=== PATIENT | female | born 1960 | race Caucasian/White ===

== ENCOUNTER 2024-05-07 22:49 | Emergency (ER) | payer OTHER, SELFPAY ==
[2024-05-07 22:57] VITALS: BP 138/85; PULSE 79; TEMP 36.7; O2SAT 97; BMI 38.3
--- NOTE | 2024-05-07 23:06 | XR_ITS ---
The [address] [address] Patient Name: RACHAEL HOPKINS MRN: [id number] date: 1960 Sex: F Assigned Patient Location: ED.MAIN Current Patient Location: ED.MAIN Accession/Order Number: [id number] Exam Date: 05/07/2024 23:11 Report Date: 05/07/2024 23:50 At the request of: OMAR JASSO Procedure: XR ankle LT min 3V XR ankle LT min 3V 05/07/2024 11:11 PM EDT CLINICAL INDICATION: [place] something pop while walking COMPARISON: None. TECHNIQUE: 3 views of the left ankle. FINDINGS: The bones are intact. The alignment is anatomic. The joints are maintained. The soft tissues are grossly unremarkable. XR/XR ankle LT min 3V IMPRESSION: No acute osseous abnormality. Electronically authenticated by: NEGIN PERRY Date: 05/07/2024 23:50
--- NOTE | 2024-05-07 23:07 | ED_ITS ---
HPI HPI - Extremity Injury (Lower) General Chief Complaint: Extremity Injury, Lower Stated Complaint: lower extremity pain Time Seen by Provider: 05/07/24 23:03 Source: patient Mode of arrival: Wheelchair History of Present Illness HPI Narrative: presents complaining of acute pain of her left heel and ankle. States she is not sure what she did. States she was just walking and developed acute pain. No numbness or weakness Related Data Home Medications ?Medication ?Instructions ?Recorded ?Confirmed amitriptyline 25 mg tablet mg 05/07/24 citalopram 20 mg tablet mg 05/07/24 clopidogrel 75 mg tablet mg 05/07/24 gabapentin 300 mg capsule mg 05/07/24 levothyroxine 112 mcg tablet mcg 05/07/24 sacubitril 24 mg-valsartan 26 mg tab 05/07/24 tablet (Entresto) Allergies Allergy/AdvReac Type Severity Reaction Status Date / Time Penicillins Allergy Severe Swelling Verified 05/07/24 23:02 of Lip/Tongue/Throat metoclopramide [From Reglan] Allergy Intermediate Swelling Verified 05/07/24 23:02 of Lip/Tongue/Throat Opioid HPI Opioid Management Most Recent Pain and Opioid Data: No Data to Display Review of Systems ROS Status of ROS 10 or more systems reviewed and unremark able except as noted in history and below Exam Constitutional Vital Signs, click to edit/add: Last Vital Signs Temp 98.1 F 05/07/24 22:57 Pulse 79 05/07/24 22:57 Resp 18 05/07/24 22:57 BP 138/85 05/07/24 22:57 Pulse Ox 97 05/07/24 22:57 O2 Del Method Room Air 05/07/24 22:57 Common normals: no apparent distress, average body habitus, oriented x3, no limitations, healthy appearing, alert and well nourished [facility] Common normals: normocephalic and head/scalp atraumatic Eye Common normals: EOMs intact bilaterally and conjunctivae normal Respiratory Common normals: normal respiratory effort, no retractions and no use of accessory muscles Extremity Other: tenderness left Achilles and ankle Neuro Common normals: oriented x3, CN's II-XII intact bilaterally, moves all extremities and no focal motor deficits Psych Appearance: grossly normal Course Vital Signs Vital signs: Vital Signs Temperature 98.1 F 05/07/24 22:57 Pulse Rate 79 05/07/24 22:57 Respiratory Rate 18 05/07/24 22:57 Blood Pressure 138/85 05/07/24 22:57 Pulse Oximetry 97 05/07/24 22:57 Oxygen Delivery Method Room Air 05/07/24 22:57 Temperature 98.1 F 05/07/24 22:57 Pulse Rate 79 05/07/24 22:57 Respiratory Rate 18 05/07/24 22:57 Blood Pressure 138/85 05/07/24 22:57 Pulse Oximetry 97 05/07/24 22:57 Oxygen Delivery Method Room Air 05/07/24 22:57 MDM - Extremity Injury (Lower) MDM Narrative Medical decision making narrative: patient presents with acute pain left heel. Found to have tenderness of the medial malleolus and Achilles. Foot exam neg. xray of the ankle without acute osseous injury. Patient informed of the working diagnosis of partial tear of the Achilles. Placed in a CAM boot and provided crutches. 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 Electronically authenticated by: NEGIN PERRY Date: 05/07/2024 23:50 Discharge Plan Discharge Stand Alone Forms: Portal Instructions Chief Complaint: Extremity Injury, Lower Clinical Impression: Partial tear of left Achilles tendon Patient Disposition: Home, Self-Care Prescriptions / Home Meds: No Action clopidogrel 75 mg tablet citalopram 20 mg tablet amitriptyline 25 mg tablet gabapentin 300 mg capsule levothyroxine 112 mcg tablet Entresto 24-26 mg tablet Print Language: [place] Instructions: Achilles Tendon Rupture (ED) Additional Instructions: follow up with your reaming machine operator within next 2-5 days Referrals: ROBERT NEWELL [Primary Care Provider] - 1 week
[2024-05-08] MEDS: HYDROCODONE/ACET 5-325 MG TABLET 2 TAB PO ×2 (00:31→00:46)
[2024-05-08 00:54] VITALS: BP 130/81; PULSE 70; O2SAT 97
== END 2024-05-08 00:50 | disposition home or self-care (01) ==
PROVIDERS: Emergency Provider Internal Medicine; PCP Internal Medicine
DX: S86.012A Strain of left Achilles tendon, initial encounter (principal); X58.XXXA Exposure to other specified factors, initial encounter
CPT/HCPCS: 73610; 99283

== ENCOUNTER 2025-06-15 15:01 | Outpatient (RCR) | payer OTHER, SELFPAY | END 2025-08-21 14:21 | disposition home or self-care (01) | LOC: PT 15:01 | PROVIDERS: PCP Internal Medicine; Visit Provider Personal Emergency Response Attendant | DX: M25.512 Pain in left shoulder (principal); Z98.890 Other specified postprocedural states | CPT/HCPCS: 97014; 97110; 97140; 97162 ==

== ENCOUNTER 2025-08-30 19:52 | Outpatient (OUT) | payer OTHER, SELFPAY ==
--- OUTSIDE RECORDS SUMMARY | 2025-08-25 07:38 | XMS_ITS ---
Author Name Auto Generated Organization OHIP Support Name Relationship Address Phone Michael, [place] [address] [phone] Josh Liang Next of Kin [address] [place] [id number] + HOPKINS, CODI Next of Kin Unknown + HOPKINS, CODI Next of Kin Unknown + HOPKINS, CODI Next of Kin Unknown + HOPKINS, CODI Next of Kin Unknown + HOPKINS, CODI Next of Kin Unknown + HOPKINS, CODI Next of Kin Unknown + HOPKINS, CODI Next of Kin Unknown + HOPKINS, CODI Next of Kin Unknown + HOPKINS, CODI Next of Kin Unknown + HOPKINS, CODI Next of Kin Unknown + NONE Next of Kin Unknown Unavailable HOPKINS, CODI Next of Kin Unknown + Hopkins, [place] [address] [phone] Josh Liang Next of Kin [address] [facility] [place] [address] + HOPKINS, CODI Next of Kin Unknown + HOPKINS, CODI Next of Kin Unknown + Hopkins, [place] [address] [phone] Wodrich, Josh Next of Kin [address] [facility] [place] [address] + HOPKINS, CODI Next of Kin Unknown + HOPKINS, CODI Next of Kin Unknown + HOPKINS, CODI Next of Kin Unknown + NONE Next of Kin Unknown Unavailable HOPKINS, CODI Next of Kin Unknown + HOPKINS, CODI Next of Kin Unknown + HOPKINS, CODI Next of Kin Unknown + HOPKINS, CODI Next of Kin Unknown + HOPIKNS, CODI Next of Kin Unknown + Hopkins, [place] [address] [phone] Wodrleslie, Josh Next of Kin [address] [place] [address] + HOPKINS, CODI Next of Kin Unknown + HOPKINS, CODI Next of Kin Unknown + HOPKINS, CODI Next of Kin Unknown + HOPKINS, CODI Next of Kin Unknown + HOPKINS, CODI Next of Kin Unknown + HOPKINS, CODI Next of Kin Unknown + Hopkins, [place] [address] [phone] Wodrleslie, Josh Next of Kin [address] [facility] [place] [address] + Care Team Providers Care Db2 Dba Name Role Phone IVAN HERNÁNDEZ Attending Unavailable MELANIE ARTHUR Referring Unavailable ROBERT COLLINS Primary Care Unavailable IVAN HERNÁNDEZ Referring Unavailable ROBERT COLLINS Primary Care Unavailable XU OWUSU Attending Unavailable ROBERT COLLINS Attending Unavailable ROBERT COLLINS Referring Unavailable JR. ALLAN, BERNABE Sumner Attending Unavaila ROBERT Cardona Referring Unavailable JR. ALLAN, BERNABE Sumner Referring Unavaila diana HUNT JR., BERNABE Sumner Referring Unavaila diana HUNT JR., BERNABE Smuner Attending Unavaila RICHARD Holloway Attending Unavailable ISIDRO, RICHARD Gayle Attending Unavailable ISIDRO, RICHARD Gayle Attending Unavailable ISIDRO, RICHARD Gayle Attending Unavailable JOSH VELA Attending Unavailable JAZMINE BENOIT Referring Unavailable JOSH VELA Attending Unavailable JAZMINE BENOIT Referring Unavailable FELISHA, VIMAL Zapata Attending Unavailable JAZMINE BENOIT Referring Unavailable CHIRAG JONES Attending Unavailable RISALILESA ALLISON Referring Unavailable JAZMINE BENOIT Attending Unavailable UMER, XU Attending Unavailable DIDVIVIEN BARNETT Attending Unavailable OWUSU, XU Attending Unavailable HILL, L Referring Unavailable BRENDA BEGUM Attending Unavailable ISIDRO, RICHARD Gayle Attending Unavailable Hill, L Primary Care Unavailable STEPBERNABE CESAR Attending Unavailable STEPARSENIO BERNABE C Admitting Unavailable Hill, L Primary Care Unavailable STEPANICBERNABE C Attending Unavailable STEPANIC, BERNABE C Admitting Unavailable STEPANIC, BERNABE C Admitting Unavailable Hill, L Primary Care Unavailable STEPBERNABE CESAR Attending Unavailable Jazmien Benoit Attending Unavailab le Hill, Primary Care Unavailable Jazmine Benoit Admitting Unavailab Siobhan Multani Admitting Unavailable Siobhan Whitfield Attending Unavailable [place], Primary Care Unavailable Denys, Jordan S Admitting Unavailable DenysDonalif S Attending Unavailable Hill, Primary Care Unavailable Denys, Jordan S Admitting Unavailable Denys, Jordan S Attending Unavailable Hill, Primary Care Unavailable Liu Campbell Admitting Unavailable Liu Campbell Attending Unavailable [place], Primary Care Unavailable PROBLEMS DATE TYPE CONDITION / CODE ATTENDING STATUS [facility] 08/25/2025 Unknown Encounter for screening for malignant neoplasm of colon / Z12.11(ICD-10) Liu Campbell [facility] 04/29/2025 Final Diagnosis (Discharge) Pain in left shoulder / M25.512(ICD-10) [facility] [place] 04/02/2025 Final Diagnosis (Discharge) Encounter for other preprocedural examination / Z01.818(ICD-10) [facility] [place] 02/10/2025 Unknown Cervicalgia / M54.2(ICD-10) Jordan Mcfarlane [facility] 02/03/2025 Unknown Other chronic pa in / G89.29(ICD-10) Jordan Mcfarlane [facility] 01/06/2025 Admitting Diagnosis Other chest pain / R07.89(ICD-10) [facility] 01/06/2025 Admitting Diagnosis Body mass index (BMI) 39.0-39.9, adult / Z68.39(ICD-10) [facility] 07/08/2024 Admitting Diagnosis Nonrheumatic mitral (valve) insufficiency / I34.0(ICD-10) [facility] 01/23/2024 Admitting Diagnosis Personal history of nicotine dependence / Z87.891(ICD-10) [facility] 12/18/2023 Admitting Diagnosis Atherosclerotic heart disease of [place] coronary artery without angina pectoris / I25.10(ICD-10) [facility] 12/18/2023 Admitting Diagnosis Coronary angioplasty status / Z98.61(ICD-10) [facility] 12/18/2023 Admitting Diagnosis Old myocardial infarction / I25.2(ICD-10) [facility] 12/18/2023 Admitting Diagnosis Ischemic cardiomyopathy / I25.5(ICD-10) [facility] 12/18/2023 Admitting Diagnosis Essential (primary) hypertension / I10(ICD-10) [facility] 12/18/2023 Admitting Diagnosis Mixed hyperlipidemia / E78.2(ICD-10) [facility] 10/20/2024 Unknown Other interverte bral disc degeneration, lumbar region with discogenic back pain and lower extremity pain / M51.362(ICD-10) Jazmine Benoit [facility] 08/15/2024 Unknown Unspecified atrioventricular block / I44.30(ICD-10) [facility] 08/15/2024 Unknown Bradycardia, unspecified / R00.1(ICD-10) [facility] 08/15/2024 Unknown Syncope and darshana apse / R55(ICD-10) [facility] PROCED[facility] No Procedure Records Found RESULTS CODING SUMMARY Observed: 05/03/2025 12:11 PM Status: F Source: [facility] HTMLBase 64 [id number] [file] [id number] PATIENT HANDOUT Observed: 04/30/2025 4:13 PM Status: C Source: [facility] Outpatient Shoulder Discharg e Instructions 1.) For the next 24 hours, do not drink any alcoholic beverages, drive a motor vehicle, operate machinery or power tools, make any important decisions or sign important papers. 2.) Rest at home with moderate activity as tolerated for at least 24 hours. 3.) You may feel dizzy, lightheaded or sleepy following surgery. Please, have someone with you for the rest of the day and during the night. 4.) You may eat when you prefer, but it is usually best to start with liquids and gradually work up to solid foods. 5.) If you experience persistent nausea or vomiting, pain not controlled with your pain medicine and ice, bleeding that you feel is excessive, swelling or fever, please call Dr. Hunt at [phone]. 6.) Keep dressings in place, clean and dry until 05/04/25. 7.) On 05/04/25, remove the dressings, shower and cover the incision with band aids. 8.) Flex and extend elbow 15 times twice a day starting tomorrow. 9.) Use the sling continuously except to bathe. 10.) DO NOT LIFT ARM AWAY FROM SIDE!! 11.) Use Ice as needed to help with pain control. INPATIENT PATIENT SUMMARY Observed: 04/03 4:13 PM Status: C Source: [place] [address] Patient Discharge Instructions Name: ADELA HOPKINS : 1960 Patient Address: [address] [place] [address] Primary Care Provider: Name: Robert Collins After you are discharged if you find you have any questions, please, call [phone] ext [phone] to speak to a nurse. Discharge Diagnosis: Acute pain of left shoulder Prescription Information: If you have been given a prescription for narcotics, seek immediate medical attention if you have any difficulty breathing or any sudden status changes such as confusion and sleepiness. If you or anyone you know is experiencing suicidal thoughts, mental health, alcohol and/or drug addiction problems; contact the [facility] 24/06 Crisis Hotline -Text 4HLDK to 913223. If you received any narcotics, sedation, or any other medication that causes drowsiness for the next 24 hours, unless otherwise directed: ? Do not drive a car. ? Do not operate machinery such as power tools, lawn mowers, drills, sewing machines, or stoves ? Avoid alcoholic beverages and drugs for allergies, nerves, or sleep ? Do not make important personal or business decisions or sign any legal documents [facility] would like to thank you for allowing us to assist you with your healthcare needs. The following includes patient education materials and information regarding your injury/illness. ADELA HOPKINS has been given the following list of follow-up instructions, prescriptions, and patient education materials: Follow-up Instructions With: Address: When: Richard Camarena [address] [place] [address] Business (1) 05/14/2025 10:30 AM With: Address: When: [address], [facility] [address] [place] [place] [id number] [place] (1) Medications During the course of your visit, your medication list was updated with the most current information. The details of those changes are reflected below: Medications to Continue That Have Not Changed Other Medications amitriptyline (amitriptyline 50 mg oral tablet) 1 tab(s) Oral (given by mouth) once a day (at bedtime) as needed sleep. aspirin (aspirin 81 mg oral delayed release tablet) 1 tab(s) Oral (given by mouth) every day. atorvastatin (atorvastatin 40 mg oral tablet) 1 tab(s) Oral (given by mouth) every day. carvedilol (carvedilol 3.125 mg oral tablet) 1 tab(s) Oral (given by mouth) 2 times per day. cholecalciferol (Vitamin D3 1000 intl units oral capsule) 1 cap(s) Oral (given by mouth) every day. citalopram (CeleXA 40 mg oral tablet) 1 tab(s) Oral (given by mouth) every day. clopidogrel (Plavix 75 mg oral tablet) 1 tab(s) Oral (given by mouth) every day. cyanocobalamin (Vitamin B12 50 mcg oral tablet) 1 tab(s) Oral (given by mouth) every day. gabapentin (gabapentin 300 mg oral capsule) 2 cap(s) Oral (given by mouth) 2 times per day. levalbuterol (Xopenex HFA 45 mcg/inh inhalation aerosol) 2 puff(s) Inhale (breathe in) every 6 hours. as needed for wheezing. levothyroxine (levothyroxine 100 mcg (0.1 mg) oral tablet) 1 tab(s) Oral (given by mouth) every day. meclizine (meclizine 25 mg oral tablet) 1 tab(s) Oral (given by mouth) 3 times per day as needed for dizziness. multivitamin (Multi Vitamin+) 1 tab(s) Oral (given by mouth) Saturday, Saturday, and Saturday. nitroglycerin (nitroglycerin 0.4 mg sublingual tablet) 1 tab(s) Sublingual (dissolve under the tongue) every 5 minutes as needed for chest pain. pantoprazole (Protonix 40 mg oral delayed release tablet) 1 tab(s) Oral (given by mouth) every day as needed indigestion. sacubitril-valsartan (Entresto 24 mg-26 mg oral tablet) 1 tab(s) Oral (given by mouth) 2 times per day. semaglutide (Wegovy (1.7 mg dose) subcutaneous solution) 1.7 Milligram Subcutaneous (under the skin) Every . It is important to always keep an active list of medications available so that you can share with other providers and manage your medications appropriately. As an additional courtesy, we are also providing you with your final active medications list that you can keep with you. amitriptyline (amitriptyline 50 mg oral tablet) 1 tab(s) Oral (given by mouth) once a day (at bedtime) as needed sleep. aspirin (aspirin 81 mg oral delayed release tablet) 1 tab(s) Oral (given by mouth) every day. atorvastatin (atorvastatin 40 mg oral tablet) 1 tab(s) Oral (given by mouth) every day. carvedilol (carvedilol 3.125 mg oral tablet) 1 tab(s) Oral (given by mouth) 2 times per day. cholecalciferol (Vitamin D3 1000 intl units oral capsule) 1 cap(s) Oral (given by mouth) every day. citalopram (CeleXA 40 mg oral tablet) 1 tab(s) Oral (given by mouth) every day. clopidogrel (Plavix 75 mg oral tablet) 1 tab(s) Oral (given by mouth) every day. cyanocobalamin (Vitamin B12 50 mcg oral tablet) 1 tab(s) Oral (given by mouth) every day. gabapentin (gabapentin 300 mg oral capsule) 2 cap(s) Oral (given by mouth) 2 times per day. levalbuterol (Xopenex HFA 45 mcg/inh inhalation aerosol) 2 puff(s) Inhale (breathe in) every 6 hours. as needed for wheezing. levothyroxine (levothyroxine 100 mcg (0.1 mg) oral tablet) 1 tab(s) Oral (given by mouth) every day. meclizine (meclizine 25 mg oral tablet) 1 tab(s) Oral (given by mouth) 3 times per day as needed for dizziness. multivitamin (Multi Vitamin+) 1 tab(s) Oral (given by mouth) Saturday, Saturday, and Saturday. nitroglycerin (nitroglycerin 0.4 mg sublingual tablet) 1 tab(s) Sublingual (dissolve under the tongue) every 5 minutes as needed for chest pain. pantoprazole (Protonix 40 mg oral delayed release tablet) 1 tab(s) Oral (given by mouth) every day as needed indigestion. sacubitril-valsartan (Entresto 24 mg-26 mg oral tablet) 1 tab(s) Oral (given by mouth) 2 times per day. semaglutide (Wegovy (1.7 mg dose) subcutaneous solution) 1.7 Milligram Subcutaneous (under the skin) Every . Take only the medications listed above. Contact your doctor prior to taking any medications not on this list. Diet & Activity Patient Activity Level: As Tolerated Patient Diet: Regular Patient Activity Restrictions: Discontinue Alcohol Use, No driving, No heavy lifting, Stop Smoking Comment: Patient education materials, if any, will display below Outpatient Shoulder Discharge Instructions 1.) For the next 24 hours, do not drink any alcoholic beverages, drive a motor vehicle, operate machinery or power tools, make any important decisions or sign important papers. 2.) Rest at home with moderate activity as tolerated for at least 24 hours. 3.) You may feel dizzy, lightheaded or sleepy following surgery. Please, have someone with you for the rest of the day and during the night. 4.) You may eat when you prefer, but it is usually best to start with liquids and gradually work up to solid foods. 5.) If you experience persistent nausea or vomiting, pain not controlled with your pain medicine and ice, bleeding that you feel is excessive, swelling or fever, please call Dr. Hunt at [phone]. 6.) Keep dressings in place, clean and dry until 05/04/25. 7.) On 05/04/25, remove the dressings, shower and cover the incision with band aids. 8.) Flex and extend elbow 15 times twice a day starting tomorrow. 9.) Use the sling continuously except to bathe. 10.) DO NOT LIFT ARM AWAY FROM SIDE!! 11.) Use Ice as needed to help with pain control. Viruses or Bacteria What?s got you sick? Antibiotics only treat bacterial infections. Viral illnesses cannot be treated with antibiotics. When an antibiotic is not prescribed, ask your healthcare professional for tips on how to relieve symptoms and feel better. Usual Cause Illness Viruses Bacteria Antibiotic Needed Cold/Runny Nose NO Bronchitis/Chest Cold (in otherwise healthy children and adults) NO Whooping Cough Yes Flu NO Strep Throat Yes Sore Throat (except strep) NO Fluid in the middle ear (otitis media with effusion) NO Urinary Tract Infection Yes Antibiotics Aren?t Always the Answer www.cdc.gov/getsmart GET SMART Know When Antibiotics Work U.S. Department of Health and Human Services Centers for Disease Control and Prevention August 2014 INPATIENT CLINICAL SUMMARY Observed: 4:13 PM Status: C Source: [facility] SURGERY Clinical Discharge Summary PERSON INFORMATION Name ADELA HOPKINS Age 64 Years 1960 Sex FEMALE Language Ukrainian PCP Robert Collins Marital Status Med Service Ambulatory Surgery Acct# Arrival 04/30/2025 10:21:22 Visit Reason SURGERY - LEFT SHOULDER ARHTROSCOPY WITH ROTATOR CUFF REPAIR Acuity LOS 057 07:44 Address: [address] [place] [address] Comment: PROVIDER INFORMATION VITALS INFORMATION Vital Sign Triage Latest Temp Oral Temp Temporal Temp Intravascular Temp Axillary Temp Rectal 02 Sat 96 % 94 % Respiratory Rate Peripheral Pulse Rate Apical Heart Rate Blood Pressure / 66 mmHg / 80 mmHg Comment: MEDICAL INFORMATION Allergy Info: ticagrelor; esomeprazole; Reglan; cefdinir; penicillin Prescriptions Given: amitriptyline (amitriptyline 50 mg oral tablet) 1 tab(s) Oral (given by mouth) once a day (at bedtime) as needed sleep. aspirin (aspirin 81 mg oral delayed release tablet) 1 tab(s) Oral (given by mouth) every day. atorvastatin (atorvastatin 40 mg oral tablet) 1 tab(s) Oral (given by mouth) every day. carvedilol (carvedilol 3.125 mg oral tablet) 1 tab(s) Oral (given by mouth) 2 times per day. cholecalciferol (Vitamin D3 1000 intl units oral capsule) 1 cap(s) Oral (given by mouth) every day. citalopram (CeleXA 40 mg oral tablet) 1 tab(s) Oral (given by mouth) every day. clopidogrel (Plavix 75 mg oral tablet) 1 tab(s) Oral (given by mouth) every day. cyanocobalamin (Vitamin B12 50 mcg oral tablet) 1 tab(s) Oral (given by mouth) every day. gabapentin (gabapentin 300 mg oral capsule) 2 cap(s) Oral (given by mouth) 2 times per day. levalbuterol (Xopenex HFA 45 mcg/inh inhalation aerosol) 2 puff(s) Inhale (breathe in) every 6 hours. as needed for wheezing. levothyroxine (levothyroxine 100 mcg (0.1 mg) oral tablet) 1 tab(s) Oral (given by mouth) every day. meclizine (meclizine 25 mg oral tablet) 1 tab(s) Oral (given by mouth) 3 times per day as needed for dizziness. multivitamin (Multi Vitamin+) 1 tab(s) Oral (given by mouth) Saturday, Saturday, and Saturday. nitroglycerin (nitroglycerin 0.4 mg sublingual tablet) 1 tab(s) Sublingual (dissolve under the tongue) every 5 minutes as needed for chest pain. pantoprazole (Protonix 40 mg oral delayed release tablet) 1 tab(s) Oral (given by mouth) every day as needed indigestion. sacubitril-valsartan (Entresto 24 mg-26 mg oral tablet) 1 tab(s) Oral (given by mouth) 2 times per day. semaglutide (Wegovy (1.7 mg dose) subcutaneous solution) 1.7 Milligram Subcutaneous (under the skin) Every . Medication List: Medications to Continue That Have Not Changed Other Medications amitriptyline (amitriptyline 50 mg oral tablet) 1 tab(s) Oral (given by mouth) once a day (at bedtime) as needed sleep. aspirin (aspirin 81 mg oral delayed release tablet) 1 tab(s) Oral (given by mouth) every day. atorvastatin (atorvastatin 40 mg oral tablet) 1 tab(s) Oral (given by mouth) every day. carvedilol (carvedilol 3.125 mg oral tablet) 1 tab(s) Oral (given by mouth) 2 times per day. cholecalciferol (Vitamin D3 1000 intl units oral capsule) 1 cap(s) Oral (given by mouth) every day. citalopram (CeleXA 40 mg oral tablet) 1 tab(s) Oral (given by mouth) every day. clopidogrel (Plavix 75 mg oral tablet) 1 tab(s) Oral (given by mouth) every day. cyanocobalamin (Vitamin B12 50 mcg oral tablet) 1 tab(s) Oral (given by mouth) every day. gabapentin (gabapentin 300 mg oral capsule) 2 cap(s) Oral (given by mouth) 2 times per day. levalbuterol (Xopenex HFA 45 mcg/inh inhalation aerosol) 2 puff(s) Inhale (breathe in) every 6 hours. as needed for wheezing. levothyroxine (levothyroxine 100 mcg (0.1 mg) oral tablet) 1 tab(s) Oral (given by mouth) every day. meclizine (meclizine 25 mg oral tablet) 1 tab(s) Oral (given by mouth) 3 times per day as needed for dizziness. multivitamin (Multi Vitamin+) 1 tab(s) Oral (given by mouth) Saturday, Saturday, and Saturday. nitroglycerin (nitroglycerin 0.4 mg sublingual tablet) 1 tab(s) Sublingual (dissolve under the tongue) every 5 minutes as needed for chest pain. pantoprazole (Protonix 40 mg oral delayed release tablet) 1 tab(s) Oral (given by mouth) every day as needed indigestion. sacubitril-valsartan (Entresto 24 mg-26 mg oral tablet) 1 tab(s) Oral (given by mouth) 2 times per day. semaglutide (Wegovy (1.7 mg dose) subcutaneous solution) 1.7 Milligram Subcutaneous (under the skin) Every . Medications to Continue That Have Not Changed Other Medications amitriptyline (amitriptyline 50 mg oral tablet) 1 tab(s) Oral (given by mouth) once a day (at bedtime) as needed sleep. aspirin (aspirin 81 mg oral delayed release tablet) 1 tab(s) Oral (given by mouth) every day. atorvastatin (atorvastatin 40 mg oral tablet) 1 tab(s) Oral (given by mouth) every day. carvedilol (carvedilol 3.125 mg oral tablet) 1 tab(s) Oral (given by mouth) 2 times per day. cholecalciferol (Vitamin D3 1000 intl units oral capsule) 1 cap(s) Oral (given by mouth) every day. citalopram (CeleXA 40 mg oral tablet) 1 tab(s) Oral (given by mouth) every day. clopidogrel (Plavix 75 mg oral tablet) 1 tab(s) Oral (given by mouth) every day. cyanocobalamin (Vitamin B12 50 mcg oral tablet) 1 tab(s) Oral (given by mouth) every day. gabapentin (gabapentin 300 mg oral capsule) 2 cap(s) Oral (given by mouth) 2 times per day. levalbuterol (Xopenex HFA 45 mcg/inh inhalation aerosol) 2 puff(s) Inhale (breathe in) every 6 hours. as needed for wheezing. levothyroxine (levothyroxine 100 mcg (0.1 mg) oral tablet) 1 tab(s) Oral (given by mouth) every day. meclizine (meclizine 25 mg oral tablet) 1 tab(s) Oral (given by mouth) 3 times per day as needed for dizziness. multivitamin (Multi Vitamin+) 1 tab(s) Oral (given by mouth) Saturday, Saturday, and Saturday. nitroglycerin (nitroglycerin 0.4 mg sublingual tablet) 1 tab(s) Sublingual (dissolve under the tongue) every 5 minutes as needed for chest pain. pantoprazole (Protonix 40 mg oral delayed release tablet) 1 tab(s) Oral (given by mouth) every day as needed indigestion. sacubitril-valsartan (Entresto 24 mg-26 mg oral tablet) 1 tab(s) Oral (given by mouth) 2 times per day. semaglutide (Wegovy (1.7 mg dose) subcutaneous solution) 1.7 Milligram Subcutaneous (under the skin) Every . Medications to Continue That Have Not Changed Other Medications amitriptyline (amitriptyline 50 mg oral tablet) 1 tab(s) Oral (given by mouth) once a day (at bedtime) as needed sleep. aspirin (aspirin 81 mg oral delayed release tablet) 1 tab(s) Oral (given by mouth) every day. atorvastatin (atorvastatin 40 mg oral tablet) 1 tab(s) Oral (given by mouth) every day. carvedilol (carvedilol 3.125 mg oral tablet) 1 tab(s) Oral (given by mouth) 2 times per day. cholecalciferol (Vitamin D3 1000 intl units oral capsule) 1 cap(s) Oral (given by mouth) every day. citalopram (CeleXA 40 mg oral tablet) 1 tab(s) Oral (given by mouth) every day. clopidogrel (Plavix 75 mg oral tablet) 1 tab(s) Oral (given by mouth) every day. cyanocobalamin (Vitamin B12 50 mcg oral tablet) 1 tab(s) Oral (given by mouth) every day. gabapentin (gabapentin 300 mg oral capsule) 2 cap(s) Oral (given by mouth) 2 times per day. levalbuterol (Xopenex HFA 45 mcg/inh inhalation aerosol) 2 puff(s) Inhale (breathe in) every 6 hours. as needed for wheezing. levothyroxine (levothyroxine 100 mcg (0.1 mg) oral tablet) 1 tab(s) Oral (given by mouth) every day. meclizine (meclizine 25 mg oral tablet) 1 tab(s) Oral (given by mouth) 3 times per day as needed for dizziness. multivitamin (Multi Vitamin+) 1 tab(s) Oral (given by mouth) Saturday, Saturday, and Saturday. nitroglycerin (nitroglycerin 0.4 mg sublingual tablet) 1 tab(s) Sublingual (dissolve under the tongue) every 5 minutes as needed for chest pain. pantoprazole (Protonix 40 mg oral delayed release tablet) 1 tab(s) Oral (given by mouth) every day as needed indigestion. sacubitril-valsartan (Entresto 24 mg-26 mg oral tablet) 1 tab(s) Oral (given by mouth) 2 times per day. semaglutide (Wegovy (1.7 mg dose) subcutaneous solution) 1.7 Milligram Subcutaneous (under the skin) Every . Comment: Lab and Radiology Results Laboratory or Other Results This Visit (last charted value for your 04/30/2025 visit) No Laboratory or Other Results This Visit DIET & ACTIVITY Patient Activity Level: Patient Diet: Patient Activity Restrictions: DISCHARGE INFORMATION Discharge Disposition: Discharge Location: DEPART REASON INCOMPLETE INFORMATION PATIENT EDUCATION INFORMATION Instructions: Stepanic Shoulder Discharge Instructions ([facility]MPATRICK) Follow up: With: Address: When: Richard Camarena [address] [place] [id number] Business (1) 05/14/2025 10:30 AM With: Address: When: [address], [address] [place] [id number] Business (1) DIAGNOSIS Acute pain of left shoulder Comment: PHYS DOC NOTES ANESTHESIA NOTE Observed: 04/30/2025 3:32 PM Status: F Source: [facility] Patient: ADELA HOPKINS Age: 64 years Sex: FEMALE : 1960 Associated Diagnoses: None Author: Rafael Solorio MD Postoperative Information Post Operative Note: Post Anesthesia Care Unit. Health Status Allergies: Allergic Reactions (All) Severe Penicillin- No reactions were documented. Ticagrelor- No reactions were documented. Moderate Cefdinir- No reactions were documented. Reglan- No reactions were documented. Nonallergic Reactions (All) Mild Esomeprazole- No reactions were documented. Canceled/Inactive Reactions (All) Moderate Phenergan- No reactions were documented. Mild Toradol- No reactions were documented. Physical Examination Vital Signs 04/30/2025 15:24 EDT Temperature Temporal 36.0 DegC LOW Heart Rate Monitored 82 bpm Respiratory Rate 14 br/min Systolic Blood Pressure 134 mmHg HI Diastolic Blood Pressure 82 mmHg HI Mean Arterial Pressure, Cuff 99 mmHg SpO2 100 % Oxygen Flow Rate 6 L/min Oxygen Therapy Simple mask SpO2 Location Left hand General: No acute distress. Respiratory: Respirations are non-labored. Review / Management Condition: Stable. Assessment Anesthetic outcome No anesthetic complications noted. Adequate pain relief. No Complaint of nausea and vomiting. Plan Transfer/ Discharge: Patient can be discharged from PACU when criteria met. Condition stable. [Electronically Signed on: 04/30/2025 15:32 EDT] Rafael Solorio MD[Verified on: 04/30/2025 15:32 EDT] Rafael Solorio MD [facility] POSTOPERATIVE RECORD Observed: 04/03 1:40 PM Status: F Source: [facility] Phase II Record Summary Primary Physician: BERNABE HUNT DO Finalized Date/Time: 04/30/25 16:50:41 Pt. Name: ADELA HOPKINS/Sex: 1960 FEMALE Med Rec #: [id number] Physician: BERNABE HUNT DO Financial #: [id number] Pt. Type: D Room/Bed: / Admit/Disch: 04/30/25 10:21:22 - Institution: Phase II Case Times [facility] Pre-Care Text: Patient is free from s/s of injury. Patient remains free from compromised physical state related to surgery or anesthesia. Patient comfort maintained. Patient/family verbalize understanding of discharge instructions. Entry 1 In PACU II 04/30/25 15:58:00 Discharge from PACU 04/30/25 16:42:00 II Last Modified By: Patty Cochran RN 04/30/25 16:50:33 Post-Care Text: The patient remains free from s/s of injury. Patient's vital signs stable, circulation maintained, return to preop mental and physical status, opsite/dressing intact, minimal or absent nausea and vomiting, tolerates po intake. Patient verbalizes adequate pain control. Patient/family express understanding of discharge instructions. Finalized By: Patty Cochran RN Document Signatures Signed By: Patty Cochran RN 04/30/25 16:50 MAGR INTRAOPERATIVE RECORD Observed: 1:40 PM Status: C Source: [facility] Intra-Op Record Summary Primary Physician: BERNABE HUNT DO Finalized Date/Time: 04/30/25 16:48:53 Pt. Name: ADELA HOPKINS /Sex: 1960 FEMALE Med Rec #: [id number] Physician: BERNABE HUNT DO Financial #: [id number] Pt. Type: D Room/Bed: / Admit/Disch: 04/30/25 10:21:22 - Institution: Case Times MAGR Entry 1 Patient In Room Time 04/30/25 13:05:00 Out Room Time 04/30/25 15:20:00 Anesthesia Start Time 04/30/25 13:05:00 Stop Time 04/30/25 15:21:00 Surgery Start Time 04/30/25 13:40:00 Stop Time 04/30/25 15:18:00 Last Modified By: Pilar Alvarez RN 04/30/25 15:46:26 Case Attendance MAGR Entry 1 Entry 2 Entry 3 Case Attendee BERNABE HUNT Satya S MD Long, Barbara RN Role Performed Surgeon - Primary Anesthesiologist of Fiberglass Model Maker Record Time In 04/30/25 13:05:00 04/30/25 13:05:00 04/30/25 13:05:00 Time Out 04/30/25 15:20:00 04/30/25 15:20:00 04/30/25 15:20:00 Procedure Arthroscopy Arthroscopy Arthroscopy Shoulder(Left) Shoulder(Left) Shoulder(Left) Last Modified By: Pilar Alvarez RN, Barbara RN Long, Barbara RN 04/30/25 15:46:27 04/30/25 15:46:27 04/30/25 15:46:27 Entry 4 Entry 5 Case Attendee Lilo Polk CST, Lauren M POCKETED SPRING MACHINE OPERATOR CSFA Role Performed Scrub Personnel Crystal Inspector Time In 04/30/25 13:05:00 04/30/25 13:05:00 Time Out 04/30/25 15:20:00 04/30/25 15:04:00 Procedure Arthroscopy Arthroscopy Shoulder(Left) Shoulder(Left) Last Modified By: Pilar Alvarez RN, Barbara RN 04/30/25 15:46:27 04/30/25 15:46:27 General Comments: Pamela - Arthrex rep Surgical Procedures MAGR Pre-Care Text: A.20 Verifies operative procedure, surgical site, and laterality Im.150 Develops individualized plan of care Entry 1 Procedure Arthroscopy Shoulder Primary Procedure Yes Primary Surgeon BERNABE HUNT DO Modifiers Left Surgeon Comment LEFT SHOULDER Start 04/30/25 13:40:00 ARHTROSCOPY WITH ROTATOR CUFF REPAIR, BICEP TENODESIS ON LEFT Stop 04/30/25 15:18:00 Anesthesia Type General Surgical Service Orthopedics Wound Class Clean Technique Details Closure Technique Primary Entire procedure No was performed via laparoscope or robotic assistance Last Modified By: Pilar Alvarez RN 04/30/25 15:46:29 Post-Care Text: O.730 The patient's care is consistent with the individualized perioperative plan of care General Case Data MAGR Pre-Care Text: A.350.1 Classifies surgical wound Entry 1 Case Information OR MAGR OR 05 Case Level Level 4 Wound Class Clean Specialty Orthopedics ASA Class 3 Diagnosis Preop Diagnosis LEFT ROTATOR CUFF TEAR Postop Same As Preop Yes Postop Diagnosis LEFT ROTATOR CUFF TEAR Blunt or No Is the procedure No penetrating injury considered occured prior to Emergent/Urgent? the start of the procedure: Last Modified By: Pilar Alvarez RN 04/30/25 13:49:09 Post-Care Text: O.760 Patient receives consistent and comparable care regardless of the setting Time Out MAGR Entry 1 Procedure(s) Arthroscopy Shoulder(Left) Time Out Checklist Verifications Team Introductions Yes Confirmed Identity, Yes Completed Procedure, Incision Site, and Consent(s) Presence of Yes Site Verification, Yes Necessary Site Marking, Site Procedural Marking Equipment, Devices, Alternative, and/or and Implants Site Marking Verified Exception in Accordance with Facility Policy Anesthesia Review Antibiotic Received Yes All Anesthesia Yes Within an Concerns Addressed Appropriate Time Interval Prior to Surgical Incision Surgeon Review Anticipated Blood Yes Expected Case Yes Loss Risk Addressed Duration Addressed Critical and Yes Non-Routine Steps to be Performed Addressed Nurse Review Equipment Yes Fire Risk Yes Checks/Concerns Assessment Addressed Completed and Interventions Performed Diagnostic and Yes Sterilization n/a Radiological Test Concerns Addressed Results Displayed are Appropriate and Labeled Other Concerns n/a Addressed Time Out Lilo Polk POCKETED SPRING MACHINE OPERATOR, Time Out Time 04/30/25 13:40:00 Participants Pilar Alvarez RN, Rafael Solorio MD, Becca Gardner POCKETED SPRING MACHINE OPERATOR CSFA, BERNABE HUNT DO Last Modified By: Pilar Alvarez RN 04/30/25 13:50:14 Patient Positioning MAGR Pre-Care Text: A.280 Identifies baseline musculoskeletal status Im.40 Positions the patient Im.80 Applies safety devices Entry 1 Procedure Arthroscopy Body Position Supine Shoulder(Left) Left Arm Position Extended on padded arm Right Arm Position Extended on padded arm board board Left Leg Position Extended Right Leg Position Extended Feet Uncrossed? Yes Press Points Checked Yes Positioning Device Arm Boards, Arm Strap, Outcome Met (O.80) Yes Pillow, Safety Strap Last Modified By: Pilar Alvarez RN 04/30/25 13:50:21 Post-Care Text: E.290 Evaluates musculoskeletal status O.80 Patient is free from signs and symptoms of injury related to positioning Skin Prep MAGR Pre-Care Text: A.30 Verifies allergies Im.270 Performs skin preparation Im.270.1 Implements protective measures to prevent skin and tissue injury due to chemical sources Entry 1 Skin Prep Syntegrity Prep Agents (Im.270) 7.5% Povidone-Iodine Prep By Pilar Alvarez RN Scrub 10% Povidone-Iodine Gilman Prep Area (Im.270) Shoulder, Arm, Hand Prep Area Details Left Skin Prep Agent Dry Yes Without Pooling Hair Removal Syntegrity Hair Removal Methods No hair removal performed Outcome Met (O.100) Yes Last Modified By: Pilar Alvarez RN 04/30/25 13:50:56 Post-Care Text: E.10 Evaluates for signs and symptoms of physical injury to skin and tissue O.100 Patient is free from signs and symptoms of chemical injury Counts Verification MAGR Pre-Care Text: A.20 Verifies operative procedure, surgical site, and laterality A.20.2 Assesses the risk for unintended retained foreign body Im.20 Performs required counts Entry 1 Procedure Arthroscopy Shoulder(Left) Counts Verification Initial Counts Items included in Sponges, Sharps Initial Counts Manual the Initial Count Method Initial Counts Pilar Alvarez RN, Initial Count Time 04/30/25 12:30:00 Performed By Lilo Polk POCKETED SPRING MACHINE OPERATOR Counts Verification Final Counts Items Included in Sponges, Sharps Final Count Method Manual Final Count Final Count Status Correct Final Counts Pilar Alvarez RN, Performed By Lilo Polk POCKETED SPRING MACHINE OPERATOR Final Count Time 04/30/25 15:04:00 Surgeon notified of Yes final counts status Outcome Met (O.20) Yes Last Modified By: Pilar Alvarez RN 04/30/25 15:04:53 Post-Care Text: E.50 Evaluates results of the surgical count O.20 Patient is free from unintended retained foreign objects Patient Care Devices MAGR Pre-Care Text: A.200 Assesses risk for normothermia regulation A.40 Verifies presence of prosthetics or corrective devices Im.280 Implements thermoregulation measures Im.60 Uses supplies and equipment within safe parameters Entry 1 Entry 2 Equipment Type FLOWTRON CALF CUFF REG BLANKET LOWER BODY lita Serial ?# [id number] Equipment Setting FACTORY DEFAULT, 43 DEGREE C BILATERAL CALF Last Modified By: Pilar Alvarez RN, Barbara RN 04/30/25 13:51:39 04/30/25 13:51:39 Post-Care Text: E.10 Evaluates signs and symptoms of physical injury to skin and tissue O.700 Patient is free from signs and symptoms of injury caused by extraneous objects Catheters, Drains & Tubes MAGR Pre-Care Text: A.310 Identifies factors associated with an increased risk for hemorrhage or fluid and electrolyte imbalance Im.250 Administers care to invasive device sites Entry 1 Device Description #16 fr marquez cath Device Type Bladder Present on Arrival? No Inserted By Becca Gardner POCKETED SPRING MACHINE OPERATOR CSFA Inserted Date/Time 04/30/25 13:30:00 DC'd at End of Case? Yes DC'd By Pilar Alvarez RN Discontinued 04/30/25 15:00:00 Date/Time Drainage Details Outcome Met (O.60) Yes Last Modified By: Pilar Alvarez RN 04/30/25 16:48:48 Post-Care Text: E.340 Evaluates tubes and drains are intact and functioning as planned O.60 Patient is free from signs and symptoms of injury caused by extraneous objects General Comments: 170 ml clear yellow urine emptied from marquez Implant Log MAGR Pre-Care Text: A.20 Verifies operative procedure, surgical site, and laterality Im.350 Records implants inserted during the operative or invasive procedure Entry 1 Entry 2 Procedure Arthroscopy Arthroscopy Shoulder(Left) Shoulder(Left) Implant Action Implanted Implanted Implant/Explant Site Shoulder L Shoulder L Implant Identification (MAGR) Description LNT IMPLANT SYSTEM, 3.9 ANCHOR SWIVELOCK SP SWIVELOCK 4.75MM X 24 Quantity 1 1 Size Instructional Interventionist Arthrex Arthrex Catalog Number [id number] Lot/Batch Number Serial Number Donor ID Tissue ID Manufactured Date Expiration Date 01/01/27 01/01/29 Device Identifier Human Readable ARTURO Machine Readable ARTURO Usage Data Explant Condition Reason for Explant Explant Disposition Reason Not Retained Document if Allograft or Xenograft Reconstitution Fluid Soaking Solution Method of Tissue or Bone Decontamination Implanted By BERNABE HUNT GEORGE C DO Last Modified By: Pilar Alvarez RN, Barbara RN 04/30/25 14:12:24 04/30/25 14:58:02 Post-Care Text: E.30 Evaluates verification process for correct patient, site, side and level surgery O.30 Patient's procedure is performed on the correct site, side, and level Dressing/Packing MAGR Pre-Care Text: A.350 Assesses susceptibility for infection Im.290 Administer care to wound sites Entry 1 Skin Prep Agent Yes Site Shoulder Removed Prior to Dressing? Site Details Left Dressing Item Details Dressing Item 4x4's, ABD Tape (Im.290) Foam (Im.290) Outcome Met Yes Last Modified By: Pilar Alvarez RN 04/30/25 13:51:59 Post-Care Text: E.200 Evaluates progress of wound healing O.200 Patient's wound perfusion is consistent with or improved from baseline levels Departure from OR MAGR Entry 1 Present on Depart Oxygen Via Stretcher Post-op Destination PACU Skin DFO Condition Dry Description Condition Intact Description Report Given To Patty Cochran RN Airway Maintenance Patient Status Stable Oxygen in Use? Yes Airway Device Simple mask Flow Rate 10 L/min Last Modified By: Pilar Alvarez RN 04/30/25 13:52:13 Fire Risk Assessment MAGR Entry 1 Fire Risk Assessment Score A: Is an Yes B: Is the operative Yes alcohol-based skin or other invasive antiseptic or other procedure being flammable solution performed above the being used xiphoid process or preoperatively? in the oropharynx? C: Is open oxygen Yes D: Is an ESU, Yes or nitrous oxide laser, or being administered? fiber-optic light being used? E: Are there other Yes possible contributors? Last Modified By: Pilar Alvarez RN 04/30/25 13:57:52 Case Comments <None> Finalized By: Pilar Alvarez RN Document Signatures Signed By: Pilar Alvarez RN 04/30/25 15:46 Pilar Alvarez RN 04/30/25 16:48 Unfinalized History Date/Time Username Reason for Unfinalizing Freetext Reason for Unfinalizing 04/30/25 16:48 SLOAN Modify Pick List [facility] PACU RECORD Observed: 04/30/2025 1:40 PM Status: F Source: [facility] PACU Record Summary Primary Physician: BERNABE HUNT DO Finalized Date/Time: 04/30/25 15:58:25 Pt. Name: HOPKINSADELA/Sex: 1960 FEMALE Med Rec #: [id number] Physician: BERNABE HUNT DO Financial #: [id number] Pt. Type: D Room/Bed: / Admit/Disch: 04/30/25 10:21:22 - Institution: PACU Case Times MAGR Entry 1 In PACU I 04/30/25 15:24:00 Discharge from PACU 04/30/25 15:56:00 I Last Modified By: Patty Cochran RN 04/30/25 15:58:19 Finalized By: Patty Cochran RN Document Signatures Signed By: Patty Cochran RN 04/30/25 15:58 [facility] INTRAOPERATIVE RECORD Observed: 12:34 PM Status: F Source: [facility] MAGR Intra-Op Record Summary Primary Physician: Finalized Date/Time: 04/30/25 13:04:10 Pt. Name: ADELA HOPKINS /Sex: 1960 FEMALE Med Rec #: [id number] Physician: BERNABE HUNT DO Financial #: [id number] Pt. Type: D Room/Bed: / Admit/Disch: 04/30/25 10:21:22 - Institution: Case Times MAGR Entry 1 Patient In Room Time 04/30/25 12:27:00 Out Room Time 04/30/25 13:03:00 Anesthesia Start Time 04/30/25 12:33:00 Stop Time 04/30/25 12:37:00 Surgery Start Time 04/30/25 12:34:00 Stop Time 04/30/25 12:37:00 Last Modified By: Duyen Hanson RN 04/30/25 13:03:49 Case Attendance MAGR Entry 1 Entry 2 Case Attendee Rafael Solorio MD, Margaret RN Role Performed Anesthesiologist of Fiberglass Model Maker Record Time In 04/30/25 12:27:00 04/30/25 12:27:00 Time Out 04/30/25 13:03:00 04/30/25 13:03:00 Procedure Interscalene Block Interscalene Block Last Modified By: Duyen Hanson RN, Margaret RN 04/30/25 13:03:59 04/30/25 13:03:59 Surgical Procedures MAGR Pre-Care Text: A.20 Verifies operative procedure, surgical site, and laterality Im.150 Develops individualized plan of care Entry 1 Procedure Interscalene Block Primary Procedure Yes Primary Surgeon Rafael Solorio MD Surgeon Comment INTERSCALENE BLOCK 15 MIN PRIOR TO LEFT SHOULDER SCOPE Start 04/30/25 12:34:00 Stop 04/30/25 12:37:00 Anesthesia Type Regional Block Surgical Service Anesthesia Wound Class Clean Technique Details Closure Technique N/A Entire procedure No was performed via laparoscope or robotic assistance Last Modified By: Duyen Hanson RN 04/30/25 12:47:42 Post-Care Text: O.730 The patient's care is consistent with the individualized perioperative plan of care General Case Data MAGR Pre-Care Text: A.350.1 Classifies surgical wound Entry 1 Case Information OR MAGR Proc Room Case Level None Wound Class Clean Specialty Anesthesia ASA Class 3 Diagnosis Preop Diagnosis INTERSCALENE BLOCK 15 Postop Same As Preop Yes MIN PRIOR TO LEFT SHOULDER SCOPE Postop Diagnosis INTERSCALENE BLOCK 15 MIN PRIOR TO LEFT SHOULDER SCOPE Blunt or No Is the procedure No penetrating injury considered occured prior to Emergent/Urgent? the start of the procedure: Last Modified By: Duyen Hanson RN 04/30/25 12:48:05 Post-Care Text: O.760 Patient receives consistent and comparable care regardless of the setting Time Out MAGR Entry 1 Procedure(s) Interscalene Block Time Out Checklist Verifications Team Introductions Yes Confirmed Identity, Yes Completed Procedure, Incision Site, and Consent(s) Presence of Yes Site Verification, Yes Necessary Site Marking, Site Procedural Marking Equipment, Devices, Alternative, and/or and Implants Site Marking Verified Exception in Accordance with Facility Policy Anesthesia Review Antibiotic Received n/a All Anesthesia Yes Within an Concerns Addressed Appropriate Time Interval Prior to Surgical Incision Surgeon Review Anticipated Blood No Expected Case No Loss Risk Addressed Duration Addressed Critical and No Non-Routine Steps to be Performed Addressed Nurse Review Equipment Yes Fire Risk No Checks/Concerns Assessment Addressed Completed and Interventions Performed Diagnostic and n/a Sterilization n/a Radiological Test Concerns Addressed Results Displayed are Appropriate and Labeled Other Concerns n/a Addressed Time Out Rafael Solorio MD, Time Out Time 04/30/25 12:30:00 Participants Duyen Hanson RN Last Modified By: Duyen Hanson RN 04/30/25 12:48:49 Patient Positioning MAGR Pre-Care Text: A.280 Identifies baseline musculoskeletal status Im.40 Positions the patient Im.80 Applies safety devices Entry 1 Procedure Interscalene Block Body Position Semi-Fowlers Left Arm Position Resting at Side Right Arm Position Resting at Side Left Leg Position Extended Right Leg Position Extended Feet Uncrossed? Yes Press Points Checked Yes Outcome Met (O.80) Yes Last Modified By: Duyen Hanson RN 04/30/25 12:49:50 Post-Care Text: E.290 Evaluates musculoskeletal status O.80 Patient is free from signs and symptoms of injury related to positioning Skin Prep MAGR Pre-Care Text: A.30 Verifies allergies Im.270 Performs skin preparation Im.270.1 Implements protective measures to prevent skin and tissue injury due to chemical sources Entry 1 Skin Prep Syntegrity Prep Agents (Im.270) Chlorhexidine Gluconate Prep By Rafael Solorio MD and Alcohol Prep Area (Im.270) Shoulder, Neck Prep Area Details Left Skin Prep Agent Dry Yes Without Pooling Hair Removal Syntegrity Hair Removal Methods No hair removal performed Outcome Met (O.100) Yes Last Modified By: Duyen Hanson RN 04/30/25 12:50:54 Post-Care Text: E.10 Evaluates for signs and symptoms of physical injury to skin and tissue O.100 Patient is free from signs and symptoms of chemical injury Departure from OR MAGR Entry 1 Present on Depart N/A Via Stretcher Post-op Destination Holder Skin DFO Condition Dry Description Condition Intact Description Airway Maintenance Patient Status Stable Last Modified By: Duyen Hanson RN 04/30/25 12:52:35 Case Comments <None> Finalized By: Duyen Hanson RN Document Signatures Signed By: Duyen Hanson RN 04/30/25 13:04 [facility] PREOPERATIVE RECORD Observed: 04/30 12:30 PM Status: F Source: [facility] Pre-Op Record Summary Primary Physician: BERNABE HUNT DO Finalized Date/Time: 04/30/25 13:04:42 Pt. Name: HOPKINS ADELA JOSE Salter/Sex: 1960 FEMALE Med Rec #: [id number] Physician: BERNABE HUNT DO Financial #: [id number] Pt. Type: D Room/Bed: / Admit/Disch: 04/30/25 10:21:22 - Institution: Pre-Op Case Times MAGR Pre-Care Text: Patient will be optimally prepared for surgery. Patient is free from s/s of injury. Provide information to patient/family related to plan of care. Verify patient allergies. Confirm identity and verify consent before the operative or invasive procedure. Entry 1 Patient Arrival Time 04/30/25 10:30:00 Preop Departure 04/30/25 13:03:00 Last Modified By: Duyen Hanson RN 04/30/25 13:04:37 Post-Care Text: Patient is prepared mentally and physically and is ready for surgery. The patient remains free from s/s of injury. Patient/family express understanding of plan of care and participate in decisions affecting his or her perioperrative plan of care. Allergies documented appropriately. Patient identifiers and consent correct. General Comments: Pt arrives to [facility] ambulatory. Denies CP, cough, cold, COVID like sx. Denies diabetes, pacer/defib, BEBETO. Pt verbalizes understanding of post op anesthesia orders including no driving for 24h. Finalized By: Duyen Hanson RN Document Signatures Signed By: Duyen Hanson RN 04/30/25 13:04 ANESTHESIA NOTE Observed: 04/30/2025 11:38 AM Status: F Source: [facility] Patient: ADELA HOPKINS Age: 64 years Sex: FEMALE : 1960 Associated Diagnoses: None Author: Rafael Solorio MD Preoperative Information Anesthesia history: Patient history: Nausea and vomiting with anesthesia, No difficult intubation, No malignant hyperthermia. Family history: No malignant hyperthermia. Review of Systems Respiratory: No shortness of breath, No apnea. Cardiovascular: CAD s/p stents x 4 few years ago and no issues since, mild and mild MR, No chest pain. Gastrointestinal: No heartburn. Genitourinary: requires marquez cath for surgery per patient. Musculoskeletal: s/p neck fusion with limited ROM on extension. Health Status Allergies: Allergic Reactions (All) Severe Penicillin- No reactions were documented. Ticagrelor- No reactions were documented. Moderate Cefdinir- No reactions were documented. Reglan- No reactions were documented. Nonallergic Reactions (All) Mild Esomeprazole- No reactions were documented. Canceled/Inactive Reactions (All) Moderate Phenergan- No reactions were documented. Mild Toradol- No reactions were documented. Current medications: Home Medications (17) Active amitriptyline 50 mg oral tablet 50 mg = 1 tab(s), PRN, Oral, Once a day (at bedtime) aspirin 81 mg oral delayed release tablet 81 mg = 1 tab(s), Oral, Daily atorvastatin 40 mg oral tablet 40 mg = 1 tab(s), Oral, Daily carvedilol 3.125 mg oral tablet 3.125 mg = 1 tab(s), Oral, BID CeleXA 40 mg oral tablet 40 mg = 1 tab(s), Oral, Daily Entresto 24 mg-26 mg oral tablet 1 tab(s), Oral, BID gabapentin 300 mg oral capsule 600 mg = 2 cap(s), Oral, BID levothyroxine 100 mcg (0.1 mg) oral tablet 100 mcg = 1 tab(s), Oral, Daily meclizine 25 mg oral tablet 25 mg = 1 tab(s), PRN, Oral, TID Multi Vitamin+ 1 tab(s), Oral, MTuW nitroglycerin 0.4 mg sublingual tablet 0.4 mg = 1 tab(s), PRN, Sublingual, q5min Plavix 75 mg oral tablet 75 mg = 1 tab(s), Oral, Daily Protonix 40 mg oral delayed release tablet 40 mg = 1 tab(s), PRN, Oral, Daily Vitamin B12 50 mcg oral tablet 50 mcg = 1 tab(s), Oral, Daily Vitamin D3 1000 intl units oral capsule 25 mcg = 1 cap(s), Oral, Daily Wegovy (1.7 mg dose) subcutaneous solution 1.7 mg, Subcutaneous, qThursday Xopenex HFA 45 mcg/inh inhalation aerosol 2 puff(s), PRN, Inhale, q6hr Problem list: All Problems Asthma / SNOMED CT 251013939 / Confirmed CAD (coronary artery disease) / SNOMED CT 36966567 / Confirmed Depression / SNOMED CT 99642205 / Confirmed GERD (gastroesophageal reflux disease) / SNOMED CT 155217136 / Confirmed Elevated cholesterol / SNOMED CT 55107303 / Confirmed HTN (hypertension) / SNOMED CT 3476550908 / Confirmed Hypothyroidism / SNOMED CT 17352766 / Confirmed Ischemic cardiomyopathy / SNOMED CT 925220785 / Confirmed Nonrheumatic mitral valve regurgitation / SNOMED CT 563373467 / Confirmed Resolved: Heart attack / SNOMED CT 54579028 Histories Family History: Liver cancer Brother Brain tumor Father Stroke Father Heart attack Father Colon cancer Mother Procedure history: Placement of stent in cardiac conduit (1641314877). Comments: 04/02/2025 14:32 Verena Ha RN x4 Cervical spinal fusion (922679305). Comments: 04/02/2025 14:33 Verena Ha RN C3-C7 COCO - Total abdominal hysterectomy (781337860). Arthroplasty of left shoulder (1162834027). Arthroplasty of left knee (2948205289). Appendectomy (693792614). Gallbladder (18526830). Cataract (731501605). Comments: 04/02/2025 14:34 Verena Ha RN bilateral Colonoscopy (521415463). Social History Electronic Cigarette/Vaping Assessment Electronic Cigarette Use: Never. Alcohol Assessment Use: Current. 1-2 times per year Tobacco Assessment Never tobacco user Tobacco Use:. Substance Abuse Assessment Substance use: Never. . Physical Examination Vital Signs (last 24 hrs) Last Charted Temp Temporal 36.6 DegC (APRIL 30:) Heart Rate Monitored 74 bpm (APRIL 30:) Resp Rate 16 br/min (APRIL 30) SBP 114 mmHg (APRIL 30:) DBP 66 mmHg (APRIL 30) General: Alert and oriented, No acute distress. Airway: Mouth: Adequate opening. Neck: No full range of motion. Respiratory: Respirations are non-labored. Cardiovascular: Normal rate. Review / Management Laboratory Results ECG interpretation: SR with 1 deg AVB, old inferior WA. Plan [place] [employer]esthesi[employer] (ASA) physical status classification: Class III. Anesthetic Preoperative Plan Anesthesia: General. , Regional Interscalene Block. Anesthetic plan, risks, benefits, and alternatives discussed with the patient and/or family. Patient verbalized understanding. Informed consent was given. Consent was signed by the patient. [Electronically Signed on: 04/30/2025 11:42 EDT] Rafael Solorio MD[Verified on: 04/30/2025 11:42 EDT] Rafael Solorio MD NOTE Observed: 04/30/2025 11:12 AM Status: F Source: [facility] [id number]#1.00OTGTIFF HISTORY AND PHYSICAL Observed: 10:24 AM Status: F Source: [place] [id number]#1.00OTGTIFF OUTSIDE RECORDS Observed: 04/30/2025 10:21 AM Status: F Source: [place] [id number]#1.00OTGTIFF CONSULTATION/SPECIALIST NOTE Observed: 0 04/30/2025 10:21 AM Status: F Source: [place] [id number]#1.00OTGTIFF CONSENT FORMS Observed: 04/30/2025 10:21 AM Status: F Source: [place] [id number]#1.00OTGTIFF TELEMETRY STRIPS Observed: 04/30/2025 10:21 AM Status: F Source: [place] [id number]#1.00OTGTIFF PROGRESS NOTE - NURSE Observed: 04/29/20 10:56 AM Status: F Source: [facility] Spoke with pt and informed h er to be at hospital at 1030 and NPO after MN, she verbalizes understanding. [Electronically Signed on: 04/29/2025 10:56 EDT] Mirza Bruner RN[Verified on: 04/29/2025 10:56 EDT] Halblaub, Sidsel RN CODING SUMMARY Observed: 04/12/2025 8:22 AM Status: F Source: [facility] HTMLBase 64 TyxudcnrVMo2wBr+PGhlYWQ+ZJ4LPIUgP55peDXcdP8uO9NDVQrWMdzfPHLEPOtXGjMlklWrFB5ezQVf ZXJu [file] V4FjKnwpjZO+PD43XLZmRL19ZzAaWvodez5+RK5onOZ+CV0qaS1oWq== PROGRESS NOTE - NURSE Observed: 04/09/20 12:44 PM Status: F Source: [facility] Dr. Villalobos reviews PAT inform ation and testing results. Ok to proceed with procedure. No orders given. [Electronically Signed on: 04/09/2025 12:46 EDT] Duyen Hanson RN[Verified on: 04/09/2025 12:46 EDT] Duyen Hanson RN PROVIDER ORDERS Observed: 04/08/2025 2:55 PM Status: F Source: [facility] [id number]#1.00OTGTIFF CODING SUMMARY Observed: 04/07/2025 11:38 AM Status: F Source: [facility] HTMLBase 64 BsiuuijzQRo1qRe+PGhlYWQ+TN2BHFYcM08raKKoqE9bL4ENSVmDOpnrOHJMKGmAPoKzujGpVS0vmFBb ZXJu [file] gw31D2r9wEx+ PROGRESS NOTE - NURSE Observed: 04/05/20 9:30 AM Status: F Source: [facility] Patient called, message left . Patient returned call. Informed of only having an ECHO done in Dr. Hernández's office and not EKG. Questioned patient if she could come in to get EKG done, states 04/07/25 she can come in to get it done. Instructed patient to check in at outpatient admittance and they will register her and she can than go to radiology to get the EKG done, verbalized understanding. [Electronically Signed on: 04/05/2025 10:02 EDT] Duyen Hanson RN[Verified on: 04/05/2025 10:02 EDT] Duyen Hanson RN CBC W/ AUTO DIFF Collected: 3:21 PM Status: F Source: [facility] TYPE CODE TESTS RESULT OUT OF RANGE REFERENCE UNITS LAB 5552579([facility]) Man Diff? Auto Unknown LAB 8498034(INC) WBC 5.7 3.5-10.5 x10 LAB 3445194(INC) RBC 3.78 3.70-5.30 x10 LAB 7315991([facility]) Hgb 11.8 11.3-15.9 gm/dL LAB 6902130(INC) Hct 35.1 33.7-40.4 % LAB 6249373(INC) MCV 93 81-100 fL LAB 1730891([facility]) MCH 31 24-34 pg LAB 9600590([facility]) MCHC 34 26-37 gm/dL LAB 8925355([facility]) RDW 15.2 High 11.5-15.0 % LAB 9528424([facility]) Platelet 283 138-427 x10 LAB 1238025([facility]) MPV 8.0 6.3-10.2 fL Performed By: #### [id number] 5, [id number], [id number] #### [facility] (DEFAULT) [address] [place] [address] .AUTO DIFF 1 Collected: 04/02/2025 3:21 PM Status: F Source: [facility] TYPE CODE TESTS RESULT OUT OF RANGE REFERENCE UNITS LAB 8085307(INC) Auto Neut % 62 44-88 % LAB 3639428(INC) Auto Lymph % 28 14-48 % LAB 9367568(INC) Auto Morrow % 8 1-12 % LAB 6247923(INC) Auto Eos % 1.0 0.9-4.0 % LAB 0834664(INC) Auto Baso % 0.6 0.2-2.0 % LAB 2575751(INC) Neut Abs# 3.6 1.5-9.2 x10 LAB 9717107(INC) Lymph Abs# 1.6 1.3-2.9 x10 LAB 2703229(LOINC) Morrow Abs# 0.4 0.0-0.8 x10 LAB 9941565([facility]) Eos Abs# 0.1 0.0-0.4 x10 LAB 2055330([facility]) Baso Abs# 0.0 0.0-0.2 x10 Performed By: #### [id number], [id number], [id number] #### [facility] (DEFAULT) [address] [place] [id number] BMP STANDARD Collected: 3:21 PM Status: F Source: [facility] TYPE CODE TESTS RESULT OUT OF RANGE REFERENCE UNITS LAB 1722349([facility]) BUN/Creat Ratio 15.2 4.6-16.2 LAB 0218902([facility]) Osmolality 277 Unknown mOsm/L LAB 0100581([facility]) Anion Gap 10.1 5.0-19.0 mmol/L LAB 1512584([facility]) BUN 13 8-26 mg/dL LAB 3111552([facility]) Calcium Level 8.6 Low 8.9-10.3 mg /dL LAB 7175426([facility]) CO2 25 21-32 mmol/L LAB 1610046([facility]) Chloride Level 108 101-111 mm ol/L LAB 3214871([facility]) Creatinine Level 0.85 0.60-1.30 mg/dL LAB 9447222([facility]) Glucose Level 89.0 74.0-118.0 mg/dL LAB 3514697([facility]) Potassium Level 4.1 3.6-5.1 mmol/L LAB 0992560([facility]) Sodium Level 139.0 136.0-144.0 mmol/L LAB 6566578([facility]) eGFR AA >60 Unknown mL/min/1. 73m2 LAB 2870439([facility]) eGFR Non AA >60 Unknown mL/mi n/1. 73m2 Performed By: #### [id number] 5, [id number], [id number] #### [facility] (DEFAULT) [address] [place] [address] TRANSTHORACIC ECHO (TTE) COMPLETE Observed: 02/23/2025 7:49 AM Status: F Source: [address], [address], [place] [address] TRANSTHORACIC ECHOCARDIOGRAM REPORT Patient Name: ADELA HOPKINS Reading Physician: [id number] Lindy Daly MD, [facility] Study Date: 02/23/2025 Ordering Provider: [id number] IVAN HERNÁNDEZ MRN/PID: [id number] Fellow: Nurse: Date of /Age: 605/13/1960 Canvas Baster Jumpbasting: Isabel Diaz RDMS, years RDCS, RVT Gender Assigned at F Additional Staff: : Height: 157.48 cm Admit Date: Weight: 97.98 kg Admission Status: Outpatient BSA / BMI: 1.98 m2 / 39.51 Department Location: [facility] kg/m2 [place] Blood Pressure: 132 /70 mmHg Study Type: TRANSTHORACIC ECHO (TTE) COMPLETE Diagnosis/ICD: Atherosclerotic heart disease of [place] coronary artery without angina pectoris-I25.10; Old myocardial infarction-I25.2; Essential (primary) hypertension-I10; Ischemic cardiomyopathy-I25.5 Indication: CAD, CP, HTN, HLD, ICM, MR, PTCA and STEMI CPT Codes: Echo Complete w Full Doppler-68627 Study Detail: The following Echo studies were performed: 2D, M-Mode, Doppler and color flow. PHYSICIAN INTERPRETATION: Left Ventricle: Left ventricular ejection fraction is normal, by visual estimate at 55-60%. There are no regional wall motion abnormalities. The left ventricular cavity size is normal. There is mild increased septal thickness. There is left ventricular concentric remodeling. Spectral Doppler shows a Grade I (impaired relaxation pattern) of left ventricular diastolic filling with normal left atrial filling pressure. Mild concentric left ventricle hypertrophy. Left Atrium: The left atrial size is normal. Right Ventricle: The right ventricle is normal in size. There is normal right ventricular global systolic function. Right Atrium: The right atrial size is normal. Aortic Valve: The aortic valve is trileaflet. There is mild aortic valve thickening. There is evidence of mild aortic valve stenosis. The aortic valve dimensionless index is 0.67. There is no evidence of aortic valve regurgitation. The peak instantaneous gradient of the aortic valve is 9 mmHg. The mean gradient of the aortic valve is 5 mmHg. Mitral Valve: The mitral valve is mildly thickened. The peak instantaneous gradient of the mitral valve is 7 mmHg. There is mild mitral valve regurgitation. Tricuspid Valve: The tricuspid valve is structurally normal. There is trace tricuspid regurgitation. Pulmonic Valve: The pulmonic valve is structurally normal. There is no indication of pulmonic valve regurgitation. Pericardium: No pericardial effusion noted. Aorta: The aortic root is normal. Systemic Veins: The inferior vena cava appears normal in size. In comparison to the previous echocardiogram(s): When compared to study from 02/20/2024, ejection fraction has normalized, the amount of mitral regurgitation has lessened. CONCLUSIONS: 1. Left ventricular ejection fraction is normal, by visual estimate at 55-60%. 2. Spectral Doppler shows a Grade I (impaired relaxation pattern) of left ventricular diastolic filling with normal left atrial filling pressure. 3. Mild concentric left ventricle hypertrophy. 4. There is normal right ventricular global systolic function. 5. Mild mitral valve regurgitation. 6. Mild aortic valve stenosis. 7. When compared to study from 02/20/2024, ejection fraction has normalized, the amount of mitral regurgitation has lessened. QUANTITATIVE DATA SUMMARY: 2D MEASUREMENTS: Normal Ranges: Ao Root d: 2.60 cm (2.0-3.7cm) LAs: 3.25 cm (2.7-4.0cm) RVIDd: 3.25 cm (0.9-3.6cm) IVSd: 1.15 cm (0.6-1.1cm) LVPWd: 1.26 cm (0.6-1.1cm) LVIDd: 4.19 cm (3.9-5.9cm) LVIDs: 2.88 cm LV Mass Index: 90.3 g/m2 LVEDV Index: 27.94 ml/m2 LV % FS 31.2 % LEFT ATRIUM: Normal Ranges: LA Vol A4C: 56.3 ml (22+/-6mL/m2) LA Vol A2C: 55.4 ml LA Vol BP: 56.5 ml LA Vol Index A4C: 28.5ml/m2 LA Vol Index A2C: 28.1 ml/m2 LA Vol Index BP: 28.6 ml/m2 LA Vol A4C: 51.4 ml LA Vol A2C: 51.7 ml LA Vol Index BSA: 26.1 ml/m2 RIGHT ATRIUM: Normal Ranges: RA Vol A4C: 30.4 ml (8.3-19.5ml) RA Vol Index A4C: 15.4 ml/m2 RA Area A4C: 12.4 cm2 RA Major [place] A4C: 4.3 cm LV SYSTOLIC FUNCTION: Normal Ranges: EF-A4C View: 46 % (>=55%) EF-A2C View: 50 % EF-Biplane: 46 % EF-Visual: 58 % LV EF Reported: 58 % LV DIASTOLIC FUNCTION: Normal Ranges: MV Peak E: 1.13 m/s (0.7-1.2 m/s) MV Peak A: 1.31 m/s (0.42-0.7 m/s) E/A Ratio: 0.86 (1.0-2.2) MV e' 0.084 m/s (>8.0) MV lateral e' 0.10 m/s MV medial e' 0.07 m/s E/e' Ratio: 13.43 (<8.0) PulmV Sys Robert: 53.56 cm/s PulmV [place] Robert: 43.21 cm/s PulmV S/D Robert: 1.24 PulmV A Revs Robert: 29.22 cm/s PulmV A Revs Dur: 159.85 msec MITRAL VALVE: Normal Ranges: MV Vmax: 1.35 m/s (<=1.3m/s) MV peak P.3 mmHg (<5mmHg) MV mean P.3 mmHg (<48mmHg) MV VTI: 34.55 cm (10-13cm) MV DT: 148 msec (150-240msec) MV PHT: 43 msec (30-60msec) MVA by PHT: 5.12 cm2 (4-6cm2) MITRAL INSUFFICIENCY: Normal Ranges: MR VTI: 193.65 cm MR Vmax: 509.50 cm/s dP/dt: 548 mmHg/s (>1200mmHg/sec) AORTIC VALVE: Normal Ranges: AoV Vmax: 1.51 m/s (<=1.7m/s) AoV Peak P.1 mmHg (<20mmHg) AoV Mean P.0 mmHg (1.7-11.5mmHg) LVOT Max Robert: 0.93 m/s (<=1.1m/s) AoV VTI: 33.37 cm (18-25cm) LVOT VTI: 22.41 cm LVOT Diameter: 2.12 cm (1.8-2.4cm) AoV Area, VTI: 2.37 cm2 (2.5-5.5cm2) AoV Area,Vmax: 2.18 cm2 (2.5-4.5cm2) AoV Dimensionless Index: 0.67 RIGHT VENTRICLE: RV Basal 2.81 cm RV Mid 2.70 cm RV Major 7.0 cm TAPSE: 17.1 mm RV s' 0.10 m/s TRICUSPID VALVE/RVSP: Normal Ranges: Peak TR Velocity: 2.14 m/s Est. RA Pressure: 5 mmHg RV Syst Pressure: 23 mmHg (< 30mmHg) IVC Diam: 1.40 cm PULMONARY VEINS: PulmV A Revs Dur: 159.85 msec PulmV A Revs Robert: 29.22 cm/s PulmV [place] Robert: 43.21 cm/s PulmV S/D Robert: 1.24 PulmV Sys Robert: 53.56 cm/s AORTA: Asc Ao Diam 2.70 cm [id number] Lindy Daly MD, [facility] Electronically signed on 02/23/2025 at 1:42:36 PM Final XR CERV SPINE AP/LAT/FLX/EXT Observed: 02/10/2025 4:36 PM Status: COMPLETED Source: [facility] [place] [address] XRay Report Signed Patient: Adela Hopkins V MR#: [id number] 8 : 1960 Acct:[id number] Age/Sex: 64 / F ADM Date: 02/10/25 Loc: XD Room: Type: [facility] Attending Dr: Jordan Mcfarlane MD Copies to: Jordan Mcfarlane MD Ordering Provider: Jordan Mcfarlane MD Date of Service: 02/10/25 XR/XR cerv spine AP/LAT/FLX/EXT: M54.2 - Cervicalgia CERVICAL SPINE 4 views: CLINICAL HISTORY: Right-sided neck pain with numbness and tingling. COMPARISON: None FINDINGS: Anterior fusion hardware C4-5 without evidence of hardware complication. There appears be partial bony fusion of C3-4 and C6-7. Mild diffuse facet joint degenerative changes. No prevertebral soft tissue swelling. No pathological motion on flexion or extension views. XR/XR cerv spine AP/LAT/FLX/EXT IMPRESSION: POSTOPERATIVE CHANGES WITHOUT ACUTE PROCESS. Impression dictated by: Maurilio Zhang Jr., D.OSlade02/10/2025 4:38 PM Dictation Location: [place] [address] Transcribed By: [facility] 02/10/25 1638 Dictated By: Maurilio Zhang Jr, DO 02/10/25 1636 Signed By: <Electronically signed by Maurilio Zhang Jr, DO in OV> 02/10/25 1638 MR SHOULDER LEFT WO IV CONTRAST Observed: 02/09/2025 9:53 AM Status: F Source: [facility] EXAMINATION/TECHNIQUE: MR ALIA SNOWDEN LEFT WO IV CONTRAST HISTORY: Chronic left shoulder pain. Limited range of motion. COMPARISON: Radiographs 01/20/2025. RESULT: Rotator Cuff Tendons: Mild to moderate tendinosis involving supraspinatus, infraspinatus, and subscapularis, without tear, with reactive cystic change at the insertions. Teres minor appears intact. Long Head Biceps Tendon: Appears intact with appropriate location. Muscle: Muscle bulk and signal intensity are within normal limits. Labrum: Areas of fraying. Bones and Marrow: No evidence of fracture or bone marrow replacing process. Glenohumeral Joint: Osteophytes without distinct measurable full-thickness chondral defect. Acromioclavicular Joint: Mild to moderate degenerative changes. Undersurface osteophytes. Other: No other significant abnormality. IMPRESSION: Rotator cuff tendinosis, without tear. ELECTRONICALLY SIGNED BY: Michael Morton MD XR PRE/POST MRI XRAY Observed: 4 3:46 PM Status: COMPLETED Source: [facility] [place] [address] XRay Report Signed Patient: Adela Hopkins V MR#: [id number] 8 : 1960 Acct:[id number] Age/Sex: 64 / F ADM Date: 10/20/24 Loc: [facility] Room: Type: [facility] Attending Dr: Jazmine Benoit DO Copies to: Jazmine Benoit DO Ordering Provider: Jazmine Benoit DO Date of Service: 10/20/24 XR/XR pre/post mri xray: LUMBAR PRES Lumbar spine 2 views. Reason for exam: Back pain. FINDINGS: Vertebral body heights appear maintained. Facet joint degenerative changes. No significant disc height loss. XR/XR pre/post mri xray IMPRESSION: Degenerative changes involving the lumbar spine best evaluated by MRI. Impression dictated by: Maurilio Zhang Jr., D.OSlade10/20/2024 3:46 PM Dictation Location: [facility]- Transcribed By: [facility] 10/20/24 1546 Dictated By: Maurilio Zhang Jr, DO 10/20/24 1546 Signed By: <Electronically signed by Maurilio Zhang Jr, DO in OV> 10/20/24 1546 MR LUMBAR SPINE WO CON Observed: 024 3:43 PM Status: COMPLETED Source: [facility] [place] [address] MRI Report Signed Patient: Adela Hopkins V MR#: [id number] 8 : 1960 Acct:[id number] Age/Sex: 64 / F ADM Date: 10/20/24 Loc: [facility] Room: Type: [facility] Attending Dr: Jazmine Benoit DO Copies to: Jazmine Benoit DO Ordering Provider: Jazmine Benoit DO Date of Service: 10/20/24 MR/MR lumbar spine wo con: M51.362 MRI lumbar spine without IV contrast. Reason for exam: Back pain no known injury. COMPARISON: Lumbar spine series 04/28/2020. TECHNIQUE: Multisequence, multiplanar imaging of the lumbar spine was obtained without use of IV contrast. FINDINGS: Vertebral body heights appear maintained. No bone marrow edema. This opacification is noted. Spinal cord terminates in normal position without abnormal cord signal. No paraspinal mass. Partially visualized cyst left kidney. L1-L2: No posterior disc pathology. Mild facet joint degenerative change. No significant canal or neural foraminal stenosis. L2-L3: Mild broad-based disc bulge. Mild facet joint degenerative changes. Mild canal and bilateral neural foraminal stenosis. L3-L4: Mild broad-based disc bulge. Mild facet joint degenerative changes. Mild canal and bilateral neural foraminal stenosis. L4-L5: Mild broad-based disc bulge. Facet joint degenerative change. Mild canal and bilateral foraminal stenosis. L5-S1: No posterior disc pathology. No canal or neural foraminal stenosis. MR/MR lumbar spine wo con IMPRESSION: Multilevel degenerative disc disease as described above without significant canal or neural foraminal stenosis. Impression dictated by: Maurilio Zhang Jr., D.OSlade10/20/2024 3:46 PM Dictation Location: [facility] Transcribed By: [facility] 10/20/24 1546 Dictated By: Maurilio Zhang Jr, DO 10/20/24 1543 Signed By: <Electronically signed by Maurilio Zhang Jr, DO in OV> 10/20/24 1546 CA CARDIAC EVENT MONITOR Observed: 09/16 5:33 PM Status: COMPLETED Source: [facility] [place] [address] Cardiac Event Monitor Signed Patient: Adela Hopkins V MR#: [id number] 8 : 1960 Acct:[id number] Age/Sex: 64 / F ADM Date: 08/15/24 Loc: Room: Type: [facility] Attending Dr: Siobhan Whitfield MD Copies to: MD Tata Sorensen MD Ordering Provider: Siobhan Whitfield MD Date of Service: 08/15/24 CA/CA cardiac event monitor: 30 day monitor--send to [facility] Heart REFERRING PHYSICIAN: Siobhan Whitfield MD REASON FOR STUDY: Syncope. PROCEDURE: The patient underwent 30-day event monitor. Baseline rhythm is normal sinus rhythm with intraventricular conduction delay. The patient reported symptoms of lightheadedness on 2 occasions. One was associated with sinus and the other was sinus tachycardia. Several auto transmissions were sent, documented intermittent first-degree AV block and on one occasion 2:1 AV block. One PVC was noted. CONCLUSION: 1. Normal sinus rhythm with intermittent asymptomatic first-degree AV block and 2:1 AV block. 2. The patient reported symptoms of lightheadedness, on one occasion occurred with sinus and the other was sinus tachycardia. 3. Rare PVCs were noted. Transcribed By: AMISH 09/17/24 1616 Dictated By: Tata Faulkner MD 09/16/24 1733 Signed By: <Electronically signed by MD Tata Faulkner> 09/21/24 1220 ALLERGIES DATE TYPE / CODE NAME / CODE REACTION SEVERITY SOURCE 08/11/2025 Drug Allergy/41 6255516(SN OMED CT) metoclopramide/T3714 88715(RXNORM) Hives, vomitting/rash Unknown [facility] 08/11/2025 Drug Allergy/41 2018100(SN OMED CT) Penicillins/R9144668 76(RXNORM) Swelling of Lip/Tongue/Throa t Severe (Severity Modifier) (Qualifier Value) [facility] 08/11/2025 Drug Allergy/41 7743800(SN OMED CT) naproxen/B115295317( RXNORM) Hives, homicidal Unknown [facility] 08/11/2025 Drug Allergy/41 9265193(SN OMED CT) amoxicillin/K8699398 75(RXNORM) Rash Unknown [facility] 08/11/2025 Drug Allergy/41 0871774(SN OMED CT) penicillin G/B626092967(RXNORM) Rash Unknown [facility] 08/11/2025 Drug Allergy/41 1076448(SN OMED CT) esomeprazole/T977160 918(RXNORM) Hives, homicidal Unknown [facility] 08/11/2025 Drug Allergy/41 5556415(SN OMED CT) ticagrelor/A71227534 1(RXNORM) Difficulty Breathing Unknown [facility] 12/18/2023 DRUG INGREDI/41 4789053(SN OMED CT) LISINOPRIL Cough [facility] 12/18/2023 DRUG INGREDI/41 1261088(SN OMED CT) METOCLOPRAMIDE Rash [facility] 12/18/2023 Drug Class/4195 23728(SNOM ED CT) PENICILLINS Rash [facility] 12/18/2023 DRUG INGREDI/41 4688490(SN OMED CT) TRAMADOL Itching [facility] Drug/40373 1003(SNOME D CT) penicillin Severe [facility] Drug/87049 1003(SNOME D CT) cefdinir Moderate [facility] Drug/65668 1003(SNOME D CT) Reglan Moderate [facility] Drug/41675 1003(SNOME D CT) esomeprazole Mild [facility] Drug/60965 1003(SNOME D CT) ticagrelor Severe [facility] ENCOUNTERS ADMIT/DISCHARGE ACCOUNT NUMBER ADMITTING ENCOUNTER CLASS LOCATION SOURCE 08/25/2025/08/25/20 [id number] [facility] 08/16/2025/08/16/20 [id number] Ambulatory Building:[facility] 07/21/2025/07/21/20 [id number] Ambulatory Building:[facility] 07/12/2025/07/12/20 [id number] Ambulatory Building:[facility] 06/11/2025/06/11/20 [id number] Ambulatory Building:[facility] 06/01/2025/06/01/20 [id number] Ambulatory Building:[facility] 05/14/2025/05/14/20 [id number] Ambulatory Building:[facility] 04/30/2025/04/30/20 [id number] BERNABE HUNT [facility] ding: SURGERY [facility] 04/08/2025/04/08/20 [id number] BERNABE HUNT [facility] ding: ECG/EEG [facility] 04/02/2025/04/02/20 [id number] BERNABE HUNT [facility] ding: PRE-SURGERY [facility] 04/01/2025/04/01/20 [id number] Ambulatory Building:[facility] 02/23/2025/02/24/20 [id number] Ambulatory Building:[address] 02/10/2025/02/11/20 25 [id number] Jordan Mcfarlane [facility] 02/10/2025/02/11/20 25 [id number] Ambulatory Building:[facility] 02/09/2025/02/10/20 25 [id number] Ambulatory Building:FNR MR [facility] 02/03/2025/02/04/20 25 [id number] Jordan Mcfarlane [facility] ng:[facility] 01/20/2025/01/20/20 25 [id number] Ambulatory Building:SWS ORTHO [facility] EPIC 01/20/2025/01/20/20 25 [id number] Ambulatory Building:SWS ORTHO [facility] EPIC 01/18/2025/01/18/20 25 [id number] [facility] 01/06/2025/01/06/20 25 [id number] Ambulatory Building:[address] Ambulatory 12/29/2024/12/29/19 25 [id number] Ambulatory Building:BSR NEURO [facility] EPIC 12/03/2024/12/03/19 25 [id number] Ambulatory Building:NOM SSWSIM [facility] EPIC 11/12/2024/11/12/20 24 [id number] Ambulatory Building:BSR NEURO [facility] EPIC 10/21/2024/10/21/20 24 [id number] Ambulatory Building:NOM SSWSIM [facility] EPIC 10/20/2024/10/20/20 24 [id number] Jazmine Benoit [facility] 10/12/2024/10/12/20 24 [id number] Ambulatory Building:BSR NEURO [facility] EPIC 09/15/2024/09/15/20 24 [id number] Ambulatory Building:BSR NEURO [facility] EPIC 09/08/2024/09/08/20 24 [id number] Ambulatory Building:NOM S SWSDERM [facility] EPIC 09/07/2024/09/07/20 24 [id number] Ambulatory Building:NOM SCIPT [facility] EPIC 09/04/2024/09/04/20 24 [id number] Ambulatory Building:NOM SCIPT [facility] EPIC 09/01/2024/09/01/20 24 [id number] Ambulatory Building:NOM SCIPT [facility] EPIC 08/15/2024/08/15/20 24 [id number] Siobhan Whitfield [facility] PAYERS ENCOUNTER GUARANTOR PAYER SUBSCRIBER SOURCE 08/25/[address] [address]Kth: () Primary Insurance:UMRPolicy Number: [id number] Date:3558-03-50QP[address] [address]CV: Codiradha ForresterB: [id number] [place], [place] [address]Tel: () [facility] 08/25/2025 Secondary Insurance:Medicare-IP Part A OnlyPolicy Number: [id number] Date:2025-07-22 Adela ForresterB: [id number] [address] [address]Mqt: () [facility] 08/25/2025 Tertiary Insuran ce:Self PayPolicy Number: Effective Date:2025-07-22 [facility] 08/16/2025 ADELA FORRESTERB: [address] [address]Qnm: () Primary Insurance:[facility]Policy Number: [id number] Date:2019-12-02 CODI LATISHAUTDOB: [id number] [place] [address] [facility] EPIC 07/21/2025 ADELA Spangler STOUTDOB: [address] [place] [address]Sfs: (HP) Primary Insurance:[facility] HEALTHCAREPolicy Number: [id number] Date:2019-12-02 CODI STOUTDOB: [id number] [address] [place] [address] [facility] EPIC 07/12/2025 ADELA Spangler STOUTDOB: [address] [place] [address]Jkg: (HP) Primary Insurance:[facility] HEALTHCAREPolicy Number: [id number] Date:2019-12-02 CODI LATISHAUTDOB: [id number] [address] [place] [address] [facility] EP[facility] 06/11/2025 ADELA GOODUTDOB: [address] [place] [address]Gnr: (HP) Primary Insurance:[facility] HEALTHCAREPolicy Number: [id number] Date:2019-12-02 CODI LATISHAUTDOB: [id number] [address] [place] [address] [facility] EP[facility] 06/01/2025 ADELA V STOUTDOB: [address] [place] [address]Ika: (HP) Primary Insurance:[facility] HEALTHCAREPolicy Number: [id number] Date:2019-12-02 CODI STOUTDOB: [id number] [address] [place] [address] [facility] EPIC 05/14/2025 ADELA Spangler STOUTDOB: [address] [place] [address]Tvu: (HP) Primary Insurance:[facility] HEALTHCAREPolicy Number: [id number] Date:2019-12-02 CODI LATISHAUTDOB: [id number] [address] [place] [address] [facility] 04/30/2025 ADELA HOPKINSDOB: [address] [address]Wpn: (HP) Primary Insurance:UMR WAUSAUPolicy Number: [id number] Date:8724-30-13Eefz Name:[employer] [address]ZJ: CODI STOUTDOB: 0876-95-67JKDSelect [facility] [place] 04/30/2025 Secondary Insurance:MEDICAREPolic y Number: [id number] Date:8956-10-67Jsat Name:MedicarePO [address] [address], [place] [address]HP: ADELA HOPKINSDOB: [id number] [address] [address]Nwn: (HP) () [facility] 04/08/2025 ADELA GARCIA [facility]ENTERBAPOLINARB: [id number] [address] [address]Jbx: (HP) Primary Insurance:UMR WAUSAUPolicy Number: [id number] Date:8185-85-13Qpkq Name:[employer] [address]IW: CODI STOUTDOB: 1873-20-79WVTSelect Medical Specialty [facility] [place] 04/02/2025 ADELA GARCIA [facility]ENTERBAPOLINARDOB: [id number] [address] [address]Tld: (HP) Primary Insurance:UMR WAUSAUPolicy Number: [id number] Date:6106-92-85Ojge Name:[employer] [address] [place] [address]JS: CODI LATISHAUTB: [id number] Medical Specialty [facility] [place] 04/02/2025 Secondary Insurance:MEDICAREPolic y Number: [id number] Date:0120-21-65Mbdq Name:[place] [address]RJ: ADELA SARGENTNICA STOUTDOB: [id number] [address] [address]Mti: (HP) () [facility] 04/01/2025 ADELA GOODUTDOB: [id number] [address] [address]Zuz: (HP) Primary Insurance:[facility]ITALPolicy Number: [id number] Date:2019-12-02 CODI USAMAB: [id number] [place] [address], [place] [address] [facility] 02/23/2025 ADELA FORRESTERB: [id number] [address] [address]Jzv: (HP) Primary Insurance:[facility] RESOURCESPolicy Number: [id number] Date:2019-12-02 CODI FORRESTERB: [id number] [place] [address]Ajr: (HP) [facility] 02/10/2025 Adela Spangler [address] [address]Lnu: (HP) Primary Insurance:UMRPolicy Number: [id number] Date:4650-72-96[address] [address] [address]CT: Codiradha ForresterB: [id number] [place] [address]Zal: (HP) [facility] 02/10/2025 Secondary Insurance:Medicare-IP Part A OnlyPolicy Number: [id number] Date:2025-02-10 Adela ForresterB: [id number] [address] [place] [address]Fbs: (HP) [facility] 02/10/2025 Tertiary Insuran ce:Self PayPolicy Number: Effective Date:2025-02-10 NOT GIVENUNK [facility] 02/10/2025 ADELA Spangler STOUTDOB: [address], [facility]Iil: (HP) Primary Insurance:[facility]ITALPolicy Number: [id number] Date:2019-12-02 CODI STOUTDOB: [id number] [place] [address], [place] [address] [facility] 02/09/2025 ADELA Spangler STOUTDOB: [id number] [address] [place] [address]Abb: (HP) Primary Insurance:[facility]ITALPolicy Number: [id number] Date:2019-12-02 CODI STOUTDOB: [id number] [place] [address], [place] [address] [facility] 02/03/2025 Adela Spangler [address] [place] [address]Xxw: (HP) Primary Insurance:RPolicy Number: [id number] Date:8101-45-49SP[address] [address]MJ: Codi A StoutDOB: [id number] [place] [address], [place] [address]Djt: (HP) [facility] 02/03/2025 Secondary Insurance:Medicare-IP Part A OnlyPolicy Number: [id number] Date:2025-01-19 Adela Spangler LatishautDOB: [id number] [place] [address], [place] [address]Blh: (HP) [facility] 02/03/2025 Tertiary Insuran ce:Self PayPolicy Number: Effective Date:2025-01-19 NOT GIVENUNK [facility] 01/20/2025 ADELAXAVIER HOPKINSDOB: [address] [address]Fbk: (HP) Primary Insurance:[facility] HEALTHCAREPolicy Number: [id number] Date:2019-12-02 CODI STOUTDOB: [id number] [address] [place] [address] [facility] 01/20/2025 ADELA GOODUTDOB: [address] [address]Umx: (HP) Primary Insurance:[facility]ALTHCAREPolicy Number: [id number] Date:2019-12-02 CODIRadha GOODUTDOB: [id number] [address] [place] [address] [facility] 01/18/2025 ADELA GOODUTDOB: [address] [address]Dog: (HP) Primary Insurance:[facility]ALTHCAREPolicy Number: [id number] Date:2019-12-02 CODI LATISHAUTDOB: [id number] [address] [place] [address] [facility] 01/06/2025 ADELA HOPKINSDOB: [address] [address]Qqf: (HP) Primary Insurance:[facility] RESOURCESPolicy Number: [id number] Date:2019-12-02 CODI PAPPAS: [id number] [address] [address]Qht: (HP) [facility] 12/29/2024 ADELA GOODUTDOB: [address] [address]Aqa: (HP) Primary Insurance:[facility]OS[facility]Policy Number: [id number] Date:2019-12-02 CODI STOUTDOB: [id number] [address] [place] [address] [facility] 12/03/2024 ADELA Spangler STOUTDOB: [address] [address]Jbz: (HP) Primary Insurance:[facility]ALTHCAREPolicy Number: [id number] Date:2019-12-02 CODI STOUTDOB: [id number] [address] [place] [address] [facility] 11/12/2024 ADELA Crys STOUTDOB: [address] [address]Fml: (HP) Primary Insurance:[facility]ITALPolicy Number: [id number] Date:2019-12-02 CODI STOUTDOB: [id number] [address] [place] [address] [facility] 10/21/2024 ADELA Crys STOUTDOB: [address] [address]Ykb: (HP) Primary Insurance:[facility]ITALPolicy Number: [id number] Date:2019-12-02 CODI STOUTDOB: [id number] [address] [place] [address] [facility] 10/20/2024 Adela Crys [id number] [place] [address]Uck: (HP) Primary Insurance:RPolicy Number: [id number] Date:4980-14-65BC[address] [address]PI: Codi Amy GoodutDOB: [id number] [address]Qtc: (HP) [facility] 10/20/2024 Secondary Insurance:Medicare-IP Part A OnlyPolicy Number: [id number] Date:2024-09-21 Adela Spangler UsamaB: [id number] [place] [phone]: (HP) [facility] 10/20/2024 Tertiary Insuran ce:Self PayPolicy Number: Effective Date:2024-09-30 NOT [facility]IVEN[facility] 10/12/2024 ADELA Spangler STOUTDOB: [address] [place] [address]Ovd: (HP) Primary Insurance:[facility] HEALTHCAREPolicy Number: [id number] Date:2019-12-02 CODI STOUTDOB: [id number] [address] [place] [address] [facility] 09/15/2024 ADELA Spangler LATISHAUTDOB: [place] [address]Tel: (HP) Primary Insurance:[facility]ALTHCAREPolicy Number: [id number] Date:2019-12-02 CODI STOUTDOB: [id number] [address] [place] [address] [facility] 09/08/2024 ADELA Spangler LATISHAUTDOB: [address] [address]Mdo: (HP) Primary Insurance:[facility]ALTHCAREPolicy Number: [id number] Date:2019-12-02 CODI STOUTDOB: [id number] [address] [place] [address] [facility] 09/07/2024 ADELA Spangler STOUTDOB: [address] [address]Dcf: (HP) Primary Insurance:UNITED HEALTHCAREPolicy Number: [id number] Date:2019-12-02 CODI STOUTDOB: [id number] [address] [place] [address] [facility] 09/04/2024 ADELA Crys STOUTDOB: [address] [address]Gif: (HP) Primary Insurance:[facility]Policy Number: [id number] Date:2019-12-02 CODI STOUTDOB: [id number] [address] [place] [address] [facility] 09/01/2024 ADELA Crys STOUTDOB: [address] [address]Buj: (HP) Primary Insurance:[facility]ALTHCAREPolicy Number: [id number] Date:2019-12-02 CODI LATISHAUTDOB: [id number] [address] [place] [address] [facility] 08/15/2024 Adela Crys [address]cs[address] [address]Iog: (HP) Primary Insurance:RPolicy Number: [id number] Date:3214-40-25AF[address] [address]ZG: Codiradha HopkinsDOB: [id number] [address] [address]Ntw: () [facility] 08/15/2024 Secondary Insurance:Medicare-IP Part A OnlyPolicy Number: [id number] Date:2024-08-11 Adela Crys GoodutDOB: [id number] [place] [address]Jgx: (HP) [facility] 08/15/2024 Tertiary Insuran ce:Self PayPolicy Number: Effective Date:2024-08-11 NOT [facility]EN[facility]
== END 2025-08-30 19:53 | disposition home or self-care (01) ==
PROVIDERS: PCP Nurse Practitioner Family; Visit Provider Nurse Practitioner Family
DX: G47.33 Obstructive sleep apnea (adult) (pediatric) (principal); F51.01 Primary insomnia
CPT/HCPCS: 95810

== ENCOUNTER 2025-09-22 20:51 | Outpatient (OUT) | payer OTHER, SELFPAY ==
--- OUTSIDE RECORDS SUMMARY | 2025-09-22 20:55 | XMS_ITS | CCD ---
Author Organization [facility] Care Team Providers Care Ritual Circumciser Name Role Phone NAKUL BARCENAS Unavailable Unavailable EBONI WU Unavailable Unavailable NAKUL BARCENAS Unavailable Unavailable NAKUL BARCENAS Unavailable Unavailable Unknown, Referring Provider Unavailable Unav ailable Unavailable Unavailable Robert Newell Unavailable Susan Monroe Unavailable Florina Calix Unavailable Keira Kwon Unavailable Subha Rueda Unavailable Unavailable Unavailable Liu Campbell Unavailable CHELE, DR BECKMAN Attending Unavailable DENNIS, DR JONES Primary Care Unavailable CHELE, DR BECKMAN Admitting Unavailable CHELE, DR BECKMAN Consulting Unavailable MISC, DR SOLIMAN Consulting Unavailable MISC, DR SOLIMAN Attending Unavailable DENNIS, DR JONES Primary Care Unavailable MISC, DR SOLIMAN Admitting Unavailable DENNIS, DR JONES Primary Care Unavailable POOJA, DR TENA Piper Admitting Unavailable POOJA, DR TENA Piper Consulting Unavailable POOJA, DR TENA Pipre Attending Unavailable ROBERTO, DR JAMES Lynn Admitting Unavailabl e ROBERTO, DR JAMES Lynn Consulting Unavailabl e ROBERTO, DR JAMES Lynn Attending Unavailabl e DENNIS, DR JONES Primary Care Unavailable DENNIS, DR JONES Consulting Unavailable DENNIS, DR JONES Attending Unavailable DENNIS, DR JONES Admitting Unavailable HILL, DR JONES Primary Care Unavailable HILL, DR JONES Consulting Unavailable HILL, DR JONES Attending Unavailable HILL, DR JONES Admitting Unavailable HILL, DR JONES Primary Care Unavailable HILL, DR JONES Consulting Unavailable DENNIS, DR JONES Attending Unavailable HILL, DR JONES Admitting Unavailable HILL, DR JONES Primary Care Unavailable MD Robert Newell Primary Care Provider CY Monroe Emergency Provider DO Rogelio Sanjay Emergency Provider Roberto, Dr. James Dominique Attending Costa Newell, Dr. Robert Prather Primary Care Unavailab brayden Mejia, Dr. James Dominique Referring Costa Newell, Dr. Robert Prather Primary Care Unavailab Melanie Pa Referring Unavailable Melanie Tracy Attending Unavailable MD Robert Newell Primary Care Provider DeaconpinaCY Emergency Provider Robert Newell MD Primary Care Provider MD Robert Newell Primary Care Provider DO Redd Salazar Emergency Provider MD Fartun Tran Admit Provider MD Fartun Tran Attending Provider [phone] MD Manish Greenberg Other Provider [phone] MD Siobhan Whitfield Attending Provider DO Richard Mohan Emergency Provider Robert Rivas MD Primary Care Provider Bill DPM, David A Unavailable Robert Newell MD Primary Care Provider Redd Salazar DO Emergency Provider Fartun Tran MD Admit Provider Manish Greenberg MD Other Provider Siobhan Whitfield MD Attending Provider Richard Mohan DO Emergency Provider UnavaJazmine Rothman DO Attending Provider [phone] Jazmine Benoit DO Unavailable Robert Newell MD Primary Care Provider Denys GALAN, Jordan Lynn Attending Provider Robert Newell MD Primary Care Provider ROBERTO, JAMES S Referring Unavailable DENNIS ROBERT PRATHER Primary Care Unavailable MELANIE TRACY Attending Unavailable JAMES MEJIA S Referring Unavailable DENNIS, ROBERT PRATHER Primary Care Unavailable JAMES MEJIA S Attending Unavailable MELANIE TRACY Referring Unavailable WORCESTER, ROBERT PRATHER Primary Care Unavailable [place], Robert Piper Primary Care Unavailable BERNABE HUNT Attending Unavailable BERNABE HUNT Admitting Unavailable Dennis, Veronique Primary Care Unavailable BERNABE HUNT Attending Unavailable BERNABE HUNT Admitting Unavailable BERNABE HUNT Admitting Unavailable Dennis, Veronique Primary Care Unavailable BERNABE HUNT Attending Unavailable Amadou Benoit DOer Unavailable [phone] Cy FISHER Christbenedictoer Unavailable [phone] VIBHA CLEMENT Attending Unavailable ROBERT NEWELL Attending Unavailable DENNIS, Veronique Referring Unavailable JR. ALLAN, BERNABE Sumner Attending Unavaila ble ROBERT NEWELL Referring Unavailable STEPJR. ARSENIO, BERNABE Sumner Referring Unavaila ble STEPJR. ARSENIO, BERNABE Sumner Referring Unavaila ble STEPJR. ARSENIO, BERNABE Sumner Attending Unavaila ble RISALIMAGGIE ALLISON Attending Unavailable RICHARD CAMAREAN Attending Unavailable CAMARENA, RICHARD Gayle Attending Unavailable ISIDRO, RICHARD Gayle Attending Unavailable ISIDRO, RICHARD Gayle Attending Unavailable CAMARENA, RICHARD Gayle Attending Unavailable EVON VELA Attending Unavailable JAZMINE BENOIT Referring Unavailable EVON VELA Attending Unavailable JAZMINE BENOIT Referring Unavailable VIMAL BAEZA Attending Unavailable JAZMINE BENOIT Referring Unavailable CHIRAG BA Attending Unavailable MAGGIE WALTER Referring Unavailable JAZMINE BENOIT Attending Unavailable VIBHA CLEMENT Attending Unavailable JAIMEE ENRIQUE Attending Unavailable VIBHA CLEMENT Attending Unavailable ROBERT NEWELL Referring Unavailable BRENDA BEGUM Attending Unavailable Dennis GALAN, Primary Care Provider [phone] Liu Campbell MD Attending Provider [phone] Liu Campbell MD Other Provider Jordan Salazar Admitting Unavailable Jordan Salazar Attending Unavailable Robert Newell [facility] Care Unavailable Jazmine Benoit Admitting Unavailab Jazmine Johnston Attending Unavailab le [place] Primary Care Unavailable Jordan Salazar S Admitting Unavailable Jordan Salazar Attending Unavailable Robert Newell Primary Care Unavailable Liu Campbell Admitting Unavailable Liu Campbell Attending Unavailable Robert Newell Primary Care Unavailable Allergies Allergy ClassificationReported Allergen(s)Allergy TypeDate of OnsetReaction(s) Facility (1 source)metoclopramide; Translations: [METOCLOPRAMIDE HCL]Drug Allergy 00-88-6674VDJSjcbgqqajMemorial [facility] Rep[facility] (20 sources)Penicillins; Translations: [PENICILLINS]Propensity to adverse reactions to drug (disorder)72-28-5906NmgeAhycqkwqjMet[facility] (18 sources)Codeine; Translations: [codeine]Drug AllergyVomitErica Ville [address] DO Work Phone: (20 sources)Lisinopril; Translations: [lisinopril]Drug Ciwzsoo72-41-0804DieorSt. Mary's Medical Center (20 sources)Metoclopramide; Translations: [Reglan TABS]Drug Pzfzthx59-89-8875 [place] [address] DO Work Phone: (10 sources)Morphine; Translations: [morphine]Drug AllergyAnaphylaxiTammy Ville [address] DO Work Phone: (8 sources)Morphine Derivatives; Translations: [Morphine Derivatives]Allergy to drug (finding)[facility] Work Phone: (16 sources)AmoxicillinDrug Iagrsdz94-17-1986qxovEwhinlgabMercy Health [facility] Hospital (5 sources)Esomeprazole / NaproxenDrug AllergyhomNorth [facility] Hospital Only [place] Other (16 sources)Penicillin GDrug Peqxlux23-98-1993mqhsQbctunfzmMercy Health [facility] Hospital (20 sources)traMADol; Translations: [tramadol]Drug Ecrvtar21-91-0173PhosjuoGLRobert Ville [address] DO Work Phone: (2 sources)cefdinir; Translations: [cefdinir]Drug Ufzprmg13-15-8027SdhSamaritan Hospital Repository (2 sources)Iothalamate; Translations: [Reglan]Drug AllergyThe [facility] (2 sources)Penicillin; Translations: [penicillin]Drug AllergyThe [facility] (20 sources)Esomeprazole; Translations: [esomeprazole]Drug Sjqirzd28-37-6511 HivesFort Hamilton HospitalComment on above:homicidal (16 sources)Metoclopramide; Translations: [METOCLOPRAMIDE]Drug Jfomqvg10-05-2390 Hives, Hives, vomitting/rashFort Hamilton Hospital (14 sources)Naproxen; Translations: [naproxen]Drug Btrpjle08-98-0740Wudzy, Hives, homicidalFort Hamilton Hospital (20 sources)Ticagrelor; Translations: [ticagrelor]Drug Jxuluxk53-03-3379 Shortness of breathFort Hamilton Hospital (20 sources)cefdinirDrug Ylerwwl37-38-2399VHQJ [facility] (1 source)AmoxicillinDrug Yqywjsy86-15-8675QbcxbgsmtFort Hamilton Hospital Repository (1 source)PenicillinDrug Exueakk63-21-7909KaamwddpzFort Hamilton Hospital Repository Medications Current Medications MedicationDrug Class(es)DatesSig (Normalized)Sig (Original)acetaminophen 325 mg / HYDROcodone bitartrate 5 mg oral tablet (20 sources)Opioid AgonistStart: 05-14-2025 End: 52-10-8514mkdv 1 tablet by mouth every six hours for painHYDROcodone- acetaminophen ([place]) 5-325 MG tablet Indications: S/P arthroscopy of left shoulder Take 1 tablet by mouth every 6 (six) hours if needed for severe pain for up to 5 days 20 tablet 05/14/2025 05/19/2025 ActiveStart: 01-25-2020 End: 62-89-3727zpcr 1 tablet by mouth every four to six hours as needed for pain Hydrocodone-Acetaminophen ([place]) 5-325 mg tablet Discontinued 1 TAB PO EVERY 4- 6 HOURS as needed for pain 7 January 25, 2020 October 01, 2020 6:29pm Start: 02-03-2018 End: 29-27-5345gfxc 1 tablet by mouth every six hours as needed for pain Hydrocodone-Acetaminophen ([place]) 5-325 mg tablet Discontinued 1 TAB PO Q6H as needed for pain February 03, 2018 December 27, 2018 7:23pmStart: 10-18-2017 End: 28-39-5822qgwm 1 tablet by mouth every four to six hours as needed for pain Hydrocodone-Acetaminophen ([place]) 5-325 mg tablet Discontinued 1 - 2 TAB PO EVERY 4-6 HOURS as needed for pain October 18, 2017 1:00am February 03, 2018 5:34pmacetaminophen 325 mg / oxyCODONE hydrochloride 5 mg oral tablet (14 sources)Opioid AgonistStart: 04-30-2025 End: 07-01-2647kwsp 1 tablet by mouth every six hours for painoxyCODONE- acetaminophen (Percocet) 5-325 MG tablet Indications: Internal derangement of left shoulder , Post-operative pain Take 1 tablet by mouth every 6 (six) hours if needed for moderate pain for up to 5 days 20 tablet 04/30/2025 05/05/2025 ActiveStart: 10-01-2020 End: 58-67-9261junl 1 tablet by mouth every six hours as needed for pain Oxycodone-Acetaminophen 5-325 mg tablet Discontinued 1 TAB PO Q6H as needed for pain 09 03October 01, 2020 December 21, 2020 1:29pm{1 (ascorbic acid 7540 MG / polyethylene glycol 3350 46422 MG / potassium chloride 1200 MG / sodium ascorbate 34983 MG / sodium chloride 3200 MG Powder for Oral Solution) / 1 (polyethylene glycol 3350 109360 MG / potassium chloride 1000 MG / sodium chloride 2000 MG / sodium sulfate 9000 MG Powder for Oral Solution) } Pack [Plenvu] (1 source)Osmotic Laxative, Vitamin CStart: 96-80-7589Ljpgbj 140 GM dose 1 pouch at 4pm, dose 2 pouch A & B at 11pm Orally twice a day for 1 days BIN:[id number] PCN: [id number] GROUP:[id number] ID:[id number] Jun, Activeaspirin 81 mg delayed release oral tablet (20 sources)Platelet Aggregation Inhibitor, Nonsteroidal Anti-inflammatory Drug Start: 04-02-2025 End: 81-50-9992fkijedb 81 MG EC tablet 81 mg 04/02/2025 07/21/2025 Discontinued (Therapy completed)Start: 04-07-2021 End: 94-18-3633hvdd 1 tablet by mouth once dailyAspirin (Children's Aspirin) 81 mg Tablet,Chewable Discontinued 81 MG PO Daily April 07, 2021 12:00am August 10, 2024 1:23pmAspirin 81 MG TABS TAKE 1 TABLET DAILY. Quantity: 0 Refills: 0 Ordered: 20-Sep-2021 DO Activeatorvastatin 80 mg oral tablet (20 sources)HMG-CoA Reductase InhibitorStart: 04-10-2021 End: 11-25-4066dicl 1 tablet by mouth once dailyatorvastatin (Lipitor) 80 MG tablet Indications: Pure hypercholesterolemia TAKE 1 TABLET BY MOUTH DAILY 90 tablet 3 03/15/2025 07/21/2025 Discontinued (Therapy completed)Start: 04-07-2021 End: 97-45-5659jzru 1 tablet by mouth once daily in the eveningAtorvastatin 80 mg Tablet Discontinued 80 MG PO Every evening April 07, 2021 12:00am April 07, 2021 6:32pmtake 1 tablet by mouth at bedtimeatorvastatin (Lipitor) 40 MG tablet Take 40 mg by mouth at bedtime Activetake 1 tablet by mouth once daily Atorvastatin Calcium - 1 tablet Orally Once a day Activebenzonatate 100 mg oral capsule (20 sources)Non-narcotic AntitussiveStart: 32-22-9799bsay 1 capsule by mouth three times daily as needed for coughbenzonatate (Tessalon) 100 MG capsule Indications: Upper respiratory tract infection, unspecified type TAKE 1 CAPSULE BY MOUTH THREE TIMES A DAY NEEDED FOR COUGH (DO NOT CRUSH OR CHEW) 42 capsule 05/12/2025 ActiveStart: 01-16-2024 End: 86-50-5455nizu 1 capsule by mouth three times daily as needed for cough Benzonatate 100 mg capsule Discontinued 100 MG PO Three times daily as needed for cough August 11, 2024 1:13pm January 19, 2025 12:00pmcarvedilol 3.125 mg oral tablet (20 sources)alpha-Adrenergic Yady, beta-Adrenergic BlockerStart: 08-18-2024 take 1 tablet by mouth twice daily at mealtimecarvedilol (Coreg) 3.125 mg tablet Indications: Primary hypertension TAKE 1 TABLET BY MOUTH TWICE ADAY WITH A MEAL 180 tablet 3 08/18/2024 ActiveStart: 00-84-5169nuno 1 tablet by mouth twice daily at mealtimecarvedilol (Coreg) 3.125 mg tablet Take 1 tablet (3.125 mg) by mouth 2 times a day with meals. 0 11/14/2021 ActiveStart: 26-48-0010ynxk 1 tablet by mouth twice daily at mealtimeCarvedilol 6.25 mg Tablet Active 6.25 MG PO Twice daily with meals 60 30 April 07, 2021 12:00am Complies with drug therapy take 1 tablet by mouth every twelve hourscarvedilol (Coreg) 3.125 MG tablet Take 3.125 mg by mouth every 12 (twelve) hours Activetake 1 tablet by mouth twice daily at mealtimeCarvedilol 3.125 MG Oral Tablet TAKE 1 TABLET TWICE DAILY WITH MEALS. Quantity: 60 Refills: 0 Ordered: 11-Oct-2021 Melanie Varghese Active reduced doseciprofloxacin 500 mg oral tablet (2 sources)Quinolone AntimicrobialStart: 10-21-2024 End: 66-76-3618btns 1 tablet by mouth once dailyciprofloxacin (Cipro) 500 MG tablet Indications: Acute cystitis with hematuria Take 1 tablet (500 mg) by mouth Daily for 5 days 5 tablet 10/21/2024 10/26/2024 Activecitalopram 40 mg oral tablet (20 sources)Serotonin Reuptake InhibitorStart: 37-03-0771jxdh 1 tablet by mouth once dailycitalopram (CeleXA) 40 MG tablet Indications: Moderate major depression (HCC) Take 1 tablet (40 mg)by mouth Daily 90 tablet 3 07/05/2025 ActiveStart: 07-06-2024 End: 00-28-5379ccrn 1 tablet by mouth once dailycitalopram (CeleXA) 40 MG tablet Indications: Moderate major depression (HCC) Take 1 tablet (40 mg)by mouth Daily 90 tablet 3 10/21/2024 ActiveStart: 49-80-0216maeg 1 tablet by mouth once dailyCitalopram (Celexa) 20 mg Tablet Active 20 MG PO Daily October 01, 2020 12:00am Complies with drug therapyStart: 10-18-2017 End: 14-85-2787polp 1 tablet by mouth once dailyCitalopram 40 mg tablet Discontinued 40 MG PO Daily October 18, 2017 1:00am October 01, 2020 6:28pm clopidogrel 75 mg oral tablet (20 sources)P2Y12 Platelet InhibitorStart: 08-21-2021 End: 99-34-0175ohar 1 tablet by mouth once dailyclopidogrel (Plavix) 75 MG tablet Indications: Coronary artery disease involving [place] coronary artery of [place] heart without angina pectoris Take 1 tablet (75 mg) by mouth Daily 90 tablet 3 10/21/2024 Activediclofenac sodium 0.03 mg/mg topical gel (20 sources)Nonsteroidal Anti-inflammatory Drugdiclofenac sodium 3 % gel Active diclofenac sodium 3 % gel apply 2 grams Externally Four times a day prn Active doxycycline hyclate 100 mg oral capsule (20 sources)Tetracycline-class DrugStart: 08-18-2024 End: 49-63-1608pcrroeapybv (Vibramycin) 100 MG capsule Indications: Acute non- recurrent frontal sinusitis Take 1 capsule (100 mg) by mouth in the morning and 1 capsule (100 mg) before bedtime. Do all this for 7 days. Take with at least 8 ounces (large glass) of water, do not lie down for 30 minutes after. 14 capsule 08/18/2024 08/25/2024 ActiveStart: 52-09-0912vejm 1 capsule by mouth every twelve hoursDoxycycline Monohydrate 100 MG 1 capsule Orally every 12 hrs for 10 days May, ActiveStart: 10-01-2020 End: 43-80-0457zelc 1 capsule by mouth twice dailyDoxycycline Hyclate 100 mg capsule Discontinued 100 MG PO Twice daily 20 09October 01, 2020 12:00am December 21, 2020 1:29pmDoxycycline Hyclate CAPS as directed Quantity: 0 Refills: 0 Ordered: 06-Jun-2022 DO Activegabapentin 300 mg oral capsule (20 sources)Anti-epileptic AgentStart: 03-23-2025 End: 82-67-0577wglz 2 capsules by mouth once daily in the morning, then take 2 capsules by mouth once daily at bedtimegabapentin (Neurontin) 300 MG capsule Indications: Lumbar radiculopathy TAKE 2 CAPSULES BY MOUTH EVERY MORNING AND TAKE TWO CAPSULES BY MOUTH EVERY NIGHT AT BEDTIME 360 capsule 3 03/23/2025 07/21/2025 Discontinued (Therapy completed)Start: 48-94-4834vxom 1 capsule by mouth twice dailyGabapentin 300 mg capsule Active 300 MG PO Twice daily August 10, 2024 12:00am Complies with drug therapyStart: 58-63-3335zici 2 capsules by mouth once daily in the morning, then take 2 capsules by mouth once daily at bedtimegabapentin (Neurontin) 300 MG capsule Indications: Lumbar radiculopathy TAKE 2 CAPSULES BY MOUTH EVERY MORNING AND TAKE TWO CAPSULES BY MOUTH EVERY NIGHT AT BEDTIME 360 capsule 3 12/26/2023 ActiveStart: 10-01-2020 End: 27-69-3550vgfv 1 capsule by mouth once dailyGabapentin 100 mg Capsule Discontinued 100 MG PO Daily October 01, 2020 12:00am April 07, 2021 6:34pm Start: 10-18-2017 End: 48-03-5356qjuo 1 tablet by mouth three times dailyGabapentin 600 mg tablet Discontinued 600 MG PO Three times daily October 18, 2017 1:00am October 01, 2020 6:28pmIsosorbide Dinitrate (5 sources)Nitrate VasodilatorIsosorbide Dinitrate Mvgeyb358 actuat levalbuterol 0.045 mg/actuat metered dose inhaler (20 sources)beta2-Adrenergic AgonistStart: 01-19-2025 End: 14-07-4097egig 2 puff(s) by inhalation every six hours for wheezing levalbuterol (Xopenex HFA) 45 MCG/ACT inhaler Indications: Mild persistent asthmatic bronchitis without complication (HCC) , Mild intermittent asthma with acute exacerbation (HCC) Inhale 2 puffs every 6 (six) hours if needed for wheezing 15 g 2 01/19/2025 01/19/2026 Activelevothyroxine sodium 0.1 mg oral tablet (20 sources)l-ThyroxineStart: 58-43-5282dnje 1 capsule by mouth once daily Levothyroxine 100 mcg capsule Active 100 MCG PO Daily February 03, 2025 1:00am Complies with drug therapyStart: 01-19-2025 End: 09-21-5790hbzx 1 tablet by mouth once dailylevothyroxine (Synthroid, Levoxyl) 100 MCG tablet Indications: Acquired hypothyroidism Take 1 tablet (100 mcg) by mouth Daily 90 tablet 3 03/01/2025 03/01/2026 ActiveStart: 04-28-2024 End: 79-98-0319xlrc 1 tablet by mouth in the morninglevothyroxine (Synthroid, Levoxyl) 112 MCG tablet Indications: Acquired hypothyroidism (CMS/HCC) Take 1 tablet (112 mcg) by mouth in the morning. 90 tablet 3 10/21/2024 01/19/2025 Discontinued (Dose adjustment)Start: 10-01-2020 End: 98-10-3537plaz 1 capsule by mouth once dailyLevothyroxine 75 mcg Capsule Discontinued 75 MCG PO Daily October 01, 2020 12:00am February 03, 2025 9:24am Start: 05-61-0696tort 1 tablet by mouth once daily in the morningLevothyroxine Sodium 100 MCG 1 tablet on an empty stomach in the morning Orally Once a day for 90 day(s) Jul, ActiveStart: 10-18-2017 End: 70-87-5355benj 1 tablet by mouth once dailyLevothyroxine 125 mcg tablet Discontinued 125 MCG PO Daily October 18, 2017 1:00am September 6:28pmtake 1 tablet by mouth once dailyLevothyroxine Sodium 75 MCG Oral Tablet TAKE 1 TABLET DAILY. Quantity: 0 Refills: 0 Ordered: 20-Sep-2021 DO Active meclizine hydrochloride 12.5 mg oral tablet (20 sources)AntiemeticStart: 91-74-5711ejnh 1 tablet by mouth every six hours Meclizine HCl 12.5 MG 1 tablet as needed Orally every 6 hours for 10 day(s) prn Aug, Activemeclizine (Antivert) 25 MG tablet Take 25 mg by mouth as needed in the morning and 25 mg as needed at noon and 25 mg as needed in the evening for dizziness. Activemethocarbamol 750 mg oral tablet (6 sources)Muscle RelaxantStart: 07-02-2024 End: 51-15-3827eufswcrjivxjf (Robaxin) 750 MG tablet Indications: Chronic right- sided thoracic back pain Take 1 tablet (750 mg) by mouth as needed at bedtime for muscle spasms for up to 7 days 7 tablet 07/02/2024 08/05/2024 Discontinued methylPREDNISolone (18 sources)CorticosteroidStart: 06-01-2025 End: 65-80-5560tgmsozLMAARZRxvsjx (Medrol Dospak) 4 MG tablets Indications: Acute left-sided low back pain with bilateral sciatica Take as directed on package. 21 tablet 06/01/2025 07/21/2025 Discontinued (Therapy completed)Start: 27-42-5314djfhbkHVGQJURzqelq (Medrol Dospak) 4 MG tablets Indications: Acute left-sided low back pain with bilateral sciatica Take as directed on package. 21 tablet 06/01/2025 ActiveStart: 07-02-2024 End: 74-06-5977fsmnmuLQQFSHRsptcp (Medrol Dospak) 4 MG tablets Indications: Chronic right-sided thoracic back painTake as directed on package. 21 tablet 07/02/2024 08/05/2024 DiscontinuedStart: 12-22-6820csfaovFBAKCZCsbvks (Medrol Dospak) 4 MG tablets Indications: Chronic right-sided thoracic back painTake as directed on package. 21 tablet 07/02/2024 ActiveStart: 05-28-2022 methylPREDNISolone 4 MG as directed Orally for daily dose take half with breakfast, half with dinner for 6 days May, Activenitrofurantoin, macrocrystals 25 mg / nitrofurantoin, monohydrate 75 mg oral capsule (16 sources)Nitrofuran AntibacterialStart: 01-19-2025 End: 35-82-0348zlch 1 capsule by mouth in the morningnitrofurantoin, macrocrystal-monohydrate, (Macrobid) 100 MG capsule Indications: Dysuria Take 1 capsule (100 mg) by mouth in the morning and 1 capsule (100 mg) before bedtime. Do all this for 3 days.6 capsule 01/19/2025 01/22/2025 ActiveStart: 06-22-2020 End: 18-65-3541vzso 1 capsule by mouth twice daily at mealtimeNitrofurantoin Monohyd/M-Cryst (Macrobid) 100 mg capsule Discontinued 100 MG PO Twice daily 10 June 22, 2020 12:00am October 01, 2020 6:29pm must administer with a meal/foodnitroglycerin 0.4 mg sublingual tablet (20 sources)Nitrate VasodilatorStart: 04-07-2021 End: 47-04-1806jhhyihajwllhr (Nitrostat) 0.4 MG SL tablet Indications: Coronary artery disease involving [place] coronary artery of [place] heart without angina pectoris Place 1 tablet (0.4 mg) under the tongue every5 (five) minutes if needed for chest pain 90 tablet 3 06/01/2025 Activenitroglycerin (Nitrostat) 0.4 MG SL tablet as directed Sublingual Activenystatin 926402 unt/ml topical cream (10 sources)Polyene AntifungalStart: 40-96-8159Zdzdcqwk 584858 UNIT/GM 1 application to abdominal pannus and under the right breast Externally prnfor 10 day(s) PRN Jul, ActiveStart: 89-72-7254Oretekhb 091367 UNIT/GM 1 application Externally prn for 10 day(s) Jul, Activeondansetron 4 mg disintegrating oral tablet (20 sources)Serotonin-3 Receptor AntagonistStart: 04-11-2021 End: 18-50-8855brdr 1 tablet by mouth every eight hours as needed for nausea and vomitingOndansetron 4 mg tablet,disintegrating Active 4 MG PO Every 8 hours as needed for nausea and vomiting 9 3 January 16, 2024 1:00am Complies with drug therapypantoprazole 40 mg delayed release oral tablet (20 sources)Proton Pump InhibitorStart: 71-12-7067jlzddndnbgnr (Protonix) 40 MG EC tablet 40 mg 04/02/2025 ActiveStart: 28-89-9368Idfvrgztzsyf (Protonix) 20 mg tablet,delayed release (DR/EC) Active 40 MG PO As Directed as needed for Acid Reflux August 21, 2021 10:42am Complies with drug therapyStart: 04-11-2021 End: 02-95-3140bosa 1 tablet by mouth once dailyPantoprazole (Protonix) 20 mg Tablet,Delayed Release (Dr/Ec) Discontinued 20 MG PO Daily April 11, 2021 12:00am August 21, 2021 10:43amStart: 10-27-2017 End: 58-72-1806iyhl 40 mg by mouth once dailyPantoprazole (Protonix) [address] for susp in packet Discontinued 40 MG PO Daily October 27, 2017 1:00am February 03, 2018 5:34pm x 1 monthtake 1 tablet by mouth every twelve hoursPantoprazole Sodium 40 MG 1 tablet Orally twice a day for 90 day(s) prn ActivepredniSONE 50 mg oral tablet (20 sources)Start: 12-03-2024 End: 93-88-4832qwzf 1 tablet by mouth once dailypredniSONE (Deltasone) 50 MG tablet Indications: Mild intermittent asthma with acute exacerbation (CMS/HCC) Take 1 tablet (50 mg) by mouth Daily for 5 days 5 tablet 12/03/2024 12/08/2024 ActiveStart: 00-02-9385hesf 1 tablet by mouth every twelve hourspredniSONE 20 MG 1 tablet Orally bid for 5 day(s) Sep, Not-TakingStart: 01-25-2020 End: 89-39-2959wzzx 1 tablet by mouth once dailyPrednisone 50 mg tablet Discontinued 50 MG PO Daily 5 January 25, 2020 1:00am October 01, 2020 6:29pmStart: 02-03-2018 End: 32-66-8130nvob 3 tablets by mouth once daily at mealtimePrednisone 20 mg tablet Discontinued 60 MG PO Daily February 03, 2018 1:00am December 27, 2018 7:23pm administer with food or milkStart: 02-03-2018 End: 80-47-9959vkfl 60 mg by mouth once daily at mealtimePrednisone Discontinued 60 MG PO Daily February 03, 2018 1:00am December 27, 2018 7:23pm administer with food or milkStart: 10-27-2017 End: 31-82-3701nsbn 2 tablets by mouth once dailyPrednisone 20 mg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 940169-26-5142QzavnlfBeowd nutritional; endocrine; and metabolic disorders (8 sources)Severe obesity; Translations: [Class 2 severe obesity due to excess calories with serious comorbidity and body mass index (BMI) of 39.0 to 39.9 in adult ([facility])]80-04-9443PsxdkvlVcjtu nutritional; endocrine; and metabolic disorders (2 sources)Body mass index (BMI) 39.0-39.9, adult; Translations: [Body mass index (BMI) 39.0-39.9, adult]Onset: 64-41-1339RchobqdFsgsq nutritional; endocrine; and metabolic disorders (2 sources)Body mass index (BMI) 40.0-44.9, adult; Translations: [Body mass index (BMI) 40.0-44.9, adult (Multi)]Onset: 25-61-7043KofrdcuNhsvp skin disorders (2 sources)Inflamed seborrheic keratosis; Translations: [Inflamed seborrheic keratosis]96-08-5774GbydbpchAqyzm skin disorders (2 sources)Skin tag; Translations: [Other hypertrophic disorders of the skin] 23-34-7036CshhgnbnVwxza upper respiratory disease (5 sources)Allergic rhinitis; Translations: [Allergic rhinitis, unspecified] ChronicOther upper respiratory infections (20 sources)Chronic pansinusitis; Translations: [Chronic pansinusitis]Onset: 312160-47-3262NbtyflfUvtnb upper respiratory infections (4 sources)Acute frontal sinusitis; Translations: [Acute frontal sinusitis, unspecified]83-52-6448WgkkositTxlk-; endo-; and myocarditis; cardiomyopathy (except that caused by tuberculosis or sexually transmitted disease) (7 sources)Cardiomyopathy; Translations: [Other primary cardiomyopathies]Chronic Pneumonia (except that caused by tuberculosis or sexually transmitted disease) (13 sources)Pneumonia; Translations: [Pneumonia, unspecified organism]10-25-2017 EpisodicResidual codes; unclassified (5 sources)H/O Spinal surgery; Translations: [Other specified postprocedural states]EpisodicResidual codes; unclassified (20 sources)History of arthroscopic procedure on shoulder; Translations: [Other specified postprocedural states]17-26-0730LxpijeknLiowxknlj and history of mental health and substance abuse codes (20 sources)Ex-smoker; Translations: [Personal history of tobacco use]Onset: 119973-72-9354OygerkcgMxpetke on above:Quit 2000;Septicemia (except in labor) (13 sources)Sepsis; Translations: [Sepsis, unspecified organism]10-25-2017 EpisodicSpondylosis; intervertebral disc disorders; other back problems (20 sources)Lumbar spondylosis; Translations: [Spondylosis without myelopathy or radiculopathy, lumbar region]08-90-0017RlbtnjvKpqlcxaedhp injury; contusion (20 sources)Contusion of foot; Translations: [Contusion of unspecified foot, initial encounter]13-62-8266TupvalvyQzpagjg (15 sources)Vasovagal syncope; Translations: [Syncope and collapse]08-10-2024 EpisodicThyroid disorders (20 sources)Acquired hypothyroidism; Translations: [Hypothyroidism, unspecified] Onset: 37-68-3561ZlmpaebUrnhpuvfjxcd (7 sources)Other specified abnormal findings of blood chemistry; Translations: [Encounter for screening for malignant neoplasm of colon]Onset: 06-07-2017 Resolved: 11-78-2716RabeiangCowrchwqcbqe (2 sources)COUGH, UNSPECIFIED; Translations: [COUGH, UNSPECIFIED]Onset: 25-49-5686Mavdpyrtoupv (4 sources)Chronic pain of left upper jirt21-61-3141Dtckakunjlff (1 source)Other intervertebral disc degeneration, lumbar region with discogenic back pain and lower extremitypain; Translations: [Other intervertebral disc degeneration, lumbar region with discogenic back pain and lower extremity pain] Onset: 08-16-3334Cvsafjr tract infections (15 sources)Acute urinary tract infection; Translations: [Urinary tract infection, site not specified]59-20-9878FxdaloqoBuybl infection (20 sources)Viral disease; Translations: [Viral infection, unspecified] 78-55-8240YhfjnxgvRqulz infection (1 source)COVID-19; Translations: [COVID-19]Onset: 07-09-2022 Past or Other Problems Problem ClassificationProblemDateDocumented DateEpisodic/ChronicAllergic reactions (1 source)Allergic contact dermatitis due to plants, except food; Translations: [Poison ender L23.7]Onset: 09-15-2021 Resolved: 32-97-7894PnkymaukLnzukzityu and other anemia (20 sources)Anemia; Translations: [Anemia, unspecified]Onset: 06-19-2023 63-35-2768BeemiueoAbyfhivjbhmea symptoms and ill-defined conditions (20 sources)Microscopic hematuria; Translations: [Other microscopic hematuria] Onset: 751503-24-4448TxriouqoKmmmjfbbeetpi and screening for infectious disease (2 sources)Encounter for screening for respiratory tuberculosis; Translations: [Contact with and (suspected) exposure to other viral communicable diseases] Onset: 06-07-2017 Resolved: 29-00-8181XpaqynyvYsnodfy and fatigue (10 sources)Fatigue; Translations: [Other fatigue]Onset: EpisodicNutritional deficiencies (1 source)Deficiency of other specified B group vitamins; Translations: [Deficiency of other specified B group vitamins]Onset: 76-53-6171KjoegihpNucjb aftercare (1 source)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; Translations: [USP CURRENT USE OF ASPIRIN]Onset: 21-68-2088HteeiuhtQmjnk aftercare (1 source)Other prison (current) drug therapy; Translations: [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]Onset: 17-12-0986IriquyyjRgung circulatory disease (16 sources)H/O: angina pectoris; Translations: [Personal history of other diseases of circulatory system] Resolved: 49-54-9775OljqbiesLmshu connective tissue disease (2 sources)Pain in right hand; Translations: [Pain in left hand]Onset: 79-82-0934MbeyhyhpDjdtz connective tissue disease (2 sources)Other symptoms and signs involving the musculoskeletal system; Translations: [Other musculoskeletalsymptoms referable to limbs]08-05-2024 EpisodicOther hematologic conditions (1 source)Elevated erythrocyte sedimentation rate; Translations: [Elevated erythrocyte sedimentation rate]Onset: 71-69-9499KwinybkzPzyat lower respiratory disease (20 sources)Difficulty breathing; Translations: [Other respiratory abnormalities]Onset: 401292-13-9249XkzdbksxTmhok lower respiratory disease (4 sources)Shortness of breath; Translations: [SHORTNESS OF BREATH]Onset: 68-31-9532VksdgapnKohzq nervous system disorders (20 sources)Pain in limb; Translations: [Paresthesia of skin]Onset: 07-11-2024 60-95-6818BplpgmbvWsgtw non-traumatic joint disorders (2 sources)Pain in right knee; Translations: [Pain in left knee]Onset: 10-24-6670LjxfkhssDxduk nutritional; endocrine; and metabolic disorders (2 sources)Body mass index 40+ - severely obese; Translations: [Body mass index (BMI) 40.0-44.9, adult]Onset: 07-08-2024 Resolved: 584137-46-7031BakkokcBbdxv nutritional; endocrine; and metabolic disorders (1 source)Hyperuricemia without signs of inflammatory arthritis and tophaceous disease; Translations: [Hyperuricemia without signs of inflammatory arthritis and tophaceous disease]Onset: 45-40-3424QubjhpmwVvfim skin disorders (1 source)Rash and other nonspecific skin eruptionOnset: 05-28-2022 Resolved: 93-07-1219NssvapqhNuvyr skin disorders (2 sources)Change in skin lesion; Translations: [Disorder of the skin and subcutaneous tissue, unspecified]41-59-6337NjrrazkvPjdali media and related conditions (1 source)Otitis media, unspecified, bilateral; Translations: [Bilateral acute otitis media H66.93]Onset: 09-28-2021 Resolved: 58-43-1783PqqtikgcRpinuqxr codes; unclassified (20 sources)Hypersomnia; Translations: [Hypersomnia, unspecified]Onset: 12-18-2023 Resolved: 694752-66-9970UucsmpxDzfaqqfz codes; unclassified (20 sources)Sleep apnea; Translations: [Unspecified sleep apnea]Onset: 12-18-2023 Resolved: 686561-55-0672EqnsylgWridungx codes; unclassified (16 sources)H/O: anticoagulant therapy; Translations: [Personal history of other drug therapy] Resolved: 02-32-4682EvxoflwuTrzxgmcy codes; unclassified (1 source)Localized edema; Translations: [LOCALIZED EDEMA]Onset: 03-28-2022 EpisodicSpondylosis; intervertebral disc disorders; other back problems (20 sources)Lumbago with sciatica; Translations: [Lumbago with sciatica, unspecified side]Onset: 382541-39-6563GvtjgbjeLrezdabbzrgs (1 source)COUGH, UNSPECIFIED; Translations: [COUGH, UNSPECIFIED]Onset: 99-34-1793Cjfbfwmsgonw (2 sources)Patient encounter -04-8021Sdrsvaikedvd (2 sources)Acute pain of left sizyxdza39-06-9209 Results Test NameValueInterpretationReference RangeFacilityCoding Summaryon 05-03-2025 Coding SummaryHTMLBase 64 TvenqyalZRt2tKw+PGhlYWQ+UJ6CBUAlH33kvDPwlA9jB7VQZYiCRiumPPBDZYmCJoAnfsMhLQ5wsFUd ZXJu [file] ZGV (more content not included)...[facility] CampusConsent Formson 70-34-6267Rngnzur [id number]#1.00OTGreen Cross HospitalConsultation/Specialist Noteon 05-03-2025 Consultation/Specialist [id number]#1.00OTMercy Health Willard HospitalOutside Recordson 39-17-5027Zwjkjza Records [id number]#1.00[facility] Telemetry Stripson 64-77-0382Abuuqpylc Strips [id number]#1.00[facility] Anesthesia Noteon 47-15-1169Pgihvddpjz NotePatient: ADELA HOPKINS Age: 64 years Sex: FEMALE [...] Signed on: 04/30/2025 15:32 EDT] Rafael Solorio MD [Verified on: 04/30/2025 15:32 EDT] Rafael Solorio MDKettering Health Main CampusAnesthesi NotePatient: ADELA HOPKINS Age: 64 years Sex: FEMALE [...] issues since, mild and mild MR, No chestpain. Gastrointestinal: No heartburn. Genitourinary: requires marquez cath [...] list: All Problems Asthma / SNOMED CT 761390465 / Confirmed CAD (coronary artery disease) / SNOMED CT 21886711 / Confirmed Depression / SNOMED CT 95242658 / Confirmed GERD (gastroesophageal reflux disease) / SNOMED CT 856225097 / Confirmed Elevated cholesterol / SNOMED CT 67364779 / Confirmed HTN (hypertension) / SNOMED CT 3795751757 / Confirmed Hypothyroidism / SNOMED CT 60406363 / Confirmed Ischemic cardiomyopathy / SNOMED CT 465257738 / Confirmed Nonrheumatic mitral valve regurgitation / SNOMED CT 809810914 / Confirmed Resolved: Heart attack / SNOMED CT 75100787 Histories Family History: Liver cancer Brother Brain tumor Father Stroke Father Heart attack Father Colon cancer Mother Procedure history: Placement of stent in cardiac conduit (3137441329). Comments: 04/02/2025 14:32 Verena Ha RN x4 Cervical spinal fusion (057203065). Comments: 04/02/2025 14:33 Verena Ha RN C3-C7 COCO - Total abdominal hysterectomy (125069268). Arthroplasty of left shoulder (4718188342). Arthroplasty of left knee (9406218041). Appendectomy (600651251). Gallbladder (85966209). Cataract (003160858). Comments: 04/02/2025 14:34 Verena Ha RN bilateral Colonoscopy (103459405). Social History Electronic Cigarette/Vaping Assessment Electronic Cigarette Use: Never. Alcohol Assessment Use: Current. 1-2 times per year Tobacco Assessment Never tobacco user Tobacco Use:. Substance Abuse Assessment Substance use: Never. . Physical Examination Vital Signs (last 24 hrs) Last Charted Temp Temporal 36.6 DegC (APRIL 30:) Heart Rate Monitored 74 bpm (APRIL 30:) Resp Rate 16 br/min (APRIL 30:) SBP 114 mmHg (APRIL 30:) DBP 66 mmHg (APRIL 30:) General: Alert and oriented, No acute distress. Airway: Mouth: Adequate opening. Neck: No full range of motion. Respiratory: Respirations are non-labored. Cardiovascular: Normal rate. Review / Management Laboratory Results ECG interpretation: SR with 1 deg AVB, old inferior PA. Plan [place] [employer] Anesthesiologists (ASA) physical status classification: Class III. Anesthetic Preoperative Plan Anesthesia: General. , Regional Interscalene Block. Anesthetic plan, risks, benefits, and alternatives discussed with the patient and/or family. Patient verbalized understanding. Informed consent was given. Consent was signed by the patient. [Electronically Signed on: 04/30/2025 11:42 EDT] Rafael Solorio MD [Verified on: 04/30/2025 1 (more content not included)... [facility] CampusInpatient Patient Summaryon 98-97-0310Pfpfdkmty [place] [address] Patient Discharge Instructions Name: ADELA HOPKINS : 1960 Patient Address: [address] [place] [address] Primary Care Provider: Name: Robert Newell After you are discharged if you find you have any questions, please, call [phone] ext [phone] to speak to a nurse. Discharge Diagnosis: Acute pain of left shoulder Prescription Information: If you have been given a prescription for narcotics, seek immediate medical attention if you have any difficulty breathing or any sudden status changes such as confusion andsleepiness. If you or anyone you know is experiencing suicidal thoughts, mental health, alcohol and/or drug addiction problems; contact the [facility] 24/06 Crisis Hotline -Text 4HWQX bm 104098. If you received any narcotics, sedation, or [...] business decisions or sign any legal documents [facility] would like to thank you for allowing us to assist you with your healthcare needs.The following includes patient education materials and information regarding your injury/illness. ADELA HOPKINS has been given the following list of follow-up instructions, prescriptions, and patient education materials: Follow-up Instructions With: Address: When: Richard Camarena [address] [place] [address] Business (1) 05/14/2025 10:30 AM With: Address: When: Robert Newell [address] [place] [address], [facility] [address] [place] [address] Business (1) Medications During the course of your [...] B12 50 mcg oral tablet) 1 tab(s) Ora (more content not included)...[facility] Intraoperative Recordon 87-08-8304PZQP Intraoperative RecordMAGR Intra-Op Record Summary Primary Physician: BERNABE HUNT DO Finalized Date/Time: 04/30/25 16:48:53 Pt. Name: ADELA HOPKINS /Sex: 1960 FEMALE Med Rec #: [id number] Physician: BERNABE HUNT DO Financial #: [id number] Pt. Type: D Room/Bed: / Admit/Disch: 04/30/25 [...] Role Performed Surgeon - Primary Anesthesiologist of Licensed Dispensing Optician Record Time In 04/30/25 13:05:00 04/30/25 13:05:00 04/30/25 13:05:00 Time Out 04/30/25 15:20:00 04/30/25 15:20:00 04/30/25 15:20:00 Procedure Arthroscopy Arthroscopy Arthroscopy Shoulder(Left) Shoulder(Left) Shoulder(Left) Last Modified By: Pilar Alvarez RN, Barbara RN Long, Barbara RN 04/30/25 15:46:27 04/30/25 15:46:27 04/30/25 15:46:27 Entry 4 Entry 5 Case Attendee Lilo Polk CST, Lauren M MAINTENANCE SUPERVISOR CSFA Role Performed Scrub Personnel Hat Renovator Time In 04/30/25 13:05:00 04/30/25 13:05:00 Time [...] Concerns n/a Addressed Time Out Lilo Polk MAINTENANCE SUPERVISOR, Time Out Time 04/30/25 13:40:00 Participants Pilar Alvarez RN, Rafael Solorio MD, Tricia Gardner MAINTENANCE SUPERVISOR CSFA, BERNABE HUNT DO Last Modified By: [...] Patient is free from signs and symptoms o (more contentnot included)...[facility] Intraoperative RecordMAGR Intra-Op Record Summary Primary Physician: Finalized Date/Time: 04/30/25 13:04:10 Pt. Name: ADELA HOPKINS JOSE /Sex: 1960 FEMALE Med Rec #: [id number] Physician: BERNABE HUNT DO Financial #: [id number] Pt. Type: D Room/Bed: / Admit/Disch: 04/30/25 10:21:22 - Institution: Case Times MAGR Entry 1 Patient In Room Time 04/30/25 12:27:00 Out Room Time 04/30/25 13:03:00 Anesthesia Start Time 04/30/25 12:33:00 Stop Time 04/30/25 12:37:00 Surgery Start Time 04/30/25 12:34:00 Stop Time 04/30/25 12:37:00 Last Modified By: Nakul Hanson RN 04/30/25 13:03:49 Case Attendance MAGR Entry 1 Entry 2 Case Attendee Rafael Solorio MD, Margaret RN Role Performed Anesthesiologist of Licensed Dispensing Optician Record Time In 04/30/25 12:27:00 04/30/25 12:27:00 Time Out 04/30/25 13:03:00 04/30/25 13:03:00 Procedure Interscalene Block Interscalene Block Last Modified By: Nakul Hanson RN, Margaret RN 04/30/25 13:03:59 04/30/25 [...] laparoscope or robotic assistance Last Modified By: Nakul Hanson RN 04/30/25 12:47:42 Post-Care Text: O.730 [...] start of the procedure: Last Modified By: Nakul Hanson RN 04/30/25 12:48:05 Post-Care Text: O.760 [...] MD, Time Out Time 04/30/25 12:30:00 Participants Nakul Hanson RN Last Modified By: Nakul Hanson RN 04/30/25 12:48:49 Patient Positioning MAGR [...] Outcome Met (O.80) Yes Last Modified By: Nakul Hanson RN 04/30/25 12:49:50 Post-Care Text: E.290 Evaluates musculoskeletal status O.80 Patient is free from signs and symptoms of injury related to positioning Skin Prep MAGR Pre-Care Text: A.30 Verifies allergies Im.270 Performs skin preparation Im.270.1 Implements protective measures toprevent skin and tissue injury due to chemical sources Entry 1 Skin Prep Syntegrity Prep Agents (Im.270) Chlorhexidine Gluconate Prep By Rafael Solorio MD and Alcohol Prep Area (Im.270) Shoulder, Neck Prep Area Details Left Skin Prep Agent Dry Yes Without Pooling Hair Removal Syntegrity Hair Removal Methods No hair removal performed Outcome Met (O.100) Yes Last Modified By: Nakul Hanson RN 04/30/25 12:50:54 Post-Care Text: E.10 Evaluates for signs and symptoms of physical injury to skin and tissue O.100 Patient is free from signs an (more content not included)...[facility] PACU Recordon [id number] PACU RecordMA PACU Record Summary Primary Physician: BERNABE HUNT DO Finalized Date/Time: 04/30/25 15:58:25 Pt. Name: ADELA HOPKINS/Sex: 1960 FEMALE Med Rec #: [id number] Physician: BERNABE HUNT DO Financial #: [id number] Pt. Type: D Room/Bed: / Admit/Disch: 04/30/25 10:21:22 - Institution: PACU Case Times MAGR Entry 1 In PACU I 04/30/25 15:24:00 Discharge from PACU 04/30/25 15:56:00 I Last Modified By: Patty Cochran RN 04/30/25 15:58:19 Finalized By: Patty Cochran RN Document Signatures Signed By: Patty Cochran RN 04/30/25 15:58No[facility] Postoperative Recordon [id number] Postoperative RecordMAGR Phase II Record Summary Primary Physician: BERNABE HUNT DO Finalized Date/Time: 04/30/25 16:50:41 Pt. Name: ADELA HOPKINS D.O.B./Sex: 1960 FEMALE Med Rec #: [id number] Physician: BERNABE HUNT DO Financial #: [id number] Pt. Type: D Room/Bed: / Admit/Disch: 04/30/25 10:21:22 - Institution: Phase II Case Times MAGR Pre-Care Text: Patient is free from s/s of injury. Patient remains free from compromised physical state related tosurgery or anesthesia. Patient comfort maintained. Patient/family verbalize [...] Signatures Signed By: Patty Cochran RN 04/30/25 16:50NoK[facility] Preoperative Recordon [id number] Preoperative RecordMAGR Pre-Op Record Summary Primary Physician: BERNABE HUNT DO Finalized Date/Time: 04/30/25 13:04:42 Pt. Name: ADELA HOPKINS D.O.B./Sex: 1960 FEMALE Med Rec #: [id number] Physician: BERNABE HUNT DO Financial #: [id number] Pt. Type: D Room/Bed: / Admit/Disch: 04/30/25 [...] Preop Departure 04/30/25 13:03:00 Last Modified By: Nakul Hanson RN 04/30/25 13:04:37 Post-Care Text: Patient is prepared mentally and physically and is ready for surgery. The patient remains free froms/s of injury. Patient/family express understanding of plan of care and participate in decisions affectinghis or her perioperrative plan of care. Allergies documented appropriately. Patient identifiers and consent correct. General Comments: Pt arrives to [facility] ambulatory. Denies CP, cough, cold, COVID like sx. Denies diabetes, pacer/defib, BEBETO. Pt verbalizes understanding of post op anesthesia orders including no driving for 24h. Finalized By: Nakul Hanson RN Document Signatures Signed By: Nakul Hanson RN 04/30/25 13:04[facility] CampusPatient Handouton 45-68-0458Cqzzbci HandoutOutpatient Shoulder Discharge Instructions 1.) For the next [...] to start with liquids and gradually work upto solid foods. 5.) If you experience persistent nausea or vomiting, pain not controlled with your pain medicine and ice, bleeding that you feel is excessive, swelling or fever, please call Dr. Hunt at [phone]. 6.) Keep dressings in place, clean and dry until 05/04/25. 7.) On 05/04/25, remove the dressings, shower and cover the incision with band aids. 8.) Flex and extend elbow 15 times twice a day starting tomorrow. 9.) Use the sling continuously except to bathe. 10.) DO NOT LIFT ARM AWAY FROM SIDE!! 11.) Use Ice as needed to help with pain control.[facility] CampusProgress Note - Nurseon 72-75-3769Ivarfpos Note - NurseSpoke with pt and informed her to be at hospital at 1030 and NPO after MN, she verbalizes understanding. [Electronically Signed on: 04/29/2025 10:56 EDT] Mirza Bruner RN [Verified on: 04/29/2025 10:56 EDT] Mirza Bruner RNNoMount St. Mary HospitalCoding Summaryon 16-34-1945Yhzusd SummaryHTMLBase 64 CmwydmsmHIo7rIn+PGhlYWQ+CV0XVCJkL36ogSXlwP9bI4LNAWgELjjaCVASUWzBHdNlxlSvQO8qeVFe ZXJu [file] cHN (more content not included)...NormalUtgruder HospitalProvider Orderson 74-97-9665Uosgszzn [id number]#1.00OTGTIFF NormalUtgruder HospitalCoding Summaryon 09-99-2454Vpgquu SummaryHTMLBase 64 VlasvmniLEb3oIw+PGhlYWQ+RH1YPWKdW27zoDOqjX8lH1JYKIwNXgmwLUWCKSzZJqDwmyLeFE2fbHPc ZXJu [file] cHN (more content not included)...NormalMagruder HospitalProgress Note - Nurseon 43-06-6294Gcjemdgg Note - NursePatient called, message left. Patient returned call. Informed of only having an ECHO done in Dr. Mejia's office and not EKG. Questioned patient if she could come in to get EKG done, states 04/07/25 she can come in to get it done. Instructed patient to check in at outpatient admittance and theywill register her and she can than go to radiology to get the EKG done, verbalized understanding. [Electronically Signed on: 04/05/2025 10:02 EDT] Nakul Hanson RN [Verified on: 04/05/2025 10:02 EDT] Nakul Hanson RNNoMount St. Mary Hospital.Auto Diff 1on 56-36-8888Dijd Chicot %8 %Normal1-12[facility] HospitalComment on above:Performed By: #### [id number], [id number], [id number] ####[facility] (DEFAULT)[address] [place] [address] 36807Miqi Abs#0.0 v73Kmrjyq7.0-0.2Magrriverview health institute HospitalComment on above:Performed By: #### [id number], [id number], [id number] ####[facility] (DEFAULT)[address] [place] [address] 68237Fakqdkswf/100 WBC (Bld)0.6 %Normal0.2-2.0[facility] HospitalComment on above:Performed By: #### [id number], [id number] ####[facility] (DEFAULT)[address] [place] [address] 31455Bch Abs# 0.1 o83Ghlugy1.0-0.4[facility] HospitalComment on above:Performed By: #### [id number], [id number], [id number] ####[facility] (DEFAULT)[address] [place] [address] 55282Zyvygzyrvqv/100 WBC (Bld)1.0 %Normal0.9-4.0[facility] HospitalComment on above:Performed By: #### [id number], [id number], [id number] ####[facility] (DEFAULT)[address] [place] [address] 01397Inzdg Abs# 1.6 r32Jorxwq3.3-2.9[facility] HospitalComment on above:Performed By: #### [id number], [id number], [id number] ####[facility] (DEFAULT)[address] [place] [address] 10349Cwzajrgizvb/100 WBC (Bld)28 %Epniwu96-42Vkqbckks HospitalComment on above:Performed By: #### [id number], [id number], [id number] ####[facility] (DEFAULT)[address] [place] [address] 97487Oglx Abs# 0.4 t31Ocnqld7.0-0.8[facility] HospitalComment on above:Performed By: #### [id number], [id number], [id number] ####[facility] (DEFAULT)[address] [place] [address] 91116Sjxn Abs#3.6 f79Vfyfnn1.5-9.2Magrriverview health institute Hospital Comment on above:Performed By: #### [id number], [id number], [id number] ####[facility] (DEFAULT)[address] [place] [address] 93669Uejrpnujlwo/100 WBC (Bld)62 %Otfoni46-60Hckyzwkz HospitalComment on above:Performed By: #### [id number], [id number], [id number] ####[facility] (DEFAULT)[address] [place] [address] 78186LZF Standardon 81-94-3962xOFR Non AA>60Invalid Interpretation CodeOhiohealth O'Bleness Hospital HospitalComment on above:Performed By: #### [id number], [id number], [id number] ####[facility] (DEFAULT)[address] [place] [address] 31399cRGR AA>60Invalid Interpretation CodeOhiohealth O'Bleness Hospital HospitalComment on above:Performed By: #### [id number], [id number], [id number] ####[facility] (DEFAULT)[address] [place] [address] 56477Demakar [Mass/Vol]8.6 mg/dLLow8.9-10.3[facility] HospitalComment on above:Performed By: #### [id number], [id number], [id number] ####[facility] (DEFAULT)[address] [place] [address] 23716Kxthjchz [Moles/Vol]108 mmol/MSaeklx852-494Zcagtxwn HospitalComment on above:Performed By: #### [id number], [id number], 4472445 ####[facility] (DEFAULT)[address] [place] [address] 44170DW5 [Moles/Vol]25 mmol/FXyfdhg11-55Ocmhkbet HospitalComment on above:Performed By: #### [id number], [id number], 3740091 ####[facility] (DEFAULT)[address] [place] [address] 08583Fnqdkeyqii [Mass/Vol]0.85 mg/dLNormal0.60-1.30 [facility] HospitalComment on above:Performed By: #### [id number], [id number], 4446651 ####[facility] (DEFAULT)[address] [place] [address] 74890 Glucose [Mass/Vol]89.0 mg/zXMmfnjd61.0-118.0[facility] HospitalComment on above: Performed By: #### [id number], [id number], 7746077 ####[facility] (DEFAULT)[address] [place] [address] 80568Cxdhthuxs [Moles/Vol]4.1 mmol/L Normal3.6-5.1[facility] HospitalComment on above:Performed By: #### [id number], 78638125, 4300295 ####[facility] (DEFAULT)[address] [place] [address] 23010Jnscfn [Moles/Vol]139.0 mmol/BAxynzm494.0-144.0[facility] HospitalComment on above:Performed By: #### [id number], [id number], 7647485 ####[facility] (DEFAULT)[address] [place] [address] 03599Bchz nitrogen [Mass/Vol]13 mg/dL Normal8-26[facility] HospitalComment on above:Performed By: #### [id number], [id number], 9792403 ####[facility] (DEFAULT)[address] [place] [address] 90788Ufmol gap [Moles/Vol]10.1 mmol/LNormal5.0-19.0[facility] HospitalComment on above:Performed By: #### [id number], 74089417, 4296535 ####[facility] (DEFAULT)[address] [place] [address] 94533Pioisplqbl177 mOsm/LInvalid Interpretation CodeOhiohealth O'Bleness Hospital HospitalComment on above:Performed By: #### [id number], [id number], [id number] ####[facility] (DEFAULT)[address] [place] [address] 85612Orgn nitrogen/Creatinine [Mass ratio]15.2 mg/mg Normal4.6-16.2[facility] HospitalComment on above:Performed By: #### [id number], [id number], 0801006 ####[facility] (DEFAULT)[address] [place] [address] 81027GTR w/ Auto Diffon 63-73-6488Cyheeqstmqv distribution width (RBC) [Ratio]15.2 %High11.5-15.0[facility] HospitalComment on above:Performed By: #### [id number], [id number], 7133140 ####[facility] (DEFAULT)[address] [place] [address] 24089Ybyssqkuix (Bld) [Volume fraction]35.1 %Normal 33.7-40.4[facility] HospitalComment on above:Performed By: #### [id number], 41434429, 7279885 ####[facility] (DEFAULT)[address] [place] [address] 26759Tmjivifvgy (Bld) [Mass/Vol]11.8 g/pWYttyoc29.3-15.9[facility] Hospital Comment on above:Performed By: #### [id number], 46542806, 7622850 ####[facility] (DEFAULT)[address] [place] [address] 11667Nyf Diff?AutoInvalid Interpretation CodeOhiohealth O'Bleness Hospital HospitalComment on above:Performed By: #### [id number], [id number], 9147459 ####[facility] (DEFAULT)[address] [place] [address] 45752LRX (RBC) [Entitic mass]31 ddIowexo90-19Bfdisekz HospitalComment on above:Performed By: #### [id number], 78752773, 3838549 ####[facility] (DEFAULT)[address] [place] [address] 83929GECF (RBC) [Mass/Vol]34 g/yEYjveze95-36Udhfnilv HospitalComment on above:Performed By: #### [id number], 46612884, 3757607 ####[facility] (DEFAULT)[address] [place] [address] 88338GZD (RBC) [Entitic vol]93 yPVgqgsi29-617Ryjiniul HospitalComment on above:Performed By: #### [id number], [id number], 5252731 ####[facility] (DEFAULT)[address] [place] [address] 09030Ryjpmhnx 283 n57Sjskdu989-449Pocfnsjh HospitalComment on above:Performed By: #### [id number], 90559291, 4135534 ####[facility] (DEFAULT)[address] [place] [address] 40399Pxtyzvvw mean volume (Bld) [Entitic vol]8.0 fLNormal 6.3-10.2[facility]river[facility] HospitalComment on above:Performed By: #### [id number], 16896800, 9485371 ####[facility] (DEFAULT)[address] [place] [address] 73624YKN2.78 w97Ujngdz4.70-5.30[facility] HospitalComment on above:Performed By: #### [id number], 45501285, 7183922 ####[facility] (DEFAULT)[address] [place] [address] 35243NWY4.7 g70Ybcdfl2.5-10.5[facility] HospitalComment on above:Performed By: #### [id number], 54597437, 8218489 ####[facility] (DEFAULT)[address] [place] [address] 69553ILVKJSGDLHVXY ECHO (TTE) COMPLETEon 97-79-8848AJXKNAJFFDFLD ECHO (TTE) [address], [address] [place] [address] TRANSTHORACIC ECHOCARDIOGRAM REPORT Patient Name: ADELA HOPKINS Henry Physician: [id number] Lindy Lehman MD, [facility] Study Date: 02/23/2025 Ordering Provider: [id number] JAMES MEJIA MRN/PID: [id number] Fellow: Nurse: Date of /Age: 605/13/1960 Dining Service Supervisor: Isabel Diaz RDMS, years RDCS, RVT Gender Assigned at F Additional Staff: : Height: 157.48 cm Admit Date: Weight: 97.98 kg Admission Status: Outpatient BSA / BMI: 1.98 m2 / 39.51 Department Location: [address] Blood Pressure: 132 /70 mmHg Study Type: TRANSTHORACIC ECHO (TTE) COMPLETE Diagnosis/ICD: Atherosclerotic heart disease of [place] coronary artery without angina pectoris-I25.10; Old myocardial infarction-I25.2; Essential (primary) hypertension-I10; Ischemic cardiomyopathy-I25.5 Indication: CAD, CP, HTN, HLD, ICM, MR, PTCA and STEMI CPT Codes: Echo Complete w Full Doppler-60830 Study Detail: The following Echo studies were [...] normal. There is no indication of pulmonic valveregurgitation. Pericardium: No pericardial effusion noted. Aorta: The [...] RA Area A4C: 12.4 cm2 RA Major Reading A4C: 4.3 cm LV SYSTOLIC FUNCTION: Normal [...] 43 msec (30-60msec) MVA by PHT: 5.12 (more content not included)...[facility] HospitalUS Heart TransthoracicOrdered By: Lindy Lehman on 02-23-2025 Aortic Valve Area by Continuity of Peak Velocity2.18 yy3LslvhqkeoeChildren's Hospital of [facility] Work Phone: [phone] Valve Area by Continuity of VTI2.37 cm2 [facility] Work Phone: [phone] mn mrev4evVjQhpjsrqywlSelect [facility] Work Phone: [phone] pk mrfs8lmAoTprgdctrzlChildren's Hospital of [facility] Work Phone: [phone] pk vel1.51 m/[facility] Work Phone: [phone] vol index A/L28.6 ml/m1ZsxnmfapxhChildren's Hospital of Columbus Work Phone: [phone] A4C EF46.3[facility] Work Phone: [phone] Biplane EF46 %[facility] Work Phone: [phone] EF58 %[facility] Work Phone: [phone] [facility] Work Phone: [phone] diam2.12 [facility] Work Phone: MV avg E/e' ratio13.43[facility] Work Phone: MV E/A ratio0.86[facility] Work Phone: [phone] free wall pk S'9.89 cm/[facility] Work Phone: [phone] [facility] Work Phone: Tricuspid annular plane systolic excursion1.7 cm [facility] Work Phone: UnChildren's [facility] Work Phone: US Heart Transthoracicon 02-23-2025 [facility] [address] [facility], [address], [place] [address] TRANSTHORACIC ECHOCARDIOGRAM REPORT Patient Name: ADELA HOPKINS Reading Physician: [id number] Lindy Lehman MD, [facility] Study Date: 02/23/2025 Ordering Provider: [id number] JAMES MEJIA MRN/PID: [id number] Fellow: Nurse: Date of /Age: 605/13/1960 Dining Service Supervisor: Isabel Diaz RDMS, thai RDCS, RVT Gender Assigned at F Additional Staff: : Height: 157.48 cm Admit Date: Weight: 97.98 kg Admission Status: Outpatient BSA / BMI: 1.98 m2 / 39.51 Department Location: [facility] Heart kg/m2 [place] Blood Pressure: 132 /70 mmHg Study Type: TRANSTHORACIC ECHO (TTE) COMPLETE Diagnosis/ICD: Atherosclerotic heart disease of [place] coronary artery without angina pectoris-I25.10; Old myocardial infarction-I25.2; Essential (primary) hypertension-I10; Ischemic cardiomyopathy-I25.5 Indication: CAD, CP, HTN, HLD, ICM, MR, PTCA and STEMI CPT Codes: Echo Complete w Full Doppler-81685 Study Detail: The following Echo studies were [...] normal. There is no indication of pulmonic valveregurgitation. Pericardium: No pericardial effusion noted. Aorta: The [...] RA Area A4C: 12.4 cm2 RA Major Reading A4C: 4.3 cm LV SYSTOLIC FUNCTION: Normal Ranges: E (more content not included)...Lindy Page MD - 02/23/[address], [address] [address] TRANSTHORACIC ECHOCARDIOGRAM REPORT Patient Name: ADELA Crys HOPKINS Reading Physician: [id number] Lindy Lehman MD, [facility] Study Date: 02/23/2025 Ordering Provider: [id number] JAMES MEJIA MRN/PID: [id number] Fellow: Nurse: Date of /Age: 605/13/1960 Dining Service Supervisor: thai Mcdermott RDMS, RDCS, RVT Gender Assigned at F Additional Staff: : Height: 157.48 cm Admit Date: Weight: 97.98 kg Admission Status: Outpatient BSA / BMI: 1.98 m2 / 39.51 Department Location: [facility] [address] Blood Pressure: 132 /70 mmHg Study Type: TRANSTHORACIC ECHO (TTE) COMPLETE Diagnosis/ICD: Atherosclerotic heart disease of [place] coronary artery without angina pectoris-I25.10; Old myocardial infarction-I25.2; Essential (primary) hypertension-I10; Ischemic cardiomyopathy-I25.5 Indication: CAD, CP, HTN, HLD, ICM, MR, PTCA and STEMI CPT Codes: Echo Complete w Full Doppler-27384 Study Detail: The following Echo studies were [...] normal. There is no indication of pulmonic valveregurgitation. Pericardium: No pericardial effusion noted. Aorta: The [...] RA Area A4C: 12.4 cm2 RA Major Reading A4C: 4.3 cm LV SYSTOLIC FUNCTION: Normal [...] P.3 mmHg (<5mmHg) MV mean P.3 mmHg (<48mmH (more content not included)...[facility] Work Phone: W-arv reportOrdered By: Maurilio Zhang on 02-10-2025 [facility] report[facility] Main [address] [address] XRay Report Signed Patient: Adela Hopkins V MR#: [id number] : 1960 Acct:[id number] Age/Sex: 64 / F ADM Date: 5 Loc: XD Room: Type: REG CLI Attending Dr: Jordan Salazar MD Copies to: Jordan Salazar MD~ Ordering Provider: Jordan Salazar MD Date of Service: 02/10/25 XR/XR cerv [...] PROCESS. Impression dictated by: Maurilio Zhang Jr., DSladeOSlade02/10/2025 4:38 PM Dictation Location: [place] [address] Transcribed By: [facility] 02/10/25 1638 Dictated By: Maurilio Zhang Jr, DO 02/10/25 1636 Signed By: 02/10/25 1638 [facility] HospitalXR cerv spine AP/LAT/FLX/EXTon 91-41-0168QD cerv spine AP/LAT/FLX/EXTBRECKSVILLE VA / [facility] Main [address] [address] XRay Report Signed Patient: Adela Hopkins V MR#: [id number] 8 : 1960 Acct:[id number] Age/Sex: 64 / F ADM Date: 02/10/25 Loc: XD Room: Type: REG CLI Attending Dr: Jordan Salazar MD Copies to: Jordan Salazar MD Ordering Provider: Joradn Salazar MD Date of Service: 02/10/25 XR/XR cerv [...] Zhang Jr., D.OSlade02/10/2025 4:38 PM Dictation Location: [place] [address] Transcribed By: [facility] 02/10/25 1638 Dictated By: Maurilio Zhang Jr, DO 02/10/25 1636 Signed By: 02/10/25 1638[facility] Physician [facility] SHOULDER LEFT WO IV CONTRAST on 67-61-4163DJ SHOULDER LEFT WO IV CONTRASTEXAMINATION/TECHNIQUE: MR SHOULDER LEFT WO IV CONTRAST HISTORY: Chronic left [...] without tear. ELECTRONICALLY SIGNED BY: Michael Morton MDNormalNot AvailableXR Shoulder - left 2 Viewson 42-33-5598JXMR HealthcareImaging Result: AP, and scapular Y of left shoulder show humeral head to be well centered in the glenoid fossa without evidence of fracture or dislocation or degeneration. The acromioclavicular joint was on remarkable. Lung hutchinson visualized on today's x-ray showed excellent lung markings. Impression no acute bony process left shoulder. [facility] HealthcareRadiology Study observation (narrative)[facility] HealthcareLaboratory - Chemistry and Chemistry - challengeon 35-13-7861Ynzl T4 [Mass/Vol]1.53 ng/dL0.82 - 1.77 ng/dLNOMS HealthcareTSH Qn0.319 m[IU]/LLowNOMS HealthcareNo Panel Informationon 00-37-9329MDKPGERKHKJMZ JCQHHKXO8GMES HealthcareACINETOBACTER BAUMANIINot detectedNOMS HealthcareCANDIDA ALBICANS, PARAPSILOSIS, YWEMNQTAUE3XNUO HealthcareCANDIDA ALBICANS, PARAPSILOSIS, TROPICALISNot detectedNOMS HealthcareCANDIDA PIRQYUIR7VWGC HealthcareCANDIDA GLABRATANot detectedNOMS HealthcareCANDIDA XKWTVU5TNZN HealthcareCANDIDA KRUSEI Not detectedNOMS HealthcareCITROBACTER BNWLCQUK9WBJS HealthcareCITROBACTER FREUNDIINot detectedNOMS HealthcareDFR (A1, A5), SUL (1,2)23.552AbnormalNOMS HealthcareDFR (A1, A5), SUL (1,2)DetectedAbnormalNOMS HealthcareENTEROBACTER AEROGENES, GLHMNZS9NWLI HealthcareENTEROBACTER AEROGENES, CLOACAENot detected NOMS HealthcareENTEROCOCCUS FAECALIS, SOWVLTD2MUBI HealthcareENTEROCOCCUS FAECALIS, FAECIUMNot detectedNOMS HealthcareESCHERICHIA COLI23.316AbnormalNOMS HealthcareESCHERICHIA COLIDetectedAbnormalNOMS HealthcareInterpretation and review of laboratory resultsAbnormalNOMS HealthcareKLEBSIELLA PNEUMONIAE, URINFXQ5WXSJ HealthcareKLEBSIELLA PNEUMONIAE, OXYTOCANot detectedNOMS Healthcare MORGANELLA HAEXCCED0DBIJ HealthcareMORGANELLA MORGANIINot detectedNOMS HealthcarePROTEUS MIRABILIS, WIKYXRQJ0MKFD HealthcarePROTEUS MIRABILIS, VULGARIS Not detectedNOMS HealthcarePSEUDOMONAS PKJBXSZFSX9QFAE HealthcarePSEUDOMONAS AERUGINOSANot detectedNOMS HealthcareSERRATIA INRXTFLNBU1EGSY HealthcareSERRATIA MARCESCENSNot detectedNOMS HealthcareSTAPHYLOCOCCUS BTPKUV8PPWP Healthcare STAPHYLOCOCCUS AUREUSNot detectedNOMS HealthcareSTAPHYLOCOCCUS EPIDERMIDIS, HAEMOLYTICUS, LUGDUNENSIS, SAPROPHYTICUS (GMBEF8MJAY HealthcareSTAPHYLOCOCCUS EPIDERMIDIS, HAEMOLYTICUS, LUGDUNENSIS, SAPROPHYTICUS (URINANot detectedNOMS HealthcareSTREPTOCOCCUS AGALACTIAE (GROUP B STREP)0NOMS HealthcareSTREPTOCOCCUS AGALACTIAE (GROUP B STREP)Not detectedNOMS HealthcareSTREPTOCOCCUS PYOGENES (GROUP A STREP)0NOMS HealthcareSTREPTOCOCCUS PYOGENES (GROUP A STREP)Not detectedNOMS HealthcareNOMS HealthcareInterpretation and review of laboratory resultsAbAleda E. Lutz Veterans Affairs Medical CenterPerformed at: Lab[address] [id number] Fur Blower Operator: Rodrigo Pablo PhD, Phone: [phone] Psychiatric CenterANA on 54-83-9108Kztahrx Ab Ql (S)NegativeNegativeCameron Regional Medical CenterAldolaseon 16-99-4486Nposbdrq [Catalytic activity/Vol]3.2 mU/mLLow3.3 - 10.3 U/LNOMS HealthcareCKon 78-82-0237RC [Catalytic activity/Vol]31 U/LLow32 - 182 U/LNOMS HealthcareHemoglobin A1con 87-29-6740PoE6f (Bld) [Mass fraction]5.6 %4.8 - 5.6 % [facility] HealthcareComment on above:Prediabetes: 5.7 - 6.4 Diabetes: >6.4 Glycemic control for adults with diabetes: <7.0 LYME DISEASE SEROLOGY W/REFLEXon 12-18-2024. burgdorferi IgG+IgM IA Ql (S) NegativeNegativeRIVERTON HOSPITAL HealthcareComment on above:Lyme antibodies not detected. Reflex testing is not indicated. No laboratory evidence of infection with B. burgdorferi (Lyme disease). Negative results may occur in patients recently infected (less than or equal to 14 days) with B. burgdorferi. If recent infection is suspected, repeat testing on a new sample collected in 7 to 14 days is recommended. Myoglobin, serumon 86-56-6711Mnetuzdej [Mass/Vol]23 ng/mLLow25 - 58 ng/mLNOMS HealthcareNo Panel Informationon 42-37-9825Nljoxxdwnlgaed and review of laboratory resultsAbnormalCameron Regional Medical CenterPerformed at: Lab[address] [id number] Fur Blower Operator: Rodrigo Pablo PhD, Phone: [phone] Psychiatric Center PROTEIN ELECTRO.,Son 85-58-9115Ownrnxf [Mass/Vol]3.3 g/dL2.9 - 4.4 g/dLCameron Regional Medical CenterAlbumin/Globulin [Mass ratio]1 {ratio}0.7 - 1.7NOOR HealthcareAlpha 1 globulin Elph [Mass/Vol]0.2 g/dL0.0 - 0.4 g/dLRIVERTON HOSPITAL HealthcareAlpha 2 globulin Elph [Mass/Vol]0.9 g/dL0.4 - 1.0 g/dLRIVERTON HOSPITAL HealthcareBeta globulin Elph [Mass/Vol]1 g/dL0.7 - 1.3 g/dLRIVERTON HOSPITAL HealthcareGamma globulin Elph [Mass/Vol]1.1 g/dL0.4 - 1.8 g/dLRIVERTON HOSPITAL HealthcareGlobulin (S) [Mass/Vol]3.2 g/dL2.2 - 3.9 g/dL NOM HealthcareLaboratory comment Theodore (Report)CommentNOParkland Health CenterComment on above:Protein electrophoresis scan will follow via computer, mail, or drafter patent delivery. Protein [Mass/Vol]6.5 g/dL6.0 - 8.5 g/dLRIVERTON HOSPITAL HealthcareProtein.monoclonal Elph [Mass/Vol]Not ObservedNot Observed g/dLNOOR HealthcareVitamin B12on 12-18-2024 Cobalamin (Vitamin B12) [Mass/Vol]744 pg/mL232 - 1245 pg/mLNOMS Healthcare Vitamin B6on 74-32-7118Hmiiswoxx phosphate [Mass/Vol]6.2 ug/L3.4 - 65.2 ug/LNOMS HealthcareComment on above:Deficiency: <3.4 Marginal: 3.4 - 5.1 Adequate: >5.1 Test(s) 766248-Qogdmhg B6 was developed and its performance characteristics determined by [facility]. It has not been cleared or approved by the Food and Drug Administration. Performed at: Lab[address] [id number] Fur Blower Operator: Curtis Miller MD, Phone: [phone] macro (dipstick) panel (U)on 81-87-7609Reipetmjf, UANegativeNegative - 4(70) +++ mg/dL NOMS HealthcareBlood, UAPositiveNegative - 50 Anthony/mcLNOMS HealthcareClarity, UA CloudyNOMS HealthcareColor, UAYellowNOMS HealthcareGlucose, UANegativeNegative - 2000(110) ++++ mg/dLNOMS HealthcareKetones, UANegativeNegative - 160(16) ++++ mg/dLNOMS HealthcareLeukocytes, UAPositiveNegative - 500+++ Chito/mcLNOMS HealthcareNitrite, UANegativeNegative - PositiveNOMS HealthcarepH, UA65 - 9NOMS HealthcareProtein, UANegativeNegative - 2000(20) ++++ mg/dLNOMS HealthcareSpec Grav, UA1.0051 - 1.03NOMS HealthcareUrobilinogen, UA0.20.2 - 12 mg/dLNOMS HealthcareNOMS HealthcareMR lumbar spine wo conon 70-82-4481RC lumbar spine wo [facility] [place] [address] MRI Report Signed Patient: Adela Hopkins V MR#: [id number] 8 : 1960 Acct:[id number] Age/Sex: 64 / F ADM Date: 10/20/24 Loc: [facility] Room: Type: [facility] Attending Dr: Jazmine Benoit DO Copies to: [...] stenosis. Impression dictated by: Maurilio Zhang Jr., D.O.10/20/2024 3:46 PM Dictation Location: [place] [address] Transcribed By: [facility] 10/20/24 1546 Dictated By: Maurilio Zhang Jr, DO 10/20/24 1543 Signed By: 10/20/24 1546[facility] Physician GroupBanneretic resonance imaging reportOrdered By: Maurilio Zhang on 10-93-1820Ogspk reportBRECKSVILLE VA / [facility] Main [place] [address] [place] [address] MRI Report Signed Patient: Adela Hopkins V MR#: [id number] : 1960 Acct:[id number] Age/Sex: 64 / F ADM Date: 4 Loc: [facility] Room: Type: [facility] Attending Dr: Jazmine Benoit DO Copies to: Jazmine Benoit DO~ Ordering Provider: Jazmine Benoit DO Date of Service: 10/20/24 MR/MR lumbar spine wo con: M51.362 MRI lumbar spine without IV contrast. Reason for exam: Back pain no known injury. COMPARISON: Lumbar spine series 04/28/2020. TECHNIQUE: Multisequence, multiplanar imaging of the lumbar spine was obtained without use of IV contrast. FINDINGS: Vertebral body heights appear maintained. No bone marrow edema. Thisopacification is noted. Spinal cord terminates in normal position without abnormal cord signal. No paraspinal mass. Partially visualized cyst left kidney. L1-L2: No posterior disc pathology. Mild facet joint degenerative change. No significant canal or neural foraminal stenosis. L2-L3: Mild broad-based disc bulge. Mild facet joint degenerative changes. Mild canal and bilateralneural foraminal stenosis. L3-L4: Mild broad-based disc bulge. Mild facet joint degenerative changes. Mild canal and bilateralneural foraminal stenosis. L4-L5: Mild broad-based disc bulge. Facet joint degenerative change. Mild canal and bilateral foraminal stenosis. L5-S1: No posterior disc pathology. No canal or neural foraminal stenosis. MR/MR lumbar spine wo con IMPRESSION: Multilevel degenerative disc disease as described above without significant canal or neural foraminal stenosis. Impression dictated by: Nicolasa Tripp Jr..OSlade10/20/2024 3:46 PM Dictation Location: RADIO-PC-22 Transcribed By: [facility] 10/20/24 1546 Dictated By: Maurilio Zhang Jr, DO 10/20/24 1543 Signed By: 10/20/24 1546 [facility] HospitalX-ray reportOrdered By: Maurilio Zhang on 86-06-7684Efwyk reportBRECKSVILLE VA / [facility]ILLE [facility] Main [place] [address] [place] [address] XRay Report Signed Patient: Adela Hopkins V MR#: [id number] : 1960 Acct:[id number] Age/Sex: 64 / F ADM Date: 4 Loc: [facility] Room: Type: [facility] Attending Dr: Jazmine Benoit DO Copies to: Jazmine Benoit DO~ Ordering Provider: Jazmine Benoit DO Date of Service: 10/20/24 XR/XR pre/post mri xray: LUMBAR PRES Lumbar spine 2 views. Reason for exam: Back pain. FINDINGS: Vertebral body heights appear maintained. Facet joint degenerative changes. No significant disc height loss. XR/XR pre/post mri xray IMPRESSION: Degenerative changes involving the lumbar spine best evaluated by MRI. Impression dictated by: Maurilio Zhang Jr. D.OSlade10/20/2024 3:46 PM Dictation Location: RADIO-PC-22 Transcribed By: ERICA 10/20/24 1546 Dictated By: Maurilio Zhang Jr, DO 10/20/24 1546 Signed By: 10/20/24 1546 [facility] HospitalXR pre/post mri xrayon 36-62-3369IS pre/post mri xrayBRECKSVILLE VA / [facility] Main [address] [address] XRay Report Signed Patient: Adela Hopkins V MR#: [id number] 8 : 1960 Acct:[id number] Age/Sex: 64 / F ADM Date: 10/20/24 Loc: [facility] Room: Type: [facility] Attending Dr: Jazmine Benoit DO Copies to: [...] MRI. Impression dictated by: Maurilio Zhang Jr., D.O.10/20/2024 3:46 PM Dictation Location: [place] [address] Transcribed By: ERICA 10/20/24 154 Dictated By: Maurilio Zhang Jr, DO 10/20/24 1546 Signed By: 10/20/24 1546[facility] Physician GroupOR cardiac event monitoron 12-06-2411SJ cardiac event monitorBRECKSVILLE VA / CRILLE HOSPITAL Main [address] [address] Cardiac Event Monitor Signed Patient: Adela Hopkins V MR#: [id number] 8 : 1960 Acct:[id number] Age/Sex: 64 / F ADM Date: 08/15/24 Loc: Room: Type: [facility] Attending Dr: Siobhan Whitfield MD Copies to: MD Tata Sorensen MD Ordering Provider: Siobhan Whitfield MD Date of Service: 08/15/24 [place]/CA cardiac event monitor: 30 day monitor--send to [facility] Heart REFERRING PHYSICIAN: Siobhan Whitfield MD REASON [...] Tata Faulkner MD 09/16/24 1733 Signed By: 09/21/24 1220[facility] Physician GroupNo Panel Informationon 97-05-9035MCDACameron Regional Medical CenterActivated partial thromboplastin time (aPTT) in platelet poor plasma by coagulation aOrdered By: Richard Mohan on 08-12-2024 aPTT Coag (PPP) [Time]31.4 s25.1-36.5FMercy Health [facility] HospitalComment on above:A hematocrit value greater than 55% may lead to inaccurate results in coagulation testing. Patientshaving hematocrit values >55% require a special collection tube for coagulation studies. Please contact the laboratory at [phone] for redraw instructions.Alanine aminotransferase [Enzymatic activity/volume] in Serum or PlasmaOrdered By: Richard Mohan on 82-97-9603YAG [Catalytic activity/Vol]21 U/LFort Hamilton HospitalALT [Catalytic activity/Vol]Alanine aminotransferase [Enzymatic activity/volume] in Serum or PlasmaFort Hamilton HospitalAlbumin [Mass/volume] in Serum or Plasma by Bromocresol green (BCG) dye binding methoOrdered By: Richard Mohan on 13-46-2054Fwjehco BCG dye [Mass/Vol]3.9 g/dL3.5-5.7FMercy Health Urbana HospitalAlbumin BCG dye [Mass/Vol]Albumin [Mass/volume] in Serum or Plasma by Bromocresol green (BCG) dye binding metho3.5-5.7FMercy Health [facility] HospitalAlkaline phosphatase [Enzymatic activity/volume] in Serum or PlasmaOrdered By: Richard Mohan on 18-52-8069BIC [Catalytic activity/Vol]58 U/B32-138ErlrnuxjqFort Hamilton HospitalALP [Catalytic activity/Vol]Alkaline phosphatase [Enzymatic activity/volume] in Serum or Fkcnod44-361FikxmzrwrFort Hamilton HospitalAspartate aminotransferase [Enzymatic activity/volume] in Serum or PlasmaOrdered By: Richard Mohan on 40-62-0641HAI [Catalytic activity/Vol]24 U/S04-22QvagxwgcxFort Hamilton HospitalAST [Catalytic activity/Vol]Aspartate aminotransferase [Enzymatic activity/volume] in Serum or Opaebj51-62ZpevvbstjFort Hamilton HospitalBasophils Auto (Bld) [#/Vol]Ordered By: Richard Mohan on 04-07-1159Uyostxgeg (Bld) [#/Vol]0.0 10*3/uL0.0-0.2 [facility] HospitalBasophils (Bld) [#/Vol]Automated basophil count 0.0-0.2FMercy Health Urbana HospitalBasophils/100 WBC Auto (Bld)Ordered By: Richard Mohan on 78-37-5417Bimntxrst/100 WBC (Bld)0.3 %.[facility] HospitalBasophils/100 WBC (Bld)Automated basophil %.[facility] HospitalBilirubin.direct [Mass/volume] in Serum or PlasmaOrdered By: Richard Mohan on 51-06-3046Cefqjjbnd.direct [Mass/Vol]0.10 mg/dL0.03-0.18 [facility] HospitalBilirubin.direct [Mass/Vol]Bilirubin.direct [Mass/volume] in Serum or Plasma0.03-0.18FMercy Health [facility] Bilirubin.total [Mass/volume] in Serum or PlasmaOrdered By: Richard Mohan on 80-63-7091Bmaaxfpnk [Mass/Vol]0.5 mg/dL0.3-1.0[facility] Bilirubin [Mass/Vol]Bilirubin.total [Mass/volume] in Serum or Plasma0.3-1.0 [facility] HospitalCalcium [Mass/volume] in Serum or PlasmaOrdered By: Richard Mohan on 65-43-6591Ucumtvl [Mass/Vol]8.4 mg/dLLow8.6-10.3 [facility] HospitalCalcium [Mass/Vol]Calcium [Mass/volume] in Serum or PlasmaLow8.6-10.3FMercy Health Urbana HospitalCarbon dioxide, total [Moles/volume] in Serum or PlasmaOrdered By: Richard Mohan on 70-89-9204JJ2 [Moles/Vol]26.6 mmol/L21.0-31.0[facility] HospitalCO2 [Moles/Vol] Carbon dioxide, total [Moles/volume] in Serum or Mmqrus37.0-31.0[facility] HospitalChloride [Moles/volume] in Serum or PlasmaOrdered By: Richard Mohan on 43-00-8116Ncfgmjsr [Moles/Vol]105 mmol/K76-105JyjvkwntjFort Hamilton HospitalChloride [Moles/Vol]Chloride [Moles/volume] in Serum or Bjgwwp37-292KpznsgrgwFort Hamilton HospitalCreatinine [Mass/volume] in Serum or PlasmaOrdered By: Richard Mohan on 37-76-3505Shwdcctpnq [Mass/Vol]0.71 mg/dL0.60-1.20[facility] HospitalCreatinine [Mass/Vol]Creatinine [Mass/volume] in Serum or Plasma0.60-1.20[facility] Eosinophils Auto (Bld) [#/Vol]Ordered By: Richard Mohan on 08-12-2024 Eosinophils (Bld) [#/Vol]0.1 10*3/uL0.0-0.45[facility] Eosinophils (Bld) [#/Vol]Automated eosinophil count0.0-0.45[facility] HospitalEosinophils/100 WBC Auto (Bld)Ordered By: Richard Mohan on 61-53-8455Gwiyjxtbvvr/100 WBC (Bld)0.7 %.[facility] Eosinophils/100 WBC (Bld)Automated eosinophil %.[facility] HospitalErythrocyte distribution width Auto (RBC) [Ratio]Ordered By: Richard Mohan on 39-54-3099Fzsdurdfpxg distribution width (RBC) [Ratio]15.0 % 11.9-15.3FMercy Health Urbana HospitalErythrocyte distribution width (RBC) [Ratio]Erythrocyte distribution width [Ratio] by Automated count11.9-15.3 [facility] HospitalGlobulin Calc (S) [Mass/Vol]Ordered By: Richard Mohan on 71-48-7028Izpptnll (S) [Mass/Vol]2.8 g/dLFort Hamilton HospitalGlobulin (S) [Mass/Vol]Serum globulin measurement by calculation (mass/volume)[facility] HospitalGlucose [Mass/volume] in Serum or PlasmaOrdered By: Richard Mohan on 93-46-3979Iuvldzq [Mass/Vol]95 mg/pP39-485 [facility] HospitalComment on above:ADA recommended reference rangeRandom Glucose Reference Range is dependent on time and content of last meal. Glucose of more than 200 mg/dL in a nonstressed, ambulatory subject supports the diagnosisof Diabetes Mellitus.Glucose [Mass/Vol]Glucose [Mass/volume] in Serum or Pcghek43-851VvetkaaojFort Hamilton HospitalComment on above:ADA recommended reference rangeRandom Glucose Reference Range is dependent on time and content of last meal. Glucose of more than 200 mg/dL in a nonstressed, ambulatory subject supports the diagnosisof Diabetes Mellitus. Hematocrit Auto (Bld) [Volume fraction]Ordered By: Richard Mohan on 41-94-9032Xbfdacxmve (Bld) [Volume fraction]31.9 %Low34.0-46.4FMercy Health Urbana HospitalHematocrit (Bld) [Volume fraction]Hematocrit [Volume Fraction] of Blood by Automated ynuepMqr01.0-46.4FMercy Health Urbana HospitalHemoglobin [Mass/volume] in BloodOrdered By: Richard Mohan on 21-67-0829Hvsizgoooc (Bld) [Mass/Vol]10.7 g/dLLow11.8-15.4FMercy Health Urbana HospitalHemoglobin (Bld) [Mass/Vol]Hemoglobin [Mass/volume] in CohraVeo19.8-15.4FMercy Health Urbana HospitalINR in Platelet poor plasma by Coagulation assayOrdered By: Richard Mohan on 62-23-0599QQG Coag (PPP) [Relative time]1.1 {INR}[facility] HospitalComment on above:INR Therapeutic Range A) Pre- and Peroperative OAT started two weeks before surgery. NOT HIP SURGERY: 1.5 - 2.5 HIP SURGERY: 2 - 3B) Primary and secondary prevention of venous THROMBOSIS: 2 - 3C) Active venous thrombosis, pulmonary embolismand prevention of recurrent venous thrombosis: 2 - 3D) Prevention of arterial thromboembolismincluding patients with mechanical heart valves: 3 - 4.5INR Coag (PPP) [Relative time]INR in Platelet poor plasma by Coagulation assayFort Hamilton Hospital Comment on above:INR Therapeutic Range A) Pre- and Peroperative OAT started two weeks before surgery. NOT HIP SURGERY: 1.5 - 2.5 HIP SURGERY: 2 - 3B) Primary and secondary prevention of venous THROMBOSIS: 2 - 3C) Active venous thrombosis, pulmonary embolismand prevention of recurrent venous thrombosis: 2 - 3D) Preve ntion of arterial thromboembolismincluding patients with mechanical heart valves: 3 - 4.5Leukocytes [#/volume] corrected for nucleated erythrocytes in Blood by Automated counOrdered By: Richard Mohan on 89-80-1487CGQ corrected for nucl RBC Auto (Bld) [#/Vol]7.5 10*3/uL3.8-11.6FMercy Health Urbana HospitalWBC corrected for nucl RBC Auto (Bld) [#/Vol]Leukocytes [#/volume] corrected for nucleated erythrocytes in Blood by Automated coun3.8-11.6FMercy Health Urbana HospitalLymphocytes Auto (Bld) [#/Vol]Ordered By: Richard Mohan on 53-98-7294Smundcmbjsh (Bld) [#/Vol]1.0 10*3/uL1.00-4.8[facility] HospitalLymphocytes (Bld) [#/Vol]Lymphocytes [#/volume] in Blood by Automated count1.00-4.8[facility] HospitalLymphocytes/100 WBC Auto (Bld)Ordered By: Richard Mohan on 12-30-2686Omuqaslslmn/100 WBC (Bld) 13.2 %.[facility] HospitalLymphocytes/100 WBC (Bld)Lymphocytes/100 leukocytes in Blood by Automated count.[facility] Auto (RBC) [Entitic mass]Ordered By: Richard Mohan on 44-57-6160AYI (RBC) [Entitic mass]31.1 pg24.7-34.3FPaulding [facility] (RBC) [Entitic mass]MCH [Entitic mass] by Automated count24.7-34.3FSelect Medical Specialty [facility], Inc Auto (RBC) [Mass/Vol]Ordered By: Richard Mohan on 62-93-6712CIAX (RBC) [Mass/Vol]33.4 g/dL32.0-35.0[facility] HospitalHC (RBC) [Mass/Vol]MCHC [Mass/volume] by Automated count32.0-35.0 [facility] Auto (RBC) [Entitic vol]Ordered By: Richard Mohan on 09-37-2988MJJ (RBC) [Entitic vol]92.9 nC82-535RyijfraraFort Hamilton HospitalMCV (RBC) [Entitic vol]MCV [Entitic volume] by Automated count 80-100[facility] HospitalMonocyte distribution width [Entitic volume] in Blood by AutomatedOrdered By: Richard Mohan on 11-77-5637Teusjmac distribution width Auto (Bld) [Entitic vol]27.47 %High0.00-20.00[facility] HospitalComment on above:For adults in ED, MDW > 20.0 may be associated with a higher risk of sepsis during the first 12 hrs of hospital admissionMonocyte distribution width Auto (Bld) [Entitic vol]Monocyte distribution width [Entitic volume] in Blood by AutomatedHigh0.00-20.00[facility] HospitalComment on above:For adults in ED, MDW > 20.0 may be associated with a higher risk of sepsis during the first 12 hrs of hospital admissionMonocytes Auto (Bld) [#/Vol]Ordered By: Richard Mohan on 08-12-2024 Monocytes (Bld) [#/Vol]0.6 10*3/uL0.0-0.8[facility] Monocytes (Bld) [#/Vol]Automated blood monocyte count0.0-0.8[facility] HospitalMonocytes/100 WBC Auto (Bld)Ordered By: Richard Mohan on 27-80-7236Zgbkvodsf/100 WBC (Bld)7.8 %.[facility] Monocytes/100 WBC (Bld)Automated monocyte %.[facility] Natriuretic peptide B [Mass/Vol]Ordered By: Richard Mohan on 08-12-2024 Natriuretic peptide B (Bld) [Mass/Vol]348.0 pg/mLHigh5-100[facility] HospitalNatriuretic peptide B (Bld) [Mass/Vol]BNP ser/plasHigh5-100 [facility] HospitalNeutrophils Auto (Bld) [#/Vol]Ordered By: Richard Mohan on 41-48-2874Ewcmapfntqn (Bld) [#/Vol]5.9 10*3/uL1.8-7.7 [facility] HospitalNeutrophils (Bld) [#/Vol]Neutrophils [#/volume] in Blood by Automated count1.8-7.7FMercy Health [facility] Neutrophils/100 WBC Auto (Bld)Ordered By: Richard Mohan on 08-12-2024 Neutrophils/100 WBC (Bld)78.0 %.[facility] HospitalNeutrophils/100 WBC (Bld)Automated neutrophil %.[facility] HospitalNo Panel InformationOrdered By: Richard Mohan on 28-44-1157Rkhxoronx GFR (CKD-EPI)> 60.0 mL/MinFort Hamilton HospitalPharmacy Creatinine Clearance (Chem 86.52[facility] HospitalNucleated erythrocytes [Presence] in Blood by Automated countOrdered By: Richard Mohan on 51-06-8813Ngpujgjzm RBC Auto Ql (Bld)0.1 /100{WBC}0-0.5FMercy Health Urbana HospitalNucleated RBC Auto Ql (Bld)Nucleated erythrocytes [Presence] in Blood by Automated count0-0.5 [facility] HospitalPlatelet mean volume Auto (Bld) [Entitic vol] Ordered By: Richard Mohan on 22-43-1912Wkzmcehz mean volume (Bld) [Entitic vol]8.5 fL6.3-10.7FMercy Health Urbana HospitalPlatelet mean volume (Bld) [Entitic vol]Platelet mean volume [Entitic volume] in Blood by Automated count 6.3-10.7FMercy Health Urbana HospitalPlatelets Auto (Bld) [#/Vol]Ordered By: Richard Mohan on 68-54-4360Kmltftmxt (Bld) [#/Vol]191 10*3/eW248-650 [facility] HospitalPlatelets (Bld) [#/Vol]Platelets [#/volume] in Blood by Automated kdvao741-165PbqxxvthvFort Hamilton HospitalPotassium [Moles/volume] in Serum or PlasmaOrdered By: Richard Mohan on 08-12-2024 Potassium [Moles/Vol]3.9 mmol/L3.5-5.1FMercy Health Urbana HospitalPotassium [Moles/Vol]Potassium [Moles/volume] in Serum or Plasma3.5-5.1FMercy Health Urbana HospitalProtein [Mass/volume] in Serum or PlasmaOrdered By: Richard Mohan on 42-17-4016Iyuhzfu [Mass/Vol]6.7 g/dL6.4-8.9[facility] HospitalProtein [Mass/Vol]Protein [Mass/volume] in Serum or Plasma6.4-8.9 [facility] HospitalProthrombin time (PT)Ordered By: Richard Mohan on 99-19-8140GQ Coag (PPP) [Time]12.2 s9.0-12.9[facility] HospitalComment on above:A hematocrit value greater than 55% may lead to inaccurate results in coagulation testing. Patientshaving hematocrit values >55% require a special collection tube for coagulation studies. Please contact the laboratory at [phone] for redraw instructions.PT Coag (PPP) [Time] Prothrombin time (PT)9.0-12.9[facility] HospitalComment on above:A hematocrit value greater than 55% may lead to inaccurate results in coagulation testing. Patientshaving hematocrit values >55% require a special collection tube for coagulation studies. Please contact the laboratory at [phone] for redraw instructions.RBC Auto (Bld) [#/Vol]Ordered By: Richard Mohan on 80-17-7690TOU (Bld) [#/Vol]3.44 10*6/uLLow3.60-5.00[facility] HospitalRBC (Bld) [#/Vol]Erythrocytes [#/volume] in Blood by Automated countLow 3.60-5.00[facility] Hospitalerum or plasma albumin/globulin mass ratioOrdered By: Richard Mohan on 52-45-1924Qndfbmk/Globulin [Mass ratio]1.4 {ratio}[facility] HospitalAlbumin/Globulin [Mass ratio]Serum or plasma albumin/globulin mass ratioKeenan Private Hospitalerum or plasma anion gap determinationOrdered By: Richard Mohan on 04-71-1803Plbqv gap [Moles/Vol]11.3 mmol/L6.0-15.0[facility] HospitalAnion gap [Moles/Vol]Serum or plasma anion gap determination6.0-15.0[facility] Hospitalerum or plasma non-glucuronidated bilirubin measurement (mass/volume)Ordered By: Richard Mohan on 28-31-5389Qymefxcgc.indirect [Mass/Vol]0.4 mg/dLFort Hamilton HospitalBilirubin.indirect [Mass/Vol]Serum or plasma non-glucuronidated bilirubin measurement (mass/volume) [facility] Hospitalodium [Moles/volume] in Serum or PlasmaOrdered By: Richard Mohan on 00-16-3396Svnyls [Moles/Vol]139 mmol/D252-771MgpwjrzgtKeenan Private Hospitalodium [Moles/Vol]Sodium [Moles/volume] in Serum or Mmdszt821-423MsmyfitbqFort Hamilton HospitalTroponin I.cardiac [Mass/volume] in Serum or Plasma by Detection limit <= 0.01 ng/Ordered By: Richard Mohan on 86-46-1623Eolzjodx I.cardiac DL <= 0.01 ng/mL [Mass/Vol]5.2 pg/mL0.0-15.0 [facility] HospitalTroponin I.cardiac DL <= 0.01 ng/mL [Mass/Vol] Troponin I.cardiac [Mass/volume] in Serum or Plasma by Detection limit <= 0.01 ng/0.0-15.0[facility] HospitalUrea nitrogen [Mass/volume] in Serum or PlasmaOrdered By: Richard Mohan on 30-46-4866Zbkj nitrogen [Mass/Vol]9 mg/dL06-25[facility] HospitalUrea nitrogen [Mass/Vol]Urea nitrogen [Mass/volume] in Serum or Plasma06-25[facility] HospitalWBC Auto (Bld) [#/Vol]Ordered By: Richard Mohan on 12-02-1601MGG (Bld) [#/Vol]7.5 10*3/uL3.8-11.6FMercy Health Urbana HospitalWBC (Bld) [#/Vol]Leukocytes [#/volume] in Blood by Automated count3.8-11.[facility] aPTT in Platelet poor plasma by Coagulation assayOrdered By: Richard Mohan on 77-90-0920oPKP Coag (PPP) [Time]Activated partial thromboplastin time (aPTT) in platelet poor plasma by coagulation a25.1-36.5FMercy Health [facility] Comment on above:A hematocrit value greater than 55% may lead to inaccurate results in coagulation testing. Patientshaving hematocrit values >55% require a special collection tube for coagulation studies. Please contact the laboratory at [phone] for redraw instructions.Alanine aminotransferase [Enzymatic activity/volume] in Serum or PlasmaOrdered By: Fartun Tran on 09-68-2368ANW [Catalytic activity/Vol]18 U/LFort Hamilton HospitalALT [Catalytic activity/Vol]Alanine aminotransferase [Enzymatic activity/volume] in Serum or PlasmaFort Hamilton HospitalAlbumin [Mass/volume] in Serum or Plasma by Bromocresol green (BCG) dye binding methoOrdered By: Fartun Tran on 71-03-2007Rnketol BCG dye [Mass/Vol]3.7 g/dL3.5-5.7FMercy Health Urbana HospitalAlbumin BCG dye [Mass/Vol]Albumin [Mass/volume] in Serum or Plasma by Bromocresol green (BCG) dye binding metho3.5-5.7FMercy Health Urbana HospitalAlkaline phosphatase [Enzymatic activity/volume] in Serum or PlasmaOrdered By: Obluh Hernandezr on 12-88-8080TEA [Catalytic activity/Vol]57 U/L09-091QxchoxcvlFort Hamilton HospitalALP [Catalytic activity/Vol]Alkaline phosphatase [Enzymatic activity/volume] in Serum or Jcccco47-565VssnysewgFort Hamilton HospitalAspartate aminotransferase [Enzymatic activity/volume] in Serum or PlasmaOrdered By: Obluh Zavalaomar on 62-61-4916AMS [Catalytic activity/Vol]20 U/K89-93WyncbdwauFort Hamilton HospitalAST [Catalytic activity/Vol]Aspartate aminotransferase [Enzymatic activity/volume] in Serum or Fspsmg34-68ZqyaqghipFort Hamilton HospitalBasophils Auto (Bld) [#/Vol]Ordered By: Fartun Hernandezr on 10-93-5593Vwlvwvyhx (Bld) [#/Vol]0.0 10*3/uL0.0-0.2 [facility] HospitalBasophils (Bld) [#/Vol]Automated basophil count 0.0-0.2FMercy Health Urbana HospitalBasophils/100 WBC Auto (Bld)Ordered By: Fartun Zavalaomar on 40-76-1873Wscqdgorv/100 WBC (Bld)0.3 %.[facility] HospitalBasophils/100 WBC (Bld)Automated basophil %.[facility] HospitalBilirubin.total [Mass/volume] in Serum or PlasmaOrdered By: Fartun Tran on 95-55-8439Srtanjmos [Mass/Vol]0.4 mg/dL0.3-1.0[facility] HospitalBilirubin [Mass/Vol]Bilirubin.total [Mass/volume] in Serum or Plasma0.3-1.0[facility] HospitalBlood estimated average glucose determination by estimation from glycated hemoglobinOrdered By: Fartun Tran on 09-03-6333Ydhepro glucose Estimated from glycated hemoglobin (Bld) [Mass/Vol]Glucose mean value [Mass/volume] in Blood Estimated from glycated hemoglobinFort Hamilton HospitalCalcium [Mass/volume] in Serum or PlasmaOrdered By: Fartun Zavalaomar on 06-35-0641Anzgyvb [Mass/Vol]8.4 mg/dLLow 8.6-10.3FMercy Health Urbana HospitalCalcium [Mass/Vol]Calcium [Mass/volume] in Serum or PlasmaLow8.6-10.3FMercy Health U[facility]ana HospitalCarbon dioxide, total [Moles/volume] in Serum or PlasmaOrdered By: Obluh Zavalaomar on 08-11-2024 CO2 [Moles/Vol]25.1 mmol/L21.0-31.0[facility] HospitalCO2 [Moles/Vol]Carbon dioxide, total [Moles/volume] in Serum or Xbduff35.0-31.0 [facility] HospitalChloride [Moles/volume] in Serum or Plasma Ordered By: Fartun Hernandezr on 06-62-8889Inrordfb [Moles/Vol]104 mmol/L98-107 [facility] HospitalChloride [Moles/Vol]Chloride [Moles/volume] in Serum or Jsyovc63-978EbzvwzfmhFort Hamilton HospitalCholesterol [Mass/volume] in Serum or PlasmaOrdered By: Obluh Zavalaomar on 14-95-7091Stpyspafmdu [Mass/Vol]141 mg/hW057-738PzjwctbgkFort Hamilton HospitalComment on above:Chol less than 200 mg/dl low riskChol 201-239 mg/dl borderline riskChol 240 mg/dl and greater high riskCholesterol [Mass/Vol]Cholesterol [Mass/volume] in Serum or Eilpta540-990DizzhfhcaFort Hamilton HospitalComment on above:Chol less than 200 mg/dl low riskChol 201-239 mg/dl borderline riskChol 240 mg/dl and greater high riskCholesterol in HDL [Mass/volume] in Serum or PlasmaOrdered By: Obluh Zavalaomar on 81-67-5383Qhejvgxymxw in HDL [Mass/Vol]Serum or plasma high density lipoprotein (HDL) cholesterol axncbttdsrg81-31UsyajxzsyFort Hamilton Hospital Comment on above:HDL CHOL ATP-III CLASSIFICATION Cardiovascular RiskHDL > or equal to 60 mg/dL LOWHDL < 40 mg/dL HIGHCholesterol in LDL Calc [Mass/Vol] Ordered By: Obyoselindasally Zavalaomar on 65-34-5032Sagyjvfkmoo in LDL [Mass/Vol]73 mg/dL 0-100[facility] HospitalComment on above:LDL ATP III CLASSIFICATIONLDL less than 100 mg/dL OptimalLDL 100-129 mg/dL Near or above wznayktRTY132-681 mg/dL Borderline highLDL 160-189 mg/dL HighLDL greater than 189 mg/dL Very highCholesterol in LDL [Mass/Vol]Cholesterol in LDL [Mass/volume] in Serum or Plasma by calculation0-100[facility] HospitalComment on above:LDL ATP III CLASSIFICATIONLDL less than 100 mg/dL OptimalLDL 100-129 mg/dL Near or above ygqxrduTHL700-856 mg/dL Borderline highLDL 160-189 mg/dL HighLDL greater than 189 mg/dL Very highCholesterol in VLDL Calc [Mass/Vol] Ordered By: Liliasally Tran on 12-96-3853Iuvqojhrome in VLDL [Mass/Vol]17 mg/dL [facility] HospitalCholesterol in VLDL [Mass/Vol]Cholesterol in VLDL [Mass/volume] in Serum or Plasma by calculationFort Hamilton HospitalCreatinine [Mass/volume] in Serum or PlasmaOrdered By: Lilialake [facility] David on 85-12-6460Jnijmuwleg [Mass/Vol]0.98 mg/dL0.60-1.20[facility] HospitalCreatinine [Mass/Vol]Creatinine [Mass/volume] in Serum or Plasma0.60-1.20 [facility] HospitalEosinophils Auto (Bld) [#/Vol]Ordered By: Fartun Hernandez on 50-79-2301Paifjehfall (Bld) [#/Vol]0.0 10*3/uL0.0-0.45 [facility] HospitalEosinophils (Bld) [#/Vol]Automated eosinophil count0.0-0.45[facility] HospitalEosinophils/100 WBC Auto (Bld) Ordered By: Fartun Hernandezr on 61-57-3798Jjjcnwmrmwa/100 WBC (Bld)0.1 %. [facility] HospitalEosinophils/100 WBC (Bld)Automated eosinophil % .[facility] HospitalErythrocyte distribution width Auto (RBC) [Ratio]Ordered By: Fartun Tran on 71-94-0674Bfakpgjkyat distribution width (RBC) [Ratio]15.0 %11.9-15.3FMercy Health [facility]ana HospitalErythrocyte distribution width (RBC) [Ratio]Erythrocyte distribution width [Ratio] by Automated count11.9-15.3FMercy Health [facility] HospitalGlobulin Calc (S) [Mass/Vol]Ordered By: Fartun Tran on 19-54-5124Bunxlzkt (S) [Mass/Vol]2.6 g/dLFort Hamilton HospitalGlobulin (S) [Mass/Vol]Serum globulin measurement by calculation (mass/volume)[facility] HospitalGlucose [Mass/volume] in Serum or PlasmaOrdered By: Fratun Tran on 08-11-2024 Glucose [Mass/Vol]91 mg/fM17-136LgdomocylFort Hamilton HospitalComment on above:ADA recommended reference rangeRandom Glucose Reference Range is dependent on time and content of last meal. Glucose of more than 200 mg/dL in a nonstressed, ambulatory subject supports the diagnosisof Diabetes Mellitus. Glucose [Mass/Vol]Glucose [Mass/volume] in Serum or Aupisp36-896KaynawmnxFort Hamilton HospitalComment on above:ADA recommended reference rangeRandom Glucose Reference Range is dependent on time and content of last meal. Glucose of more than 200 mg/dL in a nonstressed, ambulatory subject supports the diagnosisof Diabetes Mellitus.Glucose mean value [Mass/volume] in Blood Estimated from glycated hemoglobinOrdered By: Fartun Tran on 08-11-2024 Average glucose Estimated from glycated hemoglobin (Bld) [Mass/Vol]117 mg/dL [facility] HospitalHematocrit Auto (Bld) [Volume fraction]Ordered By: Fartun Tran on 04-97-7195Yzgiuztpjl (Bld) [Volume fraction]31.0 %Low 34.0-46.4FMercy Health Urbana HospitalHematocrit (Bld) [Volume fraction] Hematocrit [Volume Fraction] of Blood by Automated wvyciIof65.0-46.4FMercy Health [facility] HospitalHemoglobin A1c percentageOrdered By: Fartun Tran on 95-23-7490ZcR9c (Bld) [Mass fraction]5.7 %High4.3-5.6FMercy Health [facility]ana HospitalComment on above:Increased risk for diabetes: 5.7 - 6.4diabetes: >6.4glycemic control for adults with diabetes: <7.0Hemoglobin A1c/Hemoglobin.total in BloodOrdered By: Fartun Hernandezr on 24-45-2427YgM2q (Bld) [Mass fraction]Hemoglobin A1c percentageHigh4.3-5.6FMercy Health [facility] HospitalComment on above:Increased risk for diabetes: 5.7 - 6.4diabetes: >6.4glycemic control for adults with diabetes: <7.0Hemoglobin [Mass/volume] in BloodOrdered By: Fartun Tran on 90-03-9374Iauhdhffui (Bld) [Mass/Vol]10.5 g/dLLow11.8-15.4FMercy Health [facility]ana HospitalHemoglobin (Bld) [Mass/Vol] Hemoglobin [Mass/volume] in IjmlkFyg14.8-15.4FMer[facility] Health [facility] Leukocytes [#/volume] corrected for nucleated erythrocytes in Blood by Automated counOrdered By: Fartun Tran on 78-93-5746BDV corrected for nucl RBC Auto (Bld) [#/Vol]6.8 10*3/uL3.8-11.[address] [place], [place] [address]WBC corrected for nucl RBC Auto (Bld) [#/Vol]Leukocytes [#/volume] corrected for nucleated erythrocytes in Blood by Automated coun3.8-11.[address] [place] [address] Lymphocytes Auto (Bld) [#/Vol]Ordered By: Fartun Tran on 08-11-2024 Lymphocytes (Bld) [#/Vol]1.3 10*3/uL1.00-4.8[facility] Lymphocytes (Bld) [#/Vol]Lymphocytes [#/volume] in Blood by Automated count 1.00-4.8[facility] HospitalLymphocytes/100 WBC Auto (Bld)Ordered By: Fartun Hernandez on 12-32-8169Hmaaxpendyy/100 WBC (Bld)18.8 %.[facility] HospitalLymphocytes/100 WBC (Bld)Lymphocytes/100 leukocytes in Blood by Automated count.[facility]H Auto (RBC) [Entitic mass]Ordered By: Obluh Zavalaomar on 01-99-5414ATW (RBC) [Entitic mass] 31.0 pg24.7-34.3FCorey HospitalH (RBC) [Entitic mass]MCH [Entitic mass] by Automated count24.7-34.3FMercy Health [place] HospitalMCHC Auto (RBC) [Mass/Vol]Ordered By: Obyoselindasally Zavalaomar on 81-31-3706DPOA (RBC) [Mass/Vol]33.8 g/dL32.0-35.0[facility] HospitalHC (RBC) [Mass/Vol]MCHC [Mass/volume] by Automated count32.0-35.0[facility] HospitalMCV Auto (RBC) [Entitic vol]Ordered By: Obyoselindasally Zavalaomar on 75-03-6138ZXK (RBC) [Entitic vol]91.8 pE77-779FyonhrejvFort Hamilton Hospital MCV (RBC) [Entitic vol]MCV [Entitic volume] by Automated -504ZwvmwtvocFort Hamilton HospitalMonocytes Auto (Bld) [#/Vol]Ordered By: Obyoselindasally Zavalaomar on 62-26-9325Purxvodkz (Bld) [#/Vol]0.6 10*3/uL0.0-0.8[facility] HospitalMonocytes (Bld) [#/Vol]Automated blood monocyte count0.0-0.8[facility] HospitalMonocytes/100 WBC Auto (Bld)Ordered By: Obyoselindasally Zavalaomar on 98-46-5784Wzsdywdtz/100 WBC (Bld)9.1 %.[facility] Monocytes/100 WBC (Bld)Automated monocyte %.[facility] Neutrophils Auto (Bld) [#/Vol]Ordered By: Obyoselindasally Zavalaomar on 08-11-2024 Neutrophils (Bld) [#/Vol]4.9 10*3/uL1.8-7.7FMercy Health [facility] Hospital Neutrophils (Bld) [#/Vol]Neutrophils [#/volume] in Blood by Automated count 1.8-7.7FMercy Health Urbana HospitalNeutrophils/100 WBC Auto (Bld)Ordered By: Fartun Tran on 90-68-7212Klwhuummpow/100 WBC (Bld)71.7 %.[facility] HospitalNeutrophils/100 WBC (Bld)Automated neutrophil %.[facility] HospitalNo Panel InformationOrdered By: Fartun Tran on 98-56-3001Ntyufxjot GFR (CKD-EPI)> 60.0 mL/MinFort [facility] Hospital Pharmacy Creatinine Clearance (Chem65.91[facility] Nucleated erythrocytes [Presence] in Blood by Automated countOrdered By: Fartun Tran on 10-12-7103Rkipnjntb RBC Auto Ql (Bld)0.2 /100{WBC}0-0.5FMercy Health Urbana HospitalNucleated RBC Auto Ql (Bld)Nucleated erythrocytes [Presence] in Blood by Automated count0-0.5FMercy Health Urbana Hospital Platelet mean volume Auto (Bld) [Entitic vol]Ordered By: Fartun Tran on 44-03-0303Mextchkc mean volume (Bld) [Entitic vol]8.8 fL6.3-10.7FMercy Health Urbana HospitalPlatelet mean volume (Bld) [Entitic vol]Platelet mean volume [Entitic volume] in Blood by Automated count6.3-10.7FMercy Health Urbana HospitalPlatelets Auto (Bld) [#/Vol]Ordered By: Fartun Tran on 12-50-8680Wqteydhsx (Bld) [#/Vol]193 10*3/pW143-849OhcagtyumFort Hamilton HospitalPlatelets (Bld) [#/Vol]Platelets [#/volume] in Blood by Automated count 150-450[facility] HospitalPotassium [Moles/volume] in Serum or PlasmaOrdered By: Fartun Tran on 06-70-9406Ewulgsbwf [Moles/Vol]3.9 mmol/L 3.5-5.1FMercy Health Urbana HospitalPotassium [Moles/Vol]Potassium [Moles/volume] in Serum or Plasma3.5-5.1FMercy Health Urbana HospitalProtein [Mass/volume] in Serum or PlasmaOrdered By: Fartun Hernandezr on 08-11-2024 Protein [Mass/Vol]6.3 g/dLLow6.4-8.9[facility] HospitalProtein [Mass/Vol]Protein [Mass/volume] in Serum or PlasmaLow6.4-8.9[facility] HospitalRBC Auto (Bld) [#/Vol]Ordered By: Obluh Zavalaomar on 78-77-3371[place] (d) [#/Vol]3.37 10*6/uLLow3.60-5.00[facility] HospitalRBC (d) [#/Vol]Erythrocytes [#/volume] in Blood by Automated countLow3.60-5.00[facility] Hospitalerum or plasma albumin/globulin mass ratioOrdered By: Fartun Tran on 76-54-5952Sepgxck/Globulin [Mass ratio]1.4 {ratio}[facility] HospitalAlbumin/Globulin [Mass ratio]Serum or plasma albumin/globulin mass ratioKeenan Private Hospitalerum or plasma anion gap determinationOrdered By: Fartun Tran on 11-75-8873Nvwpz gap [Moles/Vol]10.8 mmol/L6.0-15.0[facility] HospitalAnion gap [Moles/Vol]Serum or plasma anion gap determination6.0-15.0[facility] Hospitalerum or plasma high density lipoprotein (HDL) cholesterol measurementOrdered By: Fartun Tran on 72-67-1444Osdbetsodrq in HDL [Mass/Vol]50 mg/yT12-74NxglyavikFort Hamilton HospitalComment on above:HDL CHOL ATP-III CLASSIFICATION Cardiovascular RiskHDL > or equal to 60 mg/dL LOWHDL < 40 mg/dL HIGHSerum or plasma total cholesterol/high density lipoprotein (HDL) cholesterol mass ratOrdered By: Fartun Tran on 08-11-2024 Cholesterol.total/Cholesterol in HDL [Mass ratio]2.8 {ratio}<5.0[facility] HospitalCholesterol.total/Cholesterol in HDL [Mass ratio]Serum or plasma total cholesterol/high density lipoprotein (HDL) cholesterol mass rat<5.0 [facility] Hospitalodium [Moles/volume] in Serum or PlasmaOrdered By: yoselinSacred Heart Hospital on 19-23-6125Hzafhj [Moles/Vol]136 mmol/H888-032YmbmzmqmpKeenan Private Hospitalodium [Moles/Vol]Sodium [Moles/volume] in Serum or Cpdtha884-029BbjivlqjfFort Hamilton HospitalThyrotropin [Units/volume] in Serum or PlasmaOrdered By: [facility] on 59-00-0507OTG Qn0.39 m[IU]/LLow 0.45-5.33[facility] HospitalTSH QnThyrotropin [Units/volume] in Serum or PlasmaLow0.45-5.33[facility] HospitalTriglyceride [Mass/volume] in Serum or PlasmaOrdered By: [facility] on 08-11-2024 Triglyceride [Mass/Vol]89 mg/dL0-149[facility] HospitalComment on above:TRIG ATP III CLASSIFICATIONTRIG less than 150 mg/dL NormalTRIG 150-199 mg/dL Borderline highTRIG 200-500 mg/dL High TRIG greater than 500 mg/dL Very highStandard traceable to the Center for Disease Conrtrol and Prevention (CDC) test method.Triglyceride [Mass/Vol]Triglyceride [Mass/volume] in Serum or Plasma 0-149[facility] HospitalComment on above:TRIG ATP III CLASSIFICATIONTRIG less than 150 mg/dL NormalTRIG 150-199 mg/dL Borderline highTRIG 200-500 mg/dL High TRIG greater than 500 mg/dL Very highStandard traceable to the Center for Disease Conrtrol and Prevention (CDC) test method. Troponin I.cardiac [Mass/volume] in Serum or Plasma by Detection limit <= 0.01 ng/Ordered By: [facility] on 44-64-4121Osajwbmk I.cardiac DL <= 0.01 ng/mL [Mass/Vol]4.6 pg/mL0.0-15.0[facility] HospitalTroponin I.cardiac DL <= 0.01 ng/mL [Mass/Vol]Troponin I.cardiac [Mass/volume] in Serum or Plasma by Detection limit <= 0.01 ng/0.0-15.0[facility] HospitalUrea nitrogen [Mass/volume] in Serum or PlasmaOrdered By: Fartun Tran on 78-01-7568Cwvh nitrogen [Mass/Vol]17 mg/dL06-25[facility] Urea nitrogen [Mass/Vol]Urea nitrogen [Mass/volume] in Serum or Plasma06-25 [facility] HospitalWBC Auto (Bld) [#/Vol]Ordered By: Obluh Zavalaomar on 86-04-2111UAZ (Bld) [#/Vol]6.8 10*3/uL3.8-11.6FMercy Health Urbana HospitalWBC (Bld) [#/Vol]Leukocytes [#/volume] in Blood by Automated count 3.8-11.6FMercy Health Urbana HospitalActivated partial thromboplastin time (aPTT) in platelet poor plasma by coagulation aOrdered By: Redd Salazar on 38-37-3927pWRW Coag (PPP) [Time]30.0 s25.1-36.5FMercy Health Urbana Hospital Comment on above:A hematocrit value greater than 55% may lead to inaccurate results in coagulation testing. Patientshaving hematocrit values >55% require a special collection tube for coagulation studies. Please contact the laboratory at [phone] for redraw instructions.Alanine aminotransferase [Enzymatic activity/volume] in Serum or PlasmaOrdered By: Redd Salazar on 08-10-2024 ALT [Catalytic activity/Vol]21 U/L7-52[facility] HospitalAlbumin [Mass/volume] in Serum or Plasma by Bromocresol green (BCG) dye binding metho Ordered By: Redd Salazar on 08-50-0632Ovbrmeh BCG dye [Mass/Vol]4.1 g/dL 3.5-5.7FMercy Health Urbana HospitalAlkaline phosphatase [Enzymatic activity/volume] in Serum or PlasmaOrdered By: Redd Salazar on 08-10-2024 ALP [Catalytic activity/Vol]66 U/E42-939GocrrzyzvFort Hamilton Hospital Aspartate aminotransferase [Enzymatic activity/volume] in Serum or PlasmaOrdered By: Redd Salazar on 99-39-6287QZE [Catalytic activity/Vol]22 U/L13-39 [facility] HospitalBasophils Auto (Bld) [#/Vol]Ordered By: Redd Salazar on 69-88-7779Uiyplmxko (Bld) [#/Vol]0.0 10*3/uL0.0-0.2 [facility] HospitalBasophils/100 WBC Auto (Bld)Ordered By: Redd Salazar on 63-28-6783Hhwxkdoic/100 WBC (Bld)0.6 %.[facility] HospitalBilirubin.direct [Mass/volume] in Serum or PlasmaOrdered By: Redd Salazar on 89-60-7900Thlsrjwpc.direct [Mass/Vol]0.10 mg/dL0.03-0.18 [facility] HospitalBilirubin.direct [Mass/Vol]Bilirubin.direct [Mass/volume] in Serum or Plasma0.03-0.18FMercy Health Urbana Hospital Bilirubin.total [Mass/volume] in Serum or PlasmaOrdered By: eRdd Salazar on 98-80-9152Clafgsebl [Mass/Vol]0.7 mg/dL0.3-1.0[facility] COVID CepheidOrdered By: Redd Salazar on 75-58-7345RBAY-CoV-2 (COVID-19) Ab IA QlPositiveAbnormalNegAshtabula General HospitalComment on above: This is a duplicate Cepheid Xpert Xpress CoV-2/Flu/RSV Plus RNA by RT-PCR result to be used for statistical tracking purpose only.SARS-CoV-2 (COVID-19) Ab IA Ql COVID CepheidAbnormalNegativeFort Hamilton HospitalComment on above: This is a duplicate Cepheid Xpert Xpress CoV-2/Flu/RSV Plus RNA by RT-PCR result to be used for statistical tracking purpose only.SARS-CoV-2 (COVID-19) RNA DEYSI+probe Ql (Unsp spec)[facility] HospitalCalcium [Mass/volume] in Serum or PlasmaOrdered By: Redd Salazar on 69-64-7626Txazmhz [Mass/Vol] 8.8 mg/dL8.6-10.3FMercy Health Urbana HospitalCarbon dioxide, total [Moles/volume] in Serum or PlasmaOrdered By: Redd Salazar on 53-65-4779MC6 [Moles/Vol]25.8 mmol/L21.0-31.0[facility] HospitalChloride [Moles/volume] in Serum or PlasmaOrdered By: Redd Salazar on 08-10-2024 Chloride [Moles/Vol]107 mmol/G41-147GusmrljwlFort Hamilton HospitalCreatine kinase [Enzymatic activity/volume] in Serum or PlasmaOrdered By: Redd Salazar on 24-96-2639OU [Catalytic activity/Vol]51 U/O99-321KqwxyzwhwFort Hamilton HospitalCK [Catalytic activity/Vol]Creatine kinase [Enzymatic activity/volume] in Serum or Rcorwu54-575EdmmjxmkgFort Hamilton Hospital Creatinine [Mass/volume] in Serum or PlasmaOrdered By: Redd Salazar on 01-94-7120Cttifemzua [Mass/Vol]0.89 mg/dL0.60-1.20[facility] HospitalEosinophils Auto (Bld) [#/Vol]Ordered By: Redd Salazar on 08-10-2024 Eosinophils (Bld) [#/Vol]0.1 10*3/uL0.0-0.45[facility] Eosinophils/100 WBC Auto (Bld)Ordered By: Redd Salazar on 08-10-2024 Eosinophils/100 WBC (Bld)0.7 %.[facility] HospitalErythrocyte distribution width Auto (RBC) [Ratio]Ordered By: Redd Salazar on 08-10-2024 Erythrocyte distribution width (RBC) [Ratio]14.8 %11.9-15.3FMercy Health Urbana HospitalGlobulin Calc (S) [Mass/Vol]Ordered By: Redd Salazar on 18-79-9501Jkpsjfod (S) [Mass/Vol]2.7 g/dLFort Hamilton Hospital Glucose [Mass/volume] in Serum or PlasmaOrdered By: Redd Salazar on 46-10-2854Pwxxqhz [Mass/Vol]97 mg/vP47-966RczxvhaqgFort [facility] Hospital Comment on above:ADA recommended reference rangeRandom Glucose Reference Range is dependent on time and content of last meal. Glucose of more than 200 mg/dL in a nonstressed, ambulatory subject supports the diagnosisof Diabetes Mellitus. Hematocrit Auto (Bld) [Volume fraction]Ordered By: Redd Salazar on 30-38-9844Yhrxwcvjrf (Bld) [Volume fraction]34.8 %34.0-46.4FMercy Health Urbana HospitalHemoglobin [Mass/volume] in BloodOrdered By: Redd Salazar on 27-65-0079Svczuodeja (Bld) [Mass/Vol]11.7 g/dLLow11.8-15.4FMercy Health Urbana HospitalINR in Platelet poor plasma by Coagulation assayOrdered By: Redd Salazar on 82-00-4507PGR Coag (PPP) [Relative time]1.0 {INR}[facility] HospitalComment on above:INR Therapeutic Range A) Pre- and Peroperative OAT started two weeks before surgery. NOT HIP SURGERY: 1.5 - 2.5 HIP SURGERY: 2 - 3B) Primary and secondary prevention of venous THROMBOSIS: 2 - 3C) Active venous thrombosis, pulmonary embolismand prevention of recurrent venous thrombosis: 2 - 3D) Prevention of arterial thromboembolismincluding patients with mechanical heart valves: 3 - 4.5INR Coag (PPP) [Relative time]INR in Platelet poor plasma by Coagulation assayFort Hamilton Hospital Comment on above:INR Therapeutic Range A) Pre- and Peroperative OAT started two weeks before surgery. NOT HIP SURGERY: 1.5 - 2.5 HIP SURGERY: 2 - 3B) Primary and secondary prevention of venous THROMBOSIS: 2 - 3C) Active venous thrombosis, pulmonary embolismand prevention of recurrent venous thrombosis: 2 - 3D) Preve ntion of arterial thromboembolismincluding patients with mechanical heart valves: 3 - 4.5Leukocytes [#/volume] corrected for nucleated erythrocytes in Blood by Automated counOrdered By: Redd Salazar on 39-38-9492WKH corrected for nucl RBC Auto (Bld) [#/Vol]7.6 10*3/uL3.8-11.6FMercy Health Urbana HospitalLipase [Enzymatic activity/volume] in Serum or PlasmaOrdered By: Redd Salazar on 46-06-1503Fluwzx [Catalytic activity/Vol]12.0 U/L11.0-82.0[facility] HospitalLipase [Catalytic activity/Vol]Lipase [Enzymatic activity/volume] in Serum or Bemevn42.0-82.0[facility] Lymphocytes Auto (Bld) [#/Vol]Ordered By: Redd Salazar on 08-10-2024 Lymphocytes (Bld) [#/Vol]0.6 10*3/uLLow1.00-4.8[facility] Lymphocytes/100 WBC Auto (Bld)Ordered By: Redd Salazar on 08-10-2024 Lymphocytes/100 WBC (Bld)8.2 %.[facility] HospitalMCH Auto (RBC) [Entitic mass]Ordered By: Redd Salazar on 39-74-1038VTK (RBC) [Entitic mass]30.8 pg24.7-34.3FMercy Health Urbana HospitalMCHC Auto (RBC) [Mass/Vol] Ordered By: Redd Salazar on 38-12-4636KZXX (RBC) [Mass/Vol]33.5 g/dL 32.0-35.0[facility] HospitalMCV Auto (RBC) [Entitic vol]Ordered By: Redd Salazar on 87-57-3396VMW (RBC) [Entitic vol]91.9 wD42-973TqidkawlfFort Hamilton HospitalMonocyte distribution width [Entitic volume] in Blood by AutomatedOrdered By: Redd Salazar on 98-02-1704Xryxosiq distribution width Auto (Bld) [Entitic vol]23.64 %High0.00-20.00[facility] Comment on above:For adults in ED, MDW > 20.0 may be associated with a higher risk of sepsis during the first 12 hrs of hospital admissionMonocyte distribution width Auto (Bld) [Entitic vol]Monocyte distribution width [Entitic volume] in Blood by AutomatedHigh0.00-20.00[facility] Comment on above:For adults in ED, MDW > 20.0 may be associated with a higher risk of sepsis during the first 12 hrs of hospital admissionMonocytes Auto (Bld) [#/Vol]Ordered By: Redd Salazar on 50-45-0092Bjerfabts (Bld) [#/Vol]0.3 10*3/uL0.0-0.8[facility] HospitalMonocytes/100 WBC Auto (Bld) Ordered By: Redd Salazar on 38-29-4622Qsojtwkcg/100 WBC (Bld)4.4 %. [facility] HospitalNatriuretic peptide B [Mass/Vol]Ordered By: Redd Salazar on 57-00-0139Uydqbndbikj peptide B (Bld) [Mass/Vol]158.0 pg/mL High5-100[facility] HospitalNatriuretic peptide B (Bld) [Mass/Vol] BNP ser/plasHigh5-100[facility] HospitalNeutrophils Auto (Bld) [#/Vol]Ordered By: Redd Salazar on 70-90-1636Mlnughnqxzn (Bld) [#/Vol]6.5 10*3/uL1.8-7.7FMercy Health Urbana HospitalNeutrophils/100 WBC Auto (Bld) Ordered By: Redd Salazar on 49-14-4219Badilrilogt/100 WBC (Bld)86.1 %. [facility] HospitalNo Panel InformationOrdered By: Redd Salazar on 48-66-6258Tyxbvgjto GFR (CKD-EPI)> 60.0 mL/MinFort Hamilton HospitalPharmacy Creatinine Clearance (Chem71.10[facility] HospitalNucleated erythrocytes [Presence] in Blood by Automated countOrdered By: Redd Salazar on 92-47-5178Yghuuerct RBC Auto Ql (Bld)0.1 /100{WBC}0-0.5 [facility] HospitalPlatelet mean volume Auto (Bld) [Entitic vol] Ordered By: Redd Salazar on 06-86-9092Iyddvvio mean volume (Bld) [Entitic vol]8.3 fL6.3-10.7FMercy Health Urbana HospitalPlatelets Auto (Bld) [#/Vol] Ordered By: Redd Salazar on 38-21-2682Hccbiidzw (Bld) [#/Vol]227 10*3/uL 150-450[facility] HospitalPotassium [Moles/volume] in Serum or PlasmaOrdered By: Redd Salazar on 01-46-6800Xlilvbrgf [Moles/Vol]4.4 mmol/L 3.5-5.1FMercy Health Urbana HospitalProtein [Mass/volume] in Serum or Plasma Ordered By: Redd Salazar on 17-22-6674Dvgwlxu [Mass/Vol]6.8 g/dL6.4-8.9 [facility] CenterProthrombin time (PT)Ordered By: Redd Salazar on 98-77-8211SY Coag (PPP) [Time]11.5 s9.0-12.9[facility] HospitalComment on above:A hematocrit value greater than 55% may lead to inaccurate results in coagulation testing. Patientshaving hematocrit values >55% require a special collection tube for coagulation studies. Please contact the laboratory at [phone] for redraw instructions.PT Coag (PPP) [Time] Prothrombin time (PT)9.0-12.9[facility] HospitalComment on above:A hematocrit value greater than 55% may lead to inaccurate results in coagulation testing. Patientshaving hematocrit values >55% require a special collection tube for coagulation studies. Please contact the laboratory at [phone] for redraw instructions.RBC Auto (Bld) [#/Vol]Ordered By: Redd Salazar on 91-66-5971NWS (Bld) [#/Vol]3.79 10*6/uL3.60-5.00[facility] HospitalRespiratory specimen influenza A virus, influenza B virus, respiratory syncytical virOrdered By: Redd Salazar on 89-86-8918MQOO-CoV-2 (COVID-19) RNA DEYSI+probe Ql (Unsp spec)Respiratory specimen influenza A virus, influenza B virus, respiratory syncytical virKeenan Private Hospitalerum or plasma albumin/globulin mass ratioOrdered By: Redd Salazar on 08-10-2024 Albumin/Globulin [Mass ratio]1.5 {ratio}[facility] Hospitalerum or plasma anion gap determinationOrdered By: Redd Salazar on 08-10-2024 Anion gap [Moles/Vol]9.6 mmol/L6.0-15.0[facility] Hospitalerum or plasma non-glucuronidated bilirubin measurement (mass/volume)Ordered By: Redd Salazar on 54-96-4277Wxdfyxtwb.indirect [Mass/Vol]0.6 mg/dLFort Hamilton HospitalBilirubin.indirect [Mass/Vol]Serum or plasma non- glucuronidated bilirubin measurement (mass/volume)[facility] Hospitalodium [Moles/volume] in Serum or PlasmaOrdered By: Redd Salazar on 25-21-0214Ppftyl [Moles/Vol]138 mmol/S024-524OpzekglqmFort Hamilton Hospital Troponin I.cardiac [Mass/volume] in Serum or Plasma by Detection limit <= 0.01 ng/Ordered By: Redd Salazar on 16-29-5470Kwedmclo I.cardiac DL <= 0.01 ng/mL [Mass/Vol]3.3 pg/mL0.0-15.0[facility] HospitalUrea nitrogen [Mass/volume] in Serum or PlasmaOrdered By: Redd Salazar on 39-37-4575Mppq nitrogen [Mass/Vol]16 mg/dL7-25[facility] HospitalWBC Auto (Bld) [#/Vol]Ordered By: Redd Salazar on 98-11-7495GPI (Bld) [#/Vol]7.6 10*3/uL 3.8-11.6FMercy Health Urbana HospitalaPTT in Platelet poor plasma by Coagulation assayOrdered By: Redd Salazar on 66-43-2749wDBH Coag (PPP) [Time]Activated partial thromboplastin time (aPTT) in platelet poor plasma by coagulation a25.1-36.5FMercy Health Urbana HospitalComment on above:A hematocrit value greater than 55% may lead to inaccurate results in coagulation testing. Patientshaving hematocrit values >55% require a special collection tube for coagulation studies. Please contact the laboratory at [phone] for redraw instructions.CBC W Auto Differential panel (Bld)on 90-03-4631Ajeyovqpi (Bld) [#/Vol]0.0 10*3/uLNOMS HealthcareBasophils/100 WBC (Bld)1 %Not Estab.NOMS HealthcareEosinophils (Bld) [#/Vol]0.1 10*3/uLNOMS HealthcareEosinophils/100 WBC (Bld)2 %Not Estab.[facility]OMS HealthcareErythrocyte distribution width (RBC) [Ratio] 13.1 %11.7 - 15.4 %[facility]OMS HealthcareHematocrit (Bld) [Volume fraction]37.0 %34.0 - 46.6 %[facility] HealthcareHemoglobin (Bld) [Mass/Vol]11.7 g/dL11.1 - 15.9 g/dLNOMS HealthcareImmature granulocytes (Bld) [#/Vol]0.0 10*3/uLNOMS HealthcareImmature granulocytes/100 WBC (Bld)0 %Not Estab.[facility] HealthcareLymphocytes (Bld) [#/Vol] 1.6 10*3/uLNOMS HealthcareLymphocytes/100 WBC (Bld)34 %Not Estab.[facility] MCH (RBC) [Entitic mass]30.5 pg26.6 - 33.0 pgNOParkland Health CenterMCHC (RBC) [Mass/Vol]31.6 g/dL31.5 - 35.7 g/dLNOParkland Health CenterMCV (RBC) [Entitic vol]97 fL79 - 97 fLNOOR HealthcareMonocytes (Bld) [#/Vol]0.3 10*3/uLNOMS Healthcare Monocytes/100 WBC (Bld)6 %Not Estab.[facility] HealthcareNeutrophils (Bld) [#/Vol]2.7 10*3/uLNOMS HealthcareNeutrophils/100 WBC (Bld)57 %Not Estab.[facility] Platelets (Bld) [#/Vol]298 10*3/uLNOMS HealthcareRBC (Bld) [#/Vol]3.83 10*6/uL [facility] HealthcareWBC (Bld) [#/Vol]4.7 10*3/uLNOOR HealthcareComprehensive metabolic panelon 89-97-7456Vvgponc [Mass/Vol]4.1 g/dL3.9 - 4.9 g/dLNOOR HealthcareALP [Catalytic activity/Vol]75 U/LNOMS HealthcareALT [Catalytic activity/Vol]15 U/LNOMS HealthcareAST [Catalytic activity/Vol]18 U/LNOMS HealthcareBilirubin [Mass/Vol]0.3 mg/dL0.0 - 1.2 mg/dLNOOR HealthcareCalcium [Mass/Vol]9.2 mg/dL8.7 - 10.3 mg/dLNOOR HealthcareChloride [Moles/Vol]105 mmol/L 96 - 106 mmol/LNOMS HealthcareCO2 [Moles/Vol]24 mmol/L20 - 29 mmol/LNOMS HealthcareCreatinine [Mass/Vol]0.93 mg/dL0.57 - 1.00 mg/dLNOMS Healthcare GFR/1.73 sq M.predicted among non-blacks MDRD (S/P/Bld) [Vol rate/Area]69 mL/min/{1.73_m2}59 - PINF mL/min/1.73NOParkland Health CenterGlobulin (S) [Mass/Vol]2.4 g/dL1.5 - 4.5 g/dLNOOR HealthcareGlucose [Mass/Vol]95 mg/dL70 - 99 mg/dLNOOR HealthcarePotassium [Moles/Vol]4.2 mmol/L3.5 - 5.2 mmol/LNOMS HealthcareProtein [Mass/Vol]6.5 g/dL6.0 - 8.5 g/dLNOOR HealthcareSodium [Moles/Vol]142 mmol/L134 - 144 mmol/LNOMS HealthcareUrea nitrogen [Mass/Vol]11 mg/dL8 - 27 mg/dLNOParkland Health CenterUrea nitrogen/Creatinine [Mass ratio]12 mg/mg12 - 28NOParkland Health Center Lipid 1996 panelon 58-64-9591Xijeuntvvtz [Mass/Vol]165 mg/dL100 - 199 mg/dLNOParkland Health CenterCholesterol in HDL [Mass/Vol]59 mg/dL39 - PINF mg/dLNOParkland Health Center Cholesterol in LDL [Mass/Vol]89 mg/dL0 - 99 mg/dLNOParkland Health CenterCholesterol in VLDL [Mass/Vol]17 mg/dL5 - 40 mg/dLCameron Regional Medical CenterTriglyceride [Mass/Vol]93 mg/dL0 - 149 mg/dLCameron Regional Medical CenterMicroalbumin/Creatinine ratio panel (U)on 52-49-0072Cpuwlen DL <= 20 mg/L (U) [Mass/Vol]3.2 ug/mLNot Estab.[facility] Albumin/Creatinine (U) [Mass ratio]3NOOR HealthcareComment on above:Normal: 0 - 29 Moderately increased: 30 - 300 Severely increased: >300 Creatinine (U) [Mass/Vol]102.0 mg/dLNot Estab.[facility] HealthcareNo Panel Informationon 26-75-6533Pkfhxxeqv at: 01 - [facility] [id number] [employer] Operator: Rodrigo Pablo PhD, Phone: [phone] HealthcareUr Microscopic Reflexon 64-24-1627Olxixjsv LM.HPF (Urine sed) [#/Area]Moderate AbnormalNone seen/FewNOMS HealthcareCasts LM Ql (Urine sed)None seenNone seen /lpfNOMS HealthcareEpithelial cells LM.HPF (Urine sed) [#/Area]/[HPF]Abnormal NOMS HealthcareInterpretation and review of laboratory resultsAbnormalNOMS HealthcareRBC LM.HPF (Urine sed) [#/Area]0-2NOMS HealthcareWBC LM.HPF (Urine sed) [#/Area]0-5NOMS HealthcareUrinalysis complete panel (U)on 08-06-2024 Appearance (U)ClearClearNOMS HealthcareBilirubin Ql (U)NegativeNegativeNOMS HealthcareColor (U)YellowYellowNOMS HealthcareGlucose Ql (U)NegativeNegativeNOMS HealthcareHemoglobin Ql (U)NegativeNegativeNOMS HealthcareKetones Ql (U) NegativeNegativeNOMS HealthcareLeukocyte esterase Test strip Ql (U)Negative NegativeNOMS HealthcareMicroscopic observation LM Nom (Urine sed)CommentNOMS HealthcareComment on above:Microscopic follows if indicated.Microscopic observation LM Nom (Urine sed)See below:NOMS HealthcareComment on above: Microscopic was indicated and was performed.Nitrite Ql (U)NegativeNegativeNOMS HealthcarepH (U)5.5 [pH]5.0 - 7.5NOMS HealthcareProtein Ql (U)Negative Negative/TraceNOMS HealthcareSpecific gravity (U) [Rel density]1.0191.005 - 1.030NOMS HealthcareUrobilinogen (U) [Mass/Vol]0.2 mg/dL0.2 - 1.0 mg/dLNOMS HealthcareEMG 2 Extremitieson 84-72-1426Nppzzmrqharyjm severeNOMS HealthcareEMG 2 ExtremitiesOrdered By: Jazmine Benoit on 88-49-9129XZ[facility] Work Phone: NVC 9-10 Nerveson 36-17-4771Upemmypmvpuemg severeNOMS HealthcareNOMS HealthcareUS Heart TransthoracicOrdered By: Tata Faulkner on 27-72-6801Cwwfos Valve Area by Continuity of Peak Velocity1.78 wv0GgkorvgteaMercy Health Defiance Hospital Work Phone: Aortic Valve Area by Continuity of VTI1.65 cm2 [facility] Work Phone: AV mn grad5.0mmHgUnChildren's Hospital of [facility] Work Phone: AV pk grad8.6mmHThe [facility] Work Phone: AV pk vel1.47 m/[facility] Work Phone: LV A4C EF39.0UnChildren's Hospital of [facility] Work Phone: [phone] cmMercy Health Defiance Hospital Work Phone: LVOT diam2.00 cmMer[facility] Work Phone: [phone] avg E/e' ratio15.20UnChildren[facility] Work Phone: [phone] E/A ratio1.13UnChildren[facility] Work Phone: [phone] Health Def[facility] Hospital Work Phone: [facility] Work Phone: US Heart Transthoracicon 02-20-[address], [address] [place] [address] TRANSTHORACIC ECHOCARDIOGRAM REPORT Patient Name: ADELA Viera Physician: [id number] Tata Faulkner MD Study Date: 02/20/2024 Ordering Provider: [id number] JAMES MEJIA MRN/PID: [id number] Fellow: Nurse: Date of /Age: 605/13/1960 / 63 years Dining Service Supervisor: Radha Santos RDCS, RVT Gender: F Additional Staff: Height: 157.48 cm Admit Date: Weight: 99.79 kg Admission Status: BSA / BMI: 1.99 m2 / 40.24 kg/m2 Department Location: [facility] Blood Pressure: 100 /70 mmHg Study Type: TRANSTHORACIC ECHO (TTE) COMPLETE Diagnosis/ICD: Atherosclerotic heart disease of [place] coronary artery without angina pectoris-I25.10; Coronary angioplasty status (PTCA)-Z98.61; Ischemic cardiomyopathy-I25.5; Essential (primary) hypertension-I10; Other fatigue-R53.83; Other abnormalities of breathing-R06.89 Indication: PA and PTCA-01/2021 and 08/2021, Chest Pain, Former Smoker, Obesity CPT Codes: Echo Complete w Full Doppler-[id number] Study Detail: The following Echo studies were performed: 2D, M-Mode, Doppler and color flow. PHYSICIAN INTERPRETATION: Left Ventricle: Left ventricular systolic function is low normal, with an estimated ejection fraction of 50-55%. There are no regional wall motion abnormalities. The left ventricular cavity size is normal. Spectral Doppler shows a normal pattern of left ventricular diastolic filling. Left Atrium: The left atrium is normal in size. Right Ventricle: The right ventricle is normal in size. There is normal right ventricular global systolic function. Right Atrium: The right atrium is normal in size. Aortic Valve: The aortic valve appears structurally normal. There is no evidence of aortic valve regurgitation. The peak instantaneous gradient of the aortic valve is 8.6 mmHg. The mean gradient of the aortic valve is 5.0 mmHg. Mitral Valve: The mitral valve is mild to moderately thickened. There is moderate mitral valve regurgitation. Tricuspid Valve: The tricuspid valve is structurally normal. No evidence of tricuspid regurgitation. Pulmonic Valve: The pulmonic valve is structurally normal. There is no indication of pulmonic valveregurgitation. Pericardium: There is no pericardial effusion noted. Aorta: The aortic root is normal. CONCLUSIONS: 1. Left ventricular systolic function is low normal with a 50-55% estimated ejection fraction. 2. Moderate mitral valve regurgitation. 3. No significant changes noted when compared to prior study. QUANTITATIVE DATA SUMMARY: 2D MEASUREMENTS: Normal Ranges: Ao Root d: 2.60 cm (2.0-3.7cm) LAs: 3.90 cm (2.7-4.0cm) RVIDd: 2.90 cm (0.9-3.6cm) IVSd: 0.90 cm (0.6-1.1cm) LVPWd: 0.90 cm (0.6-1.1cm) LVIDd: 4.90 cm (3.9-5.9cm) LVIDs: 3.50 cm LV Mass Index: 76.8 g/m2 LV % FS 28.6 % LV SYSTOLIC FUNCTION BY 2D PLANIMETRY (MOD): Normal Ranges: EF-A4C View: 39.0 % (>=55%) LV DIASTOLIC FUNCTION: Normal Ranges: MV Peak E: 1.21 m/s (0.7-1.2 m/s) MV Peak A: 1.07 m/s (0.42-0.7 m/s) E/A Ratio: 1.13 (1.0-2.2) MV lateral e' 0.08 m/s MV medial e' 0.05 m/s E/e' Ratio: 15.20 (<8.0) MITRAL VALVE: Normal Ranges: MV Vmax: 1.39 m/s (<=1.3m/s) MV peak P.7 mmHg (<5mmHg) MV mean P.0 mmHg (<48mmHg) MITRAL INSUFFICIENCY: Normal Ranges: MR Vmax: 479.00 cm/s dP/dt: 433 mmHg/s (>1200mmHg/sec) AORTIC VALVE: Normal Ranges: AoV Vmax: 1.47 m/s (<=1.7m/s) AoV Peak P.6 mmHg (<20mmHg) AoV Mean P.0 mmHg (1.7-11.5mmHg) LVOT Max Robert: 0.84 m/s (<=1.1m/s) AoV VTI: 35.10 cm (18-25cm) LVOT VTI: 18.40 cm LVOT Diameter: 2.00 cm (1.8-2.4cm) AoV Area, VTI: 1.65 cm2 (2.5-5.5cm2) AoV Area,Vmax: 1.78 cm2 (2.5-4.5cm2) AoV Dimensionless Index: 0.52 TRICUSPID VALVE/RVSP: Normal Ranges: Peak TR Velocity: 1.84 m/s RV Syst Pressure: 16.5 mmHg (< 30mmHg) PULMONIC VALVE: Normal Ranges: PV Max Robert: 0.6 m/s (0.6-0.9m/s) PV Max P.4 mmHg PIEDV (more content not included)...Tata Ramey MD - 02/20/[address], [address], [place] [address] TRANSTHORACIC ECHOCARDIOGRAM REPORT Patient Name: ADELA HOPKINS Reading Physician: [id number] Tata Faulkner MD Study Date: 02/20/2024 Ordering Provider: [id number] JAMES MEJIA MRN/PID: [id number] Fellow: Nurse: Date of /Age: 605/13/1960 / 63 years Dining Service Supervisor: Radha Santos RDCS, RVT Gender: F Additional Staff: Height: 157.48 cm Admit Date: Weight: 99.79 kg Admission Status: BSA / BMI: 1.99 m2 / 40.24 kg/m2 Department Location: [facility] Blood Pressure: 100 /70 mmHg Study Type: TRANSTHORACIC ECHO (TTE) COMPLETE Diagnosis/ICD: Atherosclerotic heart disease of [place] coronary artery without angina pectoris-I25.10; Coronary angioplasty status (PTCA)-Z98.61; Ischemic cardiomyopathy-I25.5; Essential (primary) hypertension-I10; Other fatigue-R53.83; Other abnormalities of breathing-R06.89 Indication: PA and PTCA-01/2021 and 08/2021, Chest Pain, Former Smoker, Obesity CPT Codes: Echo Complete w Full Doppler-[id number] Study Detail: The following Echo studies were performed: 2D, M-Mode, Doppler and color flow. PHYSICIAN INTERPRETATION: Left Ventricle: Left ventricular systolic function is low normal, with an estimated ejection fraction of 50-55%. There are no regional wall motion abnormalities. The left ventricular cavity size is normal. Spectral Doppler shows a normal pattern of left ventricular diastolic filling. Left Atrium: The left atrium is normal in size. Right Ventricle: The right ventricle is normal in size. There is normal right ventricular global systolic function. Right Atrium: The right atrium is normal in size. Aortic Valve: The aortic valve appears structurally normal. There is no evidence of aortic valve regurgitation. The peak instantaneous gradient of the aortic valve is 8.6 mmHg. The mean gradient of the aortic valve is 5.0 mmHg. Mitral Valve: The mitral valve is mild to moderately thickened. There is moderate mitral valve regurgitation. Tricuspid Valve: The tricuspid valve is structurally normal. No evidence of tricuspid regurgitation. Pulmonic Valve: The pulmonic valve is structurally normal. There is no indication of pulmonic valveregurgitation. Pericardium: There is no pericardial effusion noted. Aorta: The aortic root is normal. CONCLUSIONS: 1. Left ventricular systolic function is low normal with a 50-55% estimated ejection fraction. 2. Moderate mitral valve regurgitation. 3. No significant changes noted when compared to prior study. QUANTITATIVE DATA SUMMARY: 2D MEASUREMENTS: Normal Ranges: Ao Root d: 2.60 cm (2.0-3.7cm) LAs: 3.90 cm (2.7-4.0cm) RVIDd: 2.90 cm (0.9-3.6cm) IVSd: 0.90 cm (0.6-1.1cm) LVPWd: 0.90 cm (0.6-1.1cm) LVIDd: 4.90 cm (3.9-5.9cm) LVIDs: 3.50 cm LV Mass Index: 76.8 g/m2 LV % FS 28.6 % LV SYSTOLIC FUNCTION BY 2D PLANIMETRY (MOD): Normal Ranges: EF-A4C View: 39.0 % (>=55%) LV DIASTOLIC FUNCTION: Normal Ranges: MV Peak E: 1.21 m/s (0.7-1.2 m/s) MV Peak A: 1.07 m/s (0.42-0.7 m/s) E/A Ratio: 1.13 (1.0-2.2) MV lateral e' 0.08 m/s MV medial e' 0.05 m/s E/e' Ratio: 15.20 (<8.0) MITRAL VALVE: Normal Ranges: MV Vmax: 1.39 m/s (<=1.3m/s) MV peak P.7 mmHg (<5mmHg) MV mean P.0 mmHg (<48mmHg) MITRAL INSUFFICIENCY: Normal Ranges: MR Vmax: 479.00 cm/s dP/dt: 433 mmHg/s (>1200mmHg/sec) AORTIC VALVE: Normal Ranges: AoV Vmax: 1.47 m/s (<=1.7m/s) AoV Peak P.6 mmHg (<20mmHg) AoV Mean P.0 mmHg (1.7-11.5mmHg) LVOT Max Robert: 0.84 m/s (<=1.1m/s) AoV VTI: 35.10 cm (18-25cm) LVOT VTI: 18.40 cm LVOT Diameter: 2.00 cm (1.8-2.4cm) AoV Area, VTI: 1.65 cm2 (2.5-5.5cm2) AoV Area,Vmax: 1.78 cm2 (2.5-4.5cm2) AoV Dimensionless Index: 0.52 TRICUSPID VALVE/RVSP: Normal Ranges: Peak TR Velocity: 1.84 m/s RV Syst Pressure: 16.5 mmHg (< 30mmHg) PULMONIC VALVE: Normal Ranges: PV Max Robert: 0.6 m/s (0.6-0.9m/s) PV Max P.4 mmHg PIEDV: 1.61 m/s PADP: 13.4 mmHg [id number] Tata Faulkner MD Electronically signed on 02/20/2024 at 5:20:30 PM Final [facility] Work Phone: activated partial thromboplastin time (aPTT) in platelet poor plasma by coagulation aOrdered By: Cathy Cheng on 01-16-2024 aPTT Coag (PPP) [Time]26.3 s25.1-36.5FMercy Health Urbana HospitalComment on above:A hematocrit value greater than 55% may lead to inaccurate results in coagulation testing. Patientshaving hematocrit values >55% require a special collection tube for coagulation studies. Please contact the laboratory at [phone] for redraw instructions.Alanine aminotransferase [Enzymatic activity/volume] in Serum or PlasmaOrdered By: Cathy Cheng on 76-02-0730VIJ [Catalytic activity/Vol]19 U/L7-52Fort [facility] HospitalAlbumin [Mass/volume] in Serum or Plasma by Bromocresol green (BCG) dye binding metho Ordered By: Cathy Cheng on 29-49-5549Jersgvi BCG dye [Mass/Vol]4.3 g/dL 3.5-5.7FMercy Health Urbana HospitalAlkaline phosphatase [Enzymatic activity/volume] in Serum or PlasmaOrdered By: Cathy Cheng on 91-03-4377WEW [Catalytic activity/Vol]77 U/E05-253QjbjppvpoFort Hamilton HospitalAspartate aminotransferase [Enzymatic activity/volume] in Serum or PlasmaOrdered By: Cathy Cheng on 72-32-7100CYK [Catalytic activity/Vol]21 U/P51-79DfpcbgkkzFort Hamilton HospitalBasophils Auto (Bld) [#/Vol]Ordered By: Cathy Cheng on 37-00-7355Hehezrimm (Bld) [#/Vol]0.0 10*3/uL0.0-0.2FMercy Health Urbana HospitalBasophils/100 WBC Auto (Bld)Ordered By: Cathy Cheng on 01-16-2024 Basophils/100 WBC (Bld)0.7 %.[facility] HospitalBilirubin Test strip Ql (U)Ordered By: Cathy Cheng on 88-23-7689Dbhimgrkm Ql (U)Negative NegativeFort Hamilton HospitalBilirubin.total [Mass/volume] in Serum or PlasmaOrdered By: Cathy Cheng on 19-74-0875Jsbcekcnz [Mass/Vol]0.4 mg/dL 0.3-1.0[facility] HospitalCOVID CepheidOrdered By: Cathy Cheng on 50-24-0291LNHJ-CoV-2 (COVID-19) Ab IA QlNegativeNegativeFort Hamilton HospitalComment on above:This is a duplicate CepEmbedStoreid Xpert Xpress CoV- 2/Flu/RSV Plus RNA by RT-PCR result to be used for statistical tracking purpose only.SARS-CoV-2 (COVID-19) RNA DEYSI+probe Ql (Unsp spec)[facility] HospitalCalcium [Mass/volume] in Serum or PlasmaOrdered By: Cathy Cheng on 53-11-0007Xvsnnco [Mass/Vol]8.8 mg/dL8.6-10.3FMercy Health Urbana HospitalCarbon dioxide, total [Moles/volume] in Serum or PlasmaOrdered By: Cathy Cheng on 10-36-9748GD6 [Moles/Vol]27.2 mmol/L21.0-31.0[facility] HospitalChloride [Moles/volume] in Serum or PlasmaOrdered By: Cathy Cheng on 07-34-1573Azkilajk [Moles/Vol]107 mmol/T73-870TxyxkxiblFort Hamilton HospitalColor Auto (U)Ordered By: Cathy Cheng on 01-16-2024 Color (U)YellowYellowFort Hamilton HospitalCreatinine [Mass/volume] in Serum or PlasmaOrdered By: Cathy Cheng on 05-82-4391Faebyktgjw [Mass/Vol] 0.88 mg/dL0.60-1.20[facility] HospitalEosinophils Auto (Bld) [#/Vol]Ordered By: Cathy Cheng on 63-42-2566Hurjdxzprgh (Bld) [#/Vol]0.1 10*3/uL0.0-0.45Fort [facility] HospitalEosinophils/100 WBC Auto (Bld) Ordered By: Cathy Cheng on 16-58-1206Gxetiyszlsj/100 WBC (Bld)1.0 %. [facility] HospitalErythrocyte distribution width Auto (RBC) [Ratio]Ordered By: Cathy Cheng on 91-62-8677Xhshfoehfji distribution width (RBC) [Ratio]14.8 %11.9-15.3FMercy Health Urbana HospitalGlobulin Calc (S) [Mass/Vol]Ordered By: Cathy Cheng on 83-35-7059Gfsmhxmq (S) [Mass/Vol]2.9 g/dLFort Hamilton HospitalGlucose [Mass/volume] in Serum or Plasma Ordered By: Cathy Cheng on 77-84-6756Djopoqy [Mass/Vol]76 mg/bE32-809 [facility] HospitalComment on above:ADA recommended reference rangeRandom Glucose Reference Range is dependent on time and content of last meal. Glucose of more than 200 mg/dL in a nonstressed, ambulatory subject supports the diagnosisof Diabetes Mellitus.Hematocrit Auto (Bld) [Volume fraction]Ordered By: Cathy Cheng on 83-89-5686Qvikulvuny (Bld) [Volume fraction]35.7 %34.0-46.4FMercy Health Urbana HospitalHemoglobin [Mass/volume] in BloodOrdered By: Cathy Cheng on 99-03-8230Hnfkyfwada (Bld) [Mass/Vol]11.8 g/dL11.8-15.4FMercy Health Urbana HospitalINR in Platelet poor plasma by Coagulation assayOrdered By: Cathy Cheng on 68-44-2598YEO Coag (PPP) [Relative time]0.9 {INR}[facility] HospitalComment on above:INR Therapeutic Range A) Pre- and Peroperative OAT started two weeks before surgery. NOT HIP SURGERY: 1.5 - 2.5 HIP SURGERY: 2 - 3B) Primary and secondary prevention of venous THROMBOSIS: 2 - 3C) Active venous thrombosis, pulmonary embolismand prevention of recurrent venous thrombosis: 2 - 3D) Preve ntion of arterial thromboembolismincluding patients with mechanical heart valves: 3 - 4.5Ketones Auto test strip (U) [Mass/Vol]Ordered By: Cathy Cheng on 96-99-1350Grccxlc (U) [Mass/Vol]NegativeNegativeFort Hamilton HospitalLeukocytes [#/volume] corrected for nucleated erythrocytes in Blood by Automated counOrdered By: Cathy Cheng on 26-14-9474AWV corrected for nucl RBC Auto (Bld) [#/Vol]6.8 10*3/uL3.8-11.6FMercy Health Urbana Hospital Lymphocytes Auto (Bld) [#/Vol]Ordered By: Cathy Cheng on 01-16-2024 Lymphocytes (Bld) [#/Vol]1.8 10*3/uL1.00-4.8[facility] Lymphocytes/100 WBC Auto (Bld)Ordered By: Cathy Cheng on 01-16-2024 Lymphocytes/100 WBC (Bld)26.6 %.[facility] HospitalH Auto (RBC) [Entitic mass]Ordered By: Cathy Cheng on 21-51-6935SHA (RBC) [Entitic mass] 30.5 pg24.7-34.3FCorey HospitalHC Auto (RBC) [Mass/Vol] Ordered By: Cathy Cheng on 21-59-7715DBPX (RBC) [Mass/Vol]33.2 g/dL32.0-35.0 [facility] HospitalMCV Auto (RBC) [Entitic vol]Ordered By: Cathy Cheng on 81-13-9182WDB (RBC) [Entitic vol]91.9 wP78-630TjzcurshbFort Hamilton HospitalMonocyte distribution width [Entitic volume] in Blood by AutomatedOrdered By: Cathy Cheng on 18-49-9277Zruaujdt distribution width Auto (Bld) [Entitic vol]17.98 %0.00-20.00[facility] Monocytes Auto (Bld) [#/Vol]Ordered By: Cathy Cheng on 11-18-6643Fzwdatuic (Bld) [#/Vol]0.4 10*3/uL0.0-0.8[facility] HospitalMonocytes/100 WBC Auto (Bld)Ordered By: Cathy Cheng on 67-75-2389Kgkouvczb/100 WBC (Bld) 6.3 %.[facility] HospitalNatriuretic peptide B [Mass/Vol]Ordered By: Cathy Cheng on 36-77-0017Kxkvuewvdxl peptide B (Bld) [Mass/Vol]99.0 pg/mL5-100[facility] HospitalNeutrophils Auto (Bld) [#/Vol]Ordered By: Cathy Cheng on 76-94-3638Iavfvwgprbc (Bld) [#/Vol]4.5 10*3/uL1.8-7.7 [facility] HospitalNeutrophils/100 WBC Auto (Bld)Ordered By: Cathy Cheng on 74-95-5193Gdsmpeqrvto/100 WBC (Bld)65.4 %.[facility] HospitalNitrite Test strip Ql (U)Ordered By: Cathy Cheng on 01-16-2024 Nitrite Ql (U)NegativeNegativeFort Hamilton HospitalNo Panel InformationOrdered By: Cathy Cheng on 42-25-3019Uqlybvyxl GFR (CKD-EPI)> 60.0 mL/MinFort Hamilton HospitalPharmacy Creatinine Clearance (Chem 73.23[facility] HospitalNucleated erythrocytes [Presence] in Blood by Automated countOrdered By: Cathy Cheng on 00-14-0730Zhefndbzs RBC Auto Ql (Bld)0.0 /100{WBC}0-0.5FMercy Health Urbana HospitalPlatelet mean volume Auto (Bld) [Entitic vol]Ordered By: Cathy Cheng on 48-65-3346Dhcecpxu mean volume (Bld) [Entitic vol]8.3 fL6.3-10.7FMercy Health Urbana Hospital Platelets Auto (Bld) [#/Vol]Ordered By: Cathy Cheng on 42-91-5550Vbbabckue (Bld) [#/Vol]295 10*3/yX143-184CmcmbwyywFort Hamilton HospitalPotassium [Moles/volume] in Serum or PlasmaOrdered By: Cathy Cheng on 01-16-2024 Potassium [Moles/Vol]4.3 mmol/L3.5-5.1FMercy Health Urbana HospitalProtein Auto test strip (U) [Mass/Vol]Ordered By: Cathy Cheng on 56-12-3101Ipbgerd (U) [Mass/Vol]NegativeNegativeFort Hamilton HospitalProtein [Mass/volume] in Serum or PlasmaOrdered By: Cathy Cheng on 58-92-4133Itqrqal [Mass/Vol]7.2 g/dL6.4-8.9[facility] HospitalProthrombin time (PT) Ordered By: Cathy Cheng on 52-72-6433MM Coag (PPP) [Time]11.0 s9.0-12.9 [facility] HospitalComment on above:A hematocrit value greater than 55% may lead to inaccurate results in coagulation testing. Patientshaving hematocrit values >55% require a special collection tube for coagulation studies. Please contact the laboratory at [phone] for redraw instructions. RBC Auto (Bld) [#/Vol]Ordered By: Cathy Cheng on 88-17-4742PBN (Bld) [#/Vol] 3.89 10*6/uL3.60-5.00[facility] Private Hospitalerum or plasma albumin/globulin mass ratioOrdered By: Cathy Cheng on 01-16-2024 Albumin/Globulin [Mass ratio]1.5 {ratio}[facility] Hospitalerum or plasma anion gap determinationOrdered By: Cathy Cheng 53-71-6248Vghdr gap [Moles/Vol]10.1 mmol/L6.0-15.0[facility] Hospitalodium [Moles/volume] in Serum or PlasmaOrdered By: Cathy Cheng 08-24-2367Qzbaeg [Moles/Vol]140 mmol/R101-261PhquulzgcKeenan Private Hospitalpecific gravity Auto test strip (U) [Rel density]Ordered By: Cathy Cheng on 01-16-2024 Specific gravity (U) [Rel density]1.0191.001-1.030[facility] HospitalTroponin I.cardiac [Mass/volume] in Serum or Plasma by Detection limit <= 0.01 ng/Ordered By: Cathy Cheng on 85-81-3024Erawmsgs I.cardiac DL <= 0.01 ng/mL [Mass/Vol]< 2.3 pg/mL0.0-15.0[facility] HospitalUrea nitrogen [Mass/volume] in Serum or PlasmaOrdered By: Cathy Cheng 15-57-5574Kroh nitrogen [Mass/Vol]18 mg/dL7-25[facility] Urine clarity by refractometry automatedOrdered By: Cathy Cheng 56-19-9379Unacfxw Refractometry automated (U)ClearCleUpper Valley Medical CenterUrine glucose measurement by automated test strip (mass/volume) Ordered By: Cathy Cheng 04-93-0239Fwyizga Auto test strip (U) [Mass/Vol] Normal mg/dLNoMetroHealth Cleveland Heights Medical CenterUrine hemoglobin detection by automated test stripOrdered By: Cathy Cheng 73-32-4614Axqzhftjwn Auto test strip Ql (U)NegativeNegAshtabula General HospitalUrine leukocyte esterase detection by automated test stripOrdered By: Cathy Cheng 52-87-6129Jzfvqcvjs esterase Auto test strip Ql (U)NegativeNegAshtabula General HospitalUrobilinogen Auto test strip (U) [Mass/Vol]Ordered By: Cathy Cheng on 63-84-4508Qrnbsqugozix (U) [Mass/Vol]Normal mg/dLMercy Health St. Elizabeth Boardman HospitalWBC Auto (Bld) [#/Vol]Ordered By: Cathy Cheng on 95-70-9648VIP (Bld) [#/Vol]6.8 10*3/uL3.8-11.6FMercy Health Urbana HospitalpH Auto test strip (U)Ordered By: Cathy Cheng on 99-38-1312jV (U)7.5 [pH]5.0-9.0[facility] HospitalOffice Visit (Cardiology)on 08-96-6878Ntzaut-up visitDiagnoses/Problems Assessed CAD (coronary artery disease) (414.00) (I25.10) April 07, 2021 presented with acute inferior PA. At that time had PCI/[place] proximal RCA with IVUS guidance and provisional PTCA PLV August 23, 2021 mid RCA 50% with negative IFR after a patent stent. Mild/moderate left main with IVUS 40% MLA 2.5x2.5 (ref size 4mm). PCI/[place] 2.5x15mm OM1/mcx Current daily activity right at 4 METS without recurrent symptoms CHF (NYHA class III, ACC/AHA stage C) (428.0) (I50.9) Ischemic heart failure with improved ejection fraction LVEF 55% Nov 2021 Echo (prior 35% August 2021 cardiac cath) Functional class II Stage C Guideline directed medical therapy: Has been on carvedilol losartan over to Entresto 24/26 mg September 20, 2021 Spironolactone prohibited due to hypotension Hyperlipemia (272.4) (E78.5) High intensity statin Reports annual wellness labs through PCP Stage 1 chronic kidney disease (585.1) (N18.1) Baseline creatinine 1.0 Class 2 obesity with body mass index (BMI) of 38.0 to 38.9 in adult (278.00,V85.38) (E66.9,Z68.38) Reviewed the merits of healthy lifestyle choices on overall cardiovascular health. History of ST elevation myocardial infarction (STEMI) (412) (I25.2) February 05, 2021 acute inferior PA Orders CHF (NYHA class III, ACC/AHA stage C) Renew: Carvedilol 3.125 MG Oral Tablet; TAKE ONE TABLET BY MOUTH TWICE A DAY WITH MEALS Class 2 obesity with body mass index (BMI) of 38.0 to 38.9 in adult Healthy Weight Tips; Status:Complete; Done: 30Eti6928 Unlinked Stop: Aspirin 81 MG TABS Patient Instructions Please bring all medicines, vitamins, and herbal supplements with you when you come to the office. Prescriptions will not be filled unless you are compliant with your follow up appointments or have a follow up appointment scheduled as per instruction of your physician. Refills should be requested at the time of your visit. PLAN: Through informed decision making process incorporating patients unique circumstances, the followingtreatment plan will be initiated: 1. Prescription drug management of cardiovascular medication for efficacy, adherence to treatment, side effect assessment and polypharmacy. Current treatment clinically warranted and to continue withfollowing modifications: - Stop ASA 2. Try to separate morning dose of coreg and entresto by 2 hours 3. Return for follow-up; in the interim, contact the office if new symptoms arise. Dr. Mejia as scheduled Chief Complaint Routine f/u: 'doing fine' ADELA HOPKINS is being seen for a 8 month follow-up of coronary artery disease, dyslipidemia and hypertension. Patient presents to the office ambulatory with steady gait. Last evaluated in clinic Dr. Mejia December 2022. She follows routinely with PCP with annual wellness labs. She denies any hospitalizations or significant changes to interval medical history since last office follow-up. She presents to the office today reportedly doing pretty good . She remains active doing gardening, yard work and housework. Her laundry is down in the basement and she goes up and down the stairs on a regular basis. Her prior anginal symptom was jaw and chest pain and she denies any recurrence, no utilization of nitroglycerin. She denies any change in exercise capacity or functional tolerance. She has noted some increase in nuisance bleeding on DAPT, due to mild/moderate left main disease will continue on Plavix but later discontinue aspirin. Occasionally she noticed some mild dizziness after morning medication and she will separate dose of carvedilol and Entresto by 2 hours. Secondary prevention has been reviewed and remains optimal. 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 Agrees to start walking on a treadmill 30 minutes a day 3 times a week. Overall patient is pleased with current state of cardiovascular health. At this time there are no indications for additional cardiovascular testing or need for medication changes. History of Present Illness The patient states she has been generally doing well since the last visit. Comorbid Illnesses: hypertension and hyperlipidemia. Symptoms: denies chest pain at rest, denies exertional chest pain, stable dyspnea, stable fatigue, denies exercise intolerance, denies palpitations, denies edema, denies orthopnea, denies dizziness and denies orthostatic dizziness. Associated symptoms: no syncope. Her symptoms do not limit her activities. Disease Monitoring: The patient has had a stable weight. Medications: the patient is adherent with her medication regimen. She denies medication side effects. Surgical History Problems History of Appendectomy History of Cataract surgery History of section History of Cholecystectomy History of Complete colonoscopy History of Elbow surgery History of Hand surgery History of Hysterectomy History of Knee surgery History of Neck surgery Past Medical History Problems (more content not included)...NormalUH TouchworksTobacco Screening.on 08-07-2023 Fall risk assessmenta) No falls within the last yearProvidence Health Plink 250 DO Work Phone: Tobacco use status CPHSb) NoMLourdes Counseling Center MashMe.TV 250 DO Work Phone: FREE T4on [phone] T4 [Mass/Vol]1.07 ng/dLNormal 0.76-1.46[facility] HospitalComment on above:Performed By: #### FT4 #### [facility] [address] [place] [address] Dr. Naren OlivasLIPID PROFILEon 11-31-7064DFBG-HDL RATIO NORMSEE BELOWOhio Valley HospitalComment on above:Result Comment: 3.3 - 4.4 LOW RISK 4.4 - 7.1 AVERAGE RISK 7.1 - 11.0 MODERATE RISK >11.0 HIGH RISKPerformed By: #### AST, LIPID, ALT #### [facility] [address] [place] [address] [address] Naren OlivasCholesterol [Mass/Vol]160 mg/dLNormal<=200[facility] Comment on above:Performed By: #### AST, LIPID, ALT #### [facility] [address] [place] [address] [address] Naren OlivasCholesterol in HDL [Mass/Vol]60 mg/nOYmbcjh37-48PjhSamaritan HospitalComment on above:Performed By: #### AST, LIPID, ALT #### [facility] [address] [place] [address] Dr. Naren OlivasCholesterol in LDL [Mass/Vol]86.2 mg/dLOhio Valley HospitalComment on above:Performed By: #### AST, LIPID, ALT #### [facility] [address] [place] [address] Dr. Naren Solitarioestercrystal.total/Cholesterol in HDL [Mass ratio]2.7 {ratio} NormalSamaritan HospitalComment on above:Performed By: #### AST, LIPID, ALT #### [facility] [address] [place] [address] Dr. Naren Daniel NORMAL> or = 60 mg/dl - LOW CARDIOVASCULAR RISK <40 mg/dl - HIGH CARDIOVASCULAR RISKNoTwin City HospitalComment on above:Performed By: #### AST, LIPID, ALT #### [facility] [address] [place] [address] Dr. Naren Herrera CALC NORMALSEE BELOWOhio Valley HospitalComment on above:Result Comment: <100 mg/dl OPTIMAL 100 - 129 mg/dl NEAR OR ABOVE OPTIMAL 130 - 159 mg/dl BORDERLINE HIGH 160 - 189 mg/dl HIGH >190 mg/dl VERY HIGH Performed By: #### AST, LIPID, ALT #### [facility] [address] [place] [address] Dr. Naren OlivasTriglyceride [Mass/Vol]69 mg/dLNormal<=150[facility] Comment on above:Performed By: #### AST, LIPID, ALT #### [facility] [address] [place] [address] Dr. Naren OlivasVLDL CALC13.8 mg/dLNoTwin City HospitalComment on above: Performed By: #### AST, LIPID, ALT #### [facility] [address] [place] [address] Dr. Naren Richard [id number] [Catalytic activity/Vol]21 U/AOaikgp04-54Adh [facility]imaComment on above:Performed By: #### AST, LIPID, ALT #### [facility] [address] [place], [place] [address] Dr. Naren Woods [id number] [Catalytic activity/Vol]28 U/SEgpvnl88-36Wlr [facility] LimaComment on above:Performed By: #### AST, LIPID, ALT #### [facility] [address] [place] [address] [address] Naren Sarah [id number] uIU/mLCritically low0.358-3.740The [facility] LimaComment on above:Performed By: #### TSH #### [facility] [address] [place] [address] Dr. Naren Fernandez Visit (Cardiology)on [id number]-up visit Diagnoses/Problems Assessed CAD (coronary artery disease) (414.00) (I25.10) History of ST elevation myocardial infarction (STEMI) (412) (I25.2) History of PTCA (V45.82) (Z98.61) Ischemic cardiomyopathy (414.8) (I25.5) Hyperlipemia (272.4) (E78.5) Hypertension (401.9) (I10) Former smoker (V15.82) (Z87.891) Quit 2000 Class 2 obesity with body mass index (BMI) of 38.0 to 38.9 in adult (278.00,V85.38) (E66.9,Z68.38) Orders CAD (coronary artery disease), Hyperlipemia, Ischemic cardiomyopathy ALT - Alanine Aminotransferase, Serum; Status:Active - Retrospective Authorization; Requested for:20Dec2022; AST; Status:Active - Retrospective Authorization; Requested for:20Dec2022; Lipid Panel; Status:Active - Retrospective Authorization; Requested for:20Dec2022; CHF (NYHA class III, ACC/AHA stage C) Renew: Carvedilol 3.125 MG Oral Tablet; TAKE ONE TABLET BY MOUTH TWICE A DAY WITH MEALS Renew: Clopidogrel Bisulfate 75 MG Oral Tablet; TAKE ONE TABLET BY MOUTH DAILY CHF (NYHA class III, ACC/AHA stage C), Ischemic cardiomyopathy Renew: Entresto 24-26 MG Oral Tablet; TAKE 1 TABLET BY MOUTH TWICE A DAY Class 2 obesity with body mass index (BMI) of 38.0 to 38.9 in adult Healthy Weight Tips; Status:Complete - Retrospective Authorization; Done: 20Dec2022 Some eating tips that can help you lose weight.; Status:Complete - Retrospective Authorization; Done: 20Dec2022 Hyperlipemia Renew: Atorvastatin Calcium 80 MG Oral Tablet; TAKE 1 TABLET Bedtime SocHx: Former smoker Tobacco Use Screening; Status:Complete; Done: 20Dec2022 Patient Instructions Please bring all medicines, vitamins, and herbal supplements with you when you come to the office. Prescriptions will not be filled unless you are compliant with your follow up appointments or have a follow up appointment scheduled as per instruction of your physician. Refills should be requested at the time of your visit. Follow up in 8 months with Melanie Nelson NP Chief Complaint ADELA HOPKINS is being seen for a 6 month follow-up of. 62-year-old female returns for follow-up she is doing well she has no cardiovascular complaints. She denies angina or nitrate usage or hospitalizations. She remains on appropriate guideline directed medical therapies as reviewed. She sustained inferior PA in April 2021 with primary PCI of the RCA with provisional angioplasty of the PLV branch subsequent PCI of the LAD in August 2021, she had a ischemic cardiomyopathy now with normalized left ventricular function and no heart failure. She has underlying obesity, hyperlipidemia, former smoker but quit in 2000. She is tolerating her afterload reduction therapies well She does have some COPD with mild respiratory disability. Recommendations: Follow-up in 1 year months Surgical History Problems History of Appendectomy History of Cataract surgery History of section History of Cholecystectomy History of Complete colonoscopy History of Elbow surgery History of Hand surgery History of Hysterectomy History of Knee surgery History of Neck surgery Past Medical History Problems History of anticoagulant therapy (V87.49) (Z92.29) Resolved Date: 20 Sep 2021 History of class III angina pectoris (V12.59) (Z86.79) Resolved Date: 20 Sep 2021 Current Meds Medication NameInstruction Albuterol Sulfate HFA 108 (90 Base) MCG/ACT Inhalation Aerosol SolutionUSE DIRECTED Aspirin 81 MG TABSTAKE 1 TABLET DAILY. Atorvastatin Calcium 80 MG Oral TabletTAKE 1 TABLET Bedtime Carvedilol 3.125 MG Oral TabletTAKE ONE TABLET BY MOUTH TWICE A DAY WITH MEALS Citalopram Hydrobromide 40 MG Oral TabletTAKE 1 TABLET DAILY. Clopidogrel Bisulfate 75 MG Oral TabletTAKE ONE TABLET BY MOUTH DAILY Doxycycline Hyclate CAPSas directed Entresto 24-26 MG Oral TabletTAKE 1 TABLET BY MOUTH TWICE A DAY Gabapentin 300 MG Oral CapsuleTake 1 capsule twice daily Levothyroxine Sodium 112 MCG Oral TabletTAKE 1 TABLET DAILY. Loratadine 10 MG Oral TabletTAKE 1 TABLET EVERY MORNING NEEDED. Nitroglycerin 0.4 MG Sublingual Tablet SublingualPLACE 1 TABLET UNDER THE TONGUE EVERY 5 MINUTES FOR UP TO 3 DOSES NEEDED FOR CHEST PAIN.CALL 911 IF PAIN PERSISTS. Allergies Medication lisinopril Allergy; Cough; Recorded By: Claire Sanchez; 09/20/2021 8:31:57 AM Penicillins Allergy; Rash; Recorded By: Claire Sanchez; 09/20/2021 8:31:57 AM Reglan TABS Allergy; Rash; Recorded By: Claire Sanchez; 09/20/2021 8:31:57 AM tramadol Adverse Reaction; Itching; Recorded By: Pam Brizuela; 06/06/2022 10:46:38 AM Social History Problems Caffeine use (V49.89) (Z78.9) 2-3 cups coffee / tea daily Consumes alcohol (V49.89) (Z78.9) socially Former smoker (V15.82) (Z87.891) Quit 2000 No illicit drug use Review of Systems Constitutional: not feeling tired. Cardiovascular: no intermittent leg claudication and as noted in HPI. Respiratory: no cough and no shortness of breath. Gastrointestinal: no c (more content not included)...NormalUH TouchworksXR Chest 2 Views*on [id number] Chest 2 Views*FINDINGS: No acute cardiac or pulmonary disease is identified. No worrisome mass lesions or infiltrates are seen. No pulmonary edema or pneumothorax is present. Cardiac silhouette size is normal. Skeletal structures are unremarkable. IMPRESSION: No acute cardiac or pulmonary disease. Report reported and signed by IZABELA BROWN on 12/13/2022 1552NormalNorthern Pennsylvania Medical SpecialistKING'S DAUGH[facility] AUTO DIFFon [id number] #0.0 103/ulNormal0.0-0.1 Samaritan HospitalComment on above:Performed By: #### BMP #### [facility] [address] [place] [address] Dr. Naren OlivasBasophils/100 WBC (Bld)0.5 %Normal0.2-2.0[facility] Comment on above:Performed By: #### BMP #### [facility] [address] [place] [address] Dr. Naren Crawford #0.1 103/ulNormal0.0-0.7The [facility] LimaComment on above: Performed By: #### BMP #### [facility] [address] [place] [address] Dr. Naren Bakerosinophils/100 WBC (Bld)1.4 %Normal0.9-7.0The [facility] Comment on above:Performed By: #### BMP #### [facility] [address] [place] [address] Dr. Naren Bakerrythrocyte distribution width (RBC) [Ratio]13.9 %Zyidvb08.0-15.0 Samaritan HospitalComment on above:Performed By: #### BMP #### [facility] [address] [place] [address] Dr. Naren OlivasHematocrit (Bld) [Volume fraction]36.7 %Efsnsu42.0-48.0Samaritan HospitalComment on above:Performed By: #### BMP #### [facility] [address] [place] [address] Dr. Naren OlivasHemoglobin (Bld) [Mass/Vol]11.9 g/dLCritically low12.0-16.0Samaritan HospitalComment on above:Performed By: #### BMP #### [facility] [address] [place] [address] Dr. Naren Naqvi #0.03 10e3/ulNormal0.00-0.03The [facility] LimaComment on above:Performed By: #### BMP #### [facility] [address] [place] [address] Dr. Naren Naqvi %0.5 %Normal0.0-0.5The [facility] Hospital LimaComment on above: Performed By: #### BMP #### [facility] [address] [place] [address] Dr. Naren Lovett #1.9 103/ulNormal1.2-3.8The [facility] LimaComment on above:Performed By: #### BMP #### [facility] [address] [place] [address] Dr. Naren Steinerhocytes/100 WBC (Bld)29.4 %Nypxag21.5-60.0The [facility] Hospital LimaComment on above:Performed By: #### BMP #### [facility] [address] [place] [address] Dr. Naren BlancaUAL DIFF REQNONormalThe [facility] Hospital LimaComment on above: Performed By: #### BMP #### [facility] [address] [place] [address] Dr. Naren Block (RBC) [Entitic mass]30.2 dcDyttxu67.7-34.0The [facility] Hospital LimaComment on above:Performed By: #### BMP #### [facility] [address] [place] [address] Dr. Naren Muñoz (RBC) [Mass/Vol]32.4 g/wUMwwuvz68.9-35.2The [facility] LimaComment on above:Performed By: #### BMP #### [facility] [address] [place] [address] Dr. Naren Muñoz (RBC) [Entitic vol]93.1 zNPqdmnw93.0-99.0The [facility] Hospital LimaComment on above:Performed By: #### BMP #### [facility] [address] [place] [address] Dr. Naren Maxwell #0.5 103/ulNormal0.3-0.8The [facility] LimaComment on above:Performed By: #### BMP #### [facility] [address] [place] [address] Dr. Naren Bolandocytes/100 WBC (Bld)7.2 %Normal1.7-12.0The [facility] Comment on above:Performed By: #### BMP #### [facility] [address] [place] [address] Dr. Naren GordonUT #4.0 103/ulNormal1.4-6.5The [facility] Hospital LimaComment on above:Performed By: #### BMP #### [facility] [address] [place] [address] Dr. Naren Gordonutrophils/100 WBC (Bld)61.0 %Kvwdfk88.0-75.0The [facility] Hospital LimaComment on above:Performed By: #### BMP #### [facility] [address] [place] [address] Dr. Naren OlivasPlatelet mean volume (Bld) [Entitic vol]9.5 fLNormal9.5-13.5The [facility] Hospital LimaComment on above:Performed By: #### BMP #### [facility] [address] [place] [address] Dr. Naren OlivasPLT281 103/ccRuqrpi341-454Mqc [facility] LimaComment on above: Performed By: #### BMP #### [facility] [address] [place] [address] Dr. Naren OlivasRBC3.94 106/ulCritically low4.20-5.40The [facility] LimaComment on above:Performed By: #### BMP #### [facility] [address] [place] [address] Dr. Naren OlivasWBC6.5 103/ulNormal4.0-11.0The [facility] LimaComment on above: Performed By: #### BMP #### [facility] [address] [place] [address] Dr. Naren OlivasFERRITINon 59-45-9429Gvmckjqf [Mass/Vol]89.0 ng/mLNormal8.0-252.0 The [facility] LimaComment on above:Performed By: #### BMP #### [facility] [address] [address] [address] Naren Pablo AND TIBCon 12-05-2022% KMDOHQBJHG34.3 %NormalThe [facility] Hospital LimaComment on above:Performed By: #### BMP #### [facility] [address] [place] [address] Dr. Naren Pablo [Mass/Vol]52.0 ug/qGRunzjr51.0-170.0The [facility] Comment on above:Performed By: #### BMP #### [facility] [address] [place] [address] Dr. Naren ConcepcionC ZJAWBW764.0 ug/gVWxccgk121.0-450.0The [facility] Comment on above:Performed By: #### BMP #### [facility] [address] [place] [address] Dr. Naren CroftF 14(COMP METB)on 12-78-3211Gdnzacm [Mass/Vol]3.4 g/dLNormal 3.4-5.0The [facility] LimaComment on above:Performed By: #### BMP #### [facility] [address] [place] [address] Dr. Naren OlivasAlbumin/Globulin [Mass ratio]1.0 {ratio}NormalThe [facility] Hospital LimaComment on above:Performed By: #### BMP #### [facility] [address] [place] [address] Dr. Naren Pang [Catalytic activity/Vol]72 U/GMxnlty98-057Efn [facility] LimaComment on above:Performed By: #### BMP #### [facility] [address] [place] [address] Dr. Naren Burleson [Catalytic activity/Vol]23 U/IGeufmz53-17Fxq [facility] LimaComment on above:Performed By: #### BMP #### [facility] [address] [place] [address] Dr. Naren Jenkins gap [Moles/Vol]13.2 mmol/LNormalThe [facility] Comment on above:Performed By: #### BMP #### [facility] [address] [address] [address] Naren OlivasAST [Catalytic activity/Vol]19 U/TVcexiy59-07Oes [facility] LimaComment on above:Performed By: #### BMP #### [facility] [address] [address] [address] Naren OlivasBilirubin [Mass/Vol]0.4 mg/dLNormal0.2-1.0The [facility] Comment on above:Performed By: #### BMP #### [facility] [address] [address] [address] Naren OlivasCalcium [Mass/Vol]8.7 mg/dLNormal8.5-10.1The [facility] Comment on above:Performed By: #### BMP #### [facility] [address] [address] [address] Naren OlivasChloride [Moles/Vol]106 mmol/MOwwbqj42-436Rhr [facility] Comment on above:Performed By: #### BMP #### [facility] [address] [address] [address] Naren OlivasCO2 [Moles/Vol]26.2 mmol/GRsshud24.0-32.0The [facility] Comment on above:Performed By: #### BMP #### [facility] [address] [address] [address] Naren OlivasCreatinine [Mass/Vol]0.80 mg/dLNormal0.55-1.02The [facility] LimaComment on above:Performed By: #### BMP #### [facility] [address] [address] [address] Sneed ChangEGFR-AF BELIZEAN>60Normal>=60The [facility] LimaComment on above:Performed By: #### BMP #### [facility] [address] [address] [address] Naren BakerGFR-NON AF BELIZEAN>60Normal>=60The [facility] LimaComment on above:Performed By: #### BMP #### [facility] [address] [address] [address] Naren OlivasGlobulin (S) [Mass/Vol]3.5 g/dLNormAvita Health System Bucyrus HospitalComment on above:Performed By: #### BMP #### [facility] [address] [place] [address] Dr. Naren OlivasGlucose [Mass/Vol]101 mg/wDLtxuub42-850EkhSamaritan Hospital Comment on above:Performed By: #### BMP #### [facility] [address] [address] [address] Naren OlivasPotassium [Moles/Vol]4.4 mmol/LNormal3.5-5.1The [facility] Comment on above:Performed By: #### BMP #### [facility] [address] [place] [address] Dr. Naren OlviasProtein [Mass/Vol]6.9 g/dLNormal6.4-8.2[facility] Comment on above:Performed By: #### BMP #### [facility] [address] [place] [address] Dr. Naren OlivasSodium [Moles/Vol]141 mmol/CEbdxml759-020TlsSamaritan Hospital Comment on above:Performed By: #### BMP #### [facility] [address] [place] [address] Dr. Naren OlivasUrea nitrogen [Mass/Vol]15.0 mg/dLNormal7.0-18.0[facility] HospitalComment on above:Performed By: #### BMP #### [facility] [address] [place] [address] Dr. Naren Kirk nitrogen/Creatinine [Mass ratio]18.8 mg/mgNormalThAvita Health System Galion HospitalComment on above:Performed By: #### BMP #### [facility] [address] [place] [address] Dr. Naren OlivasCovid-19 PCR ([facility])on [id number]-CoV-2 (COVID-19) RNA DEYSI+probe Ql (Unsp spec)DetectedCritically abnormalNOT DETECTEDThe [facility] Hospital LimaComment on above:Result Comment: This test is not yet approved or cleared by the [place] FDA. When there are no FDA-approved or cleared tests available, and other criteria are met, FDA can make tests available under an emergency access mechanism called an Emergency Use Authorization (EUA). The EUA for this test is supported by the [employer] of Health and Human Service's (HHS's) declaration that circumstances exist to justify the emergency use of in vitro diagnostics for the detection and/or diagnosis of the virus that causes COVID-19. This EUA will remain in effect (meaning this test can be used) for the duration of the COVID-19 declaration justifying emergency of IVDs, unless it is terminated or revoked by FDA (after which the test may no longer be used). Performed By: #### CVDTBH #### [facility] [address] [place] [address] Dr. Naren Lind Screening.on [id number] depression screening assessmentNoMP-[facility] [address] DO Work Phone: Fall risk assessmentc) Not medically indicatedMP-[facility] [facility] DO Work Phone: Tobacco use status CPHSb) NoMP-[facility] [place] [address] DO Work Phone: CBC AUTO DIFFon [id number] #0.0 103/ulNormal 0.0-0.1[facility] HospitalComment on above:Performed By: #### CBC #### [facility] [address] [place] [address] Dr. Naren Tejedaphils/100 WBC (Bld)0.4 %Normal0.2-2.0The [facility] Comment on above:Performed By: #### CBC #### [facility] [address] [place] [address] Dr. Naren Crawford #0.2 103/ulNormal0.0-0.7The [facility] LimaComment on above: Performed By: #### CBC #### [facility] [address] [place] [address] Dr. Yilan ChangEosinophils/100 WBC (Bld)2.0 %Normal0.9-7.0The [facility] Comment on above:Performed By: #### CBC #### [facility] [address] [place] [address] Dr. Naren Bakerrythrocyte distribution width (RBC) [Ratio]14.2 %Uejunf36.0-15.0 The [facility] LimaComment on above:Performed By: #### CBC #### [facility] [address] [place] [address] Dr. Naren OlivasHematocrit (Bld) [Volume fraction]36.2 %Iyzgmf44.0-48.0The [facility] LimaComment on above:Performed By: #### CBC #### [facility] [address] [place] [address] Dr. Naren OlivasHemoglobin (Bld) [Mass/Vol]11.6 g/dLCritically low12.0-16.0The [facility] LimaComment on above:Performed By: #### CBC #### [facility] [address] [place] [address] Dr. Naren OlivasIG #0.03 10e3/ulNormal0.00-0.03The [facility] LimaComment on above:Performed By: #### CBC #### [facility] [address] [place] [address] Dr. Naren OlivasIG %0.4 %Normal0.0-0.5The [facility] LimaComment on above: Performed By: #### CBC #### [facility] [address] [place] [address] Dr. Naren SteinerH #2.3 103/ulNormal1.2-3.8The [facility] LimaComment on above:Performed By: #### CBC #### [facility] [address] [place] [address] Dr. Naren Manmphocytes/100 WBC (Bld)28.3 %Ejnkqg11.5-60.0The [facility] LimaComment on above:Performed By: #### CBC #### [facility] [address] [place] [address] Dr. Naren Larson DIFF REQNONormalThe [facility] LimaComment on above: Performed By: #### CBC #### [facility] [address] [place] [address] Dr. Naren Muñoz (RBC) [Entitic mass]30.5 wfNikrsy03.7-34.0The [facility] LimaComment on above:Performed By: #### CBC #### [facility] [address] [place] [address] Dr. Naren Muñoz (RBC) [Mass/Vol]32.0 g/iYMwejmh47.9-35.2The [facility] LimaComment on above:Performed By: #### CBC #### [facility] [address] [place] [address] Dr. Naren Muñoz (RBC) [Entitic vol]95.3 bBMqrvkt50.0-99.0The [facility] LimaComment on above:Performed By: #### CBC #### [facility] [address] [place] [address] Dr. Naren Maxwell #0.5 103/ulNormal0.3-0.8The [facility] LimaComment on above:Performed By: #### CBC #### [facility] [address] [place] [address] Dr. Naren Bolandocytes/100 WBC (Bld)5.8 %Normal1.7-12.0The [facility] Comment on above:Performed By: #### CBC #### [facility] [address] [place] [address] Dr. Naren Mitchell #5.1 103/ulNormal1.4-6.5The [facility] LimaComment on above:Performed By: #### CBC #### [facility] [address] [place] [address] Dr. Naren Gordonutrophils/100 WBC (Bld)63.1 %Uoribl31.0-75.0The [facility] LimaComment on above:Performed By: #### CBC #### [facility] [address] [place] [address] Dr. Naren Hesslet mean volume (Bld) [Entitic vol]9.8 fLNormal9.5-13.5The [facility] LimaComment on above:Performed By: #### CBC #### [facility] [address] [place] [address] Dr. Naren HirschT278 103/rlApyurm392-527Qjq [facility] LimaComment on above: Performed By: #### CBC #### [facility] [address] [place] [address] Dr. Naren OlivasRBC3.80 106/ulCritically low4.20-5.40The [facility] LimaComment on above:Performed By: #### CBC #### [facility] [address] [place] [address] Dr. Naren OlivasWBC8.1 103/ulNormal4.0-11.0The [facility] LimaComment on above: Performed By: #### CBC #### [facility] [address] [place] [address] Dr. Naren Sarah 63-62-2418TAN9.367 uIU/mLNormal0.358-3.740The [facility] LimaComment on above:Performed By: #### TSH #### [facility] [address] [place] [address] Dr. Naren OlivasPROF CHEM 8 (BAS METB)on 27-62-6841Vyidn gap [Moles/Vol]10.8 mmol/LNormalThe [facility] LimaComment on above:Performed By: #### BMP #### [facility] [address] [place] [address] Dr. Naren OlivasCalcium [Mass/Vol]8.1 mg/dLCritically low8.5-10.1The [facility] LimaComment on above:Performed By: #### BMP #### [facility] [address] [place] [address] Dr. Naren OlivasChloride [Moles/Vol]105 mmol/ZAxnugb23-926Cnx [facility] Comment on above:Performed By: #### BMP #### [facility] [address] [address] [address] Naren OlivasCO2 [Moles/Vol]28.1 mmol/FXmuffx24.0-32.0The [facility] Comment on above:Performed By: #### BMP #### [facility] [address] [address] [address] Naren OlivasCreatinine [Mass/Vol]0.76 mg/dLNormal0.55-1.02The [facility] LimaComment on above:Performed By: #### BMP #### [facility] [address] [address] [address] Naren BakerGFR-AF BELIZEAN>60Normal>=60The [facility] LimaComment on above:Performed By: #### BMP #### [facility] [address] [address] [address] Naren BakerGFR-NON AF BELIZEAN>60Normal>=60The [facility] LimaComment on above:Performed By: #### BMP #### [facility] [address] [address] [address] Naren OlivasGlucose [Mass/Vol]102 mg/iLTvbyoy54-409Fvm [facility] Comment on above:Performed By: #### BMP #### [facility] [address] [address] [address] Naren OlivasPotassium [Moles/Vol]3.9 mmol/LNormal3.5-5.1The [facility] Comment on above:Performed By: #### BMP #### [facility] [address] [address] [address] Naren OlivasSodium [Moles/Vol]140 mmol/MKoywlt279-385Pyi [facility] Comment on above:Performed By: #### BMP #### [facility] [address] [address] [address] Naren OlivasUrea nitrogen [Mass/Vol]18.0 mg/dLNormal7.0-18.0The [facility]red Hospital LimaComment on above:Performed By: #### BMP #### [facility] [address] [place], [place] [address] Dr. Naren OlivasUrea nitrogen/Creatinine [Mass ratio]23.7 mg/mgNoTwin City HospitalComment on above:Performed By: #### BMP #### [facility] [address] [place], [place] [address] Dr. Naren OlivasBasic Metabolic Panelon 92-45-0892Llret gap [Moles/Vol]12 mmol/L Sjqhjm31-81IcpszjkkOhio State Health SystemComment on above:Result Comment: Effective 12/07/2019 reference range changed.Performed By: #### BMP, [id number] #### [facility] [address] [place], [place] [address]E - B-TYPE NATRIURETIC (BNP)on 42-47-5750Tptlrxudlfo peptide B (Bld) [Mass/Vol]115 pg/mLHigh<100NortSelect Medical [facility]Health Rehabilitation Hospital - DublinComment on above:Order Comment: [facility] Testing performed at: [employer] [facility], [address] [place] [address], [address] [place] [address], Equipment Tester: oJse Kaplan MD [facility] Collection Date/Time: [facility] Results Received Date/Time: [facility] Reported Date/Time: [id number] Comment: BNP levels increase with age in the general population with the highest values seen in individuals greater than 75 years of age. Reference: J. Am. Ro. Cardiol. 2002; 40:976-982.Performed By: #### [id number] #### [facility] [address] [place], [place] [address]G - BASIC METABOLIC PANEL W/EGFRon 14-83-9021SXD/CREA22 NOT APPLICABLENormal6-22NortSelect Medical [place]Health Rehabilitation Hospital - DublinComment on above:Order Comment: [facility] Testing performed at: [employer] [facility], [address] [place] [address], [address] [place] [address], [phone], Equipment Tester: Jose Kaplan MD [facility] Collection Date/Time: [facility] Results Received Date/Time: [facility] Reported Date/Time: [id number] By: #### BMP, [id number] #### [facility] [address] [place], [place] [address]Jixdyco [Mass/Vol]9.1 mg/dLNormal8.6-10.4NoMercy Health [facility] Charles [facility] SpecialistComment on above:Order Comment: [facility] Testing performed at: [employer], [employer] [facility], [address] [facility], [address] [place] [address], [address] [place] [address], Equipment Tester: Jose Kaplan MD [facility] Collection Date/Time: [facility] Results Received Date/Time: [facility] Reported Date/Time: [id number] By: #### BMP, [id number] #### [facility] [address] [place], [place] [address]Pmxkbssv [Moles/Vol]107 mmol/BErqizr44-767Ehqboqgy [place] [facility] SpecialistComment on above:Order Comment: [facility] Testing performed at: [employer], [employer] [facility], [address] [facility], [address] [place] [address], [address] [place] [address], Equipment Tester: Jose Kaplan MD [facility] Collection Date/Time: [facility] Results Received Date/Time: [facility] Reported Date/Time: [id number] By: #### BMP, 04782E #### [facility] [address] [place], [place] [address]LM8 [Moles/Vol]26 mmol/IKkuiyk50-21Gvhbegpr [place] Medical SpecialistComment on above:Order Comment: [facility] performed at: [employer], [employer] [facility], [address] [facility], [address] [place] [address], [address] [place] [address], Equipment Tester: Jose Kaplan MD [facility] Collection Date/Time: [facility] Results Received Date/Time: [facility] Reported Date/Time: [id number] By: #### BMP, [id number] #### [facility] [address] [place], [place] [address]Htdkcybytg [Mass/Vol]0.82 mg/dLNormal0.50-0.99[facility] [place] [facility] SpecialistComment on above:Order Comment: [facility] performed at: [employer], [employer] [facility], [address] [facility], [address] [place] [address], [address] [place] [address], Equipment Tester: Jose Kaplan MD [facility] Collection Date/Time: [facility] Results Received Date/Time: [facility] Reported Date/Time: [id number] Comment: For patients >49 years of age, the reference limit for Creatinine is approximately 13% higher for people identified as -Botswanan.Performed By: #### HANNAH, [id number] #### [facility] [address] [place], [place] [address]uAFUES (Quest)90 mL/min/1.97z8Paxdbi> OR = 60[facility] [place] [facility] SpecialistComment on above:Order Comment: [facility] performed at: [employer], [employer] [facility], [address] [facility], [address] [place] [address], [address] [place] [address], Equipment Tester: Jose Kaplan MD [facility] Collection Date/Time: [facility] Results Received Date/Time: [facility] Reported Date/Time: [id number] By: #### HANNAH, [id number] #### [facility] [address] [place], [place] [address]bQUKRPM (Quest)78 mL/min/1.38i7Kpxlit> OR = 60[facility] [place] [facility] SpecialistComment on above:Order Comment: [facility] performed at: [employer], [employer] [facility], [address] [place] [address], [address] [place] [address], [address] [place] [address], Equipment Tester: Jose Kaplan MD [facility] Collection Date/Time: [facility] Results Received Date/Time: [facility] Reported Date/Time: [id number] By: #### BMP, [id number] #### [facility] [address] [place] [address]Eumxcuh [Mass/Vol]98 mg/kHCmtybj43-83Hgnhiueh [place] Medical SpecialistComment on above:Order Comment: [facility] Testing performed at: [facility], [employer] [facility], [address] [place] [address], [address] [place] [address], [address] [place] [address], Equipment Tester: Jose Kaplan MD [facility] Collection Date/Time: [facility] Results Received Date/Time: [facility] Reported Date/Time: [id number] Comment: Fasting reference intervalPerformed By: #### BMP, 43144N #### [facility] [address] [place] [address]Lojlfjhti [Moles/Vol]4.6 mmol/LNormal3.5-5.3NoMercy Health St. Charles Hospital SpecialistComment on above:Order Comment: [facility] Testing performed at: [facility], [employer] [facility], [address] [place] [address], [address] [place] [address], [address] [place] [address], Equipment Tester: Jose Kaplan MD [facility] Collection Date/Time: [facility] Results Received Date/Time: [facility] Reported Date/Time: [id number] By: #### BMP, 22398Q #### [facility] [address] [place] [address]Wtpnes [Moles/Vol]140 mmol/DLgkbsh185-290Qnmgpuqm [place] Medical SpecialistComment on above:Order Comment: [facility] Testing performed at: [facility], [employer] [facility], [address] [place] [address], [address] [place] [address], [address] [place] [address], Equipment Tester: Jose Kaplan MD [facility] Collection Date/Time: [facility] Results Received Date/Time: [facility] Reported Date/Time: [id number] By: #### BMP, [id number] #### [facility] [address] [place] [address]Lrqj nitrogen [Mass/Vol]18 mg/dLNormal7-25[facility] [place] [facility] SpecialistComment on above:Order Comment: [facility] performed at: [employer], [employer] [facility], [address], [address] [facility], [place], [address], Equipment Tester: Jose Kaplan MD [facility] Collection Date/Time: [id number] [facility] Results Received Date/Time: [id number] [facility] Reported Date/Time: [id number] By: #### BMP, 29937E #### [facility] [address] [place], [place] [address] Chest 2 Views*on 86-55-8288OY Chest 2 Views*CLINICAL HISTORY: Dyspnea and chest heaviness for 3 months. COMPARISON: 06/14/2021. TECHNIQUE: PA and lateral radiographs of the chest were obtained. FINDINGS: There is no significant pulmonary infiltrate, cardiomegaly, vascular congestion, pleural effusion, pneumothorax, or other findings of concern identified. IMPRESSION: NO EVIDENCE OF ACTIVE CARDIOPULMONARY DISEASE.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 kg/o8ZjncgVibha Clement CARE CENTER MANAGER Work Phone: [facility] CenterDayvkzprwd09-28-5934 13:10-0500Body ynnfwp74.98 kgSaarminda Mendozaoll CARE CENTER MANAGER Work Phone: [facility] CenterFdzjmkkmvq37-18-8327 13:10-0500Diastolic blood mm[Hg]Vibha Mendozaoll CARE CENTER MANAGER Work Phone: [facility] CenterQgxfvxmoou25-44-8664 13:10-0500Heart rate88 /min Vibha Mendozaoll CARE CENTER MANAGER Work Phone: [facility] CenterYbzcfhnhmz58-33-2597 13:10-5916AwF9% (BldA) [Mass fraction]96 %Vibha Urbano CARE CENTER MANAGER Work Phone: [facility] CenterBmtdejucgw92-14-1528 13:10-0500Systolic blood iwkrxqai631 mm[Hg]Vibha Clement CARE CENTER MANAGER Work Phone: noPark[facility] CenterYmlcarfnkx98-44-3853 09:38-0500Body oqnrgv753.5 cmCclarence Begum CARE CENTER MANAGER Work Phone: noParkland [facility] CenterFwphgcnqyt92-98-0496 09:38-0500Body mass index (BMI) [Ratio]39.69 kg/m9QslejkeBrenda Begum CARE CENTER MANAGER Work Phone: [facility] CenterDjiuwdvwwp47-23-6306 09:38-0500Body temperature 97.2 [degF]Brenda Begum CARE CENTER MANAGER Work Phone: [facility] CenterIeyeedqxsh74-79-6249 09:38-0500Body cuabnq26.43 kgBrenda Begum CARE CENTER MANAGER Work Phone: noPark[facility] CenterCgidbwyknd01-61-8030 09:38-0500Diastolic blood volbmsog08 mm[Hg]Brenda Begum CARE CENTER MANAGER Work Phone: [facility] CenterTwnfugfkjy30-65-6455 09:38-0500Heart rate79 /min Brenda Begum CARE CENTER MANAGER Work Phone: [facility] CenterZuyxfyuldg78-85-8439 09:38-1132ZlN8% (BldA) [Mass fraction]96 %Brenda Begum CARE CENTER MANAGER Work Phone: noPark[facility] CenterXtjbufmzgd14-48-7612 09:38-0500Systolic blood obzqbkzs981 mm[Hg]Brenda Begum CARE CENTER MANAGER Work Phone: [facility] CenterHooyqoeabz33-28-8067 15:06-0500Body lwlmyl705.5 cmJemendoza Enrique CARE CENTER MANAGER Work Phone: [facility] CenterLofdljuqgv30-51-8663 15:06-0500Body mass index (BMI) [Ratio]39.14 kg/h2Ugvpkvr Didjamal CARE CENTER MANAGER Work Phone: [facility] CenterVzcjtsbdfk39-96-9912 15:06-0500Body .07 kgJemendoza Fultonion CARE CENTER MANAGER Work Phone: [facility] CenterYzufwonklw46-91-8848 15:06-0500Diastolic blood bhcpolel43 mm[Hg]Jaimee Enrique CARE CENTER MANAGER Work Phone: [facility] CenterYwfrpgsrma63-64-5164 15:06-0500Heart rate72 /min Jaimee Enrique CARE CENTER MANAGER Work Phone: [facility] CenterRsgjejytvi80-18-1485 15:06-0500Respiratory rate16 /minJaimee Enrique CARE CENTER MANAGER Work Phone: [place] [address]Ggahfmqqyb38-98-2323 15:06-5641NoT6% (BldA) [Mass fraction]99 %Jaimee Enrique CARE CENTER MANAGER Work Phone: [facility] CenterTcgwfyjxgc91-85-0839 15:06-0500Systolic blood lpydwkku707 mm[Hg]Jaimee Enrique CARE CENTER MANAGER Work Phone: [facility] CenterBbydfiromg54-41-6210 13:49-0500Body ffykmk124.5 Navid Clement CARE CENTER MANAGER Work Phone: [facility] CenterJxeojfunvu43-57-3506 13:49-0500Body mass index (BMI) [Ratio]39.87 kg/k3RlyyaVibha Clement CARE CENTER MANAGER Work Phone: [address] [address] [address]Zyezpzzhoq80-59-1237 13:49-0500Body clqasd83.88 kgVibha Clement CARE CENTER MANAGER Work Phone: noPark[facility] CenterLscslffjbo13-41-1111 13:49-0500Diastolic blood ezwlsbgr70 mm[Hg]Vibha Clement CARE CENTER MANAGER Work Phone: [place] [address]Frkdkutocr84-54-1329 13:49-0500Systolic blood yqdjlejz620 mm[Hg]Vibha Clement CARE CENTER MANAGER Work Phone: noPark[facility] CenterQldfmiznyz38-39-1781 15:12-0400Body mass index (BMI) [Ratio]39.98 kg/o3Hwhsgrauucy Cy DO Work Phone: noParkland [facility] CenterSkuzgxisva09-14-0210 15:12-0400Body uzxjcb51.16 kgChristopher Cy DO Work Phone: [place] [address]Ibhtdkratn61-24-5281 15:12-0400Diastolic blood fjofqguo57 mm[Hg]Jazmine Benoit DO Work Phone: NOParkland [facility] CenterNbicxqiktx96-87-1969 15:12-0400Heart rate92 /min Jazmine Benoit DO Work Phone: NOPark[facility] CenterLdnpfkmqhz30-10-8456 15:12-3131MvJ0% (BldA) [Mass fraction]96 %Jazmine Benoit DO Work Phone: NOP[facility] CenterVdglwnpvwq67-12-7531 15:12-0400Systolic blood wcewqvxs337 mm[Hg]Jazmine Benoit DO Work Phone: [facility]OP[facility] CenterTlinxpgglg45-90-6592 15:22-0400Body pwiljv431.5 cmDee Deea Risaliti CARE CENTER MANAGER Work Phone: [facility]OP[facility] CenterWsvdmkpacd35-07-9084 15:22-0400Body mass index (BMI) [Ratio]39.32 kg/m2Gina Risaliti CARE CENTER MANAGER Work Phone: [facility]OP[facility] CenterPmmammnvox94-61-0023 15:22-0400Body jxaerl76.52 kgGina Risaliti CARE CENTER MANAGER Work Phone: NOP[facility] CenterPomehbgihz03-42-6176 15:22-0400Diastolic blood esvobyde01 mm[Hg]Maggie Risaliti CARE CENTER MANAGER Work Phone: [facility]OP[facility] CenterQzsoeiytda97-04-7775 15:22-0400Heart rate75 /min Maggie Risaliti CARE CENTER MANAGER Work Phone: [place] [address]Rhpdkdnevo34-93-6745 15:22-3948LfH7% (BldA) [Mass fraction]97 %Maggie Risaliti CARE CENTER MANAGER Work Phone: [place] [address]Xnorajxwpq02-94-6768 15:22-0400Systolic blood edctpndp150 mm[Hg]Maggie Risaliti CARE CENTER MANAGER Work Phone: [facility]OP[facility] CenterMtejjxexlx88-40-6248 13:12-0400Diastolic blood bmnkgazi74 mm[Hg]MD Robert Newell Work Phone: [facility]09-11-2024 13:12-0400 Heart rate86 /minMD Robert Newell Work Phone: [facility]09-11-2024 13:12-0400 Respiratory rate18 /minMD Robert Newell Work Phone: [facility]09-11-2024 13:12-0400 SaO2% (BldA) [Mass fraction]96 %MD Robert Newell Work Phone: [facility]09-11-2024 13:12-0400 Systolic blood rgmmivat341 mm[Hg]MD Robert Newell Work Phone: 1(355)296-[address] [place], [place] 7883809-11-2024 09:47-0400 Body qulork395.48 cmMD Robert Newell Work Phone: 1(217)[address]09-11-2024 09:47-0400 Body .8 [degF]MD Robert Newell Work Phone: 1(154)551-[address] [place], [place] 7883809-11-2024 09:47-0400 Body lqmaux50.8 kgMD Jones Dennis Work Phone: 1(927)099-[address] [place], [place] 7883809-10-2024 11:07-0400 Body iuxitpotghk89.4 [degF]MD Robert Newell Work Phone: [phone]09-10-2024 11:07-0400 Diastolic blood mxhenmcg39 mm[Hg]MD Robert Newell Work Phone: [facility]09-10-2024 11:07-0400 Heart rate77 /min Robert Newell Work Phone: [facility]09-10-2024 11:07-0400 Respiratory rate16 /minMD Robert Newell Work Phone: [facility]09-10-2024 11:07-0400 SaO2% (BldA) [Mass fraction]94 %MD Robert Newell Work Phone: [facility]09-10-2024 11:07-0400 Systolic blood ivafzhpu962 mm[Hg]MD Robert Newell Work Phone: [facility]09-10-2024 04:58-0400 Body elovcn234.5 kgMD Dennis Work Phone: 1(767)535-75[facility]09-09-2024 18:26-0400 Body qyzmbc946.48 cmAZ Robert Newell Work Phone: 1(400)125-[address] [place], [place] 7883809-09-2024 18:26-0400 Inhaled oxygen flow rate1 L/minMD Robert Newell Work Phone: 1(945)[address]09-09-2024 16:30-0400 Diastolic blood ifjuhjuz20 mm[Hg]MD Robert Newell Work Phone: 1(005)960-[address] [place], [place] 7883809-09-2024 16:30-0400 Heart rate83 /minAZ Robert Newell Work Phone: 1(798)[address]09-09-2024 16:30-0400 Inhaled oxygen flow rate1 L/minAZ Robert Newell Work Phone: 1(268)951-[address] [place], [place] 7883809-09-2024 16:30-0400 Respiratory rate16 /minAZ Robert Newell Work Phone: 1(634)378-[address] [place], [place] 7883809-09-2024 16:30-0400 SaO2% (BldA) [Mass fraction]98 %MD Robert Newell Work Phone: 1(181)757-[address] [place], [place] 7883809-09-2024 16:30-0400 Systolic blood jyavuyrx055 mm[Hg]MD Robert Newell Work Phone: 1(451)960-[address] [place], [place] 7883809-09-2024 12:21-0400 Body ixoxxj652.48 cmMD Robert Newell Work Phone: [facility]09-09-2024 12:21-0400 Body xcbtsjseeza08.1 [degF]MD Robert Newell Work Phone: [facility]09-09-2024 12:21-0400 Body .88 kgMD Robert Newell Work Phone: 1(660)561-[address] [place], [place] 7883809-04-2024 09:54-0400 Body wvgisr098.5 cmGina Risaliti CARE CENTER MANAGER Work Phone: [facility] CenterEocdbptnpv11-04-2820 09:54-0400Body mass index (BMI) [Ratio]39.87 kg/m2Gina Risaliti CARE CENTER MANAGER Work Phone: [facility]OP[facility] CenterHpxikrtzof40-37-5489 09:54-0400Body zryfvp65.88 kgGina Risaliti CARE CENTER MANAGER Work Phone: NOP[facility] CenterScuvhvlkwg46-86-0645 09:54-0400Diastolic blood ouzryusr49 mm[Hg]Maggie Risaliti CARE CENTER MANAGER Work Phone: [facility] CenterAfapnqcpik22-83-6332 09:54-0400Heart rate71 /min Maggie Risaliti CARE CENTER MANAGER Work Phone: NOP[facility] CenterGrznmtuzcu25-34-7376 09:54-9633IkV6% (BldA) [Mass fraction]97 %Maggie Risaliti CARE CENTER MANAGER Work Phone: NOP[facility] CenterFznpfifvek75-08-6093 09:54-0400Systolic blood mm[Hg]Maggie Risaliti CARE CENTER MANAGER Work Phone: noParkland [facility] CenterPlnfcendfi03-81-9096 08:51-0400Body .[address] [place], [place] 6715903-21-2024 08:51-0400Body mass index (BMI) [Ratio]40.24 kg/m2Ely [address] [place], [place] 6715903-21-2024 08:51-0400Body wvjysl82.[address] [place], [place] 6715903-21-2024 08:51-0400Diastolic blood rmnucigc32 mm[Hg]Irasema [address] [place], [place] 6715903-21-2024 08:51-0400Systolic blood vycdimps543 mm[Hg][address]02-22-2024 10:09-0500Body .5 cmJames Mejia DO Work Phone: [facility]02-22-2024 10:09-0500 Body mass index (BMI) [Ratio]40.24 kg/g4Idxjloh Roberto DO Work Phone: [facility]02-22-2024 10:09-0500 Body olvneu86.79 kgJames Mejia DO Work Phone: [facility]02-22-2024 10:09-0500 Diastolic blood vazrglyq97 mm[Hg]James Mejia DO Work Phone: [facility]02-22-2024 10:09-0500 Heart rate72 /minWitiburcio Mejia DO Work Phone: [facility]02-22-2024 10:09-0500 Systolic blood dbwjecya64 mm[Hg]James Mejia DO Work Phone: [facility]02-15-2024 16:15-0500 Diastolic blood gdrvygqj36 mm[Hg]MD Robert Newell Work Phone: [facility]02-15-2024 16:15-0500 Heart rate70 /min Robert Newell Work Phone: [facility]02-15-2024 16:15-0500 Respiratory rate20 /minMD Robert Newell Work Phone: [facility]02-15-2024 16:15-0500 SaO2% (BldA) [Mass fraction]95 %MD Robert Newell Work Phone: [facility]02-15-2024 16:15-0500 Systolic blood jiaazscu00 mm[Hg]MD Robert Newell Work Phone: [facility]02-15-2024 12:51-0500 Body wboxjl865.48 cmMD Robert Newell Work Phone: [facility]02-15-2024 12:51-0500 Body utxbsvtdmny80.7 [degF]MD Robert Newell Work Phone: [facility]02-15-2024 12:51-0500 Body osxrll66.8 kgMD Robert Newell Work Phone: [facility]09-06-2023 09:53-0400 Body dhxixd634.02 cmRobert Veronique Newell Work Phone: mp455-1856BH-Rrbnc [facility] [address] DO Work Phone: 1(482) 215-205709-06-2023 09:53-0400Body mass index (BMI) [Ratio] 38.97 kg/o2PlvlfnRobert Newell Work Phone: mp095-5077HE-Ivwvm [facility] [address] DO Work Phone: 1(700) 358-304709-06-2023 09:53-0400Body surface area Derived from formula2.01 h5KytkdrRobert Newell Work Phone: mp103-8333KH-Gwalj [facility] [address] DO Work Phone: 1(697) 582-810809-06-2023 09:53-0400Body nxcrek48.79 kgRobert Newell Work Phone: 1(682) 497-4857209-7599CW-Ryrmy [facility] [address] DO Work Phone: 1(105) 445-135309-06-2023 09:53-0400Diastolic blood mm[Hg] Robert Newell Work Phone: 1(444) 893-8988488-4462IY-Bltdt [facility] [address] DO Work Phone: 1(284) 844-703409-06-2023 09:53-0400Heart rate68 /minRobert Newell Work Phone: mp138-7696XK-Wrgnt [facility] [address] DO Work Phone: 1(337) 451-923509-06-2023 09:53-0400Systolic blood avmahnbv12 mm[Hg] Robert Newell Work Phone: mp094-1714WQ-Zzkln [facility] [address] DO Work Phone: 1(858) 662-719808-27-2023 02:13-0400Diastolic blood cbnjocds65 mm[Hg] MD Robert Newell Work Phone: [facility]08-27-2023 02:13-0400 Heart rate68 /minMD Robert Newell Work Phone: [facility]08-27-2023 02:13-0400 Respiratory rate20 /minMD Jones Dennis Work Phone: [phone]08-27-2023 02:13-0400 SaO2% (BldA) [Mass fraction]98 %MD Robert Newell Work Phone: [facility]08-27-2023 02:13-0400 Systolic blood jdvugiea457 mm[Hg]MD Robert Newell Work Phone: 1([phone])525-[address] [place], [place] 7883808-26-2023 22:53-0400 Body uwtvec271.48 cmAZ Dennis Work Phone: 1([phone])[address]08-26-2023 22:53-0400 Body kiuykqvmktq62.7 [degF]MD Robert Newell Work Phone: 1([phone])636-[address] [place], [place] 7883808-26-2023 22:53-0400 Body stvokp62.79 kgMD Robert Newell Work Phone: [facility]08-01-2023 14:30-0400 Body cbelia413.48 cmAZ Robert Newell Work Phone: [facility]08-01-2023 14:30-0400 Body ephyvuuwfwg05.7 [degF]MD Robert Newell Work Phone: [facility]08-01-2023 14:30-0400 Body mxygyo588.6 kgAZ Robert Newell Work Phone: [facility]08-01-2023 14:30-0400 Diastolic blood aelzlttd01 mm[Hg]MD Robert Newell Work Phone: [facility]08-01-2023 14:30-0400 Heart rate73 /minMD Robert Newell Work Phone: [facility]08-01-2023 14:30-0400 Respiratory rate18 /minMD Robert Newell Work Phone: [facility]08-01-2023 14:30-0400 SaO2% (BldA) [Mass fraction]98 %MD Robert Newell Work Phone: [facility]08-01-2023 14:30-0400 Systolic blood yxrpjcjg050 mm[Hg]MD Robert Newell Work Phone: [facility]07-06-2022 10:42-0400 Body zrdeci701.02 cmRobert Veronique Newell Work Phone: [id number] [facility] [address] DO Work Phone: 1(333) 582-319607-06-2022 10:42-0400Body mass index (BMI) [Ratio]39.5 kg/x2Qwqvhdarnel Newell Work Phone: [phone]-Rcgzs [place] [employer] 250 DO Work Phone: 1(354) 518-493407-06-2022 10:42-0400Body surface area Derived from formula2.03 g7Rnihllarnel Newell Work Phone: [phone]-Ljppa [place] [facility] [address] DO Work Phone: 1(832) [phone] 10:42-0400Body ksvgio210.15 kgRobert Newell Work Phone: 1(765) [phone]-Iarhm [place] [employer] 250 DO Work Phone: 1(205) 615-459007-06-2022 10:42-0400Diastolic blood ppdkzojd93 mm[Hg] Robert Newell Work Phone: 1([phone]) [phone]-Djplu [place] [employer] 250 DO Work Phone: 1(539) 356-988307-06-2022 10:42-0400Heart rate66 /minRobert Newell Work Phone: [phone]-Cpobw [place] [facility] DO Work Phone: 1(446) 434-411307-06-2022 10:42-0400Systolic blood uapyqwse316 mm[Hg] Robert Newell Work Phone: mp196-2045NX-Tacks [place] [address] DO Work Phone: 1(862) 333-871006-27-2022 12:25-0400Body foqrtu119.48 cmAmarybel Kwon Other nortNETpeas Other 06-27-2022 12:25-0400Body mass index (BMI) [Ratio] 40.05 kg/m1XtesqKeira Kwon Other [place]peas Other 06-27-2022 12:25-0400Body ezffmxcuysj21.7 [degF]Keira Kwon Other [facility]Casper Other 06-27-2022 12:25-0400Body ieoihz50.34 kgKeira Kwon Other [place]per Other 06-27-2022 12:25-0400Diastolic blood podgslbc77 mm[Hg] Keira Kwon Other noNETpeas Other 06-27-2022 12:25-0400Respiratory rate18 /minKeira Kwon Other noCasper Other 06-27-2022 12:25-5381AqM0% (BldA) [Mass fraction]97 % Keira Kwon Other noCasper Other 06-27-2022 12:25-0400Systolic blood deqiorak037 mm[Hg] Keira Kwon Other noCasper Other 01-19-2022 11:27-0500Body jpffxy483.48 cmRobert Veronique [employer] Work Phone: 1(689) [phone]-Foafp [place] [facility]-[employer] 250 DO Work Phone: 1(569) [phone] 11:27-0500Body mass index (BMI) [Ratio] 38.96 kg/e0Povsiw L [employer] Work Phone: [phone]-Elrky [place] [facility]-[employer] 250 DO Work Phone: 1(396) 314-777401-19-2022 11:27-0500Body surface area Derived from formula1.96 l2RvsceeRobert Newell Work Phone: [phone]-Moizj [place] [employer] 250 DO Work Phone: 1(286) 195-362601-19-2022 11:27-0500Body ludzhc20.62 kgRobert Newell Work Phone: 1(196) [phone]-Icbkk [place] [employer] 250 DO Work Phone: 1(884) 346-155201-19-2022 11:27-0500Diastolic blood lnkkobtb28 mm[Hg] Robert Newell Work Phone: mp346-8346HV-Gdvsb [place] [employer] 250 DO Work Phone: 1(840) 104-994901-19-2022 11:27-0500Heart rate78 /minRobarnel Newell Work Phone: 1(543) [phone]-Gpyha [place] [employer] TechnologiesD[employer] 250 DO Work Phone: 1(236) 639-999401-19-2022 11:27-0500Systolic blood deymrvzx103 mm[Hg] Robert Newell Work Phone: [phone]-Xxaue [place] [employer] TechnologiesD[employer] 250 DO Work Phone: 1(849) [phone] 10:45273674 1Rrito Newell Work Phone: [phone]-CtvyvFederal [facility], RochesterIronroad [place] [address] [place] Work Phone: Comment on above:[id number] 10:47-0500Body ivgclw488.48 cmRrito Newell Work Phone: [facility] [place] Work Phone: 1(620) 489-697511-10-2021 10:47-0500Body mass index (BMI) [Ratio] 38.96 kg/d4XhmawrRobert Newell Work Phone: [facility] [place] Work Phone: 1(148) 393-489111-10-2021 10:47-0500Body surface area Derived from formula1.96 j3KmjlzaRobert Newell Work Phone: [facility] [place] Work Phone: 1(628) 869-623311-10-2021 10:47-0500Body omqnqo62.62 kgRobert Newell Work Phone: [facility] [place] Work Phone: 1(956) 210-348811-10-2021 10:47-0500Diastolic blood zwtbraod39 mm[Hg] Robert Newell Work Phone: [facility] [place] Work Phone: 1(444) 507-695811-10-2021 10:47-0500Heart rate82 /minRobert Newell Work Phone: [facility] [place] Work Phone: 1(854) 149-334611-10-2021 10:47-0500Systolic blood hbsfqiok571 mm[Hg] Robert Newell Work Phone: [facility] [place] Work Phone: 1(710) [phone] 12:15-0400Body .48 cmSkilo [employer] Other [employer] Only [place] Other 10-28-2021 12:15-0400Body gzgqqsixcci85.8 [degF] Florina [employer] Other [facility] Only [place] Other 10-28-2021 12:15-0400Respiratory rate18 /minSkilo [employer] Other noCasper Other 10-28-2021 12:15-2757GdB6% (BldA) [Mass fraction]97 % Florina Calix Other [employer] Other 10-20-2021 08:50-0400Body aykpym208.48 cmReferring Provider [facility]-[place] 250 DO Work Phone: 1(189) 467-559110-20-2021 08:50-0400Body mass index (BMI) [Ratio] 39.51 kg/f9Eeftqzebo Provider [facility]-[place] 250 DO Work Phone: [phone])[phone] 08:50-0400Body surface area Derived from formula1.98 m1Dspfoefud Provider [facility]-[employer] 250 DO Work Phone: [phone])[phone] 08:50-0400Body ebquqv11.98 kgReferring Provider [facility]-[place] 250 DO Work Phone: [phone] 08:50-0400Diastolic blood ascjxwom17 mm[Hg] Referring Provider [facility]-[place] 250 DO Work Phone: [phone] 08:50-0400Heart rate66 /minReferring Provider [facility]-[employer] 250 DO Work Phone: [phone] 08:50-0400Systolic blood zdicxmet422 mm[Hg] Referring Provider [facility]-[place] 250 DO Work Phone: [phone] 18:05-0400Body smfeox139.48 cmPgarima Monroe Other [employer] Other 10-15-2021 18:05-0400Body mass index (BMI) [Ratio] 39.61 kg/a7KlvqrfSusan Monroe Other [employer] Other 10-15-2021 18:05-0400Body mijomsjewij45.5 [degF]Susan Mabel Other [employer] Other 10-15-2021 18:05-0400Body uxkhsq09.25 kgSusan Monroe Other [employer] Other 10-15-2021 18:05-0400Diastolic blood wdrmvvfa38 mm[Hg] Susan Monroe Other [employer]Trans[employer]ight Only [place] Other 10-15-2021 18:05-0400Respiratory rate18 /minSusan Monroe Other [facility] Only [place] Other 10-15-2021 18:05-9343HsR3% (BldA) [Mass fraction]98 % Susan Monroe Other nort Only [place] Other 10-15-2021 18:05-0400Systolic blood claroypn903 mm[Hg] Susan Monroe Other [employer]Trans[employer]ight Only [place] Other Encounters Encounter DateEncounter TypeCare ProviderFacilityStart: 08-26-2025 End: 60-35-7802Cohxuprdw encounterRobarnel Newell MD Work Phone: NONA [facility] Internal MedicineStart: 08-25-2025 End: 47-84-0023lebtdnlfhgAogxkox J DittyFacility:[facility] Hospitaltart: 21-59-2873Ewi-patient / Non-visitLiu Campbell MD-[facility] Work Phone: Start: 08-16-2025 End: 43-44-9374Lgydli flowsheetRichard JACKSON Work Phone: NOMS [facility] OrthopaedicsStart: 08-16-2025 End: 59-13-9242Tseclb flowsDaniel JACKSON Work Phone: [facility] [place] OrthopaedicsStart: 08-16-2025 End: 86-10-5216Qlxjhahgw encounterMamarry JACKSON Work Phone: NOM[facility] OrthopaedicsStart: 08-16-2025 End: 81-33-8557piwzfelflmPSDHWSH J MEYERNot AvailableStart: 08-16-2025 End: 23-30-5703Orshtl outpatient visit 10 minutesRichard JACKSON Work Phone: NOMS [facility] OrthopaedicsComment on above:Acute pain of left shoulder (Primary Dx); S/P arthroscopy of left shoulderStart: 07-21-2025 End: 18-63-4858mptjlgvgwlJOYIL CARROLLNot AvailableStart: 07-21-2025 End: 08-88-6909Fvrumq outpatient visit 25 minutesMaggie Walter NP Work Phone: noms [place] Internal MedicineComment on above: Essential hypertension (Primary Dx); Stage 3a chronic kidney disease ([facility]-HCC); Coronary artery disease involving [place] coronary artery of [place] heart without angina pectoris ; Chronic systolic congestive heart failure (HCC); Pure hypercholesterolemia ; Moderate major depression (HCC); Acquired hypothyroidism ; Age-related osteoporosis without current pathological fracture ; Gastroesophageal reflux disease without esophagitis; Lumbar radiculopathy; Primary insomnia; Snoring; Colon cancer screening; Severe obesity (BMI 35.0-35.9 with comorbidity) ([facility]-HCC); BMI 37.0-37.9, adultStart: 07-12-2025 End: 43-91-7121Viyvdk Joey JACKSON Work Phone: NOOX [facility] OrthopaedicsStart: 07-12-2025 End: 56-96-9418Auniby Joey JACKSON Work Phone: NOMS [facility] OrthopaedicsStart: 07-12-2025 End: 43-53-0128Ywzyjj follow up visit related to original Renee JACKSON Work Phone: noms D[facility]io OrthopaedicsComment on above:S/P arthroscopy of left shoulder (Primary Dx)Start: 07-12-2025 End: 73-76-8654wobtyypyrlSMBHTEF J MEYERNot AvailableStart: 06-11-2025 End: 56-22-8232Yrddbu Joey JACKSON Work Phone: noms FB ORTHOPAEDICSStart: 06-11-2025 End: 32-23-9238Lwqdqa Joey JACKSON Work Phone: noms FB ORTHOPAEDICSStart: 06-11-2025 End: 22-45-0982Jwjnct follow up visit related to original Renee JACKSON Work Phone: noms FB ORTHOPAEDICSComment on above:S/P arthroscopy of left shoulder (Primary Dx)Start: 06-11-2025 End: 89-79-3276bcquecpwjzNXGVWBP J MEYERNot AvailableStart: 06-01-2025 End: 71-45-4367rakycsdhbfPBERB CARROLLNot AvailableStart: 06-01-2025 End: 29-86-0293Ruqhku outpatient visit 25 minutesSummer Carmel JACKSON Work Phone: noms SWS IMComment on above:Acute left-sided low back pain with bilateral sciatica (Primary Dx); Dysuria; Coronary artery disease involving [place] coronary artery of [place] heart without angina pectorisStart: 05-17-2025 End: 78-37-8636Lmwypjizk encounterSammantsammie Courtney PTNOMS CI PTComment on above:PT PO Eval (Need to send referral back once Eval scheduled for Auth)Start: 05-14-2025 End: 53-61-5699Xjsuhe Joey JACKSON Work Phone: noms FB ORTHOPAEDICSStart: 05-14-2025 End: 43-29-3405Vwoltf Joey JACKSON Work Phone: noms FB ORTHOPAEDICSStart: 05-14-2025 End: 59-15-9904Wydmny follow up visit related to original Renee JACKSON Work Phone: noms FB ORTHOPAEDICSComment on above:S/P arthroscopy of left shoulder (Primary Dx)Start: 05-14-2025 End: 98-59-7296othvstgrpjMZQBVFC J MEYERNot AvailableStart: 04-30-2025 End: 75-14-3776ptgwapfctiKdadzt L HillFacility:[facility] Centertart: 04-29-2025 End: 62-01-3687NurihpKjkzk T Olsen NP Work Phone: noms FB ORTHOPAEDICSComment on above:Internal derangement of left shoulder (Primary Dx); Post-operative painStart: 04-08-2025 End: 78-98-8772tvcjwqnhcmUXHLNI C STEPANICFacility:[facility] HospitalStart: 04-02-2025 End: 04-25-4972wapiaqmulwIdkimb L HillFacility:[facility] Centertart: 33-61-3158Llvcohshm for other preprocedural examinationGEORGE C [facility] HospitalStart: 04-01-2025 End: 99-81-2128Fbiisy flowsheetRichard JACKSON Work Phone: noms SWS ORTHOStart: 04-01-2025 End: 26-93-2701Emqsiz flowsheetRichard JACKSON Work Phone: noms SWS ORTHOStart: 04-01-2025 End: 95-87-5533Wscsomj encounter procedureMamarry JACKSON Work Phone: noms SWS ORTHOComment on above:Pre-op examination (Primary Dx)Start: 04-01-2025 End: 21-97-0034Zgknbmuhmasqn examination doneMamarry JACKSON Work Phone: [facility] Work Phone: Start: 04-01-2025 End: 63-07-7821vhmemhnvuaLSVLQHP J MEYERNot AvailableStart: 02-23-2025 End: 50-53-8044Yrotousqpy hospital visit by Ary Girard Echo/[facility]asc [facility] 2[facility] CenterComment on above:Coronary artery disease, unspecified vessel or lesion type, unspecified whether angina present, unspecified whether [place] or transplanted heart; History of PTCA; History of ST elevation myocardial infarction (STEMI); Ischemic cardiomyopathy; Primary hypertension; Nonrheumatic mitral valve regurgitationStart: 02-23-2025 End: 59-73-8808cfyxtktgneORRHRTIShelby Memorial Hospitaltart: 02-12-2025 End: 10-60-2839dtqayirksgJjyrzz Hill MD Work Phone: [facility] Work Phone: Start: 02-12-2025 End: 59-72-5440Wcfmglu encounter procedureRobert Newell MD Work Phone: [facility] Work Phone: Start: 02-10-2025 End: 13-93-1939Cwoihcv encounter procedureRobert Newell MD Work Phone: [facility] Work Phone: Start: 02-10-2025 End: 02-54-3781clwzeaqmzbFfkviq Hill MD Work Phone: [facility] Work Phone: Start: 02-10-2025 End: 91-16-5361Gkjall flowsheetJr. Bernabe Hunt DO Work Phone: [facility] ORTHOStart: 02-10-2025 End: 00-16-7028Fcelhz flowsheetJr. Bernabe Hunt DO Work Phone: noms SWS ORTHOStart: 02-10-2025 End: 94-61-7003ofccoamgdeVA., BERNABE HUNTNot AvailableStart: 02-09-2025 End: 31-09-2328jpuuvqskbgND., BERNABE Watts AvailableStart: 02-03-2025 End: 02-21-0398Djbguoiot to same day surgery Lizzette Newell MD Work Phone: [facility] Work Phone: Start: 02-03-2025 End: 32-67-4889kdfrsrmwhoQduxix Hill MD Work Phone: [facility] Work Phone: Start: 01-20-2025 End: 53-85-8561Lvdktd flowsheetJr. Bernabe Sumner Stepanic DO Work Phone: noms SWS ORTHOStart: 01-20-2025 End: 34-75-6752Ggohqu flowsheetJr. Bernabe Sumner Stepanic DO Work Phone: noms SWS ORTHOStart: 01-20-2025 End: 94-82-5590kmifpyoxejYW., BERNABE KAPOORARSENIONot AvailableStart: 01-20-2025 End: 40-39-5623Fxrlzw outpatient visit 15 minutesJr. Bernabe Sumner Stepanic DO Work Phone: noms SWS ORTHOComment on above:Left shoulder pain, unspecified chronicity; Chronic left shoulder painStart: 01-19-2025 End: 47-30-5230ivpuucoetfHtiuiyxkuOhio Valley Hospital Work Phone: Start: 01-19-2025 End: 39-97-7072Dicyaeb encounter [facility] Work Phone: Start: 01-18-2025 End: 68-64-9763gayqqidbcjQCUDAT L HILLNot AvailableStart: 01-18-2025 End: 44-51-6367Lnumag outpatient visit 25 minutesRobert Newell MD Work Phone: n[facility] IMComment on above:Essential hypertension (CMS/HCC) (Primary Dx); Stage 3a chronic kidney disease (HCC) (CMS/HCC); Coronary artery disease involving [place] coronary artery of [place] heart without angina pectoris (CMS/HCC); Chronic systolic congestive heart failure (CMS/HCC); Pure hypercholesterolemia (CMS/HCC); Acquired hypothyroidism (CMS/HCC); Moderate major depression (CMS/HCC); Age-related osteoporosis without current pathological fracture (CMS/HCC); Severe obesity (BMI 35.0-39.9) with comorbidity (CMS/HCC); BMI 38.0-38.9,adult; Dysuria; Mild persistent asthmatic bronchitis without complication (CMS/HCC); Chronic left shoulder pain; Neck pain; Peripheral polyneuropathyStart: 01-06-2025 End: 36-64-9196oacyxydsmpRSLXWQXFairview Park Hospital AmbulatoryStart: 01-06-2025 End: 70-33-5186Dvawli outpatient visit 25 minutesHar[facility] DO Work Phone: uh FirelandsComment on above:Coronary artery disease, unspecified vessel or lesion type, unspecified whether angina present, unsp ecified whether [place] or transplanted heart; History of PTCA; History of ST elevation myocardial infarction (STEMI); Ischemic cardiomyopathy; Primary hypertension; Mixed hyperlipidemia; Nonrheumatic mitral valve regurgitation; Atypical chest pain; Former smoker; BMI 39.0-39.9,adultStart: 12-29-2024 End: 09-48-0106Cwbtjhyolanda Clement CARE CENTER MANAGER Work Phone: ana ESTRELLAUEStart: 12-29-2024 End: 78-25-6334Kyfmuaelmer Clement CARE CENTER MANAGER Work Phone: ana BELLEVUEStart: 12-29-2024 End: 83-56-6318axdolsqbqkWWFIU CARROLLNot AvailableStart: 12-29-2024 End: 71-36-6491Dvtlbi outpatient visit 25 Nella Clement CARE CENTER MANAGER Work Phone: ana BELLKELLYUEComment on above:Gait instability (Primary Dx); Weakness; Multilevel degenerative disc disease; PolyneuropathyStart: 12-14-2024 End: 26-28-3906Zgndtl Aletha Clement CARE CENTER MANAGER Work Phone: noms External Department UnsolicitedStart: 12-03-2024 End: 93-10-0325xypytuqmuyBAAIRW Veronique Ta AvailableStart: 12-03-2024 End: 21-19-7087Cmpcko outpatient visit 25 Wesley Begum CARE CENTER MANAGER Work Phone: noms [facility] IMComment on above:Witnessed episode of apnea (Primary Dx); Essential hypertension (CMS/HCC); Mild persistent asthmatic bronchitis without complication (CMS/HCC); Class 2 severe obesity due to excess calories with serious comorbidity and body mass index (BMI) of39.0 to 39.9 in adult (CMS/HCC); Upper respiratory tract infection, unspecified type; Mild intermittent asthma with acute exacerbation (CMS/HCC); Coronary artery disease involving [place] coronary artery of [place] heart without angina pectoris (CMS/HCC)Start: 11-12-2024 End: 46-84-4010rvitlpmienGBAAM CARRBRIANNot AvailableStart: 11-12-2024 End: 55-29-4534Fnjbtr flowsLuislit Mendozaoll CARE CENTER MANAGER Work Phone: noms [place] [address] [facility]TEStart: 11-12-2024 End: 79-32-5865Voybfr Angelalit Clement CARE CENTER MANAGER Work Phone: noms [place] [address]TEStart: 10-21-2024 End: 60-37-3405Vbsabp outpatient visit 15 minutesJaimee Enrique CARE CENTER MANAGER Work Phone: noms SWS IMComment on above:Dysuria (Primary Dx); Acute cystitis with hematuria; Acquired hypothyroidism (CMS/HCC); Moderate major depression (CMS/HCC); Coronary artery disease involving [place] coronary artery of [place] heart without angina pectoris ([facility]/HCC)Start: 10-21-2024 End: 23-02-9473yzxnmyltmuFDEAXSC L DIDIONNot AvailableStart: 10-20-2024 End: 25-92-9759Mybqnag encounter procedureRobert Newell MD Work Phone: [facility] [address] [facility] Work Phone: Start: 10-20-2024 End: 54-94-3387qdqvtehamaKxpvsp Hill MD Work Phone: [facility] Work Phone: Start: 10-12-2024 End: 72-92-4841Whynoz Gadiel Clement CARE CENTER MANAGER Work Phone: noms [place] [facility]TEStart: 10-12-2024 End: 16-94-7347Zolxbo ogKatie Clement CARE CENTER MANAGER Work Phone: noms [place] [address]TEStart: 10-12-2024 End: 51-89-9598Wmcdle outpatient visit 25 minutesVibha Clement CARE CENTER MANAGER Work Phone: noms [place] R[address]TEComment on above:Gait instability (Primary Dx); Polyneuropathy; Multilevel degenerative disc diseaseStart: 10-12-2024 End: 23-51-8863ilhyxlayosIUSZH CARROLLNot AvailableStart: 09-15-2024 End: 63-30-3018Hfygxm outpatient new 45 minutesChristopher Cy DO Work Phone: NOQF [place] ROUTEComment on above:Degeneration of intervertebral disc of lumbar region with discogenic back pain and lower extremity pain (Primary Dx); Polyneuropathy; Long-term use of high-risk medicationStart: 09-15-2024 End: 38-60-3874drvnkjxylvYJNODLEIUNK HASSETTNot AvailableStart: 09-15-2024 End: 57-62-1829Ifiywa flowsheetChristopher Cy DO Work Phone: noms [address] [address]TEStart: 09-15-2024 End: 19-85-2469Csdgab flowsheetChristopher Cy DO Work Phone: noms [place] [address]TEStart: 09-08-2024 End: 12-54-7133Ilvzdi flowsheetNatalie A Felter ART SALES CONSULTANT-CREDIT AND LOAN COLLECTIONS SUPERVISOR Work Phone: NONJ SWS DERMStart: 09-08-2024 End: 18-84-5526Ehibuq flowsheetNatalie A Felter ART SALES CONSULTANT-CREDIT AND LOAN COLLECTIONS SUPERVISOR Work Phone: NOII SWS DERMStart: 09-08-2024 End: 73-30-4283uiwwdrbfdwGNCEWMP A FELTERNot AvailableStart: 09-08-2024 End: 70-62-0304Ntfraa outpatient new 20 minutesNatalie A Felter ART SALES CONSULTANT-CREDIT AND LOAN COLLECTIONS SUPERVISOR Work Phone: noms SWS DERMComment on above:Inflamed seborrheic keratosis; Skin tagStart: 09-07-2024 End: 37-71-0431Dpqiew flowsDieter Baeza PT Work Phone: noMS CI PTStart: 09-07-2024 End: 00-31-0020Aiusxw flowsDieter Baeza PT Work Phone: noMS CI PTStart: 09-07-2024 End: 50-21-9850ipqryqcjlmYmzdbn T Blackston PT Work Phone: noMS CI PTComment on above:Pain in both lower extremities (Primary Dx); ParesthesiaStart: 09-04-2024 End: 51-16-5976Ealzdp flowsheetMelissa Kelbley PTANOMS CI PTStart: 09-04-2024 End: 30-89-7022Jxwfev flowsheetMelissa Kelbley PTANOMS CI PTStart: 09-04-2024 End: 95-20-3497wgrwtcnjmbMpbtmbo Kelbley PTANOMS CI PTComment on above:Pain in both lower extremities (Primary Dx); ParesthesiaStart: 09-01-2024 End: 56-75-5627Oehmss flowsheetMelissa Kelbley PTANOMS CI PTStart: 09-01-2024 End: 04-78-3420Wdlzvf flowsheetMelissa Kelbley PTANOMS CI PTStart: 09-01-2024 End: 93-84-9904ayjdjqpullOthuoyz Kelbley PTANOMS CI PTComment on above:Pain in both lower extremities (Primary Dx); ParesthesiaStart: 08-27-2024 End: 23-58-5551Xtpderucd encounterVimal Baeza PT Work Phone: noMS CI PTComment on above:PT Initial Eval (Contacted and offered scheduling PT Eval and she said she has not gotten schedule yet for work yet. I noted if no hear back by 09/02, I would contact.); re: PT (I had tried to contactbut had to lm noting per her last PT (same referring provider / same diagnosis codes) can be continued onto the most recent referral B/L LE's (right / left leg) and paresthesia. We could schedule a reassess and cont on.); FU (She called back and I confirmed w/ Vimal that we can cont off previous re ferral. I scheduled her 09/01 @ 1:30 w/ Evon Vela, CASINO SHIFT MANAGER.)Start: 08-18-2024 End: 21-40-3755Xpfkcs outpatient visit 25 minutesMaggie Walter CARE CENTER MANAGER Work Phone: noms SWS IMComment on above:Chest pain, unspecified type (Primary Dx); Syncope, unspecified syncope type; Bradycardia; Acute non-recurrent frontal sinusitis; PolyneuropathyStart: 08-18-2024 End: 55-01-5171nyvptrrgfeAIVM Kelli RISALITINot AvailableStart: 08-15-2024 End: 31-98-8190icnntisngrLI Robert Newell Work Phone: [facility] Work Phone: Start: 08-15-2024 End: 93-99-8994Nfvywsp encounter procedureMD Robert Newell Work Phone: [facility]-Electrodiagnostics Work Phone: Start: 08-12-2024 End: 08-14-5319Sbvirlnta department patient visitMD Robert Newell Work Phone: [facility]-Emergency Room Work Phone: Start: 86-27-2793Qif-patient / Non-visitMD Robert Newell Work Phone: [facility]-Heart Rhythm ClinicStart: 08-10-2024 End: 15-44-5766Ygnbkrqyau and management of inpatientMD Robert Newell Work Phone: [facility] [place] [facility] Work Phone: Start: 08-10-2024 End: 59-35-5013ccialguyizr encounterMD Robert Newell Work Phone: [facility] Work Phone: Start: 08-05-2024 End: 70-04-2357Isilfx Vivienne JACKSON Work Phone: noms External Department UnsolicitedStart: 08-05-2024 End: 44-48-7942Rmveizsde encounterEvon Vela PTANOMS CI PTComment on above: PT cx (She had called and lm re: PT today and needed to cx.); FU (Called to recommend rs. She said she will get her work schedule tomorrow and will contact w/ availability.); FU x2 (Called to rs and she said that the schedule will be hung up tonight and she will contact 08/10 w/ availability.); FU x3(final) (Contacted and she noted off Sat & ; she requested to schedule vwub-xe-nbwn.)Start: 08-05-2024 End: 09-94-0977Hkabmlu encounter Yohan Walter NP Work Phone: [facility] Work Phone: Start: 08-05-2024 End: 50-42-4904Ygdlhtzo preventive med est patient 40-64yrsGcaitlin Walter CARE CENTER MANAGER Work Phone: noms SWS IMComment on above:Annual physical exam (Primary Dx); Essential hypertension (CMS/HCC); Stage 3a chronic kidney disease (HCC) (CMS/HCC); Chronic systolic congestive heart failure (CMS/HCC); Coronary artery disease involving [place] coronary artery of [place] heart without angina pectoris (CMS/HCC); Moderate major depression (CMS/HCC); Pure hypercholesterolemia (CMS/HCC); Changing skin lesion; Colon cancer screening; Weakness of both lower extremitiesStart: 07-30-2024 End: 94-48-2418hgfphgkicmHsrvhr T Blackston PT Work Phone: NOMS CI PTComment on above:Pain in both lower extremities (Primary Dx); ParesthesiaStart: 07-30-2024 End: 84-77-6236Ohzilp Stephie Baeza PT Work Phone: noms CI PTStart: 07-30-2024 End: 73-88-1862Zvaolq Stephie Baeza PT Work Phone: noms CI PTStart: 07-23-2024 End: 83-48-7566Gyunnm flowsheetChristopher Cy DO Work Phone: noms [address] [facility]TEStart: 07-23-2024 End: 07-63-1005Ouwwds flowsheetChristopher Cy DO Work Phone: noms [place] [facility]TEStart: 07-23-2024 End: 07-98-4454Locdomt encounter procedureChristopher Cy DO Work Phone: noms [place] ROUTEComment on above:Pain in both lower extremities; ParesthesiaStart: 07-08-2024 End: 36-75-2007nxgfnwqphyXNACH [facility] AmbulatoryStart: 02-20-2024 End: 96-03-0311Frokpctjau hospital visit by Ary Girard Echo/Vasc Room [address] [place], [place] [address]Comment on above:Coronary artery disease, unspecified vessel or lesion type, unspecified whether angina present, unspecified whether [place] or transplanted heart; History of PTCA; Ischemic cardiomyopathy; Hypertension, unspecified type; Other fatigue; Difficulty breathingStart: 01-23-2024 End: 16-37-1468Ltabtv outpatient visit 25 minutesOmidcarmel Mejia DO Work Phone: uh [facility] above:Coronary artery disease, unspecified vessel or lesion type, unspecified whether angina present, unsp ecified whether [place] or transplanted heart; History of PTCA; History of ST elevation myocardial infarction (STEMI); Ischemic cardiomyopathy; Hypertension, unspecified type; Mixed hyperlipidemia; Other fatigue; Former smoker; Difficulty breathingStart: 01-16-2024 End: 22-21-2427Rarazdflx department patient visitMD Robert Newell Work Phone: [facility] Work Phone: Start: 19-48-4860ajtnpdgbrxBf. Robert Prather [place] Facility:[id number]: 14-91-7761Cueofr outpatient visit 15 minutesRobert Piper Dennis Work Phone: [phone]-Xjlvm [facility] 250 DO Work Phone: Start: 07-27-2023 End: 50-27-0593Ouzihejas department patient visitMD Robert Newell Work Phone: [facility] Work Phone: Start: 07-02-2023 End: 42-45-9411Txtafhxek department patient visitMD Robert Newell Work Phone: [facility] Work Phone: Start: 01-15-2023 End: 86-71-6183hcsbfklytuRU JAMES MEJIAFacility:I5Ecata: 12-20-20[address] James MejiaFacility:[id number]: 12-05-2022 End: 64-90-7162gglaoigbwwWF ORBERT NEWELLFacility:V7Tjmid: 14-76-9157Ow Renewal Robert Newell Work Phone: [phone]-Kgzws [facility] 250 DO Work Phone: Start: 95-65-9684Qj RenewalRobert Newell Work Phone: [phone]-Breac [facility] 250 DO Work Phone: Start: 07-07-2022 End: 76-51-7125zryarmumwhNT JACK HAYFacility:D5Ccpsx: 06-13-2022 End: 81-30-7691zhesznnnghLjoufqu Ditty Other [place] Other Start: 56-67-7469Iffrlujbi encounterCamwilda ReeseG Referral CoordinatorStart: 52-27-2869Nmmlyf outpatient visit 25 minutesRobert Newell Work Phone: [phone]-Uuvlr [facility] 600 DO Work Phone: Start: 59-10-0522Jqjqjac encounter procedureRobert Newell Work Phone: [phone]-Tmwav [facility] 250 DO Work Phone: Start: 06-05-2022 End: 83-99-1139utzwbixbguVR DENNISFacility:A7Zwtaz: 05-28-2022 End: 38-14-9900rbbzlhmboaMvdsr Doyle Other [place] Other Start: 21-20-1376Qvhiry outpatient visit 15 minutes [facility] ClydeStart: 03-24-2022 End: 30-54-7127qfrnxvrdkyVF DOCTOR MISCFacility:A0Ibudg: 88-01-8397Ij Renewal Robert Newell Work Phone: [phone]-Eyedl [facility] 250 DO Work Phone: Start: 02-02-2022 End: 38-01-7334svefwdvtbtER ROBERT NEWELLFacility:J7Rqyng: 15-72-6344Iwkzyg outpatient visit 15 minutesRobarnel Newell Work Phone: [phone]-Zbtpk [facility] 250 DO Work Phone: Start: 99-39-7943Gpeiird encounter procedure Veronique Newell Work Phone: [phone]-Rfaog [facility] [address] [place] Work Phone: Start: 26-00-0073Ry Renewal Veronique Newell Work Phone: [phone]-Kckrz [facility] 250 DO Work Phone: Start: 58-07-3425By RenewalRobarnel Piper Dennis Work Phone: [phone]-Usdfr [facility] 250 DO Work Phone: Start: 26-27-7838Uyelyy outpatient visit 25 minutes Veronique Newell Work Phone: [facility] [place] Work Phone: Start: 51-99-0151Jgmvqg outpatient visit 15 minutes Florina Guillaume [facility] ClydeStart: 53-90-7424Ykuvvl outpatient visit 25 minutesReferring Provider UnknownEly-[facility] [facility] DO Work Phone: Start: 00-11-6730Nkvjmkm encounter procedureReferring Provider UnknownEly-[facility] [facility] DO Work Phone: Start: 58-82-0723Xlmwev outpatient visit 15 minutes Susan MabelFPG [facility] ClydeStart: 08-21-2021 End: 11-74-7485noqrvgbklsOrzapeo Scally Other [place] Other Start: 87-24-7905Ediqgmgre encounterMercy [facility] Hospital Care ClinicStart: 06-07-2017 End: 81-71-4781XnwxymfdafJWRCXBEFWayne Hospital Procedures DateProcedureProcedure DetailPerforming ClinicianStart: 04-17-9605Tdmuyasjrmx Robert Newell MD Work Phone: Start: 82-08-3808Jjqs tthrc r-t 2d w/wom-mode compl spec&colr Nathalie Mejia DO Work Phone: Start: 76-41-2459T-ray of cervical spineRobert Newell MD Work Phone: Start: 76-10-9880Cihxwjdq injection of lumbar spine using fluoroscopic guidanceRobert Newell MD Work Phone: Start: 11-24-7184Kadgk shoulder complete minimum 2 viewsJr. Bernabe Hunt DO Work Phone: Start: 85-60-0782Glhke of free thyroxineRobert Newell MD Work Phone: Start: 71-76-0589WSTNUAY TRACT INFECTION (HTRX)Robert Newell MD Work Phone: Start: 08-78-6868Nfeccntgmup [Units/volume] in Serum or PlasmaEly 2Start: 10-09-5933Ucphmrjuoqj antibodies anaVibha Clement CARE CENTER MANAGER Work Phone: Start: 36-81-1114Yetyjgkh kinase totalVibha Clement CARE CENTER MANAGER Work Phone: Start: 96-16-3834HSOL DISEASE SEROLOGY W/REFLEXVibha Clement CARE CENTER MANAGER Work Phone: Start: 27-79-9020AFTMMLX ELECTRO.,Connor Clement CARE CENTER MANAGER Work Phone: Start: 01-61-2037Vvsko dip stick/tablet rgnt non-auto w/o micrscpJessica L Didion CARE CENTER MANAGER Work Phone: Start: 38-67-1360NK lumbar spine wo Alejandro Newell MD Work Phone: Start: 54-35-1731YH pre/post mri xrayRobert Newell MD Work Phone: Start: 27-23-7338JSXBGKTJTZJ SKIN LESIONNatalie A Felter ART SALES CONSULTANT-CREDIT AND LOAN COLLECTIONS SUPERVISOR Work Phone: Start: 03-07-2046Hkkkl chest X-rayMD Robert Newell Work Phone: Start: 63-70-2851ZBCY-CoV-2, Influenza & RSV (PCR)MD Robert Newell Work Phone: Start: 58-90-2984Qmczg nucleic acid assayRobert Newell MD Work Phone: Start: 90-76-4962Lwkce chest X-rayMD Robert Newell Work Phone: Start: 96-69-2787Dspkvqhc blood count with white cell differential, automatedAshlyn JACKSON Work Phone: Start: 48-54-2982Vyzduitncvcci metabolic Wilfredo JACKSON Work Phone: Start: 64-61-8506Sxzbt panelSruth JACKSON Work Phone: Start: 21-01-3547Acznx dip stick/tablet reagent auto microscopyAshlyn JACKSON Work Phone: Start: 07-23-2024 End: 35-70-7368Putlwj emg ea extremty w/paraspinl area completeChristopher Cy DO Work Phone: Start: 51-22-2507TdpbkaqnvaiUpbc Risaliti CARE CENTER MANAGER Work Phone: Start: 23-09-5878Bsfysdctwyi [Units/volume] in Serum or PlasmaWilliam Roberto DO Work Phone: Start: 46-42-0403Jcns tthrc r-t 2d w/wom-mode compl spec&colr dWilliam S Roberto DO Work Phone: Start: 98-30-6135VMMY-CoV-2, Influenza & RSV (PCR)MD Robert Newell Work Phone: Start: 50-45-9120Zsvyw chest X-rayMD Robert Newell Work Phone: Start: 20-57-7551Ovxkdmajdic [Units/volume] in Serum or PlasmaWilliam Roberto DO Work Phone: Start: 32-82-1436Hafxwoc of percutaneous transluminal coronary angioplastyHistory of PTCAWilliam Roberto DO Work Phone: Start: 92-15-9308QI of head without contrastMD Robert Newell Work Phone: Start: 55-36-1477TtpqixjfvmkPflikny Roberto DO Work Phone: Start: 06-19-2023H/O: hysterectomyStatus post hysterectomyGina Risaliti CARE CENTER MANAGER Work Phone: Start: 11-29-2021 End: 12-26-2023H/O: hysterectomyHistory of hysterectomyGina Risaliti CARE CENTER MANAGER Work Phone: Start: 28-96-0870JcnafqersjujtrpyGnkkev Veronique Newell Work Phone: Start: 36-67-7819Bgtkb 1996 panel - Serum or Plasma James Mejia DO Work Phone: AppendectomyReferring Provider UnknownCataract surgery Referring Provider UnknownCesarean sectionReferring Provider Unknown CholecystectomyReferring Provider UnknownElbow joint operationsReferring Provider UnknownHistory of percutaneous transluminal coronary angioplastyHistory of PTCARoscot Newell Work Phone: History of percutaneous transluminal coronary angioplastyHistory of PTCMason Mejia DO Work Phone: History of percutaneous transluminal coronary angioplastyHistory of PTCAEly 2History of percutaneous transluminal coronary angioplastyHistory of PTCAWitiburcio Mejia DO Work Phone: History of percutaneous transluminal coronary angioplastyHistory of PTCAEly 2History of placement of stent for coronary artery diseaseS/P drug eluting coronary stent placementReferring Provider Unknown HysterectomyReferring Provider UnknownOperative procedure on handReferring Provider UnknownOperative procedure on kneeReferring Provider UnknownProcedure on neckReferring Provider UnknownTotal colonoscopyReferring Provider Unknown Plan of Treatment DateCare ActivityDetailAuthorStart: 79-28-7705Fhgmbgjak for malignant neoplasm of colonNOOR HealthcareStart: 18-50-7633Rqudk panelLipid PanelSumma Health [facility] Campus: 89-29-4885ZzzzptnnoqglbsioVaigvlrirohxfuEavklguegc [facility] ClevelandStart: 01-26-2026 End: 70-35-6195Wkglfjo encounter /25/2026 1:00 PM EST Office Visit [facility] [address] [place] [address] [facility] [place] [facility] MedicineStart: 31-86-3756Ueikmhc stimulating hormone measurementMemorial Health System [facility]: 01-17-2026 End: 103190-pxxvbpfrodxioi D3 [Mass/volume] in Serum or PlasmaVitamin D 25 hydroxy Total Lab Routine Stage 3a chronic kidney disease (CMS-HCC) Expected: 01/17/2026 (Approximate), Expires: 07/16/2026NOMS HealthcareComment on above: Expected: 01/17/2026 (Approximate), Expires: 07/16/2026Start: 01-17-2026 End: 01-57-5666Sagteljqtnumq metabolic 2000 panel - Serum or PlasmaComprehensive metabolic panel Lab Routine Essential hypertension Stage 3a chronic kidney disease ([facility]-HCC) Expected: 01/17/2026 (Approximate), Expires: 07/16/2026[facility] Work Phone: Comment on above:Expected: 01/17/2026 (Approximate), Expires: 07/16/2026Start: 01-17-2026 End: 20-60-5185Tokqnnwryw.intact [Mass/volume] in Serum or PlasmaPTH, intact Lab Routine Stage 3a chronic kidney disease ([facility]-HCC) Expected: 01/17/2026 (Approximate), Expires: 07/16/2026NOMS HealthcareComment on above:Expected: 01/17/2026 (Approximate), Expires: 07/16/2026Start: 01-17-2026 End: 69-85-5998Jkzygcomz [Moles/volume] in Serum or PlasmaPhosphorus Lab Routine Stage 3a chronic kidney disease ([facility]-HCC) Expected: 01/17/2026 (Approximate), Expires: 07/16/2026NOMS HealthcareComment on above:Expected: 01/17/2026 (Approximate), Expires: 07/16/2026Start: 01-17-2026 End: 68-69-2796Lznratfchxf [Units/volume] in Serum or PlasmaTSH Lab Routine Acquired hypothyroidism Expected: 01/17/2026 (Approximate), Expires: 07/16/2026 NOMS HealthcareComment on above:Expected: 01/17/2026 (Approximate), Expires: 07/16/2026Start: 10-14-2025 End: 76-42-1736Cvbadaz encounter /13/2025 10:30 AM EST Office Visit [facility] [address] [place] [address] Richard Camarena, PA [address] [place] [address] [facility] OrthopaedicsStart: 09-13-2025 End: 77-95-2334Pcfhsrj encounter zjyxqwuzn25/13/2025 1:00 PM EDT Office Visit [facility] [address] [facility] [address] [place] [address] Melanie Tracy, ART SALES CONSULTANT-CREDIT AND LOAN COLLECTIONS SUPERVISOR [address] [place] [address] [facility]Start: 76-49-6536PygmjfdogKeenan Private Hospitaltart: 08-16-2025 End: 54-51-0480Bsgmpad encounter lacheftru64/15/2025 10:30 AM EDT [facility] [address] [place] [address] Richard Camarena, PA [address] [place] [address] NOMShane [facility]ard OrthopaedicsStart: 11-74-7754Blkvdvcfy vaccinationNOOR HealthcareStart: 11-25-8118Jzvqevilk for malignant neoplasm of breastMammogramNOOR HealthcareStart: 07-21-2025 End: 60-62-7282Ecvophj encounter procedureNOMS SWS IMStart: 07-18-2025 End: 60-33-2090FSM W Auto Differential panel - BloodCBC and differential Lab Routine Stage 3a chronic kidney disease (HCC) ([facility]/HCC) Expected: 07/18/2025, Expires: 01/18/2026[facility] Work Phone: Comment on above:Expected: 07/18/2025, Expires: 01/18/2026Start: 07-18-2025 End: 38-43-1118Hdjpyomsavdut metabolic 2000 panel - Serum or PlasmaComprehensive metabolic panel Lab Routine Essential hypertension (CMS/HCC) Expected: 07/18/2025, Expires: 01/18/2026NOOR HealthcareComment on above:Expected: 07/18/2025, Expires: 01/18/2026Start: 07-18-2025 End: 90-11-5067Uwapp 1996 panel - Serum or PlasmaLipid panel Lab Routine Pure hypercholesterolemia ([facility]/HCC) Expected: 07/18/2025, Expires: 01/18/2026[facility] HealthcareComment on above:Expected: 07/18/2025, Expires: 01/18/2026Start: 07-18-2025 End: 60-34-9445Wwnaoeymvyc [Units/volume] in Serum or PlasmaTSH Lab Routine Acquired hypothyroidism ([facility]/HCC) Expected: 07/18/2025, Expires: 01/18/2026[facility] HealthcareComment on above:Expected: 07/18/2025, Expires: 01/18/2026Start: 07-18-2025 End: 30-13-3341Gfltyapem (T4) free [Mass/volume] in Serum or PlasmaT4, free Lab Routine Acquired hypothyroidism ([facility]/HCC) Expected: 07/18/2025, Expires: 01/18/2026[facility] HealthcareComment on above:Expected: 07/18/2025, Expires: 01/18/2026Start: 07-16-2025 End: 54-56-3791Amzmrsj encounter qfudzjpul92/15/2025 10:30 AM EDT Office Visit [facility] [address] [place] [address] Richard Camarena PA [address] [place] [address] [facility]ICSStart: 07-12-2025 End: 72-28-2597Qgrgkjq encounter ayddlujlw53/11/2025 10:45 AM EDT Office Visit [facility] [address] [facility] [address] [place] [address] Richard Camarena PA [address] [place] [address] S/P arthroscopy of left shoulder (Primary Dx)NOMShane Girard OrthopaedicsComment on above:S/P arthroscopy of left shoulder (Primary Dx)Start: 38-13-8889Ebieqgl stimulating hormone measurementTSH Level [facility] HospitalStart: 06-11-2025 End: 33-35-5042Qfmgmei encounter procedureNOMS FB ORTHOPAEDICSComment on above: S/P arthroscopy of left shoulder (Primary Dx)Start: 05-14-2025 End: 88-10-3159Cwgilrx encounter procedureNOMS FB ORTHOPAEDICSComment on above: S/P arthroscopy of left shoulder (Primary Dx)Start: 04-01-2025 End: 45-04-5754Sjvhkeg encounter zwgaumvyq60/01/2025 10:30 AM EDT Office Visit [facility] [address] [place] [phone] Richard Camarena PA [address] [place] [address] Pre-op examination (Primary Dx)NOMS SWS ORTHOComment on above:Pre-op examination (Primary Dx)Start: 49-52-3658Umkkpgoczvdzebqa EchocardiogramSumma Health [facility] Campus: 02-10-2025 End: 92-29-8203Ogwwobb encounter procedureNOMS SWS ORTHOComment on above:Left shoulder pain, unspecified chronicity (Primary Dx); Chronic left shoulder painStart: 44-33-2589VavvbarmuFort Hamilton Hospital Start: 02-02-2025 End: 01-23-9613Kutrgce encounter gspwyquwg70/04/2025 3:40 PM EST Office Visit [facility] [address] [place] [address] Vibha Clement NP [address] [place] [address] MI[facility] BEARtart: 01-20-2025 End: 55-79-5585IL Shoulder - left WO contrastMR shoulder left wo IV contrast Imaging Routine Chronic left shoulder pain Expected: 01/20/2025 (Approximate), Expires: 01/20/2026[facility] Work Phone: Comment on above:Expected: 01/20/2025 (Approximate), Expires: 01/20/2026Start: 01-18-2025 End: 15-80-5868Bbbpwbe encounter /17/2025 1:00 PM EST [facility] [address] [place] [address] Robert Newell MD [address] [place] [address] [facility] IMStart: 01-06-2025 End: 41-06-8532SM Heart TransthoracicTransthoracic Echo Complete Echocardiography Routine Coronary artery disease, unspecified vessel orlesion type, unspecified whether angina present, unspecified whether [place] or transplanted heart History of PTCA History of ST elevation myocardial infarction (STEMI) Ischemic cardiomyopathy Primaryhypertension Nonrheumatic mitral valve regurgitation Expected: 01/06/2025 (Approximate), Expires: 01/06/2027[facility] Work Phone: Comment on above:Expected: 01/06/2025 (Approximate), Expires: 01/06/2027Start: 12-29-2024 End: 75-68-3794Vtpzsou encounter procedureNOMERCY [facility]ALTH [facility] ROUTEStart: 12-29-2024 End: 07-80-3352Epqzjmrvo 1996 panel - SerumHepatitis panel, acute Lab Routine Polyneuropathy Expected: 12/29/2024 (Approximate), Expires: 12/29/2025NOOR HealthcareComment on above:Expected: 12/29/2024 (Approximate), Expires: 12/29/2025Start: 12-29-2024 End: 88-44-4970VZZ-1/HIV-2 antigen/antibody combination immunoassayHIV-1 and HIV-2 antibodies Lab Routine Polyneuropathy Expected: 12/29/2024 (Approximate), Expires: 12/29/2025NOOR HealthcareComment on above:Expected: 12/29/2024 (Approximate), Expires: 12/29/2025Start: 12-29-2024 End: 39-59-3602Cforna Ab [Presence] in Serum by RPRRPR Lab Routine Polyneuropathy Expected: 12/29/2024 (Approximate), Expires: 12/29/2025[facility] Work Phone: comment on above:Expected: 12/29/2024 (Approximate), Expires: 12/29/2025Start: 12-29-2024 End: 91-27-8745Cikscixvlp factor [Units/volume] in Serum or PlasmaRheumatoid factor Lab Routine Polyneuropathy Expected: 12/29/2024 (Approximate), Expires: 12/29/2025NOMS HealthcareComment on above:Expected: 12/29/2024 (Approximate), Expires: 12/29/2025Start: 76-38-8981Pffuczv stimulating hormone measurementTSMangum Regional Medical Center – MangumStart: 11-12-2024 End: 05-88-1448Fkbkhfu encounter procedureNOMERCY [facility]ALTH [facility] ROUTEComment on above:ArrivedStart: 10-12-2024 End: 47-20-7260Lgwmerljz (Vitamin B12) [Mass/volume] in Serum or PlasmaVitamin B12 Lab Routine Polyneuropathy Expected: 10/12/2024 (Approximate), Expires: 10/12/2025[facility] Work Phone: comment on above:Expected: 10/12/2024 (Approximate), Expires: 10/12/2025Start: 10-12-2024 End: 31-14-6101Ueqaiioqqj A1c/Hemoglobin.total in BloodHemoglobin A1c Lab Routine Polyneuropathy Expected: 10/12/2024 (Approximate), Expires: 10/12/2025 NOMS HealthcareComment on above:Expected: 10/12/2024 (Approximate), Expires: 10/12/2025Start: 10-12-2024 End: 81-02-6931VUUI, TOTAL AB WITH REFLEX ([facility])LYME, TOTAL AB WITH REFLEX ([facility]) Lab Routine Polyneuropathy Expected: 10/12/2024 (Approximate), Expires: 10/12/2025NOMS HealthcareComment on above:Expected: 10/12/2024 (Approximate), Expires: 10/12/2025Start: 10-12-2024 End: 57-71-7745Ttgmwjj Ab [Titer] in Serum by ImmunofluorescenceANA Lab Routine Polyneuropathy Expected: 10/12/2024 (Approximate), Expires: 10/12/2025NOOR HealthcareComment on above:Expected: 10/12/2024 (Approximate), Expires: 10/12/2025Start: 10-12-2024 End: 29-87-8117Vdtnmyq electrophoresis, serumProtein electrophoresis, serum Lab Routine Polyneuropathy Expected: 10/12/2024 (Approximate), Expires: 10/12/2025 NOMS HealthcareComment on above:Expected: 10/12/2024 (Approximate), Expires: 10/12/2025Start: 10-12-2024 End: 62-49-1164Zqyijnx B8Sqnwfaw B6 Lab Routine Polyneuropathy Expected: 10/12/2024 (Approximate), Expires: 10/12/2025NOOR HealthcareComment on above: Expected: 10/12/2024 (Approximate), Expires: 10/12/2025Start: 10-12-2024 End: 27-99-2212Yhjkfpg encounter iwklaktdi27/11/2024 1:15 PM EST Office Visit [facility] [address] [place] [address] Jazmine Benoit, [address] [place] [address] [facility] ROUTEStart: 09-15-2024 End: 94-86-5757Yqkldmg encounter procedureNOMERCY [facility]ALTH [facility]INGS [facility] ROUTEComment on above:ArrivedStart: 09-15-2024 End: 04-67-0957Ooqbdr, serumCopper, serum Lab Routine Polyneuropathy Long-term use of high-risk medication Expected: 09/15/2024(Approximate), Expires: 09/15/2025[facility] Work Phone: comment on above:Expected: 09/15/2024 (Approximate), Expires: 09/15/2025Start: 09-15-2024 End: 75-62-9063Qwrqlrpfaxjyrw electrophoresisImmunofixation electrophoresis Lab Routine Polyneuropathy Long-term use of high-risk medication Expected: 09/15/2024 (Approximate), Expires: 09/15/2025[facility] HealthcareComment on above: Expected: 09/15/2024 (Approximate), Expires: 09/15/2025Start: 09-15-2024 End: 58-57-6286IP Lumbar spine WO contrastMR lumbar spine wo contrast Imaging Routine Degeneration of intervertebral disc of lumbar region with discogenic back pain and lower extremity pain Expected: 09/15/2024, Expires: 09/15/2025OR HealthcareComment on above:Expected: 09/15/2024, Expires: 09/15/2025Start: 09-15-2024 End: 03-14-5416Cnloaa Ab [Presence] in Serum by RPRRPR Lab Routine Polyneuropathy Long-term use of high-risk medication Expected: 09/15/2024 (Approximate), Expires: 09/15/2025OR HealthcareComment on above:Expected: 09/15/2024 (Approximate), Expires: 09/15/2025Start: 09-15-2024 End: 46-04-6058Ncovtdpjtry [Units/volume] in Serum or PlasmaTSH Lab Routine Polyneuropathy Long-term use of high-risk medication Expected: 09/15/2024 (Approximate), Expires: 09/15/2025OR HealthcareComment on above:Expected: 09/15/2024 (Approximate), Expires: 09/15/2025Start: 09-15-2024 End: 28-36-6317Spmmmat B4Jqlxqwp B6 Lab Routine Polyneuropathy Long-term use of high-risk medication Expected: 09/15/2024 (Approximate), Expires: 09/15/2025[facility] HealthcareComment on above:Expected: 09/15/2024 (Approximate), Expires: 09/15/2025Start: 09-10-2024 End: 62-26-4717ggfazuckwh46/10/2024 10:00 AM EDT Treatment [facility] [address] [place] [address] Evon Vela, CASINO SHIFT MANAGER [facility] CI PTStart: 09-08-2024 End: 36-13-0285Sdbllru encounter mtvmyvqfp00/08/2024 1:50 PM EDT Office Visit [facility] [address] [place] [address] Chirag Ba, ART SALES CONSULTANT-CREDIT AND LOAN COLLECTIONS SUPERVISOR [address] [place] [address] [facility] SWS DERMStart: 09-07-2024 End: 23-68-8289lxhtaztona54/07/2024 10:30 AM EDT Treatment [facility] [address] [place] [address] Vimal Baeza, PT [address] [place] [address] [facility] CI PTStart: 09-03-2024 End: 37-64-7053qdavbjesiz32/03/2024 10:00 AM EDT Treatment [facility] [address] [place] [address] Daniela Velaissa, CASINO SHIFT MANAGER [facility] CI PTStart: 09-01-2024 End: 90-00-4893wovgwyedua40/01/2024 1:30 PM EDT Treatment [facility] [address] [place] [address] Daniela Velaissa, CASINO SHIFT MANAGER [facility] CI PTStart: 08-13-2024 End: 15-43-0619nualukvweg03/12/2024 11:00 AM EDT Treatment [facility] [address] [place] [address] Daniela Velaissa, CASINO SHIFT MANAGER [facility] CI PTStart: 08-12-2024 End: 35-37-1845Uknjxsb encounter oqxwrlkco29/11/2024 1:15 PM EDT Office Visit [facility] [address] [place] [address] Jazmine Benoit DO [address] [place] [address] [facility] R[facility]TEStart: 08-11-2024 Comprehensive metabolic 2000 panel - Serum or PlasmaKeenan Private Hospitaltart: 08-11-2024 End: 51-79-3689LnnvdsjlnKeenan Private Hospitaltart: 08-10-2024 End: 48-01-6161JtlzrikzkKeenan Private Hospitaltart: 41-93-6078Pqxfkkj referral for medical consultationKeenan Private Hospitaltart: 68-06-7580Xcwhkqmk admissionKeenan Private Hospitaltart: 08-05-2024 End: 00-22-6177crlkguyrjz91/04/2024 12:30 PM EDT Treatment [facility] [address] [facility] [address] [place] [address] Evon Vela, [place] [facility] CI PTStart: 80-89-2570DBPNI-19 Vaccine ( season)COVID-19 Vaccine ( season)[facility] HospitalStart: 75-51-5996Pgjqwbfcv vaccinationInfluenza Vaccine (#1)[facility] HealthcareStart: 07-28-2024 End: 92-45-8083bphkqievjg77/27/2024 11:30 AM EDT Evaluation [facility] [address] [facility] [address] [place] [address] Vimal Baeza, PT [address] [facility] [address] [place] [address] [facility] PTStart: 07-27-2024 End: 88-60-1646Ztyhrvs encounter hwhudbxxc52/26/2024 10:00 AM EDT Office Visit [place] [id number] [facility] [address] [place] [id number] Melanie Tracy, ART SALES CONSULTANT-CREDIT AND LOAN COLLECTIONS SUPERVISOR [address] [facility] [address] [place] [address] [place] HospitalStart: 07-23-2024 End: 98-87-3359Qkwdwhr encounter kjbcuaxhc81/22/2024 10:00 AM EDT Procedure Visit [facility] [address] AMRAI [id number] CyJazmine manning, DO [address] [place] [address] ArrivedNOMS GRAD[facility] STATE ROUTEComment on above:ArrivedStart: 77-39-6401Iemythmnc for malignant neoplasm of breast MammogramUnChildren's Hospital of ColumbusStart: 01-23-2024 End: 72-30-9734Oyldh 1996 panel - Serum or PlasmaLipid Panel Lab Routine Mixed hyperlipidemia Expected: 01/23/2024 (Approximate), Expires: 01/23/2025[facility] Work Phone: Comment on above:Expected: 01/23/2024 (Approximate), Expires: 01/23/2025Start: 01-23-2024 End: 99-93-1654OP Heart TransthoracicTransthoracic Echo Complete Echocardiography Routine Coronary artery disease, unspecified vessel orlesion type, unspecified whether angina present, unspecified whether [place] or transplanted heart History of PTCA Ischemic cardiomyopathy Hypertension, unspecified type Other fatigue Difficulty breathing Expected: 01/23/2024 (Approximate), Expires: 01/23/2026UnChildren's Hospital of [facility] Work Phone: Comment on above:Expected: 01/23/2024 (Approximate), Expires: 01/23/2026Start: 85-90-1792NJE, Provider: James Mejia, Status: Pen, Time: 9:50 AMFUV, Provider: James Mejia, Status: Pen, Time: 9:50 AMMP-[facility]-Dionic[facility] 250 DO Work Phone: Start: 16-89-3688TXOSX-19 Vaccine ( season) COVID-19 Vaccine ( season)[facility]: 40-01-2928Webcskuja vaccinationInfluenza Vaccine (#1)[facility]: 15-92-3084Zypqj X-ray of [facility] Start: 45-59-4648Seuxnktxkx examination of kneeXR knee LT 4V*[facility] 64-73-3783T-ray of left footXR foot LT min 3V*[facility]: 08-28-7056JG Foot - left GE 3 [facility] 40-55-3777SH Knee - left 4 [facility]: 33-26-0718EMX, Provider: James Mejia, Status: Pen, Time: 10:40 AMFUV, Provider: James Mejia, Status: Pen, Time: 10:40 AM[facility]-Dionicio 250 DO Work Phone: Start: 15-83-6372KbbmoujecaxptllyAkzrhpbwxvqczj [facility] HospitalStart: 97-51-1437ORO, Provider: Melanie Marinelli, Status: Pen, Time: 10:30 AMFUV, Provider: Melanie Marinelli, Status: Pen, Time: 10:30 [facility]Dionicio 250 [facility] Work Phone: Start: 97-26-5060JAD, Provider: James Mejia, Status: Pen, Time: 10:40 AMFUV, Provider: James Mejia, Status: Pen, Time: 10:40 [facility] Work Phone: Start: 64-00-2471DWOW, Provider: DIONICIO HHVI ULTRASOUND ,[id number], Status: Pen, Time: 10:45 AMECHO, Provider: DIONICIO HHVI ULTRASOUND 01,[id number], Status: Pen, Time: 10:45 [facility] Work Phone: Start: 33-01-8917GEL, Provider: Melanie Marinelli, Status: Pen, Time: 1:00 PMFUV, Provider: Melanie Marinelli, Status: Pen, Time: 1:00 PMMPGr[facility] Community [facility] Heart-Dionicio 250 DO Work Phone: Start: 32-55-0280EGM High Risk: (Elderly (60+) or Population) (1 - Risk 60-74 years 1-dose series)RSV High Risk: (Elderly (60+) or Population) (1 - Risk 60-74 years 1-dose series)[facility]: 79-24-2732Zhxapp Vaccines (1 of 2)Zoster Vaccines (1 of 2)[facility]: 60-20-5177Kleqmqqxc for malignant neoplasm of cervixNOMS [facility]: 64-87-6665RPlN/Tdap/Td Vaccines (1 - Tdap)DTaP/Tdap/Td Vaccines (1 - Tdap)[facility]: 59-85-8114Xamoleeoi for malignant neoplasm of cervixUnUniversity Hospitals Ahuja [facility] Center: 32-86-1566Otwcfeyxssrk vaccinationPneumococcal Vaccine (1 of 2 - PCV)[facility]: 59-93-4458Rhhkd screening for proteinCKD: Urine Protein ScreeningSumma Health [facility] Campus: 73-45-7342Pmvqguyy mellitus screeningDiabetes Screening [facility]: 73-90-5194Ymiddvkvz C screeningHepatitis C ScreeningUnUniversity Hospitals Ahuja Medical Center: 50-14-6624Gzaxltfspatg Vaccine: Pediatrics (0 to 5 Years) and At-Risk Patients (6 to 64 Years) (1 - PCV)Pneumococcal Vaccine: Pediatrics (0 to 5 Years) and At-Risk Patients (6 to 64 Years) (1 - PCV)[facility]: 09-88-4936QUE Vaccines (1 of 1 - Standard series)MMR Vaccines (1 of 1 - Standard series) [facility]: 71-18-2948PXVHR-19 Vaccine (#1)COVID-19 Vaccine (#1)[facility]: 15-82-1791Lyacgdcjxr measurementCreatinine [facility]: 41-85-5187XGY screeningHIV ScreeningSumma Health [facility]ron Campus: 1960 Potassium measurementPotassium [facility]: 72-27-8266Golttbtdm for malignant neoplasm of colonUnUniversity Hospitals Ahuja Medical Center: 26-02-3441Hfczpcqxx for osteoporosisBone Density ScanMercy Health Defiance HospitalStart: 09-98-3998Mwbhiq Adult PhysicalYearly Adult PhysicalMercy Health Defiance Hospital25-hydroxyvitamin D3 [Mass/volume] in Serum or PlasmaVitamin D 25 hydroxy Total Lab Routine Weakness of both lower extremities Ordered: 08/05/2024[facility] Work Phone: Comment on above:Ordered: 4Cardiac event recordingFort Hamilton HospitalCobalamin (Vitamin B12) [Mass/volume] in Serum or PlasmaVitamin B12 Lab Routine Weakness of both lower extremities Ordered: 08/05/2024[facility] HealthcareComment on above:Ordered: 4Patient EducationSumma Health Ctr Work Phone: Patient referralSumma Health Ctr Work Phone: URINARY TRACT INFECTION (HTRX)URINARY TRACT INFECTION (HTRX) Lab Routine Acute cystitis with hematuria Ordered: 10/21/2024[facility] [employer] Work Phone: Comment on above:Ordered: 10/21/2024XR Cervical spine Views W flexion and W extensionFort Hamilton Hospital Immunizations Immunization DateImmunizationNotesCare FbdkmmtfCmuzkwau42-66-8080Rswbfj-SklRTjwp COVID-19 Vacc 30 MCG/0.3ML Intramuscular SuspensionRobert [employer] Work Phone: [facility]01-06-2022Pfizer- BioNTech COVID-19 Vacc 30 MCG/0.3ML Intramuscular SuspensionRobert [employer] [place] Work Phone: [facility]12-29-2021Influenza, injectable, Madin Mary Canine Kidney, preservative free, quadrivalentRobert [employer] Work Phone: [facility] CenterCemrrkfhqi48-86-1553anamoaheh virus vaccine, unspecified formulationJames Mejia DO Work Phone: [facility] Work Phone: [phone] - 10 Fatuma Monroe Other [place] Only [place] Other 0467525-49-3152vqilmkfeh, seasonal, injectableReferring Provider UnknownProvidence Health [facility]ink 250 DO Work Phone: [phone]x, seasonal, injectableGina Risaliti CARE CENTER MANAGER Work Phone: [facility] CenterDpfjglumno24-49-0995qvhupehuc, injectable, quadrivalent, preservative freeReferring Provider [facility]09-26-2018influenza, seasonal, injectablePatient ObjectionParemigio Monroe Other [employer] Other influenza virus vaccine, unspecified formulationRobpresbyterian santa [facility] medical center Veronique Hill Work Phone: [phone]-Vblgz [employer] DO Work Phone: Comment on above:2008NEGATED: Highlighted row has not occurred!60-85-3190zhrwdxjpe, seasonal, injectablePatient ObjectionDeerlindaquyen Marybeth Other [facility] Payers DatePayer CategoryPayerPolicy [id number] Care (Private)[facility] .[id number]..2.7.9.603160.846018.84754-66-3861Zkumjph Health Insurance1.2.840.841553.1.647.2.7.3.390239.52863-41-6515DyqzCibola General [id number] 2.16.840.1.219644.8571[id number] 2.16.840.1.634437.3.579.[id number] 2.16.840.1.052040.3.579.2.78027-89-3418Vdybvct1583922 2.16840.1.060436.3.579.2.94779-69-4427Dkyhjhi1761525 2.840.1.499350.3.579.2.14120-64-4321Kqaiuig5784155 2.16840.1.404525.3.579.2.14598-85-6832Trpsnzl2711119 2.16840.1.578773.3.579.2.37315-66-4227Pyuwznc8848558 2.16840.1.404251.3.57[id number] 2.16840.1.147163.3.579.[id number] 2.16840.1.615767.3.579.2.92055-78-5920Qqkfqzs54717269 2.16840.1.472168.3.579.2.3452 1999Kaytehv248312408 2.16840.1.102532.3.579.2.186968-18-3317Wfdtxor57786042 2.16840.1.710764.3.579.2.680885-24-2376Oawodav84436643 2.16.840.1.659141.3.579.2.83622-38-3392Qdfmvkt51899654 2.16.840.1.407234.3.579.2.30875-08-5490Jlvgmez97957761 2.16.840.1.663708.3.579.2.85968-61-5269Khtdrpm15782087 2.16.840.1.896591.3.579.2.944338-47-0151Nsfhvej58433689 2.840.1.836318.3.579.2.723642-16-6451Isebzys92111290 2.840.1.427906.3.579.2.518242-94-6176Fxcpado29289954 2.0.1.020355.3.579.2.042219-48-3789Wkbmqui17778144 2.840.1.719642.3.579.2.740383-29-8215Kznpgwl65022105 2.840.1.347069.3.579.2.093126-56-0675Wbqhzpa7838576 2.840.1.549423.3.579.2.185616-86-0344Aeoqpta3525761 2.840.1.718519.3.579.2.434675-91-5684Szakbqr0775310 2.840.1.981435.3.579.2.365822-34-2587Dnyimig3367115 2.840.1.643843.3.579.2.524820-27-9263Pwcaxob8244764 2.840.1.705491.3.579.2.666349-06-7209Btxymrb0404646 2..0.1.530656.3.579.2.179167-59-3124Ooesqpc1221609 2..0.1.519053.3.579.2.920481-56-7525Zqxixfd5708551 2..840.1.348150.3.579.2.174757-51-9411Fhywyqa9376019 2.0.1.353032.3.579.2.052023-94-9778Gkpreyb0409870 2.0.1.469290.3.579.2.327789-88-6252Hczqith3489996 2.0.1.011074.3.579.2.350687-53-3623Ndjvkhp2157462 2.0.1.539952.3.579.2.016544-06-4774Yjmdhxl4680157 2.0.1.360732.3.579.2.515218-37-4673Wyryzpd1795105 2.0.1.185069.3.579.2.638269-73-7034Wpdqrbv7299277 2.0.1.384545.3.579.2.962626-27-5696Dqvsfbu5313231 2.0.1.097760.3.579.2.166033-53-9130Wyuwlid5408264 2.0.1.940178.3.579.2.575670-75-8572Dnlmqnn27710287 2.0.1.369529.19 UnknownUnknownAnthem /STAIX589C71015 g1785zal-admc-0g1g-y1u9-516axrq650en [id number] 2.16840.1.188052.3.579.2.348Cqcyrns42802734 2.16.840.1.941574.3.579.2.131Jazkopr87711315 2.16.840.1.782176.3.579.2.531 Lonxkqb97051696 2.16.840.1.115139.3.579.2.531Worker's CompensationIndustrial Self Ins [id number] [id number]-595s-o2039s2o8dtm Social History DateTypeDetailFacilityStart: 12-18-2023 End: 45-63-4230Egwxirne alcohol useModerate alcohol useNOOR HealthcareComment on above:very seldom;cup of coffee daily, couple cups of tea a week, pop couple times a week;Quit smoking 20 years ago;Quit 2000;socially;2-3 cups coffee / tea daily;Start: 12-18-2023 End: 68-32-0478Ryv [facility] HealthcareStart: 07-02-2023 End: 54-95-8984Asvoupi smoking status NHISEx-smoker (finding)[facility]: 07-59-8517Rnv [facility] 12-02-1970 End: 21-45-1352Dvjzvof of tobacco useCurrent smokerUnChildren's Hospital of Columbus Work Phone: Start: 12-02-1970 End: 56-15-4909Txgzuqr of tobacco useCigarette SmokerUnChildren's Hospital of [facility] Work Phone: Start: 01-23-2024 End: 89-76-8001Cvtxkoo use and exposureSmokeless tobacco non-userUnChildren's Hospital of Columbus Work Phone: Start: 01-23-2024 End: 57-04-5933Hdjtzln intakeCurrent drinker of alcohol (finding)[facility] Work Phone: Start: 34-30-0161Xhxpfvb CommentrarelyUnChildren's Hospital of Columbus Work Phone: Start: 80-47-7078Xwx Assigned At BirthNot on file [facility] Work Phone: Start: 01-13-2024 End: 98-66-9524Omngikrc to SARS-CoV-2 (event)Not sureMercy Health Defiance HospitalStart: 08-12-2024 End: 70-44-0455Pkyviaj smoking status NHISNever smoked tobacco (finding) [facility]: 30-02-8449Lmbjjks Comment1 drink less than monthly. Caffeine: Coffee, 4-5 daily. Pop, 3 cans weeklyNOMS Healthcare Start: 81-24-8019Mulgshp Comment1 drink of alcohol or less per month. Caffeine: Coffee, 4-5 daily. Pop, 3 cans weeklyNOMS HealthcareStart: 10-21-2024 End: 27-28-9063AhlQzvgbr (finding)[facility]: 83-09-4483Dnocoej CommentTwice a year. Caffeine: Coffee, 4-5 daily. Pop, 3 cans weeklyNOMS HealthcareHow often to you have a drink containing alcohol?Monthly or lessNOMS HealthcareHow many standard drinks containing alcohol do you have on a typical day?1 or 2NOMS HealthcareHow often do you have 6 or more drinks on 1 occasion?NeverNOMS Healthcare Medical Equipment Procedure CodeEquipment CodeEquipment Original TextEquipment IdentifierDates Drug-eluting coronary artery stent, xjf-kojtqisyuvivu-nikuysl-coated ()[id number] FDAStart: 56-31-1478Eapf-eluting coronary artery stent, sdp-zxwyxgbgwvmcb-rjbmali-coated()[id number] FDAStart: 08-23-2021 Goals DatePatient GoalDesired Activity/State Functional Status DfpgAqfvwbigbfYevhitFvisalhc40-77-3536Owifmfh Health Questionnaire 2 item (PHQ- 2) [Reported][facility] CenterGucfcyokox72-89-1648Bmdir score [AUDIT-C]1 06/01/2025 11:30 AM EDT Miya Devries MANOMS Tqodjxmupv56-81-9140Rsywzrksgw statusPatient at [facility] Work Phone: [phone] 310-54370933069-28-3292Avqsznmwwo statusPatient at [facility] Work Phone: [facility] Mental Status PjnpZppamcqwbjJnlmraJobvmvce24-45-8416Njmfgzfbb functionCognitive Status Patient at [facility] Work Phone: [phone]ojwfi functionCognitive Status Patient at [facility] Work Phone: Clinical Notes 09-15-2021 to 08-26-2025 Note Date & KtltGkgsXbzoafuu59-64-7459 Telephone encounter Note* Telephone Encounter - Lluvia Gonzalez - 08/26/2025 3:56 PM EDT Got the forms from the frontend engineer and will give to dr newell nurse [facility] CenterUsyeeqsmrg40-36-6056 Miscellaneous Notes* Telephone Encounter - Lluvia Gonzalez - 08/26/2025 3:56 PM EDT Got the forms from the frontend engineer and will give to dr newell nurse * Telephone Encounter - Alicia Orellana - 08/26/2025 3:53 PM EDT Pt dropped off forms to be filled out, please and thank you documented in this encounterCameron Regional Medical CenterKtdfdbvpxu77-73-1217 Telephone encounter Note* Telephone Encounter - Alicia Orellana - 08/26/2025 3:53 PM EDT Pt dropped off forms to be filled out, please and thank you [facility] CenterMdnmsazkxl91-05-9774 Miscellaneous Notes* Telephone Encounter - Tiffany Prescott - 08/16/2025 11:31 AM EDT Work note documented in this encounterCameron Regional Medical CenterVeexqfqzkf60-02-2883 Telephone encounter Note* Telephone Encounter - Tiffany Prescott - 08/16/2025 11:31 AM EDT Work note [facility] CenterVdyrdlllyg03-97-9010 History of Present illness Narrative* MANUEL Roldan - 08/16/2025 10:30 AM EDT Images from the original note were not included. Orthopedic Office note: NAME: Adela Hopkins : 1960 (EST PT) - RECHECK (L) SHOULDER S/P SCOPE @[facility] 04/30/25 (~3 MONTHS, 3 WKS) NEW INCIDENT TODAY (08/16/25) - WAS HOLDING PHONE TO READ ~30 MINS - NOTED SHAKING TO HAND WHEN HOLDING COFFEE CUP / SHOOTING PAIN TO WRIST / N/T TO FINGERS PT @TB PT WOULD LIKE TO DISCUSS RTW. CONTINUES PT / HEP - WITH IMPROVEMENT IN STRENGTH / ROM. ADMITS POSTERIOR / BICEP DISCOMFORT. DENIES RADIATION. ADMITS N/T TO FINGERS TODAY WITH INCIDENT. OCCASIONAL STIFFNESS. ADMITS POPPING / CRACKING. OCCASIONALLY WAKING HS D/T ROLLING ON ARM. TYL HS. HYDROCODONE PRN. DENIES ICING / HEATING. TENS UNIT OCCASIONALLY. Shoulder Musculoskeletal Exam Inspection Left Left shoulder inspection is normal. Ecchymosis: none Peripheral edema: none Atrophy: none Masses: none Prior incision: arthroscopic portals Incision: well-healed Palpation Left Left shoulder palpation is normal. Crepitus: no crepitus Increased warmth: none Tenderness: none Range of Motion Left Left shoulder range of motion is normal. Active ROM: normal and no pain. Active ROM comment: stiffness on last 15 degrees of motion,. Passive ROM: normal and no pain. Strength Left External rotation: 4+/5. Internal rotation: 5/5. Abduction: 4+/5. Biceps: 5/5. Triceps: 5/5. Strength additional comments: Fatigue on repetitive stressing. Neurovascular Left Radial pulse: normal and 2+ Capillary refill: <3 sec Axillary nerve sensory distribution: normal Scapula Left Left shoulder scapula is normal. Position: normal Winging: none Special Tests Left Rotator Cuff Signs Neer's test: negative Leyva test: negative Biceps/oliver Signs Speed's test: negative AC Joint Signs Active horizontal adduction pain: negative General Constitutional: appears stated age Labored breathing: no Neurological: alert and oriented x3 Orders Placed This Encounter Procedures Ambulatory referral to Physical Therapy Standing Status: Future Expected Date: 08/16/2025 Expiration Date: 02/13/2026 Referral Priority: Routine Referral Type: Consultation Referral Reason: Specialty Services Required Referral Location: [facility] Scheduling Requested Specialty: Physical Therapy Number of Visits Requested: 1 Procedures Results ICD-10-CM 1. Acute pain of left shoulder M25.512 Ambulatory referral to Physical Therapy 2. S/P arthroscopy of left shoulder Z98.890 Ambulatory referral to Physical Therapy S/p repair of rotator cuff, Biceps tenodesis and SAD Assessment & Plan Left shoulder pain Status post left shoulder arthroscopy with rotator cuff repair. Progressing well in therapy with strengthening exercises for the past 2 weeks. Concerned about lifting over 30 pounds repetitively if returning to work now. An additional 2 weeks off will be provided to continue strengthening and acclimating to work goals. Advised to avoid heavy lifting or sudden, jerky movements with the arm until further strength improvement through therapy. Numbness and tingling in the left hand Experienced numbness and tingling in the left hand after holding a book for an extended period. Hashad prior carpal tunnel release. Will monitor symptoms to determine if they persist or if this was an isolated incident. Follow-up: Follow up in 2 months to reassess progress. PROCEDURE Procedure Performed Left shoulder arthroscopy with rotator cuff repair Questions answered in laymen terms at the bedside. The diagnosis, home exercise plan and any ongoing restrictions/ recommendations reviewed. If unable to be reached in office, I recommend evaluation at nearest Emergency Room if any symptoms worsened or new symptoms develop for requiring urgent evaluation. Visit was preformed using 3225 films Co-pilot instructor speech recognition. documented in this encounterCameron Regional Medical CenterJbnajqpyfz09-75-9109 History of Present illness Narrative* Maggie Walter, CARE CENTER MANAGER - 07/21/2025 1:00 PM EDT Images from the original note were not included. Adela Hopkins is a 65 y.o. female presents with chief complaint of 6 month follow up of chronic conditions HPI: History of Present Illness The patient is a 65-year-old female here for a 6-month office visit. Back Pain and Nerve Issues She has been using gabapentin to manage her back pain and nerve issues in her legs, which occasionally cause involuntary movements. She has been on this medication, taking two tablets twice daily. She reports that gabapentin has been affecting her memory and gait. She has sufficient supply of gabapentin and does not need a refill. - Onset: Past week. - Location: Back and legs. - Character: Back pain, nerve issues causing involuntary movements. - Alleviating/Aggravating Factors: Gabapentin affects memory and gait. - Timing: Taking two tablets twice daily. Weight Loss She has been on Wegovy for weight loss since the beginning of the year and has noticed some weight reduction. - Onset: Beginning of the year. - Character: Weight reduction. Leg Cramps She has reduced her atorvastatin dosage from 80 mg to 40 mg due to leg cramps, which she tolerates well. - Onset: After reducing atorvastatin dosage. - Character: Leg cramps. - Alleviating/Aggravating Factors: Reduced atorvastatin dosage. Bruising She was advised by her environmental science program director to discontinue baby aspirin due to bruising and is currently onclopidogrel. - Onset: After discontinuing baby aspirin. - Character: Bruising. - Alleviating/Aggravating Factors: Discontinued baby aspirin, currently on clopidogrel. Sleep Disturbances She has been experiencing sleep disturbances and requires medication to aid her sleep. She has not been taking amitriptyline regularly as it makes her feel tired. She had an appointment at the sleep study lab in [place] but preferred to go to the one in [place]. However, she was not scheduled forit. - Onset: Ongoing. - Character: Sleep disturbances, tiredness from amitriptyline. - Alleviating/Aggravating Factors: Medication to aid sleep, prefers [place] sleep study lab. - Timing: Gets up at 2:00 AM or 2:30 AM. Colonoscopy She underwent a colonoscopy approximately 15 years ago and is due for another one. She has no history of polyps. She reports no chest pain or breathing difficulties. Her bowel movements are regular. - Onset: Due for another colonoscopy. - Duration: Approximately 15 years ago. - Character: No history of polyps. Marital Status: Sleep: She gets up at 2:00 AM or 2:30 AM and reports sleep disturbances. FAMILY HISTORY Her mother of colon cancer. I have reviewed and reconciled the history and medication list with the patient today. HISTORIES: PAST MEDICAL HISTORY: Past Medical History: Diagnosis Date Age-related osteoporosis without current pathological fracture 06/19/2023 Anemia 06/19/2023 Asthmatic bronchitis (HCC) 06/19/2023 CAD (coronary artery disease) Chronic pansinusitis 06/19/2023 Congestive heart failure (HCC) 06/19/2023 Essential hypertension Gastroesophageal reflux disease 06/19/2023 History of hysterectomy 11/29/2021 Hyperlipemia Hypothyroidism Ischemic cardiomyopathy 06/19/2023 Microscopic hematuria 06/10/2023 Moderate major depression ([facility]) 06/19/2023 Neuropathy Legs/feet Nonrheumatic mitral valve regurgitation 12/26/2023 Radiculopathy, lumbosacral region Stage 3a chronic kidney disease ([facility]) 06/19/2023 SURGICAL HISTORY: Past Surgical History: Procedure Laterality Date APPENDECTOMY CERVICAL FUSION SECTION, LOW TRANSVERSE CHOLECYSTECTOMY CORONARY ANGIOPLASTY WITH STENT PLACEMENT 2020 HYSTERECTOMY KNEE SURGERY Right knee scope SHOULDER SURGERY Left 2011 SHOULDER SURGERY Left 04/30/2025 LT shoulder scope - Dr Hunt SOCIAL HISTORY: Social History Tobacco Use Smoking status: Former Current packs/day: 0.00 Types: Cigarettes Start date: 12/02/1971 Quit date: 12/02/1999 Years since quittin.6 Smokeless tobacco: Never Vaping Use Vaping status: Never Used Substance Use Topics Alcohol use: Yes Comment: Twice a year. Caffeine: Coffee, 4-5 daily. Pop, 3 cans weekly Drug use: Never Depression: Not at risk (06/01/2025) PHQ-2 PHQ-2 Score: 0 FAMILY HISTORY: Family History Problem Relation Name Age of Onset Thyroid disease Mother Cancer Mother Heart disease Father Stroke Father Brain cancer Father Other (MRSA) Brother Breast cancer Mother's Sister 69 No Known Problems Maternal Grandmother Hypertension Other sibling Diabetes Other sibling MEDICATIONS: Current Outpatient Medications Medication Instructions atorvastatin (LIPITOR) 40 mg, Nightly benzonatate (Tessalon) 100 MG capsule TAKE 1 CAPSULE BY MOUTH THREE TIMES A DAY NEEDED FOR COUGH(DO NOT CRUSH OR CHEW) carvedilol (COREG) 3.125 mg, Every 12 hours citalopram (CELEXA) 40 mg, Oral, Daily clopidogrel (PLAVIX) 75 mg, Oral, Daily diclofenac sodium 3 % gel Entresto 24-26 MG tablet 1 tablet, Oral, 2 times daily levalbuterol (Xopenex HFA) 45 MCG/ACT inhaler 2 puffs, Inhalation, Every 6 hours PRN levothyroxine (SYNTHROID, LEVOXYL) 100 mcg, Oral, Daily meclizine (ANTIVERT) 25 mg, 3 times daily PRN nitroglycerin (NITROSTAT) 0.4 mg, Sublingual, Every 5 min PRN pantoprazole (PROTONIX) 40 mg traZODone (DESYREL) 50 mg, Oral, Nightly PRN Wegovy 2.4 mg, Subcutaneous, Weekly ALLERGIES: Allergies Allergen Reactions Ticagrelor Shortness of breath Other Reaction(s): Difficulty Breathing Cefdinir Other Reaction(s): facial tingling/ rash Esomeprazole Hives homicidal Metoclopramide Rash Other Reaction(s): Head Spinning / Hallucinations / Rash Other Reaction(s): Hives, vomitting/rash Penicillins Rash Other Reaction(s): Tongue Swelling / Rash Tramadol Itching Other Reaction(s): itching PHYSICAL EXAM: Visit Vitals BP 104/62 Pulse 78 Ht 5' 2 Wt 203 lb SpO2 98% BMI 37.13 kg/m OB Status Postmenopausal Smoking Status Former BSA 2.01 m BP Readings from Last 3 Encounters: 07/21/25 104/62 06/01/25 102/70 01/18/25 100/80 Wt Readings from Last 3 Encounters: 07/21/25 203 lb 06/01/25 205 lb 04/01/25 208 lb Physical Exam HENT: Mouth/Throat: Mouth: Mucous membranes are moist. Neck: Thyroid: No thyroid mass or thyromegaly. Vascular: No carotid bruit. Cardiovascular: Rate and Rhythm: Normal rate and regular rhythm. Heart sounds: No murmur heard. No friction rub. No gallop. Pulmonary: Effort: Pulmonary effort is normal. Breath sounds: Normal breath sounds. Abdominal: General: Bowel sounds are normal. Palpations: Abdomen is soft. Tenderness: There is no abdominal tenderness. Musculoskeletal: Right lower leg: No edema. Left lower leg: No edema. Lymphadenopathy: Cervical: No cervical adenopathy. Skin: General: Skin is warm and dry. Neurological: Mental Status: She is alert and oriented to person, place, and time. Psychiatric: Thought Content: Thought content normal. Physical Exam Neck: No abnormalities noted. Respiratory: Clear to auscultation, no wheezing, rales or rhonchi. Cardiovascular: Regular rate and rhythm, no murmurs, rubs, or gallops. Results Labs - Total Cholesterol: 159 mg/dL - Triglycerides: 76 mg/dL - HDL: 59 mg/dL - LDL: 87 mg/dL - Fasting Sugar: 89 mg/dL - Fasting Sugar: 95 mg/dL - Thyroid Function: Normal - Kidney Function: Normal - Liver Function: Normal - Electrolytes: Normal - Anemia: No anemia or blood loss - Blood Clotting: Normal ASSESSMENT AND PLAN: Assessment & Plan 1. Essential hypertension (Primary) BP stable. Continue current regimen. - Comprehensive metabolic panel; Future - Comprehensive metabolic panel 2. Stage 3a chronic kidney disease ([facility]) Labs stable. Continue to monitor. - Comprehensive metabolic panel; Future - Vitamin D 25 hydroxy Total; Future - PTH, intact; Future - Phosphorus; Future - Comprehensive metabolic panel - Vitamin D 25 hydroxy Total - PTH, intact - Phosphorus 3. Coronary artery disease involving [place] coronary artery of [place] heart without angina pectoris Denies chest pain or exertional discomfort. Call if problems develop. - Semaglutide-Weight Management (Wegovy) 2.4 MG/0.75ML solution auto-injector; Inject 2.4 mg under the skin 1 (one) time per week Dispense: 3 mL; Refill: 5 4. Chronic systolic congestive heart failure (HCC) Denies weight gain, edema or SOB. Call if problems develop or weight is increasing. 5. Pure hypercholesterolemia Hyperlipidemia: Stable. - Total cholesterol 159, triglycerides 76, HDL 59, LDL 87. - Continue atorvastatin 40 mg due to leg cramps. 6. Moderate major depression (HCC) Doing well. Continue current regimen. 7. Acquired hypothyroidism Doing well. Continue current regimen. - TSH; Future - TSH 8. Age-related osteoporosis without current pathological fracture I cannot find record of DEXA, will try to obtain. 9. Gastroesophageal reflux disease without esophagitis Doing well. Continue current regimen. 10. Lumbar radiculopathy Back pain: Chronic. - Discussed that gabapentin, sleep meds, pain meds can all cause some memory impairment but this data is still being reviewed. - Gradual reduction of gabapentin intake over a period of 7 to 10 days, starting with one tablet inthe morning and one at night, then reducing to one tablet at night only for 7-10 days. - Continue using acetaminophen or Tylenol for back pain. - Consider alternative treatments if pain becomes severe after discontinuing gabapentin. 11. Primary insomnia Sleep disturbances. - Prescription for trazodone to be taken as needed every night. - Inform if trazodone does not work. - traZODone (Desyrel) 50 MG tablet; Take 1 tablet (50 mg) by mouth as needed at bedtime for sleep Dispense: 30 tablet; Refill: 3 - Ambulatory referral to Sleep Medicine; Future 12. Snoring Sleep study. - Referral for sleep study at [place]. - Ambulatory referral to Sleep Medicine; Future 13. Colon cancer screening This is overdue. - Ambulatory referral to Gastroenterology; Future 14. Severe obesity (BMI 35.0-35.9 with comorbidity) ([facility]) Weight management. - Prescription for semaglutide sent to pharmacy, requires prior authorization from insurance. - Semaglutide-Weight Management (Wegovy) 2.4 MG/0.75ML solution auto-injector; Inject 2.4 mg under the skin 1 (one) time per week Dispense: 3 mL; Refill: 5 15. BMI 37.0-37.9, adult As above. - Semaglutide-Weight Management (Wegovy) 2.4 MG/0.75ML solution auto-injector; Inject 2.4 mg under the skin 1 (one) time per week Dispense: 3 mL; Refill: 5 Health maintenance. - Thyroid function normal, recheck during next visit. - Referral for colonoscopy provided today. Follow-up - Order for lab work in 6 months. - Referral for colonoscopy. - Referral for sleep study at [place]. Dr. Newell was present in the office at the time of visit today and is supervising patient care. I amfollowing Dr. Newell's established plan of care for the above issues. documented in this encounterCameron Regional Medical [id number] Evaluation note* Diagnosis Essential hypertension- Primary Unspecified essential hypertension Stage 3a chronic kidney disease ([facility]) Coronary artery disease involving [place] coronary artery of [place] heart without angina pectoris Chronic systolic congestive heart failure (HCC) Pure hypercholesterolemia Pure hypercholesterolemia Moderate major depression (HCC) Major depressive disorder, single episode, moderate Acquired hypothyroidism Unspecified hypothyroidism Age-related osteoporosis without current pathological fracture Gastroesophageal reflux disease without esophagitis Esophageal reflux Lumbar radiculopathy Thoracic or lumbosacral neuritis or radiculitis, unspecified Primary insomnia Persistent disorder of initiating or maintaining sleep Snoring Other dyspnea and respiratory abnormality Colon cancer screening Special screening for malignant neoplasms, colon Severe obesity (BMI 35.0-35.9 with comorbidity) ([facility]) BMI 37.0-37.9, adult documented in this encounter [facility] [id number] History of Present illness Narrative* MANUEL Roldan - 07/12/2025 10:45 AM EDT Images from the original note were not included. Orthopedic Office note: NAME: Adela Hopkins : 1960 (EST PT) - S/P (L) SHOULDER SCOPE @[facility] 04/30/25 (10 WKS, 3 DAYS) PT @[facility] CONTINUES HEP / PT - ROM / STRENGTH IMPROVING. INTERMITTENT POSTERIOR DISCOMFORT / SORENESS - RADIATION INTO NECK. SOME SWELLING - RESOLVED WITH ICING. SOME BICEP DISCOMFORT INTERMITTENTLY. STIFFNESSIN NECK. SOME TINGLING TO (L) HAND, DENIES NUMBNESS. DIFFICULTY WITH GETTING COMFORTABLE HS - WAKING HS. HYDROCODONE PRN. TYL PRN. ICING. TENS UNIT. ADMITS ULNAR DISCOMFORT OF FOREARM INTO (L) LF. ADMITS STIFFNESS TO (L) HAND - CONTINUES HEP TO HAND. SOME NUMBNESS TO LF. Left Shoulder Exam Tenderness The patient is experiencing no tenderness (compartments soft). Range of Motion Active abduction: 130 Passive abduction: 160 (pain on end rom.) Extension: 60 External rotation: 80 Forward flexion: 150 (PROM 165- pain on end rom) Muscle Strength Left shoulder normal muscle strength: Fires deltoid and rotator cuff. Other Erythema: absent Scars: absent (portals well healed) Sensation: normal Pulse: present Comments: The operative upper extremity was noted to be neurovascularly unchanged. Sensation to light touch was intact to all dermatomes to operative upper extremity. Radial and ulnar pulses were present and equal bilaterally. Patient was able to motor elbow wrist and fingers in all anatomic planeswith 5 out of 5 strength on the operative upper extremity. Compartments were soft to operative upper extremity. There was no evidence of infection or ascending lymphangitis to operative extremity. No orders of the defined types were placed in this encounter. Procedures Results ICD-10-CM 1. S/P arthroscopy of left shoulder Z98.890 S/p repair of rotator cuff, Biceps tenodesis and SAD Assessment & Plan Post-operative status following left shoulder arthroscopy, rotator cuff repair, and biceps tenodesis Pleased with progress, noting increased active and passive range of motion compared to previous appointments. Still experiences some positional discomfort during sleep. Treatment plan: Activity modifications discussed, including elevating the head of the bed during sleep. Gentle strength training will be initiated in the coming week, despite the typical 12-week post-surgery wait, due to good progress. 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 Follow-up: Expressed gratitude and had no additional concerns or questions. PROCEDURE Procedure Performed Left shoulder arthroscopy, rotator cuff repair, and biceps tenodesis. Questions answered in laymen terms at the bedside. The diagnosis, home exercise plan and any ongoing restrictions/ recommendations reviewed. If unable to be reached in office, I recommend evaluation at nearest Emergency Room if any symptoms worsened or new symptoms develop for requiring urgent evaluation. Visit was preformed using 3225 films Co-pilot instructor speech recognition. documented in this encounterCameron Regional Medical [id number] History of Present illness Narrative* MANUEL Roldan - 06/11/2025 10:30 AM EDT Images from the original note were not included. Orthopedic Office note: NAME: Adela Hopkins : 1960 EST PT S/P LT SHOULDER SCOPE 04/30/25 (6WKS) - DOING WELL- PT IS CURRENTLY DOING HOME THERAPY WITH [facility]- NOTES SOME INTERMITTENT DISCOMFORT- GENERALLY IN THE MORNING- NOTES SOME WRIST AND ELBOW PAIN FROM SLING- +TYLENOL- PT STATES HER THERAPIST NEEDS TO KNOW WHAT THE NEXT STAGE IS FOR THERAPY Left Shoulder Exam Tenderness The patient is experiencing no tenderness (compartments soft). Range of Motion Active abduction: 70 Passive abduction: 90 Extension: 50 External rotation: 60 Forward flexion: 70 (PROM to 90) Muscle Strength Left shoulder normal muscle strength: Fires deltoid and rotator cuff. Other Erythema: absent Scars: absent (portals well healed) Sensation: normal Pulse: present Comments: The operative upper extremity was noted to be neurovascularly unchanged. Sensation to light touch was intact to all dermatomes to operative upper extremity. Radial and ulnar pulses were present and equal bilaterally. Patient was able to motor elbow wrist and fingers in all anatomic planeswith 5 out of 5 strength on the operative upper extremity. Compartments were soft to operative upper extremity. There was no evidence of infection or ascending lymphangitis to operative extremity. Orders Placed This Encounter Procedures Ambulatory referral to Physical Therapy Standing Status: Future Expected Date: 06/11/2025 Expiration Date: 12/12/2025 Referral Priority: Routine Referral Type: Consultation Referral Reason: Specialty Services Required Referral Location: [place] [facility] Scheduling Requested Specialty: Physical Therapy Number of Visits Requested: 1 Procedures Results ICD-10-CM 1. S/P arthroscopy of left shoulder Z98.890 Ambulatory referral to Physical Therapy S/p repair of rotator cuff, Biceps tenodesis and SAD Assessment & Plan Post-operative status following left shoulder arthroscopy and rotator cuff repair. She has been engaging in home-based therapy to improve passive range of motion. The sling has been discontinued, and she is now capable of driving with caution. She expressed a desire to participate in outpatient therapy, which will be arranged at [place]. The focus will be on enhancing both active and passive range of motion. The importance of achieving more than 90 degrees of forward flexion and abduction was discussed to mitigate the risk of developing a frozen shoulder. Currently, her painis restricting this movement. She acknowledges the significance of supplementing outpatient therapywith home exercises. Her daughter, who was present during the consultation, will assist in scheduling an appointment for outpatient therapy in the upcoming week. She has been advised against lifting anything heavier than a coffee cup with her left arm. Treatment plan: Outpatient therapy at [place] to enhance active and passive range of motion, supplemented with home exercises. Follow-up: Appointment for outpatient therapy to be scheduled in the upcoming week. PROCEDURE Procedure Performed Left shoulder arthroscopy and rotator cuff repair Questions answered in laymen terms at the bedside. The diagnosis, home exercise plan and any ongoing restrictions/ recommendations reviewed. If unable to be reached in office, I recommend evaluation at nearest Emergency Room if any symptoms worsened or new symptoms develop for requiring urgent evaluation. Visit was preformed using 3225 films Co-pilot instructor speech recognition. documented in this encounterCameron Regional Medical [id number] History of Present illness Narrative* MANUEL Burgess - 06/01/2025 11:00 AM EDT Adela Hopkins is a 65 y.o. female presents with chief complaint of Leg Pain HPI: History of Present Illness The patient presents for evaluation of left hip pain and medication management. She reports experiencing pain in her left hip, which extends across her buttock and down her leg toher foot. The severity of the pain varies, with instances of extreme discomfort. She recalls an incident at a store where she struggled to walk due to the pain, even needing to rest her foot on the grocery cart for relief. However, this did not alleviate the pain. This issue has been ongoing for approximately 2 weeks, with no known injury or trauma. She is left-handed and occasionally experiencesa sensation of instability in her leg when bearing weight. She also reports severe knee pain. She has no history of back surgery but has undergone 3 neck surgeries. She denies any bowel or bladder inc ontinence. She is currently on Wegovy 2.4 mg and is seeking a refill. She has been tolerating the medication well, having lost weight from 221 pounds to 209 pounds since starting the treatment in 11/2024. She also requires a refill of her nitroglycerin prescription. She had rotator cuff repair and bicep repair surgery 5 weeks ago. She had an ultrasound done on hergallbladder last week but has not received any feedback regarding the results. PAST SURGICAL HISTORY: Rotator cuff repair and bicep repair surgery 5 weeks ago. Three neck surgeries. I have reviewed and reconciled the history and medication list with the patient today. HISTORIES: PAST MEDICAL HISTORY: Past Medical History: Diagnosis Date Age-related osteoporosis without current pathological fracture 06/19/2023 Anemia 06/19/2023 Asthmatic bronchitis (HCC) 06/19/2023 CAD (coronary artery disease) Chronic pansinusitis 06/19/2023 Congestive heart failure (HCC) 06/19/2023 Essential hypertension Gastroesophageal reflux disease 06/19/2023 History of hysterectomy 11/29/2021 Hyperlipemia Hypothyroidism Ischemic cardiomyopathy 06/19/2023 Microscopic hematuria 06/10/2023 Moderate major depression (HCC) 06/19/2023 Neuropathy Legs/feet Nonrheumatic mitral valve regurgitation 12/26/2023 Radiculopathy, lumbosacral region Stage 3a chronic kidney disease ([facility]) 06/19/2023 SURGICAL HISTORY: Past Surgical History: Procedure Laterality Date APPENDECTOMY CERVICAL FUSION SECTION, LOW TRANSVERSE CHOLECYSTECTOMY CORONARY ANGIOPLASTY WITH STENT PLACEMENT 2020 HYSTERECTOMY KNEE SURGERY Right knee scope SHOULDER SURGERY Left 2010 SHOULDER SURGERY Left 04/30/2025 LT shoulder scope - Dr Hunt SOCIAL HISTORY: Social History Tobacco Use Smoking status: Former Current packs/day: 0.00 Types: Cigarettes Start date: 12/02/1971 Quit date: 12/02/1999 Years since quittin.5 Smokeless tobacco: Never Vaping Use Vaping status: Never Used Substance Use Topics Alcohol use: Yes Comment: Twice a year. Caffeine: Coffee, 4-5 daily. Pop, 3 cans weekly Drug use: Never Depression: Not at risk (12/26/2023) PHQ-2 PHQ-2 Score: 0 FAMILY HISTORY: Family History Problem Relation Name Age of Onset Thyroid disease Mother Cancer Mother Heart disease Father Stroke Father Brain cancer Father Other (MRSA) Brother Breast cancer Mother's Sister 69 No Known Problems Maternal Grandmother Hypertension Other sibling Diabetes Other sibling MEDICATIONS: Current Outpatient Medications Medication Instructions amitriptyline (ELAVIL) 25 mg, Nightly PRN atorvastatin (LIPITOR) 80 mg, Oral, Daily benzonatate (Tessalon) 100 MG capsule TAKE 1 CAPSULE BY MOUTH THREE TIMES A DAY NEEDED FOR COUGH(DO NOT CRUSH OR CHEW) carvedilol (COREG) 3.125 mg, Every 12 hours citalopram (CELEXA) 40 mg, Oral, Daily clopidogrel (PLAVIX) 75 mg, Oral, Daily diclofenac sodium 3 % gel Entresto 24-26 MG tablet 1 tablet, Oral, 2 times daily gabapentin (Neurontin) 300 MG capsule TAKE 2 CAPSULES BY MOUTH EVERY MORNING AND TAKE TWO CAPSULES BY MOUTH EVERY NIGHT AT BEDTIME levalbuterol (Xopenex HFA) 45 MCG/ACT inhaler 2 puffs, Inhalation, Every 6 hours PRN levothyroxine (SYNTHROID, LEVOXYL) 100 mcg, Oral, Daily meclizine (ANTIVERT) 25 mg, 3 times daily PRN nitroglycerin (NITROSTAT) 0.4 mg, Every 5 min PRN Wegovy 2.4 mg, Subcutaneous, Weekly ALLERGIES: Allergies Allergen Reactions Ticagrelor Shortness of breath Other Reaction(s): Difficulty Breathing Cefdinir Other Reaction(s): facial tingling/ rash Esomeprazole Hives homicidal Metoclopramide Rash Other Reaction(s): Head Spinning / Hallucinations / Rash Other Reaction(s): Hives, vomitting/rash Penicillins Rash Other Reaction(s): Tongue Swelling / Rash Tramadol Itching Other Reaction(s): itching PHYSICAL EXAM: Visit Vitals OB Status Postmenopausal Smoking Status Former BP Readings from Last 3 Encounters: 01/18/25 100/80 12/29/24 126/78 12/03/24 126/70 Wt Readings from Last 3 Encounters: 04/01/25 208 lb 01/18/25 210 lb 12/29/24 216 lb Physical Exam General Examination: alert, oriented, normal affect, well appearing, in no acute distress, well developed, well nourished Head: normocephalic, atraumatic Neck/Thyroid: no carotid bruit, no palpable thyromegaly Skin: normal low back Heart: regular rate and rhythm, S1, S2 normal Lungs: clear to auscultation bilaterally Back: limited AROM lumbar spine with tenderness and spasm noted left lumbar L3- S1 and ttp over SI joint Musculoskeletal: full AROM left hip and knee and strength 5/5. SLR negative b/l Extremities: no edema, no cyanosis Peripheral Pulses: cap refill < 2 seconds LLE Neurologic: patellar DTR's symmetrical, sensory exam intact LLE Psych: alert, oriented, cooperative with exam, cognitive function intact Results ASSESSMENT AND PLAN: Assessment & Plan 1. Acute left sided low back pain - Symptoms suggest pain is likely originating from the back rather than the hip, possibly due to inflammation exerting pressure on a nerve extending down the leg. Sounds consistent with lumbar radiculopathy. - Muscle appears spasmed and tight on the left side. - Prescription for anti-inflammatory steroid pills will be provided to alleviate the inflammation. If the steroids do not completely resolve the issue, physical therapy and x-rays will be arranged. - If there is no improvement after 2 weeks of steroid treatment, further investigation into potential back issues will be necessary, including imaging, x-rays, and physical therapy. 2. Medication management. - Wegovy 2.4 mg refill will be sent to pharmacy. - Nitroglycerin refill will be sent to pharmacy. - Wegovy has been well tolerated, with weight reduction from 221 lbs to 209 lbs over 7 months. 3. Follow-up. - Patient will follow up in 2 weeks with calling us to assess the effectiveness of the steroid treatment and determine the need for further intervention. documented in this encounterCameron Regional Medical [id number] Telephone encounter Note* Telephone Encounter - MANUEL Roldan - 05/19/2025 4:12 PM EDT Home PT order placed- Nakul, are you able to see her ( lives in [place]) She is s/p left shoulder scope: PROM only, may start AROM at 6 wks post op. no strengthening or resistance. S/p SAD, Rotator cuff repair and Biceps tenodesis [facility] [id number] Miscellaneous Notes* Telephone Encounter - MANUEL Roldan - 05/19/2025 4:12 PM EDT Home PT order placed- Nakul, are you able to see her ( lives in [place]) She is s/p left shoulder scope: PROM only, may start AROM at 6 wks post op. no strengthening or resistance. S/p SAD, Rotator cuff repair and Biceps tenodesis * Telephone Encounter - Lilo Hawthorne - 05/19/2025 2:12 PM EDT Noting Abby's message; I was just going to note to Glen I've LM 3x's requesting call back. I have received no attempt. * Telephone Encounter - Abby Ballesteros - 05/19/2025 1:05 PM EDT Patient called and left vm. She stated she does not want to do rafy for PT. She does need to do the PT at her home. Please advise. * Telephone Encounter - Lilo Hawthorne - 05/19/2025 12:51 PM EDT Attempted to contact but no answer; LM. * Telephone Encounter - Lilo Hawthorne - 05/18/2025 9:37 AM EDT Just tried to contact to offer scheduling; but had to lm. I informed of time availability and requested a call back josephine. * Telephone Encounter - Lilo Hawthorne - 05/18/2025 8:08 AM EDT Glen, Once I received the referral I had contacted but had to lm; I did note we had a later PT open yesterday. I received no call back. We have 7-5:30 M-Th; 7-3:30 F. I can try again today to contact. * Telephone Encounter - MANUEL Roldan - 05/17/2025 9:08 PM EDT Lilo, Do you not have hours that work with her husbands schedule? * Telephone Encounter - Abby Ballesteros - 05/17/2025 2:19 PM EDT Patient called in stating she does not have a way to get to PT since her 's work schedule changed. She is asking if she can do home health PT. Please let her know [phone] * Telephone Encounter - Lilo Hawthorne - 05/17/2025 11:42 AM EDT Tried to contact to schedule PT Eval for PO L shoulder scope; dos 04/30. LM requesting a call back josephine; 6:00 pm available today for Eval. documented in this encounterCameron Regional Medical [id number] Telephone encounter Note* Telephone Encounter - Lilo Hawthorne - 05/19/2025 2:12 PM EDT Noting Abby's message; I was just going to note to Glen I've LM 3x's requesting call back. I have received no attempt. [facility] [id number] Telephone encounter Note* Telephone Encounter - Abby Ballesteros - 05/19/2025 1:05 PM EDT Patient called and left vm. She stated she does not want to do rafy for PT. She does need to do the PT at her home. Please advise. [facility] [id number] Telephone encounter Note* Telephone Encounter - Lilo Hawthorne - 05/19/2025 12:51 PM EDT Attempted to contact but no answer; LM. [facility] [id number] Telephone encounter Note* Telephone Encounter - Lilo Hawthorne - 05/18/2025 9:37 AM EDT Just tried to contact to offer scheduling; but had to lm. I informed of time availability and requested a call back josephine. [facility] [id number] Telephone encounter Note* Telephone Encounter - Lilo Hawthorne - 05/18/2025 8:08 AM EDT Glen, Once I received the referral I had contacted but had to lm; I did note we had a later PT open yesterday. I received no call back. We have 7-5:30 M-Th; 7-3:30 F. I can try again today to contact. [facility] [id number] Telephone encounter Note* Telephone Encounter - MANUEL Roldan - 05/17/2025 9:08 PM EDT Lilo, Do you not have hours that work with her husbands schedule? [facility] [id number] Telephone encounter Note* Telephone Encounter - Abby Ballesteros - 05/17/2025 2:19 PM EDT Patient called in stating she does not have a way to get to PT since her 's work schedule changed. She is asking if she can do home health PT. Please let her know [phone] [place] [id number] Telephone encounter Note* Telephone Encounter - Lilo [place]orne - 05/17/2025 11:42 AM EDT Tried to contact to schedule PT Eval for PO L shoulder scope; dos 04/30. LM requesting a call back josephine; 6:00 pm available today for Eval. [place] [id number] History of Present illness Narrative* MANUEL Roldan - 05/14/2025 10:30 AM EDT Images from the original note were not included. Orthopedic Office note: NAME: Adela Hopkins : 1960 1ST PO S/P LT SHOULDER SCOPE 04/30/25 (2 WKS) @ [facility]. NOTES SOME PAIN- +PERCOCET PRN; WOULD LIKE A REFILL- DISCOMFORT ANTERIOR AND POSTERIOR SHOULDER- WEARING ULTRA SLING- SUTURES REMOVED WITHOUT DIFFICULTY Left Shoulder Exam Left shoulder exam is normal. Tenderness The patient is experiencing no tenderness (compartments soft). Range of Motion Left shoulder passive abduction: gentle pendulums easily. Muscle Strength Left shoulder normal muscle strength: gentle pendulums easily, fires rotator cuff and deltoid. Other Erythema: absent Scars: present (Portals well healing, sutures removed, no erythema, drainge or discharge, no dehisence) Sensation: normal Pulse: present Comments: The operative upper extremity was noted to be neurovascularly unchanged. Sensation to light touch was intact to all dermatomes to operative upper extremity. Radial and ulnar pulses were present and equal bilaterally. Patient was able to motor elbow wrist and fingers in all anatomic planeswith 5 out of 5 strength on the operative upper extremity. Compartments were soft to operative upper extremity. There was no evidence of infection or ascending lymphangitis to operative extremity. No orders of the defined types were placed in this encounter. Procedures Results No diagnosis found. S/p repair of rotator cuff, Biceps tenodesis and SAD Assessment & Plan Post-operative status following left shoulder arthroscopy, rotator cuff repair, biceps tenodesis, and subacromial decompression. She is demonstrating satisfactory progress, with pain levels being well-managed. She has expressed a desire for a refill of her analgesic medication, specifically Sealy, to facilitate her therapy sessions. The treatment plan discussed involves passive range of motion exercises only, with no active range of motion, strengthening, or resistance exercises at this stage. Bedside exercises were demonstrated, which initially resulted in increased soreness but subsequently led to symptom improvement upon repetitive stretching. Her sling was adjusted to ensure it is neurovascularly intact and properly aligned. She expressed gratitude and had no additional concerns or queries. Treatment plan: Passive range of motion exercises only, refill of Sealy for pain management, bedside exercises demonstrated. Follow-up: The patient will follow up in 4 weeks. PROCEDURE Procedure Performed Left shoulder arthroscopy, rotator cuff repair, biceps tenodesis, and subacromial decompression. Questions answered in laymen terms at the bedside. The diagnosis, home exercise plan and any ongoing restrictions/ recommendations reviewed. If unable to be reached in office, I recommend evaluation at nearest Emergency Room if any symptoms worsened or new symptoms develop for requiring urgent evaluation. Visit was preformed using [employer]-pilot instructor speech recognition. documented in this [facility]06-13-2025 Instructions* Patient Instructions* MANUEL Roldan - 05/14/2025 10:30 AM EDT Discussed patient being 2 wks s/p Rotator cuff surgery: surgery discussed at bedside. Continue in sling until follow up to protect repair. ( 6 wks post op) May remove sling to shower and change clothing. Also remove sling 2- 3 times a day to continue home exercises for hand, wrist and elbow range of motion. No weight in operative arm. No lifting anything heavier than coffee cup. Referral for Therapy given/sent electronically, please call Therapy facility to schedule as soon aspossible documented in this [facility]06-02-2025 Note [id number]#1.00[facility]06-02-2025 [id number]#1.00[facility] 04-30-2025 [facility] SURGERY Clinical Discharge Summary PERSON INFORMATION Name ADELA HOPKINS Age 64 Years 1960 Sex FEMALE Language Trinidadian PCP Robert Newell Marital Status Med Service Ambulatory Surgery Acct# Arrival 04/30/2025 10:21:22 Visit Reason SURGERY - LEFT SHOULDER ARHTROSCOPY WITH ROTATOR CUFF REPAIR Acuity LOS 057 07:44 Address: [address] [place] [address] Comment: PROVIDER INFORMATION VITALS INFORMATION Vital Sign [...] 1 tab(s) Oral (given by mouth) 2 time (more content not included)...[facility] [id number] Telephone encounter Note* Telephone Encounter - Ger Jay NP - 04/29/2025 8:13 AM EDT Post op pain rx. PDMP reviewed [facility] [id number] Miscellaneous Notes* Telephone Encounter - Ger Jay NP - 04/29/2025 8:13 AM EDT Post op pain rx. PDMP reviewed documented in this encounterCameron [facility] Medical [id number] NoteDrSlade Villalobos reviews PAT information and testing results. Ok to proceed with procedure. No orders given. [Electronically Signed on: 04/09/2025 12:46 EDT] Nakul Hanson RN [Verified on: 04/09/2025 12:46 EDT] Nakul Hanson RNUniversity Hospitals Parma Medical [id number] History of Present illness Narrative* MANUEL Roldan - 04/01/2025 10:30 AM EDT Images from the original note were not included. GENERAL HISTORY AND PHYSICAL: NAME: Adela Hopkins : 1960 HISTORY OF PRESENT ILLNESS: Adela Hopkins is an 64 y.o. @ female. Here for surgery instructions left shoulder scope April 30 @ [facility]. PAST MEDICAL HISTORY: Past Medical History: Diagnosis Date Age-related osteoporosis without current pathological fracture ([facility]) 06/19/2023 Anemia 06/19/2023 Asthmatic bronchitis (CMS/HCC) 06/19/2023 CAD (coronary artery disease) (CMS/[facility]) Chronic pansinusitis 06/19/2023 Congestive heart failure (CMS/HCC) 06/19/2023 Essential hypertension (CMS/HCC) Gastroesophageal reflux disease 06/19/2023 History of hysterectomy 11/29/2021 Hyperlipemia (CMS/HCC) Hypothyroidism (CMS/HCC) Ischemic cardiomyopathy (CMS/HCC) 06/19/2023 Microscopic hematuria 06/10/2023 Moderate major depression (CMS/HCC) 06/19/2023 Neuropathy Legs/feet Nonrheumatic mitral valve regurgitation 12/26/2023 Radiculopathy, lumbosacral region Stage 3a chronic kidney disease (HCC) (CMS/HCC) 06/19/2023 PAST SURGICAL HISTORY: Past Surgical History: Procedure Laterality Date APPENDECTOMY CERVICAL FUSION SECTION, LOW TRANSVERSE CHOLECYSTECTOMY CORONARY ANGIOPLASTY WITH STENT PLACEMENT 2020 HYSTERECTOMY KNEE SURGERY Right knee scope SHOULDER SURGERY Left 2010 SOCIAL HISTORY: Social History Occupational History 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 Caffeine: Coffee, 4-5 daily. Pop, 3 cans weekly Drug use: Never Sexual activity: Defer ALLERGIES: Allergies Allergen Reactions Ticagrelor Shortness of breath Other Reaction(s): Difficulty Breathing Cefdinir Other Reaction(s): facial tingling/ rash Esomeprazole Hives homicidal Metoclopramide Rash Other Reaction(s): Head Spinning / Hallucinations / Rash Other Reaction(s): Hives, vomitting/rash Penicillins Rash Other Reaction(s): Tongue Swelling / Rash Tramadol Itching Other Reaction(s): itching MEDICATIONS: Current Outpatient Medications Medication Instructions amitriptyline (ELAVIL) 25 mg, Nightly PRN atorvastatin (LIPITOR) 80 mg, Oral, Daily carvedilol (COREG) 3.125 mg, Every 12 hours citalopram (CELEXA) 40 mg, Oral, Daily clopidogrel (PLAVIX) 75 mg, Oral, Daily diclofenac sodium 3 % gel Entresto 24-26 MG tablet 1 tablet, Oral, 2 times daily gabapentin (Neurontin) 300 MG capsule TAKE 2 CAPSULES BY MOUTH EVERY MORNING AND TAKE TWO CAPSULES BY MOUTH EVERY NIGHT AT BEDTIME levalbuterol (Xopenex HFA) 45 MCG/ACT inhaler 2 puffs, Inhalation, Every 6 hours PRN levothyroxine (SYNTHROID, LEVOXYL) 100 mcg, Oral, Daily meclizine (ANTIVERT) 25 mg, 3 times daily PRN nitroglycerin (NITROSTAT) 0.4 mg, Every 5 min PRN Wegovy 1.7 mg, Subcutaneous, Weekly REVIEW OF SYSTEMS: Review of Systems Constitutional: Negative for fatigue, fever and unexpected weight change. Eyes: Negative for redness and visual disturbance. Gastrointestinal: Negative for abdominal pain. Denies Indigestion Musculoskeletal: See note: Skin: Negative for color change and rash. Neurological: Negative for light-headedness and numbness. Vitals: Body mass index is 38.04 kg/m . PHYSICAL EXAM: Physical Exam Constitutional: General: She is not in acute distress. Appearance: Normal appearance. HENT: Head: Normocephalic and atraumatic. Right Ear: External ear normal. Left Ear: External ear normal. Nose: Nose normal. No rhinorrhea. Mouth/Throat: Mouth: Mucous membranes are moist. Pharynx: No posterior oropharyngeal erythema. Eyes: Extraocular Movements: Extraocular movements intact. Conjunctiva/sclera: Conjunctivae normal. Cardiovascular: Rate and Rhythm: Normal rate and regular rhythm. Pulses: Normal pulses. Heart sounds: No murmur heard. Pulmonary: Effort: Pulmonary effort is normal. No respiratory distress. Breath sounds: Normal breath sounds. No wheezing or rhonchi. Abdominal: Palpations: Abdomen is soft. Tenderness: There is no abdominal tenderness. Musculoskeletal: Cervical back: Normal range of motion and neck supple. Lymphadenopathy: Cervical: No cervical adenopathy. Skin: General: Skin is warm and dry. Findings: No erythema or rash. Neurological: General: No focal deficit present. Mental Status: She is alert and oriented to person, place, and time. Psychiatric: Mood and Affect: Mood normal. Behavior: Behavior normal. No orders of the defined types were placed in this encounter. ASSESSMENT: ICD-10-CM 1. Pre-op examination Z01.818 PLAN:This patient presents for preadmission testing for upcoming surgery. Complete history with medical, surgery, and current allergy and medication list obtained. Consent for surgery signed and witnessed after verbal consent to perform surgery received. All questions answered and proposed surgery scheduled. SURGERY INSTRUCTIONS April @ [facility] INJECTION April ARTHREX NOTIFIED PLAVIX PROTOCOL GIVEN CARDIAC CLEARANCE RECEIVED LEONARDA PRE OP TESTING April @ 2:00 Follow up in about 6 weeks (around 05/14/2025) for Post-Op May 14 with [facility] in [place]. documented in this encounterCameron [facility] [id number] [place] [address] Pain Management Procedure Note Signed Patient: Adela Hopkins V MR#: [id number] : 1960 Acct:[id number] Age/Sex: 64 / F Adm Date: 5 Loc: Room: [facility] Attending Dr: Jordan Salazar MD Copies to: MD Jordan Farrar MD~ Pain Procedure PROCEDURE PERFORMED BY: Jordan Salazar PROCEDURE DATE: 02/03/2025 PREPROCEDURE DIAGNOSIS: 1. Lumbar Radiculopathy 2. Lumbar Degenerative Disc Disease 3. Chronic pain POSTPROCEDURE DIAGNOSIS: 1. Lumbar Radiculopathy 2. Lumbar Degenerative Disc Disease 3. Chronic Pain PROCEDURE: Interlaminar epidural steroid injection at the L4-L5 level under fluoroscopic guidance. COMPLICATIONS: None ANESTHESIA: Local and conscious sedation with Midazolam 2 mg CLINICAL NOTE: The patient has a history of low back pain.? The patient requests the epidural in an attempt to improve the pain.? The risks, benefits, and alternatives of theprocedure were explained to the patient.? The patient wishes to proceed. PROCEDURE NOTE: The patient was brought to the procedure room and placed in the prone position. The skin was prepped and draped with ChloraPrep and sterile drape.? 3 mL of 1% lidocaine were injected through a 27-gauge needle for local anesthesia.? An 18- gauge Tuohy needle was guided to L4-L5 interlaminar space under fluoroscopic guidance by the loss of resistance technique.? Contrast was injected under live fluoroscopy to ensure proper needle placement. After negative aspiration, 60 mg of methylprednisolone and 5 mL of half percent lidocaine were injected through the needle.? The needle was removed and band-aid was applied. The patient tolerated the procedure well and was transferred to recovery in stable c ondition. PLAN: The patient was instructed to call the clinic in 1 week to inform us of any progress.? The patient was encouraged to call at any time with any questions or concerns. Documented By: Jordan Salazar MD 02/03/25 0937 Signed By: 02/03/25 1205 [facility]02-22-2025 Evaluation note* Diagnosis Essential hypertension (CMS/HCC)- Primary Unspecified essential hypertension Stage 3a chronic kidney disease (HCC) (CMS/HCC) Coronary artery disease involving [place] coronary artery of [place] heart without angina pectoris (CMS/HCC) Chronic systolic congestive heart failure (CMS/HCC) Pure hypercholesterolemia (CMS/HCC) Pure hypercholesterolemia Acquired hypothyroidism (CMS/HCC) Unspecified hypothyroidism Moderate major depression (CMS/HCC) Major depressive disorder, single episode, moderate Age-related osteoporosis without current pathological fracture (CMS/HCC) Severe obesity (BMI 35.0-39.9) with comorbidity (CMS/HCC) BMI 38.0-38.9,adult Dysuria Mild persistent asthmatic bronchitis without complication (CMS/HCC) Chronic left shoulder pain Pain in joint, shoulder region Neck pain Cervicalgia Peripheral polyneuropathy documented in this encounter [facility] [id number] History of Present illness Narrative* Jr. Bernabe Hunt, DO - 01/20/2025 10:00 AM EST Images from the original note were not included. NAME: Adela Hopkins : 1960 HISTORY OF PRESENT ILLNESS: NEW PT Adela Hopkins is an 64 y.o. @ female. (NEW PT) (DR. ROBERT NEWELL REFERRAL) - (L) SHOULDER DISCOMFORT - NOTES CHRONIC PAIN FOR YEARS WORSENING IN THE LAST YEAR HEART ATTACK IN 2019 XRAY TODAY, 01/20/25 IN EPIC XRAY 11/27/20 MRI 12/22/20 EXA PREDNISONE 11/2024 (FOR BRONCHITIS) CORTISONE INJ 12/08/20 NO PT PAIN MGMT - DR. SALAZAR (LBP / NECK PAIN) NOTES CONSTANT STABBING POSTERIOR AND SUPERIOR PAIN. RADIATING TO HAND AND INTO ARMPIT. N/T IN HAND. LIMITED ROM - PAINFUL. INTERMITTENT ANTERIOR SWELLING WITH USE. DENIES BRUISING. NOTES FINGERS GETCOLD. UNABLE TO SLEEP D/T PAIN. DENIES WAKING HS. DENIES ICING / HEATING / ELEVATING. DICLOFENAC GEL - SOME RELIEF. TYL 1000MG TID. HX HEART ATTACK - CURRENTLY TAKING PLAVIX (75 MCG) UNABLE TO TAKE IBUPROFEN S/P (L) SHOULDER ROTATOR CUFF TEAR REPAIR ~10 YRS AGO (DR. GILMORE) PAST MEDICAL HISTORY: Past Medical History: Diagnosis Date CAD (coronary artery disease) (CMS/HCC) Disturbance of skin sensation Essential hypertension (CMS/HCC) History of hysterectomy 11/29/2021 Hyperlipemia (CMS/HCC) Hypothyroidism (CMS/HCC) Pain in limb Radiculopathy, lumbosacral region PAST SURGICAL HISTORY: Past Surgical History: Procedure Laterality Date APPENDECTOMY CERVICAL FUSION SECTION, LOW TRANSVERSE CHOLECYSTECTOMY CORONARY ANGIOPLASTY WITH STENT PLACEMENT 2020 HYSTERECTOMY KNEE SURGERY Right knee scope SHOULDER SURGERY Left 2010 SOCIAL HISTORY: Social History Occupational History Occupation: Disability. 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 Caffeine: Coffee, 4-5 daily. Pop, 3 cans weekly Drug use: Never Sexual activity: Defer ALLERGIES: Allergies Allergen Reactions Ticagrelor Shortness of breath Other Reaction(s): Difficulty Breathing Cefdinir Other Reaction(s): facial tingling/ rash Esomeprazole Hives homicidal Metoclopramide Rash Other Reaction(s): Head Spinning / Hallucinations / Rash Other Reaction(s): Hives, vomitting/rash Penicillins Rash Other Reaction(s): Tongue Swelling / Rash Tramadol Itching Other Reaction(s): itching HOME MEDICATIONS: Current Outpatient Medications Medication Instructions amitriptyline (ELAVIL) 25 mg, Nightly PRN atorvastatin (LIPITOR) 80 mg, Oral, Daily carvedilol (COREG) 3.125 mg, Every 12 hours citalopram (CELEXA) 40 mg, Oral, Daily clopidogrel (PLAVIX) 75 mg, Oral, Daily diclofenac sodium 3 % gel apply 2 grams Externally Four times a day prn Entresto 24-26 MG tablet 1 tablet, Oral, 2 times daily gabapentin (Neurontin) 300 MG capsule TAKE 2 CAPSULES BY MOUTH EVERY MORNING AND TAKE TWO CAPSULES BY MOUTH EVERY NIGHT AT BEDTIME levalbuterol (Xopenex HFA) 45 MCG/ACT inhaler 2 puffs, Inhalation, Every 6 hours PRN levothyroxine (SYNTHROID, LEVOXYL) 100 mcg, Oral, Daily meclizine (ANTIVERT) 25 mg, 3 times daily PRN nitrofurantoin (macrocrystal-monohydrate) (MACROBID) 100 mg, Oral, 2 times daily nitroglycerin (NITROSTAT) 0.4 mg, Every 5 min PRN Wegovy 1 mg, Subcutaneous, Weekly REVIEW OF SYSTEMS: Review of Systems Vitals: There is no height or weight on file to calculate BMI. Tobacco Use: Medium Risk (01/06/2025) Received from [facility] Patient History Smoking Tobacco Use: Former Smokeless Tobacco Use: Never Passive Exposure: Not on file Alcohol Use: Not on file PHYSICAL EXAM: Shoulder Musculoskeletal Exam Inspection Left Left shoulder inspection is normal. Ecchymosis: none Peripheral edema: none Atrophy: none Masses: none Palpation Left Crepitus: mild Increased warmth: none Tenderness: present Anterior shoulder: mild Bicipital groove: moderate Range of Motion Left Left shoulder range of motion is normal. Active ROM: pain. Passive ROM: pain. Active forward elevation: 90. Passive forward elevation: 160. Shoulder active abduction: 90. Passive abduction: 160. Active external rotation at side: 40. Passive external rotation at side: 50. Internal rotation: L1. Strength Left External rotation: 5/5. Internal rotation: 5/5. Abduction: 3/5. Biceps: 5/5. Triceps: 5/5. Neurovascular Left Radial pulse: normal and 2+ Capillary refill: <3 sec Axillary nerve sensory distribution: normal Scapula Right Right shoulder scapula is normal. Left Left shoulder scapula is normal. Position: normal Winging: none Special Tests Left Rotator Cuff Signs Neer's test: positive Leyva test: positive Painful arc test: positive Biceps/oliver Signs Speed's test: positive General Constitutional: appears stated age Neurological: alert and oriented x3 IMAGING: XR shoulder 2+ views left Imaging Result: AP, and scapular Y of left shoulder show humeral head to be well centered in the glenoid fossa without evidence of fracture or dislocation or degeneration. The acromioclavicular joint was on remarkable. Lung hutchinson visualized on today's x- ray showed excellent lung markings. Impression no acute bonyprocess left shoulder. Procedures Orders Placed This Encounter Procedures XR shoulder 2+ views left Order Specific Question: Reason for exam: Answer: PAIN MR shoulder left wo IV contrast Standing Status: Future Standing Expiration Date: 01/20/2026 Order Specific Question: Reason for exam: Answer: Eval for Left Shoulder Rotator Cuff Tear ASSESSMENT: ICD-10-CM 1. Left shoulder pain, unspecified chronicity M25.512 XR shoulder 2+ views left 2. Chronic left shoulder pain M25.512 Ambulatory referral to Orthopaedic Surgery G89.29 MR shoulder left wo IV contrast CANCELED: MR shoulder left wo IV contrast PLAN: We have discussed her case, including her x-rays, physical exam, and symptoms at length today. We recommended a MRI of her left shoulder since her last MRI was 4 years ago. We'll see her back. We discussed restrictions and home exercise program for her left shoulder. Questions answered in laymen terms at the bedside. The diagnosis, home exercise plan and any ongoing restrictions/ recommendations reviewed. If unable to be reached in office, I recommend evaluation at nearest Emergency Room if any symptoms worsened or new symptoms develop for requiring urgent evaluation. documented in this encounterCameron [facility] Medical [id number] Evaluation note* Diagnosis Onset Date Resolution Status Admit Date Lumbar radiculopathy acuteFebruary 2024 10:47amLumbosacral spondylosisacuteFebruary 2024 10:47amNeck painacuteFebruary 2024 10:47amOther chronic painacuteFebruary 2024 10:47amSacroiliitisacuteFebruary 2024 10:47am [facility] Work Phone: 1(478) 554-540902-18-2025 Evaluation note* Diagnosis Onset Date Resolution Status Admit Date Lumbar radiculopathy acuteFebruary 2024 10:47amLumbosacral spondylosisacuteFebruary 2024 10:47amNeck painacuteFebruary 2024 10:47amOther chronic painacuteFebruary 2024 10:47amSacroiliitisacuteFebruary 2024 10:47amCervical spondylosisacuteMarch 2024 11:26amLumbar radiculopathyacuteMarch 2024 11:26amLumbosacral spondylosisacuteMarch 2024 11:26amOther chronic painacuteMarch 2024 11:26amSacroiliitisacuteMarch 2024 11:26am [facility] Work Phone: 1(693) 529-699802-17-2025 History of Present illness Narrative* Robert Newell MD - 01/18/2025 1:00 PM EST Images from the original note were not included. Adela Hopkins is a 64 y.o. female presents with chief complaint of 6 Month Follow Up of Chronic Conditions and Urinary symptoms (Pt ) HPI: History of Present Illness Patient presents today for follow up of chronic medical problems. She has been on Wegovy since November, with no reported issues. She is currently on a 0.5 mg dose, with 3 doses remaining, and is requesting a refill for the next 1 mg dose. She reports a weight lossof 15 pounds according to her scale, but only 11 pounds as per the clinic's scale. She maintains a high-protein diet, including protein drinks, and reports a decreased appetite. She experiences mild nausea but has regular bowel movements, although slightly loose, which she attributes to her reducedfood intake. She reports hair thinning over the past 4 months, which she believes may be related to her thyroid medication. She experiences urinary discomfort, particularly after prolonged standing at work, which she describes as severe enough to cause breathlessness. She does not report any vaginal burning or discharge. She also reports radiating pain down both arms during these episodes. She has a history of incomplete bladder emptying, with a residual volume of 400 cc post-void, for which she used a catheter at home for an extended period. She has not experienced any recent issues with this. She reports worsening leg pain due to nerve damage and neuropathy. Her neurologist has recommended a consultation with a pain specialist. She is currently on gabapentin, taking 2 doses in the morningand 2 at night, and is reluctant to increase her medication regimen. She reports intermittent neck pain upon waking, which resolves spontaneously throughout the day. She has a known diagnosis of arthritis and has undergone 3 neck surgeries with fusion. Supplemental Information She has discontinued her vitamin D supplement due to back pain, which resolved a few days after stopping the supplement. She has also stopped her B12 supplement, which was recently checked and found to be within normal limits. I have reviewed and reconciled the history and medication list with the patient today. HISTORIES: PAST MEDICAL HISTORY: Past Medical History: Diagnosis Date Age-related osteoporosis without current pathological fracture ([facility]) 06/19/2023 Anemia 06/19/2023 Asthmatic bronchitis ([facility]) 06/19/2023 CAD (coronary artery disease) ([facility]) Chronic pansinusitis 06/19/2023 Congestive heart failure ([facility]) 06/19/2023 Essential hypertension ([facility]) Gastroesophageal reflux disease 06/19/2023 History of hysterectomy 11/29/2021 Hyperlipemia ([facility]/HCC) Hypothyroidism ([facility]/HCC) Ischemic cardiomyopathy ([facility]/HCC) 06/19/2023 Microscopic hematuria 06/10/2023 Moderate major depression ([facility]/HCC) 06/19/2023 Nonrheumatic mitral valve regurgitation 12/26/2023 Radiculopathy, lumbosacral region Stage 3a chronic kidney disease (HCC) ([facility]) 06/19/2023 SURGICAL HISTORY: Past Surgical History: Procedure Laterality Date APPENDECTOMY CERVICAL FUSION SECTION, LOW TRANSVERSE CHOLECYSTECTOMY CORONARY ANGIOPLASTY WITH STENT PLACEMENT 2020 HYSTERECTOMY KNEE SURGERY Right knee scope SHOULDER SURGERY Left 2011 SOCIAL HISTORY: Social History Tobacco Use Smoking status: Former Current packs/day: 0.00 Types: Cigarettes Start date: 12/02/1971 Quit date: 12/02/1999 Years since quittin.1 Smokeless tobacco: Never Vaping Use Vaping status: Never Used Substance Use Topics Alcohol use: Yes Comment: 1 drink of alcohol or less per month. Caffeine: Coffee, 4-5 daily. Pop, 3 cans weekly Drug use: Never Depression: Not at risk (12/26/2023) PHQ-2 PHQ-2 Score: 0 FAMILY HISTORY: Family History Problem Relation Name Age of Onset Thyroid disease Mother Cancer Mother Heart disease Father Stroke Father Other (MRSA) Brother No Known Problems Maternal Grandmother Hypertension Other sibling Diabetes Other sibling Breast cancer Mother's Sister 69 MEDICATIONS: Current Outpatient Medications Medication Instructions amitriptyline (ELAVIL) 25 mg, Nightly PRN atorvastatin (LIPITOR) 80 mg, Oral, Daily carvedilol (COREG) 3.125 mg, Every 12 hours citalopram (CELEXA) 40 mg, Oral, Daily clopidogrel (PLAVIX) 75 mg, Oral, Daily diclofenac sodium 3 % gel apply 2 grams Externally Four times a day prn Entresto 24-26 MG tablet 1 tablet, Oral, 2 times daily gabapentin (Neurontin) 300 MG capsule TAKE 2 CAPSULES BY MOUTH EVERY MORNING AND TAKE TWO CAPSULES BY MOUTH EVERY NIGHT AT BEDTIME levalbuterol (Xopenex HFA) 45 MCG/ACT inhaler 2 puffs, Inhalation, Every 6 hours PRN levothyroxine (SYNTHROID, LEVOXYL) 100 mcg, Oral, Daily meclizine (ANTIVERT) 25 mg, 3 times daily PRN nitroglycerin (NITROSTAT) 0.4 mg, Every 5 min PRN Wegovy 1 mg, Subcutaneous, Weekly ALLERGIES: Allergies Allergen Reactions Ticagrelor Shortness of breath Other Reaction(s): Difficulty Breathing Cefdinir Other Reaction(s): facial tingling/ rash Esomeprazole Hives homicidal Metoclopramide Rash Other Reaction(s): Head Spinning / Hallucinations / Rash Other Reaction(s): Hives, vomitting/rash Penicillins Rash Other Reaction(s): Tongue Swelling / Rash Tramadol Itching Other Reaction(s): itching PHYSICAL EXAM: Visit Vitals BP 100/80 Pulse 75 Wt 210 lb SpO2 97% BMI 38.41 kg/m OB Status Postmenopausal Smoking Status Former BSA 2.04 m BP Readings from Last 3 Encounters: 01/18/25 100/80 12/29/24 126/78 12/03/24 126/70 Wt Readings from Last 3 Encounters: 01/18/25 210 lb 12/29/24 216 lb 12/03/24 217 lb Physical Exam Vitals reviewed. Constitutional: General: She is not in acute distress. Appearance: Normal appearance. Neck: Vascular: No carotid bruit. Cardiovascular: Rate and Rhythm: Normal rate and regular rhythm. Heart sounds: No murmur heard. No friction rub. Pulmonary: Breath sounds: Normal breath sounds. No wheezing or rhonchi. Musculoskeletal: Cervical back: Neck supple. Right lower leg: No edema. Left lower leg: No edema. Lymphadenopathy: Cervical: No cervical adenopathy. Skin: General: Skin is warm and dry. Neurological: Mental Status: She is alert. Results Laboratory Studies Thyroid levels were on the cusp of being too high in August. ASSESSMENT AND PLAN: Assessment & Plan 1. Essential hypertension (CMS/HCC) (Primary) Blood pressure doing well. Continue lifestyle modifications to include minimizing salt and alcohol,exercising regularly, and keeping weight down. Continue current medications. - Comprehensive metabolic panel; Future - Comprehensive metabolic panel 2. Stage 3a chronic kidney disease (HCC) (CMS/HCC) Labs were reviewed and discussed. Denies any new problems. Medications were reviewed. No changes today. Will continue risk factor modifications. - CBC and differential; Future - CBC and differential 3. Coronary artery disease involving [place] coronary artery of [place] heart without angina pectoris(CMS/HCC) Doing well. Denies any anginal symptoms. Continue aggressive risk factor modification. Continue current medications. Call if any problems. - Semaglutide-Weight Management (Wegovy) 0.5 MG/0.5ML solution auto-injector; Inject 1 mg under theskin 1 (one) time per week Dispense: 2 mL; Refill: 0 4. Chronic systolic congestive heart failure (CMS/HCC) Currently compensated. No problems with SOB, MORRIS, or increased edema with weight gain. Continue current medication regimen. Eat a heart healthy diet low in sodium. Monitor weights regularly and call if increased more than 5 pounds. Call immediately if any problems or concerns. 5. Pure hypercholesterolemia (CMS/HCC) Check labs next visit. - Lipid panel; Future - Lipid panel 6. Acquired hypothyroidism (CMS/HCC) Her last thyroid function test in August indicated levels nearing the upper limit. A re-evaluation of her thyroid function will be conducted to determine if a reduction in her thyroid medication is necessary. If the thyroid levels are too high, her medication will be adjusted accordingly. - TSH; Future - T4, free; Future - TSH - T4, free - T4, free; Future - TSH; Future - T4, free - TSH 7. Moderate major depression (CMS/HCC) Doing well. Continue current regimen. 8. Age-related osteoporosis without current pathological fracture (CMS/HCC) Stable. Continue to monitor. 9. Severe obesity (BMI 35.0-39.9) with comorbidity (CMS/HCC) She has been on Wegovy since November and has lost 15 pounds by her scale and 11 pounds by the clinic's scale. She is advised to maintain a balanced diet, ensuring adequate protein intake, and to engage in resistance exercises to prevent muscle wasting. Potential side effects of Wegovy, including nausea and constipation, were discussed. The dosage of Wegovy will be increased to 1 mg. If nausea becomes severe, the dosage may be reduced. - Semaglutide-Weight Management (Wegovy) 0.5 MG/0.5ML solution auto-injector; Inject 1 mg under theskin 1 (one) time per week Dispense: 2 mL; Refill: 0 10. BMI 38.0-38.9,adult As above. 11. Dysuria Her urine dipstick test did not reveal any significant abnormalities. She is advised to increase her water intake to aid in flushing out potential infections. A urine culture will be ordered for further analysis. If the urine culture is negative and symptoms persist despite increased water intake, a referral to a urologist may be considered. - URINARY TRACT INFECTION (HTRX) 12. Mild persistent asthmatic bronchitis without complication (CMS/HCC) Stable. Continue to monitor. 13. Chronic left shoulder pain Refer to ortho. - Ambulatory referral to Orthopaedic Surgery; Future 14. Neck pain She reports intermittent neck pain upon waking, which resolves throughout the day. This could be related to arthritis in the neck. She is advised to use a supportive pillow and monitor her symptoms. 15. Peripheral polyneuropathy She reports worsening leg pain due to nerve damage and neuropathy. She is currently taking gabapentin, 2 in the morning and 2 at night. She is advised to continue her current regimen and follow up with her neurologist as needed. PROCEDURE The patient has undergone 3 neck surgeries with fusion. documented in this [facility]02-17-2025 Miscellaneous Notes* Result Encounter Note - Robert Newell MD - 01/18/2025 1:00 PM EST Please call and tell her the thyroid is too high and we need to decrease the levothyroxine to 100 mcg once daily and check TSH in 6 weeks (send order). * Result Encounter Note - Robert Newell MD - 01/18/2025 1:00 PM EST Please call and tell her the urine culture was positive for infection. Send in Macrobid 100 mg PO BID x 5 days. Call if no better. documented in this [facility]02-17-2025 Progress note* Result Encounter Note - Robert Newell MD - 01/18/2025 1:00 PM EST Please call and tell her the thyroid is too high and we need to decrease the levothyroxine to 100 mcg once daily and check TSH in 6 weeks (send order). [id number] Progress note* Result Encounter Note - Robert Newell MD - 01/18/2025 1:00 PM EST Please call and tell her the urine culture was positive for infection. Send in Macrobid 100 mg PO BID x 5 days. Call if no better. [id number] History of Present illness Narrative* James Lynn Roberto, - 01/06/2025 11:20 AM EST Subjective Adela Hopkins is a 64 y.o. female Chief Complaint Follow-up 64-year-old female returns for follow-up she is doing well she denies any cardiovascular events, complaints or nitrate usage, dyspnea or edema or hospitalizations or heart failure, ambulates and works independently without assistance. She sustained inferior PA in April 2021 with primary PCI of the RCA with provisional angioplasty of the PLV branch subsequent PCI of the LAD in August 2021, she had a ischemic cardiomyopathy now with normalized left ventricular function and no heart failure. She has underlying obesity, hyperlipidemia, former smoker. At the time we were did review her echo from 2020 revealed normalized left ventricular function with ejection fraction estimated to be 55% with moderate mitral regurgitation She is now on Entresto and carvedilol, tolerating well We reviewed her echo from last year demonstrating moderate mitral regurgitation with preserved LV function. We did discuss the importance of keeping an eye on LV diameter, function and mitral valve physiology and regurgitant fraction. Therefore, recommendations: Obtain lipid panel, will also obtain follow-up echocardiogram to reassess mitral valve regurgitation, will follow-up with nurse practitioner in 8 to 9 months. Review of Systems All other systems reviewed and are negative. Vitals: 01/06/25 1142 BP: 132/70 BP Location: Left arm Patient Position: Sitting Pulse: 80 Weight: 98.3 kg (216 lb 12.8 oz) Height: 1.575 m (5' 2 ) Objective Physical Exam Constitutional: Appearance: Normal appearance. HENT: Nose: Nose normal. Neck: Vascular: No carotid bruit. Cardiovascular: Rate and Rhythm: Normal rate. Pulses: Normal pulses. Heart sounds: Normal heart sounds. Pulmonary: Effort: Pulmonary effort is normal. Abdominal: General: Bowel sounds are normal. Palpations: Abdomen is soft. Musculoskeletal: General: Normal range of motion. Cervical back: Normal range of motion. Right lower leg: No edema. Left lower leg: No edema. Skin: General: Skin is warm and dry. Neurological: General: No focal deficit present. Mental Status: She is alert. Psychiatric: Mood and Affect: Mood normal. Behavior: Behavior normal. Thought Content: Thought content normal. Judgment: Judgment normal. Allergies Lisinopril, Metoclopramide, Penicillins, and Tramadol Current Medications Current Outpatient Medications: albuterol 90 mcg/actuation inhaler, Inhale 2 puffs. As directed., Disp: , Rfl: atorvastatin (Lipitor) 80 mg tablet, Take 1 tablet (80 mg) by mouth once daily at bedtime., Disp: ,Rfl: carvedilol (Coreg) 3.125 mg tablet, TAKE 1 TABLET BY MOUTH TWICE A DAY WITH A MEAL, Disp: 180 tablet, Rfl: 3 citalopram (CeleXA) 40 mg tablet, Take 1 tablet (40 mg) by mouth once daily., Disp: , Rfl: clopidogrel (Plavix) 75 mg tablet, TAKE ONE TABLET BY MOUTH DAILY, Disp: 90 tablet, Rfl: 3 gabapentin (Neurontin) 300 mg capsule, Take 1 capsule (300 mg) by mouth 2 times a day., Disp: , Rfl: levothyroxine (Synthroid, Levoxyl) 112 mcg tablet, Take 1 tablet (112 mcg) by mouth once daily in the morning. Take before meals., Disp: , Rfl: nitroglycerin (Nitrostat) 0.4 mg SL tablet, Place 1 tablet (0.4 mg) under the tongue every 5 minutes if needed for chest pain (Report to the ER or call 911 after the third dose.)., Disp: , Rfl: sacubitriL-valsartan (Entresto) 24-26 mg tablet, Take 1 tablet by mouth 2 times a day., Disp: , Rfl: semaglutide, weight loss, (Wegovy) 0.5 mg/0.5 mL pen injector, Inject 0.5 mg under the skin 1 (one)time per week., Disp: , Rfl: Assessment/Plan 1. Coronary artery disease, unspecified vessel or lesion type, unspecified whether angina present, unspecified whether [place] or transplanted heart Follow Up In Cardiology 2. History of PTCA 3. History of ST elevation myocardial infarction (STEMI) 4. Ischemic cardiomyopathy 5. Primary hypertension 6. Mixed hyperlipidemia 7. Nonrheumatic mitral valve regurgitation 8. Atypical chest pain 9. Former smoker 10. BMI 39.0-39.9,adult Scribe Attestation By signing my name below, I, Courtney Gómez LPN , Scribe attest that this documentation has been prepared under the direction and in the presence of Loretta Mejia DO. Provider Attestation - Scribe documentation All medical record entries made by the Scribe were at my direction and personally dictated by me. Ihave reviewed the chart and agree that the record accurately reflects my personal performance of the history, physical exam, discussion and plan. [facility] Work Phone: [phone] 243-665602-05-2025 Instructions* Patient Instructions* Courtney Bartlett LPN - 01/06/2025 11:20 AM EST Please bring all medicines, vitamins, and herbal supplements with you when you come to the office. Prescriptions will not be filled unless you are compliant with your follow up appointments or have a follow up appointment scheduled as per instruction of your physician. Refills should be requested at the time of your visit. BMI was above normal measurement. Current weight: 98.3 kg (216 lb 12.8 oz) Weight change since last visit (-) denotes wt loss -2.2 lbs Weight loss needed to achieve BMI 25: 80.4 Lbs Weight loss needed to achieve BMI 30: 53.1 Lbs Provided instructions on dietary changes Provided instructions on exercise. * Attachments The following attachments cannot be sent through Care Everywhere. * Heart Healthy Diet (Trinid[place]) [facility] Work Phone: [phone] 834-835801-28-2025 History of Present illness Narrative* Vibha Clement, CARE CENTER MANAGER - 12/29/2024 1:00 PM EST Images from the original note were not included. Chief Complaint Patient presents with Back Pain Numbness Subjective Adela Hopkins is a 64 y.o. female. History of Present Illness The patient presents today for follow-up. She is accompanied by her . She had labs completedfor review. MRI of the cervical spine was also ordered at the prior neurology appointment, but the patient chose not to complete this. She states she did not see the point in the MRI. She states thisseemed like a waste of money. The patient states her neck pain, back pain, and balance have remained the same since the prior neurology appointment. Her back pain is constant and left-sided. Her neck pain is posterior. These can radiate to the extremities intermittently. She has not completed physical therapy recently. She states, I attempted, but the person I went to, I'll never go back to. She states she is sick and tiredof feeling sick and tired. She estimates she has not seen pain management in 2-3 years but reports that interventions via their office were very helpful for her pain previously. She states Dr. Salazar told her she could call him anytime if needed. The patient denies saddle anesthesia or bowel or bladder dysfunction. She denies progressive weakness but admits she is fairly sedentary at home. The patient states her feet feel like they are on fire constantly. They can also tingle at times. Her symptoms are bilateral (left < right) and worst in the toes. She states she can experience sharp pains in the dorsal aspect of the foot intermittently. Also, shooting pains up the leg which lastapproximately 2 seconds. She denies history of significant alcohol use. She states her mother and sister also have neuropathy with no identified cause. She denies skin discoloration or color changes in the lower extremities. She states her feet only swell if she stands on them too long. She denies any further new concerns. The patient reports a history of degenerative disc disease of the cervical spine and is status postcervical spine surgery x3. Most recent spine surgery was reportedly in [address] Jero Saucedo. Review of Systems Constitutional: Negative for appetite change, chills, fatigue, fever and unexpected weight change. HENT: Negative for trouble swallowing and voice change. Eyes: Negative for visual change, double vision or loss of vision Respiratory: Negative for cough, shortness of breath and wheezing. Cardiovascular: Negative for chest pain and palpitations. Gastrointestinal: Negative for abdominal pain, blood in stool, nausea and vomiting. Musculoskeletal: Positive for arthralgias, back pain (low and mid back), gait problem and neck pain. Negative for myalgias. Positive for bilateral knee pain Neurological: Positive for weakness (lower extremity) and numbness. Negative for dizziness, tremors, seizures, syncope, facial asymmetry, speech difficulty, light-headedness and headaches. Positive for paresthesias Psychiatric/Behavioral: Negative for confusion, hallucinations and suicidal ideas. The patient is not nervous/anxious. Past Medical History: Diagnosis Date CAD (coronary artery disease) (CMS/HCC) Disturbance of skin sensation Essential hypertension (CMS/HCC) History of hysterectomy 11/29/2021 Hyperlipemia (CMS/HCC) Hypothyroidism (CMS/HCC) Pain in limb Radiculopathy, lumbosacral region Past Surgical History: Procedure Laterality Date APPENDECTOMY CERVICAL FUSION SECTION, LOW TRANSVERSE CHOLECYSTECTOMY CORONARY ANGIOPLASTY WITH STENT PLACEMENT 2020 HYSTERECTOMY KNEE SURGERY Right knee scope SHOULDER SURGERY Left 2011 Family History Problem Relation Name Age of Onset Thyroid disease Mother Cancer Mother Heart disease Father Stroke Father Other (MRSA) Brother No Known Problems Maternal Grandmother Hypertension Other sibling Diabetes Other sibling Breast cancer Mother's Sister 69 Social History Tobacco Use Smoking status: Former Current packs/day: 0.00 Types: Cigarettes Start date: 12/02/1971 Quit date: 12/02/1999 Years since quittin.1 Smokeless tobacco: Never Substance Use Topics Alcohol use: Yes Comment: 1 drink of alcohol or less per month. Caffeine: Coffee, 4-5 daily. Pop, 3 cans weekly Allergies: Ticagrelor, Cefdinir, Esomeprazole, Metoclopramide, Penicillins, and Tramadol Vitals: 12/29/24 1310 BP: 126/78 Pulse: 88 SpO2: 96% Body mass index is 39.51 kg/m . weight: 216 lb Neurologic exam: Mental status and general appearance: Awake and alert with unlabored respirations. Oriented to person, place, and time. Recent and remotememory are intact. Speech is clear and fluent without aphasia. Speech is non-dysarthric. Attention and concentration are normal. Fund of knowledge is appropriate for level of education. Cranial nerves: CN II: Visual acuity is normal. Visual hutchinson full to confrontation. CN III, IV, : Pupils are equal, round, and reactive to light. Extraocular movements intact. No ptosis present. CN V: Facial sensation is normal. CN VII: Full and symmetric facial movement. CN VIII: Hearing is normal to finger rub bilaterally. CN IX and X: Palate elevates symmetrically. CN XI: Shoulder shrug is normal bilaterally. CN XII: Tongue is midline without atrophy or fasciculation. Motor: RUE strength deltoid , biceps , triceps , wrist extensors , wrist flexor , and fire prevention forester strength 4+/5. LUE strength deltoid , biceps , triceps , wrist extensors , wrist flexor , and fire prevention forester strength 4+/5. RLE strength iliopsoas, quadriceps, tibialis anterior, and plantar flexion strength 4+/5. LLE strength iliopsoas, quadriceps, tibialis anterior, and plantar flexion strength 4+/5. Tone and bulk are normal. Sensory: Sensation is intact to light touch throughout all four extremities. Sensation is intact to temperature in all extremities. Vibratory sensation is reduced in the distal lower extremities (left more prominent than right). Reflexes: RUE biceps reflex 2+ , brachioradialis reflex 2+. LUE biceps reflex 2+ , brachioradialis reflex 2+. RLE knee reflex 0. LLE knee reflex 0. Coordination: [id number] testing normal. Rapid alternating movements are normal. Gait: Steady. Review and summary of old records: Labs on 12/14/2024: Myoglobin 23, aldolase 3.2, CK 31 (all mildly low). Vitamin B12 744. MIKEY negative. Lyme total Ab negative. Vitamin B6 6.2. Hemoglobin A1c 5.6%. Serum protein electrophoresis unremarkable. [place] [facility] [place]: Multilevel degenerative disc disease without significant canal or neural foraminal stenosis. Spinal cord terminates in normal position without abnormal cord signal. At L1-L2, no posterior disc pathology. Mild facet joint degenerative change. No significant canal or neural foraminal stenosis. At L2-L3, mild broad- based disc bulge. Mild facet joint degenerative change. Mild canal and neural foraminal stenosis. At L3-L4, mild broad-based disc bulge. Mild facet joint degenerative change. Mild canal and neural foraminal stenosis. At L4-L5, mild broad-based disc bulge. Facet joint degenerative change. Mild canal and bilateral foraminalstenosis. At L5-S1, no posterior disc pathology. No canal or neural foraminal stenosis. Labs on 10/07/2024: Serum immunofixation unremarkable. No monoclonality detected. TSH 1.080. Vitamin B6 - no result. RPR non reactive. Copper 99. Labs on 08/06/2024: Vitamin B12 368. Hemoglobin A1c 5.7% (elevated). EMG of the bilateral lower extremities at [facility] on 07/23/2024: Generalized process such as polyneuropathy which is axonal loss and type and severe in degree electrically. This is new when compared to ED X evaluation dated 08/17/2015. MRI of the brain with an without contrast on 12/28/2021: No acute intracranial abnormality. No suspicious enhancement. Mild chronic microvascular ischemic disease is noted. Assessment/Plan Diagnoses and all orders for this visit: Gait instability Weakness DDD (degenerative disc disease), multilevel The patient reports chronic gait instability with onset years ago. She also reports chronic back pain, lower extremity weakness, and pain/sensory disturbance in the bilateral feet. I believe the patient's symptoms may multifactorial secondary to polyneuropathy, degenerative disc disease of the lumbar spine, and lumbosacral radiculopathy. MRI of the lumbar spine on 10/20/24 identified multilevel degenerative disc disease with disc bulges and mild spinal canal and neural foraminal stenosis at L2-L3, L3-L4, and L4-L5. MRI did not identify any significant stenosis. She takes gabapentin and believes this has provided some benefit for her pain. However, symptoms persist. The patient also reports neck pain, history of cervical DDD, progressively worsening balance, and has weakness of the upper extremities on clinical exam. I strongly recommended and ordered an MRI of the cervical spine at the prior neurology appointment, but the patient chose not to complete this. PLAN: - I had an extensive discussion with the patient today regarding options to help improve symptom management and pain control. This included referral to physical therapy, acupuncture, pharmacologic treatment options, and procedural interventions such as lumbar epidural injections. The patient declines to pursue any of these options via our office. She states, I'll just call Dr. Salazar cause every time I've been to him, he's done me good. - Okay to continue gabapentin 600 mg by mouth twice a day (prescribed by PCP). I did offer to increase this dose, but the patient declined - I again strongly recommended MRI of the cervical spine to assess for a structural lesion including degenerative cervical spine disease, cervical stenosis, and/or cervical myelopathy which may be contributing to the patient's neck pain, upper extremity weakness, and balance difficulty. The patient declined. She understands that, without MRI, underlying pathology may be missed, and this could result in progressively worsening symptoms (such as weakness, numbness, sensory disturbance, and gait disturbance) and/or disability. She accepts this risk - Continue physical therapy exercises Polyneuropathy The patient has polyneuropathy as identified on BLE EMG from 07/23/24 (severe, axonal loss). I believe this is likely contributing to reduced distal lower extremity sensation and imbalance. The patient reports a history of hypothyroidism and vitamin B12 deficiency which could possibly contribute to p olyneuropathy. Though, B12 level and TSH were within normal limits in 2023. Reviewed labs have haveotherwise been unremarkable for cause. I suspect this may be idiopathic. PLAN: - Check labs (rheumatoid factor, RPR, HIV, and hepatitis panel) to evaluate for other possible causes of polyneuropathy - I discussed various options to help improve neuropathic pain with the patient. The patient declined all discussed options - Okay to continue gabapentin as detailed above - Follow up closely with primary care provider for ongoing monitoring and management of hypothyroidism and vitamin B12 deficiency Red flag symptoms of spinal cord compression/myelopathy have been discussed with the patient. The patient understands to seek emergent care in the emergency department if she develops any worsening symptoms of these. Diagnosis and treatment options discussed in detail. All questions answered. The patient verbalizes understanding and is agreeable to the plan. Discussion in layman's terms. Follow up in the office within 1 month; sooner if needed for new or worsening symptoms. Vibha Clement NP [facility] documented in this encounterCameron Regional Medical [id number] Instructions* Patient Instructions* Vibha Clement NP - 12/29/2024 1:00 PM EST - Check labs - Follow up with pain management documented in this encounterCameron Regional Medical [id number] History of Present illness Narrative* Brenda Begum NP - 12/03/2024 9:30 AM EST Images from the original note were not included. Adela Hopkins is a 64 y.o. female presents with chief complaint of Cough (Symptoms started 1 week ago with a sore throat. Has taken Coricidin HBP, which did not help much. ) and Headache HPI: HPI History of Present Illness The patient presents for evaluation of sleep apnea, weight management, and cough. She reports experiencing fatigue during the day, even after a 12-hour sleep cycle. She also notes snoring and a lack of energy, which has led to a decrease in her physical activity, including cycling. She has been informed that she is a suitable candidate for Ozempic due to her cardiac condition. she believes that weight loss could potentially reduce her risk of another myocardial infarction. She has been making efforts to lose weight through diet and exercise. She has a history of asthmatic bronchitis and uses an albuterol inhaler. She reports a sensation ofheaviness in her chest but has not recently used her albuterol inhaler. She experiences coughing atnight, which is alleviated by Tessalon Perles. She has been using Coricidin and Tessalon Perles, which have significantly reduced her coughing. She has run out of Tessalon Perles. She has not been tested for COVID-19. She began experiencing symptoms a few days before [place], including a sore throat that progressed to chest discomfort and productive cough with green sputum. She also reports earpain on one side. She has expressed interest in being evaluated for sleep apnea due to observed shallow breathing patterns during sleep. She also exhibits hand movements during sleep and occasional leg movements. MEDICATIONS Current: albuterol inhaler, Coricidin, Tessalon Perles I have reviewed and reconciled the history and medication list with the patient today. HISTORIES: PAST MEDICAL HISTORY: Past Medical History: Diagnosis Date CAD (coronary artery disease) ([facility]) Disturbance of skin sensation Essential hypertension (CMS/HCC) History of hysterectomy 11/29/2021 Hyperlipemia (CMS/HCC) Hypothyroidism (CMS/HCC) Pain in limb Radiculopathy, lumbosacral region SURGICAL HISTORY: Past Surgical History: Procedure Laterality Date APPENDECTOMY CERVICAL FUSION SECTION, LOW TRANSVERSE CHOLECYSTECTOMY CORONARY ANGIOPLASTY WITH STENT PLACEMENT 2020 HYSTERECTOMY KNEE SURGERY Right knee scope SHOULDER SURGERY Left 2011 SOCIAL HISTORY: Social History Tobacco Use Smoking status: Former Current packs/day: 0.00 Types: Cigarettes Start date: 12/02/1971 Quit date: 12/02/1999 Years since quittin.0 Smokeless tobacco: Never Vaping Use Vaping status: Never Used Substance Use Topics Alcohol use: Yes Comment: 1 drink of alcohol or less per month. Caffeine: Coffee, 4-5 daily. Pop, 3 cans weekly Drug use: Never Depression: Not at risk (12/26/2023) PHQ-2 PHQ-2 Score: 0 FAMILY HISTORY: Family History Problem Relation Name Age of Onset Thyroid disease Mother Cancer Mother Heart disease Father Stroke Father Other (MRSA) Brother No Known Problems Maternal Grandmother Hypertension Other sibling Diabetes Other sibling Breast cancer Mother's Sister 69 MEDICATIONS: Current Outpatient Medications Medication Instructions albuterol HFA 90 mcg/act inhaler 2 puffs, 3 times daily PRN amitriptyline (ELAVIL) 25 mg, Nightly PRN atorvastatin (LIPITOR) 80 mg, Oral, Daily benzonatate (TESSALON) 100 mg, Oral, 3 times daily PRN, Do not crush or chew. carvedilol (COREG) 3.125 mg, Every 12 hours citalopram (CELEXA) 40 mg, Oral, Daily clopidogrel (PLAVIX) 75 mg, Oral, Daily cyancobalamine (VITAMIN B-12) 250 mcg, 2 times daily diclofenac sodium 3 % gel apply 2 grams Externally Four times a day prn gabapentin (Neurontin) 300 MG capsule TAKE 2 CAPSULES BY MOUTH EVERY MORNING AND TAKE TWO CAPSULES BY MOUTH EVERY NIGHT AT BEDTIME levothyroxine (SYNTHROID, LEVOXYL) 112 mcg, Oral, Every morning meclizine (ANTIVERT) 25 mg, 3 times daily PRN nitroglycerin (NITROSTAT) 0.4 mg, Every 5 min PRN predniSONE (DELTASONE) 50 mg, Oral, Daily sacubitril-valsartan (Entresto) 24-26 MG tablet 1 tablet, Oral, 2 times daily Vitamin D3 50 mcg ALLERGIES: Allergies Allergen Reactions Ticagrelor Shortness of breath Other Reaction(s): Difficulty Breathing Esomeprazole Hives homicidal Cefdinir Other Reaction(s): facial tingling/ rash Metoclopramide Rash Other Reaction(s): Head Spinning / Hallucinations / Rash Other Reaction(s): Hives, vomitting/rash Penicillins Rash Other Reaction(s): Tongue Swelling / Rash Tramadol Itching Other Reaction(s): itching PHYSICAL EXAM: Visit Vitals BP 126/70 (BP Location: Left arm, Patient Position: Sitting) Pulse 79 Temp 97.2 F Ht 5' 2 Wt 217 lb SpO2 96% BMI 39.69 kg/m OB Status Postmenopausal Smoking Status Former BSA 2.07 m BP Readings from Last 3 Encounters: 12/03/24 126/70 11/12/24 122/70 10/21/24 130/80 Wt Readings from Last 3 Encounters: 12/03/24 217 lb 11/12/24 214 lb 10/21/24 214 lb Physical Exam Constitutional: Appearance: She is obese. HENT: Right Ear: Tympanic membrane normal. Left Ear: Tympanic membrane normal. Nose: Congestion present. Mouth/Throat: Mouth: Mucous membranes are moist. Cardiovascular: Rate and Rhythm: Normal rate and regular rhythm. Heart sounds: Normal heart sounds. Pulmonary: Effort: Pulmonary effort is normal. Breath sounds: Wheezing present. Abdominal: Palpations: Abdomen is soft. Musculoskeletal: Cervical back: Neck supple. Neurological: General: No focal deficit present. Mental Status: She is alert. Psychiatric: Mood and Affect: Mood normal. Physical Exam There is no redness in the ears to suggest an infection, but there is some fluid behind one ear. Wheezes are heard in the lungs. Heart sounds normal. Vital Signs Temperature is 97.2. Results ASSESSMENT AND PLAN: Diagnosis Plan 1. Witnessed episode of apnea Ambulatory referral to Sleep Medicine 2. Essential hypertension ([facility]/HCC) Ambulatory referral to Sleep Medicine 3. Mild persistent asthmatic bronchitis without complication (CMS/[facility]) 4. Class 2 severe obesity due to excess calories with serious comorbidity and body mass index (BMI)of 39.0 to 39.9 in adult (CMS/HCC) 5. Upper respiratory tract infection, unspecified type benzonatate (Tessalon) 100 MG capsule 6. Mild intermittent asthma with acute exacerbation (CMS/HCC) predniSONE (Deltasone) 50 MG tablet Assessment & Plan 1. Suspected sleep apnea. She exhibits symptoms indicative of sleep apnea, including shallow breathing and daytime fatigue. Weight loss was discussed as a potential treatment for sleep apnea. A referral to a sleep specialist will be initiated for further evaluation and potential sleep studies. 2. Asthmatic bronchitis/URI Her cough and wheezing are likely exacerbations of her underlying asthmatic bronchitis, triggered by a recent viral infection. There is no evidence of pneumonia or bacterial infection at this time. Aprescription for Tessalon Perles will be provided to manage her cough. Additionally, a 5-day courseof prednisone will be initiated to alleviate her wheezing and cough. 3. Weight management/CAD She has expressed interest in using Wegovy for weight loss. A sample of Wegovy will be provided, and she will be instructed on its proper use. The initial dose will be 0.25 mg for 4 weeks, followed by an increase to 0.5 mg. She is advised to inject the medication into her abdomen, underarm, or thigh, rotating the injection site weekly. Potential side effects, including nausea and constipation, were discussed. She is encouraged to maintain a high-protein diet and engage in regular exercise to preserve muscle mass. documented in this encounterCameron Regional Medical [id number] History of Present illness Narrative* Jaimee Enrique NP - 10/21/2024 3:00 PM EST Images from the original note were not included. Subjective Patient ID: Adela Hopkins (: 1960) is a 64 y.o. female who presents for UTI. HPI History of Present Illness The patient presents for evaluation of multiple medical concerns. Patient states her UTI symptoms started two days ago. She complains of frequency, burning and difficulty urinating. Denies fevers or chills. She has had UTI's in the past. She is currently on carvedilol 3.25 mg, which was temporarily discontinued by her environmental science program director for a 30-day heart evaluation. She resumed the medication after a week. She also takes Plavix and recently refilled her Entresto prescription. She requests a refill of her thyroid medication and mentions that her gabapentin prescription was recently refilled. Gabapentin is used for nerve pain, which was confirmed by an EMG to be due to severe nerve damage in both legs and possibly her feet. She expresses frustration with the constant pain. She also requests a refill of her citalopram prescription. ALLERGIES She is allergic to PENICILLIN. Current Outpatient Medications Medication Instructions albuterol HFA 90 mcg/act inhaler 2 puffs, 3 times daily PRN amitriptyline (ELAVIL) 25 mg, Nightly PRN atorvastatin (LIPITOR) 80 mg, Oral, Daily carvedilol (COREG) 3.125 mg, Every 12 hours ciprofloxacin (CIPRO) 500 mg, Oral, Daily citalopram (CELEXA) 40 mg, Oral, Daily clopidogrel (PLAVIX) 75 mg, Oral, Daily cyancobalamine (VITAMIN B-12) 250 mcg, Oral, 2 times daily diclofenac sodium 3 % gel apply 2 grams Externally Four times a day prn gabapentin (Neurontin) 300 MG capsule TAKE 2 CAPSULES BY MOUTH EVERY MORNING AND TAKE TWO CAPSULES BY MOUTH EVERY NIGHT AT BEDTIME levothyroxine (SYNTHROID, LEVOXYL) 112 mcg, Oral, Every morning meclizine (ANTIVERT) 25 mg, 3 times daily PRN nitroglycerin (NITROSTAT) 0.4 mg, Every 5 min PRN sacubitril-valsartan (Entresto) 24-26 MG tablet 1 tablet, Oral, 2 times daily Vitamin D3 50 mcg Allergies Allergen Reactions Ticagrelor Shortness of breath Other Reaction(s): Difficulty Breathing Cefdinir Other Reaction(s): facial tingling/ rash Metoclopramide Rash Other Reaction(s): Head Spinning / Hallucinations / Rash Other Reaction(s): Hives, vomitting/rash Penicillins Rash Other Reaction(s): Tongue Swelling / Rash Tramadol Itching Other Reaction(s): itching Patient Active Problem List Diagnosis Microscopic hematuria Age-related osteoporosis without current pathological fracture (CMS/HCC) Anemia Asthmatic bronchitis (CMS/HCC) Chronic pansinusitis Congestive heart failure (CMS/HCC) Coronary artery disease (CMS/HCC) Essential hypertension (CMS/HCC) Gastroesophageal reflux disease Hypothyroidism (CMS/HCC) Internal derangement of left shoulder Ischemic cardiomyopathy (CMS/HCC) Moderate major depression (CMS/HCC) Morbid obesity (CMS/HCC) Stage 3a chronic kidney disease (HCC) (CMS/HCC) Status post hysterectomy Tension headache Pure hypercholesterolemia (CMS/HCC) Lumbar radiculopathy Nonrheumatic mitral valve regurgitation Paresthesia and pain of extremity Lesion of ulnar nerve, left upper limb Review of Systems Constitutional: Positive for fatigue. Negative for chills and fever. Genitourinary: Positive for difficulty urinating, dysuria, frequency and urgency. Objective Vital signs: BP 130/80 (BP Location: Left arm, Patient Position: Sitting) Pulse 72 Resp 16 Ht5' 2 Wt 214 lb SpO2 99% BMI 39.14 kg/m Office Visit on 10/21/2024 Component Date Value Ref Range Status Color, UA 10/21/2024 Yellow Final Clarity, UA 10/21/2024 Cloudy Final Glucose, UA 10/21/2024 Negative Negative - 1999(110) ++++ mg/dL Final Bilirubin, UA 10/21/2024 Negative Negative - 4(70) +++ mg/dL Final Ketones, UA 10/21/2024 Negative Negative - 160(16) ++++ mg/dL Final Spec Grav, UA 10/21/2024 1.005 1 - 1.03 Final Blood, UA 10/21/2024 Positive Negative - 50 Anthony/mcL Final pH, UA 10/21/2024 6.0 5 - 9 Final Protein, UA 10/21/2024 Negative Negative - 2000(20) ++++ mg/dL Final Urobilinogen, UA 10/21/2024 0.2 0.2 - 12 mg/dL Final Leukocytes, UA 10/21/2024 Positive Negative - 500+++ Chito/mcL Final Nitrite, UA 10/21/2024 Negative Negative - Positive Final Physical Exam Constitutional: Appearance: Normal appearance. HENT: Mouth/Throat: Mouth: Mucous membranes are moist. Eyes: Pupils: Pupils are equal, round, and reactive to light. Cardiovascular: Rate and Rhythm: Normal rate. Pulmonary: Effort: Pulmonary effort is normal. Abdominal: Tenderness: There is no right CVA tenderness or left CVA tenderness. Comments: + suprapubic tenderness Skin: General: Skin is warm and dry. Neurological: Mental Status: She is alert and oriented to person, place, and time. Psychiatric: Mood and Affect: Mood normal. Assessment/Plan Assessment & Plan 1. Urinary Tract Infection. Discussed UA results with patient. A urine culture will be performed. She will be initiated on Cipro, to be taken once daily for 5 days. A follow-up call will be made tomorrow to ensure the appropriateness of this treatment. 2. Medication Management. Her prescriptions for Synthroid, citalopram, and Plavix will be refilled. She recently received a 90-day supply of Entresto and atorvastatin, so no refills are needed for these medications at this time. She does not need a refill for gabapentin. Problem List Items Addressed This Visit Coronary artery disease (CMS/HCC) Relevant Medications clopidogrel (Plavix) 75 MG tablet Hypothyroidism (CMS/HCC) Relevant Medications levothyroxine (Synthroid, Levoxyl) 112 MCG tablet Moderate major depression (CMS/HCC) Relevant Medications citalopram (CeleXA) 40 MG tablet Other Visit Diagnoses Dysuria - Primary Relevant Orders POCT Urinalysis dipstick (Completed) Acute cystitis with hematuria Relevant Medications ciprofloxacin (Cipro) 500 MG tablet Other Relevant Orders URINARY TRACT INFECTION (HTRX) Health Maintenance Topic Date Due Colorectal Cancer Screening Never done Influenza Vaccine (1) 08/02/2024 Mammogram 07/22/2025 Immunization History Administered Date(s) Administered Influenza, injectable, MDCK, preservative free, quadrivalent 11/29/2021 Influenza, injectable, quadrivalent, preservative free 08/23/2020 Influenza, seasonal, injectable 12/01/2020 Pfizer Purple Cap SARS-CoV-2 Vaccination 12/07/2021, 12/28/2021 -Patient's chronic conditions have been reviewed in preparation for this appointment. Protocols reviewed and updated. A collaborative plan of care has been created for pt regarding specific health concerns. Any barriers to care have been identified and addressed. Any part of this document that has been added/copied from other documents has been reviewed for accuracy and updated as appropriate at the time of the patient encounter. -Follow up for Next scheduled follow-up. Jaimee Enrique NP documented in this encounterCameron Regional Medical [id number] History of Present illness Narrative* Vibha Clement NP - 10/12/2024 2:00 PM EST Images from the original note were not included. Chief Complaint Patient presents with Back Pain Numbness Subjective Adela Hopkins is a 64 y.o. female. History of Present Illness Adela is a 64-year-old female who presents today for follow-up. She had labs completed for review. MRI of the lower extremities was ordered at the prior appointment. The patient states the MRI is scheduled to be completed on 10/20/2024. The patient reports medial mid and low back pain. This is chronic and constant. She denies preceding injury. She states her back pain can radiate to the lateral thighs intermittently. It is aggravated by standing/activity and relieved by rest. She also reports discomfort in the legs while ambulating. She takes Tylenol as needed but states this is ineffective. She reports chronic lower extremity weakness (left more prominent than right). She denies saddle anesthesia or bowel/bladder dysfunction. The patient also has intermittent numbness in the bilateral toes. She reports an intermittent burning sensation in the plantar aspect of the bilateral feet and from the knees to the feet. She denies history of diabetes or significant alcohol use. She has chronic balance difficulty and states, my legs don't want to work sometimes, which causes her to lose her balance. She denies dizziness. She has not fallen since the prior neurology appointment. She is established with Dr. Salazar (pain management) and follows with him on an as-needed basis. The patient reports a history of degenerative disc disease of the cervical spine and is status postcervical spine surgery x3. Most recent spine surgery was reportedly in [address] Jero Saucedo. Review of Systems Constitutional: Negative for appetite change, chills, fatigue, fever and unexpected weight change. HENT: Negative for trouble swallowing and voice change. Eyes: Negative for visual change, double vision or loss of vision Respiratory: Negative for cough, shortness of breath and wheezing. Cardiovascular: Negative for chest pain and palpitations. Gastrointestinal: Negative for abdominal pain, blood in stool, nausea and vomiting. Musculoskeletal: Positive for arthralgias, back pain (low and mid back) and gait problem. Negative for myalgias. Neurological: Positive for weakness (lower extremity) and numbness. Negative for dizziness, tremors, seizures, syncope, facial asymmetry, speech difficulty, light-headedness and headaches. Positive for paresthesias. Psychiatric/Behavioral: Negative for confusion, hallucinations and suicidal ideas. The patient is not nervous/anxious. Home Medication List albuterol HFA 90 mcg/act inhaler amitriptyline 25 MG tablet; Commonly known as: Elavil atorvastatin 80 MG tablet; Commonly known as: Lipitor; TAKE ONE TABLET BY MOUTH DAILY citalopram 40 MG tablet; Commonly known as: CeleXA; Take 1 tablet (40 mg) by mouth Daily clopidogrel 75 MG tablet; Commonly known as: Plavix; Take 1 tablet (75 mg) by mouth in the morning. cyancobalamin 250 MCG tablet; Commonly known as: Vitamin B-12 Entresto 24-26 MG tablet; Generic drug: sacubitril-valsartan; TAKE ONE TABLET BY MOUTH TWICE A DAY gabapentin 300 MG capsule; Commonly known as: Neurontin; TAKE 2 CAPSULES BY MOUTH EVERY MORNING ANDTAKE TWO CAPSULES BY MOUTH EVERY NIGHT AT BEDTIME levothyroxine 112 MCG tablet; Commonly known as: Synthroid, Levoxyl; TAKE 1 TABLET BY MOUTH EVERY MORNING meclizine 25 MG tablet; Commonly known as: Antivert nitroglycerin 0.4 MG SL tablet; Commonly known as: Nitrostat Vitamin D3 50 MCG capsule Past Medical History: Diagnosis Date CAD (coronary artery disease) (CMS/HCC) Disturbance of skin sensation Essential hypertension (CMS/HCC) History of hysterectomy 11/29/2021 Hyperlipemia (CMS/HCC) Hypothyroidism (CMS/HCC) Pain in limb Radiculopathy, lumbosacral region Past Surgical History: Procedure Laterality Date APPENDECTOMY CERVICAL FUSION SECTION, LOW TRANSVERSE CHOLECYSTECTOMY CORONARY ANGIOPLASTY WITH STENT PLACEMENT 2020 HYSTERECTOMY KNEE SURGERY Right knee scope SHOULDER SURGERY Left 2011 Family History Problem Relation Name Age of Onset Thyroid disease Mother Cancer Mother Heart disease Father Stroke Father Other (MRSA) Brother No Known Problems Maternal Grandmother Hypertension Other sibling Diabetes Other sibling Breast cancer Mother's Sister 69 Social History Tobacco Use Smoking status: Former Current packs/day: 0.00 Types: Cigarettes Start date: 12/02/1971 Quit date: 12/02/1999 Years since quittin.8 Smokeless tobacco: Never Substance Use Topics Alcohol use: Yes Comment: 1 drink of alcohol or less per month. Caffeine: Coffee, 4-5 daily. Pop, 3 cans weekly Allergies: Ticagrelor, Cefdinir, Metoclopramide, Penicillins, and Tramadol Vitals: 10/12/24 1349 BP: 122/72 Body mass index is 39.87 kg/m . weight: 218 lb Neurologic exam: Mental status and general appearance: Awake and alert with unlabored respirations. Oriented to person, place, and time. Recent and remotememory are intact. Speech is clear and fluent without aphasia. Speech is non-dysarthric. Attention and concentration are normal. Fund of knowledge is appropriate for level of education. Cranial nerves: CN II: Visual acuity is normal. Visual hutchinson full to confrontation. CN III, IV, : Pupils are equal, round, and reactive to light. Extraocular movements intact. No ptosis present. CN V: Facial sensation is normal. CN VII: Full and symmetric facial movement. CN VIII: Hearing is normal to finger rub bilaterally. CN IX and X: Palate elevates symmetrically. CN XI: Shoulder shrug is normal bilaterally. CN XII: Tongue is midline without atrophy or fasciculation. Motor: RUE strength deltoid , biceps , triceps , wrist extensors , wrist flexor , and fire prevention forester strength 5/5. LUE strength deltoid , biceps , triceps , wrist extensors , wrist flexor , and fire prevention forester strength 5/5. RLE strength iliopsoas, quadriceps, tibialis anterior, plantar flexion, and dorsiflexion strength 4+/5. LLE strength iliopsoas, quadriceps, tibialis anterior, plantar flexion, and dorsiflexion strength 4+/5. Tone and bulk are normal. Sensory: Sensation is intact to light touch throughout all four extremities. Sensation is intact to temperature in all extremities. Reduced in the L5 dermatomal distribution onthe left. Vibratory sensation is reduced in the distal lower extremities (left more prominent than right). Reflexes: RUE biceps reflex 2+ , brachioradialis reflex 2+. LUE biceps reflex 2+ , brachioradialis reflex 2+. RLE Knee reflex 0. LLE Knee reflex 0. Coordination: Frhunx-sy-[id number] testing normal. Rapid alternating movements are normal. Gait: Steady. Review and summary of old records: Labs on 10/07/2024: Serum immunofixation unremarkable. No monoclonality detected. TSH 1.080. Vitamin B6 - no result. RPR non reactive. Copper 99. Labs on 08/06/2024: Vitamin B12 368. Hemoglobin A1c 5.7% (elevated). EMG of the bilateral lower extremities at [facility] on 07/23/2024: Generalized process such as polyneuropathy which is axonal loss and type and severe in degree electrically. This is new when compared to ED X evaluation dated 08/17/2015. MRI of the brain with an without contrast on 12/28/2021: No acute intracranial abnormality. No suspicious enhancement. Mild chronic microvascular ischemic disease is noted. Assessment/Plan Diagnoses and all orders for this visit: Gait instability DDD (degenerative disc disease), multilevel The patient reports chronic gait instability with onset years ago. She also reports chronic back pain, lower extremity weakness, and intermittent pain/sensory disturbance in the bilateral lower extremities. She takes gabapentin and believes this has provided some benefit for her pain. I believe thepatient's symptoms may multifactorial secondary to polyneuropathy, degenerative disc disease of thelumbar spine, and possible lumbosacral radiculopathy. BLE EMG on 07/23/24 could not confirm or deny a radicular process due to the presence on polyneuropathy. I believe MRI of the lumbar spine is warranted for further evaluation and to help guide treatment. PLAN: - Continue physical therapy exercises - Okay to continue gabapentin 600 mg by mouth twice a day (prescribed by PCP). The patient states she does not wish to increase this dose or start any further medications for symptom management at this time - MRI of the lumbar spine was ordered at the prior neurology appointment and is reportedly scheduled for 10/20/2024. I encouraged the patient to have this completed on the scheduled date - Pending MRI results and future clinical presentation, I believe the patient may benefit from epidural injections or pain management evaluation to help improve symptom control. She may also be a candidate for neurosurgery referral pending MRI results Polyneuropathy The patient has polyneuropathy as identified on BLE EMG from 07/23/24 (severe, axonal loss). I believe this is likely contributing to reduced distal lower extremity sensation and imbalance. The patient reports a history of hypothyroidism and vitamin B12 deficiency which could possibly contribute to p olyneuropathy. Though, recent B12 level and TSH were within normal limits in 2023. Reviewed labs have have otherwise been unremarkable for cause aside from elevated hemoglobin A1c of 5.7%. PLAN: - Further lab evaluation (vitamin B12, vitamin B6, hemoglobin A1c, MIKEY, Lyme ab, and protein electrophoresis) to assess for possible causes of polyneuropathy - I advised the patient to follow up closely with Robert Newell MD (primary care provider) for ongoing monitoring and management of hypothyroidism and vitamin B12 deficiency to help prevent further nerve damage - Okay to continue gabapentin as detailed above. The patient does not wish to increase this dose orstart any further medications for symptom management at this time Service was performed by OMAR Diaz in collaboration with Dr. Benoit who is present in the office today. Red flag symptoms of spinal cord compression/myelopathy have been discussed with the patient. The patient understands to seek emergent care in the emergency department if she develops any worsening symptoms of these. Diagnosis and treatment options discussed in detail. All questions answered. The patient verbalizes understanding and is agreeable to the plan. Discussion in layman's terms. Follow up in the office within 1 month; sooner if needed for new or worsening symptoms. Vibha Clement NP [facility] Cosigned by Jazmine Benoit DO at 10/13/2024 7:58 AM EST documented in this [facility]11-11-2024 Instructions* Patient Instructions* Vibha Clement NP - 10/12/2024 2:00 PM EST - Check labs - MRI of the lumbar spine documented in this [facility]10-15-2024 History of Present illness Narrative* Jazmine Benoit DO - 09/15/2024 3:15 PM EDT Images from the original note were not included. Chief complaint: Leg pain Subjective Adela Hopkins, 64 y.o., female Patient is here for a follow up for gait instability and pain in bilateral LE. She states she is here to find out what is going to be done about her nerve damage. She discontinued PT because this wasto painful and expensive. She states her pain has been terrible. She states her whole body hurts. Her lower back and legs are what she says hurt the most. She reports feelings of shooting electricityup her left leg. She reports tingling in bilateral feet and numbness in her toes on bilateral feet with the left being worse. Today she rates her pain a 9/10. She reports her balance is still bad. States it still looks like she is drunk when she walks. She denies any recent falls. She does report ru nning into wang when walking. Review of Systems Constitutional: Negative for appetite change, fatigue and fever. Respiratory: Negative for cough, shortness of breath and wheezing. Cardiovascular: Negative for chest pain, palpitations and leg swelling. Gastrointestinal: Negative for abdominal pain, constipation, diarrhea and nausea. Musculoskeletal: Positive for gait problem and neck pain. Negative for arthralgias and myalgias. Neurological: Positive for headaches. Negative for dizziness, tremors and numbness. Past Medical History: Diagnosis Date CAD (coronary artery disease) (CMS/HCC) Disturbance of skin sensation Essential hypertension (CMS/HCC) History of hysterectomy 11/29/2021 Hyperlipemia (CMS/HCC) Hypothyroidism (CMS/HCC) Pain in limb Radiculopathy, lumbosacral region Past Surgical History: Procedure Laterality Date APPENDECTOMY CERVICAL FUSION SECTION, LOW TRANSVERSE CHOLECYSTECTOMY CORONARY ANGIOPLASTY WITH STENT PLACEMENT 2020 HYSTERECTOMY KNEE SURGERY Right knee scope SHOULDER SURGERY Left 2011 Family History Problem Relation Name Age of Onset Thyroid disease Mother Cancer Mother Heart disease Father Stroke Father Other (MRSA) Brother No Known Problems Maternal Grandmother Hypertension Other sibling Diabetes Other sibling Breast cancer Mother's Sister 69 Social History Tobacco Use Smoking status: Former Current packs/day: 0.00 Types: Cigarettes Start date: 12/02/1971 Quit date: 12/02/1999 Years since quittin.8 Smokeless tobacco: Never Substance Use Topics Alcohol use: Yes Comment: 1 drink less than monthly. Caffeine: Coffee, 4-5 daily. Pop, 3 cans weekly Allergies: Ticagrelor, Cefdinir, Metoclopramide, Penicillins, and Tramadol Vitals: 09/15/24 1512 BP: 139/81 Pulse: 92 SpO2: 96% Body mass index is 39.98 kg/m . weight: 218 lb 9.6 oz Neurologic exam: Mental status: Awake, alert to person, place and time. Recent and remote memory are intact. Language is fluent without aphasia. Attention and concentration are normal. Fund of knowledge is appropriate for level of education. Cranial nerves: CN II: Visual acuity is normal. Visual hutchinson full to confrontation. CN III, IV, : pupils equal round and reactive to light. Extraocular movements intact. No ptosis present. CN V: Facial sensation is normal. CN VII: Full and symmetric facial movement. CN VIII: Hearing is normal to finger rub bilaterally: CN IX and X: Palate elevates symmetrically. CN XI: Shoulder shrug is normal bilaterally. CN XII: Tongue is midline without atrophy or fasciculation. Motor: Strength is 5/5 in the bilateral upper extremities and 4+/ 5 in the bilateral lower extremities Sensory: Sensation is intact to light touch throughout Four extremities. Reflexes: Deep tendon reflexes are 2+ in the upper extremities and 0 in the lower extremities Coordination: [id number] testing and rapid alternating movements are normal Gait: Normal Review and summary of old records: EMG of the bilateral lower extremities and advanced Neurology on 07/23/2024: Generalized process such as polyneuropathy which is axonal loss and type and severe in degree electrically. This is new when compared to ED X evaluation dated 08/17/2015. MRI of the brain with an without contrast on 12/28/2021: No acute intracranial abnormality. No suspicious enhancement. Mild chronic microvascular ischemic disease is noted. Assessment/Plan Diagnoses and all orders for this visit: Polyneuropathy DDD (degenerative disc disease), multilevel It is my impression that the patient has pain and paresthesias in the bilateral lower extremities. The patient states she feels off balance and feels as if her legs give out. She does have depressed reflexes on exam but does not have any apparent clear weakness at this time. She is on gabapentin which is somewhat helpful for her symptoms. She does have a history of degenerative disc disease of the cervical spine status post surgery x3 with the most recent [place] [address] Jero Saucedo. Certainly given her cervical spinal issues I am suspicious this may represent radicular pathology and potential degenerative disc disease of the lumbar spine. Additionally, EMG has identified polyneuropathy. Patient does not appear to have a known history of diabetes. Given the inability to exclude radiculopathy on EMG, the progressive nature of the symptoms, weakness on exam, dermatomal distribution and reflex changes and failure of physical therapy I am concerned for compressive lesion which could be debilitating if not correctly identified and treated. Certainly with the patient's history of extensive surgical spine surgery degenerative changes of the lumbar spine of a similar nature are strongly considered. Plan: Continue physical therapy Polyneuropathy laboratory evaluation MRI of the lumbar spine without contrast Pending on results and clinical course we may consider imaging of the lumbar spine with MRI and thepatient may be a candidate for epidural injection Okay to continue gabapentin Pt has been fully educated on their diagnosis, lab results, treatment options, follow up plan, and return instructions documented in this encounterCameron [facility] Medical [id number] History of Present illness Narrative* Chirag Ba, [employer] LO[employer] COLLECTIONS SUPERVISOR - 09/08/2024 1:50 PM EDT Lesions: Location: Abdomen Duration: About 10 years or so Quality: Very itchy, bothersome Modifying factors: Aggravated by picking Associated symptoms: Crusty bump Treatments: None New patient, referred by Maggie Walter NP All pertinent medical history, medications, and allergies were reviewed. General Exam: alert, oriented to person, place, and time, normal affect, well appearing A focused exam completed based on patient reported problems, see below: 1. Inflamed seborrheic keratosis Left Abdomen (side) - Lower Inflamed seborrheic keratoses: pink and brown stuck on verrucous scaly papule with surrounding erythema and bloody crust. The patient was informed that symptomatic seborrheic keratoses are benign growths that become inflamed, itchy, tender, traumatized, caught on clothing, or bleed. Symptomatic lesions can be treated with cryotherapy or curretage. Thicker lesions treated with cryotherapy may require more than one treatment. The patient was instructed to notify the office if abnormal redness or tenderness develops atthe treatment site. Cryotherapy today, see procedure note. Diagnosis: Inflamed seborrheic keratosis Indication: Inflamed Consent: Verbal consent was obtained and risks were discussed, including, but not limited to risks of scarring, darker or city controller pigmentary changes, recurrence, incomplete removal and infection. Method: Liquid nitrogen was used to treat the lesion(s) with two 5-10 second freeze-thaw cycles Number of lesions treated: 1 Post-procedure instructions: Instructions were given orally and in writing. The office will be contacted if the lesion fails to resolve despite treatment, or if a side effect develops such as abnormal crusting, scabbing, redness or tenderness Cryotherapy, skin lesion - Left Abdomen (side) - Lower 2. Skin tag Neck - Anterior Fleshy, skin-colored sessile and pedunculated papules. The patient was informed that skin tags are benign growths usually found around the neck or in the axillae. No treatment is necessary, but at times they can get caught on jewelry or clothing or become inflamed. Skin tags can be removed with scissors or liquid nitrogen for a cosmetic fee. Recommend use of OTC wart freeze off Next Visit: prn for any new/changing lesions documented in this encounterCameron Regional Medical [id number] History of Present illness Narrative* Vimal Baeza, PT - 09/07/2024 10:30 AM EDT Physical Therapy Treatment Visit Patient Name: Adela Hopkins Today's Date: 09/07/2024 Encounter Diagnoses Name Primary? Pain in both lower extremities Yes Paresthesia Visit number: 4 Timed Code Treatment: 25 minutes Total Treatment Time: 35 minutes Time In: 1030 AM Time Out: 1100 AM History: Pt. Presents to PT with c/c bilateral LE weakness/poor balance/decreased coordination which started a year ago but in the last 3 months she has noticed a significant decline in her functional mobility. Pt. Works part-time at [employer]. Pt. Had EMG in bilateral LE on 07/23/24, results in nerve damage but will need more testing. Pt. Reports of increased difficulty with stairs and uneven surfaces. Pt. Reports she walks drunk feeling but she is not drunk. Precautions: universal Subjective States L LE is worse than R. Reports she continues to have a lot of leg pain and weakness. Difficulty standing for long periods of time. Pain: 6/10 low back, 7/10 legs (knee to feet worst) Objective: PT Evaluation LE ROM: WFL in all planes Flexibility: mild bilateral LE muscle tightness Strength: left LE 4-/5, right LE 4-/5 Functional mobility: mild use of UE assist with sit to stand Balance: fair dynamic standing balance Gait: independent but at slow pace Treatment: Manual Therapy: (held minutes ) Delivered manual ther, pt prone over pillows STM to lumbar paraspinals, sacral distractions, gentle PA mobs to improve mobility and decrease pain Therapeutic Exercise: ( 25 minutes unsupervised) Guided pt through ther and flex exercises per gridto improve trunk core, LE strength and functional mobility Therapeutic Activity: Exercises to improve dynamic activities, functional tasks, functional mobility to return to prior activity level Gait Training: Neuromuscular re-education: ( minutes supervised ) Core lumbar ther ex focusing on transverse abdominal strength Modalities: ( Minutes) Post session pt prone MHP to LB spine to decrease muscle tightness and soreness Assessment: Pt. Has participated in 4 PT session with start of POC on 07/30/24 to help improve LE strength and balance. Performed mostly open chain exercises due to patient having poor tolerance with ther ex. Pt. Continues to have constant LE pain. Pt. Did complete all ther ex at 20 reps to help improve LE muscle strength to help improve her quality of life. Pt. Was fatigued at end of PT session and held other exercises. Pt. Demonstrate poor exercise tolerance. Outcome Measure: in chart Rehab prognosis: good Short Term Goal: To be met in 2 weeks Goal 1: Pt to be instructed in home exercise program. Care Home Goals: To be met in 10 weeks Goal 1: Pt to report independence and compliance with home program. Goal 2: Pt. Will report of 2/10 or less back/leg pain while performing work tasks to help improve her quality of life. Goal 3: Pt. Will demonstrate normal bilateral LE muscle flexibility to help decrease pain and improve her functional mobility. Goal 4: Pt. Will demonstrate 5/5 right LE strength grossly in all planes to allow her to walk/standfor long periods of time to help improve her functional mobility. Goal 5: Pt. Will demonstrate 5/5 left LE strength grossly in all planes to allow her to walk/stand for long periods of time to help improve her functional mobility. Goal 6: Pt. Will demonstrate good dynamic standing to help improve her functional mobility. Pt will benefit from skilled PT for 2-3x/week from to to address the above impairments. I hereby deem this POC medically necessary. Please sign below. Date: documented in this [facility]09-30-2024 Telephone encounter Note* Telephone Encounter - Lilo Hawthorne - 08/31/2024 10:00 AM EDT Need to double check her last PT 07/30 if cont [facility] [id number] Miscellaneous Notes* Telephone Encounter - Lilo Hawthorne - 08/31/2024 10:00 AM EDT Need to double check her last PT 07/30 if cont * Telephone Encounter - Lilo Hawthorne - 08/31/2024 9:59 AM EDT $30.[address] this [facility]09-30-2024 Telephone encounter Note* Telephone Encounter - Lilo Hawthorne - 08/31/2024 9:59 AM EDT $30.00 copay. [facility] [id number] History of Present illness Narrative* Maggie Walter, CARE CENTER MANAGER - 08/18/2024 3:00 PM EDT Adela Hopkins is a 64 y.o. female presents with chief complaint of Hospital Follow-up HPI: Pt is here for hospital follow-up for COVID and low heart rate. She still has headache, right ear ache, she has yellow mucous from her sinuses and chest. She is coughing day and night. She has a 30 day heart monitor she is wearing. She was about to be scheduled for her colonoscopy but could not getscheduled due to her hospitalization. History of Present Illness The patient presents for evaluation of multiple medical concerns. She is accompanied by an adult male. She was taken to the emergency room due to chest pain, where she was administered nitroglycerin. Concurrently, she was diagnosed with COVID-19, which was suspected to be the cause of her chest pain due to associated coughing. She also reports a headache, earache, and significant nasal discharge, which she believes is draining down her throat. She has been using Coricidin, which seems to alleviateher symptoms. She experiences numbness and tingling in both legs. Despite taking gabapentin 600 mg three times a day, she reports no relief from these symptoms. She does not wish to increase at this time. She would like to discuss with Dr Benoit which she will schedule her follow up appt. I have reviewed and reconciled the history and medication list with the patient today. HISTORIES: PAST MEDICAL HISTORY: Past Medical History: Diagnosis Date CAD (coronary artery disease) ([facility]) Disturbance of skin sensation Essential hypertension ([facility]) History of hysterectomy 11/29/2021 Hyperlipemia (CMS/HCC) Hypothyroidism ([facility]) Pain in limb Radiculopathy, lumbosacral region SURGICAL HISTORY: Past Surgical History: Procedure Laterality Date APPENDECTOMY CERVICAL FUSION SECTION, LOW TRANSVERSE CHOLECYSTECTOMY CORONARY ANGIOPLASTY WITH STENT PLACEMENT 2020 HYSTERECTOMY KNEE SURGERY Right knee scope SHOULDER SURGERY Left 2010 SOCIAL HISTORY: Social History Tobacco Use Smoking status: Former Current packs/day: 0.00 Types: Cigarettes Start date: 12/02/1971 Quit date: 12/02/1999 Years since quittin.7 Smokeless tobacco: Never Vaping Use Vaping status: Never Used Substance Use Topics Alcohol use: Yes Comment: 1 drink less than monthly. Caffeine: Coffee, 4-5 daily. Pop, 3 cans weekly Drug use: Never Depression: Not at risk (12/26/2023) PHQ-2 PHQ-2 Score: 0 FAMILY HISTORY: Family History Problem Relation Name Age of Onset Thyroid disease Mother Cancer Mother Heart disease Father Stroke Father Other (MRSA) Brother No Known Problems Maternal Grandmother Hypertension Other sibling Diabetes Other sibling Breast cancer Mother's Sister 69 MEDICATIONS: Current Outpatient Medications Medication Instructions albuterol HFA 90 mcg/act inhaler 2 puffs, Inhalation, 3 times daily PRN amitriptyline (ELAVIL) 25 mg, Oral, Nightly PRN atorvastatin (LIPITOR) 80 mg, Oral, Daily carvedilol (COREG) 3.125 mg, Oral, Every 12 hours citalopram (CELEXA) 40 mg, Oral, Daily clopidogrel (PLAVIX) 75 mg, Oral, Daily cyancobalamine (VITAMIN B-12) 250 mcg, Oral, Daily diclofenac sodium 3 % gel apply 2 grams Externally Four times a day prn doxycycline (VIBRAMYCIN) 100 mg, Oral, 2 times daily, Take with at least 8 ounces (large glass) of water, do not lie down for 30 minutes after gabapentin (Neurontin) 300 MG capsule TAKE 2 CAPSULES BY MOUTH EVERY MORNING AND TAKE TWO CAPSULES BY MOUTH EVERY NIGHT AT BEDTIME levothyroxine (SYNTHROID, LEVOXYL) 112 mcg, Oral, Every morning meclizine (ANTIVERT) 25 mg, Oral, 3 times daily PRN nitroglycerin (Nitrostat) 0.4 MG SL tablet as directed Sublingual sacubitril-valsartan (Entresto) 24-26 MG tablet 1 tablet, Oral, 2 times daily Vitamin D3 50 mcg, Oral, Daily ALLERGIES: Allergies Allergen Reactions Ticagrelor Shortness of breath Cefdinir Other Reaction(s): facial tingling/ rash Metoclopramide Rash Other Reaction(s): Head Spinning / Hallucinations / Rash Penicillins Rash Other Reaction(s): Tongue Swelling / Rash Tramadol Itching Other Reaction(s): itching PHYSICAL EXAM: Visit Vitals BP 110/78 (BP Location: Left arm, Patient Position: Sitting) Pulse 75 Ht 5' 2 Wt 215 lb SpO2 97% BMI 39.32 kg/m OB Status Postmenopausal Smoking Status Former BSA 2.07 m BP Readings from Last 3 Encounters: 08/18/24 110/78 08/05/24 112/70 07/16/24 130/78 Wt Readings from Last 3 Encounters: 08/18/24 215 lb 08/05/24 218 lb 07/16/24 218 lb Physical Exam HENT: Right Ear: Tympanic membrane and external ear normal. Left Ear: Tympanic membrane and external ear normal. Nose: Congestion and rhinorrhea present. Right Turbinates: Enlarged. Left Turbinates: Not enlarged. Right Sinus: Maxillary sinus tenderness and frontal sinus tenderness present. Left Sinus: Maxillary sinus tenderness and frontal sinus tenderness present. Mouth/Throat: Mouth: Mucous membranes are moist. Neck: Thyroid: No thyroid mass or thyromegaly. Cardiovascular: Rate and Rhythm: Normal rate and regular rhythm. Heart sounds: No murmur heard. No friction rub. No gallop. Pulmonary: Effort: Pulmonary effort is normal. Breath sounds: Normal breath sounds. Abdominal: General: Bowel sounds are normal. Palpations: Abdomen is soft. Tenderness: There is no abdominal tenderness. Musculoskeletal: Right lower leg: No edema. Left lower leg: No edema. Skin: General: Skin is warm and dry. Neurological: Mental Status: She is alert and oriented to person, place, and time. Psychiatric: Mood and Affect: Mood normal. Thought Content: Thought content normal. Results Imaging Chest x-ray on the and showed no signs of Covid pneumonia. Testing Nerve test on legs indicated some neuropathy. ASSESSMENT AND PLAN: Assessment & Plan 1. Chest pain, unspecified type She took Ntg at home and again in ER which hospital felt caused syncope. No further heart issues were observed on monitor in the hospital. Symptoms resolved. She does have Holter monitor on for 30 days. Her Carvedilol is on hold until monitor is done. She is to follow up with Cardiology. 2. Syncope, unspecified syncope type As above. 3. Bradycardia As above. 4. Acute non-recurrent frontal sinusitis Recent blood work, x-rays, and heart ultrasound were reviewed. X-rays conducted on 08/10/2024 and 08/12/2024 did not indicate any signs of COVID-19 pneumonia. However, she appears to have a sinus infection, likely exacerbated by recent COVID-19. An antibiotic will be prescribed to alleviate her sinus infection, cough, and earache. She is advised to continue taking Coricidin. Work note needed. - doxycycline (Vibramycin) 100 MG capsule; Take 1 capsule (100 mg) by mouth in the morning and 1 capsule (100 mg) before bedtime. Do all this for 7 days. Take with at least 8 ounces (large glass) of water, do not lie down for 30 minutes after. Dispense: 14 capsule; Refill: 0 5. Polyneuropathy A nerve test conducted by Dr. Benoit revealed some neuropathy, indicating that some of her nerves are not responding as expected. She reports numbness and tingling in both legs and is currently taking gabapentin 600 mg three times a day, which has not been effective. She will wait to discuss increasing the dose with Dr. Benoit. documented in this encounterCameron Regional Medical [id number] History and physical note Author Fartun Tran [facility] August 10, 2024 6:33pmNote Date/TimeSeptember 2023 4:36[place] [address] Hospitalist H&P Signed Patient: Adela Hopkins V MR#: [id number] : 1960 Acct:[id number] Age/Sex: 64 / F Adm Date: 4 Loc: Room: [address] [place] [address] Type: ADM INOo Attending Dr: Fartun Tran MD Copies to: MD Robert Rebolledo MD~ HPI DATE OF EXAMINATION: 08/10/24 CHIEF COMPLAINT: Chest pain HISTORY OF PRESENT ILLNESS: Patient is a 64-year-old female with medical history as listed below presented to the ER complaining of chest pain. Patient states that around 9:00 this morning started having chest pain after she was eating and drink a cup of coffee. She states with left-sided and felt he was going to the left armwith alittle pain on his shoulder posteriorly. She does report that she has been coughing over the past couple of days and found to have COVID-positive while here which can explain her symptoms of cough, fatigue and tiredness and weakness and mild shortness of breath. Denies sputum production, dizziness, lightheadedness,syncope or LOC. She did take nitro at home which seemed to help but her pain came back. Her at bedside states that he has been sick also and he thinks he caught COVID from work and give it to the patient according to him. In the ER here, patient hemodynamically relatively stable, initial EKG showed sinus rhythm with first-degree AV block heart rate and 81 QTc 455, no obvious acute hemic changes, given nitroglycerin x 3 in the ER with morphine 4 mg with some Zofran for her nausea. Afebrile here, no leukocytosis. Kidney function appears stable compared to prior. Troponin within normal limit, chest x-ray with no acute pathology, as per ER, patient did get up to goto the commode and the daughter states that she finished up and was actually standing up to get back into the bed and became very pale and was saying she did not feel well patient stated her soul was leaving her body . According to a cardiac monitordownstairs her heart rate dropped to 50s and theactually lasted roughly 10 minutes even when the patient was sitting and laying flat in bed as per ER report. Repeat EKG was performed which showed concerns for second-degree type II as per ER. During that event her blood pressure also dropped around 100s. EP on- call Dr. Greenberg was contacted int ER and communicated with EKG through current protocol channels. As per EP input, he did feel this likely represents sort of vasovagal response after the nitrates and getting up. He didrecommend to keep the patient here for observation and will see the patient in the hospital. She probably will need event monitor at home. Decision was made to keep the patient for further evaluation and management. Review of Systems Review of Systems Review of systems: 10 systems are reviewed and are negative except as mentioned elsewhere in the documentation [facility] Medical History Heart attack Hypertension Vagus nerve disorder Pt reports need for marquez cath for any procedure longer than 15 min. History of code blue after heart cath, environmental science program director reported sensitive vagus nerve and instructed pt to request catheter for anyprocedure longer than 15 minutes. Cervical cancer GERD (gastroesophageal reflux disease) Ex-smoker Hypothyroid Neuropathy Hyperlipemia Surgical History History of bilateral carpal tunnel release History of cholecystectomy H/O shoulder surgery left shoulder H/O arthroscopy of knee right H/O neck surgery x3 H/O section H/O tubal ligation History of cardiac cath History of appendectomy H/O: hysterectomy d/t cervial cancer Family History Father Malignant neoplasm of brain Myocardial infarction Stroke Mother Colon cancer Sister Lupus Fibromyalgia Brother Hypothyroid Brother S/P CABG x 4 Heart disease Father Malignant neoplasm of brain Cancer Legacy FamHx Problem: Diagnosed with Cancer Family/Other Legacy FamHx Problem: father, --heart attack/stroke:mother, --colon cancer:1 brother, --cirrhosis/mrsa Mother Cancer Legacy FamHx Problem: Diagnosed with Cancer Family history of colon cancer Social History Smoking Status: Never smoker Tobacco Type: cigarettes Substance Use Type: None Substance Abuse Comment: rarely Social History Comments: quit smoking 16 years ago Meds Medications and Allergies Allergies Penicillins Allergy (Severe, Verified 08/10/24 12:12) Swelling of Lip/Tongue/Throat amoxicillin Allergy (Unknown, Verified 08/10/24 12:12) rash esomeprazole [From Vimovo] Allergy (Unknown, Verified 08/10/24 12:12) Hives, homicidal metoclopramide [From Reglan] Allergy (Unknown, Verified 08/10/24 12:12) Hives, vomitting/rash naproxen [From Vimovo] Allergy (Unknown, Verified 08/10/24 12:12) Hives, homicidal penicillin G Allergy (Unknown, Verified 08/10/24 12:12) rash ticagrelor [From Brilinta] Allergy (Verified 08/10/24 12:12) Difficulty Breathing Home Medications citalopram 20 mg tablet (Celexa) 20 mg PO DAILY 10/01/20 [History Confirmed 08/10/24] levothyroxine 75 mcg capsule 75 mcg PO DAILY 10/01/20 [History Confirmed 08/10/24] albuterol sulfate 90 mcg/actuation aerosol inhaler 2 puff inhalation Q6H PRN Shortness Of Breath 12/22/20 [History Confirmed 08/10/24] carvedilol 6.25 mg tablet 6.25 mg PO BID.WITH.MEALS 30 days #60 tabs 04/07/21 [Rx Confirmed 08/10/24] atorvastatin 80 mg tablet 80 mg PO QPM 30 days #30 tabs 04/10/21 [Rx Confirmed 08/10/24] nitroglycerin 0.4 mg sublingual tablet 0.4 mg sublingual Q5M PRN Chest Pain 30 days #25 tabs 05/10/21 [Rx Confirmed 08/10/24] clopidogrel 75 mg tablet 75 mg PO DAILY 08/21/21 [History Confirmed 08/10/24] isosorbide mononitrate 30 mg tablet,extended release 24 hr 30 mg PO DAILY 08/21/21 [History Confirmed 08/10/24] losartan 25 mg tablet 25 mg PO DAILY 08/21/21 [History Confirmed 08/10/24] pantoprazole 20 mg tablet,delayed release (Protonix) 40 mg PO DIRECTED PRN Acid Reflux 08/21/21 [History Confirmed 08/10/24] trazodone 50 mg tablet 50 mg PO QHS PRN Insomnia 08/21/21 [History Confirmed 08/10/24] benzonatate 100 mg capsule 100 mg PO TID PRN cough #15 caps 01/16/24 [Rx Confirmed 08/10/24] ondansetron 4 mg disintegrating tablet 4 mg PO Q8HR PRN nausea and vomiting 3 days #9 tabs 01/16/24[Rx Confirmed 08/10/24] gabapentin 300 mg capsule 300 mg PO BID 08/10/24 [History Confirmed 08/10/24] sacubitril 24 mg-valsartan 26 mg tablet (Entresto) 1 tab PO BID 08/10/24 [History Confirmed 08/10/24] Exam Physical Exam Vital Signs: Temp Pulse Resp BP Pulse Ox O2 Del Method O2 Flow Rate 98.1 F 68 16 116/51 L 99 Nasal Cannula 1 08/10/24 12:21 08/10/24 16:05 08/10/24 16:05 08/10/24 16:05 08/10/24 16:27 08/10/24 16:27 08/10/24 16:27 Narrative: Const General: cooperative HEENT Normal oropharyngeal mucosa without any ulcers or exudates Eyes: Conjunctiva normal Pulmonary Auscultation: clear to auscultation , no crackles, no wheezes Cardiovascular Rate: normal rate Rhythm: regular rhythm Heart Sounds: S1 normal, S2 normal and no murmurs GI Inspection: non-distended Palpation: soft, not firm and nontender. No rigidity or rebound. Deferred Neuro General: alert, awake and oriented x3. No obvious new focal deficit Musculoskeletal: normal range of motion Extrem General: no cyanosis, no pedal edema Psych Appearance: appropriate affect. Grossly normal Results - Hospitalist H&P Lab Results Labs: Laboratory Last Values Corrected WBC 7.6 X10E3/uL (3.8-11.6) 08/10/24 13:06 Uncorrected WBC Count 7.6 x10E3/uL (3.8-11.6) 08/10/24 13:06 RBC 3.79 X10E6/uL (3.60-5.00) 08/10/24 13:06 Hgb 11.7 g/dL (11.8-15.4) L 08/10/24 13:06 Hct 34.8 % (34.0-46.4) 08/10/24 13:06 MCV 91.9 fl (80-100) 08/10/24 13:06 MCH 30.8 pg (24.7-34.3) 08/10/24 13:06 MCHC 33.5 g/dL (32.0-35.0) 08/10/24 13:06 RDW 14.8 % (11.9-15.3) 08/10/24 13:06 Plt Count 227 x10E3/uL (150-450) 08/10/24 13:06 MPV 8.3 fl (6.3-10.7) 08/10/24 13:06 Neut % (Auto) 86.1 % (.) 08/10/24 13:06 Lymph % (Auto) 8.2 % (.) 08/10/24 13:06 [place]ot % (Auto) 4.4 % (.) 08/10/24 13:06 Eos % (Auto) 0.7 % (.) 08/10/24 13:06 Baso % (Auto) 0.6 % (.) 08/10/24 13:06 Nucleat RBC Rel Count 0.1 /100 WBC (0-0.5) 08/10/24 13:06 Neut # (Auto) 6.5 x10E3/uL (1.8-7.7) 08/10/24 13:06 Lymph # (Auto) 0.6 x10E3/uL (1.00-4.8) L 08/10/24 13:06 [place] # (Auto) 0.3 x10E3/uL (0.0-0.8) 08/10/24 13:06 Eos # (Auto) 0.1 x10E3/uL (0.0-0.45) 08/10/24 13:06 Baso # (Auto) 0.0 x10E3/uL (0.0-0.2) 08/10/24 13:06 Monocyte Dist Width 23.64 % (0.00-20.00) H 08/10/24 13:06 PT 11.5 Seconds (9.0-12.9) 08/10/24 13:06 INR 1.0 08/10/24 13:06 APTT 30.0 Seconds (25.1-36.5) 08/10/24 13:06 PHA Creatinine Clear 71.10 08/10/24 13:06 Sodium 138 mmol/L (136-145) 08/10/24 13:06 Potassium 4.4 mmol/L (3.5-5.1) 08/10/24 13:06 Chloride 107 mmol/L (98-107) 08/10/24 13:06 Carbon Dioxide 25.8 mmol/L (21.0-31.0) 08/10/24 13:06 Anion Gap 9.6 mEq/L (6.0-15.0) 08/10/24 13:06 BUN 16 mg/dL (7-25) 08/10/24 13:06 Creatinine 0.89 mg/dL (0.60-1.20) 08/10/24 13:06 Est GFR (CKD-EPI) > 60.0 mL/Min 08/10/24 13:06 Glucose 97 mg/dL (70-100) 08/10/24 13:06 Calcium 8.8 mg/dL (8.6-10.3) 08/10/24 13:06 Total Bilirubin 0.7 mg/dl (0.3-1.0) 08/10/24 13:06 Direct Bilirubin 0.10 mg/dL (0.03-0.18) 08/10/24 13:06 Indirect Bilirubin 0.6 mg/dL 08/10/24 13:06 AST 22 U/L (13-39) 08/10/24 13:06 ALT 21 U/L (7-52) 08/10/24 13:06 Alkaline Phosphatase 66 U/L (34-104) 08/10/24 13:06 Total Creatine Kinase 51 U/L (30-223) 08/10/24 13:06 Troponin I High Sens 3.3 pg/mL (0.0-15.0) 08/10/24 13:06 B-Natriuretic Peptide 158.0 pg/mL (5-100) H 08/10/24 13:06 Total Protein 6.8 gm/dL (6.4-8.9) 08/10/24 13:06 Albumin 4.1 gm/dL (3.5-5.7) 08/10/24 13:06 Globulin 2.7 gm/dL 08/10/24 13:06 Albumin/Globulin Ratio 1.5 08/10/24 13:06 Lipase 12.0 U/L (11.0-82.0) 08/10/24 13:06 SARS-CoV-2 Rap RNA(RT-PCR) Positive (Negative) A 08/10/24 12:45 Microbiology Results Micro: Microbiology - Results from entire visit 08/10/24 12:45 Nasopharyngeal SARS-CoV-2, Influenza & RSV (PCR) - Final Assessment & Plan Assessment/Plan (1) Chest pain: (2) SARS-CoV-2 positive: Plan Atypical chest pain Hx of CAD with stents COVID positive -Initial troponin WNL, follow-up repeat troponin x2 -EKG on admission showed normal sinus rhythm with no obvious acute ischemic changes -In the ER was given morphine and multiple doses of nitro, as per report patientgot up to the bathroom and her heart rate went down to 30s, EKG done showed concerns for AV block type 2, EP oncall is being consulted in ER. as per input felt its likely due to nitrates and possibly vasovagal response.Patient recovered from this and back to normal rate with stable BP. Consult for EP placed. -Check HbA1C, Lipid panel, TSH -BNP 158 -Check Echocardiogram -Resume home meds -NG sublingual PRN as directed -Morphine for pain as directed as needed -Oxygen PRN to maintain sat >90% -Avoid NSAIDs except for aspirin -EP consult placed -Monitor on telemetry Home medications resumed Diet: regular DVT ppx: Lovenox Code status: Full Status: Observation Discussed with patient and at bedside. All questions answered. In agreement with the above plan Fartun Tarango MD Internal Medicine Hospitalist Attending Physician IP vs OBS Justification Based on differential dx, clinical care plan, and risk of adverse events, if untreated, in my clinical judgement this patient requires an acute care setting as: OBSERVATION because of an expectation of an under 2 midnight stay. Estimated length of stay (# of days): 2 Documented By: Fartun Tran MD 08/10/24 16 36 Signed By: <Electronically signed by Fartun Tran MD> 08/10/24 1833 [facility] Work Phone: 1(156) 759-784609-09-2024 Evaluation note* Diagnosis Onset Date Resolution Status Admit Date AV heart block resolvedSept2023 4:33pmChest painresolvedSeptember 2023 4:33pm Neurocardiogenic syncoperesolvedSept2023 4:[id number] positive resolvedSept2023 4:33pmSymptomatic bradycardiaresolvedSept2023 4:33pm [facility] Work Phone: 1(115) 570-111409-04-2024 History of Present illness Narrative* Maggie Walter, EUGENIE - 08/05/2024 9:45 AM EDT Images from the original note were not included. Adela Hopkins is a 64 y.o. female presents with chief complaint of Annual Exam HPI: HPI She did not have lab drawn prior to visit. Order reprinted , she will have done today. She brought paperwork to complete for insurance. She is overdue for colonoscopy. Last greater than [address] Cohen. She is following with Dr Benoit for bilateral lower extremity pain. EMG performed 07/23/2024. Follow up scheduled 08/12/2024. She has mole on lt abdomen that has changed in appearance, dry and crusty. Mole gets caught on clothing which has caused it to bleed. She does not follow with shop tailor. History of Present Illness The patient presents for an annual wellness visit. She reports a skin lesion that frequently gets caught on her toes, leading to irritation and itchiness. Additionally, she mentions the presence of several skin tags on her neck, which she is considering having removed. She has not previously consulted a shop tailor. She acknowledges being overdue for a colonoscopy and expresses a desire to schedule one before the end of the year. Her bowel movements are regular. She denies experiencing any chest pain or breathing difficulties. She had a dental check-up in either May or June 2024 and an eye examination in March 2024. She also underwent a mammogram. She plans to have a blood test immediately after this visit. She was informed of nerve damage in her legs following an EMG, but no further details were provided. She is scheduled to see Dr. Cabrera on 10/12/2024 for a follow-up. 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 I have reviewed and reconciled the history and medication list with the patient today. HISTORIES: PAST MEDICAL HISTORY: Past Medical History: Diagnosis Date CAD (coronary artery disease) (CMS/HCC) Disturbance of skin sensation Essential hypertension (CMS/HCC) History of hysterectomy 11/29/2021 Hyperlipemia (CMS/HCC) Hypothyroidism (CMS/HCC) Pain in limb Radiculopathy, lumbosacral region SURGICAL HISTORY: Past Surgical History: Procedure Laterality Date APPENDECTOMY CERVICAL FUSION SECTION, LOW TRANSVERSE CHOLECYSTECTOMY CORONARY ANGIOPLASTY WITH STENT PLACEMENT 2020 HYSTERECTOMY KNEE SURGERY Right knee scope SHOULDER SURGERY Left 2011 SOCIAL HISTORY: Social History Tobacco Use Smoking status: Former Current packs/day: 0.00 Types: Cigarettes Start date: 12/02/1971 Quit date: 12/02/1999 Years since quittin.6 Smokeless tobacco: Never Vaping Use Vaping status: Never Used Substance Use Topics Alcohol use: Yes Comment: 1 drink less than monthly. Caffeine: Coffee, 4-5 daily. Pop, 3 cans weekly Drug use: Never Depression: Not at risk (12/26/2023) PHQ-2 PHQ-2 Score: 0 FAMILY HISTORY: Family History Problem Relation Name Age of Onset Thyroid disease Mother Cancer Mother Heart disease Father Stroke Father Other (MRSA) Brother No Known Problems Maternal Grandmother Hypertension Other sibling Diabetes Other sibling Breast cancer Mother's Sister 69 MEDICATIONS: Current Outpatient Medications Medication Instructions albuterol HFA 90 mcg/act inhaler 2 puffs, Inhalation, 3 times daily PRN amitriptyline (ELAVIL) 25 mg, Oral, Nightly PRN atorvastatin (LIPITOR) 80 mg, Oral, Daily carvedilol (COREG) 3.125 mg, Oral, Every 12 hours citalopram (CELEXA) 40 mg, Oral, Daily clopidogrel (PLAVIX) 75 mg, Oral, Daily diclofenac sodium 3 % gel apply 2 grams Externally Four times a day prn gabapentin (Neurontin) 300 MG capsule TAKE 2 CAPSULES BY MOUTH EVERY MORNING AND TAKE TWO CAPSULES BY MOUTH EVERY NIGHT AT BEDTIME levothyroxine (SYNTHROID, LEVOXYL) 112 mcg, Oral, Every morning meclizine (ANTIVERT) 25 mg, Oral, 3 times daily PRN nitroglycerin (Nitrostat) 0.4 MG SL tablet as directed Sublingual sacubitril-valsartan (Entresto) 24-26 MG tablet 1 tablet, Oral, 2 times daily ALLERGIES: Allergies Allergen Reactions Ticagrelor Shortness of breath Cefdinir Other Reaction(s): facial tingling/ rash Metoclopramide Rash Other Reaction(s): Head Spinning / Hallucinations / Rash Penicillins Rash Other Reaction(s): Tongue Swelling / Rash Tramadol Itching Other Reaction(s): itching PHYSICAL EXAM: Visit Vitals BP 112/70 (BP Location: Left arm, Patient Position: Sitting) Pulse 71 Ht 5' 2 Wt 218 lb SpO2 97% BMI 39.87 kg/m OB Status Postmenopausal Smoking Status Former BSA 2.08 m BP Readings from Last 3 Encounters: 08/05/24 112/70 07/16/24 130/78 07/02/24 112/64 Wt Readings from Last 3 Encounters: 08/05/24 218 lb 07/16/24 218 lb 07/02/24 216 lb Physical Exam HENT: Mouth/Throat: Mouth: Mucous membranes are moist. Neck: Thyroid: No thyroid mass or thyromegaly. Vascular: No carotid bruit. Cardiovascular: Rate and Rhythm: Normal rate and regular rhythm. Heart sounds: No murmur heard. No friction rub. No gallop. Pulmonary: Effort: Pulmonary effort is normal. Breath sounds: Normal breath sounds. Abdominal: General: Bowel sounds are normal. Palpations: Abdomen is soft. Tenderness: There is no abdominal tenderness. Musculoskeletal: Right lower leg: No edema. Left lower leg: No edema. Lymphadenopathy: Cervical: No cervical adenopathy. Skin: General: Skin is warm and dry. Neurological: Mental Status: She is alert and oriented to person, place, and time. Psychiatric: Mood and Affect: Mood normal. Thought Content: Thought content normal. Results ASSESSMENT AND PLAN: Assessment & Plan 1. Annual physical exam Doing well. Discussed eating healthy and exercising regularly. No major issues. Exam is unremarkable. She is due for Colonoscopy. Call if any health issues arise. Otherwise, reassess again in one year. 2. Essential hypertension (CMS/HCC) Doing well. Blood pressures have been good. Continue lifestyle modifications. Continue current medication. Call if any problems or if home blood pressures rising. 3. Stage 3a chronic kidney disease (HCC) (CMS/HCC) She will get labs done We will continue the current medications and continue to modify all risk factors as we are able to do so. Follow-up labs again at next office visit. 4. Chronic systolic congestive heart failure (CMS/HCC) Denies problems with SOB, MORRIS, or increased edema with weight gain. Continue current medication regimen. Eat a heart healthy diet low in sodium. Monitor weights regularly and call if increased more than 5 pounds. Call immediately if any problems or concerns. 5. Coronary artery disease involving [place] coronary artery of [place] heart without angina pectoris(CMS/HCC) Doing well. Denies any anginal symptoms. Continue aggressive risk factor modification. Continue current medications. Call if any problems. 6. Moderate major depression (CMS/HCC) Stable. Continue current regimen. 7. Pure hypercholesterolemia (CMS/HCC) Continue current medication, eat a healthy diet, and exercise regularly. 8. Changing skin lesion The skin lesion appears to be an actinic keratosis, which is not cancerous but may cause discomfortdue to its location. Referral to a shop tailor will be made for further evaluation and potential removal of the skin lesion. The lesion is changing and sometimes bleeds, gets caught on toes, and becomes itchy. Refer to Dermatology. - Ambulatory referral to Dermatology; Future 9. Colon cancer screening She is overdue. - Ambulatory referral to Gastroenterology; Future 10. Weakness of both lower extremities Check labs today since she is getting other lab done. - Vitamin D 25 hydroxy Total - Vitamin B12 documented in this encounterCameron Regional Medical [id number] History of Present illness Narrative* Vimal Baeza, PT - 07/30/2024 2:00 PM EDT Physical Therapy Evaluation Visit Patient Name: Adela Hopkins Today's Date: 07/30/2024 Encounter Diagnoses Name Primary? Pain in both lower extremities Paresthesia Visit number: 1 Timed Code Treatment Minutes: 60 minutes Total Treatment Time: 60 minutes Time In: 1400 Time Out: 1500 History: Pt. Presents to PT with c/c bilateral LE weakness/poor balance/decreased coordination which started a year ago but in the last 3 months she has noticed a significant decline in her functional mobility. Pt. Works part-time at [employer]. Pt. Had EMG in bilateral LE on 07/23/24, results in nerve damage but will need more testing. Pt. Reports of increased difficulty with stairs and uneven surfaces. Pt. Reports she walks drunk feeling but she is not drunk. Precautions: universal Subjective Pain: 4/10 low back, 7-8/10 legs (knee to feet worst) Objective: PT Evaluation LE ROM: WFL in all planes Flexibility: mild bilateral LE muscle tightness Strength: left LE 4-/5, right LE 4-/5 Functional mobility: mild use of UE assist with sit to stand Balance: fair dynamic standing balance Gait: independent but at slow pace Treatment: PT Evaluation (30 minutes) Education: HEP education with demonstration, Educated on Eval Findings and POC Manual Therapy: Passive ROM, Joint mobilization, Soft Tissue Mobilization, Myofascial Release, Muscle Energy Technique, Neural Mobilization, Myofascial Cupping, Dry Needling, IASTM, and Scar mobilization Therapeutic Exercise: (15 minutes) exercises in grid; Strength, Endurance, Flexibility, ROM, HEP, Neural Mobilization, Power, and Core Stability Therapeutic Activity: Exercises to improve dynamic activities, functional tasks, functional mobility to return to prior activity level Gait Training: Neuromuscular re-education: Balance Training, Muscle Facilitation, Dynamic Stability, Core Stabilization, and Blood Flow Restriction Training (BFRT) Modalities: Heat, Ice, Electrical Stimulation, Ultrasound, Cervical Mechanical Traction, Lumbar Mechanical Traction, Iontophoresis, and Fluidotherapy Assessment: Pt. Has participated in 1 PT session with start of POC on 07/30/24 to help improve LE strength and balance. Pt. Will benefit from skilled PT services. Pt demonstrate poor tolerance to exercises. Outcome Measure: in chart Rehab prognosis: good Short Term Goal: To be met in 2 weeks Goal 1: Pt to be instructed in home exercise program. Child Welfare Consultant Goals: To be met in 10 weeks Goal 1: Pt to report independence and compliance with home program. Goal 2: Pt. Will report of 2/10 or less back/leg pain while performing work tasks to help improve her quality of life. Goal 3: Pt. Will demonstrate normal bilateral LE muscle flexibility to help decrease pain and improve her functional mobility. Goal 4: Pt. Will demonstrate 5/5 right LE strength grossly in all planes to allow her to walk/standfor long periods of time to help improve her functional mobility. Goal 5: Pt. Will demonstrate 5/5 left LE strength grossly in all planes to allow her to walk/stand for long periods of time to help improve her functional mobility. Goal 6: Pt. Will demonstrate good dynamic standing to help improve her functional mobility. Pt will benefit from skilled PT for 2-3x/week from 07/30/2024 to 10/08/2024 to address the above impairments. I hereby deem this POC medically necessary. Please sign below. Date: documented [facility] this [facility]08-22-2024 History of Present illness Narrative* MARIANELA Duff - 07/23/2024 10:00 AM EDT Images from the original note were not included. Reason for Appointment: EMG Patient: Adela Hopkins : 1960 EMG Computer: [employer] Referring Physician: Dr. Jazmine Benoit EMG: YOJANA yeast tender: David Gonzalez RT(R) Office Location: [place] Reason for EMG: c/o low back pain that radiates down bilateral legs L>R, numbness/tingling in bilateral feet/legs. No hx of DM. Taking Plavix. Comments: Procedure was explained to the patient who expressed understanding. Patient appeared to have tolerated the test well despite some discomfort due to the nature of the test. documented in this encounterCameron Regional Medical [id number] History of Present illness Narrative* James Mejia, DO - 01/23/2024 9:50 AM EST Subjective Adela Hopkins is a 63 y.o. female Chief Complaint Follow-up 63-year-old female returns for follow-up she is doing well other than chronic exertional dyspnea. She was recently in the emergency room 1 week ago for chest pain syndrome all laboratories, ECGs etc.are reviewed, she was discharged without evidence of acute coronary syndrome She sustained inferior PA in April 2021 with primary PCI of the RCA with provisional angioplasty of the PLV branch subsequent PCI of the LAD in August 2021, she had a ischemic cardiomyopathy now with normalized left ventricular function and no heart failure. She has underlying obesity, hyperlipidemia, former smoker. At the time we were did review her echo from 2020 revealed normalized left ventricular function with ejection fraction estimated to be 55% with moderate mitral regurgitation She is now on Entresto and carvedilol with symptomatic fatigue and mild hypotension but tolerating it reasonably well with the above-mentioned chronic dyspnea. Recommendations, continue current therapies we did review her most recent laboratories from the ER all of which are intact and normal. Obtain a lipid panel, will also obtain an echocardiogram to reassess her mitral valve anatomy and physiology. Will follow-up in 6 months with nurse practitioner. Review of Systems Constitutional: Positive for malaise/fatigue. Cardiovascular: Positive for chest pain. Neurological: Positive for dizziness. All other systems reviewed and are negative. Vitals: 01/23/24 1009 BP: 92/68 BP Location: Left arm Patient Position: Sitting Pulse: 72 Weight: 99.8 kg (220 lb) Height: 1.575 m (5' 2 ) Objective Physical Exam Constitutional: Appearance: Normal appearance. She is normal weight. HENT: Nose: Nose normal. Neck: Vascular: No carotid bruit. Cardiovascular: Rate and Rhythm: Normal rate. Pulses: Normal pulses. Heart sounds: Normal heart sounds. Pulmonary: Effort: Pulmonary effort is normal. Abdominal: General: Bowel sounds are normal. Palpations: Abdomen is soft. Genitourinary: Rectum: Normal. Musculoskeletal: General: Normal range of motion. Cervical back: Normal range of motion. Right lower leg: No edema. Left lower leg: No edema. Skin: General: Skin is warm and dry. Neurological: General: No focal deficit present. Mental Status: She is alert. Psychiatric: Mood and Affect: Mood normal. Behavior: Behavior normal. Thought Content: Thought content normal. Judgment: Judgment normal. Allergies Lisinopril, Metoclopramide, Penicillins, and Tramadol Current Medications Current Outpatient Medications: albuterol 90 mcg/actuation inhaler, Inhale 2 puffs. As directed., Disp: , Rfl: atorvastatin (Lipitor) 80 mg tablet, Take 1 tablet (80 mg) by mouth once daily at bedtime., Disp: ,Rfl: carvedilol (Coreg) 3.125 mg tablet, Take 1 tablet (3.125 mg) by mouth 2 times a day with meals., Disp: , Rfl: citalopram (CeleXA) 20 mg tablet, Take 1 tablet (20 mg) by mouth once daily., Disp: , Rfl: clopidogrel (Plavix) 75 mg tablet, TAKE ONE TABLET BY MOUTH DAILY, Disp: 90 tablet, Rfl: 3 gabapentin (Neurontin) 300 mg capsule, Take 1 capsule (300 mg) by mouth 2 times a day., Disp: , Rfl: levothyroxine (Synthroid, Levoxyl) 112 mcg tablet, Take 1 tablet (112 mcg) by mouth once daily in the morning. Take before meals., Disp: , Rfl: nitroglycerin (Nitrostat) 0.4 mg SL tablet, Place 1 tablet (0.4 mg) under the tongue every 5 minutes if needed for chest pain (Report to the ER or call 911 after the third dose.)., Disp: , Rfl: sacubitriL-valsartan (Entresto) 24-26 mg tablet, Take 1 tablet by mouth 2 times a day., Disp: , Rfl: Assessment/Plan 1. Coronary artery disease, unspecified vessel or lesion type, unspecified whether angina present, unspecified whether [place] or transplanted heart 2. History of PTCA 3. History of ST elevation myocardial infarction (STEMI) 4. Ischemic cardiomyopathy 5. Hypertension, unspecified type 6. Mixed hyperlipidemia 7. Other fatigue 8. Former smoker 9. Difficulty breathing Scribe Attestation By signing my name below, Myrna Covington LPN, Scribe attest that this documentation has been prepared under the direction and in the presence of Loretta Roberto, DO. Provider Attestation - Scribe documentation All medical record entries made by the Scribe were at my direction and personally dictated by me. Ihave reviewed the chart and agree that the record accurately reflects my personal performance of the history, physical exam, discussion and plan. [facility] Work Phone: 1(273) 444-285202-22-2024 Instructions* Patient Instructions* Myrna Doyle LPN - 01/23/2024 9:50 AM EST Please bring all medicines, vitamins, and herbal supplements with you when you come to the office. Prescriptions will not be filled unless you are compliant with your follow up appointments or have a follow up appointment scheduled as per instruction of your physician. Refills should be requested at the time of your visit. BMI was above normal measurement. Current weight: 99.8 kg (220 lb) Weight change since last visit (-) denotes wt loss 0 lbs Weight loss needed to achieve BMI 25: 83.6 Lbs Weight loss needed to achieve BMI 30: 56.3 Lbs Provided instructions on dietary changes Provided instructions on exercise. [facility] Work Phone: 1(207) 533-405507-13-2022 Evaluation note* Encounter Date Diagnosis Assessment Notes Treatment Notes Treatment Clinical Notes Jun, Screening for colon cancer (ICD- 10 - Z12.11) [facility] Other 06-27-2022 Evaluation note* Encounter Date Diagnosis Assessment Notes Treatment Notes Treatment Clinical Notes May, Rash and nonspecific skin erupti on (ICD-10 - R21) Discussed diagnosis with patient in detail. Area marked today in office. Will send in rx of antibiotic for coverage based on physical exam. Instructed patient to take antibiotic as directed, completeentire course even if feeling better, take with food and plenty of water. Instructed close monitoring of wound. Wound care as discussed. Avoid picking at scab or scrubbing, clean by letting warm soapy water run over. May leave open to air. Avoid use of ointments as it may prolong healing process. May use rx of Cetirizine to help with histamine reaction. Follow up with PCP in the next 2-3 days. Immediate eval by ER if fever, chills, body aches, increase in swelling or redness, red streaking from wound, SOB, difficulty breathing, chest pain, or any new or concerning symptoms. Patient verbalizes understanding and is agreeable to treatment plan May,therRash home care material was printed, Rash home care material was printed [facility] Other 10-28-2021 Evaluation note* Encounter Date Diagnosis Assessment Notes Treatment Notes Treatment Clinical Notes Sep, Contact with and (nowak spected) exposure to other viral communicable diseases (ICD-10 - Z20.828) Today test was performed in office. Results are currently negative. That does not mean that you will not develop COVID or do not currently have a low viral count of COVID. The rapid test works best if symptoms have been over 72 hours and the results can vary if you are asymptomatic There is a higher chance of false negative results to occur if testing is performed too soon. It is recommended thateven if results are negative and you have been exposed to someone that has COVID that you follow current CDC recommendations. These can be found at CDC.GOV. Follow up with primary care provider if symptoms persist or do not improve Sep,ilateral acute otitis media (ICD-10 - H66.93) Sep,Other Additional time spent conducting pre-visit phone call, screening for symptoms, instructions on social distancing, application and removal of PPE, and cleaning of examination room, equipment and supplies was preformed. Patient education given for testing methodology and results. Patient care instructions given in writting by [facility] document. [facility] Other 10-15-2021 Evaluation note* Encounter Date Diagnosis Assessment Notes Treatment Notes Treatment Clinical Notes Sep, Poison ender (ICD-10 - L23.7) Drink plenty fluids, get plenty of rest. Take the prednisone as prescribed until gone. Continue home medications as prescribed. Continue to use calamine lotion and Benadryl. Follow-up with your family physician if no improvement in 2 to 3 days [facility] Other Discharge summary Author Siobhan Whitfield [facility] August 11, 2024 1:25pmNote Date/TimeSept2023 1:25pm[address] [address] Discharge Summary Signed Patient: Adela Hopkins V MR#: [id number] : 1960 Acct:[id number] Age/Sex: 64 / F Adm Date: 4 Loc: Room: [address] [place] [address]: Siobhan Whitfield MD Copies to: MD Robert Sorensen MD~ Providers Date of Discharge: 08/11/24 Discharging Provider: Siobhan Whitfield Primary Care Provider: Robert Newell Consults: 08/10/24 18:31 Consult to Electrophysiology Routine Comment: Consulting Provider: Dr. Desiree Greenberg Reason For Exam: AV block in ER Has Provider Been Notified: Yes Date of Notification: 08/11/24 Time of Notification: 07:43 Discharge Diagnosis (1) Neurocardiogenic syncope: Final Diagnosis Final Discharge Diagnosis: As above Summary Hospital Course Hospital course: Patient is a pleasant 61-year-old female with past medical history of coronary disease status post PCI with last intervention in 08/22 with PCI to OM circumflex. Patient presented to the emergency room with complaint of chest pain and was given nitroglycerin in the emergency room. She did test positive for COVID and has been having symptoms of cough. While in the emergency room patient got up to go to bedside commode and while standing she did not feel welland appeared pale. On monitor noted to have heart rate dropping to 30s. ER discussed case with EP and she was kept under observation for monitoring. No event monitored on telemetry with no further bradycardia or heart block. Patient remained on room air with no signs of respiratory distress. She denies having further chest pain or shortness of breath. He was consulted with impression of most likely neurocardiogenic syncope triggered bysublingual nitroglycerin at home isosorbide. Recommended to discontinue isosorbide mononitrate and d ischarged on 30 days event monitor. Patient is also on carvedilol which will be placed on hold. Sheis advised to follow-up with her environmental science program director and return to the emergency room if develops similar symptoms, dizziness or having syncopal episode. Condition Condition at Discharge: Stable Status at Discharge Functional status at discharge: independent ambulation Overall status at discharge: patient is back to baseline Time Spent with Patient Time spent providing/coordinating discharge services (# min): 20 Discharge Plan Discharge Plan Patient Disposition: Home Activity: No Activity Restriction Diet: Low-Sodium and Low-Cholesterol Instructions: Know your Meds Prescriptions: Continued citalopram [Celexa] 20 mg Tablet 20 mg PO DAILY levothyroxine 75 mcg Capsule 75 mcg PO DAILY trazodone 50 mg Tablet 50 mg PO QHS PRN (Reason: Insomnia) clopidogrel 75 mg Tablet 75 mg PO DAILY pantoprazole [Protonix] 20 mg tablet,delayed release (DR/EC) 40 mg PO DIRECTED PRN (Reason: Acid Reflux) ondansetron 4 mg tablet,disintegrating 4 mg PO Q8HR PRN (Reason: nausea and vomiting) 3 Days Qty: 9 0RF gabapentin 300 mg capsule 300 mg PO BID Entresto 24-26 mg tablet 1 tab PO BID benzonatate 100 mg capsule 100 mg PO TID PRN (Reason: cough) Qty: 15 0RF albuterol sulfate 90 mcg/actuation HFA aerosol inhaler 2 puff INHALATION Q6H PRN (Reason: Shortness Of Breath) Patient Comments: INHALE 2 PUFFS BY MOUTH EVERY 6 HOURS atorvastatin 80 mg Tablet 80 mg PO QPM 30 Days Qty: 30 12RF nitroglycerin 0.4 mg Tablet, Sublingual 0.4 mg sublingual Q5M PRN (Reason: Chest Pain) 30 Days Qty: 25 3RF Held isosorbide mononitrate 30 mg Tablet Extended Release 24 Hr 30 mg PO DAILY Hold Instructions: Until seen by your environmental science program director. carvedilol 6.25 mg Tablet 6.25 mg PO BID.WITH.MEALS 30 Days Qty: 60 12RF Hold Instructions: Until seen by your environmental science program director. Discontinued losartan 25 mg Tablet 25 mg PO DAILY Exam Physical Exam Vital Signs: Temp Pulse Resp BP Pulse Ox O2 Del Method O2 Flow Rate 98.4 F 77 16 131/74 94 L Room Air 1 08/11/24 11:07 08/11/24 11:07 08/11/24 11:08/11/24 11:07 08/11/24 11:07 08/11/24 11:07 08/10/24 18:26 Const Orientation: alert, awake and oriented x3 Resp Effort & Inspection: normal respiratory effort and able to speak in complete sentences Auscultation: no rales, no rhonchi and no wheezes Cardio Rate: regular rate Rhythm: regular rhythm Heart Sounds: S1 normal and S2 normal GI Palpation: soft, not firm, no guarding and nontender Neuro General: patient alert, patient awake, patient oriented x3, moves all extremities, no focal motor deficits and CN's II-XI intact bilaterally Diagnostic Studies Completed and Pending Studies Labs on day of discharge: 08/11/24 06:07: Corrected WBC 6.8, Uncorrected WBC Count 6.8, RBC 3.37 L, Hgb 10.5 L, Hct 31.0 L, MCV 91.8, MCH 31.0, MCHC 33.8, RDW 15.0, Plt Count 193, MPV 8.8, Neut % (Auto) 71.7, Lymph % (Auto) 18.8, [place] % (Auto) 9.1, Eos % (Auto) 0.1, Baso % (Auto) 0.3, Nucleat RBC Rel Count 0.2, Neut # (Auto) 4.9, Lymph # (Auto) 1.3, [place] # (Auto) 0.6, Eos # (Auto) 0.0, Baso # (Auto) 0.0, PHA Creatinine Clear 65.91, Sodium 136, Potassium 3.9, Chloride 104, Carbon Dioxide 25.1, Anion Gap 10.8, BUN 17, Creatinine 0.98, Est GFR (CKD-EPI) > 60.0, Glucose 91, Estimat Average Glucose 117, Hemoglobin A1c 5.7 H, Calcium 8.4 L, Total Bilirubin 0.4, AST 20, ALT 18, Alkaline Phosphatase 57, Troponin I High Sens 4.6, Total Protein 6.3 L, Albumin 3.7, Globulin 2.6, Albumin/Globulin Ratio 1.4, Triglycerides 89, Cholesterol 141, LDL Cholesterol, Calc 73, VLDL Cholesterol 17, HDL Cholesterol 50, Cholesterol/HDL Ratio 2.8, TSH 3rd Generation 0.39 L 08/10/24 20:06: Troponin I High Sens 2.9 08/10/24 13:06: PT 11.5, INR 1.0, APTT 30.0, PHA Creatinine Clear 71.10, Sodium 138, Potassium 4.4,Chloride 107, Carbon Dioxide 25.8, Anion Gap 9.6, BUN 16, Creatinine 0.89, Est GFR (CKD-EPI) > 60.0, Glucose 97, Calcium 8.8, Total Bilirubin 0.7, Direct Bilirubin 0.10, Indirect Bilirubin 0.6, AST 22, ALT 21, Alkaline Phosphatase 66, Total Creatine Kinase 51, Troponin I High Sens 3.3, B-Natriuretic Peptide 158.0 H, Total Protein 6.8, Albumin 4.1, Globulin 2.7, Albumin/Globulin Ratio 1.5, Lipase 12.0 08/10/24 12:45: SARS-CoV-2 Rap RNA(RT-PCR) Positive A Documented By: Siobhan Whitfield MD 08/11/24 1319 Signed By: <Electronically signed by Siobhan Whitfield MD> 08/11/24 1325 [facility] Work Phone: Evaluation noteNo [employer] Only [place] Other Evaluation noteNo assessment information available [facility] Work Phone: evaluation note* Diagnosis Coronary artery disease, unspecified vessel or lesion type, unspecified whether angina present, unspecified whether [place] or transplanted heart History of PTCA Postsurgical percutaneous transluminal coronary angioplasty status History of ST elevation myocardial infarction (STEMI) Ischemic cardiomyopathy Other specified forms of chronic ischemic heart disease Hypertension, unspecified type Mixed hyperlipidemia Other fatigue Former smoker Personal history of tobacco use, presenting hazards to health Difficulty breathing Other dyspnea and respiratory abnormality documented in this encounter [facility] Work Phone: Evaluation note* Diagnosis Coronary artery disease, unspecified vessel or lesion type, unspecified whether angina present, unspecified whether [place] or transplanted heart History of PTCA Postsurgical percutaneous transluminal coronary angioplasty status Ischemic cardiomyopathy Other specified forms of chronic ischemic heart disease Hypertension, unspecified type Other fatigue Difficulty breathing Other dyspnea and respiratory abnormality documented in this encounter [facility] Work Phone: Evaluation note* Diagnosis Onset Date Resolution Status AV heart block acuteChest [id number]-2 positiveacuteSymptomatic bradycardiaacute [facility] Work Phone: Evaluation note* Diagnosis Onset Date Resolution Status AV heart block acuteChest painacuteNeurocardiogenic [id number] positiveacute Symptomatic bradycardiaacute [facility] Work Phone: Evaluation note* Diagnosis Pain in both lower extremities- Primary Paresthesia Disturbance of skin sensation [facility] Diagnosis Pain in both lower extremities- Primary Paresthesia Disturbance of skin sensation [facility] Diagnosis Pain in both lower extremities- Primary Paresthesia Disturbance of skin sensation [facility]* Diagnosis Inflamed seborrheic keratosis Skin tag Unspecified hypertrophic and atrophic condition of skin [facility]* Diagnosis Degeneration of intervertebral disc of lumbar region with discogenic back pain and lower extremity pain- Primary Polyneuropathy Unspecified hereditary and idiopathic peripheral neuropathy Long-term use of high-risk medication [facility] Diagnosis Gait instability- Primary Abnormality of gait Polyneuropathy Unspecified hereditary and idiopathic peripheral neuropathy Multilevel degenerative disc disease [facility]* Diagnosis Dysuria- Primary Acute cystitis with hematuria Acquired hypothyroidism ([facility]/HCC) Unspecified hypothyroidism Moderate major depression (CMS/HCC) Major depressive disorder, single episode, moderate Coronary artery disease involving [place] coronary artery of [place] heart without angina pectoris (CMS/HCC) [facility]* Diagnosis Chest pain, unspecified type- Primary Syncope, unspecified syncope type Bradycardia Other specified cardiac dysrhythmias Acute non-recurrent frontal sinusitis Polyneuropathy Unspecified hereditary and idiopathic peripheral neuropathy [facility]* Diagnosis Pain in both lower extremities Paresthesia Disturbance of skin sensation [facility]* Diagnosis Annual physical exam- Primary Routine general medical examination at a health care facility Essential hypertension (CMS/HCC) Unspecified essential hypertension Stage 3a chronic kidney disease (HCC) (CMS/HCC) Chronic systolic congestive heart failure (CMS/HCC) Coronary artery disease involving [place] coronary artery of [place] heart without angina pectoris (CMS/HCC) Moderate major depression (CMS/HCC) Major depressive disorder, single episode, moderate Pure hypercholesterolemia (CMS/HCC) Pure hypercholesterolemia Changing skin lesion Unspecified disorder of skin and subcutaneous tissue Colon cancer screening Special screening for malignant neoplasms, colon Weakness of both lower extremities documented in this encounter [facility]* Diagnosis Witnessed episode of apnea- Primary Essential hypertension ([facility]/HCC) Unspecified essential hypertension Mild persistent asthmatic bronchitis without complication ([facility]) Class 2 severe obesity due to excess calories with serious comorbidity and body mass index (BMI) of39.0 to 39.9 in adult ([facility]) Upper respiratory tract infection, unspecified type Mild intermittent asthma with acute exacerbation ([facility]) Coronary artery disease involving [place] coronary artery of [place] heart without angina pectoris ([facility]) documented in this encounter [facility]* Diagnosis Gait instability- Primary Abnormality of gait Weakness Other malaise and fatigue Multilevel degenerative disc disease Polyneuropathy Unspecified hereditary and idiopathic peripheral neuropathy documented in this encounter [facility]* Diagnosis Ischemic cardiomyopathy- Primary Other specified forms of chronic ischemic heart disease Coronary artery disease, unspecified vessel or lesion type, unspecified whether angina present, unspecified whether [place] or transplanted heart Primary hypertension Unspecified essential hypertension Mixed hyperlipidemia BMI 40.0-44.9, adult (Multi) Nonrheumatic mitral valve regurgitation Coronary artery disease, unspecified vessel or lesion type, unspecified whether angina present, unspecified whether [place] or transplanted heart History of PTCA Postsurgical percutaneous transluminal coronary angioplasty status History of ST elevation myocardial infarction (STEMI) Ischemic cardiomyopathy Other specified forms of chronic ischemic heart disease Primary hypertension Unspecified essential hypertension Mixed hyperlipidemia Nonrheumatic mitral valve regurgitation Atypical chest pain Other chest pain Former smoker Personal history of tobacco use, presenting hazards to health BMI 39.0-39.9,adult documented in this encounter [facility] Work Phone: Evaluation note* Diagnosis Onset Date Resolution Status Admit Date Lumbar radiculopathy acuteFebruary 2024 10:47amLumbosacral spondylosisacuteFebruary 2024 10:47amNeck painacuteFebruary 2024 10:47amOther chronic painacuteFebruary 2024 10:47amSacroiliitisacuteFebruary 2024 10:47am [facility] Work Phone: Evaluation note* Diagnosis Left shoulder pain, unspecified chronicity Chronic left shoulder pain Pain in joint, shoulder region documented in this encounter [facility]* Diagnosis Ischemic cardiomyopathy- Primary Other specified forms of chronic ischemic heart disease Coronary artery disease, unspecified vessel or lesion type, unspecified whether angina present, unspecified whether [place] or transplanted heart Primary hypertension Unspecified essential hypertension Mixed hyperlipidemia BMI 40.0-44.9, adult (Multi) Nonrheumatic mitral valve regurgitation Coronary artery disease, unspecified vessel or lesion type, unspecified whether angina present, unspecified whether [place] or transplanted heart History of PTCA Postsurgical percutaneous transluminal coronary angioplasty status History of ST elevation myocardial infarction (STEMI) Ischemic cardiomyopathy Other specified forms of chronic ischemic heart disease Primary hypertension Unspecified essential hypertension Nonrheumatic mitral valve regurgitation documented in this encounter [facility] Work Phone: Evaluation note* Diagnosis Pre-op examination- Primary documented in this encounter [facility]* Diagnosis Internal derangement of left shoulder- Primary Post-operative pain Other acute postoperative pain documented in this encounter [facility]* Diagnosis S/P arthroscopy of left shoulder- Primary documented in this encounter [facility]* Diagnosis S/P arthroscopy of left shoulder- Primary documented in this encounter [facility]* Diagnosis Acute left-sided low back pain with bilateral sciatica- Primary Dysuria Coronary artery disease involving [place] coronary artery of [place] heart without angina pectoris documented in this encounter [facility] note* Diagnosis S/P arthroscopy of left shoulder- Primary documented in this encounter [facility]* Diagnosis Acute pain of left shoulder- Primary S/P arthroscopy of left shoulder documented in this encounter [facility] HealthcareHistory general Narrative - Reported* Type Description Date Medical History hypothyroid Medical Historyh/o of asthma in winterMedical HistoryPneumoniaMedical History chronic painMedical Historyspinal stenosisMedical HistorycataractsMedical HistoryHeart Attack [id number] History3 Heart StentsSurgical Historytotal hystSurgical HistorygallbladderSurgical HistoryappendixSurgical Historyheart cathSurgical Historytubal ligationSurgical Historyc sectionSurgical History wisdom teethSurgical HistorytonsilsSurgical Historyneck [id number] HistoryctsSurgical Historyknee scopeSurgical Historyshoulder surgerySurgical Historyheart catheterizationSurgical HistoryUlnar Nerve-Tor Braunurgical Historybilateral cataract koeavec25/21Surgical Historynerve cauterization--neck 02/19Surgical HistoryHeart Surgery/ 3 [id number] HistoryHysterectomy Surgical HistoryNeck SurgeryHospitalization HistorySee aboveHospitalization [id number]/2016Hospitalization Chetwufglshqjhcf19/25/17 [facility] Other History of Present illness Narrative* The patient states she has been generally doing well since the last visit. Comorbid Illnesses: cardiac failure, hypertension and hyperlipidemia. * Symptoms: denies chest pain at rest, denies exertional chest pain, improved dyspnea, stable fatigue, stable exercise intolerance, denies palpitations, denies edema, denies orthopnea, denies dizzinessand denies orthostatic dizziness. * Disease Monitoring: [facility] [employer] Work Phone: History of Present illness Narrative* The patient states she has been generally doing well since the last visit. Comorbid Illnesses: cardiac failure, hypertension and hyperlipidemia. * Symptoms: denies chest pain at rest, denies exertional chest pain, improved dyspnea, stable fatigue, stable exercise intolerance, denies palpitations, denies edema, denies orthopnea, denies dizzinessand denies orthostatic dizziness. * Disease Monitoring: [facility] [employer] Work Phone: History of Present illness Narrative* The patient presents with ischemic heart failure. The patient's last LV ejection fraction was 35%. The patient is NYHA functional Class II. This is stage C heart failure. * Symptoms: denies lower extremity edema, resolved dyspnea on exertion, stable fatigue, stable exercise intolerance, denies orthopnea and denies paroxysmal nocturnal dyspnea. [facility] Work Phone: History of Present illness Narrative* The patient states she has been generally doing well since the last visit. Comorbid Illnesses: hypertension and hyperlipidemia. * Symptoms: denies chest pain at rest, denies exertional chest pain, denies dyspnea, stable fatigue, stable exercise intolerance, denies palpitations, denies edema, denies orthopnea, denies dizziness and denies orthostatic dizziness. * Associated symptoms: no syncope. * Her symptoms do not limit her activities. * Disease Monitoring: The patient has had a 10 pounds weight gain. * Medications: the patient is adherent with her medication regimen. She denies medication side effects. [facility]: History of Present illness Narrative* The patient states she has been generally doing well since the last visit. Comorbid Illnesses: hypertension and hyperlipidemia. * Symptoms: denies chest pain at rest, denies exertional chest pain, denies dyspnea, stable fatigue, stable exercise intolerance, denies palpitations, denies edema, denies orthopnea, denies dizziness and denies orthostatic dizziness. * Associated symptoms: no syncope. * Her symptoms do not limit her activities. * Disease Monitoring: The patient has had a 10 pounds weight gain. * Medications: the patient is adherent with her medication regimen. She denies medication side effects. [facility] 600 DO Work Phone: History of Present illness Narrative* The patient states she has been generally doing well since the last visit. Comorbid Illnesses: hypertension and hyperlipidemia. * Symptoms: denies chest pain at rest, denies exertional chest pain, stable dyspnea, stable fatigue, denies exercise intolerance, denies palpitations, denies edema, denies orthopnea, denies dizziness and denies orthostatic dizziness. * Associated symptoms: no syncope. * Her symptoms do not limit her activities. * Disease Monitoring: The patient has had a stable weight. * Medications: the patient is adherent with her medication regimen. She denies medication side effects. [facility] Work [facility]: Hospital Discharge instructions Additional Instructions Flonase daily may be beneficial Tessalon Perles to suppress cough Good handwashing Zyrtec or Claritin daily Zofran for nausea vomiting Follow-up with your PCP call Dr. Newell office tomorrow as we discussed for follow-up appointment Humidifier may be beneficial Tylenol if needed for any pain Bananas, rice, applesauce, toast to help form your stoolSumma Health Ctr Work Phone: Hospital Discharge instructions Additional Instructions DISCHARGE INSTRUCTIONS FOR COLONOSCOPY WHAT TO EXPECT: - You may feel full, gassy or cramping after your procedure. In some cases, this may be from a few hours to a day. Walking may help relieve the discomfort. - If you have polyp(s) removed you may note some minor bloody discharge after your first bowel movements. - You should begin to recover from anesthesia within 1 hour of the procedure, however may feel groggy for the next 24 hours. DO's AND DON'Ts: - Call your doctor right away if you have a hard abdomen, severe pain, are passing lots of bright red blood or clots. - Call your doctor if you develop any rashes, hives or difficulty breathing. - Let your doctor know if you have not had a bowel movement by 3 days after your procedure. - If you take 81 mg aspirin for your heart it is safe to resume this medication. - If you take other blood thinner medications your doctor will instruct you when these can safely be resumed. - Do NOT drive for 24 hours. - Do NOT operate machinery such as power tools, lawn mowers, snow blowers, sewing machines, etc. for 24 hours. - Avoid alcoholic beverages and drugs for allergies, nerves, or sleep. - Do NOT stay alone. Do NOT leave your child unattended. - Do NOT make important personal or business decisions or sign any legal documents. - Eat solid foods and drink liquids in smaller amounts than usual until normal appetite returns. If you should experience an upset stomach, liquids high in sugar content (soda, Everette-Aid, non-acid juices) are recommended. - You can resume normal activities tomorrow. FOLLOW UP & RECOMMENDATIONS: - Follow-up with the GI office as needed. - Notify the doctor if you have any problems. - Follow up with PCP. - Office number [phone].[facility] Work Phone: Reason for referral (narrative)* Consultation (Routine) - Pending ReviewSpecialtyDiagnoses / ProceduresReferred By Contact Referred To ContactGastroenterology Diagnoses Colon cancer screening Procedures GA OFFICE/OUTPATIENT NEW HIGH MDM 60 MINUTES Maggie Walter NP [address] [place] [address] Referral IDStatusReasonStart DateExpiration DateVisits RequestedVisits [id number] Review Consult and Treat * Consultation (Routine) - Pending ReviewSpecialtyDiagnoses / ProceduresReferred By ContactReferred To ContactDermatology Diagnoses Changing skin lesion Procedures GA OFFICE/OUTPATIENT NEW HIGH MDM 60 MINUTES Maggie Walter NP [address] [place] [address] Lora Morillo PA [address] [place] [address] Referral IDStatusReasonStart DateExpiration DateVisits RequestedVisits [id number] Review Consult and Treat [facility] HealthcareRe[facility] for referral (narrative)No reason for referral information availableSumma Health Ctr Work Phone: Reason for visit Narrative* Consultation (Routine) - AuthorizedSpecialtyDiagnoses / ProceduresReferred By ContactReferred To ContactPhysical Therapy Diagnoses Pain in both lower extremities Paresthesia Procedures GA OFFICE/OUTPATIENT NEW [facility] MDM 60 MINUTES Jazmine Benoit DO [address] [place] [address] [address] [facility] [address] [place] [address] Referral IDStatusReasonStart DateExpiration DateVisits RequestedVisits [id number] Specialty Services Required / [facility] HealthcareReason for visit Narrative* Consultation (Routine) - Closed SpecialtyDiagnoses / ProceduresReferred By ContactReferred To Contact Dermatology Diagnoses Changing skin lesion Procedures GA OFFICE/OUTPATIENT NEW HIGH MDM 60 MINUTES Maggie Walter NP [address] [place] [address] Lora Morillo PA [address] [place] [address] Referral IDStatusReasonStart DateExpiration DateVisits RequestedVisits [id number] Consult and Treat / [facility] HealthcareReason for visit Narrative* Consultation (Routine) - Pending ReviewSpecialtyDiagnoses / ProceduresReferred By ContactReferred To Contact Physical Therapy Diagnoses Pain in both lower extremities Paresthesia Procedures GA OFFICE/OUTPATIENT NEW HIGH MDM 60 MINUTES Jazmine Benoit DO [address] [place] [address] [facility] [address] [place] [address] Referral IDStatusReasonStart DateExpiration DateVisits RequestedVisits [id number] Review Specialty Services Required / [facility] Narrative* CV Imaging (Routine) - Authorized SpecialtyDiagnoses / ProceduresReferred By ContactReferred To Contact Cardiology Diagnoses Coronary artery disease, unspecified vessel or lesion type, unspecified whether angina present, unspecified whether port heiden or transplanted heart History of PTCA History of ST elevation myocardial infarction (STEMI) Ischemic cardiomyopathy Primary hypertension Nonrheumatic mitral valve regurgitation Procedures Transthoracic Echo Complete GA ECHO TTHRC R-T 2D W/WOM-MODE COMPL SPEC&COLR D James Mejia, [address] [facility] [address] [place] [address] Phone: tel: fax: Referral IDStatusReasonStart DateExpiration DateVisits RequestedVisits [id number] Perform Procedure / [facility] Work Phone: Summary Purpose Family History No Family History Records FoundUnknown Family Member Name Dates Details Family history of myocardial infarction: Father(V17.3, Z82.49) Status:Active Unknown Family Member Name Dates Details Family history of myocardial infarction: Father(V17.3, Z82.49) Status:Active Unknown Family Member Name Dates Details Family history of myocardial infarction: Father(V17.3, Z82.49) Status:Active Unknown Family Member Name Dates Details Family history of myocardial infarction: Father(V17.3, Z82.49) Status:Active Unknown Family Member Name Dates Details Family history of myocardial infarction: Father(V17.3, Z82.49) Status:Active Unknown Family Member Name Dates Details Family history of myocardial infarction: Father(V17.3, Z82.49) Status:Active Unknown Family Member Name Dates Details Family history of myocardial infarction: Father(V17.3, Z82.49) Status:Active Unknown Family Member Name Dates Details Family history of myocardial infarction: Father(V17.3, Z82.49) Status:Active Unknown Family Member Name Dates Details Family history of myocardial infarction: Father(V17.3, Z82.49) Status:Active Unknown Family Member Name Dates Details Family history of myocardial infarction: Father(V17.3, Z82.49) Status:Active Unknown Family Member Name Dates Details Family history of myocardial infarction: Father(V17.3, Z82.49) Status:Active Unknown Family Member Name Dates Details Family history of myocardial infarction: Father(V17.3, Z82.49) Status:Active Unknown Family Member Name Dates Details Family history of myocardial infarction: Father(V17.3, Z82.49) Status:Active Unknown Family Member Name Dates Details Family history of myocardial infarction: Father(V17.3, Z82.49) Status:Active Unknown Family Member Name Dates Details Family history of myocardial infarction: Father(V17.3, Z82.49) Status:Active Relationship Condition Age at Onset Recorded Date/T adam father Malignant neoplasm of brain Unknown Myocardial infarctionUnknownCerebrovascular accident (CVA)UnknownNot Specified Malignant neoplasm of colonUnknownsisterLupusUnknownFibromyalgiaUnknownbrother HypothyroidismUnknownbrotherStatus post four vessel coronary artery bypass UnknownHeart diseaseUnknown Unknown Family Member Name Dates Details Family history of myocardial infarction: Father(V17.3, Z82.49) Status:Active Relationship Condition Age at Onset Recorded Date/T adam father Malignant neoplasm of brain Unknown Myocardial infarctionUnknownCerebrovascular accident (CVA)UnknownNot Specified Malignant neoplasm of colonUnknownsisterLupusUnknownFibromyalgiaUnknownbrother HypothyroidismUnknownbrotherStatus post four vessel coronary artery bypass UnknownHeart diseaseUnknownMalignant neoplasmUnknownDeceasedUnknownfamily member DeceasedUnknownNot SpecifiedMalignant neoplasmUnknownFamily history of colon cancerUnknown Relationship Condition Age at Onset Recorded Date/T aadm father Malignant neoplasm of brain Unknown Myocardial infarctionUnknownCerebrovascular accident (CVA)UnknownmotherMalignant neoplasm of colonUnknownsisterLupusUnknownFibromyalgiaUnknownbrother HypothyroidismUnknownbrotherStatus post four vessel coronary artery bypass UnknownHeart diseaseUnknownMalignant neoplasmUnknownDeceasedUnknownfamily member DeceasedUnknownmotherMalignant neoplasmUnknownFamily history of colon cancer Unknown Relationship Condition Age at Onset Recorded Date/T adam father Malignant neoplasm of brain Unknown Myocardial infarctionUnknownCerebrovascular accident (CVA)UnknownDeceasedUnknown Malignant neoplasmUnknownmotherMalignant neoplasm of colonUnknownFamily history of colon cancerUnknownsisterLupusUnknownFibromyalgiaUnknownbrotherHypothyroidism UnknownbrotherHeart diseaseUnknownStatus post four vessel coronary artery bypass Unknownfamily memberDeceasedUnknown Advance Directives No Advanced Directives Records Found Advance Directive Response Recorded Date/ Time Advance Directives No October 2:16pm Advance Directive Response Recorded Date/ Time Advance Directives No October 1:16pm TypeDate RecordedPatient RepresentativeExplanationAdvance Directives and Living Will04/12/2025 8:55 [id number] Labs/MagruderTypeDate RecordedPatient RepresentativeExplanationAdvance Directives and Living Will04/12/2025 8:55 AM 2025-04-02-PAT Labs/Leonarda Chief Complaint * I am doing so much better * ADELA HOPKINS is being seen for f/u cardiac procedure. * I am doing so much better * ADELA HOPKINS is being seen for f/u cardiac procedure. She is ambulatory with steady gait. Last evaluated in clinic by myself August 18, 2021. * August 23, 2021 patient had uneventful cardiac cath with coronary intervention. She presents to the office today where her right radial cath site has healed without adverse sequela. * She reports doing a lot better . She reports slow but steady improvement in her fatigability, dyspnea on exertion has resolved and she is back to normal . She currently is able to go up and down her basement steps without dyspnea. She has not had to utilize additional nitroglycerin. She remains co mpliant with dual antiplatelet treatment. * Recent cath noted LVEF to be 35%. Discussed rationale behind transition to Entresto, she is in agreement. * I am not feeling well * ADELA HOPKINS is being seen for a 2 week follow-up of coronary artery disease and cardiomyopathy. * Patient presents to [facility] for cardiovascular evaluation. * Patient is ambulatory with steady gait. * Last evaluated in clinic by myself 2 weeks ago and started Entresto 24/26mg BID * Compared to last cardiovascular evaluation, patient reports BP has been low (llegs jittery, headache, weakness) * Patient denies any hospitalizations or significant changes to interval medical history since last office follow-up. * Was treated for ear infection, allergic reaction and treated in ER. * Patient attends to own ADLs and functional ADLs. * Patient daily activity includes: to start cardiac rehab today * Patient ambulate in from parking lot with following concerns: * Patient denies change to exercise tolerance or functional capacity since last evaluation. * Symptomatic hypotension * Prior Angina: MORRIS * Last NTG use: none * Current cardiovascular concerns: * Low BP * Headaches * Echo results. * ADELA HOPKINS is being seen for a 1 month follow-up of. * Patient is a 61-year-old female who returns following inferior ST elevation PA in April 2021 with primary revascularization of proximal through mid RCA with drug-eluting stent and balloon angioplasty of the PDA branch. She subsequently returned for staged intervention and evaluation of the mid circumflex with drug-eluting stenting in August 2021. Intravascular ultrasound of the left main was performed at that time as well as IFR of the mid RCA was performed both of which revealed nonsignificant disease details of which are reviewed. * Left ventricular function previously was hovering around 35% but now after initiation of Entresto, and subsequent echocardiographic imaging left ventricular function is fortunately normalized with ejection fraction of 55%. She is asymptomatic, denies any hospitalizations, heart failure, angina or CO VID illness or edema or syncope. * Recommendations: Continue current therapies, follow-up in 6 months * I am doing fine * ADELA HOPKINS is being seen for a 6 month follow-up of coronary artery disease and cardiomyopathy. * Patient is ambulatory with steady gait. * Last evaluated in clinic by Dr. Mejia Dec 2021. * A chronological chart review from last in clinic evaluation was completed. * Compared to last cardiovascular evaluation, patient reports 'doing the same * Patient denies any hospitalizations or significant changes to interval medical history since last office follow-up. * Patient attends to own ADLs and functional ADLs. * Patient daily activity includes: housework, vacuum/mop. Has 10 steps at home/no change MORRIS * Patient ambulate in from parking lot without concerns. * Patient denies change to exercise tolerance or functional capacity since last evaluation. * Prior Angina: MORRIS * Last NTG use: none * May need scope for left shoulder - would be ok to interrupt DAPT after Aug 23, 2022. * Is now on disability. * I am doing fine * ADELA HOPKINS is being seen for a 6 month follow-up of coronary artery disease and cardiomyopathy. * Patient is ambulatory with steady gait. * Last evaluated in clinic by Dr. Mejia Dec 2021. * A chronological chart review from last in clinic evaluation was completed. * Compared to last cardiovascular evaluation, patient reports 'doing the same * Patient denies any hospitalizations or significant changes to interval medical history since last office follow-up. * Patient attends to own ADLs and functional ADLs. * Patient daily activity includes: housework, vacuum/mop. Has 10 steps at home/no change MORRIS * Patient ambulate in from parking lot without concerns. * Patient denies change to exercise tolerance or functional capacity since last evaluation. * Prior Angina: MORRIS * Last NTG use: none * May need scope for left shoulder - would be ok to interrupt DAPT after Aug 23, 2022. * Is now on disability. * Routine f/u: 'doing fine' * ADELA HOPKINS is being seen for a 8 month follow-up of coronary artery disease, dyslipidemia and hypertension. * Patient presents to the office ambulatory with steady gait. Last evaluated in clinic Dr. Mejia December 2022. She follows routinely with PCP with annual wellness labs. She denies any hospitalizations or significant changes to interval medical history since last office follow-up. * She presents to the office today reportedly doing pretty good . She remains active doing gardening, yard work and housework. Her laundry is down in the basement and she goes up and down the stairs on a regular basis. Her prior anginal symptom was jaw and chest pain and she denies any recurrence, no utilization of nitroglycerin. She denies any change in exercise capacity or functional tolerance. She has noted some increase in nuisance bleeding on DAPT, due to mild/moderate left main disease will continue on Plavix but later discontinue aspirin. Occasionally she noticed some mild dizziness after morning medication and she will separate dose of carvedilol and Entresto by 2 hours. * Secondary prevention has been reviewed and remains optimal. 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 Agrees to start walking on a treadmill 30 minutes a day 3 times a week. * Overall patient is pleased with current state of cardiovascular health. At this time there are no indications for additional cardiovascular testing or need for medication changes. Chief Complaint and Reason for Visit Chief Complaint Admit Date REFF BY VIBHA JENSEN January 19, 2025 10:47am Back Pain February 03, 2025 8:05 am Reason for Visit Admit Date Lumbar radiculopathy January 19, 2025 10:47am Lumbosacral spondylosis January 19, 025 10:47am Neck pain January 19, 2025 10:47am Other chronic pain January 19, 2025 10:47am Sacroiliitis January 19, 2025 10:47am Chief Complaint head injury,due to f all Chief Complaint head injury,due to f all left foot pain-fall Chief Complaint chest pain Chief Complaint chest pain Reason for Visit AV heart block Chest pain SARS-CoV-2 positive Symptomatic bradycardia Chief Complaint chest pain chest painReason for VisitAV heart block Chest pain Neurocardiogenic syncope SARS-CoV-2 positive Symptomatic bradycardia Chief Complaint chest pain chest pain chest congestion, feverReason for VisitAV heart block Chest pain Neurocardiogenic syncope SARS-CoV-2 positive Symptomatic bradycardia Chief Complaint chest pain chest pain chest congestion, fever R55 I44.30 R00.1Reason for VisitAV heart block Chest pain Neurocardiogenic syncope SARS-CoV-2 positive Symptomatic bradycardia Chief Complaint Admit Date chest pain August 10, 2024 4:33pm chest pain August 10, 2024 11:31pm chest congestion, fever August 12, 2024 9:21am R55 I44.30 R00.1 August 15, 2024 12:28pm m51.362 October 20, 2024 11:08am Reason for Visit Admit Date AV heart block August 10, 2024 4:33pm Chest pain August 10, 2024 4:33pm Neurocardiogenic syncope August 10, 2024 4:33pm SARS-CoV-2 positive August 10, 2024 4:33pm Symptomatic bradycardia August 10, 2 024 4:33pm Chief Complaint Admit Date REFF BY VIBHA JENSEN January 19, 2025 10:47am Chief Complaint Admit Date REFF BY VIBHA JENSEN January 19, 2025 10:47am Back Pain February 03, 2025 8:05 am M54.2 February 10, 2025 2:3 0pm Chief Complaint Admit Date REFF BY VIBHA JENSEN January 19, 2025 10:47am Back Pain February 03, 2025 8:05 am M54.2 February 10, 2025 2:3 0pm FOLLOW UP AFTER LES February 12, 2025 11: 26am Reason for Visit Admit Date Lumbar radiculopathy January 19, 2025 10:47am Lumbosacral spondylosis January 19, 2 025 10:47am Neck pain January 19, 2025 10:47am Other chronic pain January 19, 2025 10:47am Sacroiliitis January 19, 2025 10:47am Cervical spondylosis February 12, 2025 11 :26am Lumbar radiculopathy February 12, 2025 11 :26am Lumbosacral spondylosis February 12, 2025 11:26am Other chronic pain February 12, 2025 11: 26am Sacroiliitis February 12, 2025 11: 26am Chief Complaint Admit Date Screening August 25, 2025 7:38am Reason for Referral SpecialtyDiagnoses / ProceduresReferred By ContactReferred To ContactCardiology Diagnoses Coronary artery disease, unspecified vessel or lesion type, unspecified whether angina present, unspecified whether [place] he[place] or transplanted heart History of PTCA Ischemic cardiomyopathy Hypertension, unspecified type Other fatigue Difficulty breathing Procedures Transthoracic Echo Complete GA ECHO TTHRC R-T 2D W/WOM-MODE COMPL SPEC&COLR D James Mejia, DO [address] [facility] [address], [place] [address] Referral IDStatusReBrookwood [facility] DateExpiration DateVisits RequestedVisits [id number] Review Perform Procedure [id number] / ProceduresReferred By ContactReferred To ContactCardiology Diagnoses Coronary artery disease, unspecified vessel or lesion type, unspecified whether angina present, unspecified whether port heiden or transplanted heart Procedures Follow Up In Cardiology James Mejia, [address] [facility] [address], [place] [id number] Melanie Tracy, ART SALES CONSULTANT-CREDIT AND LOAN COLLECTIONS SUPERVISOR [address] [facility] [address], [place] [address] Referral IDStatC[facility] Clinic [facility] DateExpiration DateVisits RequestedVisits [id number] Additional Source Comments INFORMATION SOURCE (unrecogn ized section and content) DATE CREATED AUTHOR 05/30/2018 [facility] DATE CREATED AUTHOR AUTHOR'S ORGANIZ ATION 11/24/2021 [facility] DATE CREATED AUTHOR AUTHOR'S ORGANIZ ATION 12/14/2022 [facility] DATE CREATED AUTHOR AUTHOR'S ORGANIZ ATION 01/16/2023 [facility] DATE CREATED AUTHOR AUTHOR'S ORGANIZ ATION 08/08/2023 [facility] DATE CREATED AUTHOR AUTHOR'S ORGANIZ ATION 08/08/2023 [employer] DATE CREATED AUTHOR AUTHOR'S ORGANIZ ATION 02/27/2025 [facility] DATE CREATED AUTHOR AUTHOR'S ORGANIZ ATION 03/12/2025 [facility] DATE CREATED AUTHOR AUTHOR'S ORGANIZ ATION 05/03/2025 [facility] DATE CREATED AUTHOR AUTHOR'S ORGANIZ ATION 08/17/2025 [facility], [facility] EPIC DATE CREATED AUTHOR AUTHOR'S ORGANIZ ATION 09/05/2025 [facility] REASON FOR VISIT (unrecogniz ed section and content) ReasonCommentsFollow-ui8iKhfynohapAapvpslty / ProceduresReferred By Contact Referred To ContactCardiology Diagnoses Coronary artery disease, unspecified vessel or lesion type, unspecified whether angina present, unspecified whether port heiden or transplanted heart History of PTCA Ischemic cardiomyopathy Hypertension, unspecified type Other fatigue Difficulty breathing Procedures Transthoracic Echo Complete GA ECHO TTHRC R-T 2D W/WOM-MODE COMPL SPEC&COLR D James Mejia S, DO [address] [facility] 2, [address] [address] Referral IDStatusReasonStart DateExpiration DateVisits RequestedVisits [id number] Perform Procedure [id number] PainNumbnessReasonCommentsUTIReason CommentsHospital Follow-upReasonCommentsAnnual ExamReasonOnset DateCommentsPT cx 08/05/2024Lisapina had called and lm re: PT today and needed to cx.FU4Called to recommend rs. She said she will get her work schedule tomorrow and will contact w/ availability.FU x24Called to rs and she said that the schedule will be hung up tonight and she will contact 08/10 w/ availability.FU x3 (final)4Contacted and she noted off Wed & Th; she requested to schedule [id number].ReasonOnset DateCommentsPT Initial Eval4Contacted and offered scheduling PT Eval and she said she has not gotten schedule yet for work yet.I noted if no hear back by 09/02, I would contact.re: PT08/31/2024I had tried to contact but had to lm noting per her last PT (same referring provider / same diagnosis codes) can be continued onto the most recent referral B/L LE's (right / left leg) and paresthesia. We could schedule a reassess and cont on.FU 08/31/2024She called back and I confirmed w/ Vimal that we can cont off previous referral. I scheduled her 09/01 @ 1:30 w/ Evon Vela, [place].Reason CommentsCoughSymptoms started 1 week ago with a sore throat. Has taken Coricidin HBP, which did not help much.HeadacheReasonCommentsBack PainNumbnessReason CommentsFollow-up6 monthSpecialtyDiagnoses / ProceduresReferred By Contact Referred To ContactCardiology Diagnoses Coronary artery disease, unspecified vessel or lesion type, unspecified whether angina present, unspecified whether port heiden or transplanted heart Procedures Follow Up In Cardiology Melanie Tracy, ART SALES CONSULTANT-CREDIT AND LOAN COLLECTIONS SUPERVISOR [address] [facility] 2, [facility] [address] [place] [address] Phone: tel: fax: James Mejia, DO [address] [facility], [facility] [address] [place] [address] Phone: tel: fax: Referral IDStatusReasonStart DateExpiration DateVisits RequestedVisits [id number]squ Diagnoses / ProceduresReferred By ContactReferred To ContactOrthopaedic Surgery Diagnoses Chronic left shoulder pain Robert Newell MD [address] [facility] [address] [place] [address] Phone: tel: fax: Jr. Bernabe Hunt, DO [address] [place] [address] Phone: tel: fax: Referral IDStatusReasonStart DateExpiration DateVisits RequestedVisits [id number] Consult and Treat [id number] Month Follow Up of Chronic ConditionsUrinary symptomsPtReasonCommentsPre-op ExamReasonCommentsPainReasonOnset DateCommentsPT PO Eval05/17/2025Need to send referral back once Eval scheduled for AuthReason CommentsLeg PainLeft sided, starts lower back and radiates down & around x2wks ReasonComments6 month follow up of chronic conditions Care Teams (unrecognized sec tion and content) Team Status: Active Member Role Status Jas Newell MD Primary Care Provider Active Team Status: Active Member Role Status Jas Newell MD Primary Care Provider Active St art: August 25, 2025 Jose Galvan ProviderActiveStart: August 25, 2025 Liu Campbell MDOther ProviderActiveStart: August 25, 2025 Team Status: Inactive Member Role Status Jas Newell MD Primary Care Provider Active St art: August 10, 2024 End: August 11Tal Garland ProviderActiveStart: August 10, 2024 End: August 11, 2024Jean Marie Rebolledo ProviderActiveStart: August 10, 2024 End: August 11, 2024Odalis Quezada ProviderActiveStart: August 10, 2024 End: August 11, 2024Jose Sorensen ProviderActiveStart: August 10, 2024 End: August 11, 2024 Team Status: Active Member Role Status Jas Newell MD Primary Care Provider Active St art: August 10, 2024 Tal Sanchez ProviderActiveStart: August 10, 2024 Jean Marie Rebolledo Provider, Other ProviderActiveStart: August 10, 2024 Jose Quezada ProviderActiveStart: August 10, 2024 Team Status: Active Member Role Status Jas Newell MD Primary Care Provider Active St art: August 10, 2024 Tal Sanchez ProviderActiveStart: August 10, 2024 Jean Marie Rebolledo Provider, Attending ProviderActiveStart: August 10, 2024 Team Status: Inactive Member Role Status Jas Newell MD Primary Care Provider Active Nolan Joseph ProviderActive Team Status: Inactive Member Role Status Jas Newell MD Primary Care Provider Active Tal [place] ProviderActive Team Status: Inactive Member Role Status Jas Newell MD Primary Care Provider Active St art: January 16, 2024 End: January 16Nolan Soler ProviderActiveStart: January 16, 2024 End: January 16, 2024Team MemberRelationshipSpecialtyStart DateEnd Robert Tobar MD [address] [place] [address] PCP - Ywjnala15/10/21Team MemberRelationshipSpecialtyStart DateEnd Robert Tobar MD [address] [place] [address] PCP - Jhxxhet30/10/21 Team Status: Inactive Member Role Status Jas Newell MD Primary Care Provider Active St art: August 12, 2024 End: August 12, 2024Tal Chabmers ProviderActiveStart: August 12, 2024 End: August 12, 2024 Team Status: Inactive Member Role Status Jas Newell MD Primary Care Provider Active St art: August 15, 2024 End: August 15, 2024Jose Sorensen ProviderActiveStart: August 15, 2024 End: August 15, 2024Team MemberRelationshipSpecialtyStart DateEnd Robert Tobar MD [address] [place] [place] [address] PCP - GeneralInternal Medicine06/19/23 David Khan DPM [address] [address] Referring PhysicianPodiatry06/22/24Team MemberRelationshipSpecialtyStart [facility] Robert Newell MD [address] [place] [address] PCP - GeneralInternal Medicine06/19/23 David Khan DPM [address] [address] Referring PhysicianPodiatry06/22/24Team MemberRelationshipSpecialtyStart [facility] Robert Newell MD [address] [place] [address] PCP - GeneralInternal Medicine06/19/23 David Khan DPM [address] [address] Referring PhysicianPodiatry06/22/24Team MemberRelationshipSpecialtyStart [facility] Robert Newell MD [address] [place] [address] PCP - GeneralInternal Medicine06/19/23 David Khan DPM [address] [address] Referring PhysicianPodiatry06/22/24Team MemberRelationshipSpecialtyStart [facility] Robert Tobar MD [address] [place] [address] PCP - GeneralInternal Medicine06/19/23 David Khan DPM [address] [place] [address] Referring PhysicianPodiatry06/22/24Team MemberRelationshipSpecialtyStart DateEnd Robert Newell MD [address] [place] [address] PCP - GeneralInternal Medicine06/19/23 David Khan DPM [address] [address] Referring PhysicianPodiatry06/22/24Team MemberRelationshipSpecialtyStart DateEnd Robert Newell MD [address] [place] [address] PCP - GeneralInternal Medicine06/19/23 David Khan DPM [address] [address] [place] [address] Referring PhysicianPodiatry06/22/24Team MemberRelationshipSpecialtyStart DateEnd Robert Newell MD [address] [place] [address] PCP - GeneralInternal Medicine06/19/23 David Khan DPM [address] [place] [address] Referring PhysicianPodiatry06/22/24Team MemberRelationshipSpecialtyStart DateEnd Robert Newell MD [address] [place] [address] PCP - GeneralInternal Medicine06/19/23 David Khan DPM [address] [address] Referring PhysicianPodiatry06/22/24Team MemberRelationshipSpecialtyStart DateEnd Robert Newell MD [address] [place] [address] PCP - GeneralInternal Medicine06/19/23 David Khan DPM [address] [address] Referring PhysicianPodiatry06/22/24 Team Status: Inactive Member Role Status Dates Robert Newell MD Primary Care Provider Active St art: October 20, 2024 End: October 20hrBrijesh Walker ProviderActiveStart: October 20, 2024 End: October 20, 2024Team MemberRelationshipSpecialtyStart DateEnd Robert Newell MD [address] [place] [address] PCP - GeneralInternal Medicine06/19/23 David Khan DPM [address] [address] Referring PhysicianPodiatry06/22/24Team MemberRelationshipSpecialtyStart DateEnd Date Robert Newell MD [address] [place] [address] PCP - GeneralInternal Medicine06/19/23 David Khan DPM [address] [address] Referring PhysicianPodiatry06/22/24Team MemberRelationshipSpecialtyStart DateEnd Robert Newell MD [address] [place] [address] PCP - GeneralInternal Medicine06/19/23 David Khan DPM [address] [address] Referring PhysicianPodimarshall county hospitaly06/22/24Team MemberRelationshipSpecialtyStart End Robert Newell MD [address] [place] [address] PCP - GeneralInternal Medicine06/19/23 David Khan DPM [address] [address] Referring PhysicianPodimarshall county hospitaly06/22/24Team MemberRelationshipSpecialtyStart End Robert Newell MD [address] [place] [address] PCP - GeneralInternal Medicine06/19/23 David Khan DPM [address] [address] Referring PhysicianPodiatry06/22/24Team MemberRelationshipSpecialtyStart [facility] Robert Newell MD [address] [place] [address] PCP - GeneralInternal Medicine06/19/23 David Khan DPM [address] [address] Referring PhysicianPodiatry06/22/24Team MemberRelationshipSpecialtyStart [facility] Robert Newell MD [address] [place] [address] PCP - GeneralInternal Medicine06/19/23 David Khan DPM [address] [address] Referring PhysicianPodiatry06/22/24Team MemberRelationshipSpecialtyStart [facility] Robert Newell MD [address] [place] [address] PCP - GeneralInternal Medicine06/19/23 David Khan DPM [address] [address] Referring PhysicianPodiatry06/22/24 Jazmine Benoit DO [address] [address] Referring PhysicianNeurology1Team MemberRelationshipSpecialtyStart Robert Shoemaker MD [address] [place] [address] PCP - GeneralInternal Medicine06/19/23 David Khan DPM [address] [facility] [address] [place] [address] Referring PhysicianPodiatry06/22/24 Jazmine Benoit DO [address] [place] [address] Referring PhysicianNeurology1Team MemberRelationshipSpecialtyStart DateEnd Date Robert Newell MD [address] [address] [place] [address] PCP - Frpskpm21/10/21 Team Status: Inactive Member Role Status Dates Robert Newell MD Primary Care Provider Active St art: January 19, 2025 End: January 19, 2025Jordan Salazar MDAt[facility] ProviderActiveStart: January 19, 2025 End: January 19, 2025Team MemberRelationshipSpecialtyStart DateEnd Date Robert Newell MD [address] [place] [address] PCP - GeneralInternal Medicine06/19/23 David Khan DPM [address] [address] [place] [address] Referring PhysicianPodiatry06/22/24 Jazmine Benoit DO [address] [place] [address] Referring PhysicianNeurology1Team MemberRelationshipSpecialtyStart DateEnd [facility] Robert Newell MD [address] [place] [address] PCP - GeneralInternal Medicine06/19/23 David Khna DPM [address] [address] Referring PhysicianPodiatry06/22/24 Jazmine Benoit DO [address] [place] [address] Referring PhysicianNeurology1Team MemberRelationshipSpecialtyStart DateEnd [facility] Robert Newell MD [address] [place] [address] PCP - GeneralInternal Medicine06/19/23 David Khan DPM [address] [address] Referring PhysicianPodiatry06/22/24 Jazmine Benoit DO [address] [address] Referring PhysicianNeurology1 Team Status: Inactive Member Role Status Jas Newell MD Primary Care Provider Active St art: February 03, 2025 End: February 03, 2025Jose Zimmer ProviderActiveStart: February 03, 2025 End: February 03, 2025 Team Status: Inactive Member Role Status Jas Newell MD Primary Care Provider Active St art: February 10, 2025 End: February 10, 2025Jose Zimmer ProviderActiveStart: February 10, 2025 End: February 10, 2025 Team Status: Inactive Member Role Status Dates Robert Newell MD Primary Care Provider Active St art: February 12, 2025 End: February 12, 2025Jordan Salazar MDAt[facility] ProviderActiveStart: February 12, 2025 End: February 12, 2025Team MemberRelationshipSpecialtyStart DateEnd Date Robert Newell MD [address] [address] [place] [address] PCP - Zspwssn79Team MemberRelationshipSpecialtyStart DateEnd [facility] Robert Newell MD [address] [place] [address] PCP - [facility]well Medical Centernal Medicine06/19/23 David Khan DPM [address] [address] Referring PhysicianPodiatry06/22/24 Jazmine Benoit DO [address] [place], [place] [address] Referring PhysicianNeurolog12/29/24Team MemberRelationshipSpecialtyStart DateEnd Date Robert Newell MD [address] [place] [address] PCP - GeneralInternal Medicine06/19/23 David Khan DPM [address] [address] Referring PhysicianPodiatry06/22/24 Jazmine Benoit DO [address] [place] [address] Referring PhysicianNeurology1Team MemberRelationshipSpecialtyStart DateThe [facility] Robert Newell MD [address] [place] [address] PCP - GeneralInternal Medicine06/19/23 David Khan DPM [address] [address] Referring PhysicianPodiatry06/22/24 Jazmine Benoit DO [address] [address] Referring PhysicianNeurology1Team MemberRelationshipSpecialtyStart [facility] Robert Newell MD [address] [place] [address] PCP - GeneralInternal Medicine06/19/23 David Khan DPM [address] [address] Referring PhysicianPodiatry06/22/24 Jazmine Benoit DO [address] [address] Referring PhysicianNeurology1Team MemberRelationshipSpecialtyStart DateThe [facility] Robert Newell MD [address] [place] [address] PCP - GeneralInternal Medicine06/19/23 David Khan DPM [address] [address] Referring PhysicianPodiatry06/22/24 Jazmien Benoit DO [address] [address] Referring PhysicianNeurology1Team MemberRelationshipSpecialtyStart DateEnd Robert Newell MD [address] [place] [address] PCP - GeneralInternal Medicine06/19/23 David Khan DPM [address] [address] Referring PhysicianPodiatry06/22/24 Jazmine Benoit DO [address] [phone] Referring PhysicianNeurology1Team MemberRelationshipSpecialtyStart End Robert Newell MD [address] [place] [address] PCP - GeneralInternal Medicine06/19/23 David Khan DPM [address] [phone] Referring PhysicianPodiatry06/22/24 Jazmine Benoit DO [address] [address] Referring PhysicianNeurology1Team MemberRelationshipSpecialtyStart DateEnd Robert Newell MD [address] [place] [address] PCP - GeneralInternal Medicine06/19/23 David Khan DPM [address] [address] Referring PhysicianPodiatry06/22/24 Jazmine Benoit DO [address] [address] Referring PhysicianNeurology1/Team MemberRelationshipSpecialtyStart DateThe [facility] Robert Newell MD [address] [place] [address] PCP - GeneralInternal Medicine06/19/23 David Khan DPM [address] [address] Referring PhysicianPodiatry06/22/24 Jazmine Benoit DO [address] [phone] Referring PhysicianNeurology1Team MemberRelationshipSpecialtyStart DateThe [facility] Robert Newell MD [address] [place] [address] PCP - GeneralInternal Medicine06/19/23 David Khan DPM [address] [address] Referring PhysicianPodiatry06/22/24 Jazmine Benoit DO [address] [address] Referring PhysicianNeurology1Team MemberRelationshipSpecialtyStart DateThe [facility] Robert Newell MD [address] [place] [address] PCP - GeneralInternal Medicine06/19/23 David Khan DPM [address] [address] Referring PhysicianPodiatry06/22/24 Jazmine Benoit DO [address] [address] Referring PhysicianNeurology1Team MemberRelationshipSpecialtyStart [facility] Robert Newell MD [address] [place] [address] PCP - GeneralInternal Medicine06/19/23 David Khan DPM [address] [address] Referring PhysicianPodiatry06/22/24 Jazmine Benoit DO [address] [address] Referring PhysicianNeurology1Team MemberRelationshipSpecialtyStart [facility] Robert Tobar MD [address] [place] [address] PCP - GeneralInternal Medicine06/19/23 David Khan DPM [address] [address] Referring PhysicianPodiatry06/22/24 Jazmine Benoit DO [address] [address] Referring PhysicianNeurolog12/29/24Team MemberRelationshipSpecialtyStart DateEnd Date Robert Newell MD [address] [place] [address] PCP - GeneralInternal Medicine06/19/23 David Khan DPM [address] [address] Referring PhysicianPodiatry06/22/24 Jazmine Benoit DO [address] [address] Referring PhysicianNeurolog12/29/24 Goals (unrecognized section and content) Goals may be documented in a n alternate section FOR RECORDS PERTAINING TO PATIENTS WHO ARE OR HAVE BEEN ENROLLED IN A CHEMICAL DEPENDENCY/SUBSTANCEABUSE PROGRAM, SOME INFORMATION MAY BE OMITTED. This clinical summary was aggregated from multiple sources. Caution should be exercised in using it in the provision of clinical care. This summary normalizes information from multiple sources, and as a consequence, information in this document may materially change the coding, format and clinical context of patient data. In addition, data may be omitted in some cases. CLINICAL DECISIONS SHOULD BE BASED ON THE PRIMARY CLINICAL RECORDS. [employer] provides no warranty or guarantee of the accuracy or completeness of information in this document.
--- OUTSIDE RECORDS SUMMARY | 2025-09-22 20:56 | XMS_ITS | Clinical Summary ---
Author Organization [facility] Address [address] [place] [address] Care Team Providers Care Marine Fireman Name Role Phone Jarvis Collins MD Primary Care Provider [phone] David Khan DPM Unavailable [phone] Young Benoit DO Unavailable [phone] Allergies Active AllergyReactionsCriticalityNoted LywuLqtkrntkKmkcdcfoVdt55/13/2023 Other Reaction(s): facial tingling/ rash LxvuykykwvtqTatnpUsi49/11/2024 homicidal RsxsjnvtewjasrNefpFnn65/13/2023 Other Reaction(s): Head Spinning / Hallucinations / Rash Other Reaction(s): Hives, vomitting/rash UwfyaecnksqWkysVos40/13/2023 Other Reaction(s): Tongue Swelling / Rash TicagrelorShortness of vaqxhdOmdg32/15/2024 Other Reaction(s): Difficulty Breathing BenkytytMhbyvvgQvw89/13/2023 Other Reaction(s): itching Medications MedicationSigDispense QuantityRefillsLast FilledStart DateEnd DateStatus carvedilol (Coreg) 3.125 MG tablet Take 3.125 mg by mouth every 12 (twelve) hoursActive diclofenac sodium 3 % gel Active meclizine (Antivert) 25 MG tablet Take 25 mg by mouth as needed in the morning and 25 mg as needed at noon and 25 mg as needed in theevening for dizziness.Active clopidogrel (Plavix) 75 MG tablet Indications:Coronary artery disease involving chitina coronary artery of chitina heart without angina pectorisTake 1 tablet (75 mg) by mouth Daily 90 tablet ctive Entresto 24-26 MG tablet Indications:Congestive heart failure, unspecified HF chronicity, unspecified heart failure type (HCC)TAKE 1 TABLET BY MOUTH TWICE A DAY 180 tablet 5Active levalbuterol (Xopenex HFA) 45 MCG/ACT inhaler Indications:Mild persistent asthmatic bronchitis without complication (HCC),Mild intermittent asthma with acute exacerbation (HCC)Inhale 2 puffs every 6 (six) hours if needed for wheezing 15 g 5001/19/2026ctive levothyroxine (Synthroid, Levoxyl) 100 MCG tablet Indications:Acquired hypothyroidismTake 1 tablet (100 mcg) by mouth Daily 90 tablet 506Active benzonatate (Tessalon) 100 MG capsule Indications:Upper respiratory tract infection, unspecified typeTAKE 1 CAPSULE BY MOUTH THREE TIMES A DAY NEEDED FOR COUGH (DO NOT CRUSH OR CHEW) 42 capsule 5Active pantoprazole (Protonix) 40 MG EC tablet 40 mg5Active nitroglycerin (Nitrostat) 0.4 MG SL tablet Indications:Coronary artery disease involving chitina coronary artery of chitina heart without angina pectorisPlace 1 tablet (0.4 mg) under the tongue every 5 (five) minutes if needed for chest pain 90 tablet 5Active citalopram (CeleXA) 40 MG tablet Indications:Moderate major depression (HCC)Take 1 tablet (40 mg) by mouth Daily 90 tablet 5Active Semaglutide-Weight Management (Wegovy) 2.4 MG/0.75ML solution auto-injector Indications:Coronary artery disease involving chitina coronary artery of chitina heart without angina pectoris,Severe obesity (BMI 35.0-35.9 with comorbidity) ([facility]),BMI 37.0-37.9, adultInject 2.4 mg under the skin 1 (one) time per week 3 mL 505Active traZODone (Desyrel) 50 MG tablet Indications:Primary insomniaTake 1 tablet (50 mg) by mouth as needed at bedtime for sleep 30 tablet /315938/6Active atorvastatin (Lipitor) 40 MG tablet Take 40 mg by mouth at bedtimeActive Active Problems ProblemNoted DateDiagnosed DateLesion of ulnar nerve, left upper limb07/11/2024 Nonrheumatic mitral valve rclsptuquqrcy11/25/2024Lumbar tuxqqiewrclxo53/20/2023 Age-related osteoporosis without current pathological ujfjocvt93/19/2023nemia 3Asthmatic knuwifvdtc95/19/2023hronic zuvfvislxrdl53/19/2023ongestive heart olicdrf6006/19/2023oronary artery eykwezp9406/19/2023Essential hypertension 06/19/2023astroesophageal reflux kbipykj5106/19/20235943Kbuneilgobzser87/19/2023 Internal derangement of left amvapvzg92/19/2023Ischemic foojawxqekakpv38/19/2023 Moderate major hnteuifejm45/19/2023Stage 3a chronic kidney xefifhe7006/19/2023 Tension qnycbkao41/19/2023ure voiunpduoifmleigjzjn75/19/2023Microscopic gttcmuxan71/10/2023 Resolved Problems ProblemNoted DateDiagnosed DateResolved DateHistory of qevkewxjnsri23/29/2021 12/26/2023 Encounters DateTypeDepartmentCare UjcuYrrzwzrikav82/25/2025Telephone [facility] [address] [place] [address] Jarvis Collins MD 08/25/2025Orders Only [facility] [address] [place] [address] Liu Campbell MD 08/16/2025 10:30 AM EDTOffice Visit [facility] [address] [place] [address] Jose Camarena PA Acute pain of left shoulder (Primary Dx); S/P arthroscopy of left /15/2025Telephone [facility] [address] [place] [address] Jose Camarena PA 08/16/2025amboo flowsheet [facility] [address] [place] [address] Jose Camarena PA 08/16/20259201Qtxvtk01/20/2025 1:00 PM EDTOffice Visit [facility] [address] [place] [address] 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, OPERATION SHIFT SUPERVISOR Essential hypertension (Primary Dx); Stage 3a chronic kidney disease ([facility]); Coronary artery disease involving chitina coronary artery of chitina heart without angina pectoris ; Chronic systolic congestive heart failure (HCC); Pure hypercholesterolemia ; Moderate major depression (HCC); Acquired hypothyroidism ; Age-related osteoporosis without current pathological fracture ; Gastroesophageal reflux disease without esophagitis; Lumbar radiculopathy; Primary insomnia; Snoring; Colon cancer screening; Severe obesity (BMI 35.0-35.9 with comorbidity) ([facility]); BMI 37.0-37.9, adult07/21/20254790Jxepwx74/11/2025 10:45 AM EDTOffice Visit [facility] [address] [place] [address] Jose Camarena PA S/P arthroscopy of left shoulder (Primary Dx)07/12/2025amboo flowsheet [facility] [address] [place] [address] Jose Camarena PA 07/12/20251645Glriqe01/04/2025Refill [facility] [address] [place] [address] Margarita Romero LPN Moderate major depression (HCC)from Last 3 Months Immunizations ImmunizationAdministration DatesNext DueInfluenza, injectable, MDCK, preservative free, jrggwwlrenfd47/29/2021Influenza, injectable, quadrivalent, preservative free08/23/2020Influenza, seasonal, konjgwjgfk98/31/2020 Family History Medical HistoryRelationNameCommentsMRSABrotherBrain cancerFatherHeart disease FatherStrokeFatherNo Known ProblemsMaternal GrandmotherCancerMotherThyroid diseaseMotherBreast cancerMother's SisterDiabetesOthersiblingHypertensionOther siblingRelationNameStatusCommentsBrotherDeceasedFatherDeceasedMaternal GrandmotherMotherDeceasedMother's SisterAliveOthersibling Social History Tobacco UseTypesPacks/DayYears UsedDateSmoking Tobacco: FormerCigarettes 12/02/1971 - 12/02/1999Smokeless Tobacco: Never Tobacco Cessation:Counseling Given: Not Answered Alcohol UseStandard Drinks/WeekCommentsYes0 (1 standard drink = 0.6 oz pure alcohol)Twice a year. Caffeine: Coffee, 4-5 daily. Pop, 3 cans weeklyAUDIT-C AnswerDate RecordedQ1: How often do you have a drink containing alcohol?Monthly or less06/01/2025Q2: How many drinks containing alcohol do you have on a typical day when you are drinking?1 or Q3: How often do you have six or more drinks on one occasion?Never06/01/2025PHQ-2AnswerDate RecordedPatient Health Questionnaire-2 Ljpxh051CommentsNoSex and Gender Information ValueDate RecordedSex Assigned at BirthNot on fileLegal VfnBiqobz46/15/2023 6:48 PM EDTGender IdentityNot on fileSexual OrientationNot on fileOccupationIndustry Job Start DateJob End DateDisability. Works nursing care partner as cashierNot on fileNot on fileNot on file Last Filed Vital Signs Vital SignReadingTime TakenCommentsBlood Yyewmtbv457/6208 1:14 PM EDT Kljwl7611 1:14 PM NDKRzyhwbhoxvq35.2 ??C (97.2 ??F)12/03/2024 9:38 AM ESTRespiratory Fkij919812/21/2023 3:06 PM ESTOxygen Dperwdxsfv67%07/21/2025 1:14 PM EDTInhaled Oxygen Concentration--Ixncto02.1 kg (203 lb)07/21/2025 1:14 PM EDT Cniksw136.5 cm (5' 2 )07/21/2025 1:14 PM EDTBody Mass Index37.1308 1:14 PM EDT Plan of Treatment DateTypeDepartmentCare Team (Latest Contact Info)Cbrewkrxzzf83/13/2025 10:30 AM ESTOffice Visit [facility] [address] [place] [phone] Jose Camarena, PA [address] [facility] [place] [place] [address] 01/26/2026 1:00 PM ESTOffice Visit [facility] [address] [place] [address] Health MaintenanceDue DateLast DoneCommentsCT Wfzttazsrtbo1961FIT-DNA 1961FIT1961FOBT05/13/19615884Apldhrsmduduw1961ap Smear1982 Cervical Cancer Effuzkdup06/12/1991HPV/Hjcwzu0405/13/19918206Dducuhfvr54/21/2025 07/22/2024, 06/26/2023, 10/17/2021Influenza Vaccine (#1)51, 12/01/2020, 08/23/20208358Xwvmpsqgted80/24/920415/olorectal Cancer Screening 08/25/2035 Procedures Procedure NamePriorityDate/TimeAssociated DiagnosisCommentsCOLONOSCOPYRoutine 08/25/2025 9:36 AM EDTT4, STZHRrjzsfh96/18/2025 1:03 PM EDT Acquired hypothyroidism GOOFuuzzxe17/18/2025 1:03 PM EDT Acquired hypothyroidism LIPID OTIALEepnuwm33/18/2025 1:03 PM EDT Pure hypercholesterolemia COMPREHENSIVE METABOLIC COXDZEqyuump15/18/2025 1:03 PM EDT Essential hypertension CBC (INCLUDES DIFF/PLT)Dtbitcs6807/19/2025 1:03 PM EDT Stage 3a chronic kidney disease (CMS-HCC) BI MAMMOGRAM SCREENING TOMOSYNTHESIS ADFRJHSQMRbcudkw28/21/2024 6:01 PM EDT Breast cancer screening by mammogram from Last 3 Months or Most Recently Relevant to Health Maintenance Results * Colonoscopy (08/25/2025 9:36 AM EDT)Anatomical RegionLateralityModality Endoscopy Narrative Authorizing ProviderResult TypeResult StatusCamwilda Campbell MDENDOSCOPY PROCEDURE ORDERABLESFinal Result * (ABNORMAL) CBC and differential (07/19/2025 1:03 PM EDT)ComponentValueRef RangeTest MethodAnalysis TimePerformed AtPathologist SignatureWBC5.53.4 - 10.8 x10E3/uLLABCORPRBC3.69(L)3.77 - 5.28 x10E6/iYZWJUUSBWig89.511.1 - 15.9 g/dL WPANQYPOzz24.234.0 - 46.6 %SDGUIIJUEX7759 - 97 dOOJWMRKNXXZ68.226.6 - 33.0 pg XYLCYCJQUIN95.731.5 - 35.7 g/zUXPXANPJBAU62.711.7 - 15.4 %JPSAQRLKodoyjghc054 150 - 450 x10E3/bHLVNUPQHIpldgjxsqsz33Nvw Estab. %ZXIYVSQVoyrnf19Cpb Estab. % LIYSCAQFfkzevxor4Ykb Estab. %RTUPIANExe1Sex Estab. %PSXCYSHDinso4Ryo Estab. % LABCORPNeutrophils Abs3.41.4 - 7.0 x10E3/uLLABCORPLymphs Abs1.70.7 - 3.1 x10E3/uLLABCORPMonocytesAbs0.40.1 - 0.9 x10E3/uLLABCORPEos Abs0.10.0 - 0.4 x10E3/uLLABCORPBaso Abs0.00.0 - 0.2 x10E3/uLLABCORPImmature Nlwogkmsrmvk4Wsk Estab. %LABCORPImmature Grans Abs0.00.0 - 0.1 x10E3/uLLABCORPSpecimen (Source) Anatomical Location / LateralityCollection Method / VolumeCollection Time Received TimeBloodVenous blood specimen / Mykybme1107/19/2025 1:03 PM EDT 07/19/2025 Narrative [facility] - 07/20/2025 6:06 AM EDT Performed at: - [facility] [address], [address], [place], [place] ??[id number] Mold Sheet Cleaner: Matt Caal MD, Phone: ??[phone] Authorizing ProviderResult TypeResult StatusJarvis Collins MDLAB BLOOD ORDERABLES Final ResultPerforming OrganizationAddressCity/State/ZIP CodePhone Number [facility] * TSH (07/19/2025 1:03 PM EDT)ComponentValueRef RangeTest MethodAnalysis Time Performed AtPathologist SignatureTSH0.7320.450 - 4.500 uIU/mLLABCORPSpecimen (Source)Anatomical Location / LateralityCollection Method / VolumeCollection TimeReceived TimeBloodVenous blood specimen / Kltvovz4007/19/2025 1:03 PM EDT 07/19/2025 Narrative [facility] - 07/20/2025 6:06 AM EDT Performed at: - [facility] [place] [address], [address], [place], [place] ??[id number] Mold Sheet Cleaner: Matt Caal MD, Phone: ??[phone] Authorizing ProviderResult TypeResult StatusJarvis Collins MDLAB BLOOD ORDERABLES Final ResultPerforming OrganizationAddressCity/State/ZIP CodePhone Number [facility] * T4, free (07/19/2025 1:03 PM EDT)ComponentValueRef RangeTest MethodAnalysis TimePerformed AtPathologist MdvvvznqeU6Sqtm(Direct)1.390.82 - 1.77 ng/dL [facility]PSpecimen (Source)Anatomical Location / LateralityCollection Method / VolumeCollection TimeReceived TimeBloodVenous blood specimen / Unknown 07/19/2025 1:03 PM EDT07/19/2025 Narrative [facility] - 07/20/2025 6:06 AM EDT Performed at: - [facility] [address], [address], [place], [place] ??[id number] Mold Sheet Cleaner: Matt Caal MD, Phone: ??[phone] Authorizing ProviderResult TypeResult StatusRobert L Hill MDLAB BLOOD ORDERABLES Final ResultPerforming OrganizationAddressCity/State/ZIP CodePhone Number [facility] * Lipid panel (07/19/2025 1:03 PM EDT)ComponentValueRef RangeTest MethodAnalysis TimePerformed AtPathologist SignatureCholesterol, Wyvqs425355 - 199 mg/dL UHYQMCEJrzicgdptedec527 - 149 mg/dLLABCORPHDL Agklqyztkfr42>39 mg/dLLABCORP VLDL Cholesterol Yzk334 - 40 mg/dLLABCORPLDL Chol Calc (NIH)870 - 99 mg/dL [facility]ABC[facility]PSpecimen (Source)Anatomical Location / LateralityCollection Method / VolumeCollection TimeReceived TimeBloodVenous blood specimen / Unknown 07/19/2025 1:03 PM EDT07/19/2025 Narrative [facility] - 07/20/2025 6:06 AM EDT Performed at: [address] ??[id number] Mold Sheet Cleaner: Rodrigo Pablo PhD, Phone: ??[phone] Authorizing ProviderResult TypeResult StatusJarvis WARD BLOOD ORDERABLES Final ResultPerforming OrganizationAddressCity/State/ZIP CodePhone Number [facility] * Comprehensive metabolic panel (07/19/2025 1:03 PM EDT)ComponentValueRef Range Test MethodAnalysis TimePerformed AtPathologist IhrcmxadpLbslxdi7332 - 99 mg/vZZUTEWGSZSH107 - 27 mg/dLLABCORPCreat0.790.57 - 1.00 mg/gYZZKOFDCUZSB62>59 mL/min/1.73LABCORPBUN/Creat Avuuz0419 - 39DVFOPLMAgltxo296236 - 144 mmol/L [facility]PPotassium4.43.5 - 5.2 mmol/BOQUCAGOItxbdiqn66339 - 106 mmol/[facility] Carbon Mvirswu7218 - 29 mmol/LLABCORPCalcium9.18.7 - 10.3 mg/dLLABCORPProtein Total6.56.0 - 8.5 g/dLLABCORPAlbumin4.23.9 - 4.9 g/dLLABCORPGlobulin Total2.3 1.5 - 4.5 g/dLLABCORPBili Total0.40.0 - 1.2 mg/dLLABCORPAlk Mcokozpnyfx0813 - 121 IU/IGBNHRKSSRP0835 - 59 IU/YDOCAVAYLVR501 - 35 IU/[facility]PSpecimen (Source)Anatomical Location / LateralityCollection Method / VolumeCollection TimeReceived TimeBloodVenous blood specimen / Idylwwn4707/19/2025 1:03 PM EDT 07/19/2025 Narrative [facility] - 07/20/2025 6:06 AM EDT Performed at: 01 - [facility] [place] [address], [address], [place], [place] ??[id number] Mold Sheet Cleaner: Matt Caal MD, Phone: ??[phone] Authorizing ProviderResult TypeResult StatusRobarnel Collins MDLAB BLOOD ORDERABLES Final ResultPerforming OrganizationAddressCity/State/ZIP CodePhone Number [facility] * Bilateral screening mammogram with tomosynthesis (07/22/2024 6:01 PM EDT) Anatomical RegionLateralityModalityBreastBilateralMammographySpecimen (Source) Anatomical Location / LateralityCollection Method / VolumeCollection Time Received Time07/28/2024 9:25 AM EDT Impressions 07/28/2024 10:18 AM EDT BIRADS 1 - Negative Follow-up: ??Routine Screening Mamm Board Certified Radiologists. ??Accredited by the ACR and FDA. MAMMOGRAPHY IS VERY IMPORTANT TO YOUR HEALTH. ??THE [place] [employer] SOCIETY GUIDELINES RECOMMEND THAT WOMEN 40 YEARS OF AGE AND OLDER SHOULD HAVE A MAMMOGRAM EVERY YEAR. A REMINDER LETTER WILL BE SENT AT THE APPROPRIATE TIME. ??THIS FACILITY UTILIZES A REMINDER SYSTEM TO ENSURE ALL PATIENTS RECEIVE REMINDER NOTIFICATIONS AT THE APPROPRIATE TIME BASED ON THE RECOMMENDATIONS OF THIS EXAM. THIS INCLUDES REMINDERS FOR ROUTINE SCREENING MAMMOGRAMS, DIAGNOSTIC MAMMOGRAMSIN WHICH THE PATIENT IS ASKED TO RETURN FOR ADDITIONAL VIEWS, OR OTHER BREAST IMAGING INTERVENTIONSWHEN APPROPRIATE. THE PATIENT WILL BE PLACED IN THE APPROPRIATE REMINDER SYSTEM INCLUDING A REMINDER AT THE APPROPRIATE TIME FOR ANY PENDING ADDITIONAL VIEWS. TRANSCRIBED BY: ? ELECTRONICALLY SIGNED BY: Maurilio Guy MD Narrative 07/28/2024 10:18 AM EDT EXAMINATION: BI MAMMOGRAM SCREENING TOMOSYNTHESIS BILATERAL CLINICAL HISTORY:breast cancer screening COMPARISON: June 26, 2023. RESULT: Density: There are scattered areas of fibroglandular density Overall appearance is stable. There is no suspicious mass, asymmetry, architectural distortion, or calcification Procedure Note Maurilio Guy MD - 07/28/2024 EXAMINATION: BI MAMMOGRAM SCREENING TOMOSYNTHESIS BILATERAL CLINICAL HISTORY:breast cancer screening COMPARISON: June 26, 2023. RESULT: Density: There are scattered areas of fibroglandular density Overall appearance is stable. There is no suspicious mass, asymmetry, architectural distortion, or calcification IMPRESSION: BIRADS 1 - Negative Follow-up: Routine Screening Mamm Board Certified Radiologists. Accredited by the ACR and FDA. MAMMOGRAPHY IS VERY IMPORTANT TO YOUR HEALTH. THE [place] [employer] SOCIET[employer] GUIDELINES RECOMMEND THAT WOMEN 40 YEARS OF AGE AND OLDER SHOULD HAVE AMAMMOGRAM EVERY YEAR. A REMINDER LETTER WILL BE SENT AT THE APPROPRIATE TIME. THIS FACILITYUTILIZES A REMINDER SYSTEM TO ENSURE ALL PATIENTS RECEIVE REMINDERNOTIFICATIONS AT THE APPROPRIATE TIME BASED ON THE RECOMMENDATIONS OF THISEXAM. THIS INCLUDES REMINDERS FOR ROUTINE SCREENING MAMMOGRAMS, DIAGNOSTICMAMMOGRAMS IN WHICH THE PATIENT IS ASKED TO RETURN FOR ADDITIONAL VIEWS,OR OTHER BREAST IMAGING INTERVENTIONS WHEN APPROPRIATE. THE PATIENT WILLBE PLACED IN THE APPROPRIATE REMINDER SYSTEM INCLUDING A REMINDER AT THEAPPROPRIATE TIME FOR ANY PENDING ADDITIONAL VIEWS. TRANSCRIBED BY: ELECTRONICALLY SIGNED BY: Maurilio Guy MD Authorizing ProviderResult TypeResult StatusRobarnel Collins MDIMUli BI PROCEDURES Final Result from Last 3 Months or Most Recently Relevant to Health Maintenance Insurance Advance Directives TypeDate RecordedPatient RepresentativeExplanationAdvance Directives and Living Will04/12/2025 8:55 [id number]/Leonarda Care Teams Team MemberRelationshipSpecialtyStart DateEnd Jarvis Collins MD [address] [place] [address] PCP - GeneralInternal Medicine06/19/23 David Khan DPM [address] [phone] Referring PhysicianPodiatry06/22/24 Young Benoit DO [address] [phone] Referring PhysicianNeurolog12/29/24
--- OUTSIDE RECORDS SUMMARY | 2025-09-22 20:56 | XMS_ITS | Clinical Summary ---
Author Organization [facility] Address [address] 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 As directed.Active levothyroxine (Synthroid, Levoxyl) 112 mcg tablet Take 1 tablet (112 mcg) by mouth once daily in the morning. Take before meals. Active nitroglycerin (Nitrostat) 0.[address] 1 tablet (0.4 mg) under the tongue every 5 minutes if needed for chest pain (Report to the ERor call 911 after the third dose.).Active sacubitriL-valsartan (Entresto) 24-26 mg tablet Take 1 tablet by mouth 2 times a day.09/20/2021ctive clopidogrel (Plavix) 75 mg tablet Indications:History of PTCATAKE ONE TABLET BY MOUTH DAILY 90 tablet ctive gabapentin (Neurontin) 300 mg capsule Take 1 capsule (300 mg) by mouth 2 times a day.Active citalopram (CeleXA) 40 mg tablet Take 1 tablet (40 mg) by mouth once daily.Active carvedilol (Coreg) 3.125 mg tablet Indications:Primary hypertensionTAKE 1 TABLET BY MOUTH TWICE A DAY WITH A MEAL 180 tablet 309/17/2024Active semaglutide, weight loss, (Wegovy) 0.5 mg/0.5 mL pen injector Inject 0.5 mg under the skin 1 (one) time per week.12/03/2024tive atorvastatin (Lipitor) 40 mg tablet Indications:Mixed hyperlipidemiaTake 1 tablet (40 mg) by mouth once daily. 90 tablet 304504/6Active Active Problems ProblemNoted DateDiagnosed DateBMI 39.0-39.9,adult01/06/2025typical chest pain 01/06/2025Mitral valve birshmlfernoc37/07/2024 Assessment & Plan (07/08/2024 2:04 PM EDT): January 2023 TTE moderate MR Aooxkvz2901/23/2024Former sxatnw7501/23/2024AD (coronary artery disease)12/18/2023 Assessment & Plan (07/08/2024 2:02 PM EDT): April 07, [address] presented with acute inferior CT. At that time had PCI/[place] proximal RCA with IVUS guidance and provisional PTCA PLV. August 23, 2021 mid RCA 50% with negative IFR after patent stent. Mild/moderate left main with IVUS 40% MLA 2.5 x 2.5 with reference size 4 mm. OM1/mid circumflex PCI/[place] 2.5 x 15 mm Current daily activity greater than 4 METS without concerning symptoms Difficulty pvuouvcjq04/17/2024History of PTCA12/18/2023History of ST elevation myocardial infarction (STEMI)12/18/20238602Jlnigzxqtknn34/17/2024 Assessment & Plan (07/08/2024 2:03 PM EDT): On high intensity statin July 2024 LDL 91, HDL 57 Xfvnemrxxkjz95/17/2024 Assessment & Plan (07/08/2024 2:03 PM EDT): Optimal in office Ischemic yretlzeaqhgowt81/17/2024 Assessment & Plan (07/08/2024 2:04 PM EDT): ICM HF improved EF 50-January TTE Aug 2021 cath EF 35% Nov 2021 TTE EF 55% Stage 1 chronic kidney hqkuaum2912/18/2023 Resolved Problems ProblemNoted DateDiagnosed DateResolved DateBMI 40.0-44.9, adult07/08/2024 01/06/2025 Assessment & Plan (07/08/2024 2:04 PM EDT): Reviewed the merits of healthy lifestyle choices on overall cardiovascular health. CHF (NYHA class III, ACC/AHA stage C)Hypersomnolence /06/2024Sleep apnea Family History Medical HistoryRelationNameCommentsMIFatherNo Known ProblemsMotherRelationName StatusCommentsFatherMother Social History Tobacco UseTypesPacks/DayYears UsedDateSmoking Tobacco: FormerCigarettesQuit: 2001Smokeless Tobacco: NeverAlcohol UseStandard Drinks/WeekCommentsYes0 (1 standard drink = 0.6 oz pure alcohol)rarelyCommentsUnknownSex and Gender InformationValueDate RecordedSex Assigned at BirthNot on fileLegal SexFemale 10/27/2022 5:12 PM ESTGender IdentityNot on fileSexual OrientationNot on file Last Filed Vital Signs Vital SignReadingTime TakenCommentsBlood Zhaditvy152/70001/06/2025 11:42 AM EST Oupim8849/05/2025 11:42 AM ESTTemperature--Respiratory Rate--Oxygen Saturation-- Inhaled Oxygen Concentration--Xjiacv29.3 kg (216 lb 12.8 oz)01/06/2025 11:42 AM LFZOthmrl667.5 cm (5' 2 )01/06/2025 11:42 AM ESTBody Mass Index39.65001/06/2025 11:42 AM EST Plan of Treatment DateTypeDepartmentCare Team (Latest Contact Info)Zxxcanwowgo15/03/2025 11:30 AM ESTOffice Visit [facility] [address] [facility] [address] [place] [address] Tracy, Dorie K, INDEPENDENT DRIVER-LEADITE HEATER [address] [facility] [address] [place] [id number] Health MaintenanceDue DateLast DoneCommentsCT Gqsfdmgdkuhv1961Creatinine Level1961FIT-DNA (Cologuard)1960FIT1960HIV Agkialvds1960 Potassium Level05/13/19618352Dmmhfxletpmjf1961MMR Vaccines (1 of 1 - Standard series)2Diabetes Praamkmzk96/12/1979Hepatitis C Tuctucael25/12/1979CKD: Urine Protein Wdtgpofuq28/12/1980Pneumococcal Vaccine (1 of 2 - PCV)1980 Cervical Cancer Aupyzribi49/12/1982HPV/Gkfvor6905/13/1982Pap Smear1982 DTaP/Tdap/Td Vaccines (1 - Tdap)1983Zoster Vaccines (1 of 2)2011RSV High Risk: (Elderly (60+) or Population) (1 - Risk 60-74 years 1-dose series)2021Influenza Vaccine (#1)/, 12/02/2020, 08/23/2020, Additional history xmxyrpJyneiurxb90/21/202508/, 07/22/2024, 06/26/2023, Additional history existsCOVID-19 Vaccine ( - 2024- season) 5Yearly Adult Vghieowj47/509/03/20241373Xcnopypancbocw15/25/2026 02/23/2025, 02/20/2024, 11/22/2021, Additional history existsTSH Level07/19/2026 07/19/2025, 01/18/2025, 07/02/2024, Additional history existsLipid Panel /, 04/24/20218874Kvpejbcoqls96olorectal Cancer Kzbwmbnuv06/24/2035HIB VaccinesAged OutNo longer eligible based on patient's age to complete this topicHPV VaccinesAged OutNo longer eligible based on patient's age to complete this topicHepatitis A VaccinesAged OutNo longer eligible based on patient's age to complete this topicHepatitis B VaccinesAged OutNo longer eligible based on patient's age to complete this topicIPV VaccinesAged OutNo longer eligible based on patient's age to complete this topicMeningococcal VaccineAged OutNo longer eligible based on patient's age to complete this topic Rotavirus VaccinesAged OutNo longer eligible based on patient's age to complete this topic Procedures Procedure NamePriorityDate/TimeAssociated DiagnosisCommentsTRANSTHORACIC ECHO (TTE) XWCTSSIGUntjlac39/25/2025 8:38 AM EDT Coronary artery disease, unspecified vessel or lesion type, unspecified whether angina present, unspecified whether [place] or transplanted heart History of PTCA History of ST elevation myocardial infarction (STEMI) Ischemic cardiomyopathy Primary hypertension Nonrheumatic mitral valve regurgitation LIPID XWEUPVsnrkhr21/24/2021 11:34 AM EDT from Last 3 Months or Most Recently Relevant to Health Maintenance Results * TRANSTHORACIC ECHO (TTE) COMPLETE (02/23/2025 8:38 AM EDT)ComponentValueRef RangeTest MethodAnalysis TimePerformed AtPathologist SignatureAV mn uuak9glNp SYNGOAV pk vel1.51m/sSYNGOLV Biplane EF46%SYNGOLVOT diam2.12cmSYNGOMV E/A ratio0.86SYNGOTricuspid annular plane systolic excursion1.7cmSYNGOMV avg E/e' ratio13.43SYNGOLA vol index A/L28.6ml/p7OLAAOIH EF58%SYNGORV free wall pk S' 9.89cm/fPRXDNQIKT34.9obMwCQKKPALGYn0.19cmSYNGOAortic Valve Area by Continuity of Peak Velocity2.01pq5BKSRIKA pk xbbt8wtMhBNTUFZythiy Valve Area by Continuity of VTI2.89zr4XIPMTJV A4C EF46.3SYNGOSpecimen (Source)Anatomical Location / LateralityCollection Method / VolumeCollection TimeReceived Time 02/23/2025 7:49 AM EDT Narrative SYNGO - 02/23/2025 1:42 PM EDT ?[facility] [address] [place] [address], [place] [address] ? TRANSTHORACIC ECHOCARDIOGRAM REPORT Patient Name: ? RACHAEL Crys HOPKINS ? Reading Physician: ?[id number] [place] ?IbrahimMD, FACC Study Date: ? 02/23/2025 ? Ordering Provider: ?[id number] IVAN S ?EDGAR MRN/PID: ?[id number] ?Fellow: Accession#: ? [id number] ?Nurse: Date of /Age: ??1960 / 64 ?Call Center Dispatcher: ?Isabel Brasee RDMS, ?years ? RDCS, RVT Gender Assigned at ??F ? Additional Staff: : Height: ? 157.48 cm ? Admit Date: Weight: ? 97.98 kg ?Admission Status: ? Outpatient BSA / BMI: ?1.98 m2 / 39.51 ? Department Location: ??[facility] ?kg/m2 ? [place] Blood Pressure: 132 /70 mmHg Study Type: ?TRANSTHORACIC ECHO (TTE) COMPLETE Diagnosis/ICD: Atherosclerotic heart disease of [place] coronary artery without ? angina pectoris-I25.10; Old myocardial infarction-I25.2; ? Essential (primary) hypertension-I10; Ischemic ? cardiomyopathy-I25.5 Indication: ?CAD, CP, HTN, HLD, ICM, MR, PTCA and STEMI CPT Codes: ? Echo Complete w Full Doppler-[id number] Study Detail: The following Echo studies were performed: 2D, M-Mode, Doppler and ?color flow. PHYSICIAN INTERPRETATION: Left Ventricle: Left ventricular [...] has lessened. QUANTITATIVE DATA SUMMARY: 2D MEASUREMENTS: ? Normal Ranges: Ao Root d: ? 2.60 cm ? (2.0-3.7cm) LAs: ? 3.25 cm ? (2.7-4.0cm) RVIDd: ? 3.25 cm ? (0.9-3.6cm) IVSd: ?1.15 cm ? (0.6-1.1cm) LVPWd: ? 1.26 cm ? (0.6-1.1cm) LVIDd: ? 4.19 cm ? (3.9-5.9cm) LVIDs: ? 2.88 cm LV Mass Index: ?? 90.3 g/m2 LVEDV Index: ? 27.94 ml/m2 LV % FS ?31.2 % LEFT ATRIUM: ? Normal Ranges: LA Vol A4C: ? 56.3 ml ?(22+/-6mL/m2) LA Vol A2C: ? 55.4 ml LA Vol BP: ?56.5 ml LA Vol Index A4C: 28.5ml/m2 LA Vol Index A2C: 28.1 ml/m2 LA Vol Index BP: ??28.6 ml/m2 LA Vol A4C: ? 51.4 ml LA Vol A2C: ? 51.7 ml LA Vol Index BSA: 26.1 ml/m2 RIGHT ATRIUM: ? Normal Ranges: RA Vol A4C: ?30.4 ml ?(8.3-19.5ml) RA Vol Index A4C: ??15.4 ml/m2 RA Area A4C: ? 12.4 cm2 RA Major [place] A4C: 4.3 cm LV SYSTOLIC FUNCTION: ? Normal Ranges: EF-A4C View: 46 % (>=55%) EF-A2C View: ?50 % EF-Biplane: ? 46 % EF-Visual: ?58 % LV EF Reported: 58 % LV DIASTOLIC FUNCTION: ? Normal Ranges: MV Peak E: ? 1.13 m/s ?(0.7-1.2 m/s) MV Peak A: ? 1.31 m/s ?(0.42-0.7 m/s) E/A Ratio: ? 0.86 ?(1.0-2.2) MV e' 0.084 m/s (>8.0) MV lateral e' ?0.10 m/s MV medial e' ? 0.07 m/s E/e' Ratio: 13.43 (<8.0) PulmV Sys Robert: ? 53.56 cm/s PulmV [place] Robert: ?43.21 cm/s PulmV S/D Robert: ? 1.24 PulmV A Revs Robert: ?29.22 cm/s PulmV A Revs Dur: ?159.85 msec MITRAL VALVE: ?Normal Ranges: MV Vmax: 1.35 m/s (<=1.3m/s) MV peak P.3 mmHg (<5mmHg) MV mean P.3 mmHg (<48mmHg) MV VTI: ? 34.55 cm (10-13cm) MV DT: ?148 msec (150-240msec) MV PHT: ? 43 msec ??(30-60msec) MVA by PHT: ?? 5.12 cm2 (4-6cm2) MITRAL INSUFFICIENCY: ? Normal Ranges: MR VTI: ? 193.65 cm MR Vmax: ?509.50 cm/s dP/dt: 548 mmHg/s (>1200mmHg/sec) AORTIC VALVE: ? Normal Ranges: AoV Vmax: 1.51 m/s (<=1.7m/s) AoV Peak P.1 mmHg (<20mmHg) AoV Mean PG: ? 5.0 mmHg (1.7-11.5mmHg) LVOT Max Robert: 0.93 m/s (<=1.1m/s) AoV VTI: ? 33.37 cm (18-25cm) LVOT VTI: ?22.41 cm LVOT Diameter: ? 2.12 cm ??(1.8-2.4cm) AoV Area, VTI: ? 2.37 cm2 (2.5-5.5cm2) AoV Area,Vmax: ? 2.18 cm2 (2.5-4.5cm2) AoV Dimensionless Index: 0.67 RIGHT VENTRICLE: RV Basal 2.81 cm RV Mid ?? 2.70 cm RV Major 7.0 cm TAPSE: ?? 17.1 mm RV s' ?0.10 m/s TRICUSPID VALVE/RVSP: ?Normal Ranges: Peak TR Velocity: ? 2.14 m/s Est. RA Pressure: ? 5 mmHg RV Syst Pressure: 23 mmHg (< 30mmHg) IVC Diam: ? 1.40 cm PULMONARY VEINS: PulmV A Revs Dur: 159.85 msec PulmV A Revs Robert: 29.22 cm/s PulmV [place] Robert: ?? 43.21 cm/s PulmV S/D Robert: ?1.24 PulmV Sys Robert: ?53.56 cm/s AORTA: Asc Ao Diam 2.70 cm [id number] Lindy Daly MD, [facility] Electronically signed on 02/23/2025 at 1:42:36 PM Final Procedure Note Lindy Daly MD - 02/23/[address], Suite [facility], [place] [address] TRANSTHORACIC ECHOCARDIOGRAM REPORT Patient Name: RACHAEL HOPKINS Reading Physician: [id number] Daly MD,[facility] Study Date: 02/23/2025 Ordering Provider: [id number] Shane MEJIA MRN/PID: [id number] Fellow: Nurse: Date of /Age: 605/13/1960 Call Center Dispatcher: Isabel Hunter, years RDCS, RVT Gender Assigned at F Additional Staff: : Height: 157.48 cm Admit Date: Weight: 97.98 kg Admission Status: Outpatient BSA / BMI: 1.98 m2 / 39.51 Department Location: [facility] kg/m2 [place] Blood Pressure: 132 /70 mmHg Study Type: TRANSTHORACIC ECHO (TTE) COMPLETE Diagnosis/ICD: Atherosclerotic heart disease of [place] coronary arterywithout angina pectoris-I25.10; Old myocardial infarction-I25.2; Essential (primary) hypertension-I10; Ischemic cardiomyopathy-I25.5 Indication: CAD, CP, HTN, HLD, ICM, MR, PTCA and STEMI CPT Codes: Echo Complete w Full Doppler-[id number] Study Detail: The following Echo studies were performed: 2D, M-Mode,Doppler and color flow. PHYSICIAN INTERPRETATION: Left Ventricle: Left ventricular ejection fraction is normal, by visualestimate at 55-60%. There are no regional wall motion abnormalities. Theleft ventricular cavity size is normal. There is mild increased septalthickness. There is left ventricular concentric remodeling. SpectralDoppler shows a Grade I (impaired relaxation pattern) of left ventriculardiastolic filling with normal left atrial filling pressure. Mildconcentric left ventricle hypertrophy. Left Atrium: The left atrial size is normal. Right Ventricle: The right ventricle is normal in size. There is normalright ventricular global systolic function. Right Atrium: The right atrial size is normal. Aortic Valve: The aortic valve is trileaflet. There is mild aortic valve thickening. There is evidence of mild aortic valve stenosis. The aortic valve dimensionless index is 0.67. There is no evidence ofaortic valve regurgitation. The peak instantaneous gradient of the aorticvalve is 9 mmHg. The mean gradient of the aortic valve is 5 mmHg. Mitral Valve: The mitral valve is mildly thickened. The peak instantaneous gradient of the mitral valve is 7 mmHg. There is mild mitral valveregurgitation. Tricuspid Valve: The tricuspid valve is structurally normal. There istrace tricuspid regurgitation. Pulmonic Valve: The pulmonic valve is structurally normal. There is noindication of pulmonic valve regurgitation. Pericardium: No pericardial effusion noted. Aorta: The aortic root is normal. Systemic Veins: The inferior vena cava appears normal in size. In comparison to the previous echocardiogram(s): When compared to studyfrom 02/20/2024, ejection fraction has normalized, the amount of mitralregurgitation has lessened. CONCLUSIONS: 1. Left ventricular ejection fraction is normal, by visual estimate at55-60%. 2. Spectral Doppler shows a Grade I (impaired relaxation pattern) of left ventricular diastolic filling with normal left atrial filling pressure. 3. Mild concentric left ventricle hypertrophy. 4. There is normal right ventricular global systolic function. 5. Mild mitral valve regurgitation. 6. Mild aortic valve stenosis. 7. When compared to study from 02/20/2024, ejection fraction hasnormalized, the amount of mitral regurgitation has lessened. [...] RA Area A4C: 12.4 cm2 RA Major [place] A4C: 4.3 cm LV SYSTOLIC FUNCTION: Normal [...] AoV Mean P.0 mmHg (1.7-11.5mmHg) LVOT Max Robetr: 0.93 m/s (<=1.1m/s) AoV VTI: 33.37 cm [...] cm/s AORTA: Asc Ao Diam 2.70 cm [id number] Lindy Daly MD, [facility] Electronically signed on 02/23/2025 at 1:42:36 PM Final Authorizing ProviderResult TypeResult StatusWitiburcio Mejia DOCV ECHO PROCEDURESFinal ResultPerforming OrganizationAddressCity/State/ZIP CodePhone Number SYNGO * Lipid Panel (04/24/2021 11:34 AM EDT)ComponentValueRef RangeTest Method Analysis TimePerformed AtPathologist NqpudzjyrGzyldkwexcc9958 - 199 mg/dL [facility]: . ?AGE ?DESIRABLE ?? BORDERLINE HIGH ?? HIGH 0-19 Y 0 - 169 170 - 199 >/= 200 20-24 Y 0 - 189 190 - 224 >/= 225 >24 Y 0 - 199 200 - 239 >/= 240 All ranges are based on fasting samples. Specific therapeutic targets will vary based on patient-specific cardiac risk. . Pediatric guidelines reference:Pediatrics 2011, 128(S5). Adult guidelines reference: NCEP ATPIII Guidelines, ??SUNIL 2001, 258:2486-97 . Venipuncture immediately after or during the administration of Metamizole may lead to falsely low results. Testing should be performed immediately prior to Metamizole dosing. HDL43.0mg/dLH[facility] LABComment: . ?AGE ?VERY LOW ?? LOW ? NORMAL ?HIGH ?? 0-19 Y < 35 < 40 40-45 ---- 20-24 Y ---- < 40 >45 ---- >24 Y ---- < 40 40-60 >60 . Cholesterol/HDL Ratio3.2ERESNICK [facility] LABComment: REF VALUES DESIRABLE < 3.4 HIGH RISK > 5.0 VMG677 - 99 mg/dLH[facility] LABComment: . ? NEAR ?BORD ?AGE ?DESIRABLE ??OPTIMAL ?HIGH ? HIGH ? VERY HIGH 0-19 Y 0 - 109 --- 110-129 >/= 130 ---- 20-24 Y 0 - 119 --- 120-159 >/= 160 ---- >24 Y 0 - 99 100-129 130-159 160-189 >/=190 . TPEN401 - 40 mg/dLH[facility] YWJLyrfclzinbixx384 - 149 mg/dLH[facility] LABComment: . ?AGE ?DESIRABLE ?? BORDERLINE HIGH ?? HIGH ? VERY HIGH 0 D-90 D ?19 - 174 ? ---- ? ---- ?---- 91 D- 9 Y 0 - 74 75 - 99 >/= 100 ---- 10-19 Y 0 - 89 90 - 129 >/= 130 ---- 20-24 Y 0 - 114 115 - 149 >/= 150 ---- >24 Y 0 - 149 150 - 199 200- 499 >/= 500 . Venipuncture immediately after or during the administration of Metamizole may lead to falsely low results. Testing should be performed immediately prior to Metamizole dosing. Specimen (Source)Anatomical Location / LateralityCollection Method / Volume Collection TimeReceived Time04/24/2021 11:34 AM EDT04/24/2021 6:51 PM EDT Narrative Authorizing ProviderResult TypeResult StatusDorie Tracy INDEPENDENT DRIVER-CNPLAB BLOOD ORDERABLESFinal ResultPerforming OrganizationAddressCity/State/ZIP CodePhone Number [facility] from Last 3 Months or Most Recently Relevant to Health Maintenance Insurance Care Teams Team MemberRelationshipSpecialtyStart DateEnd Jarvis Collins MD [address] [place] [phone] PCP - Eomrcjt58/10/21
== END 2025-09-22 20:52 | disposition home or self-care (01) ==
PROVIDERS: PCP Nurse Practitioner Family; Visit Provider Nurse Practitioner Family
DX: G47.33 Obstructive sleep apnea (adult) (pediatric) (principal); F51.01 Primary insomnia
CPT/HCPCS: 95811

== ENCOUNTER 2025-10-06 19:51 | Emergency (ER) | payer OTHER, SELFPAY ==
--- OUTSIDE RECORDS SUMMARY | 2025-10-04 11:30 | XMS_ITS | Encounter Summary ---
Author Organization [facility] Address [address] [place] [address] Phone Care Team Providers Care Treating Inspector Name Role Phone Jarvis Collins MD Primary Care Provider [phone] Reason for Referral * Consultation (Routine) - AuthorizedSpecialtyDiagnoses / ProceduresReferred By ContactReferred To ContactCardiology Diagnoses Coronary artery disease, unspecified vessel or lesion type, unspecified whether angina present, unspecified whether [place] or transplanted heart Procedures Follow Up In Cardiology Dorie Tracy APRN-CNP [address]03 [facility] [address], [address] [address] Phone: tel: fax: James Mejia DO [address]03 [facility] [address], [address] [address] Phone: tel: fax: Referral IDStatusReasonStart DateExpiration DateVisits RequestedVisits [id number]/[id number]/3/202611 Reason for Visit * ReasonCommentsFollow-up8 months follow up Coronary artery disease, unspecified vessel or lesion type, unspecified whether angina present, unspecified whether [place] or transplanted heart * Consultation (Routine) - AuthorizedSpecialtyDiagnoses / ProceduresReferred By ContactReferred To ContactCardiology Diagnoses Coronary artery disease, unspecified vessel or lesion type, unspecified whether angina present, unspecified whether [place] or transplanted heart Procedures Follow Up In Cardiology James Mejia DO [address], [address] [address] Phone: tel: fax: Dorie Tracy, SAFETY CLOTHING AND EQUIPMENT DEVELOPER-DIGITAL COMPOSER [address]03 [facility] [address], [address] [address] Phone: tel: fax: Referral IDStatusReasonStart DateExpiration DateVisits RequestedVisits [id number]/5/20252/ Encounter Details DateTypeDepartmentCare Team (Latest Contact Info)Enepinqzkls93/03/2025 11:30 AM ESTOffice Visit [facility] [address] [phone] Dorie Tracy, SAFETY CLOTHING AND EQUIPMENT DEVELOPER-DIGITAL COMPOSER [address] [address] Ischemic cardiomyopathy (Primary Dx); Coronary artery disease, unspecified vessel or lesion type, unspecified whether angina present, unspecified whether [place] or transplanted heart; Primary hypertension; Mixed hyperlipidemia; Nonrheumatic mitral valve regurgitation; BMI 37.0-37.9, adult Discharge Disposition: Home Social History Tobacco UseTypesPacks/DayYears UsedDateSmoking Tobacco: FormerCigarettesQuit: 2001Smokeless Tobacco: NeverAlcohol UseStandard Drinks/WeekCommentsYes0 (1 standard drink = 0.6 oz pure alcohol)rarelyCommentsUnknownSex and Gender InformationValueDate RecordedSex Assigned at BirthNot on fileLegal SexFemale 10/27/2022 5:12 PM ESTGender IdentityNot on fileSexual OrientationNot on file documented as of this encounter Last Filed Vital Signs Vital SignReadingTime TakenCommentsBlood Qhcokemj628/6210/04/2025 11:42 AM EST Luzdq144610/04/2025 11:42 AM ESTTemperature--Respiratory Rate--Oxygen Saturation-- Inhaled Oxygen Concentration--Fzbtmu53.4 kg (206 lb)10/04/2025 11:42 AM EST Ahzznk674.5 cm (5' 2 )10/04/2025 11:42 AM ESTBody Mass Index37.6810/04/2025 11:42 AM ESTdocumented in this encounter Functional Status * BPAnswerDate of ZclzdvhxnuYqxmxw823/6210/04/2025 11:42 AM Rg Ho MA * PulseAnswerDate of SmrqmtweppLzbrif4099/03/2025 11:42 AM Rg Ho MA * Communicable Disease ScreeningQuestionAnswerDate of AssessmentAuthorDo you have any of the following new or worsening symptoms?None of these10/04/2025 11:27 AM Mary Squires documented as of this encounter Patient Instructions * Patient Instructions* JOURDAN Sheridan - 10/04/2025 11:30 AM EST Please bring all medicines, vitamins, [...] Current treatment clinically warranted and to continue without modifications. 2. Return for follow-up; in the interim, contact the office if new symptoms arise. Dr. Mejia 6 months documented in this encounter Progress Notes * JOURDAN Sheridan - 10/04/2025 11:30 AM EST Chief Complaint I think I am doing just fine Reason for Visit 6-month follow-up Patient presents to the office today for outpatient follow-up for coronary artery disease, secondary prevention Last evaluated in clinic by Dr. Mejia January 2025 Presents today ambulatory with steady gait. Accompanied by patient She reports new diagnosis of neuropathy. In April 2025 had a orthopedic repair due to torn rotator cuff and bicep. Follows routinely with PCP. Labs July 2025 reviewed. History of Present Illness Patient is a pleasant 65-year-old female who presents to the office today where she has been actively working on weight loss, her weight is down 18 pounds and she feels much better . 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 She is doing chair yoga. Her prior angina symptom was indigestion pain, she denies any reoccurrence. No nitroglycerin use. Patient reports that overall has no complaint(s) of chest pain, chest pressure/discomfort, claudication, dyspnea, exertional chest pressure/discomfort, fatigue, irregular heart beat, and lower extremity edema Daily activity: > 4 METs Denies any change in exercise capacity or functional tolerance since last office visit. The importance of secondary prevention reviewed: HTN: Optimal HLD: Optimally treated DM: Denies Smoker: Denies (semaglutide is for weight loss) BMI: Reviewed the merits of healthy lifestyle choices on overall cardiovascular health. Review of Systems Cardiovascular: Negative for chest pain, dyspnea on exertion, irregular heartbeat, leg swelling, near-syncope, orthopnea, palpitations, paroxysmal nocturnal dyspnea and syncope. Visit Vitals BP 100/62 (BP Location: Left arm, Patient Position: Sitting) Pulse 80 Ht 1.575 m (5' 2 ) Wt 93.4 kg (206 lb) BMI 37.68 kg/m?? Smoking Status Former BSA 2.02 m?? Physical Exam Vitals and nursing note reviewed. HENT: Head: Normocephalic. Cardiovascular: Rate and Rhythm: Normal rate and regular rhythm. Heart sounds: Normal heart sounds. Pulmonary: Effort: Pulmonary effort is normal. Breath sounds: Normal breath sounds. Abdominal: Palpations: Abdomen is soft. Musculoskeletal: Right lower leg: No edema. Left lower leg: No edema. Skin: General: Skin is warm and dry. Neurological: General: No focal deficit present. Mental Status: She is alert. Psychiatric: Mood and Affect: Mood normal. Behavior: Behavior normal. ALLERGIES: Lisinopril, Metoclopramide, Penicillins, and Tramadol Current Outpatient Medications Medication Instructions albuterol 90 mcg/actuation inhaler 2 puffs atorvastatin (LIPITOR) 40 mg, oral, Daily carvedilol (COREG) 3.125 mg, oral, 2 times daily after meals citalopram (CELEXA) 40 mg, Daily clopidogrel (PLAVIX) 75 mg, oral, Daily levothyroxine (Synthroid, Levoxyl) 100 mcg tablet nitroglycerin (NITROSTAT) 0.4 mg, Every 5 min PRN ondansetron ODT (Zofran-ODT) 4 mg disintegrating tablet Every 8 hours as needed for nausea and vomiting pantoprazole (PROTONIX) 40 mg sacubitriL-valsartan (Entresto) 24-26 mg tablet 1 tablet, 2 times daily traZODone (Desyrel) 50 mg tablet Bedtime Wegovy 0.5 mg, Once Weekly Assessment: CAD (coronary artery disease) April 07, 2021 presented with acute inferior [place]. At that time had PCI/[place] proximal RCA with IVUS guidance and provisional PTCA PLV. August 23, 2021 mid RCA 50% with negative IFR after patent stent. Mild/moderate left main with IVUS 40% MLA 2.5 x 2.5 with reference size 4 mm. OM1/mid circumflex PCI/[place] 2.5 x 15 mm Current daily activity greater than 4 METS without concerning symptoms Hyperlipemia On high intensity statin July 2025 HDL 57, LDL 87 Hypertension Optimal in office Ischemic cardiomyopathy ICM HF improved EF 55-60% January 2025 TTE ([facility]) January 2024 TTE EF 50-55% Aug 2021 cath EF 35% Nov 2021 TTE EF 55% Mitral valve regurgitation January 2025 TTE MR mild BMI 37.0-37.9, adult Reviewed the merits of healthy lifestyle choices on overall cardiovascular health. Plan: Through informed decision making process incorporating patients unique circumstances, the followingtreatment plan will be initiated: 1. Prescription drug management of cardiovascular medication for efficacy, adherence to treatment, side effect assessment and polypharmacy. Current treatment clinically warranted and to continue without modifications. 2. Return for follow-up; in the interim, contact the office if new symptoms arise. Dr. Mejia 6 months Dorie Tracy MSN, SAFETY CLOTHING AND EQUIPMENT DEVELOPER-DIGITAL COMPOSER, PMHNP-[facility] [place], [place] Please excuse any errors in grammar or translation related to this dictation. Voice recognition software was utilized to prepare this document. documented in this encounter Miscellaneous Notes * Assessment & Plan Note - JOURDAN Sheridan - 10/06/2025 12:19 PM EST Associated Problem(s): BMI 37.0-37.9, adult Reviewed the merits of healthy lifestyle choices on overall cardiovascular health. * Assessment & Plan Note - JOURDAN Sheridan - 10/06/2025 12:18 PM EST Associated Problem(s): Mitral valve regurgitation January 2025 TTE MR mild * Assessment & Plan Note - JOURDAN Sheridan - 10/06/2025 12:18 PM EST Associated Problem(s): Ischemic cardiomyopathy ICM HF improved EF 55-60% January 2025 TTE (mLVH) January 2024 TTE EF 50-55% Aug 2021 cath EF 35% Nov 2021 TTE EF 55% * Assessment & Plan Note - JOURDAN Sheridan - 10/06/2025 12:17 PM EST Associated Problem(s): Hypertension Optimal in office * Assessment & Plan Note - JOURDAN Sheridan - 10/06/2025 12:17 PM EST Associated Problem(s): Hyperlipemia On high intensity statin July 2025 HDL 57, LDL 87 * Assessment & Plan Note - JOURDAN Sheridan - 10/06/2025 12:17 PM EST Associated Problem(s): CAD (coronary artery disease) April 07, 2021 presented with acute inferior [place]. At that time had PCI/[place] proximal RCA with IVUS guidance and provisional PTCA PLV. August 23, 2021 mid RCA 50% with negative IFR after patent stent. Mild/moderate left main with IVUS 40% MLA 2.5 x 2.5 with reference size 4 mm. OM1/mid circumflex PCI/[place] 2.5 x 15 mm Current daily activity greater than 4 METS without concerning symptoms documented in this encounter Plan of Treatment DateTypeDepartmentCare Team (Latest Contact Info)Nothnqlkkun27/05/2026 10:50 AM EDTOffice Visit [facility] 703 [facility] [address] [place] [id number] James Mejia DO [address]03 [facility] [address] [place] [address] documented as of this encounter Visit Diagnoses Diagnosis Ischemic cardiomyopathy- Primary Other specified forms of chronic ischemic heart disease Coronary artery disease, unspecified vessel or lesion type, unspecified whether angina present, unspecified whether [place] or transplanted heart Primary hypertension Unspecified essential hypertension Mixed hyperlipidemia Nonrheumatic mitral valve regurgitation BMI 37.0-37.9, adult documented in this encounter Care Teams Team MemberRelationshipSpecialtyStart DateEnd Date Jarvis Collins MD [address] [place] [id number] PCP - Uezixid91/10/21documented as of this encounter
[2025-10-06 19:58] VITALS: BP 144/88; PULSE 65; TEMP 36.6; O2SAT 99; BMI 37.1
--- NOTE | 2025-10-06 20:10 | CT_ITS ---
[address] [address] Patient Name: RACHAEL HOPKINS MRN: [id number] date: 1960 Sex: F Assigned Patient Location: ER Current Patient Location: ED.MAIN Accession/Order Number: [id number] Exam Date: 10/06/2025 20:22 Report Date: 10/06/2025 20:52 At the request of: JOSH MORTENSEN MD Procedure: CT abdomen pelvis wo con CT Abdomen and Pelvis withoutcontrast TECHNIQUE: Axial imaging with 2-D reconstruction. The CT exam was performed using one or more the following dose reduction techniques: Automated exposure control, adjustment of the MA and/or Kv according to patient size, or use of the iterative reconstruction technique. COMPARISON: None History: Lower abdominal and back pain. Urinary retention. LIMITATIONS: None LOWER THORAX Unremarkable LIVER: Unremarkable GALLBLADDER: Cholecystectomy clips identified. BILE DUCTS: No dilatation SPLEEN: Unremarkable PANCREAS: Unremarkable ADRENAL GLANDS: Unremarkable KIDNEYS:Unremarkable AORTA: No abdominal aortic aneurysm identified. Moderate volume of atherosclerosis of aorta and branches. RETROPERITONEUM: No significant retroperitoneal abnormalities identified. MESENTERY:Unremarkable STOMACH:Unremarkable SMALL BOWEL: The small bowel loops are nondistended. APPENDIX: The appendix is not seen. No pericecal inflammatory changes identified. COLON: Unremarkable URINARY BLADDER: Urinary bladder is unremarkable. REPRODUCTIVE SYSTEM: Reproductive structures are unremarkable. PNEUMOPERITONEUM: None PERITONEAL FLUID:None BONY STRUCTURES: Unremarkable ABDOMINAL WALL: Unremarkable CT/CT abdomen pelvis wo con IMPRESSION: No acute findings. Impression dictated by: Hamilton Holder M.D. 10/06/2025 8:52 PM Dictation Location: [employer] Electronically authenticated by: [id number] Y Date: 10/06/2025 20:52
--- NOTE | 2025-10-06 20:11 | ED_ITS ---
HPI HPI - General Adult General Chief complaint: Urogenital-Female Stated complaint: NOT ABLE TO PEE VERY MUCH Time Seen by Provider: 10/06/25 19:57 Source: patient Mode of arrival: Wheelchair Limitations: no limitations History of Present Illness HPI narrative: This 65-year-old female presents for evaluation of urinary frequency urgency and pain when she is able to urinate in her urethra and lower abdomen. This 65-year-old female who has a remote history of kidney stones presents for evaluation of urinary symptoms and pain over her bladder radiating into her low back. She is also nauseated. She has not vomited. She has not had any fevers but states she is chilly. The symptoms started abruptly earlier this evening. She has not had any diarrhea. She has no chest pain or shortness of breath. She denies seeing any blood in her urine. Related Data Home Medications ?Medication ?Instructions ?Recorded ?Confirmed amitriptyline 25 mg tablet mg 05/07/24 citalopram 20 mg tablet mg 05/07/24 clopidogrel 75 mg tablet 75 mg 05/07/24 gabapentin 300 mg capsule 300 mg 05/07/24 sacubitril 24 mg-valsartan 26 mg 1 tab 05/07/24 tablet (Entresto) atorvastatin 40 mg tablet mg 10/06/25 carvedilol 3.125 mg tablet mg 10/06/25 citalopram 40 mg tablet mg 10/06/25 levothyroxine 100 mcg tablet mcg 10/06/25 semaglutide (weight loss) 2.4 mg subcut 10/06/25 mg/0.75 mL subcutaneous pen injector (Wegovy) trazodone 50 mg tablet mg 10/06/25 Allergies Allergy/AdvReac Type Severity Reaction Status Date / Time Penicillins Allergy Severe Swelling Verified 10/06/25 20:01 of Lip/Tongue/Throat metoclopramide (From Reglan) Allergy Intermediate Swelling Verified 10/06/25 20:01 of Lip/Tongue/Throat Opioid HPI Opioid Management Most Recent Opioid Data: Last Pain Scale 9 Today, 19:58 Review of Systems ROS Status of ROS 10 or more systems reviewed and unremark able except as noted in history and below PFSH PFSH Social History Little interest or pleasure in doing things: not at all Feeling down, depressed, or hopeless: not at all Exam Narrative Exam Narrative: Vital signs and Nursing Notes reviewed: Patient is afebrile with a normal pulse, blood pressure is mildly elevated 144/88, she is not hypoxic with pulse ox of 99% on room air General: Awake, alert, oriented, mildly uncomfortable appearing overweight female no respiratory distress HEENT: Normocephalic atraumatic, mucous membranes are moist and pink, eyes are clear, normal conjunctiva, vision is grossly intact Neck: Supple, no meningeal signs, no anterior or posterior cervical lymphadenopathy Chest: Lungs are clear to auscultation with good air entry, there is no wheezing rhonchi or rales appreciated no accessory muscle use, patient is speaking in complete sentences-no chest wall tenderness to palpation CVS: Regular rate and rhythm S1-S2, no murmurs rubs or gallops, pulses are brisk and equal bilaterally ABD: Obese, soft, nondistended, there is tenderness over the urinary bladder, no CVA tenderness appreciated Extremities: Moving all extremities, no lower extremity tenderness or swelling noted, negative Homans' sign, pulses are brisk and equal bilaterally Skin: Normal in appearance without rash,pallor, petechiae or purpura Neuro: No focal deficits Constitutional Vital Signs, click to edit/add: Last Vital Signs Temp 97.8 F 10/06/25 19:58 Pulse 65 10/06/25 19:58 Resp 16 10/06/25 19:58 BP 144/88 H 10/06/25 19:58 Pulse Ox 99 10/06/25 19:58 O2 Del Method Room Air 10/06/25 19:58 Course Vital Signs Vital signs: Vital Signs Temperature 97.8 F 10/06/25 19:58 Pulse Rate 65 10/06/25 19:58 Respiratory Rate 16 10/06/25 19:58 Blood Pressure 144/88 H 10/06/25 19:58 Pulse Oximetry 99 10/06/25 19:58 Oxygen Delivery Method Room Air 10/06/25 19:58 Temperature 97.8 F 10/06/25 19:58 Pulse Rate 65 10/06/25 19:58 Respiratory Rate 16 10/06/25 19:58 Blood Pressure 144/88 H 10/06/25 19:58 Pulse Oximetry 99 10/06/25 19:58 Oxygen Delivery Method Room Air 10/06/25 19:58 Medical Decision Making [facility] Narrative Medical decision making narrative: This 65-year-old female presents for evaluation of urinary dysuria, urgency with only passage of small amounts of urine that cause pain in her urethra going into her back and nausea. She does have a remote history of kidney stones. The symptoms started abruptly earlier today. She denies any chest pain or shortness of breath. A bladder scan was performed that does not show any urine in her bladder. An IV was placed and she was medicated with IV fluids, Zofran for her nausea and Toradol for pain. Routine labs were ordered. She has normal white count and stable hemoglobin. Electrolytes are normal. Urine is positive for leukocyte esterase and 10-20 white blood cells per high-power field. She is allergic to penicillins with swelling of her lips tongue, suspicious for angioedema. She was given a dose of Pyridium and IV Cipro. CT scan of the abdomen pelvis shows chronic changes but no acute kidney stone, obstructive uropathy or or pyelonephritis. She has remained hemodynamically stable in the emergency department. She will be discharged home with a prescription for Cipro to use for the next 5 days and Pyridium for her UTI symptoms. Medical Records Medical records reviewed: Yes I reviewed the patient's medical records Lab Data Lab results reviewed: Yes I reviewed the patient's lab results Labs: Lab Results 10/06/25 10/06/25 Range/Units 20:03 20:19 WBC 7.7 (4.0-11.0) 10^3/uL RBC 3.90 L (4.20-5.40) 10^6/uL Hgb 11.9 L (12.0-16.0) g/dL Hct 36.7 (36.0-48.0) % MCV 94.1 (81.0-99.0) fL MCH 30.5 (26.7-34.0) pg MCHC 32.4 (29.9-35.2) g/dL RDW 13.7 (11.0-15.0) % Plt Count 299 (150-450) 10^3/uL MPV 9.7 (9.5-13.5) fL Neut % (Auto) 65.2 (43.0-75.0) % Lymph % (Auto) 26.8 (20.5-60.0) % [place] % (Auto) 6.3 (1.7-12.0) % Eos % (Auto) 1.0 (0.9-7.0) % Baso % (Auto) 0.4 (0.2-2.0) % Neut # (Auto) 5.0 (1.4-6.5) 10^3/uL Lymph # (Auto) 2.1 (1.2-3.8) 10^3/uL [place] # (Auto) 0.5 (0.3-0.8) 10^3/uL Eos # (Auto) 0.1 (0.0-0.7) 10^3/uL Baso # (Auto) 0.0 (0.0-0.1) 10^3/uL Abs Immat Gran (auto) 0.02 (0.00-0.03) 10^3/uL Imm/Tot Granulo (auto) 0.3 (0.0-0.5) % Sodium 140 (136-145) mmol/L Potassium 3.9 (3.5-5.1) mmol/L Chloride 104 (98-107) mmol/L Carbon Dioxide 25.0 (21.0-32.0) mmol/L Anion Gap 14.9 BUN 23.0 H (7.0-18.0) mg/dL Creatinine 0.83 (0.55-1.02) mg/dL Est GFR ( Amer) >60 (>=60 mL/min/1.73m^2) Est GFR (Non-Af Amer) >60 (>=60 mL/min/1.73m^2) BUN/Creatinine Ratio 27.7 Glucose 95 (74-106) mg/dL Lactate 0.5 (0.4-2.0) mmol/L Calcium 9.0 (8.5-10.1) mg/dL Total Bilirubin 0.4 (0.2-1.0) mg/dL AST 21 (15-37) U/L ALT 23 (14-59) U/L Alkaline Phosphatase 84 (46-116) U/L Total Protein 7.3 (6.4-8.2) g/dL Albumin 3.6 (3.4-5.0) g/dL Globulin 3.7 g/dL Albumin/Globulin Ratio 1.0 Urine Color Lt. yellow (YELLOW) Urine Clarity Clear (CLEAR) Urine pH 5.5 (5.0-9.0) Ur Specific [place] >=1.030 A (1.005-1.025) Urine Protein Negative (NEG/TRACE) mg/dL Urine Glucose (UA) Negative (NEGATIVE) mg/dL Urine Ketones Negative (NEGATIVE) mg/dL Urine Occult Blood Small A (NEGATIVE) Urine Nitrite Negative (NEGATIVE) Urine Bilirubin Negative (NEGATIVE) Urine Urobilinogen 0.2 (0.2-1.0) EU/dL Ur Leukocyte Esterase Trace A (NEGATIVE) Urine RBC 0-2 (0-2) #/HPF Urine WBC 10-20 A (NONE SEEN) #/HPF Ur Squamous Epith Cells Few A (NONE/RARE) #/LPF Urine Crystals None seen (None Seen) #/HPF Urine Bacteria Small A (NONE SEEN) #/HPF Urine Casts Seen A (NONE SEEN) #/LPF Hyaline Casts Rare Urine Mucus None seen (NONE SEEN) Ur Culture Indicated? Yes[facility] [place] Imaging Data CT scan - abdomen: Radiologist's impression: ITS Impressions Abdomen/Pelvis CT 10/06/25 20:10 IMPRESSION: No acute findings. Impression dictated by: Hamilton Holder M.D. 10/06/2025 8:52 PM Dictation Location: [place] [address] Electronically authenticated by: [id number] Y Date: 10/06/2025 20:52 Discharge Plan Discharge Chief Complaint: Urogenital-Female Clinical Impression: Urinary tract infection Patient Disposition: Home, Self-Care Time of Disposition Decision: 21:17 Condition: Good Prescriptions / Home Meds: No Action clopidogrel 75 mg tablet 75 mg citalopram 20 mg tablet amitriptyline 25 mg tablet gabapentin 300 mg capsule 300 mg sacubitril-valsartan [Entresto] 24-26 mg tablet 1 tab atorvastatin 40 mg tablet citalopram 40 mg tablet trazodone 50 mg tablet carvedilol 3.125 mg tablet levothyroxine 100 mcg tablet Wegovy 2.4 mg/0.75 mL pen injector SUBCUT Print Language: Guamanian Instructions: Urinary Tract Infection in Women (ED) Referrals: LESA WALTER [Primary Care Provider, Unknown] - 1 week
[2025-10-06 20:27] LABS: Hematocrit 36.7 % (36.0-48.0); Hemoglobin 11.9 g/dL (12.0-16.0); Immature Granulocytes Abs Auto 0.02 10^3/uL (0.00-0.03); Immature Granulocytes Pct Auto 0.3 % (0.0-0.5); Lymphocytes Absolute Auto 2.1 10^3/uL (1.2-3.8); Mean Corpuscular HGB Conc 32.4 g/dL (29.9-35.2); Mean Corpuscular Hemoglobin 30.5 pg (26.7-34.0); Mean Corpuscular Volume 94.1 fL (81.0-99.0); Platelet Count 299 10^3/uL (150-450); Red Blood Count 3.90 10^6/uL (4.20-5.40); White Blood Count 7.7 10^3/uL (4.0-11.0)
[2025-10-06 20:30] LABS: Glucose Urine UA NEGATIVE (NEGATIVE)
--- OUTSIDE RECORDS SUMMARY | 2025-10-06 20:37 | XMS_ITS | Encounter Summary ---
Author Organization [facility] Address [address] [place] [address] Care Team Providers Care Teller Head Name Role Phone Jarvis Collins MD Primary Care Provider [phone] David Khan DPM Unavailable [phone] Young Benoit DO Unavailable [phone] Encounter Details DateTypeDepartmentCare Team (Latest Contact Info)Qciwtlgxugr65/21/2024Clinisync Result Encounter [facility] Unsolicited Provider, Generic External Data Social History Tobacco UseTypesPacks/DayYears UsedDateSmoking Tobacco: FormerCigarettes 12/02/1971 - 12/02/1999Smokeless Tobacco: NeverAlcohol UseStandard Drinks/Week CommentsYes0 (1 standard drink = 0.6 oz pure alcohol)1 drink less than monthly. Caffeine: Coffee, 4-5 daily. Pop, 3 cans weeklyAUDIT-CAnswerDate RecordedQ1: How often do you have a drink containing alcohol?Monthly or less06/01/2025Q2: How many drinks containing alcohol do you have on a typical day when you are drinking?1 or Q3: How often do you have six or more drinks on one occasion?Never06/01/2025PHQ-2AnswerDate RecordedPatient Health Questionnaire-2 [id number] and Gender InformationValueDate RecordedSex Assigned at BirthNot on fileLegal NznIgklgb06/15/2023 6:48 PM EDT Gender IdentityNot on fileSexual OrientationNot on fileOccupationIndustryJob Start DateJob End DateDisability. 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 cashierNot on fileNot on fileNot on filedocumented as of this encounter Functional Status * AUDIT-C ScoreAnswerDate of ScglsqivkpNxxsyi690/01/2025 11:30 AM Miya Piedra MA * QuestionAnswerDate of AssessmentAuthorQ1: How often do you have a drink containing alcohol?Monthly or less06/01/2025 11:30 AM Miya Piedra MA Q2: How many drinks containing alcohol do you have on a typical day when you are drinking?1 or 11:30 AM Miya Piedra MAQ3: How often do you have six or more drinks on one occasion?Never06/01/2025 11:30 AM Miya Condon MA * Over the past 2 weeks, how often have you been bothered by any of the following problems?QuestionAnswerDate of AssessmentAuthorLittle interest or pleasure in doing thingsNot at all06/01/2025 11:31 AM Miya Piedra MA Feeling down, depressed, or hopelessNot at all06/01/2025 11:31 AM Miya Piedra MAPatient Health Questionnaire-2 [id number] 11:31 AM Miya Piedra MA documented as of this encounter Plan of Treatment DateTypeDepartmentCare Team (Latest Contact Info)Lhfiqvrbnqq86/13/2025 10:30 AM ESTOffice Visit [facility] [address] [place] [address] Jose Camarena, MANUEL [address] [place] [address] 01/26/2026 1:00 PM ESTOffice Visit [facility] [address] [place] [address] documented as of this encounter Procedures Procedure NamePriorityDate/TimeAssociated DiagnosisCommentsTRANSTHORACIC ECHO (TTE) MXVTRNXD17/21/2024 8:59 AM EDT documented in this encounter Results * Transthoracic echo (TTE) complete (02/20/2024 8:59 AM EDT)Anatomical Region LateralityModalityUltrasoundSpecimen (Source)Anatomical Location / Laterality Collection Method / VolumeCollection TimeReceived Time02/20/2024 8:59 AM EDT Narrative 02/20/2024 5:20 PM EDT ?[address], [place] [address] ? TRANSTHORACIC ECHOCARDIOGRAM REPORT Patient Name: ?ADELA HOPKINS ? Reading Physician: ?[id number] Tata ? Lucie GALAN Study Date: ?02/20/2024 ? Ordering Provider: ?[id number] IVAN S ? EDGAR MRN/PID: ? [id number] ?Fellow: Accession#: ?[id number] ?Nurse: Date of /Age: 605/13/1960 / 63 years ??Print Color Matcher: ?Radha Santos ? RDCS, RVT Gender: ?F ? Additional Staff: Height: ?157.48 cm ? Admit Date: Weight: ?99.79 kg ?Admission Status: BSA / BMI: ? 1.99 m2 / 40.24 kg/m2 Department Location: ??[facility] ? 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 (PTCA)-Z98.61; Ischemic cardiomyopathy-I25.5; Essential (primary) ? hypertension-I10; Other fatigue-R53.83; Other abnormalities of ? breathing-R06.89 Indication: ?DC and PTCA-01/2021 and 08/2021, Chest Pain, Former Smoker, Obesity CPT Codes: ? Echo Complete w Full Doppler-[id number] Study Detail: The following Echo studies were [...] prior study. QUANTITATIVE DATA SUMMARY: 2D MEASUREMENTS: ? Normal Ranges: Ao Root d: ? 2.60 cm ?? (2.0-3.7cm) LAs: ? 3.90 cm ?? (2.7-4.0cm) RVIDd: ? 2.90 cm ?? (0.9-3.6cm) IVSd: ?0.90 cm ?? (0.6-1.1cm) LVPWd: ? 0.90 cm ?? (0.6-1.1cm) LVIDd: ? 4.90 cm ?? (3.9-5.9cm) LVIDs: ? 3.50 cm LV Mass Index: 76.8 g/m2 LV % FS ?28.6 % LV SYSTOLIC FUNCTION BY 2D PLANIMETRY (MOD): ?Normal Ranges: EF-A4C View: 39.0 % (>=55%) LV DIASTOLIC FUNCTION: ? Normal Ranges: MV Peak E: ?1.21 m/s (0.7-1.2 m/s) MV Peak A: ?1.07 m/s (0.42-0.7 m/s) E/A Ratio: ?1.13 ? (1.0-2.2) MV lateral e' 0.08 m/s MV medial e' ??0.05 m/s E/e' Ratio: 15.20 (<8.0) MITRAL VALVE: ? Normal Ranges: MV Vmax: 1.39 m/s (<=1.3m/s) MV peak P.7 mmHg (<5mmHg) MV mean P.0 mmHg (<48mmHg) MITRAL INSUFFICIENCY: ? Normal Ranges: MR Vmax: 479.00 cm/s dP/dt: 433 mmHg/s (>1200mmHg/sec) AORTIC VALVE: ?Normal Ranges: AoV Vmax: 1.47 m/s (<=1.7m/s) AoV Peak P.6 mmHg (<20mmHg) AoV Mean PG: ? 5.0 mmHg (1.7-11.5mmHg) LVOT Max Robert: 0.84 m/s (<=1.1m/s) AoV VTI: ? 35.10 cm (18-25cm) LVOT VTI: ?18.40 cm LVOT Diameter: ? 2.00 cm ??(1.8-2.4cm) AoV Area, VTI: ? 1.65 cm2 (2.5-5.5cm2) AoV Area,Vmax: ? 1.78 cm2 (2.5-4.5cm2) AoV Dimensionless Index: 0.52 TRICUSPID VALVE/RVSP: ?Normal Ranges: Peak TR Velocity: 1.84 m/s RV Syst Pressure: 16.5 mmHg (< 30mmHg) PULMONIC VALVE: ?Normal Ranges: PV Max Robert: 0.6 m/s ?? (0.6-0.9m/s) PV Max PG: ??1.4 mmHg PIEDV: ?1.61 m/s PADP: ? 13.4 mmHg [id number] Tata Faulkner MD Electronically signed on 02/20/2024 at 5:20:30 PM Final Procedure Note Radiology, Radiologist, - 02/20/[address], Suite [facility], [place] [address] TRANSTHORACIC ECHOCARDIOGRAM REPORT Patient Name: ADELA Spangler KELLIE Viera Physician: [id number] Fenton Study Date: 02/20/2024 Ordering Provider: [id number] HERNÁNDEZ MRN/PID: [id number] Fellow: Nurse: Date of /Age: 605/13/1960 / 63 years Print Color Matcher: Dolly HERNÁNDEZ RVT Gender: F Additional Staff: Height: 157.48 cm Admit Date: Weight: 99.79 kg Admission Status: BSA / BMI: 1.99 m2 / 40.24 kg/m2 Department Location: [facility] Blood Pressure: 100 /70 mmHg Study Type: TRANSTHORACIC ECHO (TTE) COMPLETE Diagnosis/ICD: Atherosclerotic heart disease of [place] coronary arterywithout angina pectoris-I25.10; Coronary angioplasty status (PTCA)-Z98.61; Ischemic cardiomyopathy-I25.5; Essential(primary) hypertension-I10; Other fatigue-R53.83; Other abnormalitiesof breathing-R06.89 Indication: DC and PTCA-01/2021 and 08/2021, Chest Pain, Former Smoker,Obesity CPT Codes: Echo Complete w Full Doppler-[id number] Study Detail: The following Echo studies were performed: 2D, M-Mode,Doppler and color flow. PHYSICIAN INTERPRETATION: Left Ventricle: Left ventricular systolic function is low normal, with an estimated ejection fraction of 50-55%. There are no regional wall motion abnormalities. The left ventricular cavity size is normal. SpectralDoppler shows a normal pattern of left ventricular diastolic filling. Left Atrium: The left atrium is normal in size. Right Ventricle: The right ventricle is normal in size. There is normalright ventricular global systolic function. Right Atrium: The right atrium is normal in size. Aortic Valve: The aortic valve appears structurally normal. There is noevidence of aortic valve regurgitation. The peak instantaneous gradient ofthe aortic valve is 8.6 mmHg. The mean gradient of the aortic valve is 5.0mmHg. Mitral Valve: The mitral valve is mild to moderately thickened. There ismoderate mitral valve regurgitation. Tricuspid Valve: The tricuspid valve is structurally normal. No evidenceof tricuspid regurgitation. Pulmonic Valve: The pulmonic valve is structurally normal. There is noindication of pulmonic valve regurgitation. Pericardium: There is no pericardial effusion noted. Aorta: The aortic root is normal. CONCLUSIONS: 1. Left ventricular systolic function is low normal with a 50-55%estimated ejection fraction. 2. Moderate mitral valve regurgitation. [...] mmHg PIEDV: 1.61 m/s PADP: 13.4 mmHg [id number] Tata Faulkner MD Electronically signed on 02/20/2024 at 5:20:30 PM Final Authorizing ProviderResult TypeResult StatusGeneric External Data ProviderCV ECHO PROCEDURESFinal Result documented in this encounter Visit Diagnoses Not on filedocumented in this encounter Care Teams Team MemberRelationshipSpecialtyStart DateEnd Jarvis Collins MD [address] [facility] [place] [address] PCP - GeneralInternal Medicine06/19/23 David Khan DPM [address] [address] Referring PhysicianPodiatry06/22/24 Young Benoit DO [address] [address] Referring PhysicianNeurology1documented as of this encounter
--- OUTSIDE RECORDS SUMMARY | 2025-10-06 20:37 | XMS_ITS | CCD ---
Author Organization [facility] CliniSywy Care Team Providers Care Leather Coverer Name Role Phone NAKUL BARCENAS Unavailable Unavailable EBONI WU Unavailable Unavailable NAKUL BARCENAS Unavailable Unavailable NAKUL BARCENAS Unavailable Unavailable Unknown, Referring Provider Unavailable Unav ailable Unavailable Unavailable Robert Newell Unavailable Susan Monroe Unavailable Florina Calix Unavailable Keira Kwon Unavailable Subha Rueda Unavailable Unavailable Unavailable Liu Campbell Unavailable CHELE, DR BECKMAN Attending Unavailable OSIRIS, DR JONES Primary Care Unavailable CHELE, DR BECKMAN Admitting Unavailable CHELE, DR BECKMAN Consulting Unavailable MISC, DR SOLIMAN Consulting Unavailable MISC, DR SOLIMAN Attending Unavailable OSIRIS, DR JONES Primary Care Unavailable MISC, DR SOLIMAN Admitting Unavailable OSIRIS, DR JONES Primary Care Unavailable POOJA, DR TENA Piper Admitting Unavailable POOJA, DR TENA Piper Consulting Unavailable POOJA, DR TENA Piper Attending Unavailable ROBERTO, DR IVAN Lynn Admitting Unavailabl e ROBERTO, DR IVAN Lynn Consulting Unavailabl e ROBERTO, DR IVAN Lynn Attending Unavailabl e OSIRIS, DR JONES Primary Care Unavailable OSIRIS, DR JONES Consulting Unavailable OSIRIS, DR JONES Attending Unavailable OSIRIS, DR JONES Admitting Unavailable OSIRIS, DR JONES Primary Care Unavailable HILL, DR JONES Consulting Unavailable OSIRIS, DR JONES Attending Unavailable HILL, DR JONES Admitting Unavailable HILL, DR JONES Primary Care Unavailable HILL, DR JONES Consulting Unavailable OSIRIS, DR JONES Attending Unavailable HILL, DR JONES Admitting Unavailable HILL, DR JONES Primary Care Unavailable MD Robert Newell Primary Care Provider CY Monroe Emergency Provider DO Rogelio Sanjay Emergency Provider Roberto, Dr. Ivan Dominique Attending Soniava marcelo Newell, Dr. Robert Prather Primary Care Unavailab brayden Mejia, Dr. Ivan Dominique Referring Soniava marcelo Newell, Dr. Robert Prather Primary Care Unavailab Melanie Pa Referring Unavailable Melanie Tracy Attending Unavailable MD Robert Newell Primary Care Provider CY Cheng Emergency Provider Robert Newell MD Primary Care Provider MD Robert Newell Primary Care Provider DO Redd Salazar Emergency Provider MD Fartun Tran Admit Provider MD Fartun Tran Attending Provider MD Manish Greenberg Other Provider MD Siobhan Whitfield Attending Provider DO Richard Mohan Emergency Provider Robert Rivas MD Primary Care Provider Bill DPM, David A Unavailable Robert Newell MD Primary Care Provider Redd Salazar DO Emergency Provider Fartun Tran MD Admit Provider Manish Greenberg MD Other Provider Siobhan Whitfield MD Attending Provider Richard Mohan DO Emergency Provider UnaJazmine Barth DO Attending Provider [phone] Jazmine Benoit DO Unavailable Robert Newell MD Primary Care Provider Denys AGLAN, Jordan Lynn Attending Provider [phone] Robert Newell MD Primary Care Provider IVAN MEJIA Referring Unavailable ROBERT NEWELL Primary Care Unavailable Robert Newell Primary Care Unavailable SAUL HUNT Attending Unavailable SAUL HUNT Admitting Unavailable Osiris, Robert Piper Primary Care Unavailable SAUL HUNT Attending Unavailable ALLAN, SAUL Sumner Admitting Unavailable STEPARSENIO, SAUL Sumner Admitting Unavailable Osiris, Robert Piper Primary Care Unavailable SAUL HUNT Attending Unavailable Cy FISHER, Christopher Unavailable [phone] Cy DO, Christopher Unavailable XU CLEMENT Attending Unavailable ROBERT NEWELL Attending Unavailable ROBERT NEWELL Referring Unavailable STEPARSENIO, JR., SAUL Sumner Attending Unavaila ble OSIRIS, ROBERT Piper Referring Unavailable STEPANIC, JR., SAUL Sumner Referring Unavaila ble STEPANIC, JR., SAUL Sumner Referring Unavaila ble STEPANIC, JR., SAUL Sumner Attending Unavaila ble RISALITI, LESA Pereira Attending Unavailable RICHARD CAMARENA Attending Unavailable ISIDRO, RICHARD Gayle Attending Unavailable ISIDRO, RICHARD Gayle Attending Unavailable ISIDRO, RICHARD Gayle Attending Unavailable ISIDRO, RICHARD Gayle Attending Unavailable JOSH VELA Attending Unavailable JAZMINE BENOIT Referring Unavailable MIRIAN, JOSH Attending Unavailable JAZMINE BENOIT Referring Unavailable BAL BAEZA Attending Unavailable JAZMINE BENOIT Referring Unavailable ANTONIETTA BA Attending Unavailable RISLESA CHAVEZ Referring Unavailable JAZMINE BENOIT Attending Unavailable XU CLEMENT Attending Unavailable DIDJAIMEE BARNETT Attending Unavailable XU CLEMENT Attending Unavailable ROBERT NEWELL Referring Unavailable BRENDA BEGUM Attending Unavailable Robert Newell MD Primary Care Provider Liu Campbell MD Attending Provider Liu Campbell MD Other Provider [phone] Donal Salazarif S Admitting Unavailable Jordan Salazar Attending Unavailable Robert Newell Primary Care Unavailable Jazmine Benoit Admitting Unavailab Jazmine Johnston Attending Unavailab le Robert Newell Primary Care Unavailable Denys, Jordan S Admitting Unavailable Denys Jordan S Attending Unavailable Robert Newell Primary Care Unavailable Liu Campbell Admitting Unavailable Liu Campbell Attending Unavailable Robert Newell Primary Care Unavailable Robert Newell MD Primary Care Provider [phone] Jazmine Benoit DO Unavailable MELANIE TRACY Attending Unavailable IVAN MEJIA Referring Unavailable ROBERT NEWELL Primary Care Unavailable IVAN MEJIA Attending Unavailable MELANIE TRACY Referring Unavailable ROBERT NEWELL Primary Care Unavailable Allergies Allergy ClassificationReported Allergen(s)Allergy TypeDate of OnsetReaction(s) Facility (1 source)metoclopramide; Translations: [METOCLOPRAMIDE HCL]Drug Allergy 91-57-8153[facility]ZqluwodxnTri[facility] Rep[facility] (20 sources)Penicillins; Translations: [PENICILLINS]Propensity to adverse reactions to drug (disorder)99-57-6147LxwuBvweybcsfProtestant [facility] Repository (18 sources)Codeine; Translations: [codeine]Drug AllergyVomitJeffrey Ville [address] DO Work Phone: (20 sources)Lisinopril; Translations: [lisinopril]Drug Jtptfbh59-34-7877CcdscD[facility] (20 sources)Metoclopramide; Translations: [Reglan TABS]Drug Vrkevpo04-26-6630 [place] [address] DO Work Phone: (10 sources)Morphine; Translations: [morphine]Drug AllergyAnaphylaxisM-[place] [address] DO Work Phone: (8 sources)Morphine Derivatives; Translations: [Morphine Derivatives]Allergy to drug (finding)[facility] Work Phone: (16 sources)AmoxicillinDrug Cxnzmla25-92-3346oblhWbcxdtqqeSelect [facility] (5 sources)Esomeprazole / NaproxenDrug AllergyhomicidalNort [employer] Other (16 sources)Penicillin GDrug Vlwgmcz68-74-2642idamNiyvatxygSelect Medical [facility] (20 sources)traMADol; Translations: [tramadol]Drug Ofpcgnl66-73-7425GaxbotgTMRoy [place]ille [address] DO Work Phone: (2 sources)cefdinir; Translations: [cefdinir]Drug Vfoxruz77-27-9233[facility]Reg[facility] Repository (2 sources)Iothalamate; Translations: [Reglan]Drug AllergyThe [facility] (2 sources)Penicillin; Translations: [penicillin]Drug AllergyThe [facility] Rep[facility] (20 sources)Esomeprazole; Translations: [esomeprazole]Drug Ymexhkl16-74-4485 HivesBucyrus Community HospitalComment on above:homicidal (16 sources)Metoclopramide; Translations: [METOCLOPRAMIDE]Drug Nbpjwua91-75-7218 Hives, Hives, vomitting/rashBucyrus Community Hospital (14 sources)Naproxen; Translations: [naproxen]Drug Qtggjky24-14-5267Bgakl, Hives, homicidalBucyrus Community Hospital (20 sources)Ticagrelor; Translations: [ticagrelor]Drug Rdezvwa01-81-0592 Shortness of breathBucyrus Community Hospital (20 sources)cefdinirDrug Tnsxonj10-07-3599HFX[facility] (1 source)AmoxicillinDrug Iiuimbf45-11-1542HjpigluokBucyrus Community Hospital Repository (1 source)PenicillinDrug Uiemzcd83-63-2955PxintudpjBucyrus Community Hospital Repository Medications Current Medications MedicationDrug Class(es)DatesSig (Normalized)Sig (Original)acetaminophen 325 mg / HYDROcodone bitartrate 5 mg oral tablet (20 sources)Opioid AgonistStart: 05-14-2025 End: 20-60-5054gnnr 1 tablet by mouth every six hours for painHYDROcodone- acetaminophen ([place]) 5-325 MG tablet Indications: S/P arthroscopy of left shoulder Take 1 tablet by mouth every 6 (six) hours if needed for severe pain for up to 5 days 20 tablet 05/14/2025 05/19/2025 ActiveStart: 01-25-2020 End: 27-02-5367pvrj 1 tablet by mouth every four to six hours as needed for pain Hydrocodone-Acetaminophen ([place]) 5-325 mg tablet Discontinued 1 TAB PO EVERY 4- 6 HOURS as needed for pain 7 2 January 25, 2020 October 01, 2020 6:29pm Start: 02-03-2018 End: 35-04-6853sakr 1 tablet by mouth every six hours as needed for pain Hydrocodone-Acetaminophen ([place]) 5-325 mg tablet Discontinued 1 TAB PO Q6H as needed for pain February 03, 2018 December 27, 2018 7:23pmStart: 10-18-2017 End: 97-91-9494wsnb 1 tablet by mouth every four to six hours as needed for pain Hydrocodone-Acetaminophen ([place]) 5-325 mg tablet Discontinued 1 - 2 TAB PO EVERY 4-6 HOURS as needed for pain October 18, 2017 1:00am February 03, 2018 5:34pmacetaminophen 325 mg / oxyCODONE hydrochloride 5 mg oral tablet (14 sources)Opioid AgonistStart: 04-30-2025 End: 31-24-2453pvlj 1 tablet by mouth every six hours for painoxyCODONE- acetaminophen (Percocet) 5-325 MG tablet Indications: Internal derangement of left shoulder , Post-operative pain Take 1 tablet by mouth every 6 (six) hours if needed for moderate pain for up to 5 days 20 tablet 04/30/2025 05/05/2025 ActiveStart: 10-01-2020 End: 63-44-7059wdhc 1 tablet by mouth every six hours as needed for pain Oxycodone-Acetaminophen 5-325 mg tablet Discontinued 1 TAB PO Q6H as needed for pain 09 03October 01, 2020 December 21, 2020 1:29pm{1 (ascorbic acid 7540 MG / polyethylene glycol 3350 10743 MG / potassium chloride 1200 MG / sodium ascorbate 35160 MG / sodium chloride 3200 MG Powder for Oral Solution) / 1 (polyethylene glycol 3350 986680 MG / potassium chloride 1000 MG / sodium chloride 2000 MG / sodium sulfate 9000 MG Powder for Oral Solution) } Pack [Plenvu] (1 source)Osmotic Laxative, Vitamin CStart: 33-29-9810Wjbtdu 140 GM dose 1 pouch at 4pm, dose 2 pouch A & B at 11pm Orally twice a day for 1 days BIN:[id number] PCN: [id number] GROUP:[id number] ID:[id number] Jun, Activeaspirin 81 mg delayed release oral tablet (20 sources)Platelet Aggregation Inhibitor, Nonsteroidal Anti-inflammatory Drug Start: 04-02-2025 End: 45-70-1753ugvjsux 81 MG EC tablet 81 mg 04/02/2025 07/21/2025 Discontinued (Therapy completed)Start: 04-07-2021 End: 72-42-7851mopn 1 tablet by mouth once dailyAspirin (Children's Aspirin) 81 mg Tablet,Chewable Discontinued 81 MG PO Daily April 07, 2021 12:00am August 10, 2024 1:23pmAspirin 81 MG TABS TAKE 1 TABLET DAILY. Quantity: 0 Refills: 0 Ordered: 20-Sep-2021 DO Activeatorvastatin 40 mg oral tablet (20 sources)HMG-CoA Reductase InhibitorStart: 03-10-2025 End: 14-05-5644fosu 1 tablet by mouth once dailyatorvastatin (Lipitor) 40 mg tablet Indications: Mixed hyperlipidemia Take 1 tablet (40 mg) by mouth once daily. 90 tablet 3 03/10/2025 03/10/2026 ActiveStart: 04-10-2021 End: 09-54-8095evoy 1 tablet by mouth once dailyatorvastatin (Lipitor) 80 MG tablet Indications: Pure hypercholesterolemia TAKE 1 TABLET BY MOUTH DAILY 90 tablet 3 03/15/2025 07/21/2025 Discontinued (Therapy completed)Start: 04-07-2021 End: 44-18-4458tnas 1 tablet by mouth once daily in the eveningAtorvastatin 80 mg Tablet Discontinued 80 MG PO Every evening April 07, 2021 12:00am April 07, 2021 6:32pmtake 1 tablet by mouth once dailyAtorvastatin Calcium - 1 tablet Orally Once a day Activebenzonatate 100 mg oral capsule (20 sources)Non-narcotic AntitussiveStart: 45-02-2682hsja 1 capsule by mouth three times daily as needed for coughbenzonatate (Tessalon) 100 MG capsule Indications: Upper respiratory tract infection, unspecified type TAKE 1 CAPSULE BY MOUTH THREE TIMES A DAY NEEDED FOR COUGH (DO NOT CRUSH OR CHEW) 42 capsule 05/12/2025 ActiveStart: 01-16-2024 End: 45-50-2279pcpq 1 capsule by mouth three times daily as needed for cough Benzonatate 100 mg capsule Discontinued 100 MG PO Three times daily as needed for cough August 11, 2024 1:13pm January 19, 2025 12:00pmcarvedilol 3.125 mg oral tablet (20 sources)alpha-Adrenergic Yady, beta-Adrenergic BlockerStart: 08-18-2024 End: 08-52-4721mter 1 tablet by mouth twice daily after mealtimecarvedilol (Coreg) 3.125 mg tablet Indications: Primary hypertension Take 1 tablet (3.125 mg) by mouth 2 times a day after meals. 180 tablet 3 10/04/2025 ActiveStart: 31-44-6532swcv 1 tablet by mouth twice daily at mealtimecarvedilol (Coreg) 3.125 mg tablet Take 1 tablet (3.125 mg) by mouth 2 times a day with meals. 0 ActiveStart: 43-76-5108zrry 1 tablet by mouth twice daily at mealtime Carvedilol 6.25 mg Tablet Active 6.25 MG PO Twice daily with meals 60 April 07, 2021 12:00am Complies with drug therapytake 1 tablet by mouth every twelve hourscarvedilol (Coreg) 3.125 MG tablet Take 3.125 mg by mouth every 12 (twelve) hours Activetake 1 tablet by mouth twice daily at mealtimeCarvedilol 3.125 MG Oral Tablet TAKE 1 TABLET TWICE DAILY WITH MEALS. Quantity: 60 Refills: 0 Ordere d: 11-Oct-2021 Jose Tracy CHANGE MANAGER-GARMENT FITTER, Melanie Active reduced doseciprofloxacin 500 mg oral tablet (2 sources)Quinolone AntimicrobialStart: 10-21-2024 End: 59-07-0983vawy 1 tablet by mouth once dailyciprofloxacin (Cipro) 500 MG tablet Indications: Acute cystitis with hematuria Take 1 tablet (500 mg) by mouth Daily for 5 days 5 tablet 10/21/2024 10/26/2024 Activecitalopram 40 mg oral tablet (20 sources)Serotonin Reuptake InhibitorStart: 78-33-5694sblk 1 tablet by mouth once dailycitalopram (CeleXA) 40 MG tablet Indications: Moderate major depression (HCC) Take 1 tablet (40 mg)by mouth Daily 90 tablet 3 07/05/2025 ActiveStart: 07-06-2024 End: 34-26-8953mxly 1 tablet by mouth once dailycitalopram (CeleXA) 40 MG tablet Indications: Moderate major depression (HCC) Take 1 tablet (40 mg)by mouth Daily 90 tablet 3 10/21/2024 ActiveStart: 15-62-8824mlhw 1 tablet by mouth once dailyCitalopram (Celexa) 20 mg Tablet Active 20 MG PO Daily October 01, 2020 12:00am Complies with drug therapyStart: 10-18-2017 End: 44-03-9290rvqj 1 tablet by mouth once dailyCitalopram 40 mg tablet Discontinued 40 MG PO Daily October 18, 2017 1:00am October 01, 2020 6:28pm clopidogrel 75 mg oral tablet (20 sources)P2Y12 Platelet InhibitorStart: 08-21-2021 End: 31-50-1501jtly 1 tablet by mouth once dailyclopidogrel (Plavix) 75 mg tablet Indications: History of PTCA TAKE ONE TABLET BY MOUTH DAILY 90 tablet 3 12/23/2023 Activediclofenac sodium 0.03 mg/mg topical gel (20 sources)Nonsteroidal Anti-inflammatory Drugdiclofenac sodium 3 % gel Active diclofenac sodium 3 % gel apply 2 grams Externally Four times a day prn Active doxycycline hyclate 100 mg oral capsule (20 sources)Tetracycline-class DrugStart: 08-18-2024 End: 74-15-4234vtgzizdzpdw (Vibramycin) 100 MG capsule Indications: Acute non- recurrent frontal sinusitis Take 1 capsule (100 mg) by mouth in the morning and 1 capsule (100 mg) before bedtime. Do all this for 7 days. Take with at least 8 ounces (large glass) of water, do not lie down for 30 minutes after. 14 capsule 08/18/2024 08/25/2024 ActiveStart: 88-26-5936cxzh 1 capsule by mouth every twelve hoursDoxycycline Monohydrate 100 MG 1 capsule Orally every 12 hrs for 10 days May, ActiveStart: 10-01-2020 End: 37-37-4400cqno 1 capsule by mouth twice dailyDoxycycline Hyclate 100 mg capsule Discontinued 100 MG PO Twice daily 20 09October 01, 2020 12:00am December 21, 2020 1:29pmDoxycycline Hyclate CAPS as directed Quantity: 0 Refills: 0 Ordered: 06-Jun-2022 DO Activegabapentin 300 mg oral capsule (20 sources)Anti-epileptic AgentStart: 03-23-2025 End: 90-45-4797wgrp 2 capsules by mouth once daily in the morning, then take 2 capsules by mouth once daily at bedtimegabapentin (Neurontin) 300 MG capsule Indications: Lumbar radiculopathy TAKE 2 CAPSULES BY MOUTH EVERY MORNING AND TAKE TWO CAPSULES BY MOUTH EVERY NIGHT AT BEDTIME 360 capsule 3 03/23/2025 07/21/2025 Discontinued (Therapy completed)Start: 08-10-2024 End: 38-90-0737wrcs 1 capsule by mouth twice dailyGabapentin 300 mg capsule Active 300 MG PO Twice daily August 10, 2024 12:00am Complies with drug therapyStart: 68-39-0453mmzm 2 capsules by mouth once daily in the morning, then take 2 capsules by mouth once daily at bedtimegabapentin (Neurontin) 300 MG capsule Indications: Lumbar radiculopathy TAKE 2 CAPSULES BY MOUTH EVERY MORNING AND TAKE TWO CAPSULES BY MOUTH EVERY NIGHT AT BEDTIME 360 capsule 3 12/26/2023 ActiveStart: 10-01-2020 End: 33-53-1332pbgh 1 capsule by mouth once dailyGabapentin 100 mg Capsule Discontinued 100 MG PO Daily October 01, 2020 12:00am April 07, 2021 6:34pm Start: 10-18-2017 End: 11-91-7281kbqb 1 tablet by mouth three times dailyGabapentin 600 mg tablet Discontinued 600 MG PO Three times daily October 18, 2017 1:00am October 01, 2020 6:28pmIsosorbide Dinitrate (5 sources)Nitrate VasodilatorIsosorbide Dinitrate Cuhxsm933 actuat levalbuterol 0.045 mg/actuat metered dose inhaler (20 sources)beta2-Adrenergic AgonistStart: 01-19-2025 End: 03-64-5847udhy 2 puff(s) by inhalation every six hours for wheezing levalbuterol (Xopenex HFA) 45 MCG/ACT inhaler Indications: Mild persistent asthmatic bronchitis without complication (HCC) , Mild intermittent asthma with acute exacerbation (HCC) Inhale 2 puffs every 6 (six) hours if needed for wheezing 15 g 2 01/19/2025 01/19/2026 Activelevothyroxine sodium 0.1 mg oral tablet (20 sources)l-ThyroxineStart: 78-84-0121sbjk 1 capsule by mouth once daily Levothyroxine 100 mcg capsule Active 100 MCG PO Daily February 03, 2025 1:00am Complies with drug therapyStart: 01-19-2025 End: 66-43-8399nwpfhexfrkzxp (Synthroid, Levoxyl) 100 mcg tablet 09/01/2025 ActiveStart: 04-28-2024 End: 44-73-1846curv 1 tablet by mouth in the morninglevothyroxine (Synthroid, Levoxyl) 112 MCG tablet Indications: Acquired hypothyroidism (CMS/HCC) Take 1 tablet (112 mcg) by mouth in the morning. 90 tablet 3 10/21/2024 01/19/2025 Discontinued (Dose adjustment)Start: 10-01-2020 End: 12-32-5122amwr 1 capsule by mouth once dailyLevothyroxine 75 mcg Capsule Discontinued 75 MCG PO Daily October 01, 2020 12:00am February 03, 2025 9:24am Start: 14-38-5150sylr 1 tablet by mouth once daily in the morningLevothyroxine Sodium 100 MCG 1 tablet on an empty stomach in the morning Orally Once a day for 90 day(s) Jul, ActiveStart: 10-18-2017 End: 56-56-3319jvlr 1 tablet by mouth once dailyLevothyroxine 125 mcg tablet Discontinued 125 MCG PO Daily October 18, 2017 1:00am September 6:28pmtake 1 tablet by mouth once dailyLevothyroxine Sodium 75 MCG Oral Tablet TAKE 1 TABLET DAILY. Quantity: 0 Refills: 0 Ordered: 20-Sep-2021 DO Active meclizine hydrochloride 12.5 mg oral tablet (20 sources)AntiemeticStart: 51-72-5089jeju 1 tablet by mouth every six hours [...] oral tablet (6 sources)Muscle RelaxantStart: 07-02-2024 End: 29-90-1460icimzplypusdl (Robaxin) 750 MG tablet Indications: Chronic right- sided thoracic back pain Take 1 tablet (750 mg) by mouth as needed at bedtime for muscle spasms for up to 7 days 7 tablet 07/02/2024 08/05/2024 Discontinued methylPREDNISolone (18 sources)CorticosteroidStart: 06-01-2025 End: 08-31-6460hwcsjdXLQWSQZbjssi (Medrol Dospak) 4 MG tablets Indications: Acute left-sided low back pain with bilateral sciatica Take as directed on package. 21 tablet 06/01/2025 07/21/2025 Discontinued (Therapy completed)Start: 69-17-7536qtmbtnLOORGUDfpxtu (Medrol Dospak) 4 MG tablets Indications: Acute left-sided low back pain with bilateral sciatica Take as directed on package. 21 tablet 06/01/2025 ActiveStart: 07-02-2024 End: 31-55-1113okciqaJSHCZZNhmxzd (Medrol Dospak) 4 MG tablets Indications: Chronic right-sided thoracic back painTake as directed on package. 21 tablet 07/02/2024 08/05/2024 DiscontinuedStart: 89-17-7899xjafzhJNMFMYNkhjcv (Medrol Dospak) 4 MG tablets Indications: Chronic right-sided thoracic back painTake as directed on package. 21 tablet 07/02/2024 ActiveStart: 05-28-2022 methylPREDNISolone 4 MG as directed Orally for daily dose take half with breakfast, half with dinner for 6 days May, Activenitrofurantoin, macrocrystals 25 mg / nitrofurantoin, monohydrate 75 mg oral capsule (16 sources)Nitrofuran AntibacterialStart: 01-19-2025 End: 74-37-3505lkdb 1 capsule by mouth in the morningnitrofurantoin, macrocrystal-monohydrate, (Macrobid) 100 MG capsule Indications: Dysuria Take 1 capsule (100 mg) by mouth in the morning and 1 capsule (100 mg) before bedtime. Do all this for 3 days.6 capsule 01/19/2025 01/22/2025 ActiveStart: 06-22-2020 End: 08-32-7606mvqi 1 capsule by mouth twice daily at mealtimeNitrofurantoin Monohyd/M-Cryst (Macrobid) 100 mg capsule Discontinued 100 MG PO Twice daily 10 June 22, 2020 12:00am October 01, 2020 6:29pm must administer with a meal/foodnitroglycerin 0.4 mg sublingual tablet (20 sources)Nitrate VasodilatorStart: 04-07-2021 End: 45-44-5027shdgkoaxouwui (Nitrostat) 0.4 MG SL tablet Indications: Coronary artery disease involving [place] coronary artery of [place] heart without angina pectoris Place 1 tablet (0.4 mg) under the tongue every5 (five) minutes if needed for chest pain 90 tablet 3 06/01/2025 Activenitroglycerin (Nitrostat) 0.4 MG SL tablet as directed Sublingual Activenystatin 060208 unt/ml topical cream (10 sources)Polyene AntifungalStart: 06-77-5464Ghgsembn 020656 UNIT/GM 1 application to abdominal pannus and under the right breast Externally prnfor 10 day(s) PRN Jul, ActiveStart: 72-47-3636Fdwrttly 956752 UNIT/GM 1 application Externally prn for 10 day(s) Jul, Activeondansetron 4 mg disintegrating oral tablet (20 sources)Serotonin-3 Receptor AntagonistStart: 04-11-2021 End: 40-79-2161rsswqwzsngi ODT (Zofran-ODT) 4 mg disintegrating tablet Every 8 hours as needed for nausea and vomiting 01/16/2024 Activepantoprazole 40 mg delayed release oral tablet (20 sources)Proton Pump InhibitorStart: 60-80-8212lgozxljoraan (ProtoNix) 40 mg EC tablet 1 tablet (40 mg). 04/02/2025 ActiveStart: 95-85-2204Dzuiqxzvulvu (Protonix) 20 mg tablet,delayed release (DR/EC) Active 40 MG PO As Directed as needed for Acid Reflux August 21, 2021 10:42am Complies with drug therapy Start: 04-11-2021 End: 47-14-9811ysks 1 tablet by mouth once dailyPantoprazole (Protonix) 20 mg Tablet,Delayed Release (Dr/Ec) Discontinued 20 MG PO Daily April 11, 2021 12:00am August 21, 2021 10:43amStart: 10-27-2017 End: 37-76-9848usnh 40 mg by mouth once dailyPantoprazole (Protonix) [address] for susp in packet Discontinued 40 MG PO Daily October 27, 2017 1:00am February 03, 2018 5:34pm x 1 monthtake 1 tablet by mouth every twelve hoursPantoprazole Sodium 40 MG 1 tablet Orally twice a day for 90 day(s) prn ActivepredniSONE 50 mg oral tablet (20 sources)Start: 12-03-2024 End: 10-71-7073tmop 1 tablet by mouth once dailypredniSONE (Deltasone) 50 MG tablet Indications: Mild intermittent asthma with acute exacerbation (CMS/HCC) Take 1 tablet (50 mg) by mouth Daily for 5 days 5 tablet 12/03/2024 12/08/2024 ActiveStart: 26-84-2854rdab 1 tablet by mouth every twelve hourspredniSONE 20 MG 1 tablet Orally bid for 5 day(s) Sep, Not-TakingStart: 01-25-2020 End: 74-56-1841phen 1 tablet by mouth once dailyPrednisone 50 mg tablet Discontinued 50 MG PO Daily 5 January 25, 2020 1:00am October 01, 2020 6:29pmStart: 02-03-2018 End: 48-03-1673oryh 3 tablets by mouth once daily at mealtimePrednisone 20 mg tablet Discontinued 60 MG PO Daily February 03, 2018 1:00am December 27, 2018 7:23pm administer with food or milkStart: 02-03-2018 End: 42-99-4628qdac 60 mg by mouth once daily at mealtimePrednisone Discontinued 60 MG PO Daily February 03, 2018 1:00am December 27, 2018 7:23pm administer with food or milkStart: 10-27-2017 End: 67-99-6537dvoc 2 tablets by mouth once dailyPrednisone 20 mg Tablet Discontinued 40 MG PO Daily October 27, 2017 1:00am February 03, 2018 5:34pm Start: 10-27-2017 End: 36-55-7450mpzm 40 mg by mouth once dailyPrednisone Discontinued 40 MG PO Daily October 27, 2017 1:00am February 03, 2018 5:34pmsacubitril 24 mg / valsartan 26 mg oral tablet (20 sources)Angiotensin 2 Receptor BlockerStart: 68-68-8914efap 1 tablet by mouth twice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 Hospital Work Phone: [phone] Valve Area by Continuity of VTI2.37 cm2 [facility] Work Phone: [phone] mn rjyl0fdPiVvcwnejctfMercy Health [facility] Work Phone: [phone] pk pqdm7gtMgEuiphnufzhMercy Health [facility]sburg Hospital Work Phone: [phone] pk vel1.51 m/[facility] Work Phone: [phone] vol index A/L28.6 ml/z9MjxglhderoMercy Hospital Work Phone: [phone] A4C EF46.3[facility] Work Phone: [phone] Biplane EF46 %[facility] Work Phone: [phone] EF58 %[facility] Work Phone: [phone] [facility] Work Phone: [phone] diam2.12 [facility] Work Phone: MV avg E/e' ratio13.43[facility] Work Phone: MV E/A ratio0.86[facility] Work Phone: [phone] free wall pk S'9.89 cm/[facility] Work Phone: [phone] [facility] Work Phone: Tricuspid annular plane systolic excursion1.7 cm [facility] Work Phone: [facility] Work Phone: US Heart Transthoracicon 02-23-2025 [facility] [address] [facility], [address], [place] [address] TRANSTHORACIC ECHOCARDIOGRAM REPORT Patient Name: ADELA Spangler HOPKINS [place] Physician: [id number] Lindy Lehman MD, [facility] Study Date: 02/23/2025 Ordering Provider: [id number] IVAN MEJAI MRN/PID: [id number] Fellow: Nurse: Date of /Age: 605/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: Isabel Diaz RDMS, thai RDCS, RVT Gender Assigned at F Additional Staff: : Height: 157.48 cm Admit Date: Weight: 97.98 kg Admission Status: Outpatient BSA / BMI: 1.98 m2 / 39.51 Department Location: [facility] Heart kg/m2 [place] Blood Pressure: 132 /70 mmHg Study Type: TRANSTHORACIC ECHO (TTE) COMPLETE Diagnosis/ICD: Atherosclerotic heart disease of [place] coronary artery without angina pectoris-I25.10; Old myocardial infarction-I25.2; Essential (primary) hypertension-I10; Ischemic cardiomyopathy-I25.5 Indication: CAD, CP, HTN, HLD, ICM, MR, PTCA and STEMI CPT Codes: Echo Complete w Full Doppler-22840 Study Detail: The following Echo studies were [...] RA Area A4C: 12.4 cm2 RA [place] A4C: 4.3 cm LV SYSTOLIC FUNCTION: Normal Ranges: E (more content not included)...Lindy Page MD - 02/23/[address], [address] [address] TRANSTHORACIC ECHOCARDIOGRAM REPORT Patient Name: ADELA Crys HOPKINS [place] Physician: [id number] Lindy Lehman MD, [facility] Study Date: 02/23/2025 Ordering Provider: [id number] IVAN MEJIA MRN/PID: [id number] Fellow: Nurse: Date of /Age: 605/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: thai Mcdermott RDMS, RDCS, RVT Gender Assigned at F Additional Staff: : Height: 157.48 cm Admit Date: Weight: 97.98 kg Admission Status: Outpatient BSA / BMI: 1.98 m2 / 39.51 Department Location: [facility] kg[address] Blood Pressure: 132 /70 mmHg Study Type: TRANSTHORACIC ECHO (TTE) COMPLETE Diagnosis/ICD: Atherosclerotic heart disease of [place] coronary artery without angina pectoris-I25.10; Old myocardial infarction-I25.2; Essential (primary) hypertension-I10; Ischemic cardiomyopathy-I25.5 Indication: CAD, CP, HTN, HLD, ICM, MR, PTCA and STEMI CPT Codes: Echo Complete w Full Doppler-77790 Study Detail: The following Echo studies were [...] RA Area A4C: 12.4 cm2 RA [place] A4C: 4.3 cm LV SYSTOLIC FUNCTION: Normal [...] mean P.3 mmHg (<48mmH (more content not included)...[facility] Work Phone: X-ray reportOrdered By: Maurilio Zhang on 02-10-2025 [facility] Main [address] [address] XRay Report Signed Patient: Adela Hopkins V MR#: [id number] : 1960 Acct:[id number] Age/Sex: 64 / F ADM Date: 5 [...] Zhang Jr., D.OSlade02/10/2025 4:38 PM Dictation Location: [place] [address] Transcribed By: [facility] 02/10/25 1638 Dictated By: Maurilio Zhang Jr, DO 02/10/25 1636 Signed By: 02/10/25 1638 [facility] HospitalXR cerv spine AP/LAT/FLX/EXTon 77-58-8317DM cerv spine AP/LAT/FLX/EXTSOUTHERN [facility]IO [facility] Main [address] [address] XRay Report Signed Patient: Adela Hopkins V MR#: [id number] 8 : 1960 Acct:[id number] Age/Sex: 64 / F ADM Date: 02/10/25 Loc: XD Room: Type: REG CLI Attending Dr: Jordan Salazar MD Copies to: Jordan Salazar MD Ordering Provider: Jordan Salazar MD Date of [...] Zhang Jr., D.OSlade02/10/2025 4:38 PM Dictation Location: [place] [address] Transcribed By: [facility] 02/10/25 1638 Dictated By: Maurilio Zhang Jr, DO 02/10/25 1636 Signed By: 02/10/25 1638[facility] Physician [facility] SHOULDER LEFT WO IV CONTRAST on 53-16-5073NM SHOULDER LEFT WO IV CONTRASTEXAMINATION/TECHNIQUE: MR SHOULDER [...] MDNormalNot AvailableXR Shoulder - left 2 Viewson 97-25-0705KDQB HealthcareImaging Result: AP, and scapular Y of left shoulder show humeral head to be well centered in the glenoid fossa without evidence of fracture or dislocation or degeneration. The acromioclavicular joint was on remarkable. Lung hutchinson visualized on today's x-ray showed excellent lung markings. Impression no acute bony process left shoulder. [facility] HealthcareRadiology Study observation (narrative)[facility] HealthcareLaboratory - Chemistry and Chemistry - challengeon 04-28-4076Gjec T4 [Mass/Vol]1.53 ng/dL0.82 - 1.77 ng/dLNOMS HealthcareTSH Qn0.319 m[IU]/LLowNOMS HealthcareNo Panel Informationon 63-97-5436JQZKGHCILNYZO PQJTSNGH9GKKP HealthcareACINETOBACTER BAUMANIINot detectedNOMS HealthcareCANDIDA ALBICANS, PARAPSILOSIS, RKQVUEXJVN5OEFQ HealthcareCANDIDA ALBICANS, PARAPSILOSIS, TROPICALISNot detectedNOMS HealthcareCANDIDA WCTDHAES6QUOO HealthcareCANDIDA GLABRATANot detectedNOMS HealthcareCANDIDA IGFFSD0WFPG HealthcareCANDIDA KRUSEI Not detectedNOMS HealthcareCITROBACTER VDILZGYY5VHDI HealthcareCITROBACTER FREUNDIINot detectedNOMS HealthcareDFR (A1, A5), SUL (1,2)23.552AbnormalNOMS HealthcareDFR (A1, A5), SUL (1,2)DetectedAbnormalNOMS HealthcareENTEROBACTER AEROGENES, BMMBDRB7TCJQ HealthcareENTEROBACTER AEROGENES, CLOACAENot detected NOMS HealthcareENTEROCOCCUS FAECALIS, NBSUGZW6SZOM HealthcareENTEROCOCCUS FAECALIS, FAECIUMNot detectedNOMS HealthcareESCHERICHIA COLI23.316AbnormalNOMS HealthcareESCHERICHIA COLIDetectedAbnormalNOMS HealthcareInterpretation and review of laboratory resultsAbnormalNOMS HealthcareKLEBSIELLA PNEUMONIAE, SXHLPNN2DJHF HealthcareKLEBSIELLA PNEUMONIAE, OXYTOCANot detectedNOMS Healthcare MORGANELLA LCUYPIHP2ZXNF HealthcareMORGANELLA MORGANIINot detectedNOMS HealthcarePROTEUS MIRABILIS, AOMDLMCQ2WSVM HealthcarePROTEUS MIRABILIS, VULGARIS Not detectedNOMS HealthcarePSEUDOMONAS TUMXFKBPUP9RAXE HealthcarePSEUDOMONAS AERUGINOSANot detectedNOMS HealthcareSERRATIA EGTHQCFMTM6CYKD HealthcareSERRATIA MARCESCENSNot detectedNOMS HealthcareSTAPHYLOCOCCUS DJDFPY4NACP Healthcare STAPHYLOCOCCUS AUREUSNot detectedNOMS HealthcareSTAPHYLOCOCCUS EPIDERMIDIS, HAEMOLYTICUS, LUGDUNENSIS, SAPROPHYTICUS (LXGYR0ALSL HealthcareSTAPHYLOCOCCUS EPIDERMIDIS, HAEMOLYTICUS, LUGDUNENSIS, SAPROPHYTICUS (URINANot detectedNOMS HealthcareSTREPTOCOCCUS AGALACTIAE (GROUP B STREP)0NOMS HealthcareSTREPTOCOCCUS AGALACTIAE (GROUP B STREP)Not detectedNOMS HealthcareSTREPTOCOCCUS PYOGENES (GROUP A STREP)0NOMS HealthcareSTREPTOCOCCUS PYOGENES (GROUP A STREP)Not detectedNOMS HealthcareNOMS HealthcareInterpretation and review of laboratory resultsAbGaylord Hospital HealthcarePerformed at: Lab[address] [id number] [employer] Winder: Rodrigo Pablo PhD, Phone: [phone] Niagara HospitalANA on 52-45-9484Lwztgoh Ab Ql (S)NegativeNegativeCrittenton Behavioral HealthAldolaseon 24-27-4118Fxkfgwxu [Catalytic activity/Vol]3.2 mU/mLLow3.3 - 10.3 U/LNOMS HealthcareCKon 36-74-3566ZD [Catalytic activity/Vol]31 U/LLow32 - 182 U/LNOMS HealthcareHemoglobin A1con 43-17-4103ZgE1m (Bld) [Mass fraction]5.6 %4.8 - 5.6 % NOMS HealthcareComment on above:Prediabetes: 5.7 - 6.4 Diabetes: >6.4 Glycemic control for adults with diabetes: <7.0 LYME DISEASE SEROLOGY W/REFLEXon 12-18-2024. burgdorferi IgG+IgM IA Ql (S) NegativeNegativeHE[facility]LEY [facility] HealthcareComment on above:Lyme antibodies not detected. Reflex testing is not indicated. No laboratory evidence of infection with B. burgdorferi (Lyme disease). Negative results may occur in patients recently infected (less than or equal to 14 days) with B. burgdorferi. If recent infection is suspected, repeat testing on a new sample collected in 7 to 14 days is recommended. Myoglobin, serumon 15-51-7493Zbogiviiv [Mass/Vol]23 ng/mLLow25 - 58 ng/mLNOMS HealthcareNo Panel Informationon 05-38-9476Puetmoujuasnpz and review of laboratory resultsAbMarshfield Medical CenterPerformed at: Lab[address] [id number] [employer] Winder: Rodrigo Pablo PhD, Phone: [phone] Niagara Hospital PROTEIN ELECTRO.,Son 16-04-1164Mqoccyy [Mass/Vol]3.3 g/dL2.9 - 4.4 g/dLCrittenton Behavioral HealthAlbumin/Globulin [Mass ratio]1 {ratio}0.7 - 1.7NOCT HealthcareAlpha 1 globulin Elph [Mass/Vol]0.2 g/dL0.0 - 0.4 g/dLNOCT HealthcareAlpha 2 globulin Elph [Mass/Vol]0.9 g/dL0.4 - 1.0 g/dLHE[facility] VALLEY [facility] HealthcareBeta globulin Elph [Mass/Vol]1 g/dL0.7 - 1.3 g/dLHEBER VALLEY MEDICAL [facility]ENTER HealthcareGamma globulin Elph [Mass/Vol]1.1 g/dL0.4 - 1.8 g/dLHEBER VALLEY MEDICAL [facility]ENTER HealthcareGlobulin (S) [Mass/Vol]3.2 g/dL2.2 - 3.9 g/dL NOM HealthcareLaboratory comment Theodore (Report)CommentNOSt. Luke's HospitalComment on above:Protein electrophoresis scan will follow via computer, mail, or parts sales representative delivery. Protein [Mass/Vol]6.5 g/dL6.0 - 8.5 g/dLHEBER VALLEY MED[facility]ENTER HealthcareProtein.monoclonal Elph [Mass/Vol]Not ObservedNot Observed g/dLNOCT HealthcareVitamin B12on 12-18-2024 Cobalamin (Vitamin B12) [Mass/Vol]744 pg/mL232 - 1245 pg/mLNOMS Healthcare Vitamin B6on 24-34-8724Fjkbuopaq phosphate [Mass/Vol]6.2 ug/L3.4 - 65.2 ug/LNOMS HealthcareComment on above:Deficiency: <3.4 Marginal: 3.4 - 5.1 Adequate: >5.1 Test(s) 818782-Fkrummc B6 was developed and its performance characteristics determined by [facility]. It has not been cleared or approved by the Food and Drug Administration. Performed at: Lab[address] [id number] [place] [place] Winder: Curtis Miller MD, Phone: [phone] macro (dipstick) panel (U)on 31-89-6380Crmptetzm, UANegativeNegative - 4(70) +++ mg/dL NOMS HealthcareBlood, UAPositiveNegative - 50 Anthony/mcLNOMS HealthcareClarity, UA CloudyNOMS HealthcareColor, UAYellowNOMS HealthcareGlucose, UANegativeNegative - 2000(110) ++++ mg/dLNOMS HealthcareKetones, UANegativeNegative - 160(16) ++++ mg/dLNOMS HealthcareLeukocytes, UAPositiveNegative - 500+++ Chito/mcLNOMS HealthcareNitrite, UANegativeNegative - PositiveNOMS HealthcarepH, UA65 - 9NOMS HealthcareProtein, UANegativeNegative - 2000(20) ++++ mg/dLNOMS HealthcareSpec Grav, UA1.0051 - 1.03NOMS HealthcareUrobilinogen, UA0.20.2 - 12 mg/dLNOMS HealthcareNOMS HealthcareMR lumbar spine wo conon 88-83-4319UK lumbar spine wo [facility] [place] [address] MRI Report Signed Patient: Adela Hopkins V MR#: [id number] 8 : 1960 Acct:[id number] Age/Sex: 64 / F ADM Date: 10/20/24 Loc: [facility] Room: Type: [facility] Attending Dr: Jazmine Benoit DO Copies to: [...] Zhang Jr., D.OSlade10/20/2024 3:46 PM Dictation Location: [place] [address] Transcribed By: [facility] 10/20/24 1546 Dictated By: Maurilio Zhang Jr, DO 10/20/24 1543 Signed By: 10/20/24 1546[facility] Physician GroupBanneretic resonance imaging reportOrdered By: Maurilio Zhang on 90-04-2892Xyufc reportSOUTHERN OHIO [facility] Main [place] [address] [place] [address] MRI Report Signed Patient: Adela Hopkins V MR#: [id number] : 1960 Acct:[id number] Age/Sex: 64 / F ADM Date: 4 Loc: [facility] Room: Type: [facility] Attending Dr: Jazmine Benoit DO Copies to: [...] foraminal stenosis. Impression dictated by: Maurilio Zhang Jr. D.OSlade10/20/2024 3:46 PM Dictation Location: RADIO-PC-22 Transcribed By: [facility] 10/20/24 1546 Dictated By: Maurilio Zhang Jr, DO 10/20/24 1543 Signed By: 10/20/24 1546 [facility] HospitalX-ray reportOrdered By: Maurilio Zhang on 24-39-9734Urslj reportSOUTHERN OHIO MEDICAL CENTER Main [place] [address] [place] [address] XRay Report Signed Patient: Adela Hopkins V MR#: [id number] : 1960 Acct:[id number] Age/Sex: 64 / F ADM Date: 4 Loc: [facility] Room: Type: [facility] Attending Dr: Jazmine Benoit DO Copies to: [...] DO 10/20/24 1546 Signed By: 10/20/24 1546 [facility] HospitalXR pre/post mri xrayon 84-02-7923UC pre/post mri xraySOUTHERN OHIO [facility] Main [address] [address] XRay Report Signed Patient: Adela Hopkins V MR#: [id number] 8 : 1960 Acct:[id number] Age/Sex: 64 / F ADM Date: 10/20/24 Loc: [facility] Room: Type: [facility] Attending Dr: Jazmine Benoit DO Copies to: [...] Zhang Jr., D.O.10/20/2024 3:46 PM Dictation Location: [place] [address] Transcribed By: [facility] 10/20/24 154 Dictated By: Maurilio Zhang Jr, DO 10/20/24 1546 Signed By: 10/20/24 1546[facility] Physician GroupCA cardiac event monitoron 95-06-6388PV cardiac event monitorSOUTHERN OHIO MEDICAL CENTER Main [address] [address] Cardiac Event Monitor Signed Patient: Adela Hopkins V MR#: [id number] 8 : 1960 Acct:[id number] Age/Sex: 64 / F ADM Date: 08/15/24 Loc: Room: Type: [facility] Attending Dr: Siobhan Whitfield MD Copies to: MD Tata Sorensen MD Ordering Provider: Siobhan Whitfield MD Date of Service: 08/15/24 CA/CA cardiac event monitor: 30 day monitor--send to [facility] Heart REFERRING PHYSICIAN: Siobhan Whitfield MD [...] Faulkner MD 09/16/24 1733 Signed By: 09/21/24 1220[facility] Physician GroupNo Panel Informationon 95-29-5035FOLCCrittenton Behavioral HealthActivated partial thromboplastin time (aPTT) in platelet poor plasma by coagulation aOrdered By: Richard Mohan on 08-12-2024 aPTT Coag (PPP) [Time]31.4 s25.1-36.5FOhioHealth Grant Medical CenterComment on above:A hematocrit value greater than 55% may lead to inaccurate results in coagulation testing. Patientshaving hematocrit values >55% require a special collection tube for coagulation studies. Please contact the laboratory at [phone] for redraw instructions.Alanine aminotransferase [Enzymatic activity/volume] in Serum or PlasmaOrdered By: Richard Mohan on 79-24-3543TEV [Catalytic activity/Vol]21 U/LBucyrus Community HospitalALT [Catalytic activity/Vol]Alanine aminotransferase [Enzymatic activity/volume] in Serum or PlasmaBucyrus Community HospitalAlbumin [Mass/volume] in Serum or Plasma by Bromocresol green (BCG) dye binding methoOrdered By: Richard Mohan on 34-21-6312Iqxsysx BCG dye [Mass/Vol]3.9 g/dL3.5-5.7FOhioHealth Grant Medical CenterAlbumin BCG dye [Mass/Vol]Albumin [Mass/volume] in Serum or Plasma by Bromocresol green (BCG) dye binding metho3.5-5.7FOhioHealth Grant Medical CenterAlkaline phosphatase [Enzymatic activity/volume] in Serum or PlasmaOrdered By: Richard Mohan on 70-50-2528BZV [Catalytic activity/Vol]58 U/U54-988PrskchyydBucyrus Community HospitalALP [Catalytic activity/Vol]Alkaline phosphatase [Enzymatic activity/volume] in Serum or Qxouxv66-915EnwzoeufaBucyrus Community HospitalAspartate aminotransferase [Enzymatic activity/volume] in Serum or PlasmaOrdered By: Richard Mohan on 25-07-9209SMJ [Catalytic activity/Vol]24 U/S27-47UbpotoygaBucyrus Community HospitalAST [Catalytic activity/Vol]Aspartate aminotransferase [Enzymatic activity/volume] in Serum or Qldpsd78-39VhtpssauxBucyrus Community HospitalBasophils Auto (Bld) [#/Vol]Ordered By: Richard Mohan on 49-47-2574Mifxiqplr (Bld) [#/Vol]0.0 10*3/uL0.0-0.2 [facility] HospitalBasophils (Bld) [#/Vol]Automated basophil count 0.0-0.2FOhioHealth Grant Medical CenterBasophils/100 WBC Auto (Bld)Ordered By: Richard Mohan on 65-13-1256Pkztmycup/100 WBC (Bld)0.3 %.[facility] HospitalBasophils/100 WBC (Bld)Automated basophil %.[facility] Community HospitalBilirubin.direct [Mass/volume] in Serum or PlasmaOrdered By: Richard Mohan on 59-55-9113Whlxrmilz.direct [Mass/Vol]0.10 mg/dL0.03-0.18 [facility] HospitalBilirubin.direct [Mass/Vol]Bilirubin.direct [Mass/volume] in Serum or Plasma0.03-0.18FOhioHealth Grant Medical Center Bilirubin.total [Mass/volume] in Serum or PlasmaOrdered By: Richard Mohan on 42-12-1971Tnweulxgv [Mass/Vol]0.5 mg/dL0.3-1.0[facility] Bilirubin [Mass/Vol]Bilirubin.total [Mass/volume] in Serum or Plasma0.3-1.0 [facility] HospitalCalcium [Mass/volume] in Serum or PlasmaOrdered By: Richard Mohan on 48-08-7444Vqimtbo [Mass/Vol]8.4 mg/dLLow8.6-10.3 [facility] HospitalCalcium [Mass/Vol]Calcium [Mass/volume] in Serum or PlasmaLow8.6-10.3FOhioHealth Grant Medical CenterCarbon dioxide, total [Moles/volume] in Serum or PlasmaOrdered By: Richard Mohan on 83-38-0068MA5 [Moles/Vol]26.6 mmol/L21.0-31.0[facility] HospitalCO2 [Moles/Vol] Carbon dioxide, total [Moles/volume] in Serum or Wzgspc16.0-31.0[facility] HospitalChloride [Moles/volume] in Serum or PlasmaOrdered By: Richard Mohan on 18-25-4725Gqgeageo [Moles/Vol]105 mmol/V25-318NysaxhxndBucyrus Community HospitalChloride [Moles/Vol]Chloride [Moles/volume] in Serum or Etfbwc98-800NceznmplsBucyrus Community HospitalCreatinine [Mass/volume] in Serum or PlasmaOrdered By: Richard Mohan on 21-41-3261Jrliuylhny [Mass/Vol]0.71 mg/dL0.60-1.20[facility] HospitalCreatinine [Mass/Vol]Creatinine [Mass/volume] in Serum or Plasma0.60-1.20[facility] Eosinophils Auto (Bld) [#/Vol]Ordered By: Richard Mohan on 08-12-2024 Eosinophils (Bld) [#/Vol]0.1 10*3/uL0.0-0.45[facility] Eosinophils (Bld) [#/Vol]Automated eosinophil count0.0-0.45[facility] HospitalEosinophils/100 WBC Auto (Bld)Ordered By: Richard Mohan on 30-09-6452Tglkgbbcgpp/100 WBC (Bld)0.7 %.[facility] Eosinophils/100 WBC (Bld)Automated eosinophil %.[facility] Community HospitalErythrocyte distribution width Auto (RBC) [Ratio]Ordered By: Richard Mohan on 81-94-2882Rapvbtpatms distribution width (RBC) [Ratio]15.0 % 11.9-15.3FOhioHealth Grant Medical CenterErythrocyte distribution width (RBC) [Ratio]Erythrocyte distribution width [Ratio] by Automated count11.9-15.3 [facility] HospitalGlobulin Calc (S) [Mass/Vol]Ordered By: Richard Mohan on 87-27-1509Zlcbaqsp (S) [Mass/Vol]2.8 g/dLBucyrus Community HospitalGlobulin (S) [Mass/Vol]Serum globulin measurement by calculation (mass/volume)[facility] HospitalGlucose [Mass/volume] in Serum or PlasmaOrdered By: Richard Mohan on 18-47-1819Bcqvzyz [Mass/Vol]95 mg/aX13-682 [facility] HospitalComment on above:ADA recommended reference rangeRandom Glucose Reference Range is dependent on time and content of last meal. Glucose of more than 200 mg/dL in a nonstressed, ambulatory subject supports the diagnosisof Diabetes Mellitus.Glucose [Mass/Vol]Glucose [Mass/volume] in Serum or Ugulse49-103XpiwxxwrrBucyrus Community HospitalComment on above:ADA recommended reference rangeRandom Glucose Reference Range is dependent on time and content of last meal. Glucose of more than 200 mg/dL in a nonstressed, ambulatory subject supports the diagnosisof Diabetes Mellitus. Hematocrit Auto (Bld) [Volume fraction]Ordered By: Richard Mohan on 07-41-8410Juqnvlnuqz (Bld) [Volume fraction]31.9 %Low34.0-46.4FOhioHealth Grant Medical CenterHematocrit (Bld) [Volume fraction]Hematocrit [Volume Fraction] of Blood by Automated ljauiYuj89.0-46.4FOhioHealth Grant Medical CenterHemoglobin [Mass/volume] in BloodOrdered By: Richard Mohan on 72-88-3188Kbuanvfvzw (Bld) [Mass/Vol]10.7 g/dLLow11.8-15.4FOhioHealth Grant Medical CenterHemoglobin (Bld) [Mass/Vol]Hemoglobin [Mass/volume] in UreueDvj42.8-15.4FOhioHealth Grant Medical CenterINR in Platelet poor plasma by Coagulation assayOrdered By: Richard Mohan on 71-03-2466VFS Coag (PPP) [Relative time]1.1 {INR}[facility] HospitalComment on above:INR Therapeutic Range A) Pre- [...] time]INR in Platelet poor plasma by Coagulation assayBucyrus Community Hospital Comment on above:INR Therapeutic Range A) [...] by Automated counOrdered By: Richard Mohan on 21-15-7255PXF corrected for nucl RBC Auto (Bld) [#/Vol]7.5 10*3/uL3.8-11.6FOhioHealth Grant Medical CenterWBC corrected for nucl RBC Auto (Bld) [#/Vol]Leukocytes [#/volume] corrected for nucleated erythrocytes in Blood by Automated coun3.8-11.6FOhioHealth Grant Medical CenterLymphocytes Auto (Bld) [#/Vol]Ordered By: Richard Mohan on 65-97-3974Bsfidfhqazi (Bld) [#/Vol]1.0 10*3/uL1.00-4.8[facility] HospitalLymphocytes (Bld) [#/Vol]Lymphocytes [#/volume] in Blood by Automated count1.00-4.8[facility] HospitalLymphocytes/100 WBC Auto (Bld)Ordered By: Richard Mohan on 99-33-1970Uzltuqhgwca/100 WBC (Bld) 13.2 %.[facility] Community HospitalLymphocytes/100 WBC (Bld)Lymphocytes/100 leukocytes in Blood by Automated count.[facility] Auto (RBC) [Entitic mass]Ordered By: Richard Mohan on 79-19-0618SVM (RBC) [Entitic mass]31.1 pg24.7-34.3FWayne Hospital (RBC) [Entitic mass]MCH [Entitic mass] by Automated count24.7-34.3FOhioHealth Mansfield Hospital Auto (RBC) [Mass/Vol]Ordered By: Richard Mohan on 04-63-3076FVLT (RBC) [Mass/Vol]33.4 g/dL32.0-35.0[facility] (RBC) [Mass/Vol]MCHC [Mass/volume] by Automated count32.0-35.0 [facility] Auto (RBC) [Entitic vol]Ordered By: Richard Mohan on 43-13-7386SCF (RBC) [Entitic vol]92.9 sP56-222DafeqgvfeUniversity Hospitals Portage Medical CenterV (RBC) [Entitic vol]MCV [Entitic volume] by Automated count 80-100[facility] HospitalMonocyte distribution width [Entitic volume] in Blood by AutomatedOrdered By: Richard Mohan on 88-15-0633Cnqmousx distribution width Auto (Bld) [Entitic vol]27.47 %High0.00-20.00[facility] HospitalComment on above:For adults in ED, MDW > 20.0 may be associated with a higher risk of sepsis during the first 12 hrs of hospital admissionMonocyte distribution width Auto (Bld) [Entitic vol]Monocyte distribution width [Entitic volume] in Blood by AutomatedHigh0.00-20.00[facility] HospitalComment on above:For adults in ED, MDW > 20.0 may be associated with a higher risk of sepsis during the first 12 hrs of hospital admissionMonocytes Auto (Bld) [#/Vol]Ordered By: Richard Mohan on 08-12-2024 Monocytes (Bld) [#/Vol]0.6 10*3/uL0.0-0.8[facility] Monocytes (Bld) [#/Vol]Automated blood monocyte count0.0-0.8[facility] HospitalMonocytes/100 WBC Auto (Bld)Ordered By: Richard Mohan on 29-13-9737Qqfywkprh/100 WBC (Bld)7.8 %.[facility] Monocytes/100 WBC (Bld)Automated monocyte %.[facility] Natriuretic peptide B [Mass/Vol]Ordered By: Richard Mohan on 08-12-2024 Natriuretic peptide B (Bld) [Mass/Vol]348.0 pg/mLHigh5-100[facility] HospitalNatriuretic peptide B (Bld) [Mass/Vol]BNP ser/plasHigh5-100 [facility] HospitalNeutrophils Auto (Bld) [#/Vol]Ordered By: Richard Mohan on 61-03-4103Fwixesdkthu (Bld) [#/Vol]5.9 10*3/uL1.8-7.7 [facility] HospitalNeutrophils (Bld) [#/Vol]Neutrophils [#/volume] in Blood by Automated count1.8-7.7FOhioHealth Grant Medical Center Neutrophils/100 WBC Auto (Bld)Ordered By: Richard Mohan on 08-12-2024 Neutrophils/100 WBC (Bld)78.0 %.[facility] HospitalNeutrophils/100 WBC (Bld)Automated neutrophil %.[facility] HospitalNo Panel InformationOrdered By: Richard Mohan on 00-93-2951Nxruizjag GFR (CKD-EPI)> 60.0 mL/MinBucyrus Community HospitalPharmacy Creatinine Clearance (Chem 86.52[facility] HospitalNucleated erythrocytes [Presence] in Blood by Automated countOrdered By: Richard Mohan on 58-68-6798Oisajayhh RBC Auto Ql (Bld)0.1 /100{WBC}0-0.5FOhioHealth Grant Medical CenterNucleated RBC Auto Ql (Bld)Nucleated erythrocytes [Presence] in Blood by Automated count0-0.5 [facility] HospitalPlatelet mean volume Auto (Bld) [Entitic vol] Ordered By: Richard Mohan on 96-95-8122Kvbaldhi mean volume (Bld) [Entitic vol]8.5 fL6.3-10.7FOhioHealth Grant Medical CenterPlatelet mean volume (Bld) [Entitic vol]Platelet mean volume [Entitic volume] in Blood by Automated count 6.3-10.7FOhioHealth Grant Medical CenterPlatelets Auto (Bld) [#/Vol]Ordered By: Richard Mohan on 46-12-7076Jmwraysyt (Bld) [#/Vol]191 10*3/xI171-433 [facility] HospitalPlatelets (Bld) [#/Vol]Platelets [#/volume] in Blood by Automated ryjdv931-536WkdisaleeBucyrus Community HospitalPotassium [Moles/volume] in Serum or PlasmaOrdered By: Richard Mohan on 08-12-2024 Potassium [Moles/Vol]3.9 mmol/L3.5-5.1FOhioHealth Grant Medical CenterPotassium [Moles/Vol]Potassium [Moles/volume] in Serum or Plasma3.5-5.1FOhioHealth Grant Medical CenterProtein [Mass/volume] in Serum or PlasmaOrdered By: Richard Mohan on 94-34-6883Qpjfngw [Mass/Vol]6.7 g/dL6.4-8.9[facility] HospitalProtein [Mass/Vol]Protein [Mass/volume] in Serum or Plasma6.4-8.9 [facility] HospitalProthrombin time (PT)Ordered By: Richard Mohan on 49-10-4042RZ Coag (PPP) [Time]12.2 s9.0-12.9[facility] HospitalComment on above:A hematocrit value greater than 55% may lead to inaccurate results in coagulation testing. Patientshaving hematocrit values >55% require a special collection tube for coagulation studies. Please contact the laboratory at [phone] for redraw instructions.PT Coag (PPP) [Time] Prothrombin time (PT)9.0-12.9[facility] HospitalComment on above:A hematocrit value greater than 55% may lead to inaccurate results in coagulation testing. Patientshaving hematocrit values >55% require a special collection tube for coagulation studies. Please contact the laboratory at [phone] for redraw instructions.RBC Auto (Bld) [#/Vol]Ordered By: Richard Mohan on 28-77-5835ORK (Bld) [#/Vol]3.44 10*6/uLLow3.60-5.00[facility] HospitalRBC (Bld) [#/Vol]Erythrocytes [#/volume] in Blood by Automated countLow 3.60-5.00[facility] Centererum or plasma albumin/globulin mass ratioOrdered By: Richard Mohan on 73-42-2344Onvpwci/Globulin [Mass ratio]1.4 {ratio}[facility] HospitalAlbumin/Globulin [Mass ratio]Serum or plasma albumin/globulin mass ratioSouthwest General Health Centererum or plasma anion gap determinationOrdered By: Richard Mohan on 37-49-2438Eyeyg gap [Moles/Vol]11.3 mmol/L6.0-15.0[facility] HospitalAnion gap [Moles/Vol]Serum or plasma anion gap determination6.0-15.0[facility] Centererum or plasma non-glucuronidated bilirubin measurement (mass/volume)Ordered By: Richard Mohan on 84-95-6221Dkxocbizk.indirect [Mass/Vol]0.4 mg/dLBucyrus Community HospitalBilirubin.indirect [Mass/Vol]Serum or plasma non-glucuronidated bilirubin measurement (mass/volume) [facility] Centerodium [Moles/volume] in Serum or PlasmaOrdered By: Richard Mohan on 76-01-6104Qgsymk [Moles/Vol]139 mmol/X381-738QcuhypgwbSouthwest General Health Centerodium [Moles/Vol]Sodium [Moles/volume] in Serum or Flyffw632-276HliierkjiBucyrus Community HospitalTroponin I.cardiac [Mass/volume] in Serum or Plasma by Detection limit <= 0.01 ng/Ordered By: Richard Mohan on 92-40-1515Kcrocoqn I.cardiac DL <= 0.01 ng/mL [Mass/Vol]5.2 pg/mL0.0-15.0 [facility] HospitalTroponin I.cardiac DL <= 0.01 ng/mL [Mass/Vol] Troponin I.cardiac [Mass/volume] in Serum or Plasma by Detection limit <= 0.01 ng/0.0-15.0[facility] HospitalUrea nitrogen [Mass/volume] in Serum or PlasmaOrdered By: Richard Mohan on 69-12-5832Tlwk nitrogen [Mass/Vol]9 mg/dL06-25[facility] HospitalUrea nitrogen [Mass/Vol]Urea nitrogen [Mass/volume] in Serum or Plasma06-25[facility] HospitalWBC Auto (Bld) [#/Vol]Ordered By: Richard Mohan on 06-88-4406HKM (Bld) [#/Vol]7.5 10*3/uL3.8-11.6FOhioHealth Grant Medical CenterWBC (Bld) [#/Vol]Leukocytes [#/volume] in Blood by Automated count3.8-11.[facility] aPTT in Platelet poor plasma by Coagulation assayOrdered By: Richard Mohan on 57-18-5253oVUL Coag (PPP) [Time]Activated partial thromboplastin time (aPTT) in platelet poor plasma by coagulation a25.1-36.5FOhioHealth Grant Medical Center Comment on above:A hematocrit value greater than 55% may lead to inaccurate results in coagulation testing. Patientshaving hematocrit values >55% require a special collection tube for coagulation studies. Please contact the laboratory at [phone] for redraw instructions.Alanine aminotransferase [Enzymatic activity/volume] in Serum or PlasmaOrdered By: Fartun Tran on 48-13-3164HAA [Catalytic activity/Vol]18 U/LBucyrus Community HospitalALT [Catalytic activity/Vol]Alanine aminotransferase [Enzymatic activity/volume] in Serum or PlasmaBucyrus Community HospitalAlbumin [Mass/volume] in Serum or Plasma by Bromocresol green (BCG) dye binding methoOrdered By: Fartun Tran on 62-50-3077[place] BCG dye [Mass/Vol]3.7 g/dL3.5-5.7FOhioHealth Grant Medical CenterAlbumin BCG dye [Mass/Vol]Albumin [Mass/volume] in Serum or Plasma by Bromocresol green (BCG) dye binding metho3.5-5.7FOhioHealth Grant Medical CenterAlkaline phosphatase [Enzymatic activity/volume] in Serum or PlasmaOrdered By: Fartun Hernandezr on 93-81-9338QTR [Catalytic activity/Vol]57 U/U99-425TemcxuxcbBucyrus Community HospitalALP [Catalytic activity/Vol]Alkaline phosphatase [Enzymatic activity/volume] in Serum or Hhqrqk76-438KggwfnmkfBucyrus Community HospitalAspartate aminotransferase [Enzymatic activity/volume] in Serum or PlasmaOrdered By: Obluh Hernandezr on 78-10-2593RQL [Catalytic activity/Vol]20 U/C19-36PcndtbtypBucyrus Community HospitalAST [Catalytic activity/Vol]Aspartate aminotransferase [Enzymatic activity/volume] in Serum or Fyqsoy06-03XvoorwnslBucyrus Community HospitalBasophils Auto (Bld) [#/Vol]Ordered By: Fartun Tran on 29-27-5618Gqootwehf (Bld) [#/Vol]0.0 10*3/uL0.0-0.2 [facility] HospitalBasophils (Bld) [#/Vol]Automated basophil count 0.0-0.2FOhioHealth Grant Medical CenterBasophils/100 WBC Auto (Bld)Ordered By: Fartun Hernandezr on 21-20-1081Jsxamhscj/100 WBC (Bld)0.3 %.[facility] HospitalBasophils/100 WBC (Bld)Automated basophil %.[facility] HospitalBilirubin.total [Mass/volume] in Serum or PlasmaOrdered By: Fartun Tran on 35-76-3460Ruqkxnmit [Mass/Vol]0.4 mg/dL0.3-1.0[facility] HospitalBilirubin [Mass/Vol]Bilirubin.total [Mass/volume] in Serum or Plasma0.3-1.0[facility] HospitalBlood estimated average glucose determination by estimation from glycated hemoglobinOrdered By: Fartun Tran on 56-55-7830Tvelcpj glucose Estimated from glycated hemoglobin (Bld) [Mass/Vol]Glucose mean value [Mass/volume] in Blood Estimated from glycated hemoglobinBucyrus Community HospitalCalcium [Mass/volume] in Serum or PlasmaOrdered By: Fartun Zavalaomar on 94-58-3404Wzkeqsl [Mass/Vol]8.4 mg/dLLow 8.6-10.3FOhioHealth Grant Medical CenterCalcium [Mass/Vol]Calcium [Mass/volume] in Serum or PlasmaLow8.6-10.3FOhioHealth Grant Medical CenterCarbon dioxide, total [Moles/volume] in Serum or PlasmaOrdered By: Obluh Zavalaomar on 08-11-2024 CO2 [Moles/Vol]25.1 mmol/L21.0-31.0[facility] HospitalCO2 [Moles/Vol]Carbon dioxide, total [Moles/volume] in Serum or Tlodkr22.0-31.0 [facility] HospitalChloride [Moles/volume] in Serum or Plasma Ordered By: Obluh Zavalaomar on 14-88-3305Jzyqnuuz [Moles/Vol]104 mmol/L98-107 [facility] HospitalChloride [Moles/Vol]Chloride [Moles/volume] in Serum or Wtgbzq22-371MuhjcrshpBucyrus Community HospitalCholesterol [Mass/volume] in Serum or PlasmaOrdered By: Obluh Zavalaomar on 68-22-8636Zhlbhycnjdq [Mass/Vol]141 mg/yP036-425RpnftzwabBucyrus Community HospitalComment on above:Chol less than 200 mg/dl low riskChol 201-239 mg/dl borderline riskChol 240 mg/dl and greater high riskCholesterol [Mass/Vol]Cholesterol [Mass/volume] in Serum or Cqkyaz229-842XuxvqiouiBucyrus Community HospitalComment on above:Chol less than 200 mg/dl low riskChol 201-239 mg/dl borderline riskChol 240 mg/dl and greater high riskCholesterol in HDL [Mass/volume] in Serum or PlasmaOrdered By: Obyoselindasally Zavalaomar on 10-28-2632Vwlkyhoijcx in HDL [Mass/Vol]Serum or plasma high density lipoprotein (HDL) cholesterol igyvuxclhol55-58MyosgzlzbBucyrus Community Hospital Comment on above:HDL CHOL ATP-III CLASSIFICATION Cardiovascular RiskHDL > or equal to 60 mg/dL LOWHDL < 40 mg/dL HIGHCholesterol in LDL Calc [Mass/Vol] Ordered By: Obyoselindasally Zavalaomar on 30-18-0619Iovtxvhwakc in LDL [Mass/Vol]73 mg/dL 0-100[facility] HospitalComment on above:LDL ATP III CLASSIFICATIONLDL less than 100 mg/dL OptimalLDL 100-129 mg/dL Near or above helhjscGOA442-008 mg/dL Borderline highLDL 160-189 mg/dL HighLDL greater than 189 mg/dL Very highCholesterol in LDL [Mass/Vol]Cholesterol in LDL [Mass/volume] in Serum or Plasma by calculation0-100[facility] HospitalComment on above:LDL ATP III CLASSIFICATIONLDL less than 100 mg/dL OptimalLDL 100-129 mg/dL Near or above pcdebjnEQN153-059 mg/dL Borderline highLDL 160-189 mg/dL HighLDL greater than 189 mg/dL Very highCholesterol in VLDL Calc [Mass/Vol] Ordered By: yoselincolumbus regional healthcare system Lucasomar on 39-35-1905Ofwxhngiahz in VLDL [Mass/Vol]17 mg/dL [facility] HospitalCholesterol in VLDL [Mass/Vol]Cholesterol in VLDL [Mass/volume] in Serum or Plasma by calculationBucyrus Community HospitalCreatinine [Mass/volume] in Serum or PlasmaOrdered By: [facility] Departmentoma on 95-39-7548Sljhrpfhtf [Mass/Vol]0.98 mg/dL0.60-1.20[facility] HospitalCreatinine [Mass/Vol]Creatinine [Mass/volume] in Serum or Plasma0.60-1.20 [facility] HospitalEosinophils Auto (Bld) [#/Vol]Ordered By: Leobardo Lucasoma on 39-98-6310Sowoizoyilx (Bld) [#/Vol]0.0 10*3/uL0.0-0.45 [facility] HospitalEosinophils (Bld) [#/Vol]Automated eosinophil count0.0-0.45[facility] HospitalEosinophils/100 WBC Auto (Bld) Ordered By: Leobardo Lucasomar on 63-49-6120Mofvjsxjzhs/100 WBC (Bld)0.1 %. [facility] HospitalEosinophils/100 WBC (Bld)Automated eosinophil % .[facility] HospitalErythrocyte distribution width Auto (RBC) [Ratio]Ordered By: Fartun Tran on 49-72-6875Fthmvqqafac distribution width (RBC) [Ratio]15.0 %11.9-15.3FOhioHealth Grant Medical CenterErythrocyte distribution width (RBC) [Ratio]Erythrocyte distribution width [Ratio] by Automated count11.9-15.3FOhioHealth Grant Medical CenterGlobulin Calc (S) [Mass/Vol]Ordered By: Fartun Tran on 16-99-5290Aummfqkg (S) [Mass/Vol]2.6 g/dLBucyrus Community HospitalGlobulin (S) [Mass/Vol]Serum globulin measurement by calculation (mass/volume)[facility] HospitalGlucose [Mass/volume] in Serum or PlasmaOrdered By: Fartun Tran on 08-11-2024 Glucose [Mass/Vol]91 mg/vS34-173PdnkrxuenBucyrus Community HospitalComment on above:ADA recommended reference rangeRandom Glucose Reference Range is dependent on time and content of last meal. Glucose of more than 200 mg/dL in a nonstressed, ambulatory subject supports the diagnosisof Diabetes Mellitus. Glucose [Mass/Vol]Glucose [Mass/volume] in Serum or Xfidiz59-562RkivpgijfBucyrus Community HospitalComment on above:ADA recommended reference rangeRandom Glucose Reference Range is dependent on time and content of last meal. Glucose of more than 200 mg/dL in a nonstressed, ambulatory subject supports the diagnosisof Diabetes Mellitus.Glucose mean value [Mass/volume] in Blood Estimated from glycated hemoglobinOrdered By: Fartun Tran on 08-11-2024 Average glucose Estimated from glycated hemoglobin (Bld) [Mass/Vol]117 mg/dL [facility] HospitalHematocrit Auto (Bld) [Volume fraction]Ordered By: Fartun Tran on 96-17-6009Wdqvtvdwrn (Bld) [Volume fraction]31.0 %Low 34.0-46.4FOhioHealth Grant Medical CenterHematocrit (Bld) [Volume fraction] Hematocrit [Volume Fraction] of Blood by Automated lexpgFhr22.0-46.4FOhioHealth Grant Medical CenterHemoglobin A1c percentageOrdered By: Fartun Hernandez on 70-53-1062KzE1f (Bld) [Mass fraction]5.7 %High4.3-5.6FOhioHealth Grant Medical CenterComment on above:Increased risk for diabetes: 5.7 - 6.4diabetes: >6.4glycemic control for adults with diabetes: <7.0Hemoglobin A1c/Hemoglobin.total in BloodOrdered By: Fartun Hernandezr on 21-34-6537OtL4u (Bld) [Mass fraction]Hemoglobin A1c percentageHigh4.3-5.6FOhioHealth Grant Medical CenterComment on above:Increased risk for diabetes: 5.7 - 6.4diabetes: >6.4glycemic control for adults with diabetes: <7.0Hemoglobin [Mass/volume] in BloodOrdered By: Fartun Tran on 51-95-7563Clnshqtkqy (Bld) [Mass/Vol]10.5 g/dLLow11.8-15.4FOhioHealth Grant Medical CenterHemoglobin (Bld) [Mass/Vol] Hemoglobin [Mass/volume] in UhqkkUrf61.8-15.4FOhioHealth Grant Medical Center Leukocytes [#/volume] corrected for nucleated erythrocytes in Blood by Automated counOrdered By: Fartun Tran on 07-86-8780TWC corrected for nucl RBC Auto (Bld) [#/Vol]6.8 10*3/uL3.8-11.[address] [place], [place] [address]WBC corrected for nucl RBC Auto (Bld) [#/Vol]Leukocytes [#/volume] corrected for nucleated erythrocytes in Blood by Automated coun3.8-11.[address] [place] [address] Lymphocytes Auto (Bld) [#/Vol]Ordered By: Fartun Tran on 08-11-2024 Lymphocytes (Bld) [#/Vol]1.3 10*3/uL1.00-4.8[facility] Lymphocytes (Bld) [#/Vol]Lymphocytes [#/volume] in Blood by Automated count 1.00-4.8[facility] HospitalLymphocytes/100 WBC Auto (Bld)Ordered By: sri David on 13-08-1968Vmsuvoqzjbv/100 WBC (Bld)18.8 %.[facility] HospitalLymphocytes/100 WBC (Bld)Lymphocytes/100 leukocytes in Blood by Automated count.[facility]H Auto (RBC) [Entitic mass]Ordered By: Obluh Zavalaomar on 06-38-1380RHK (RBC) [Entitic mass] 31.0 pg24.7-34.3FOhioHealth Grant Medical CenterMCH (RBC) [Entitic mass]MCH [Entitic mass] by Automated count24.7-34.3FOhioHealth Grant Medical CenterMCHC Auto (RBC) [Mass/Vol]Ordered By: Obyoselindasally Zavalaomar on 13-42-0645GOJB (RBC) [Mass/Vol]33.8 g/dL32.0-35.0[facility] CenterHC (RBC) [Mass/Vol]MCHC [Mass/volume] by Automated count32.0-35.0[facility] HospitalMCV Auto (RBC) [Entitic vol]Ordered By: Obyoselindasally Zavalaomar on 52-43-3853VWU (RBC) [Entitic vol]91.8 xV47-344JnptpdqfjBucyrus Community Hospital MCV (RBC) [Entitic vol]MCV [Entitic volume] by Automated ozksx53-116ItsjdrjbnBucyrus Community HospitalMonocytes Auto (Bld) [#/Vol]Ordered By: Obyoselindah Lucasomar on 04-30-0538Aksfoynoa (Bld) [#/Vol]0.6 10*3/uL0.0-0.8[facility] HospitalMonocytes (Bld) [#/Vol]Automated blood monocyte count0.0-0.8[facility] HospitalMonocytes/100 WBC Auto (Bld)Ordered By: Obyoselindasally Zavalaomar on 27-93-9535Cfxjikhau/100 WBC (Bld)9.1 %.[facility] Monocytes/100 WBC (Bld)Automated monocyte %.[facility] Neutrophils Auto (Bld) [#/Vol]Ordered By: Obyoselindasally Zavalaomar on 08-11-2024 Neutrophils (Bld) [#/Vol]4.9 10*3/uL1.8-7.7FOhioHealth Grant Medical Center Neutrophils (Bld) [#/Vol]Neutrophils [#/volume] in Blood by Automated count 1.8-7.7FOhioHealth Grant Medical CenterNeutrophils/100 WBC Auto (Bld)Ordered By: Fartun Tran on 94-09-3614Hnxmbfahnkq/100 WBC (Bld)71.7 %.[facility] HospitalNeutrophils/100 WBC (Bld)Automated neutrophil %.[facility] HospitalNo Panel InformationOrdered By: Fartun Tran on 09-19-7028Rekqttdxx GFR (CKD-EPI)> 60.0 mL/MinBucyrus Community Hospital Pharmacy Creatinine Clearance (Chem65.91[facility] Nucleated erythrocytes [Presence] in Blood by Automated countOrdered By: Fartun Tran on 67-81-0058Qlqkdvhpf RBC Auto Ql (Bld)0.2 /100{WBC}0-0.5FOhioHealth Grant Medical CenterNucleated RBC Auto Ql (Bld)Nucleated erythrocytes [Presence] in Blood by Automated count0-0.5FOhioHealth Grant Medical Center Platelet mean volume Auto (Bld) [Entitic vol]Ordered By: Fartun Tran on 74-09-5791Gmwglnkm mean volume (Bld) [Entitic vol]8.8 fL6.3-10.7FOhioHealth Grant Medical CenterPlatelet mean volume (Bld) [Entitic vol]Platelet mean volume [Entitic volume] in Blood by Automated count6.3-10.7FOhioHealth Grant Medical CenterPlatelets Auto (Bld) [#/Vol]Ordered By: Fartun Tran on 19-02-4587Gvxrhmwlm (Bld) [#/Vol]193 10*3/tS006-373QgdrcmmvdBucyrus Community HospitalPlatelets (Bld) [#/Vol]Platelets [#/volume] in Blood by Automated count 150-450[facility] HospitalPotassium [Moles/volume] in Serum or PlasmaOrdered By: Fartun Tran on 80-31-6441Rrmpplrsk [Moles/Vol]3.9 mmol/L 3.5-5.1FOhioHealth Grant Medical CenterPotassium [Moles/Vol]Potassium [Moles/volume] in Serum or Plasma3.5-5.1FOhioHealth Grant Medical CenterProtein [Mass/volume] in Serum or PlasmaOrdered By: Fartun Tran on 08-11-2024 Protein [Mass/Vol]6.3 g/dLLow6.4-8.9[facility] HospitalProtein [Mass/Vol]Protein [Mass/volume] in Serum or PlasmaLow6.4-8.9[facility] HospitalRBC Auto (Bld) [#/Vol]Ordered By: Obluh Zavalaomar on 68-98-2026KUU (d) [#/Vol]3.37 10*6/uLLow3.60-5.00[facility] HospitalRBC (d) [#/Vol]Erythrocytes [#/volume] in Blood by Automated countLow3.60-5.00[facility] Centererum or plasma albumin/globulin mass ratioOrdered By: Fartun Tran on 04-76-8477Hhjhxgt/Globulin [Mass ratio]1.4 {ratio}[facility] HospitalAlbumin/Globulin [Mass ratio]Serum or plasma albumin/globulin mass ratioSouthwest General Health Centererum or plasma anion gap determinationOrdered By: Fartun Tran on 43-64-4133Sxlrt gap [Moles/Vol]10.8 mmol/L6.0-15.0[facility] HospitalAnion gap [Moles/Vol]Serum or plasma anion gap determination6.0-15.0[facility] Centererum or plasma high density lipoprotein (HDL) cholesterol measurementOrdered By: Fartun Tran on 02-91-7776Xfvalavgzxk in HDL [Mass/Vol]50 mg/yA03-54UnbfnbvpmBucyrus Community HospitalComment on above:HDL CHOL ATP-III CLASSIFICATION Cardiovascular RiskHDL > or equal to 60 mg/dL LOWHDL < 40 mg/dL HIGHSerum or plasma total cholesterol/high density lipoprotein (HDL) cholesterol mass ratOrdered By: Fartun Tran on 08-11-2024 Cholesterol.total/Cholesterol in HDL [Mass ratio]2.8 {ratio}<5.0[facility] HospitalCholesterol.total/Cholesterol in HDL [Mass ratio]Serum or plasma total cholesterol/high density lipoprotein (HDL) cholesterol mass rat<5.0 [facility] Centerodium [Moles/volume] in Serum or PlasmaOrdered By: yoselinH[facility] on 02-46-2004Yelisa [Moles/Vol]136 mmol/B241-183KjrpktmriSouthwest General Health Centerodium [Moles/Vol]Sodium [Moles/volume] in Serum or Uxlgxh114-405VlotsgbioBucyrus Community HospitalThyrotropin [Units/volume] in Serum or PlasmaOrdered By: [facility] on 64-45-3402JZH Qn0.39 m[IU]/LLow 0.45-5.33[facility] HospitalTSH QnThyrotropin [Units/volume] in Serum or PlasmaLow0.45-5.33[facility] HospitalTriglyceride [Mass/volume] in Serum or PlasmaOrdered By: [facility] on 08-11-2024 Triglyceride [Mass/Vol]89 mg/dL0-149[facility] HospitalComment on above:TRIG ATP III CLASSIFICATIONTRIG less than 150 mg/dL NormalTRIG 150-199 mg/dL Borderline highTRIG 200-500 mg/dL High TRIG greater than 500 mg/dL Very highStandard traceable to the Center for Disease Conrtrol and Prevention (CDC) test method.Triglyceride [Mass/Vol]Triglyceride [Mass/volume] in Serum or Plasma 0-149[facility] HospitalComment on above:TRIG ATP III CLASSIFICATIONTRIG less than 150 mg/dL NormalTRIG 150-199 mg/dL Borderline highTRIG 200-500 mg/dL High TRIG greater than 500 mg/dL Very highStandard traceable to the Center for Disease Conrtrol and Prevention (CDC) test method. Troponin I.cardiac [Mass/volume] in Serum or Plasma by Detection limit <= 0.01 ng/Ordered By: [facility] on 96-57-0385Vypzbyxp I.cardiac DL <= 0.01 ng/mL [Mass/Vol]4.6 pg/mL0.0-15.0[facility] HospitalTroponin I.cardiac DL <= 0.01 ng/mL [Mass/Vol]Troponin I.cardiac [Mass/volume] in Serum or Plasma by Detection limit <= 0.01 ng/0.0-15.0[facility] HospitalUrea nitrogen [Mass/volume] in Serum or PlasmaOrdered By: Fartun Tran on 09-76-2329Plmo nitrogen [Mass/Vol]17 mg/dL06-25[facility] Urea nitrogen [Mass/Vol]Urea nitrogen [Mass/volume] in Serum or Plasma06-25 [facility] HospitalWBC Auto (Bld) [#/Vol]Ordered By: Obluh Zavalaomar on 10-34-6333RBV (Bld) [#/Vol]6.8 10*3/uL3.8-11.6FOhioHealth Grant Medical CenterWBC (Bld) [#/Vol]Leukocytes [#/volume] in Blood by Automated count 3.8-11.6FOhioHealth Grant Medical CenterActivated partial thromboplastin time (aPTT) in platelet poor plasma by coagulation aOrdered By: Redd Salazar on 89-62-8305qGLF Coag (PPP) [Time]30.0 s25.1-36.5FOhioHealth Grant Medical Center Comment on above:A hematocrit value greater than 55% may lead to inaccurate results in coagulation testing. Patientshaving hematocrit values >55% require a special collection tube for coagulation studies. Please contact the laboratory at [phone] for redraw instructions.Alanine aminotransferase [Enzymatic activity/volume] in Serum or PlasmaOrdered By: Redd Salazar on 08-10-2024 ALT [Catalytic activity/Vol]21 U/L7-52[facility] HospitalAlbumin [Mass/volume] in Serum or Plasma by Bromocresol green (BCG) dye binding metho Ordered By: Redd Salazar on 53-05-0690Yivdsno BCG dye [Mass/Vol]4.1 g/dL 3.5-5.7FOhioHealth Grant Medical CenterAlkaline phosphatase [Enzymatic activity/volume] in Serum or PlasmaOrdered By: Redd Salazar on 08-10-2024 ALP [Catalytic activity/Vol]66 U/V48-765BuhciabtrBucyrus Community Hospital Aspartate aminotransferase [Enzymatic activity/volume] in Serum or PlasmaOrdered By: Redd Salazar on 47-01-4308HXN [Catalytic activity/Vol]22 U/L13-39 [facility] HospitalBasophils Auto (Bld) [#/Vol]Ordered By: Redd Salazar on 31-55-5190Bvsxknrtm (Bld) [#/Vol]0.0 10*3/uL0.0-0.2 [facility] HospitalBasophils/100 WBC Auto (Bld)Ordered By: Redd Salazar on 23-63-1151Ouebpelqf/100 WBC (Bld)0.6 %.[facility] HospitalBilirubin.direct [Mass/volume] in Serum or PlasmaOrdered By: Redd Salazar on 03-65-6836Jixbngrbw.direct [Mass/Vol]0.10 mg/dL0.03-0.18 [facility] HospitalBilirubin.direct [Mass/Vol]Bilirubin.direct [Mass/volume] in Serum or Plasma0.03-0.18FOhioHealth Grant Medical Center Bilirubin.total [Mass/volume] in Serum or PlasmaOrdered By: Redd Salazar on 16-60-6755Hedqzucfl [Mass/Vol]0.7 mg/dL0.3-1.0[facility] COVID CepheidOrdered By: Redd Salazar on 47-35-4338YQGM-CoV-2 (COVID-19) Ab IA QlPositiveAbnormalNegCleveland Clinic Mentor HospitalComment on above: This is a duplicate Cepheid Xpert Xpress CoV-2/Flu/RSV Plus RNA by RT-PCR result to be used for statistical tracking purpose only.SARS-CoV-2 (COVID-19) Ab IA Ql COVID CepheidAbnormalNegativeBucyrus Community HospitalComment on above: This is a duplicate Cepheid Xpert Xpress CoV-2/Flu/RSV Plus RNA by RT-PCR result to be used for statistical tracking purpose only.SARS-CoV-2 (COVID-19) RNA DEYSI+probe Ql (Unsp spec)[facility] HospitalCalcium [Mass/volume] in Serum or PlasmaOrdered By: Redd Salazar on 04-87-5943Glehyov [Mass/Vol] 8.8 mg/dL8.6-10.3FOhioHealth Grant Medical CenterCarbon dioxide, total [Moles/volume] in Serum or PlasmaOrdered By: Redd Salazar on 70-97-1205JU0 [Moles/Vol]25.8 mmol/L21.0-31.0[facility] HospitalChloride [Moles/volume] in Serum or PlasmaOrdered By: Redd Salazar on 08-10-2024 Chloride [Moles/Vol]107 mmol/J21-174SfzyxfvcoBucyrus Community HospitalCreatine kinase [Enzymatic activity/volume] in Serum or PlasmaOrdered By: Redd Salazar on 82-89-4808MC [Catalytic activity/Vol]51 U/K05-848IbxicrfslBucyrus Community HospitalCK [Catalytic activity/Vol]Creatine kinase [Enzymatic activity/volume] in Serum or Tlhqpk46-921RsmrpszydBucyrus Community Hospital Creatinine [Mass/volume] in Serum or PlasmaOrdered By: Redd Salazar on 33-01-5657Ztksdfwjhf [Mass/Vol]0.89 mg/dL0.60-1.20[facility] HospitalEosinophils Auto (Bld) [#/Vol]Ordered By: Redd Salazar on 08-10-2024 Eosinophils (Bld) [#/Vol]0.1 10*3/uL0.0-0.45[facility] Eosinophils/100 WBC Auto (Bld)Ordered By: Redd Salazar on 08-10-2024 Eosinophils/100 WBC (Bld)0.7 %.[facility] HospitalErythrocyte distribution width Auto (RBC) [Ratio]Ordered By: Redd Salazar on 08-10-2024 Erythrocyte distribution width (RBC) [Ratio]14.8 %11.9-15.3FOhioHealth Grant Medical CenterGlobulin Calc (S) [Mass/Vol]Ordered By: Redd Salazar on 76-72-9355Ipyzsajg (S) [Mass/Vol]2.7 g/dLBucyrus Community Hospital Glucose [Mass/volume] in Serum or PlasmaOrdered By: Redd Salazar on 04-78-4651Hgphcgg [Mass/Vol]97 mg/rL78-018LlkopryekBucyrus Community Hospital Comment on above:ADA recommended reference rangeRandom Glucose Reference Range is dependent on time and content of last meal. Glucose of more than 200 mg/dL in a nonstressed, ambulatory subject supports the diagnosisof Diabetes Mellitus. Hematocrit Auto (Bld) [Volume fraction]Ordered By: Redd Salazar on 05-39-1962Raddotyexo (Bld) [Volume fraction]34.8 %34.0-46.4FOhioHealth Grant Medical CenterHemoglobin [Mass/volume] in BloodOrdered By: Redd Salazar on 12-92-9171Nshlzktkgh (Bld) [Mass/Vol]11.7 g/dLLow11.8-15.4FOhioHealth Grant Medical CenterINR in Platelet poor plasma by Coagulation assayOrdered By: Redd Salazar on 67-37-7732BEN Coag (PPP) [Relative time]1.0 {INR}[facility] HospitalComment on above:INR Therapeutic Range A) Pre- [...] time]INR in Platelet poor plasma by Coagulation assayBucyrus Community Hospital Comment on above:INR Therapeutic Range A) [...] by Automated counOrdered By: Redd Salazar on 59-60-4260OIP corrected for nucl RBC Auto (Bld) [#/Vol]7.6 10*3/uL3.8-11.6FOhioHealth Grant Medical CenterLipase [Enzymatic activity/volume] in Serum or PlasmaOrdered By: Redd Salazar on 08-55-5468Fmpbtx [Catalytic activity/Vol]12.0 U/L11.0-82.0[facility] HospitalLipase [Catalytic activity/Vol]Lipase [Enzymatic activity/volume] in Serum or Fxgjyq29.0-82.0[facility] Lymphocytes Auto (Bld) [#/Vol]Ordered By: Redd Salazar on 08-10-2024 Lymphocytes (Bld) [#/Vol]0.6 10*3/uLLow1.00-4.8[facility] Lymphocytes/100 WBC Auto (Bld)Ordered By: Redd Salazar on 08-10-2024 Lymphocytes/100 WBC (Bld)8.2 %.[facility] HospitalMCH Auto (RBC) [Entitic mass]Ordered By: Redd Salazar on 32-02-6441WLZ (RBC) [Entitic mass]30.8 pg24.7-34.3FOhioHealth Grant Medical CenterMCHC Auto (RBC) [Mass/Vol] Ordered By: Redd Salazar on 89-36-0487LOFH (RBC) [Mass/Vol]33.5 g/dL 32.0-35.0[facility] HospitalMCV Auto (RBC) [Entitic vol]Ordered By: Redd Salazar on 41-41-7916VUG (RBC) [Entitic vol]91.9 uV10-632GggkmgyxpBucyrus Community HospitalMonocyte distribution width [Entitic volume] in Blood by AutomatedOrdered By: Redd Salazar on 34-85-4865Boreiqai distribution width Auto (Bld) [Entitic vol]23.64 %High0.00-20.00[facility] Comment on above:For adults in ED, MDW > 20.0 may be associated with a higher risk of sepsis during the first 12 hrs of hospital admissionMonocyte distribution width Auto (Bld) [Entitic vol]Monocyte distribution width [Entitic volume] in Blood by AutomatedHigh0.00-20.00[facility] Comment on above:For adults in ED, MDW > 20.0 may be associated with a higher risk of sepsis during the first 12 hrs of hospital admissionMonocytes Auto (Bld) [#/Vol]Ordered By: Redd Salazar on 17-42-0434Zugetmkiw (Bld) [#/Vol]0.3 10*3/uL0.0-0.8[facility] HospitalMonocytes/100 WBC Auto (Bld) Ordered By: Redd Salazar on 21-18-8727Szebbewkj/100 WBC (Bld)4.4 %. [facility] HospitalNatriuretic peptide B [Mass/Vol]Ordered By: Redd Salazar on 05-22-9253Zoeehwrbdxa peptide B (Bld) [Mass/Vol]158.0 pg/mL High5-100[facility] HospitalNatriuretic peptide B (Bld) [Mass/Vol] BNP ser/plasHigh5-100[facility] HospitalNeutrophils Auto (Bld) [#/Vol]Ordered By: Redd Salazar on 40-37-2536Badmhqzquvz (Bld) [#/Vol]6.5 10*3/uL1.8-7.7FOhioHealth Grant Medical CenterNeutrophils/100 WBC Auto (Bld) Ordered By: Redd Salazar on 84-90-8291Nwhsqcutbsc/100 WBC (Bld)86.1 %. [facility] HospitalNo Panel InformationOrdered By: Redd Salazar on 23-65-3181Krjfvdgsh GFR (CKD-EPI)> 60.0 mL/MinBucyrus Community HospitalPharmacy Creatinine Clearance (Chem71.10[facility] HospitalNucleated erythrocytes [Presence] in Blood by Automated countOrdered By: Redd Salazar on 07-00-0110Xuhzhloig RBC Auto Ql (Bld)0.1 /100{WBC}0-0.5 [facility] HospitalPlatelet mean volume Auto (Bld) [Entitic vol] Ordered By: Redd Salazar on 20-96-3648Evjywjfo mean volume (Bld) [Entitic vol]8.3 fL6.3-10.7FOhioHealth Grant Medical CenterPlatelets Auto (Bld) [#/Vol] Ordered By: Redd Salazar on 58-07-0912Ishhpmtlq (Bld) [#/Vol]227 10*3/uL 150-450[facility] HospitalPotassium [Moles/volume] in Serum or PlasmaOrdered By: Redd Salazar on 89-98-8543Wstdouffc [Moles/Vol]4.4 mmol/L 3.5-5.1FOhioHealth Grant Medical CenterProtein [Mass/volume] in Serum or Plasma Ordered By: Redd Salazar on 66-14-9862Estrolc [Mass/Vol]6.8 g/dL6.4-8.9 [facility] HospitalProthrombin time (PT)Ordered By: Redd Salazar on 15-23-9699AC Coag (PPP) [Time]11.5 s9.0-12.9[facility] HospitalComment on above:A hematocrit value greater than 55% may lead to inaccurate results in coagulation testing. Patientshaving hematocrit values >55% require a special collection tube for coagulation studies. Please contact the laboratory at [phone] for redraw instructions.PT Coag (PPP) [Time] Prothrombin time (PT)9.0-12.9[facility] HospitalComment on above:A hematocrit value greater than 55% may lead to inaccurate results in coagulation testing. Patientshaving hematocrit values >55% require a special collection tube for coagulation studies. Please contact the laboratory at [phone] for redraw instructions.RBC Auto (Bld) [#/Vol]Ordered By: Redd Salazar on 86-76-2589OLX (Bld) [#/Vol]3.79 10*6/uL3.60-5.00[facility] HospitalRespiratory specimen influenza A virus, influenza B virus, respiratory syncytical virOrdered By: Redd Salazar on 66-76-6727MXEZ-CoV-2 (COVID-19) RNA DEYSI+probe Ql (Unsp spec)Respiratory specimen influenza A virus, influenza B virus, respiratory syncytical virSouthwest General Health Centererum or plasma albumin/globulin mass ratioOrdered By: Redd Salazar on 08-10-2024 Albumin/Globulin [Mass ratio]1.5 {ratio}[facility] Centererum or plasma anion gap determinationOrdered By: Redd Salazar on 08-10-2024 Anion gap [Moles/Vol]9.6 mmol/L6.0-15.0[facility] Health Centererum or plasma non-glucuronidated bilirubin measurement (mass/volume)Ordered By: Redd Salazar on 54-47-9820Ydpdigpdm.indirect [Mass/Vol]0.6 mg/dLBucyrus Community HospitalBilirubin.indirect [Mass/Vol]Serum or plasma non- glucuronidated bilirubin measurement (mass/volume)[facility] Centerodium [Moles/volume] in Serum or PlasmaOrdered By: Redd Salazar on 31-07-2808Zgtiyz [Moles/Vol]138 mmol/B843-586YfribhxwmBucyrus Community Hospital Troponin I.cardiac [Mass/volume] in Serum or Plasma by Detection limit <= 0.01 ng/Ordered By: Redd Salazar on 63-90-4924Lsawbsyb I.cardiac DL <= 0.01 ng/mL [Mass/Vol]3.3 pg/mL0.0-15.0[facility] HospitalUrea nitrogen [Mass/volume] in Serum or PlasmaOrdered By: Redd Salazar on 27-16-9520Mwkq nitrogen [Mass/Vol]16 mg/dL7-25[facility] HospitalWBC Auto (Bld) [#/Vol]Ordered By: Redd Salazar on 49-22-8590BIT (Bld) [#/Vol]7.6 10*3/uL 3.8-11.6FOhioHealth Grant Medical CenteraPTT in Platelet poor plasma by Coagulation assayOrdered By: Redd Salazar on 13-73-1472gVTW Coag (PPP) [Time]Activated partial thromboplastin time (aPTT) in platelet poor plasma by coagulation a25.1-36.5FOhioHealth Grant Medical CenterComment on above:A hematocrit value greater than 55% may lead to inaccurate results in coagulation testing. Patientshaving hematocrit values >55% require a special collection tube for coagulation studies. Please contact the laboratory at [phone] for redraw instructions.CBC W Auto Differential panel (Bld)on 69-84-0345Yorzecdhu (Bld) [#/Vol]0.0 10*3/uLNOMS HealthcareBasophils/100 WBC (Bld)1 %Not Estab.NOMS HealthcareEosinophils (Bld) [#/Vol]0.1 10*3/uLNOMS HealthcareEosinophils/100 WBC (Bld)2 %Not Estab.NOMS HealthcareErythrocyte distribution width (RBC) [Ratio] 13.1 %11.7 - 15.4 %NOMS HealthcareHematocrit (Bld) [Volume fraction]37.0 %34.0 - 46.6 %NOMS HealthcareHemoglobin (Bld) [Mass/Vol]11.7 g/dL11.1 - 15.9 g/dLNOMS HealthcareImmature granulocytes (Bld) [#/Vol]0.0 10*3/uLNOMS HealthcareImmature granulocytes/100 WBC (Bld)0 %Not Estab.[facility]OMS HealthcareLymphocytes (Bld) [#/Vol] 1.6 10*3/uLNOMS HealthcareLymphocytes/100 WBC (Bld)34 %Not Estab.[facility] MCH (RBC) [Entitic mass]30.5 pg26.6 - 33.0 pgNOSt. Luke's HospitalMCHC (RBC) [Mass/Vol]31.6 g/dL31.5 - 35.7 g/dLNOMS HealthcareMCV (RBC) [Entitic vol]97 fL79 - 97 fLNOCT HealthcareMonocytes (Bld) [#/Vol]0.3 10*3/uLNOMS Healthcare Monocytes/100 WBC (Bld)6 %Not Estab.[facility] HealthcareNeutrophils (Bld) [#/Vol]2.7 10*3/uLNOMS HealthcareNeutrophils/100 WBC (Bld)57 %Not Estab.[facility] Platelets (Bld) [#/Vol]298 10*3/uLNOMS HealthcareRBC (Bld) [#/Vol]3.83 10*6/uL NOMS HealthcareWBC (Bld) [#/Vol]4.7 10*3/uLNOMS HealthcareComprehensive metabolic panelon 36-51-5850Ciaimib [Mass/Vol]4.1 g/dL3.9 - 4.9 g/dLNOCT HealthcareALP [Catalytic activity/Vol]75 U/LNOMS HealthcareALT [Catalytic activity/Vol]15 U/LNOMS HealthcareAST [Catalytic activity/Vol]18 U/LNOMS HealthcareBilirubin [Mass/Vol]0.3 mg/dL0.0 - 1.2 mg/dLNOCT HealthcareCalcium [Mass/Vol]9.2 mg/dL8.7 - 10.3 mg/dLNOCT HealthcareChloride [Moles/Vol]105 mmol/L 96 - 106 mmol/LNOMS HealthcareCO2 [Moles/Vol]24 mmol/L20 - 29 mmol/LNOMS HealthcareCreatinine [Mass/Vol]0.93 mg/dL0.57 - 1.00 mg/dLNOMS Healthcare GFR/1.73 sq M.predicted among non-blacks MDRD (S/P/Bld) [Vol rate/Area]69 mL/min/{1.73_m2}59 - PINF mL/min/1.73NOSt. Luke's HospitalGlobulin (S) [Mass/Vol]2.4 g/dL1.5 - 4.5 g/dLNOCT HealthcareGlucose [Mass/Vol]95 mg/dL70 - 99 mg/dLNOCT HealthcarePotassium [Moles/Vol]4.2 mmol/L3.5 - 5.2 mmol/LNOMS HealthcareProtein [Mass/Vol]6.5 g/dL6.0 - 8.5 g/dLNOCT HealthcareSodium [Moles/Vol]142 mmol/L134 - 144 mmol/LNOMS HealthcareUrea nitrogen [Mass/Vol]11 mg/dL8 - 27 mg/dLNOSt. Luke's HospitalUrea nitrogen/Creatinine [Mass ratio]12 mg/mg12 - 28NOSt. Luke's Hospital Lipid 1996 panelon 60-07-4190Wlnvrlxbygv [Mass/Vol]165 mg/dL100 - 199 mg/dLNOSt. Luke's HospitalCholesterol in HDL [Mass/Vol]59 mg/dL39 - PINF mg/dLNOSt. Luke's Hospital Cholesterol in LDL [Mass/Vol]89 mg/dL0 - 99 mg/dLNOSt. Luke's HospitalCholesterol in VLDL [Mass/Vol]17 mg/dL5 - 40 mg/dLCrittenton Behavioral HealthTriglyceride [Mass/Vol]93 mg/dL0 - 149 mg/dLCrittenton Behavioral HealthMicroalbumin/Creatinine ratio panel (U)on 96-86-7963Djwtxxi DL <= 20 mg/L (U) [Mass/Vol]3.2 ug/mLNot Estab.[facility] Albumin/Creatinine (U) [Mass ratio]3NOCT HealthcareComment on above:Normal: 0 - 29 Moderately increased: 30 - 300 Severely increased: >300 Creatinine (U) [Mass/Vol]102.0 mg/dLNot Estab.[facility] HealthcareNo Panel Informationon 93-74-4677Wahlfpytp at: 01 - [address] [id number] [employer] Winder: Rodrigo Pablo PhD, Phone: [phone] Niagara HospitalUr Microscopic Reflexon 79-37-6284Gmevbvel LM.HPF (Urine sed) [#/Area]Moderate AbnormalNone seen/FewNOMS HealthcareCasts [...] mg/dL0.2 - 1.0 mg/dLNOMS HealthcareEMG 2 Extremitieson 99-19-8100Kunyaujxnhrwxj severeNOMS HealthcareEMG 2 ExtremitiesOrdered By: Jazmnie Beonit on 88-04-5773HQ[facility] Work Phone: N 9-10 Nerveson 23-22-9909Absvsfskboljoa severeNOMS HealthcareNOMS HealthcareTransthoracic echo (TTE) completeon 02-20-[address], [address] [facility], [place] [address] TRANSTHORACIC ECHOCARDIOGRAM REPORT Patient Name: ADELA HOPKINS Reading Physician: [id number] Tata Faulkner MD Study Date: 02/20/2024 Ordering Provider: [id number] IVAN MEJIA MRN/PID: [id number] Fellow: Nurse: Date of /Age: 605/13/1960 / 63 years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: Radah Santos RDCS, RVT Gender: F Additional Staff: Height: 157.48 cm Admit Date: Weight: 99.79 kg Admission Status: BSA / BMI: 1.99 m2 / 40.24 kg/m2 Department Location: [facility] Blood Pressure: 100 /70 mmHg Study Type: TRANSTHORACIC ECHO (TTE) COMPLETE Diagnosis/ICD: Atherosclerotic heart disease of [place] coronary artery without angina pectoris-I25.10; Coronary angioplasty status (PTCA)-Z98.61; Ischemic cardiomyopathy-I25.5; Essential (primary) hypertension-I10; Other fatigue-R53.83; Other abnormalities of breathing-R06.89 Indication: NH and PTCA-01/2021 and 08/2021, Chest Pain, Former Smoker, Obesity CPT Codes: Echo Complete w Full Doppler-03357 Study Detail: The following Echo studies were [...] AoV Mean P.0 mmHg (1.7-11.5mmHg) LVOT Max Robret: 0.84 m/s (<=1.1m/s) AoV VTI: 35.10 cm [...] Max P.4 mmHg PIEDV (more content not included)...[facility], Radiologist, - 02/20/[address], [address] [address] TRANSTHORACIC ECHOCARDIOGRAM REPORT Patient Name: ADELA HOPKINS Reading Physician: [id number] Tata Faulkner MD Study Date: 02/20/2024 Ordering Provider: [id number] IVAN MEJIA MRN/PID: [id number] Fellow: Nurse: Date of /Age: 605/13/1960 / 63 years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 Benny Gender: F Additional Staff: Height: 157.48 cm Admit Date: Weight: 99.79 kg Admission Status: BSA / BMI: 1.99 m2 / 40.24 kg/m2 Department Location: [facility] Blood Pressure: 100 /70 mmHg Study Type: TRANSTHORACIC ECHO (TTE) COMPLETE Diagnosis/ICD: Atherosclerotic heart disease of [place] coronary artery without angina pectoris-I25.10; Coronary angioplasty status (PTCA)-Z98.61; Ischemic cardiomyopathy-I25.5; Essential (primary) hypertension-I10; Other fatigue-R53.83; Other abnormalities of breathing-R06.89 Indication: NH and PTCA-01/2021 and 08/2021, Chest Pain, Former Smoker, Obesity CPT Codes: Echo Complete w Full Doppler-66721 Study Detail: The following Echo studies were [...] mmHg PIEDV: 1.61 m/s PADP: 13.4 mmHg [id number] Tata Faulkner MD Electronically signed on 02/20/2024 at 5:20:30 PM Final [facility] HealthRad[facility] Study observation (narrative)[facility] Transthoracic echo (TTE) completeOrdered By: Radiologist Radiology on 02-20-2024 [facility] Work Phone: us Heart TransthoracicOrdered By: Tata Faulkner on 12-32-6879Kmsvmn Valve Area by Continuity of Peak Velocity1.78 mz9PjnrslscnlGlenbeigh Hospital Work Phone: Aortic Valve Area by Continuity of VTI1.65 cm2 [facility] Work Phone: AV mn grad5.0mmHgUnMercy Hospital Work Phone: AV pk grad8.6mmHMiddletown Hospital Work Phone: AV pk vel1.47 m/[facility] Work Phone: LV A4C EF39.0UnMercy Hospital Work Phone: [phone] cmGlenbeigh Hospital Work Phone: LVOT diam2.00 cmGlenbeigh Hospital Work Phone: [phone] avg E/e' ratio15.20UnMercy Hospital Work Phone: [phone] E/A ratio1.13UnMercy Hospital Work Phone: RVSP16.5mmHgGlenbeigh Hospital Work Phone: [facility] Work Phone: US Heart Transthoracicon 02-20-[address], [place] [address] TRANSTHORACIC ECHOCARDIOGRAM REPORT Patient Name: ADELA Viera Physician: [id number] Tata Faulkner MD Study Date: 02/20/2024 Ordering Provider: [id number] IVAN MEJIA MRN/PID: [id number] Fellow: Nurse: Date of /Age: 605/13/1960 / 63 years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, 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 Gender: F Additional Staff: Height: 157.48 cm Admit Date: Weight: 99.79 kg Admission Status: BSA / BMI: 1.99 m2 / 40.24 kg/m2 Department Location: [facility] Blood Pressure: 100 /70 mmHg Study Type: TRANSTHORACIC ECHO (TTE) COMPLETE Diagnosis/ICD: Atherosclerotic heart disease of [place] coronary artery without angina pectoris-I25.10; Coronary angioplasty status (PTCA)-Z98.61; Ischemic cardiomyopathy-I25.5; Essential (primary) hypertension-I10; Other fatigue-R53.83; Other abnormalities of breathing-R06.89 Indication: NH and PTCA-01/2021 and 08/2021, Chest Pain, Former Smoker, Obesity CPT Codes: Echo Complete w Full Doppler-23169 Study Detail: The following Echo studies were [...] content not included)...Tata Ramey MD - 02/20/2024 [facility] [address] [facility] [facility], [address], [place] [address] TRANSTHORACIC ECHOCARDIOGRAM REPORT Patient Name: ADELA HOPKINS Reading Physician: [id number] Tata Faulkner MD Study Date: 02/20/2024 Ordering Provider: [id number] IVNA Shane ROBERTO MRN/PID: [id number] Fellow: Nurse: Date of /Age: 605/13/1960 / 63 years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, RVT Gender: F Additional Staff: Height: 157.48 cm Admit Date: Weight: 99.79 kg Admission Status: BSA / BMI: 1.99 m2 / 40.24 kg/m2 Department Location: [facility] Blood Pressure: 100 /70 mmHg Study Type: TRANSTHORACIC ECHO (TTE) COMPLETE Diagnosis/ICD: Atherosclerotic heart disease of [place] coronary artery without angina pectoris-I25.10; Coronary angioplasty status (PTCA)-Z98.61; Ischemic cardiomyopathy-I25.5; Essential (primary) hypertension-I10; Other fatigue-R53.83; Other abnormalities of breathing-R06.89 Indication: NH and PTCA-01/2021 and 08/2021, Chest Pain, Former Smoker, Obesity CPT Codes: Echo Complete w Full Doppler-00121 Study Detail: The following Echo studies were [...] mmHg PIEDV: 1.61 m/s PADP: 13.4 mmHg [id number] Tata Faulkner MD Electronically signed on 02/20/2024 at 5:20:30 PM Final [facility] Work Phone: activated partial thromboplastin time (aPTT) in platelet poor plasma by coagulation aOrdered By: Cathy Cheng on 01-16-2024 aPTT Coag (PPP) [Time]26.3 s25.1-36.5FOhioHealth Grant Medical CenterComment on above:A hematocrit value greater than 55% may lead to inaccurate results in coagulation testing. Patientshaving hematocrit values >55% require a special collection tube for coagulation studies. Please contact the laboratory at [phone] for redraw instructions.Alanine aminotransferase [Enzymatic activity/volume] in Serum or PlasmaOrdered By: Cathy Cheng on 43-75-9793DMY [Catalytic activity/Vol]19 U/L7-52[facility] HospitalAlbumin [Mass/volume] in Serum or Plasma by Bromocresol green (BCG) dye binding metho Ordered By: Cathy Cheng on 24-21-8487Vtajdyx BCG dye [Mass/Vol]4.3 g/dL 3.5-5.7FOhioHealth Grant Medical CenterAlkaline phosphatase [Enzymatic activity/volume] in Serum or PlasmaOrdered By: Cathy Cheng on 57-08-6597AHD [Catalytic activity/Vol]77 U/Y61-719UelzfijcwBucyrus Community HospitalAspartate aminotransferase [Enzymatic activity/volume] in Serum or PlasmaOrdered By: Cathy Jonyradha on 17-98-7054ZHC [Catalytic activity/Vol]21 U/L48-83SasxvlcmoBucyrus Community HospitalBasophils Auto (Bld) [#/Vol]Ordered By: Cathy Cheng on 47-12-0619Pjabxafqa (Bld) [#/Vol]0.0 10*3/uL0.0-0.2FOhioHealth Grant Medical CenterBasophils/100 WBC Auto (Bld)Ordered By: Cathy Cheng on 01-16-2024 Basophils/100 WBC (Bld)0.7 %.[facility] HospitalBilirubin Test strip Ql (U)Ordered By: Cathy Cheng on 73-12-1477Qpfanvuyh Ql (U)Negative NegativeBucyrus Community HospitalBilirubin.total [Mass/volume] in Serum or PlasmaOrdered By: Cathy Cheng on 75-34-0842Dodhynnze [Mass/Vol]0.4 mg/dL 0.3-1.0[facility] HospitalCOVID CepheidOrdered By: Cathy Cheng on 75-43-7759JPSS-CoV-2 (COVID-19) Ab IA QlNegativeNegativeBucyrus Community HospitalComment on above:This is a duplicate Cepheid Xpert Xpress CoV- 2/Flu/RSV Plus RNA by RT-PCR result to be used for statistical tracking purpose only.SARS-CoV-2 (COVID-19) RNA DEYSI+probe Ql (Unsp spec)[facility] HospitalCalcium [Mass/volume] in Serum or PlasmaOrdered By: Cathy Cheng on 49-01-2193Opefjpc [Mass/Vol]8.8 mg/dL8.6-10.3FOhioHealth Grant Medical CenterCarbon dioxide, total [Moles/volume] in Serum or PlasmaOrdered By: Cathy Cheng on 11-95-9518HE0 [Moles/Vol]27.2 mmol/L21.0-31.0[facility] HospitalChloride [Moles/volume] in Serum or PlasmaOrdered By: Cathy Cheng on 04-17-7575Omkujcaj [Moles/Vol]107 mmol/D30-509BojpltxipBucyrus Community HospitalColor Auto (U)Ordered By: Cathy Cheng on 01-16-2024 Color (U)YellowYellowBucyrus Community HospitalCreatinine [Mass/volume] in Serum or PlasmaOrdered By: Cathy Cheng on 24-48-8338Nuqrtwcodf [Mass/Vol] 0.88 mg/dL0.60-1.20[facility] HospitalEosinophils Auto (Bld) [#/Vol]Ordered By: Cathy Cheng on 20-35-6272Cergconrrmk (Bld) [#/Vol]0.1 10*3/uL0.0-0.45[facility] HospitalEosinophils/100 WBC Auto (Bld) Ordered By: Cathy Cheng on 17-09-6281Xpvezkcskpi/100 WBC (Bld)1.0 %. [facility] HospitalErythrocyte distribution width Auto (RBC) [Ratio]Ordered By: Cathy Cheng on 10-00-6868Jsgwfnzxipd distribution width (RBC) [Ratio]14.8 %11.9-15.3FOhioHealth Grant Medical CenterGlobulin Calc (S) [Mass/Vol]Ordered By: Cathy Cheng on 73-55-0071Lfyguilg (S) [Mass/Vol]2.9 g/dLBucyrus Community HospitalGlucose [Mass/volume] in Serum or Plasma Ordered By: Cathy Cheng on 03-09-3445Naiojuo [Mass/Vol]76 mg/uT20-793 [facility] HospitalComment on above:ADA recommended reference rangeRandom Glucose Reference Range is dependent on time and content of last meal. Glucose of more than 200 mg/dL in a nonstressed, ambulatory subject supports the diagnosisof Diabetes Mellitus.Hematocrit Auto (Bld) [Volume fraction]Ordered By: Cathy Cheng on 44-88-7759Ncunxffofy (Bld) [Volume fraction]35.7 %34.0-46.4FOhioHealth Grant Medical CenterHemoglobin [Mass/volume] in BloodOrdered By: Cathy Cheng on 80-34-2813Qxqpkonubn (Bld) [Mass/Vol]11.8 g/dL11.8-15.4FOhioHealth Grant Medical CenterINR in Platelet poor plasma by Coagulation assayOrdered By: Cathy Cheng on 51-13-4027JDW Coag (PPP) [Relative time]0.9 {INR}[facility] HospitalComment on above:INR Therapeutic Range A) Pre- [...] strip (U) [Mass/Vol]Ordered By: Cathy Cheng on 21-69-9689Bkgkhhi (U) [Mass/Vol]NegativeNegativeBucyrus Community HospitalLeukocytes [#/volume] corrected for nucleated erythrocytes in Blood by Automated counOrdered By: Cathy Cheng on 40-06-8727QXN corrected for nucl RBC Auto (Bld) [#/Vol]6.8 10*3/uL3.8-11.6FOhioHealth Grant Medical Center Lymphocytes Auto (Bld) [#/Vol]Ordered By: Cathy Cheng on 01-16-2024 Lymphocytes (Bld) [#/Vol]1.8 10*3/uL1.00-4.8[facility] Lymphocytes/100 WBC Auto (Bld)Ordered By: Cathy Cheng on 01-16-2024 Lymphocytes/100 WBC (Bld)26.6 %.[facility] Auto (RBC) [Entitic mass]Ordered By: Cathy Cheng on 24-34-1287ZFR (RBC) [Entitic mass] 30.5 pg24.7-34.3FOhioHealth Grant Medical CenterMCHC Auto (RBC) [Mass/Vol] Ordered By: Cathy Cheng on 44-01-2726WDHA (RBC) [Mass/Vol]33.2 g/dL32.0-35.0 [facility] HospitalMCV Auto (RBC) [Entitic vol]Ordered By: Cathy Cheng on 35-48-6543EFE (RBC) [Entitic vol]91.9 uL95-497ZyszrnsxrBucyrus Community HospitalMonocyte distribution width [Entitic volume] in Blood by AutomatedOrdered By: Cathy Cheng on 80-80-4246Uwqhwoyz distribution width Auto (Bld) [Entitic vol]17.98 %0.00-20.00[facility] Monocytes Auto (Bld) [#/Vol]Ordered By: Cathy Cheng on 86-55-2798Dlfftizmz (Bld) [#/Vol]0.4 10*3/uL0.0-0.8[facility] HospitalMonocytes/100 WBC Auto (Bld)Ordered By: Cathy Cheng on 72-21-0848Xbgjzwkvl/100 WBC (Bld) 6.3 %.[facility] HospitalNatriuretic peptide B [Mass/Vol]Ordered By: Cathy Cheng on 89-39-7175Hddecrtmdac peptide B (Bld) [Mass/Vol]99.0 pg/mL5-100Bu[facility] HospitalNeutrophils Auto (Bld) [#/Vol]Ordered By: Cathy Cheng on 21-78-3859Hphxqdlvunj (Bld) [#/Vol]4.5 10*3/uL1.8-7.7 [facility] HospitalNeutrophils/100 WBC Auto (Bld)Ordered By: Cathy Cheng on 75-81-5148Hlyqlrvztiv/100 WBC (Bld)65.4 %.[facility] HospitalNitrite Test strip Ql (U)Ordered By: Cathy Cheng on 01-16-2024 Nitrite Ql (U)NegativeNegativeBucyrus Community HospitalNo Panel InformationOrdered By: Cathy Cheng on 73-43-8958Sasmplnpp GFR (CKD-EPI)> 60.0 mL/MinBucyrus Community HospitalPharmacy Creatinine Clearance (Chem 73.23Bucyrus Community HospitalNucleated erythrocytes [Presence] in Blood by Automated countOrdered By: Cathy Cheng on 77-62-9400Xmsqwmnud RBC Auto Ql (Bld)0.0 /100{WBC}0-0.5FOhioHealth Grant Medical CenterPlatelet mean volume Auto (Bld) [Entitic vol]Ordered By: Cathy Cheng on 16-66-2875Tqpzther mean volume (Bld) [Entitic vol]8.3 fL6.3-10.7FOhioHealth Grant Medical Center Platelets Auto (Bld) [#/Vol]Ordered By: Cathy Cheng on 56-17-5571Ncwswnoxs (Bld) [#/Vol]295 10*3/lI750-529YezlcbivkBucyrus Community HospitalPotassium [Moles/volume] in Serum or PlasmaOrdered By: Cathy Cheng on 01-16-2024 Potassium [Moles/Vol]4.3 mmol/L3.5-5.1FOhioHealth Grant Medical CenterProtein Auto test strip (U) [Mass/Vol]Ordered By: Cathy hCeng on 95-41-3229Ktgvkgc (U) [Mass/Vol]NegativeNegativeBucyrus Community HospitalProtein [Mass/volume] in Serum or PlasmaOrdered By: Cathy Cheng on 40-66-7625Ilnrmnd [Mass/Vol]7.2 g/dL6.4-8.9[facility] HospitalProthrombin time (PT) Ordered By: Cathy Cheng on 74-89-0136RK Coag (PPP) [Time]11.0 s9.0-12.9 [facility] HospitalComment on above:A hematocrit value greater than 55% may lead to inaccurate results in coagulation testing. Patientshaving hematocrit values >55% require a special collection tube for coagulation studies. Please contact the laboratory at [phone] for redraw instructions. RBC Auto (Bld) [#/Vol]Ordered By: Cathy Cheng on 59-34-9845VQW (Bld) [#/Vol] 3.89 10*6/uL3.60-5.00[facility] Centererum or plasma albumin/globulin mass ratioOrdered By: Cathy Cheng on 01-16-2024 Albumin/Globulin [Mass ratio]1.5 {ratio}[facility] Centererum or plasma anion gap determinationOrdered By: Cathy Cheng on 58-00-1491Lvxsq gap [Moles/Vol]10.1 mmol/L6.0-15.0[facility] Centerodium [Moles/volume] in Serum or PlasmaOrdered By: Cathy Cheng on 80-64-6550Qlttcj [Moles/Vol]140 mmol/Q574-647WyeldiihqSouthwest General Health Centerpecific gravity Auto test strip (U) [Rel density]Ordered By: Cathy Cheng on 01-16-2024 Specific gravity (U) [Rel density]1.0191.001-1.030[facility] HospitalTroponin I.cardiac [Mass/volume] in Serum or Plasma by Detection limit <= 0.01 ng/Ordered By: Cathy Cheng on 72-15-2811Tkvaqmxx I.cardiac DL <= 0.01 ng/mL [Mass/Vol]< 2.3 pg/mL0.0-15.0[facility] HospitalUrea nitrogen [Mass/volume] in Serum or PlasmaOrdered By: Cathy Cheng on 94-46-7826Psxo nitrogen [Mass/Vol]18 mg/dL7-25[facility] Urine clarity by refractometry automatedOrdered By: Cathy Cheng 74-42-0466Xpgxqcf Refractometry automated (U)ClearCleMercy Health St. Elizabeth Youngstown HospitalUrine glucose measurement by automated test strip (mass/volume) Ordered By: Cathy Cheng 35-92-8636Xrlnous Auto test strip (U) [Mass/Vol] Normal mg/dLNoKettering Health SpringfieldUrine hemoglobin detection by automated test stripOrdered By: Cathy Cheng on 02-45-8424Cmbuhumvxg Auto test strip Ql (U)NegativeNegCleveland Clinic Mentor HospitalUrine leukocyte esterase detection by automated test stripOrdered By: Cathy Cheng on 77-65-3261Yhwgzyamf esterase Auto test strip Ql (U)NegativeNegCleveland Clinic Mentor HospitalUrobilinogen Auto test strip (U) [Mass/Vol]Ordered By: Cathy Cheng on 09-40-8563Uslmbsuqovox (U) [Mass/Vol]Normal mg/dLGreen Cross HospitalWBC Auto (Bld) [#/Vol]Ordered By: Cathy Prosper on 66-65-3567VQI (Bld) [#/Vol]6.8 10*3/uL3.8-11.6FOhioHealth Grant Medical CenterpH Auto test strip (U)Ordered By: Cathy Cheng on 63-45-8507zS (U)7.5 [pH]5.0-9.0[facility] HospitalOffice Visit (Cardiology)on 22-10-5183Pervwa-up visitDiagnoses/Problems Assessed CAD (coronary artery disease) (414.00) (I25.10) April 07, 2021 presented with acute inferior NH. At that time had PCI/Nelson proximal RCA with IVUS guidance and provisional PTCA PLV August 23, 2021 mid RCA 50% with negative IFR after a patent stent. Mild/moderate left main with IVUS 40% MLA 2.5x2.5 (ref size 4mm). 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 Agrees to start walking on a treadmill [...] risk assessmenta) No falls within the last yearSaint [facility] Hospital [employer] [address] DO Work Phone: Tobacco use status CPHSb) NoMCoulee Medical Center [employer] 250 DO Work Phone: FREE T4on 44-67-1669Emhs T4 [Mass/Vol]1.07 ng/dLNormal 0.76-1.46[facility] Medical CenterComment on above:Performed By: #### FT4 #### [facility] [address] [place] [address] Dr. Naren OlivasLIPID PROFILEon 27-18-6242HXPX-HDL RATIO [facility] HospitalComment on above:Result Comment: 3.3 - 4.4 LOW RISK 4.4 - 7.1 AVERAGE RISK 7.1 - 11.0 MODERATE RISK >11.0 HIGH RISKPerformed By: #### AST, LIPID, ALT #### [facility] [address] [address] [address] Naren OlivasCholesterol [Mass/Vol]160 mg/dLNormal<=200[facility] Comment on above:Performed By: #### AST, LIPID, ALT #### [facility] [address] [address] [address] Yilan ChangCholesterol in HDL [Mass/Vol]60 mg/nTKhnrjs08-63Kzo Genesis Hospitalment on above:Performed By: #### AST, LIPID, ALT #### [facility] [address] [address] [address] Naren OlivasCholesterol in LDL [Mass/Vol]86.2 mg/dLWilson Street HospitalComment on above:Performed By: #### AST, LIPID, ALT #### [facility] [address] [address] [address] Naren Solitarioestercrystal.total/Cholesterol in HDL [Mass ratio]2.7 {ratio} NormalThe [facility] Medical CenterComment on above:Performed By: #### AST, LIPID, ALT #### [facility] [address] [place] [address] Dr. Naren Daniel NORMAL> or = 60 mg/dl - LOW CARDIOVASCULAR RISK <40 mg/dl - HIGH CARDIOVASCULAR RISKWilson Street HospitalComment on above:Performed By: #### AST, LIPID, ALT #### [facility] [address] [place] [address] Dr. Naren Herrera CALC NORMALSEE BELOWWilson Street HospitalComment on above:Result Comment: <100 mg/dl OPTIMAL 100 - 129 mg/dl NEAR OR ABOVE OPTIMAL 130 - 159 mg/dl BORDERLINE HIGH 160 - 189 mg/dl HIGH >190 mg/dl VERY HIGH Performed By: #### AST, LIPID, ALT #### [facility] [address] [address] [address] Naren OlivasTriglyceride [Mass/Vol]69 mg/dLNormal<=150[facility] Comment on above:Performed By: #### AST, LIPID, ALT #### [facility] [address] [place] [address] Dr. Naren OlivasVLDL CALC13.8 mg/dLNoMcCullough-Hyde Memorial HospitalComment on above: Performed By: #### AST, LIPID, ALT #### [facility] [address] [place] [address] Dr. Naren Richard 23-18-3225DUC [Catalytic activity/Vol]21 U/DCoxrdy69-16XfuRegional Medical CenterComment on above:Performed By: #### AST, LIPID, ALT #### [facility] [address] [address] [address] Naren Woods 93-16-4195DYR [Catalytic activity/Vol]28 U/CTrsvtq69-50Rty [facility] CenterComment on above:Performed By: #### AST, LIPID, ALT #### [facility] [address] [address] [address] Naren Sarah 14-10-9462QDA0.196 uIU/mLCritically low0.358-3.740The [facility] CenterComment on above:Performed By: #### TSH #### [facility] [address] [place] [address] Dr. Naren Fernandez Visit (Cardiology)on 77-28-3221Zgyofy-up visit Diagnoses/Problems Assessed CAD (coronary artery disease) [...] medical therapies as reviewed. She sustained inferior NH in April 2021 with primary PCI of [...] content not included)...NormalUH TouchworksXR Chest 2 Views*on 09-55-9840BZ Chest 2 Views*FINDINGS: No acute cardiac or pulmonary disease is identified. No worrisome mass lesions or infiltrates are seen. No pulmonary edema or pneumothorax is present. Cardiac silhouette size is normal. Skeletal structures are unremarkable. IMPRESSION: No acute cardiac or pulmonary disease. Report reported and signed by IZABELA BROWN on 12/13/2022 1552NomiltonNoecu health roanoke-chowan hospitaln [facility] SpecialistLOGAN MEM[facility] AUTO DIFFon 87-74-1728EXZE #0.0 103/ulNormal0.0-0.1 [facility] CenterComment on above:Performed By: #### BMP #### [facility] [address] [place] [address] Dr. Naren OlivasBasophils/100 WBC (Bld)0.5 %Normal0.2-2.0The [facility] Comment on above:Performed By: #### BMP #### [facility] [address] [place] [address] Dr. Naren Crawford #0.1 103/ulNormal0.0-0.7The [facility] CenterComment on above: Performed By: #### BMP #### [facility] [address] [place] [address] Dr. Naren Bakerosinophils/100 WBC (Bld)1.4 %Normal0.9-7.0The [facility] Comment on above:Performed By: #### BMP #### [facility] [address] [place] [address] Dr. Naren Bakerrythrocyte distribution width (RBC) [Ratio]13.9 %Uejhgq30.0-15.0 [facility] Medical CenterComment on above:Performed By: #### BMP #### [facility] [address] [place] [address] Dr. Naren OlivasHematocrit (Bld) [Volume fraction]36.7 %Hejcvx11.0-48.0The [facility] CenterComment on above:Performed By: #### BMP #### [facility] [address] [place] [address] Dr. Naren OlivasHemoglobin (Bld) [Mass/Vol]11.9 g/dLCritically low12.0-16.0The [facility] CenterComment on above:Performed By: #### BMP #### [facility] [address] [place] [address] Dr. Naren Naqvi #0.03 10e3/ulNormal0.00-0.03The [facility] CenterComment on above:Performed By: #### BMP #### [facility] [address] [place] [address] Dr. Naren Naqvi %0.5 %Normal0.0-0.5The [facility] CenterComment on above: Performed By: #### BMP #### [facility] [address] [place] [address] Dr. Naren Lovett #1.9 103/ulNormal1.2-3.8The [facility] CenterComment on above:Performed By: #### BMP #### [facility] [address] [place] [address] Dr. Naren Steinerhocytes/100 WBC (Bld)29.4 %Tteurf46.5-60.0The [facility] CenterComment on above:Performed By: #### BMP #### [facility] [address] [place] [address] Dr. Naren BlancaUAL DIFF REQNONormalThe [facility] CenterComment on above: Performed By: #### BMP #### [facility] [address] [place] [address] Dr. Naren Muñoz (RBC) [Entitic mass]30.2 lgKtyhfg05.7-34.0The [facility] CenterComment on above:Performed By: #### BMP #### [facility] [address] [place] [address] Dr. Naren Muñoz (RBC) [Mass/Vol]32.4 g/fTDlvlua07.9-35.2The [facility] CenterComment on above:Performed By: #### BMP #### [facility] [address] [place] [address] Dr. Naren Muñoz (RBC) [Entitic vol]93.1 gXKgenbr37.0-99.0The [facility] CenterComment on above:Performed By: #### BMP #### [facility] [address] [place] [address] Dr. Naren Maxwell #0.5 103/ulNormal0.3-0.8The [facility] CenterComment on above:Performed By: #### BMP #### [facility] [address] [place] [address] Dr. Naren Bolandocytes/100 WBC (Bld)7.2 %Normal1.7-12.0The [facility] Comment on above:Performed By: #### BMP #### [facility] [address] [place] [address] Dr. Naren GordonUT #4.0 103/ulNormal1.4-6.5The [facility] CenterComment on above:Performed By: #### BMP #### [facility] [address] [place] [address] Dr. Naren Gordonutrophils/100 WBC (Bld)61.0 %Mawdtc14.0-75.0The [facility] CenterComment on above:Performed By: #### BMP #### [facility] [address] [place] [address] Dr. Naren OlivasPlatelet mean volume (Bld) [Entitic vol]9.5 fLNormal9.5-13.5The [facility] CenterComment on above:Performed By: #### BMP #### [facility] [address] [place] [address] Dr. Naren OlivasPLT281 103/jpTmytuq276-675Cyn [facility] CenterComment on above: Performed By: #### BMP #### [facility] [address] [place] [address] Dr. Naren OlivasRBC3.94 106/ulCritically low4.20-5.40The Genesis Hospitalment on above:Performed By: #### BMP #### [facility] [address] [place] [address] Dr. Naren OlivasWBC6.5 103/ulNormal4.0-11.0The [facility] CenterComtrinity health grand [facility] hospital on above: Performed By: #### BMP #### [facility] [address] [place] [address] Dr. Naren OlivasFERRITINkaren 86-56-5144Moofycov [Mass/Vol]89.0 ng/mLNormal8.0-252.0 The [facility] CenterComment on above:Performed By: #### BMP #### [facility] [address] [place] [address] Dr. Naren Pablo AND TIBCon 12-05-2022% ATPTULNPLG69.3 %NormalThe [facility] CenterComment on above:Performed By: #### BMP #### [facility] [address] [place] [address] Dr. Naren Pablo [Mass/Vol]52.0 ug/fXQluqtj80.0-170.0The [facility] Comment on above:Performed By: #### BMP #### [facility] [address] [place] [address] Dr. Naren ConcepcionC AZQVKZ040.0 ug/tGFowblo858.0-450.0The [facility] Comment on above:Performed By: #### BMP #### [facility] [address] [place] [address] Dr. Naren OlivasPROF 14(COMP METB)on 77-91-3246Fsqriox [Mass/Vol]3.4 g/dLNormal 3.4-5.0The [facility] CenterComment on above:Performed By: #### BMP #### [facility] [address] [place] [address] Dr. Naren OlivasAlbumin/Globulin [Mass ratio]1.0 {ratio}NormalThe [facility] CenterComment on above:Performed By: #### BMP #### [facility] [address] [place] [address] Dr. Naren Pang [Catalytic activity/Vol]72 U/WVbheua45-655Uof [facility] CenterComment on above:Performed By: #### BMP #### [facility] [address] [place] [address] Dr. Naren Burleson [Catalytic activity/Vol]23 U/TChkvwr69-21Mfc [facility] CenterComment on above:Performed By: #### BMP #### [facility] [address] [place] [address] Dr. Naren Jenkins gap [Moles/Vol]13.2 mmol/LNormalThe [facility] Comment on above:Performed By: #### BMP #### [facility] [address] [address] [address] Naren OlivasAST [Catalytic activity/Vol]19 U/PRmpner78-31Hqz [facility] CenterComment on above:Performed By: #### BMP #### [facility] [address] [address] [address] Naren OlivasBilirubin [Mass/Vol]0.4 mg/dLNormal0.2-1.0The [facility] Comment on above:Performed By: #### BMP #### [facility] [address] [address] [address] Naren OlivasCalcium [Mass/Vol]8.7 mg/dLNormal8.5-10.1The [facility] Comment on above:Performed By: #### BMP #### [facility] [address] [place] [address] Dr. Naren OlivasChloride [Moles/Vol]106 mmol/OLmtmjv02-574Soc [facility] Comment on above:Performed By: #### BMP #### [facility] [address] [address] [address] Naren OlivasCO2 [Moles/Vol]26.2 mmol/SAkqzpd49.0-32.0The [facility] Comment on above:Performed By: #### BMP #### [facility] [address] [place] [address] Dr. Naren OlivasCreatinine [Mass/Vol]0.80 mg/dLNormal0.55-1.02The [facility] CenterComment on above:Performed By: #### BMP #### [facility] [address] [address] [address] Naren BakerGFR-AF GEORGIAN>60Normal>=60The [facility] CenterComment on above:Performed By: #### BMP #### [facility] [address] [address] [address] Naren BakerGFR-NON AF GEORGIAN>60Normal>=60The [facility] CenterComment on above:Performed By: #### BMP #### [facility] [address] [address] [address] Naren OlivasGlobulin (S) [Mass/Vol]3.5 g/dLNormHolzer Medical Center – JacksonComment on above:Performed By: #### BMP #### [facility] [address] [address] [address] Naren OlivasGlucose [Mass/Vol]101 mg/vONhddxw31-194Xlu [facility] Comment on above:Performed By: #### BMP #### [facility] [address] [address] [address] Naren OlivasPotassium [Moles/Vol]4.4 mmol/LNormal3.5-5.1The [facility] Comment on above:Performed By: #### BMP #### [facility] [address] [address] [address] Naren OlivasProtein [Mass/Vol]6.9 g/dLNormal6.4-8.2The [facility] Comment on above:Performed By: #### BMP #### [facility] [address] [address] [address] Naren OlivasSodium [Moles/Vol]141 mmol/BNiboec638-354SmvRegional Medical Center Comment on above:Performed By: #### BMP #### [facility] [address] [address] [address] Naren OlivasUrea nitrogen [Mass/Vol]15.0 mg/dLNormal7.0-18.0The [facility] CenterComment on above:Performed By: #### BMP #### [facility] [address] [address] [address] Naren Kirk nitrogen/Creatinine [Mass ratio]18.8 mg/mgNormHolzer Medical Center – JacksonComment on above:Performed By: #### BMP #### [facility] [address] [place] [address] Dr. Naren OlivasCovid-19 PCR (CVDTB)on 03-80-5250GORF-CoV-2 (COVID-19) RNA DEYSI+probe Ql (Unsp spec)DetectedCritically abnormalNOT DETECTEDThe [facility] CenterComment on above:Result Comment: This test is not yet approved or cleared by the [place] FDA. When there are no FDA-approved or cleared tests available, and other criteria are met, FDA can make tests available under an emergency access mechanism called an Emergency Use Authorization (EUA). The EUA for this test is supported by the [place] of Health and Human Service's (HHS's) declaration [...] be used). Performed By: #### CVDTBH #### [facility] [address] [place] [address] Dr. Naren Lind Screening.on 85-14-0405Hsydx depression screening assessmentNoSaint Cabrini Hospital [facility] 250 DO Work Phone: Fall risk assessmentc) Not medically indicatedSaint Cabrini Hospital [facility] 250 DO Work Phone: Tobacco use status CPHSb) NoMPNavos Health [facility] 250 DO Work Phone: CBC AUTO DIFFon 16-96-6016HKPW #0.0 103/ulNormal 0.0-0.1The [facility] CenterComment on above:Performed By: #### CBC #### [facility] [address] [place] [address] Dr. Naren Tejedaphils/100 WBC (Bld)0.4 %Normal0.2-2.0The [facility] Comment on above:Performed By: #### CBC #### [facility] [address] [place] [address] Dr. Naren Crawford #0.2 103/ulNormal0.0-0.7The [facility] CenterComment on above: Performed By: #### CBC #### [facility] [address] [place] [address] Dr. Naren Bakerosinophils/100 WBC (Bld)2.0 %Normal0.9-7.0The [facility] Comment on above:Performed By: #### CBC #### [facility] [address] [place] [address] Dr. Naren Bakerrythrocyte distribution width (RBC) [Ratio]14.2 %Kvkrdg24.0-15.0 The [facility] CenterComment on above:Performed By: #### CBC #### [facility] [address] [place], [place] [address] Dr. Naren OlivasHematocrit (Bld) [Volume fraction]36.2 %Wxzsmq69.0-48.0The [facility] CenterComment on above:Performed By: #### CBC #### [facility] [address] [place] [address] Dr. Naren OlivasHemoglobin (Bld) [Mass/Vol]11.6 g/dLCritically low12.0-16.0The [facility] CenterComment on above:Performed By: #### CBC #### [facility] [address] [place] [address] Dr. Naren Naqvi #0.03 10e3/ulNormal0.00-0.03The [facility] CenterComment on above:Performed By: #### CBC #### [facility] [address] [place] [address] Dr. Naren OlivasIG %0.4 %Normal0.0-0.5The [facility] CenterComment on above: Performed By: #### CBC #### [facility] [address] [place] [address] Dr. Naren SteinerH #2.3 103/ulNormal1.2-3.8The [facility] CenterComment on above:Performed By: #### CBC #### [facility] [address] [place] [address] Dr. Naren Manmphocytes/100 WBC (Bld)28.3 %Zmubqx79.5-60.0The [facility] CenterComment on above:Performed By: #### CBC #### [facility] [address] [place] [address] Dr. Naren BlancaUAL DIFF REQNONormalThe [facility] CenterComment on above: Performed By: #### CBC #### [facility] [address] [place] [address] Dr. Naren Muñoz (RBC) [Entitic mass]30.5 jkPzpnnf53.7-34.0The [facility] CenterComment on above:Performed By: #### CBC #### [facility] [address] [place] [address] Dr. Naren Muñoz (RBC) [Mass/Vol]32.0 g/uVFujwmn66.9-35.2The [facility] CenterComment on above:Performed By: #### CBC #### [facility] [address] [place] [address] Dr. Naren Muñoz (RBC) [Entitic vol]95.3 sGKgqcnq41.0-99.0The [facility] CenterComment on above:Performed By: #### CBC #### [facility] [address] [place] [address] Dr. Naren Maxwell #0.5 103/ulNormal0.3-0.8The [facility] CenterComment on above:Performed By: #### CBC #### [facility] [address] [place] [address] Dr. Naren Bolandocytes/100 WBC (Bld)5.8 %Normal1.7-12.0The [facility] Comment on above:Performed By: #### CBC #### [facility] [address] [place] [address] Dr. Naren Mitchell #5.1 103/ulNormal1.4-6.5The [facility] CenterComment on above:Performed By: #### CBC #### [facility] [address] [place] [address] Dr. Naren Gordonutrophils/100 WBC (Bld)63.1 %Gttpre63.0-75.0The [facility] CenterComment on above:Performed By: #### CBC #### [facility] [address] [address] [address] Naren Hesslet mean volume (Bld) [Entitic vol]9.8 fLNormal9.5-13.5The [facility] CenterComment on above:Performed By: #### CBC #### [facility] [address] [place] [address] Dr. Naren OlivasPLT278 103/jxXdsdyy456-738Nss [facility] CenterComment on above: Performed By: #### CBC #### [facility] [address] [place] [address] Dr. Naren OlivasRBC3.80 106/ulCritically low4.20-5.40The [facility] on above:Performed By: #### CBC #### [facility] [address] [place] [address] Dr. Naren OlivasWBC8.1 103/ulNormal4.0-11.0The [facility] CenterComment on above: Performed By: #### CBC #### [facility] [address] [place] [address] Dr. Naren Sarah 82-68-7510ARL2.367 uIU/mLNormal0.358-3.740The [facility] on above:Performed By: #### TSH #### [facility] [address] [place] [address] Dr. Naren OlivasPROF CHEM 8 (BAS METB)on 12-58-0716Xzpma gap [Moles/Vol]10.8 mmol/LNormalThe [facility] CenterComment on above:Performed By: #### BMP #### [facility] [address] [place] [address] Dr. Naren OlivasCalcium [Mass/Vol]8.1 mg/dLCritically low8.5-10.1The [facility] on above:Performed By: #### BMP #### [facility] [address] [place] [address] Dr. Naren OlivasChloride [Moles/Vol]105 mmol/DXhjdlj57-685Lol [facility] Comment on above:Performed By: #### BMP #### [facility] [address] [address] [address] Naren OlivasCO2 [Moles/Vol]28.1 mmol/LBjbzzc45.0-32.0The [facility] Comment on above:Performed By: #### BMP #### [facility] [address] [address] [address] Naren OlivasCreatinine [Mass/Vol]0.76 mg/dLNormal0.55-1.02Regional Medical CenterComment on above:Performed By: #### BMP #### [facility] [address] [address] [address] Naren BakerGFR-AF GEORGIAN>60Normal>=60The [facility] CenterComment on above:Performed By: #### BMP #### [facility] [address] [address] [address] Naren BakerGFR-NON AF GEORGIAN>60Normal>=60The [facility] CenterComment on above:Performed By: #### BMP #### [facility] [address] [address] [address] Naren OlivasGlucose [Mass/Vol]102 mg/fRJkarwj61-654LzjRegional Medical Center Comment on above:Performed By: #### BMP #### [facility] [address] [address] [address] Naren OlivasPotassium [Moles/Vol]3.9 mmol/LNormal3.5-5.1The [facility] Comment on above:Performed By: #### BMP #### [facility] [address] [address] [address] Naren OlivasSodium [Moles/Vol]140 mmol/ODkkqac739-927Yes [facility] Comment on above:Performed By: #### BMP #### [facility] [address] [address] [address] Naren OlivasUrea nitrogen [Mass/Vol]18.0 mg/dLNormal7.0-18.0The [facility] CenterComment on above:Performed By: #### BMP #### [facility] [address] [place], [place] [address] Dr. Naren OlivasUrea nitrogen/Creatinine [Mass ratio]23.7 mg/mgNoMcCullough-Hyde Memorial HospitalComment on above:Performed By: #### BMP #### [facility] [address] [place], [place] [address] Dr. Naren OlivasBasic Metabolic Panelon 70-82-5058Hewew gap [Moles/Vol]12 mmol/L Okarrm54-60UwsjglpzLake County Memorial Hospital - WestComment on above:Result Comment: Effective 12/07/2019 reference range changed.Performed By: #### BMP, [id number] #### [facility] Default [address] [place], [place] [address]D - B-TYPE NATRIURETIC (BNP)on 55-89-6921Twveyigibnz peptide B (Bld) [Mass/Vol]115 pg/mLHigh<100NoLake County Memorial Hospital - WestComment on above:Order Comment: [facility] performed at: [employer] [facility], [address] [place] [address], [address], Service Desk Specialist: Jose Kaplan MD [facility] Collection Date/Time: [facility] Results Received Date/Time: [facility] Reported Date/Time: [id number] Comment: BNP levels increase with age in the general population with the highest values seen in individuals greater than 75 years of age. Reference: J. Am. Ro. Cardiol. 2002; 40:976-982.Performed By: #### [id number] #### [facility] [address] [place], [place] [address]G - BASIC METABOLIC PANEL W/EGFRon 84-00-9880GMV/CREA22 NOT APPLICABLENormal6-NoLake County Memorial Hospital - WestComment on above:Order Comment: [facility] performed at: [employer] [facility], [address] [place] [address], [address] [place] [address], [address], Service Desk Specialist: Jose Kaplan MD [facility] Date/Time: [facility] Results Received Date/Time: [facility] Reported Date/Time: [id number] By: #### HANNAH, [id number] #### [facility] [address] [place] [address]Ndcbbls [Mass/Vol]9.1 mg/dLNormal8.6-10.4NoKindred Hospital Lima SpecialistComment on above:Order Comment: [facility] performed at: [employer], [employer] [facility], [address] [facility], [address] [place] [address], [address] [place] [address], Service Desk Specialist: Jose Kaplan MD [facility] Collection Date/Time: [facility] Results Received Date/Time: [facility] Reported Date/Time: [id number] By: #### HANNAH, [id number] #### [facility] [address] [place], [place] [address]Pykqridj [Moles/Vol]107 mmol/RAvdblt86-821Xgrkpiig [place] [facility] SpecialistComment on above:Order Comment: [facility] performed at: [employer], [employer] [facility], [address] [place] [address], [address] [place] [address], [address] [place] [address], Service Desk Specialist: Jsoe Kaplan MD [facility] Collection Date/Time: [facility] Results Received Date/Time: [facility] Reported Date/Time: [id number] By: #### HANNAH, 01283W #### [facility] [address] [place], [place] [address]EQ2 [Moles/Vol]26 mmol/BJomgiw92-56Cuxzkpzz [place] Medical SpecialistComment on above:Order Comment: [facility] performed at: [employer], [employer] [facility], [address] [place] [address], [address] [place] [address], [address] [place] [address], Service Desk Specialist: Jose Kaplan MD [facility] Date/Time: [facility] Results Received Date/Time: [facility] Reported Date/Time: [id number] By: #### BMP, 40919V #### [facility] [address] [place], [place] [address]Ereewuflyi [Mass/Vol]0.82 mg/dLNormal0.50-0.99[facility] [place] [facility] SpecialistComment on above:Order Comment: [facility] performed at: [employer], [employer] [facility], [address] [place] [address], [address] [place] [address], [address] [place] [address], Service Desk Specialist: Jose Kaplan MD [facility] Date/Time: [facility] Results Received Date/Time: [facility] Reported Date/Time: [id number] Comment: For patients >49 years of age, the reference limit for Creatinine is approximately 13% higher for people identified as -Moldovan.Performed By: #### HANNAH, 25102O #### [facility] Default [address] [place], [place] [address]kEYGFH ([facility])90 mL/min/1.21b8Vcrbbb> OR = 60[facility] [place] [facility] SpecialistComment on above:Order Comment: [facility] performed at: [employer], [employer] [facility], [address] [facility], [address] [place] [address], [address] [place] [address], Service Desk Specialist: Jose Kaplan MD [facility] Date/Time: [facility] Results Received Date/Time: [facility] Reported Date/Time: [id number] By: #### HANNAH, 35564D #### [facility] Default [address] [place], [place] [address]qGEXZMM ([facility])78 mL/min/1.34e5Spzkow> OR = 60[facility] [place] [facility] SpecialistComment on above:Order Comment: [facility] performed at: [employer], [employer] [facility], [address] [place] [address], [address] [place] [address], [address] [place] [address], Service Desk Specialist: Jose Kaplan MD [facility] Date/Time: [facility] Results Received Date/Time: [facility] Reported Date/Time: [id number] By: #### HANNAH, 42647M #### [facility] Default [address] [place] [address]Vmezjdp [Mass/Vol]98 mg/aGOrhzbm85-85Bmqstizy [facility] SpecialistComment on above:Order Comment: [facility] performed at: [facility], [employer] [facility], [address] [facility], [address] [place] [address], [address] [place] [address], Service Desk Specialist: Jose Kaplan MD [facility] Collection Date/Time: [facility] Results Received Date/Time: [facility] Reported Date/Time: [id number] Comment: Fasting reference intervalPerformed By: #### BMP, 66630D #### [facility] Default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 08:51-0400Body hdwbgu13.[address]03-21-2024 08:51-0400Diastolic blood ohtiwbdd52 mm[Hg][address]03-21-2024 08:51-0400Systolic blood mm[Hg][address]02-22-2024 10:09-0500Body ifylju935.5 cmIvan Mejia DO Work Phone: [facility]02-22-2024 10:09-0500 Body mass index (BMI) [Ratio]40.24 kg/q8FfdmejdIvan Mejia DO Work Phone: [facility]02-22-2024 10:09-0500 Body sxxjay74.79 kgWilaureanocarmel Roberto DO Work Phone: [facility]02-22-2024 10:09-0500 Diastolic blood mm[Hg]Ivan Mejia DO Work Phone: [facility]02-22-2024 10:09-0500 Heart rate72 /minIvan Mejia DO Work Phone: [facility]02-22-2024 10:09-0500 Systolic blood zonhcdwc13 mm[Hg]Ivan Mejia DO Work Phone: [facility]02-15-2024 16:15-0500 Diastolic blood ldbyzwnw23 mm[Hg]MD Robert Newell Work Phone: 1(419)626-[address] [place], [place] 1881602-15-2024 16:15-0500 Heart rate70 /minMD Robert Newell Work Phone: 1(831)2-[address] [place], [place] 1881602-15-2024 16:15-0500 Respiratory rate20 /minMD Robert Newell Work Phone: 1(742)596-[address] [place], [place] 1881602-15-2024 16:15-0500 SaO2% (BldA) [Mass fraction]95 %MD Robert Newell Work Phone: 1(111)723-[address] [place], [place] 1881602-15-2024 16:15-0500 Systolic blood rorkgmax05 mm[Hg]MD Robert Newell Work Phone: 1(142)[address]02-15-2024 12:51-0500 Body .48 cmAR Robert Newell Work Phone: 1(235)46223 [address]02-15-2024 12:51-0500 Body htcalmqvyly42.7 [degF]MD Robert Newell Work Phone: 1(002)0-[address] [place], [place] 1881602-15-2024 12:51-0500 Body wqohav95.8 kgMD Robert Newell Work Phone: 1(409)[address]09-06-2023 09:53-0400 Body .02 cmRobert Veronique Newell Work Phone: 1(876) [phone]-Kfslv [facility] DO Work Phone: 1(191) 827-889409-06-2023 09:53-0400Body mass index (BMI) [Ratio] 38.97 kg/v7DcrqfhRobert Newell Work Phone: 1(420) [phone]-Mwpwj [facility] DO Work Phone: 1(370) 198-474109-06-2023 09:53-0400Body surface area Derived from formula2.01 v9MimjgeRobert Newell Work Phone: 1(462) [phone]-Hgjcq [facility] DO Work Phone: 1(985) 650-106609-06-2023 09:53-0400Body .79 kgRobert Newell Work Phone: mp000-6938SE-Xzsme [facility] DO Work Phone: 1(353) 469-458109-06-2023 09:53-0400Diastolic blood bmimvoxp93 mm[Hg] Robert Newell Work Phone: mp385-5420QK-Qcigf [facility] DO Work Phone: 1(289) 619-239409-06-2023 09:53-0400Heart rate68 /minRobarnel Piper Osiris Work Phone: mp737-6633WR-Mytkx [facility] DO Work Phone: 1(423) 162-985109-06-2023 09:53-0400Systolic blood jbffiums85 mm[Hg] Robert Newell Work Phone: mp177-2515NR-Hosem [facility] DO Work Phone: 1(507) 620-868708-27-2023 02:13-0400Diastolic blood mm[Hg] MD Robert Newell Work Phone: [facility]08-27-2023 02:13-0400 Heart rate68 /minMD Robert Newell Work Phone: [facility]08-27-2023 02:13-0400 Respiratory rate20 /min Robert Newell Work Phone: [facility]08-27-2023 02:13-0400 SaO2% (BldA) [Mass fraction]98 %MD Robert Newell Work Phone: [facility]08-27-2023 02:13-0400 Systolic blood hhavjgwx392 mm[Hg]MD Robert Newell Work Phone: [facility]08-26-2023 22:53-0400 Body keuivs078.48 cmMD Robert Newell Work Phone: [facility]08-26-2023 22:53-0400 Body moxzbrslmsn15.7 [degF]MD Robert Newell Work Phone: [facility]08-26-2023 22:53-0400 Body fwkcte29.79 kgMD Robert Newell Work Phone: [facility]08-01-2023 14:30-0400 Body umqnvr179.48 cmMD Robert Newell Work Phone: 1(798)563-70[facility]08-01-2023 14:30-0400 Body peolkclnkeq53.7 [degF]MD Robert Newell Work Phone: [facility]08-01-2023 14:30-0400 Body mdznle431.6 kgAR Robert Newell Work Phone: [address] [place], [place] 0212008-01-2023 14:30-0400 Diastolic blood mm[Hg]MD Robert Newell Work Phone: 1(034)72923 [address]08-01-2023 14:30-0400 Heart rate73 /minAR Robert Newell Work Phone: 6(035)558-[address] [place], [place] 1881608-01-2023 14:30-0400 Respiratory rate18 /minAR Robert Newell Work Phone: 1(185)187-[address] [place], [place] 1881608-01-2023 14:30-0400 SaO2% (BldA) [Mass fraction]98 %MD Robert Newell Work Phone: [facility]08-01-2023 14:30-0400 Systolic blood dtrfykej004 mm[Hg]MD Robert Newell Work Phone: [facility]07-06-2022 10:42-0400 Body tzpbyf698.02 cmRobert Veronique Newell Work Phone: 1(153) [phone]-Riyxt [facility] DO Work Phone: 1(153) 794-683107-06-2022 10:42-0400Body mass index (BMI) [Ratio]39.5 kg/y6IybscjRobert Newell Work Phone: 1(133) [phone]-Ryabr [facility] DO Work Phone: 1(448) 416-896107-06-2022 10:42-0400Body surface area Derived from formula2.03 o4Pazkpo Veronique Newell Work Phone: mp226-0289XW-Oqvuu [place] [employer] [address] DO Work Phone: 1(928) 548-631907-06-2022 10:42-0400Body gwjlzi718.15 kgRobert Newell Work Phone: [id number]-Lyyvt [place] [employer] [address] DO Work Phone: 1(914) 658-228207-06-2022 10:42-0400Diastolic blood tcykmhjo19 mm[Hg] Robert Newell Work Phone: mp955-5092LA-Eiaeo [place] [employer] [address] DO Work Phone: 1(651) 102-943907-06-2022 10:42-0400Heart rate66 /minRobert Newell Work Phone: mp604-0065UK-Kgmfz [place] [employer] [address] DO Work Phone: 1(666) 523-991607-06-2022 10:42-0400Systolic blood jsdqufdz424 mm[Hg] Robert Newell Work Phone: [id number]-Wgrxr [place] [employer] [address] DO Work Phone: 1(116) 328-178306-27-2022 12:25-0400Body chgemj869.48 cmAmarybel Kwon Other [employer] Other 06-27-2022 12:25-0400Body mass index (BMI) [Ratio] 40.05 kg/z9ZksjlKeira Kwon Other [employer] Other 06-27-2022 12:25-0400Body notbgqcgovd71.7 [degF]Keira Kwon Other [employer] Other 06-27-2022 12:25-0400Body ehnvva52.34 kgKeira Kwon Other [employer] Other 06-27-2022 12:25-0400Diastolic blood nkgsrfol98 mm[Hg] Keira Kwon Other nort [employer] Other 06-27-2022 12:25-0400Respiratory rate18 /minLouisenathaniel Kwon Other [facility] [employer] Other 06-27-2022 12:25-9189AgX1% (BldA) [Mass fraction]97 % Keira Kwon [facility] [employer] Other 06-27-2022 12:25-0400Systolic blood yinumrnx771 mm[Hg] Keira Kwon [facility] [employer] Other 01-19-2022 11:27-0500Body jmrqum774.48 cmRobert L Vivebio Work Phone: [id number]-Fskwu [place] [employer] DO Work Phone: 1(140) 763-695701-19-2022 11:27-0500Body mass index (BMI) [Ratio] 38.96 kg/c0Axnhzt L Vivebio Work Phone: [id number]-Aedpq [place] [employer] 250 DO Work Phone: 1(969) 166-487601-19-2022 11:27-0500Body surface area Derived from formula1.96 i4Foxbbc L Vivebio Work Phone: [id number]-Cqvjs [place] [employer] 250 DO Work Phone: 1(320) 310-401701-19-2022 11:27-0500Body yxqpgu55.62 kgRobert L Vivebio Work Phone: [phone]-Hargm [place] [employer] 250 DO Work Phone: 1(815) 529-267401-19-2022 11:27-0500Diastolic blood dmcbsacq24 mm[Hg] Robert Piper [employer] Work Phone: [id number]-Urvod [place] [employer] 250 DO Work Phone: 1(420) 517-112801-19-2022 11:27-0500Heart rate78 /minRobert L Vivebio Work Phone: 1(204) 698-6615621-3117GN-Ughzj [facility] DO Work Phone: 1(969) 508-984001-19-2022 11:27-0500Systolic blood gdqelqaf506 mm[Hg] Robert Newell Work Phone: [id number]-Hmnzz [facility] DO Work Phone: 1(796) 755-261612-22-2021 10:45-158336 1Rrito Newell Work Phone: 1(306) 419-2762422-0783MW-Rmhos [facility] [place] Work Phone: Comment on above:[id number] 10:47-0500Body timvwq274.48 cmRrito Newell Work Phone: [facility] Work Phone: 1(433) 966-887511-10-2021 10:47-0500Body mass index (BMI) [Ratio] 38.96 kg/e7WfabxgRobert Newell Work Phone: [facility] Work Phone: 1(970) 686-459511-10-2021 10:47-0500Body surface area Derived from formula1.96 b8PbqvvhRobert Newell Work Phone: [facility] Work Phone: 1(849) 576-891411-10-2021 10:47-0500Body djncaa72.62 kgRobert Newell Work Phone: [phone] Work Phone: 1(607) 720-276611-10-2021 10:47-0500Diastolic blood xbolzxxt12 mm[Hg] Robert Newell Work Phone: [facility] Work Phone: 1([phone] 307-783911-10-2021 10:47-0500Heart rate82 /minRobert Newell Work Phone: [facility] Work Phone: [phone]) 140-264211-10-2021 10:47-0500Systolic blood mm[Hg] Robert Newell Work Phone: [facility] Work Phone: 1(188) [phone] 12:15-0400Body oueuju151.48 cmSkilo [employer] Other [facility] Other 10-28-2021 12:15-0400Body pvkkshujgdm98.8 [degF] Florina Calix Other [facility] Other 10-28-2021 12:15-0400Respiratory rate18 /minSkilo [employer] Other [place] Other 10-28-2021 12:15-7199NoG8% (BldA) [Mass fraction]97 % Florina Calix Other [facility] Other 10-20-2021 08:50-0400Body fgcluo063.48 cmReferring Provider [facility] DO Work Phone: 1([phone]) 373-996410-20-2021 08:50-0400Body mass index (BMI) [Ratio] 39.51 kg/m4Zkfbgkigh Provider [facility] DO Work Phone: [phone]) [phone] 08:50-0400Body surface area Derived from formula1.98 d0Vqnrcieer Provider [facility] DO Work Phone: 1(418) 368-122910-20-2021 08:50-0400Body feoply66.98 kgReferring Provider [facility] DO Work Phone: [phone] 08:50-0400Diastolic blood mm[Hg] Referring Provider [facility] DO Work Phone: [phone]) [phone] 08:50-0400Heart rate66 /minReferring Provider [facility] DO Work Phone: [phone]) 127-457010-20-2021 08:50-0400Systolic blood fjciqoyb576 mm[Hg] Referring Provider [facility] DO Work Phone: 1(864) 102-860910-15-2021 18:05-0400Body .48 cmPgarima Monroe Other [facility] Other 10-15-2021 18:05-0400Body mass index (BMI) [Ratio] 39.61 kg/b0Hhyumi Mabel Other [facility] Other 10-15-2021 18:05-0400Body ukdxagnwfvt33.5 [degF]Susan Monroe Other [facility] Other 10-15-2021 18:05-0400Body sxtmut10.25 kgManuelremigio Mabel Other [facility] Other 10-15-2021 18:05-0400Diastolic blood unhncckc28 mm[Hg] Susan Monroe Other [facility] Other 10-15-2021 18:05-0400Respiratory rate18 /minSusan Monroe Other [facility] Other 10-15-2021 18:05-0983NcB7% (BldA) [Mass fraction]98 % Susan Monroe Other [facility] Other 10-15-2021 18:05-0400Systolic blood iwycaebt915 mm[Hg] Susan Monroe Other [facility] Other Encounters Encounter DateEncounter TypeCare ProviderFacilityStart: 11-03-2025 End: 63-21-4082Dqfeyd outpatient visit 25 minutesMelanie Rodríguez Tracy CHANGE MANAGER-GARMENT FITTER Work Phone: uh [facility] HospitalComment on above:Ischemic cardiomyopathy (Primary Dx); Coronary artery disease, unspecified vessel or lesion type, unspecified whether angina present, unspecified whether hydab[place] or transplanted heart; Primary hypertension; Mixed hyperlipidemia; Nonrheumatic mitral valve regurgitation; BMI 37.0-37.9, adultStart: 10-04-2025 End: 68-45-8297xdnjjbijysMYGBT K [facility] AmbulatoryStart: 08-26-2025 End: 06-38-5739Oxcxvwhym encounterRobert Newell MD Work Phone: [facility] Internal MedicineStart: 08-25-2025 End: 77-09-7811knkmrpsoydKpcscwj J DittyFacility:[facility] Centertart: 46-64-8200Vii-patient / Non-visitLiu Campbell MD-[facility] Work Phone: Start: 08-16-2025 End: 57-89-2560Puiorg flowsheetRichard JACKSON Work Phone: [facility] OrthopaedicsStart: 08-16-2025 End: 05-36-9273Ykypqt flowsDaniel JACKSON Work Phone: [facility] OrthopaedicsStart: 08-16-2025 End: 46-04-8166Lsbdgiggd encounterMalindsay JACKSON Work Phone: [facility] OrthopaedicsStart: 08-16-2025 End: 15-06-5083qgiigmvdtrDKWKIQL J MEYERNot AvailableStart: 08-16-2025 End: 44-34-5092Ctrxwz outpatient visit 10 minutesMalindsay JACKSON Work Phone: [facility] OrthopaedicsComment on above:Acute pain of left shoulder (Primary Dx); S/P arthroscopy of left shoulderStart: 07-21-2025 End: 07-56-6577jcbjsnjqjtQDDSW CARROLLNot AvailableStart: 07-21-2025 End: 88-01-1630Zczgnw outpatient visit 25 minutesLesa Alcantara NP Work Phone: NOIR Era Internal MedicineComment on above: Essential hypertension (Primary Dx); Stage 3a chronic kidney disease ([facility]); Coronary artery disease involving hydab[place] coronary artery of hydab[place] heart without angina pectoris ; Chronic systolic congestive heart failure (HCC); Pure hypercholesterolemia ; Moderate major depression ([facility]); Acquired hypothyroidism ; Age-related osteoporosis without current pathological fracture ; Gastroesophageal reflux disease without esophagitis; Lumbar radiculopathy; Primary insomnia; Snoring; Colon cancer screening; Severe obesity (BMI 35.0-35.9 with comorbidity) ([facility]); BMI 37.0-37.9, adultStart: 07-12-2025 End: 94-95-2909Brdgst Joey JACKSON Work Phone: NODQ [facility] OrthopaedicsStart: 07-12-2025 End: 49-50-0782Btfwox Joey JACKSON Work Phone: noms [facility] OrthopaedicsStart: 07-12-2025 End: 63-72-9089Epactx follow up visit related to original Renee JACKSON Work Phone: noms Era OrthopaedicsComment on above:S/P arthroscopy of left shoulder (Primary Dx)Start: 07-12-2025 End: 52-43-1790eaytolbeqeCGOMQVZ J MEYERNot AvailableStart: 06-11-2025 End: 53-89-9047Dscita Joey JACKSON Work Phone: noms FB ORTHOPAEDICSStart: 06-11-2025 End: 06-91-4857Wqjvkr Joey JACKSON Work Phone: noms FB ORTHOPAEDICSStart: 06-11-2025 End: 72-62-7253Lhdpdg follow up visit related to original Renee JACKSON Work Phone: noms FB ORTHOPAEDICSComment on above:S/P arthroscopy of left shoulder (Primary Dx)Start: 06-11-2025 End: 03-86-8305aivkmwahxxSILKPGO J MEYERNot AvailableStart: 06-01-2025 End: 46-75-5564lmykosnvmyLZKAZ CARROLLNot AvailableStart: 06-01-2025 End: 82-82-6886Jwloaa outpatient visit 25 minutesSummer Carmel JACKSON Work Phone: noms SWS IMComment on above:Acute left-sided low back pain with bilateral sciatica (Primary Dx); Dysuria; Coronary artery disease involving hydab[place] coronary artery of hyd[place] heart without angina pectorisStart: 05-17-2025 End: 83-93-4260Frcldbbwk Romulo Courtney PTNOMS CI PTComment on above:PT PO Eval (Need to send referral back once Eval scheduled for Auth)Start: 05-14-2025 End: 84-66-0633Cgtywn Joey JACKSON Work Phone: noms FB ORTHOPAEDICSStart: 05-14-2025 End: 52-97-6847Jjiozk Joey JACKSON Work Phone: noms [facility] ORTHOPAEDICSStart: 05-14-2025 End: 16-04-7074Bivcgm follow up visit related to original Renee JACKSON Work Phone: noms FB ORTHOPAEDICSComment on above:S/P arthroscopy of left shoulder (Primary Dx)Start: 05-14-2025 End: 04-53-2268ptxzfosqozWTLUOJY J MEYERNot AvailableStart: 04-30-2025 End: 97-57-5253bvsvbovdjiSqscfi L HillFaciltrihealth bet[facility] HospitalStart: 04-29-2025 End: 86-46-8444BwheslYcfln T Olsen NP Work Phone: noms FB ORTHOPAEDICSComment on above:Internal derangement of left shoulder (Primary Dx); Post-operative painStart: 04-08-2025 End: 44-86-1875mslvlugvqkPBRQBH C STEPANICFacility:Leonarda HospitalStart: 04-02-2025 End: 80-26-3184fuezfqvflfHvezvy L HillFacility:[facility] HospitalStart: 24-42-0826Xuhtymqyc for other preprocedural examinationGEORGE C STEPANICMercy Health St. [facility] HospitalStart: 04-01-2025 End: 22-54-1971Rkcwtc flowsheetRichard JACKSON Work Phone: noms [facility] ORTHOStart: 04-01-2025 End: 19-31-1953Dbtwkb flowsheetRichard JACKSON Work Phone: noms SWS ORTHOStart: 04-01-2025 End: 04-73-6195Veqxzsy encounter procedureRichard JACKSON Work Phone: noms [facility] ORTHOComment on above:Pre-op examination (Primary Dx)Start: 04-01-2025 End: 72-81-5178Wdwzwohnhdbip examination doneRichard JACKSON Work Phone: [facility] Work Phone: Start: 04-01-2025 End: 74-75-6599abdtlnmeltREDXSXH J MEYERNot AvailableStart: 02-23-2025 End: 58-58-6075Jlccselqwp hospital visit by Ary Girard Echo/Vasc [facility] 2[facility] HospitalComment on above:Coronary artery disease, unspecified vessel or lesion type, unspecified whether angina present, unspecified whether hyd[place] or transplanted heart; History of PTCA; History of ST elevation myocardial infarction (STEMI); Ischemic cardiomyopathy; Primary hypertension; Nonrheumatic mitral valve regurgitationStart: 02-23-2025 End: 57-60-1454qhvgqwkxgjJPWHXRLMercy Health St. Vincent Medical Centertart: 02-12-2025 End: 81-83-3196wkptplghkjXzkjkc Hill MD Work Phone: [facility] Work Phone: Start: 02-12-2025 End: 90-80-7766Qkaawom encounter procedureRobert Newell MD Work Phone: [facility] Work Phone: Start: 02-10-2025 End: 31-12-0655Dvddwsg encounter procedureRobert Newell MD Work Phone: [facility] Work Phone: Start: 02-10-2025 End: 68-79-8878vsbyghesplIshfjh Hill MD Work Phone: [facility] Work Phone: Start: 02-10-2025 End: 92-40-3575Isoows flowsheetJr. Saul Hunt DO Work Phone: noms SWS ORTHOStart: 02-10-2025 End: 46-38-5176Kgfekl flowsheetJr. Saul Hunt DO Work Phone: noms SWS ORTHOStart: 02-10-2025 End: 13-35-0095lgvlhkanrbZO., SAUL HUNTNot AvailableStart: 02-09-2025 End: 15-76-2224mtiviosrunFM., SAUL Watts AvailableStart: 02-03-2025 End: 79-57-6509Naqwqtqfo to same day surgery Lizzette Newell MD Work Phone: [facility] Work Phone: Start: 02-03-2025 End: 59-49-3218ezwlwhpxxmArqokx Hill MD Work Phone: [facility] Work Phone: Start: 01-20-2025 End: 61-00-0060Ifndbz flowsheetJr. Saul Hunt DO Work Phone: noms SWS ORTHOStart: 01-20-2025 End: 08-06-1130Dzmmzx flowsheetJr. Saul Hunt DO Work Phone: noms SWS ORTHOStart: 01-20-2025 End: 83-33-3996arpbfwypgwHS., SAUL Burak Stefanie AvailableStart: 01-20-2025 End: 42-96-3613Aftavh outpatient visit 15 minutesJrSlade Hunt DO Work Phone: noms SWS ORTHOComment on above:Left shoulder pain, unspecified chronicity; Chronic left shoulder painStart: 01-19-2025 End: 36-67-8471dtrqwppcyxLctkbknykAkron Children's Hospital Work Phone: Start: 01-19-2025 End: 59-02-5506Gkjuljx encounter [facility] Physician [facility] Pain Mgmt Work Phone: Start: 01-18-2025 End: 53-07-7209mqifowljjhNXWVLE L HILLNot AvailableStart: 01-18-2025 End: 18-76-3842Fcfwro outpatient visit 25 minutesRobert Newell MD Work Phone: noms [facility] IMComment on above:Essential hypertension (CMS/HCC) (Primary Dx); Stage 3a chronic kidney disease (HCC) (CMS/HCC); Coronary artery disease involving hyd[place] coronary artery of hyd[place] heart without angina pectoris (CMS/HCC); Chronic systolic congestive heart failure (CMS/HCC); Pure hypercholesterolemia (CMS/HCC); Acquired hypothyroidism (CMS/HCC); Moderate major depression (CMS/HCC); Age-related osteoporosis without current pathological fracture (CMS/HCC); Severe obesity (BMI 35.0-39.9) with comorbidity (CMS/HCC); BMI 38.0-38.9,adult; Dysuria; Mild persistent asthmatic bronchitis without complication (CMS/HCC); Chronic left shoulder pain; Neck pain; Peripheral polyneuropathyStart: 01-06-2025 End: 46-20-7043abixjsvrlmLMKROQYSt. Joseph's Hospital AmbulatoryStart: 01-06-2025 End: 05-65-3672Bclhun outpatient visit [facility] minutes[facility] DO Work Phone: uh [facility] HospitalComment on above:Coronary artery disease, unspecified vessel or lesion type, unspecified whether angina present, unsp ecified whether hyd[place] or transplanted heart; History of PTCA; History of ST elevation myocardial infarction (STEMI); Ischemic cardiomyopathy; Primary hypertension; Mixed hyperlipidemia; Nonrheumatic mitral valve regurgitation; Atypical chest pain; Former smoker; BMI 39.0-39.9,adultStart: 12-29-2024 End: 25-72-2015Dmxqtq ogSandrosally Urbano HOOP PUNCH AND COILER OPERATOR Work Phone: aNA BELLEVUEStart: 12-29-2024 End: 57-31-8908Lbphfv Gadiel Clement HOOP PUNCH AND COILER OPERATOR Work Phone: aNA ESTRELLAUEStart: 12-29-2024 End: 50-79-7309gmoomrculpEMBEI CARROLLNot AvailableStart: 12-29-2024 End: 39-33-6300Dtesur outpatient visit 25 minutesXu Clement HOOP PUNCH AND COILER OPERATOR Work Phone: ana BELLEVUEComment on above:Gait instability (Primary Dx); Weakness; Multilevel degenerative disc disease; PolyneuropathyStart: 12-14-2024 End: 42-67-1447Vkbgjs Julianosally Urbano HOOP PUNCH AND COILER OPERATOR Work Phone: noms External Department UnsolicitedStart: 12-03-2024 End: 45-48-3032nwpfrcihxyANHYKS L HILLNot AvailableStart: 12-03-2024 End: 65-81-8210Nfzoej outpatient visit 25 minutesBrenda Begum HOOP PUNCH AND COILER OPERATOR Work Phone: noms SWS IMComment on above:Witnessed episode of apnea (Primary Dx); Essential hypertension (CMS/HCC); Mild persistent asthmatic bronchitis without complication (CMS/HCC); Class 2 severe obesity due to excess calories with serious comorbidity and body mass index (BMI) of39.0 to 39.9 in adult (CMS/HCC); Upper respiratory tract infection, unspecified type; Mild intermittent asthma with acute exacerbation (CMS/HCC); Coronary artery disease involving hyd[place] coronary artery of hyd[place] heart without angina pectoris (CMS/HCC)Start: 11-12-2024 End: 55-95-4172tuypqqtxseSMGTA CARROLLNot AvailableStart: 11-12-2024 End: 74-19-3505Bptbza Gadiel Clement HOOP PUNCH AND COILER OPERATOR Work Phone: noms [facility]Start: 11-12-2024 End: 81-38-8737Iumndw Gadiel Clement HOOP PUNCH AND COILER OPERATOR Work Phone: NOPV [address]TEStart: 10-21-2024 End: 45-15-8587Jsoqxd outpatient visit 15 minutesJeastonica L Didion HOOP PUNCH AND COILER OPERATOR Work Phone: noms SWS IMComment on above:Dysuria (Primary Dx); Acute cystitis with hematuria; Acquired hypothyroidism (CMS/HCC); Moderate major depression (CMS/HCC); Coronary artery disease involving hyd[place] coronary artery of hyd[place] heart without angina pectoris (CMS/HCC)Start: 10-21-2024 End: 04-19-7686zjodacatfhSFTLGNA L DIDIONNot AvailableStart: 10-20-2024 End: 98-21-3786Oqcpibn encounter procedureRobert Newell MD Work Phone: [facility] [address] [facility] Work Phone: Start: 10-20-2024 End: 57-66-6004todltczqjlZxkzpo Hill MD Work Phone: [facility] Work Phone: Start: 10-12-2024 End: 77-22-1967Ylwwfk Gadiel Clement HOOP PUNCH AND COILER OPERATOR Work Phone: noms [address]TEStart: 10-12-2024 End: 58-16-8234Rfoirz Gadiel Clement HOOP PUNCH AND COILER OPERATOR Work Phone: noms [facility]TEStart: 10-12-2024 End: 46-31-9582Uxbfph outpatient visit 25 minutesXu Mendozaoll HOOP PUNCH AND COILER OPERATOR Work Phone: noms [facility] R[facility]TEComment on above:Gait instability (Primary Dx); Polyneuropathy; Multilevel degenerative disc diseaseStart: 10-12-2024 End: 41-67-9500klnkqbyzndSXBHF CARROLLNot AvailableStart: 09-15-2024 End: 05-06-4678Rawsjc outpatient new 45 minutesChristopher Cy DO Work Phone: noMS [facility] ROUTEComment on above:Degeneration of intervertebral disc of lumbar region with discogenic back pain and lower extremity pain (Primary Dx); Polyneuropathy; Long-term use of high-risk medicationStart: 09-15-2024 End: 06-40-2677yafchjbdvsXNEUPGXIBYX HASSETTNot AvailableStart: 09-15-2024 End: 35-85-0562Qavivk flowsheetChristopher Cy DO Work Phone: noms [facility]TEStart: 09-15-2024 End: 66-97-1467Tjafcv flowsheetChristopher Cy DO Work Phone: noms [address]TEStart: 09-08-2024 End: 82-81-2904Ckgdvn flowsheetNatalie A Felter CHANGE MANAGER-GARMENT FITTER Work Phone: N[facility] SWS DERMStart: 09-08-2024 End: 53-30-2001Zzqpkh flowsheetNatalie A Felter CHANGE MANAGER-GARMENT FITTER Work Phone: N[facility] SWS DERMStart: 09-08-2024 End: 82-58-3657dgsmtmragiGYWLEEX A FELTERNot AvailableStart: 09-08-2024 End: 51-40-4615Zlrdnh outpatient new 20 minutesNatalie A Felter CHANGE MANAGER-GARMENT FITTER Work Phone: NOMS SWS DERMComment on above:Inflamed seborrheic keratosis; Skin tagStart: 09-07-2024 End: 81-55-4504Hnaijh Stephie Baeza PT Work Phone: N[facility] CI PTStart: 09-07-2024 End: 00-27-9726Hssdeg Stephie Baeza PT Work Phone: [facility] CI PTStart: 09-07-2024 End: 82-81-8433junisotckqVgerud T Blackston PT Work Phone: noms CI PTComment on above:Pain in both lower extremities (Primary Dx); ParesthesiaStart: 09-04-2024 End: 34-67-3913Khnxgh flowsheetJosh Durany PTANOMS CI PTStart: 09-04-2024 End: 71-95-8361Uuahpi flowsheetDanielaissa Reneey PTANOMS CI PTStart: 09-04-2024 End: 07-67-0787vtnjwvqbifXzgncie Neilbley PTANOMS CI PTComment on above:Pain in both lower extremities (Primary Dx); ParesthesiaStart: 09-01-2024 End: 79-17-5714Glkscy flowsheetDanielaissa Reneey PTANOMS CI PTStart: 09-01-2024 End: 32-79-5817Ycesbh flowsheetDanielaissa Reneey PTANOMS CI PTStart: 09-01-2024 End: 78-04-4332wnzloyewyvKsvavlh Reneey PTANOMS CI PTComment on above:Pain in both lower extremities (Primary Dx); ParesthesiaStart: 08-27-2024 End: 97-06-8160Nitofibsi encounterBal Baeza PT Work Phone: noms CI PTComment on above:PT Initial Eval (Contacted [...] (She called back and I confirmed w/ Bal that we can cont off previous re ferral. I scheduled her 09/01 @ 1:30 w/ Josh Vela WILDLIFE BIOLOGIST.)Start: 08-18-2024 End: 49-96-8721Rwdvon outpatient visit 25 minutesLesa Alcantara HOOP PUNCH AND COILER OPERATOR Work Phone: NOMS SWS IMComment on above:Chest pain, unspecified type (Primary Dx); Syncope, unspecified syncope type; Bradycardia; Acute non-recurrent frontal sinusitis; PolyneuropathyStart: 08-18-2024 End: 23-36-5212gjvjngeoiiMULA R RISALITINot AvailableStart: 08-15-2024 End: 60-56-6660yzlgxnezadGY Robert Newell Work Phone: [facility] Work Phone: Start: 08-15-2024 End: 04-78-3261Mfcaqtt encounter procedureMD Robert Newell Work Phone: [facility]-Electrodiagnostics Work Phone: Start: 08-12-2024 End: 68-26-9083Wnbvrswre department patient visitMD Robert Newell Work Phone: [facility]-Emergency Room Work Phone: Start: 90-88-5041Bmy-patient / Non-visitMD Robert Newell Work Phone: [facility]-Heart Rhythm ClinicStart: 08-10-2024 End: 20-54-3578Mhjcjcgvpe and management of inpatientMD Robert Newell Work Phone: [facility] [place] [facility] Work Phone: Start: 08-10-2024 End: 51-15-7218prjhgqimpgu encounterMD Robert Newell Work Phone: [facility] Work Phone: Start: 08-05-2024 End: 95-06-9201Bfeazy Vivienne JACKSON Work Phone: noms External Department UnsolicitedStart: 08-05-2024 End: 12-30-1898Gcmkufdys encounterMelgal Vela PTANOMS CI PTComment on above: PT [...] Sat & ; she requested to schedule pzij-jf-tang.)Start: 08-05-2024 End: 84-18-1588Wbfjnqu encounter procedureGinjudith Alcantara HOOP PUNCH AND COILER OPERATOR Work Phone: [facility] Work Phone: Start: 08-05-2024 End: 48-66-6868Sekppjrv preventive med est patient 40-64yrsGcaitlin Alcantara HOOP PUNCH AND COILER OPERATOR Work Phone: noms SWS IMComment on above:Annual physical exam (Primary Dx); Essential hypertension (CMS/HCC); Stage 3a chronic kidney disease (HCC) (CMS/HCC); Chronic systolic congestive heart failure (CMS/HCC); Coronary artery disease involving hyd[place] coronary artery of hyd[place] heart without angina pectoris (CMS/HCC); Moderate major depression (CMS/HCC); Pure hypercholesterolemia (CMS/HCC); Changing skin lesion; Colon cancer screening; Weakness of both lower extremitiesStart: 07-30-2024 End: 62-57-2421ocrdlhenflQghsbi T Blackston PT Work Phone: N[facility] CI PTComment on above:Pain in both lower extremities (Primary Dx); ParesthesiaStart: 07-30-2024 End: 42-52-0150Rhbizp Stephie Baeza PT Work Phone: [facility] CI PTStart: 07-30-2024 End: 26-34-2542Vgifve Stephie Baeza PT Work Phone: [facility] CI PTStart: 07-23-2024 End: 80-71-2277Eqwgzz flowsheetChristopher Cy DO Work Phone: NOMS [facility] [facility]Start: 07-23-2024 End: 93-68-1490Gcuzcj flowsheetChristopher Cy DO Work Phone: n[facility]TEStart: 07-23-2024 End: 39-71-3599Zdtopvd encounter procedureCherik Benoit DO Work Phone: noms [facility] R[facility]TEComment on above:Pain in both lower extremities; ParesthesiaStart: 02-20-2024 End: 38-14-3112Qcghntljr Result EncounterGeneric External Data ProviderNOCT External Department UnsolicitedStart: 02-20-2024 End: 78-30-6150Ogtboepdr Result EncounterGeneric External Data ProviderNOCT External Department UnsolicitedStart: 02-20-2024 End: 76-08-3383Xgejglkuqc hospital visit by Ary Girard [place]/Vas [facility] 2[facility] HospitalComment on above:Coronary artery disease, unspecified vessel or lesion type, unspecified whether angina present, unspecified whether hyd[place] or transplanted heart; History of PTCA; Ischemic cardiomyopathy; Hypertension, unspecified type; Other fatigue; Difficulty breathingStart: 01-23-2024 End: 10-00-6388Xlqivp outpatient visit 25 minutesWilaureanocarmel Lynn Roberto DO Work Phone: [facility] CenterComment on above:Coronary artery disease, unspecified vessel or lesion type, unspecified whether angina present, unsp ecified whether hyd[place] or transplanted heart; History of PTCA; History of ST elevation myocardial infarction (STEMI); Ischemic cardiomyopathy; Hypertension, unspecified type; Mixed hyperlipidemia; Other fatigue; Former smoker; Difficulty breathingStart: 01-16-2024 End: 66-08-6561Aqausujmz department patient visitMD Robert Newell Work Phone: [facility] Work Phone: Start: 11-52-4922bchlikgcnjOs. Robert Prather Decker Facility:[id number]: 33-73-5224Smktwa outpatient visit 15 minutes Veronique Newell Work Phone: [phone]-Vgiyz [facility] DO Work Phone: Start: 07-27-2023 End: 87-52-6969Bodmpnwvb department patient visitMD Robert Newell Work Phone: [facility] Work Phone: Start: 07-02-2023 End: 56-87-8895Ixanyyjfk department patient visitMD Robert Newell Work Phone: [facility] Work Phone: Start: 01-15-2023 End: 25-24-2630hfyqyrmurqYE IVAN MEJIAFacility:D7Idomw: 12-20-20[address] Ivan MejiaFacility:[id number]: 12-05-2022 End: 13-00-1922hkfaflwkczKI ROBERT NEWELLFacility:S7Uogev: 86-25-8274Ae [employer] Robert Newell Work Phone: [phone]-Bygei [facility] DO Work Phone: Start: 66-62-9802Pq RenewalRobert Newell Work Phone: [phone]-Ayxxo [facility] DO Work Phone: Start: 07-07-2022 End: 18-44-1282whlihcvdufNV JACK HAYFacility:X9Dpljz: 06-13-2022 End: 84-99-7196gshsxvkxokIrabcef Ditty Other Lindsay [employer] Other Start: 11-14-7490Onaxteoyg encounterCamiwlda CampbellFPG Referral CoordinatorStart: 67-29-1385Keuuyg outpatient visit 25 minutesRobarnel Newell Work Phone: [phone]-Ohtvb [facility] [address] DO Work Phone: Start: 39-53-8661Mjgxspg encounter procedureRobert Newell Work Phone: [phone]-Bxdmr [facility] DO Work Phone: Start: 06-05-2022 End: 53-92-3742uzidsreecdPQ ROBERT HILLFacility:D9Ohchz: 05-28-2022 End: 68-93-0012ibsrvhohrgChxfs Keller Other [facility] [employer] Other Start: 30-19-4638Zvchcw outpatient visit 15 minutes Keira KwonFPG Urgent Care ClydeStart: 03-24-2022 End: 96-17-2409qkimuzvftrWU DOCTOR MISCFacility:I0Aqptk: 46-79-6993Pm Renewal Robert Newell Work Phone: [phone]-Yqsdv [facility] DO Work Phone: Start: 02-02-2022 End: 23-37-0121byccljhrlqDD ROBERT NEWELLFacility:Q6Qkhlh: 62-65-0533Riybra outpatient visit 15 minutesRobarnel Piper [employer] Work Phone: [phone]-Kbkgv [facility] DO Work Phone: Start: 64-56-7777Lwpjwim encounter procedureRobarnel Newell Work Phone: [phone]-Adcpo [facility] [place] Work Phone: Start: 10-14-4878Lu RenewalRobarnel Newell Work Phone: [phone]-Ordgz [facility] DO Work Phone: Start: 57-62-1945Yo RenewalRobert Newell Work Phone: [phone]-Gbgzu [facility] DO Work Phone: Start: 01-54-2841Fdyals outpatient visit 25 minutes Robert Piper [employer] Work Phone: [facility] Work Phone: Start: 26-23-5647Crlbcs outpatient visit 15 minutes Florina CalixFPG Urgent Care ClydeStart: 96-23-5066Qwnafl outpatient visit 25 minutesReferring Provider [facility]-[place] [address] DO Work Phone: Start: 44-12-5261Npghton encounter procedureReferring Provider Unknown-[facility]-[place] 250 DO Work Phone: Start: 99-45-8919Cvtxxy outpatient visit 15 minutes Susan AnthonyG Urgent Care ClydeStart: 08-21-2021 End: 15-41-9256hrecydxwreGgoevvj Scally Other Nort [employer] Other Start: 56-94-1514Zrxiqvucb encounterBucktail Medical Center Care ClinicStart: 06-07-2017 End: 49-02-4301UjnaehpookHHYKNXHWMemorial Hospital Procedures DateProcedureProcedure DetailPerforming ClinicianStart: 18-85-6151Fcnuozlglph Robert Newell MD Work Phone: Start: 97-89-1213Xqpnj 1996 panel - Serum or Plasma Melanie Tracy CHANGE MANAGER-GARMENT FITTER Work Phone: Start: 17-72-1379Mcoduhdvcbp [Units/volume] in Serum or PlasmaMelanie Tracy CHANGE MANAGER-GARMENT FITTER Work Phone: Start: 50-90-0416Ndml [facility] r-t 2d w/wom-mode compl spec&colr Nathalie Mejia DO Work Phone: Start: 95-71-5522N-ray of cervical spineRobert Newell MD Work Phone: Start: 69-97-5705Memrxpmb injection of lumbar spine using fluoroscopic guidanceRobert Newell MD Work Phone: Start: 23-02-6713Fwpbx shoulder complete minimum 2 viewsJr. Saul Hunt DO Work Phone: Start: 21-84-9145Qbpdm of free thyroxineRobert Newell MD Work Phone: Start: 39-20-6012HCSHEDZ TRACT INFECTION (HTRX)Robert Newell MD Work Phone: Start: 80-90-1480Qpykpkzbnfp [Units/volume] in Serum or PlasmaEly 2Start: 33-89-9252Ynbvbjjvorh antibodies anaXu Clement HOOP PUNCH AND COILER OPERATOR Work Phone: Start: 93-96-5875Ynretgio kinase totalSaarminda Clement HOOP PUNCH AND COILER OPERATOR Work Phone: Start: 98-45-1334OZQR DISEASE SEROLOGY W/REFLEXSaarminda Clement HOOP PUNCH AND COILER OPERATOR Work Phone: Start: 42-62-8590VFMABVY ELECTRO.,SSarasally Clement HOOP PUNCH AND COILER OPERATOR Work Phone: Start: 43-22-2226Vizsf dip stick/tablet rgnt non-auto w/o micrscpJessica L Didion HOOP PUNCH AND COILER OPERATOR Work Phone: Start: 26-55-9183UD lumbar spine wo Alejandro Newell MD Work Phone: Start: 07-44-9277LI pre/post mri xrayRobert Newell MD Work Phone: Start: 38-71-9564XHXKAJDNKRE SKIN LESIONNatalie A Felter CHANGE MANAGER-GARMENT FITTER Work Phone: Start: 60-99-0303Wmruw chest X-rayMD Robert Newell Work Phone: Start: 02-56-7736QHZJ-CoV-2, Influenza & RSV (PCR)MD Robert Newell Work Phone: Start: 65-53-7887Csmog nucleic acid assayRobert Newell MD Work Phone: Start: 55-27-7041Fmslo chest X-rayMD Robert Newell Work Phone: Start: 08-21-2052Mozngsax blood count with white cell differential, automatedSummnathaniel JACKSON Work Phone: Start: 42-08-9641Gvfudptnfmskg metabolic Wilfredo JACKSON Work Phone: Start: 76-37-7530Cvkip Wilfredo JACKSON Work Phone: Start: 52-91-1616Qgpuf dip stick/tablet reagent auto microscopySusilvina JACKSON Work Phone: Start: 07-23-2024 End: 13-20-5054Fqzund emg ea extremty w/paraspinl area completeChristopher Cy DO Work Phone: Start: 95-46-8258UgoxogptlpiMyhx Risaliti HOOP PUNCH AND COILER OPERATOR Work Phone: Start: 80-36-6928Nalasvzqymh [Units/volume] in Serum or PlasmaWilliam Roberto DO Work Phone: Start: 02-20-2024 End: 22-61-3358Binw tthrc r-t 2d w/wom-mode compl spec&colr dWilliam S Roberto DO Work Phone: Start: 40-85-1932HAIK-CoV-2, Influenza & RSV (PCR)MD Robert Newell Work Phone: Start: 74-46-1784Ayfwx chest X-rayMD Robert Newell Work Phone: Start: 62-33-6230Iscxnpcfuth [Units/volume] in Serum or PlasmaWilliam Roberto DO Work Phone: Start: 06-39-1128Zbwvdgn of percutaneous transluminal coronary angioplastyHistory of PTCAWilliam Roberto DO Work Phone: Start: 08-64-9311EA of head without contrastMD Robert Newell Work Phone: Start: 97-01-6692WoazzcwtvxiTzkpgin Roberto DO Work Phone: Start: 06-19-2023H/O: hysterectomyStatus post hysterectomyGina Risaliti HOOP PUNCH AND COILER OPERATOR Work Phone: Start: 11-29-2021 End: 12-26-2023H/O: hysterectomyHistory of hysterectomyGina Risaliti HOOP PUNCH AND COILER OPERATOR Work Phone: Start: 20-19-1150HeqzphyilgqnttabWbvldf Veronique Newell Work Phone: Start: 59-25-1829Jhlnk 1996 panel - Serum or Plasma Ivan Mejia DO Work Phone: AppendectomyReferring Provider UnknownCataract surgery Referring Provider UnknownCesarean sectionReferring Provider Unknown CholecystectomyReferring Provider UnknownElbow joint operationsReferring Provider UnknownHistory of percutaneous transluminal coronary angioplastyHistory of PTCARobert Veronique Newell Work Phone: History of percutaneous transluminal coronary angioplastyHistory of PTCMason Mejia DO Work Phone: History of percutaneous transluminal coronary angioplastyHistory of PTCAEly 2History of percutaneous transluminal coronary angioplastyHistory of PTCAWilliam Shane Mejia DO Work Phone: History of percutaneous transluminal coronary angioplastyHistory of PTCAEly 2History of placement of stent for coronary artery diseaseS/P drug eluting coronary stent placementReferring Provider Unknown HysterectomyReferring Provider UnknownOperative procedure on handReferring Provider UnknownOperative procedure on kneeReferring Provider UnknownProcedure on neckReferring Provider UnknownTotal colonoscopyReferring Provider Unknown Plan of Treatment DateCare ActivityDetailAuthorStart: 74-29-4410Ugsacbvok for malignant neoplasm of colonNOMS HealthcareStart: 17-69-0455Dkzgc panelLipid PanelUnKettering Health Troy: 77-32-8023Xtkblfe stimulating hormone measurement TSH LevelUnKettering Health Troy: 55-62-5077Ggdcz panelLipid PanelUnKettering Health Troy: 04-05-2026 End: 39-66-6211Xxolnyj encounter spbpuepcz70/05/2026 10:50 AM EDT Office Visit [place] [address] [facility] [address] [place] [address] Ivan Mejia DO [address] [facility], [address] [place] [address] [facility] CenterStart: 36-88-1032Prcuknkkweizgcfi EchocardiogramUnKettering Health Troy: 01-26-2026 End: 15-59-7985Fvoqkzb encounter xhgtydycz40/25/2026 1:00 PM EST Office Visit [facility] [address] [place] [address] [facility] [place] [facility] MedicineStart: 38-85-2512Lsbquqe stimulating hormone measurementTSPost [facility] – TulsaStart: 01-17-2026 End: 912155-pbuimkxumfoimo D3 [Mass/volume] in Serum or PlasmaVitamin D 25 hydroxy Total Lab Routine Stage 3a chronic kidney disease ([facility]-HCC) Expected: 01/17/2026 (Approximate), Expires: 07/16/2026NOMS HealthcareComment on above: Expected: 01/17/2026 (Approximate), Expires: 07/16/2026Start: 01-17-2026 End: 51-51-4735Detchewlalgoy metabolic 2000 panel - Serum or PlasmaComprehensive metabolic panel Lab Routine Essential hypertension Stage 3a chronic kidney disease ([facility]-HCC) Expected: 01/17/2026 (Approximate), Expires: 07/16/2026[facility] Work Phone: Comment on above:Expected: 01/17/2026 (Approximate), Expires: 07/16/2026Start: 01-17-2026 End: 49-41-1277Cxwdskjfdg.intact [Mass/volume] in Serum or PlasmaPTH, intact Lab Routine Stage 3a chronic kidney disease ([facility]-HCC) Expected: 01/17/2026 (Approximate), Expires: 07/16/2026NOMS HealthcareComment on above:Expected: 01/17/2026 (Approximate), Expires: 07/16/2026Start: 01-17-2026 End: 61-66-3228Vhizlnihj [Moles/volume] in Serum or PlasmaPhosphorus Lab Routine Stage 3a chronic kidney disease ([facility]-HCC) Expected: 01/17/2026 (Approximate), Expires: 07/16/2026NOCT HealthcareComment on above:Expected: 01/17/2026 (Approximate), Expires: 07/16/2026Start: 01-17-2026 End: 22-15-4242Snrxzjfqdlg [Units/volume] in Serum or PlasmaTSH Lab Routine Acquired hypothyroidism Expected: 01/17/2026 (Approximate), Expires: 07/16/2026 NOMS HealthcareComment on above:Expected: 01/17/2026 (Approximate), Expires: 07/16/2026Start: 10-14-2025 End: 17-07-3620Rcavcol encounter kipltvhsa47/13/2025 10:30 AM EST Office Visit [facility] [address] [place] [address] Richard Camarena, [place] [address] [place] [address] [facility] OrthopaedicsStart: 09-13-2025 End: 94-32-9230Goxnyyv encounter excvxbcda08/13/2025 1:00 PM EDT Office Visit [facility] [address] [facility] [address] [place] [address] Melanie Tracy, CHANGE MANAGER-GARMENT FITTER [address] [facility] [address] [place] [address] [facility] CenterStart: 66-28-9215GenyrxtnoSouthwest General Health Centertart: 08-16-2025 End: 53-88-3989Dcnkwsu encounter wvoipynmf55/15/2025 10:30 AM EDT Office Visit [facility] [address] [place] [address] Richard Camarena, [place] [address] [place] [address] [facility] OrthopaedicsStart: 85-82-8184Wcgvsp Adult PhysicalYearly Adult PhysicalUnKettering Health Troy: 07-32-0963EIVPH-19 Vaccine ( season)COVID-19 Vaccine ( season)[facility]: 50-19-5867FVDYE-19 Vaccine ( season)COVID-19 Vaccine ( season)[facility] Start: 81-77-0327Hpaedjybi vaccinationNOCT HealthcareStart: 76-09-4414Whdbjvpsv for malignant neoplasm of breastMammogramNOMS HealthcareStart: 07-21-2025 End: 00-38-4617Fvvtiic encounter procedureNOMS SWS IMStart: 07-18-2025 End: 05-99-1630AOM W Auto Differential panel - BloodCBC and differential Lab Routine Stage 3a chronic kidney disease (HCC) (CMS/HCC) Expected: 07/18/2025, Expires: 01/18/2026[facility] Healthcare Work Phone: Comment on above:Expected: 07/18/2025, Expires: 01/18/2026Start: 07-18-2025 End: 04-90-8434Dzsgqlnffocvj metabolic 2000 panel - Serum or PlasmaComprehensive metabolic panel Lab Routine Essential hypertension (CMS/HCC) Expected: 07/18/2025, Expires: 01/18/2026[facility] HealthcareComment on above:Expected: 07/18/2025, Expires: 01/18/2026Start: 07-18-2025 End: 78-07-7242Qunfy 1996 panel - Serum or PlasmaLipid panel Lab Routine Pure hypercholesterolemia (CMS/HCC) Expected: 07/18/2025, Expires: 01/18/2026[facility] HealthcareComment on above:Expected: 07/18/2025, Expires: 01/18/2026Start: 07-18-2025 End: 92-62-7763Xtsqdodunvu [Units/volume] in Serum or PlasmaTSH Lab Routine Acquired hypothyroidism (CMS/HCC) Expected: 07/18/2025, Expires: 01/18/2026[facility] HealthcareComment on above:Expected: 07/18/2025, Expires: 01/18/2026Start: 07-18-2025 End: 14-71-1220Lpqchlvwz (T4) free [Mass/volume] in Serum or PlasmaT4, free Lab Routine Acquired hypothyroidism (CMS/HCC) Expected: 07/18/2025, Expires: 01/18/2026NOMS HealthcareComment on above:Expected: 07/18/2025, Expires: 01/18/2026Start: 07-16-2025 End: 07-53-8836Dstbtch encounter nduttabmn45/15/2025 10:30 AM EDT Office Visit [facility] [address] [facility] [place] [address] Richard Camarena, PA [address] [place] [address] [facility] FB ORTHOPAEDICSStart: 07-12-2025 End: 42-43-4683Ijmfwbr encounter rnlephgte48/11/2025 10:45 AM EDT Office Visit [facility] [address] [place] [address] Richard Camarena PA [address] [place] [address] S/P arthroscopy of left shoulder (Primary Dx)NOMShane Girard OrthopaedicsComment on above:S/P arthroscopy of left shoulder (Primary Dx)Start: 72-87-2401Rpuiglfbl vaccinationInfluenza Vaccine (#1) [facility]: 64-57-5046Khyngus stimulating hormone measurementSelect Medical [facility]: 06-11-2025 End: 71-57-8592Icuytmy encounter procedureNOMS FB ORTHOPAEDICSComment on above: S/P arthroscopy of left shoulder (Primary Dx)Start: 05-14-2025 End: 32-22-2724Hlftwod encounter procedureNOMS FB ORTHOPAEDICSComment on above: S/P arthroscopy of left shoulder (Primary Dx)Start: 04-01-2025 End: 27-75-9632Tvqfkjf encounter hqbaudmmv98/01/2025 10:30 AM EDT Office Visit [facility] [address] [place] [phone] Richard Camarena, [place] [address] [facility] [address] [place] [address] Pre-op examination (Primary Dx)NOMS ABIGAIL ORTHOComment on above:Pre-op examination (Primary Dx)Start: 77-48-8143Lyxmdhmujiimvurn EchocardiogramGlenbeigh HospitalStart: 02-10-2025 End: 44-64-7585Ctihekz encounter procedureNOSANTA ANA HOSPITAL MED[facility] ORTHOComment on above:Left shoulder pain, unspecified chronicity (Primary Dx); Chronic left shoulder painStart: 19-21-6307MwsrlcvrzBucyrus Community Hospital Start: 02-02-2025 End: 35-31-4579Mpjpywg encounter lwxrmeohu02/04/2025 3:40 PM EST Office Visit [facility] [address] [place] [address] Xu Clement NP [address] [place] [address] PAPI ESTRELLAUEStart: 01-20-2025 End: 96-73-3172XI Shoulder - left WO contrastMR shoulder left wo IV contrast Imaging Routine Chronic left shoulder pain Expected: 01/20/2025 (Approximate), Expires: 01/20/2026[facility] Work Phone: Comment on above:Expected: 01/20/2025 (Approximate), Expires: 01/20/2026Start: 01-18-2025 End: 49-53-1507Pzypsxq encounter umhujvurn38/17/2025 1:00 PM EST Office Visit [facility] [address] [place] [address] Robert Newell MD [address] [place] [address] NOMShane HAYES IMStart: 01-06-2025 End: 58-84-0104RA Heart TransthoracicTransthoracic Echo Complete Echocardiography Routine Coronary artery disease, unspecified vessel orlesion type, unspecified whether angina present, unspecified whether hydaburg or transplanted heart History of PTCA History of ST elevation myocardial infarction (STEMI) Ischemic cardiomyopathy Primaryhypertension Nonrheumatic mitral valve regurgitation Expected: 01/06/2025 (Approximate), Expires: 01/06/2027[facility] Service [facility] Work Phone: Comment on above:Expected: 01/06/2025 (Approximate), Expires: 01/06/2027Start: 12-29-2024 End: 00-37-1877Ohaxfqi encounter procedureNOMS [facility] R[facility]TEStart: 12-29-2024 End: 05-97-0709Oybbaalkg 1996 panel - SerumHepatitis panel, acute Lab Routine Polyneuropathy Expected: 12/29/2024 (Approximate), Expires: 12/29/2025NOCT HealthcareComment on above:Expected: 12/29/2024 (Approximate), Expires: 12/29/2025Start: 12-29-2024 End: 67-56-9856ASF-1/HIV-2 antigen/antibody combination immunoassayHIV-1 and HIV-2 antibodies Lab Routine Polyneuropathy Expected: 12/29/2024 (Approximate), Expires: 12/29/2025NOMS HealthcareComment on above:Expected: 12/29/2024 (Approximate), Expires: 12/29/2025Start: 12-29-2024 End: 23-03-1893Tklvmv Ab [Presence] in Serum by RPRRPR Lab Routine Polyneuropathy Expected: 12/29/2024 (Approximate), Expires: 12/29/2025[facility] Work Phone: comment on above:Expected: 12/29/2024 (Approximate), Expires: 12/29/2025Start: 12-29-2024 End: 42-33-2531Ckyaduwwmu factor [Units/volume] in Serum or PlasmaRheumatoid factor Lab Routine Polyneuropathy Expected: 12/29/2024 (Approximate), Expires: 12/29/2025NOM[facility] HealthcareComment on above:Expected: 12/29/2024 (Approximate), Expires: 12/29/2025Start: 69-42-8050Fekjcdp stimulating hormone measurementTSPost [facility] – TulsaStart: 11-12-2024 End: 41-91-3595Cwscpeb encounter procedureNOMS [facility] ROUTEComment on above:ArrivedStart: 10-12-2024 End: 25-66-2575Msomlqibz (Vitamin B12) [Mass/volume] in Serum or PlasmaVitamin B12 Lab Routine Polyneuropathy Expected: 10/12/2024 (Approximate), Expires: 10/12/2025[facility] Work Phone: comment on above:Expected: 10/12/2024 (Approximate), Expires: 10/12/2025Start: 10-12-2024 End: 07-38-9574Cilmiogyfb A1c/Hemoglobin.total in BloodHemoglobin A1c Lab Routine Polyneuropathy Expected: 10/12/2024 (Approximate), Expires: 10/12/2025 NOMS HealthcareComment on above:Expected: 10/12/2024 (Approximate), Expires: 10/12/2025Start: 10-12-2024 End: 83-07-0074WBSM, TOTAL AB WITH REFLEX ([facility])LYME, TOTAL AB WITH REFLEX ([facility]) Lab Routine Polyneuropathy Expected: 10/12/2024 (Approximate), Expires: 10/12/2025[facility] HealthcareComment on above:Expected: 10/12/2024 (Approximate), Expires: 10/12/2025Start: 10-12-2024 End: 49-07-0699Hxruzax Ab [Titer] in Serum by ImmunofluorescenceANA Lab Routine Polyneuropathy Expected: 10/12/2024 (Approximate), Expires: 10/12/2025[facility] HealthcareComment on above:Expected: 10/12/2024 (Approximate), Expires: 10/12/2025Start: 10-12-2024 End: 53-03-6638Xmiypme electrophoresis, serumProtein electrophoresis, serum Lab Routine Polyneuropathy Expected: 10/12/2024 (Approximate), Expires: 10/12/2025 NOM[facility] HealthcareComment on above:Expected: 10/12/2024 (Approximate), Expires: 10/12/2025Start: 10-12-2024 End: 24-28-8486Tyrnvrw J9Vaddjul B6 Lab Routine Polyneuropathy Expected: 10/12/2024 (Approximate), Expires: 10/12/2025NO[facility] HealthcareComment on above: Expected: 10/12/2024 (Approximate), Expires: 10/12/2025Start: 10-12-2024 End: 60-71-4695Glnfgnx encounter nihyiuhec20/11/2024 1:15 PM EST Office Visit [facility] [address] [place] [address] Jazmine Benoit DO [address] [place] [address] [facility] ROUTEStart: 09-15-2024 End: 11-23-4601Yiipjmy encounter procedureNOMERCER COUNTY COMMUNITY [facility] ROUTEComment on above:ArrivedStart: 09-15-2024 End: 26-03-6933Btkzns, serumCopper, serum Lab Routine Polyneuropathy Long-term use of high-risk medication Expected: 09/15/2024(Approximate), Expires: 09/15/2025[facility] Work Phone: comment on above:Expected: 09/15/2024 (Approximate), Expires: 09/15/2025Start: 09-15-2024 End: 95-41-9452Agcmtaekicphso electrophoresisImmunofixation electrophoresis Lab Routine Polyneuropathy Long-term use of high-risk medication Expected: 09/15/2024 (Approximate), Expires: 09/15/2025[facility] HealthcareComment on above: Expected: 09/15/2024 (Approximate), Expires: 09/15/2025Start: 09-15-2024 End: 52-82-0893KJ Lumbar spine WO contrastMR lumbar spine wo contrast Imaging Routine Degeneration of intervertebral disc of lumbar region with discogenic back pain and lower extremity pain Expected: 09/15/2024, Expires: 09/15/2025[facility] HealthcareComment on above:Expected: 09/15/2024, Expires: 09/15/2025Start: 09-15-2024 End: 44-61-3009Gxxtha Ab [Presence] in Serum by RPRRPR Lab Routine Polyneuropathy Long-term use of high-risk medication Expected: 09/15/2024 (Approximate), Expires: 09/15/2025[facility] HealthcareComment on above:Expected: 09/15/2024 (Approximate), Expires: 09/15/2025Start: 09-15-2024 End: 29-53-7088Rhesdpcjyqx [Units/volume] in Serum or PlasmaTSH Lab Routine Polyneuropathy Long-term use of high-risk medication Expected: 09/15/2024 (Approximate), Expires: 09/15/2025[facility] HealthcareComment on above:Expected: 09/15/2024 (Approximate), Expires: 09/15/2025Start: 09-15-2024 End: 37-93-9381Oatezer T1Zwlaxfe B6 Lab Routine Polyneuropathy Long-term use of high-risk medication Expected: 09/15/2024 (Approximate), Expires: 09/15/2025[facility] HealthcareComment on above:Expected: 09/15/2024 (Approximate), Expires: 09/15/2025Start: 09-10-2024 End: 80-56-0003ojzzekwmwp76/10/2024 10:00 AM EDT Treatment [facility] [address] [place] [address] Josh Vela, CORONA [facility] CI PTStart: 09-08-2024 End: 06-13-0370Rntcvco encounter yippylrig38/08/2024 1:50 PM EDT Office Visit [facility] [address] [place] [address] Antonietta Ba, CHANGE MANAGER-GARMENT FITTER [address] [place] [address] [facility] SWS DERMStart: 09-07-2024 End: 55-48-8902wmdzxciqjq68/07/2024 10:30 AM EDT Treatment [facility] [address] [place] [address] Bal Baeza, PT [address] [place] [address] [facility] CI PTStart: 09-03-2024 End: 13-98-9741wfwhoaccgm18/03/2024 10:00 AM EDT Treatment [facility] [address] [place] [address] Josh Vela, WILDLIFE BIOLOGIST [facility] CI PTStart: 09-01-2024 End: 00-34-6985hcqcincdzy43/01/2024 1:30 PM EDT Treatment [facility] [address] [place] [address] Daniela Velaissa, WILDLIFE BIOLOGIST [facility] CI PTStart: 08-13-2024 End: 76-96-8714bmwvxqihlb41/12/2024 11:00 AM EDT Treatment [facility] [address] [place] [address] Daniela Velaissa, WILDLIFE BIOLOGIST [facility] CI PTStart: 08-12-2024 End: 64-73-3016Kgbhypp encounter mvffleiee09/11/2024 1:15 PM EDT Office Visit [facility] [address] [place] [address], [place] [address] Jazmine Benoit, DO [address] [place] [address] [facility] R[facility]TEStart: 08-11-2024 Comprehensive metabolic 2000 panel - Serum or PlasmaSouthwest General Health Centertart: 08-11-2024 End: 35-93-1210NeemfkpizSouthwest General Health Centertart: 08-10-2024 End: 52-73-4776JneqmnnmlSouthwest General Health Centertart: 99-84-6790Avhlsex referral for medical consultationSouthwest General Health Centertart: 81-54-0297Mqiuptgk admissionSouthwest General Health Centertart: 08-05-2024 End: 75-08-0176uezuipsboz12/04/2024 12:30 PM EDT Treatment [facility] [address] [place] [address] Josh Vela, WILDLIFE BIOLOGIST [facility] CI PTStart: 20-21-8066TUYHM-19 Vaccine ( season)COVID-19 Vaccine ( season)[facility]: 81-15-6709Ztgwrfzeg vaccinationInfluenza Vaccine (#1)[facility]St[facility]: 07-28-2024 End: 04-73-3413ekbnspsikl75/27/2024 11:30 AM EDT Evaluation [facility] [address] [place] [address] Bal Baeza, PT [address] [place] [address] [facility] CI PTStart: 07-27-2024 End: 08-05-5865Gnjqjkj encounter eymxdmsnr60/26/2024 10:00 AM EDT Office Visit [place] [address] [facility] [address] [place] [address] Melanie Tracy, CHANGE MANAGER-GARMENT FITTER [address] [facility] [address] [place] [address] [facility]: 07-23-2024 End: 92-59-3423Dfoihld encounter smwgstlly27/22/2024 10:00 AM EDT Procedure Visit [facility] [address] [facility] [place], [place] Jazmine Benoit DO [address] [place] [address] ArrivedNONEW BRIDGE [facility] STATE ROUTEComment on above:ArrivedStart: 82-37-7390Hzkmhlowd for malignant neoplasm of breast MammogramUnKettering Health Troy: 01-23-2024 End: 56-00-8774Hyiec 1996 panel - Serum or PlasmaLipid Panel Lab Routine Mixed hyperlipidemia Expected: 01/23/2024 (Approximate), Expires: 01/23/2025[facility] Work Phone: Comment on above:Expected: 01/23/2024 (Approximate), Expires: 01/23/2025Start: 01-23-2024 End: 89-25-0425QW Heart TransthoracicTransthoracic Echo Complete Echocardiography Routine Coronary artery disease, unspecified vessel orlesion type, unspecified whether angina present, unspecified whether [place]urg or transplanted heart History of PTCA Ischemic cardiomyopathy Hypertension, unspecified type Other fatigue Difficulty breathing Expected: 01/23/2024 (Approximate), Expires: [facility] Work Phone: Comment on above:Expected: 01/23/2024 (Approximate), Expires: 01/23/2026Start: 51-02-0177PJW, Provider: Ivan Mejia, Status: Pen, Time: 9:50 AMFUV, Provider: Ivan Mejia, Status: Pen, Time: 9:50 AMRiverView [facility] [address] DO Work Phone: Start: 11-18-1290VFDOU-19 Vaccine ( season) COVID-19 Vaccine ( season)[facility]: 50-17-1783Adlgyyquq vaccinationInfluenza Vaccine (#1)[facility]: 68-67-8280Sfuot X-ray of [facility] Start: 33-96-5543Ivpvvuspik examination of kneeXR knee LT 4V*[facility] Centertart: 20-76-7659K-ray of left footXR foot LT min 3V*[facility] Centertart: 76-84-9972RH Foot - left GE 3 ViewsSouthwest General Health Centertart: 07-53-6311WF Knee - left 4 [facility] Healthtart: 19-84-1056RHV, Provider: Ivan Mejia, Status: Pen, Time: 10:40 AMFUV, Provider: Ivan Mejia, Status: Pen, Time: 10:40 AMSauk [facility] 250 DO Work Phone: Start: 67-25-1990LwcbsiqkjtqelxizQfdybkxbtitjdcUniversity Hospitals [facility]: 39-46-3724KGK, Provider: Melanie Marinelli, Status: Pen, Time: 10:30 AMFUV, Provider: Melanie Marinelli, Status: Pen, Time: 10:30 AMMPSt. Francis Regional Medical CenterLewis 250 DO Work Phone: Start: 02-49-3062OPU, Provider: Ivan Mejia, Status: Pen, Time: 10:40 AMFUV, Provider: Ivan Mejia, Status: Pen, Time: 10:40 [facility] Work Phone: Start: 18-80-7100GXAX, Provider: ERA HHVI ULTRASOUND 01,[id number], Status: Pen, Time: 10:45 AMECHO, Provider: ERA HHVI ULTRASOUND 01,[id number], Status: Pen, Time: 10:45 [facility] Work Phone: Start: 92-73-8303LCB, Provider: Melanie Marinelli, Status: Pen, Time: 1:00 PMFUV, Provider: Melanie Marinelli, Status: Pen, Time: 1:00 PMMP-[facility] DO Work Phone: Start: 16-89-9017YYZ High Risk: (Elderly (60+) or Population) (1 - Risk 60-74 years 1-dose series)RSV High Risk: (Elderly (60+) or Population) (1 - Risk 60-74 years 1-dose series)[facility]: 08-30-0298CZR High Risk: (Elderly (60+) or Population) (1 - Risk 50-74 years 1-dose series)RSV High Risk: (Elderly (60+) or Population) (1 - Risk 50-74 years 1-dose series)[facility]: 95-34-7798Jahxsy Vaccines (1 of 2)Zoster Vaccines (1 of 2) [facility]: 77-39-1601Oxjzmusdc for malignant neoplasm of cervixNOMS HealthcareStart: 55-38-7748MGuM/Tdap/Td Vaccines (1 - Tdap)DTaP/Tdap/Td Vaccines (1 - Tdap)[facility]: 09-93-1359Gkzldadnh for malignant neoplasm of cervixDunlap Memorial Hospital: 15-03-5580Yzyvzlqqugfu vaccinationPneumococcal Vaccine (1 of 2 - PCV)[facility]: 78-76-6377Qcnhnyczsxly Vaccine: Pediatrics (0 to 5 Years) and At-Risk Patients (6 to 64 Years) (1 of 2 - PCV) Pneumococcal Vaccine: Pediatrics (0 to 5 Years) and At-Risk Patients (6 to 64 Years) (1 of 2 - PCV)[facility]: 27-73-8716Qzsud screening for protein CKD: Urine Protein ScreeningDunlap Memorial Hospital: 1978 Diabetes mellitus screeningDiabetes ScreeningGlenbeigh Hospital Start: 33-32-5372Uwjrinitl C screeningHepatitis C ScreeningDunlap Memorial Hospital: 48-67-6162QIuE/Tdap/Td Vaccines (1 - Tdap)DTaP/Tdap/Td Vaccines (1 - Tdap)[facility]: 85-96-7682Pqrrfshajuxr Vaccine: Pediatrics (0 to 5 Years) and At-Risk Patients (6 to 64 Years) (1 - PCV) Pneumococcal Vaccine: Pediatrics (0 to 5 Years) and At-Risk Patients (6 to 64 Years) (1 - PCV)[facility]: 04-35-8891ODA Vaccines (1 of 1 - Standard series)MMR Vaccines (1 of 1 - Standard series)[facility]: 14-37-2557HOVWK-19 Vaccine (#1)COVID-19 Vaccine (#1)[facility]: 91-68-7021Pxxlbexuok measurement Creatinine [facility]: 25-56-7534EXJ screening HIV ScreeningDunlap Memorial Hospital: 41-83-5757Gbgutuuwo measurementPotassium LevelDunlap Memorial Hospital: 1960 Screening for malignant neoplasm of colonUnKettering Health [facility]: 39-32-1915Ziifgwari for osteoporosisBone Density ScanDunlap Memorial Hospital: 82-84-5601Loziif Adult PhysicalYearly Adult PhysicalUnMercy Hospital25-hydroxyvitamin D3 [Mass/volume] in Serum or Plasma Vitamin D 25 hydroxy Total Lab Routine Weakness of both lower extremities Ordered: 08/05/2024[facility] Healthcare Work Phone: Comment on above:Ordered: 4Cardiac event recordingBucyrus Community HospitalCobalamin (Vitamin B12) [Mass/volume] in Serum or PlasmaVitamin B12 Lab Routine Weakness of both lower extremities Ordered: 08/05/2024[facility] HealthcareComment on above:Ordered: 4Patient EducationWhite Hospital Ctr Work Phone: Patient referralWhite Hospital Ctr Work Phone: URINARY TRACT INFECTION (HTRX)URINARY TRACT INFECTION (HTRX) Lab Routine Acute cystitis with hematuria Ordered: 10/21/2024[facility] Central Test Work Phone: Comment on above:Ordered: 10/21/2024XR Cervical spine Views W flexion and W extensionBucyrus Community Hospital Immunizations Immunization DateImmunizationNotesCare OyjldvkqGvjjqzmb83-34-1177Nhlhee-ThzBCnwd COVID-19 Vacc 30 MCG/0.3ML Intramuscular SuspensionRockcastle Regional Hospitalert Social Pulse Decker Work Phone: [facility]01-06-2022Pfizer- BioNTech COVID-19 Vacc 30 MCG/0.3ML Intramuscular SuspensionRockcastle Regional Hospitalert L Decker Work Phone: [facility]12-29-2021Influenza, injectable, Madin Mary Canine Kidney, preservative free, quadrivalentRobert Leatt Work Phone: [facility] HealthNgwzylegpi21-26-4723bkapgcxvg virus vaccine, unspecified formulationIvan Mejia DO Work Phone: [facility] Work Phone: [phone]) [phone] - 10 Fatuma Monroe Other Lindsay [employer] Other [id number], seasonal, injectableReferring Provider Unknown-[facility] 250 DO Work Phone: [phone], seasonal, injectableGina Risaliti HOOP PUNCH AND COILER OPERATOR Work Phone: [facility] HealthSmnhiewbci44-06-2387tvptxkzzb, injectable, quadrivalent, preservative freeReferring Provider UnknownBucyrus Community Hospital09-26-2018influenza, seasonal, injectablePatient ObjectionParemigio Monroe Other [facility] [employer] Other influenza virus vaccine, unspecified formulationRobpresbyterian medical center-rio rancho Veronique Decker Work Phone: [phone]-DvnrtRiverView Health Clinic 250 DO Work Phone: Comment on above:2008NEGATED: Highlighted row has not occurred!08-18-5819ckrbkildf, seasonal, injectablePatient ObjectionDewilberto Rueda Other [facility] Payers DatePayer CategoryPayerPolicy [id number]-fpl [id number] Care (Private) 1.2.840.213089.1.13.647.2.7.9.773810.455260.08364-72-0365Ddqalkd Health Insurance1.2.840.368643.1.13.647.2.7.3.383137.29271-33-6434RauqPresbyterian Medical Center-Rio [id number] 2.16.840.7.19745[id number] 2.16.840.1.356923.3.579.2.3[id number] 2.16.840.1.497306.3.579.2.28041-47-4417Rrohmwo6846195 2.16.840.1.060089.3.579.2.08247-11-3357Jtzhbom0182559 2.16.840.1.581372.3.579.2.08199-87-7312Ciacugf8139978 2.16.840.1.893827.3.579.2.96035-57-4439Ndkgmpb9643411 2.16.840.1.736026.3.579.2.23089-82-6385Kenbqfk9878041 2.840.1.194652.3.579.2.35443-25-7861Qisxrdx219718592 2.840.1.983962.3.579.2.37752-82-3775Bgivnyd119123195 2.840.1.295239.3.579.2.69230-39-4180Tlybqgy25391570 2.840.1.214645.3.579.2.298775-06-6731Ygpuovz02009991 2.840.1.156711.3.579.2.48144-78-3515Dykzhbn47862831 2.840.1.508706.3.579.2.07423-10-8886Cvswqes85284317 2.840.1.610587.3.579.2.08653-15-6696Omzbqwe86393380 2.840.1.881352.3.579.2.046146-25-5489Rrlikqh49859663 2.16840.1.520637.3.579.2.743345-97-7646Qdiwtjs97049998 2.840.1.496204.3.579.2.954419-36-0485Segtzez99517856 2.16.840.1.313078.3.579.2.874940-35-4823Gynvmpe45623487 2..840.1.691730.3.579.2.283993-54-3490Dszwwdf60484964 2..840.1.286349.3.579.2.328744-21-2230Ekmosav1220633 2.16.840.1.447158.3.579.2.861575-18-9122Ipqpafd7263409 2.840.1.002805.3.579.2.660805-09-7784Udrhfmo8122176 2.840.1.470108.3.579.2.731797-17-7415Wgnwsjl9106512 2.0.1.358895.3.579.2.460839-39-7327Wypwspk3442708 2.840.1.219848.3.579.2.807243-07-0964Iruyfuy6076565 2.840.1.328860.3.579.2.594395-07-5860Dotihsq1027524 2.840.1.061534.3.579.2.658733-65-2257Uiapgvp3556403 2.840.1.269041.3.579.2.589110-13-5653Xboucxu6344837 2.840.1.288649.3.579.2.879619-25-1043Xajhtfc6959490 2.840.1.288246.3.579.2.243447-80-3761Tvappfg0866333 2.840.1.367549.3.579.2.741646-80-3770Mogemlm3744887 2..0.1.246429.3.579.2.648523-01-0305Fetpdtb7078681 2.0.1.296386.3.579.2.343275-23-0010Iaqzwfs5982651 2.0.1.798684.3.579.2.881351-48-8458Fpwbfov1258725 2.0.1.209116.3.579.2.864228-29-4365Wmzylap8530780 2..1.415110.3.579.2.762948-37-1025Bxdlbpa1578966 2..1.316238.3.579.2.237824-30-2972Irrcvoj733590806 2..1.310956.3.579.2.119442-06-9124Qtowist066710340 2..1.389186.3.579.2.892672-48-9384Icgnfhs72333986 2..1.387132.19 UnknownUnknownAnthem /DNELF289Z78930 y6070euz-aprr-1n8s-x1m7-704nsbl986yv Efpzkck22224463 2.0.1.229621.3.579.2.155Hmfacwi14724500 2.0.1.710378.3.579.2.181Mkqakwr56679453 2.0.1.978564.3.579.2.531 Udovyes31608577 2.0.1.081485.3.579.2.531Worker's CompensationIndustrial Self Ins [id number]-534d-t0870y7x5sku Social History DateTypeDetailFacilityStart: 12-18-2023 End: 91-68-7121Ijnqogru alcohol useModerate alcohol useNOCT HealthcareComment on above:very seldom;cup of coffee daily, couple cups of tea a week, pop couple times a week;Quit smoking 20 years ago;Quit 2000;socially;2-3 cups coffee / tea daily;Start: 12-18-2023 End: 38-06-5010Zdl Assigned At [facility] CenterNOCT HealthcareStart: 07-02-2023 End: 88-58-9519Eggpbwp smoking status NHISEx-smoker (finding)[facility] Centertart: 77-97-9363Ggy Assigned At [facility] CenterFeSelect Medical Cleveland Clinic Rehabilitation Hospital, Edwin Shawtart: 12-02-1971 End: 28-95-4886Lrtuvxr of tobacco useCurrent smokerUnMercy Hospital Work Phone: Start: 12-02-1970 End: 43-65-9635Ltkxcyv of tobacco useCigarette SmokerUnMercy Hospital Work Phone: Start: 01-23-2024 End: 96-89-0526Vkyryog use and exposureSmokeless tobacco non-userUnMercy Hospital Work Phone: Start: 01-23-2024 End: 54-45-6244Wydxyrx intakeCurrent drinker of alcohol (finding)[facility] Work Phone: Start: 74-39-6770Ppgotss CommentrarelyUnMercy Hospital Work Phone: Start: 57-23-5763Bvh Assigned At BirthNot on file [facility] Work Phone: Start: 01-13-2024 End: 77-18-6166Wvxhamya to SARS-CoV-2 (event)Not sureGlenbeigh HospitalStart: 08-12-2024 End: 54-93-5200Fpyoqnh smoking status NHISNever smoked tobacco (finding) [facility] Centertart: 25-91-7031Wcnndwb Comment1 drink less than monthly. Caffeine: Coffee, 4-5 daily. Pop, 3 cans weeklyNOMS Healthcare Start: 31-12-8822Ookcjaz Comment1 drink of alcohol or less per month. Caffeine: Coffee, 4-5 daily. Pop, 3 cans weeklyNOMS HealthcareStart: 10-27-2022 End: 26-71-8718FeyFqsple (finding)[facility] Centertart: 95-54-0009Mkcubvm CommentTwice a year. Caffeine: Coffee, 4-5 daily. Pop, 3 cans weeklyNOMS HealthcareHow often to you have a drink containing alcohol?Monthly or lessNOMS HealthcareHow many standard drinks containing alcohol do you have on a typical day?1 or 2NOMS HealthcareHow often do you have 6 or more drinks on 1 occasion?NeverNOMS HealthcareStart: 33-90-7599TjgXsjbjeFDPP Healthcare Medical Equipment Procedure CodeEquipment CodeEquipment Original TextEquipment IdentifierDates Drug-eluting coronary artery stent, isc-mlnzgvphtabwl-eifqyeo-coated ()[id number] FDAStart: 79-34-1460Nqfz-eluting coronary artery stent, hrp-xqeoyoqarctsg-dobgfpz-coated()[id number] FDAStart: 08-23-2021 Goals DatePatient GoalDesired Activity/State Functional Status ZppnKvljohomgrGphvsqAqpyftti27-36-3698Rfitoidnqz eyjoal719/[address] [place] [address] Work Phone: 1(499) [phone]qo signs80 10/04/2025 11:42 AM Rg Mendoza, [facility] Work Phone: [phone]) [phone]zfdydupGlenbeigh Hospital Work Phone: 1(362) [phone]odtj Health Questionnaire 2 item (PHQ-2) [Reported][facility] HealthFwjmgohboe06-21-4429Sfgdb score [AUDIT-C]1 06/01/2025 11:30 AM Miya Condon MANOMS Lxdzkreumj78-24-0645Isdpcywcov statusPatient at [facility] Work Phone: [phone]) [phone]zoyokae statusPatient at [facility] Work Phone: [facility] Mental Status SfbcJqwjyopozaPbqjsjVrecwsyh52-62-2400Gdfdgrgnw functionCognitive Status Patient at [facility] Work Phone: [phone]ojfhz functionCognitive Status Patient at [facility] Work Phone: Clinical Notes 09-15-2021 to 10-06-2025 Note Date & CvlwIgvdQipvqrvh89-75-5377 Evaluation + Plan note* Assessment & Plan Note - JOURDAN Sheridan - 10/06/2025 12:19 PM ESTAssociated Problem(s): BMI 37.0-37.9, adult Reviewed the merits of healthy lifestyle choices on overall cardiovascular health. [facility] Work Phone: 1(948) 715-771611-05-2025 Miscellaneous Notes* Assessment & Plan Note - JOURDAN Sheridan - 10/06/2025 12:19 PM ESTAssociated Problem(s): BMI 37.0-37.9, adult Reviewed the merits [...] April 07, 2021 presented with acute inferior NH. At that time had PCI/[place] proximal RCA with IVUS guidance and provisional PTCA PLV. August 23, 2021 mid RCA 50% with negative IFR after patent stent. Mild/moderate left main with IVUS 40% MLA 2.5 x 2.5 with reference size 4 mm. OM1/mid circumflex PCI/[place] 2.5 x 15 mm Current daily activity greater than 4 METS without concerning symptoms documented in this [facility] Work Phone: 1(817) 999-597811-05-2025 Evaluation + Plan note* Assessment & Plan Note - JOURDAN Sheridan - 10/06/2025 12:18 PM ESTAssociated Problem(s): Mitral valve regurgitation January 2025 TTE MR mild [facility] Work Phone: 1(699) 585-829811-05-2025 Evaluation + Plan note* Assessment & Plan Note - JOURDAN Sheridan - 10/06/2025 12:18 PM ESTAssociated Problem(s): Ischemic cardiomyopathy ICM HF improved EF 55-60% January 2025 TTE ([facility]) January 2024 TTE EF 50-55% Aug 2021 cath EF 35% Nov 2021 TTE EF 55% [facility] Work Phone: 1(244) 962-279911-05-2025 Evaluation + Plan note* Assessment & Plan Note - JOURDAN Sheridan - 10/06/2025 12:17 PM ESTAssociated Problem(s): Hypertension Optimal in office [facility] Work Phone: [phone] 122-712811-05-2025 Evaluation + Plan note* Assessment & Plan Note - JOURDAN Sheridan - 10/06/2025 12:17 PM ESTAssociated Problem(s): Hyperlipemia On high intensity statin July 2025 HDL 57, LDL 87 [facility] Work Phone: [phone] 947-995211-05-2025 Evaluation + Plan note* Assessment & Plan Note - JOURDAN Sheridan - 10/06/2025 12:17 PM ESTAssociated Problem(s): CAD (coronary artery disease) April 07, 2021 presented with acute inferior NH. At that time had PCI/[place] proximal RCA with IVUS guidance and provisional PTCA PLV. August 23, 2021 mid RCA 50% with negative IFR after patent stent. Mild/moderate left main with IVUS 40% MLA 2.5 x 2.5 with reference size 4 mm. 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 [...] April 07, 2021 presented with acute inferior NH. At that time had PCI/[place] proximal RCA [...] HF improved EF 55-60% January 2025 TTE ([facility]) January 2024 TTE EF 50-55% Aug [...] new symptoms arise. Dr. Mejia 6 months Melanie Tracy MSN, CHANGE MANAGER-GARMENT FITTER, PMHNP-[facility] [place], [place] Please excuse any errors in grammar or translation related to this dictation. Voice recognition software was utilized to prepare this document. documented in this encounterGlenbeigh Hospital Work Phone: 1([phone]) 420-306111-03-2025 Instructions* Patient Instructions* JOURDAN Sheridan - 10/04/2025 11:30 [...] Dr. Mejia 6 months documented in this encounterGlenbeigh Hospital Work Phone: [phone] 466-290109-25-2025 Telephone encounter Note* Telephone Encounter - Lluvia Gonzalez - 08/26/2025 3:56 PM EDT Got the forms from the front elevator operator and will give to dr newell nurse [address]Kgjkxpzuix44-13-7541 Miscellaneous Notes* Telephone Encounter - Lluvia Carrizalesves - 08/26/2025 3:56 PM EDT Got the forms from the front elevator operator and will give to dr newell nurse * Telephone Encounter - Alicia Esteban - 08/26/2025 3:53 PM EDT Pt dropped off forms to be filled out, please and thank you documented in this [facility]09-25-2025 Telephone encounter Note* Telephone Encounter - Alicia Grierb - 08/26/2025 3:53 PM EDT Pt dropped off forms to be filled out, please and thank you [facility] HealthUxebesyren00-46-3735 Miscellaneous Notes* Telephone Encounter - Tiffany Prescott - 08/16/2025 11:31 AM EDT Work note documented in this [facility]09-15-2025 Telephone encounter Note* Telephone Encounter - Tiffany Prescott - 08/16/2025 11:31 AM EDT Work note [place] [address]Ndxjrvggvh04-65-0130 History of Present illness Narrative* MANUEL Roldan [...] TO WRIST / N/T TO [facility]INGERS PT [facility] PT WOULD LIKE TO DISCUSS RTW. CONTINUES [...] Referral Reason: Specialty Services Required Referral Location: [place] Central Scheduling Requested Specialty: Physical Therapy Number [...] requiring urgent evaluation. Visit was preformed using [employer]-remotely piloted vehicle controller speech recognition. documented in this encounterCrittenton Behavioral HealthDzsjczqetp50-90-5119 History of Present illness Narrative* Lesa Alcantara NP - 07/21/2025 1:00 PM EDT Images from [...] dosage. Bruising She was advised by her bank vault attendant to discontinue baby aspirin due to bruising [...] appointment at the sleep study lab in [place] but preferred to go to the one in [place]. However, she was not scheduled forit. - Onset: Ongoing. - Character: Sleep disturbances, tiredness from amitriptyline. - Alleviating/Aggravating Factors: Medication to aid sleep, prefers [place] sleep study lab. - Timing: Gets up [...] lumbosacral region Stage 3a chronic kidney disease ([facility]) 06/19/2023 SURGICAL HISTORY: Past Surgical History: [...] panel 2. Stage 3a chronic kidney disease ([facility]) Labs stable. Continue to monitor. - Comprehensive metabolic panel; Future - Vitamin D 25 hydroxy Total; Future - PTH, intact; Future - Phosphorus; Future - Comprehensive metabolic panel - Vitamin D 25 hydroxy Total - PTH, intact - Phosphorus 3. Coronary artery disease involving [place] coronary artery of [place] heart without angina pectoris Denies chest pain [...] study. - Referral for sleep study at [place]. - Ambulatory referral to Sleep Medicine; Future 13. Colon cancer screening This is overdue. - Ambulatory referral to Gastroenterology; Future 14. Severe obesity (BMI 35.0-35.9 with comorbidity) ([facility]) Weight management. - Prescription for semaglutide sent [...] colonoscopy. - Referral for sleep study at [place]. Dr. Newell was present in the office at the time of visit today and is supervising patient care. I amfollowing Dr. Newell's established plan of care for the above issues. documented in this encounterCrittenton Behavioral HealthYyycmewvou14-63-8095 Evaluation note* Diagnosis Essential hypertension- Primary Unspecified essential hypertension Stage 3a chronic kidney disease ([facility] Coronary artery disease involving [place] coronary artery of [place] heart without angina pectoris Chronic systolic congestive [...] colon Severe obesity (BMI 35.0-35.9 with comorbidity) ([facility]) BMI 37.0-37.9, adult documented in this encounter [facility] HealthXbagmqrtkf70-02-8425 History of Present illness Narrative* MANUEL Roldan [...] to good progress. 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 Visit was preformed using [employer]-remotely piloted vehicle controller speech recognition. documented in this encounterCrittenton Behavioral HealthGzlefjonqu09-79-8802 History of Present illness Narrative* MANUEL Roldan - 06/11/2025 10:30 AM EDT Images from the original note were not included. Orthopedic Office note: NAME: Adela Hopkins : 1960 EST PT S/P LT SHOULDER SCOPE 04/30/25 (6WKS) - DOING WELL- PT IS CURRENTLY DOING HOME THERAPY WITH [facility]- NOTES SOME INTERMITTENT DISCOMFORT- GENERALLY IN THE [...] Referral Reason: Specialty Services Required Referral Location: [place] Central Scheduling Requested Specialty: Physical Therapy Number [...] outpatient therapy, which will be arranged at [place]. The focus will be on enhancing both [...] left arm. Treatment plan: Outpatient therapy at [place] to enhance active and passive range of [...] requiring urgent evaluation. Visit was preformed using [employer]-remotely piloted vehicle controller speech recognition. documented in this encounterCrittenton Behavioral HealthNtunxgzhyu00-73-6837 History of Present illness Narrative* MANUEL Burgess [...] ago. She had an ultrasound done on [facility] last week but has not received any feedback regarding the results. PAST SURGICAL HISTORY: Rotator cuff repair and bicep repair surgery 5 weeks ago. Three neck surgeries. I have reviewed and reconciled the history and medication list with the patient today. HISTORIES: PAST MEDICAL HISTORY: Past Medical History: Diagnosis Date Age-related osteoporosis without current pathological fracture 06/19/2023 Anemia 06/19/2023 Asthmatic bronchitis ([facility]) 06/19/2023 CAD (coronary artery disease) Chronic pansinusitis 06/19/2023 Congestive heart failure (HCC) 06/19/2023 Essential hypertension Gastroesophageal reflux disease 06/19/2023 History of hysterectomy 11/29/2021 Hyperlipemia Hypothyroidism Ischemic cardiomyopathy 06/19/2023 Microscopic hematuria 06/10/2023 Moderate major depression ([facility]) 06/19/2023 Neuropathy Legs/feet Nonrheumatic mitral valve regurgitation 12/26/2023 Radiculopathy, lumbosacral region Stage 3a chronic kidney disease ([facility]) 06/19/2023 SURGICAL HISTORY: Past Surgical History: [...] need for further intervention. documented in this encounterCrittenton Behavioral HealthCbujtblkno77-43-4069 Telephone encounter Note* Telephone Encounter - MANUEL Roldan - 05/19/2025 4:12 PM EDT Home PT order placed- Nakul, are you able to see her ( lives in [place]) She is s/p left shoulder scope: PROM only, may start AROM at 6 wks post op. no strengthening or resistance. S/p SAD, Rotator cuff repair and Biceps tenodesis [facility] HealthOlskxdzppd89-20-5890 Miscellaneous Notes* Telephone Encounter - MANUEL Roldan - 05/19/2025 4:12 PM EDT Home PT order placed- Nakul, are you able to see her ( lives in [place]) She is s/p left shoulder scope: PROM [...] home health PT. Please let her know [phone] * Telephone Encounter - Lilo Hawthorne - 05/17/2025 11:42 AM EDT Tried to contact to schedule PT Eval for PO L shoulder scope; dos 04/30. LM requesting a call back josephine; 6:00 pm available today for Eval. documented in this encounterCrittenton Behavioral HealthHcluklwnlp70-44-0373 Telephone encounter Note* Telephone Encounter - Lilo Hawthorne - 05/19/2025 2:12 PM EDT Noting Abby's message; I was just going to note to Glen I've LM 3x's requesting call back. I have received no attempt. [facility] HealthLuxbzenqee85-94-2858 Telephone encounter Note* Telephone Encounter - Abby Ballesteros - 05/19/2025 1:05 PM EDT Patient called and left vm. She stated she does not want to do rafy for PT. She does need to do the PT at her home. Please advise. [facility] HealthHtdnhgnxbv32-04-4077 Telephone encounter Note* Telephone Encounter - Lilo Hawthorne - 05/19/2025 12:51 PM EDT Attempted to contact but no answer; LM. [facility] HealthKtirrtclze01-65-5305 Telephone encounter Note* Telephone Encounter - Lilo Hawthorne - 05/18/2025 9:37 AM EDT Just tried to contact to offer scheduling; but had to lm. I informed of time availability and requested a call back josephine. [address]Iirfjpwpgt92-90-3533 Telephone encounter Note* Telephone Encounter - Lilo Hawthorne - 05/18/2025 8:08 AM EDT Glen, Once I received the referral I had contacted but had to lm; I did note we had a later PT open yesterday. I received no call back. We have 7-5:30 M-Th; 7-3:30 F. I can try again today to contact. [facility] HealthLsudrmamqz28-76-7535 Telephone encounter Note* Telephone Encounter - MANUEL Roldan - 05/17/2025 9:08 PM EDT Lilo, Do you not have hours that work with her husbands schedule? [facility] HealthIycsalqmnt73-59-4610 Telephone encounter Note* Telephone Encounter - Abby Ballesteros - 05/17/2025 2:19 PM EDT Patient called in stating she does not have a way to get to PT since her 's work schedule changed. She is asking if she can do home health PT. Please let her know [phone] [facility] HealthBimvwoszkb72-17-7943 Telephone encounter Note* Telephone Encounter - Lilo Hawthorne - 05/17/2025 11:42 AM EDT Tried to contact to schedule PT Eval for PO L shoulder scope; dos 04/30. LM requesting a call back josephine; 6:00 pm available today for Eval. [facility] HealthNkjuvhbgia76-58-3794 History of Present illness Narrative* MANUEL Roldan [...] a refill of her analgesic medication, specifically Owenton, to facilitate her therapy sessions. The treatment [...] range of motion exercises only, refill of Owenton for pain management, bedside exercises demonstrated. Follow-up: [...] requiring urgent evaluation. Visit was preformed using [employer]-remotely piloted vehicle controller speech recognition. documented in this encounterCrittenton Behavioral HealthLprqukryvj90-06-9094 Instructions* Patient Instructions* MANUEL Roladn - 05/14/2025 10:30 AM EDT Discussed patient [...] schedule as soon aspossible documented in this encounterCrittenton Behavioral HealthUyzfyfnceu42-33-4333 Note [id number]#1.00[facility]06-02-2025 [id number] 04-30-2025 [facility] SURGERY Clinical Discharge Summary PERSON INFORMATION Name ADELA HOPKINS Age 64 Years 1960 Sex FEMALE Language Syriac PCP Robert Newell Marital Status Med Service Ambulatory Surgery Acct# Arrival 04/30/2025 10:21:22 Visit Reason SURGERY - LEFT SHOULDER ARHTROSCOPY WITH ROTATOR CUFF REPAIR Acuity LOS 057 07:44 Address: [address] [place] [address] Comment: PROVIDER INFORMATION VITALS INFORMATION Vital Sign [...] by mouth) 2 time (more content not included)...[facility]Uffcpwun79[facility]-1475 Telephone encounter Note* Telephone Encounter - Ger Jay NP - 04/29/2025 8:13 AM EDT Post op pain rx. PDMP reviewed [facility] HealthVnteovteey22-16-1904 Miscellaneous Notes* Telephone Encounter - Ger Jay NP - 04/29/2025 8:13 AM EDT Post op pain rx. PDMP reviewed documented in this encounterCrittenton Behavioral HealthHkjdclwntp69-50-9501 SalomónrSlade Villalobos reviews PAT information and testing results. Ok to proceed with procedure. No orders given. [Electronically Signed on: 04/09/2025 12:46 EDT] Nakul Hanson RN [Verified on: 04/09/2025 12:46 EDT] Nakul Hanson RNKettering Health PrebleSgqgrvhr80-30-7845 History of Present illness Narrative* MANUEL Roldan - 04/01/2025 10:30 AM EDT Images from the original note were not included. GENERAL HISTORY AND PHYSICAL: NAME: Adela Hopkins : 1960 HISTORY OF PRESENT ILLNESS: Adela Hopkins is an 64 y.o. @ female. Here for surgery instructions left shoulder scope April 30 @ [facility]. PAST MEDICAL HISTORY: Past Medical History: Diagnosis Date Age-related osteoporosis without current pathological fracture ([facility]) 06/19/2023 Anemia 06/19/2023 Asthmatic bronchitis ([facility]) 06/19/2023 CAD (coronary artery disease) ([facility]) Chronic pansinusitis 06/19/2023 Congestive heart failure ([facility]) 06/19/2023 Essential hypertension ([facility]) Gastroesophageal reflux disease 06/19/2023 History of hysterectomy 11/29/2021 Hyperlipemia ([facility]) Hypothyroidism ([facility]) Ischemic cardiomyopathy ([facility]) 06/19/2023 Microscopic hematuria 06/10/2023 Moderate major depression ([facility]) 06/19/2023 Neuropathy Legs/feet Nonrheumatic mitral valve regurgitation 12/26/2023 Radiculopathy, lumbosacral region Stage 3a chronic kidney disease (HCC) ([facility]) 06/19/2023 PAST SURGICAL HISTORY: Past Surgical History: Procedure Laterality Date APPENDECTOMY CERVICAL FUSION SECTION, LOW TRANSVERSE CHOLECYSTECTOMY CORONARY ANGIOPLASTY WITH STENT PLACEMENT 2020 HYSTERECTOMY KNEE SURGERY Right knee scope SHOULDER SURGERY Left 2010 SOCIAL HISTORY: Social History Occupational History Occupation: Disability. 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 SURGERY INSTRUCTIONS April @ [facility] INJECTION April ARTHREX NOTIFIED PLAVIX PROTOCOL GIVEN CARDIAC CLEARANCE RECEIVED LEONARDA PRE OP TESTING April @ 2:00 Follow up in about 6 weeks (around 05/14/2025) for Post-Op May 14 with [facility] in [place]. documented in this encounterCrittenton Behavioral HealthKkikugizxm54-20-1830 [place] [address] Pain Management Procedure Note Signed Patient: Adela Hopkins V MR#: [id number] : 1960 Acct:[id number] Age/Sex: 64 / F Adm Date: 5 Loc: Room: Type: [facility] Attending Dr: Jordan Salazar MD Copies to: [...] well and [facility] PLAN: The patient was instructed to call the clinic in 1 week to inform us of any progress.? The patient was encouraged to call at any time with any questions or concerns. Documented By: Jordan Salazar MD 02/03/25 0937 Signed By: 02/03/25 1205 [facility]02-22-2025 Evaluation note* Diagnosis Essential hypertension (CMS/HCC)- Primary Unspecified essential hypertension Stage 3a chronic kidney disease (HCC) (CMS/HCC) Coronary artery disease involving hydaburg coronary artery of hydaburg heart without angina pectoris (CMS/HCC) Chronic systolic [...] Cervicalgia Peripheral polyneuropathy documented in this encounter [facility] HealthOukcwswnzp83-88-5199 History of Present illness Narrative* Jr. 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 documented in this encounterCrittenton Behavioral HealthPxnexaxofo16-61-5610 Evaluation note* Diagnosis Onset Date Resolution Status Admit Date Lumbar radiculopathy acuteFebruary 2024 10:47amLumbosacral spondylosisacuteFebruary 2024 10:47amNeck painacuteFebruary 2024 10:47amOther chronic painacuteFebruary 2024 10:47amSacroiliitisacuteFebruary 2024 10:47am [facility] Work Phone: 1(267) 512-790202-18-2025 Evaluation note* Diagnosis Onset Date Resolution Status Admit Date Lumbar radiculopathy acuteFebruary 2024 10:47amLumbosacral spondylosisacuteFebruary 2024 10:47amNeck painacuteFebruary 2024 10:47amOther chronic painacuteFebruary 2024 10:47amSacroiliitisacuteFebruary 2024 10:47amCervical spondylosisacuteMarch 2024 11:26amLumbar radiculopathyacuteMarch 2024 11:26amLumbosacral spondylosisacuteMarch 2024 11:26amOther chronic painacuteMarch 2024 11:26amSacroiliitisacuteMarch 2024 11:26am [facility] Work Phone: 1(664) 704-216602-17-2025 History of Present illness Narrative* Robert Newell [...] Date Age-related osteoporosis without current pathological fracture ([facility]) 06/19/2023 Anemia 06/19/2023 Asthmatic bronchitis ([facility]) 06/19/2023 CAD (coronary artery disease) ([facility]) Chronic pansinusitis 06/19/2023 Congestive heart failure ([facility]) 06/19/2023 Essential hypertension ([facility]) Gastroesophageal reflux disease 06/19/2023 History of hysterectomy 11/29/2021 Hyperlipemia ([facility]) Hypothyroidism ([facility]) Ischemic cardiomyopathy ([facility]) 06/19/2023 Microscopic hematuria 06/10/2023 Moderate major depression ([facility]) 06/19/2023 Nonrheumatic mitral valve regurgitation 12/26/2023 Radiculopathy, lumbosacral region Stage 3a chronic kidney disease (HCC) ([facility]) 06/19/2023 SURGICAL HISTORY: Past Surgical History: Procedure [...] and differential 3. Coronary artery disease involving hydaburg coronary artery of hydaburg heart without angina pectoris(CMS/HCC) Doing well. Denies [...] neck surgeries with fusion. documented in this [facility]02-17-2025 Miscellaneous Notes* Result Encounter Note - Robert [...] Call if no better. documented in this [facility]02-17-2025 Progress note* Result Encounter Note - Robert Newell MD - 01/18/2025 1:00 PM EST Please call and tell her the thyroid is too high and we need to decrease the levothyroxine to 100 mcg once daily and check TSH in 6 weeks (send order). [facility] [id number] Progress note* Result Encounter Note - Robert Newell MD - 01/18/2025 1:00 PM EST Please call and tell her the urine culture was positive for infection. Send in Macrobid 100 mg PO BID x 5 days. Call if no better. [facility] [id number] History of Present illness Narrative* Ivan Mejia, - 01/06/2025 11:20 AM EST Subjective Adela Hopkins is a 64 y.o. female Chief Complaint Follow-up 64-year-old female returns for follow-up she is doing well she denies any cardiovascular events, complaints or nitrate usage, dyspnea or edema or hospitalizations or heart failure, ambulates and works independently without assistance. She sustained inferior NH in April 2021 with primary PCI of [...] type, unspecified whether angina present, unspecified whether hydaburg or transplanted heart Follow Up In Cardiology 2. History of PTCA 3. History of ST elevation myocardial infarction (STEMI) 4. Ischemic cardiomyopathy 5. Primary hypertension 6. Mixed hyperlipidemia 7. Nonrheumatic mitral valve regurgitation 8. Atypical chest pain 9. Former smoker 10. BMI 39.0-39.9,adult Scribe Attestation By signing my name below, Courtney Covington LPN, Scribe attest that this documentation has been prepared under the direction and in the presence of Loretta Mejia DO. Provider Attestation - Scribe documentation All medical record entries made by the Scribe were at my direction and personally dictated by me. Julieth reviewed the chart and agree that the record accurately reflects my personal performance of the history, physical exam, discussion and plan. [facility] Work Phone: 1(818) 739-138102-05-2025 Instructions* Patient Instructions* Courtney Bartlett LPN - [...] through Care Everywhere. * Heart Healthy Diet (Syriac) documented in this encounterGlen[facility] Hospital Work Phone: 1(618) 527-732801-28-2025 History of Present illness Narrative* Xu Clement NP - 12/29/2024 1:00 PM EST Images from [...] wrist extensors , wrist flexor , and artificial glass eye maker strength 4+/5. LUE strength deltoid , biceps , triceps , wrist extensors , wrist flexor , and artificial glass eye maker strength 4+/5. RLE strength iliopsoas, quadriceps, tibialis [...] reflex 0. LLE knee reflex 0. Coordination: Qdgvzc-nm-huck testing normal. Rapid alternating movements are normal. Gait: Steady. Review and summary of old records: Labs on 12/14/2024: Myoglobin 23, aldolase 3.2, CK 31 (all mildly low). Vitamin B12 744. PAPI negative. Lyme total Ab negative. Vitamin B6 6.2. Hemoglobin A1c 5.6%. Serum protein electrophoresis unremarkable. MRI of the lumbar spine without contrast [place] [facility] [place]20[place]24: Multilevel degenerative disc disease without [...] EMG of the bilateral lower extremities at [facility] on 07/23/2024: Generalized process such [...] if needed for new or worsening symptoms. Xu Clement NP [facility] documented in this [facility]01-28-2025 Instructions* Patient Instructions* Xu Clement NP - 12/29/2024 1:00 PM EST - Check labs - Follow up with pain management documented in this [facility]01-02-2025 History of Present illness Narrative* Brenda Begum [...] began experiencing symptoms a few days before [place], including a sore throat that progressed to [...] History: Diagnosis Date CAD (coronary artery disease) ([facility]) Disturbance of skin sensation Essential hypertension (CMS/HCC) [...] referral to Sleep Medicine 2. Essential hypertension ([facility]) Ambulatory referral to Sleep Medicine 3. Mild persistent asthmatic bronchitis without complication ([facility]) 4. Class 2 severe obesity due to excess calories with serious comorbidity and body mass index (BMI)of 39.0 to 39.9 in adult ([facility]) 5. Upper respiratory tract infection, unspecified type benzonatate (Tessalon) 100 MG capsule 6. Mild intermittent asthma with acute exacerbation ([facility]) predniSONE (Deltasone) 50 MG tablet Assessment & [...] to preserve muscle mass. documented in this encounterCrittenton Behavioral HealthRlsbfnvjmj94-24-0559 History of Present illness Narrative* Jaimee Enrique [...] mg, which was temporarily discontinued by her bank vault attendant for a 30-day heart evaluation. She resumed [...] Items Addressed This Visit Coronary artery disease ([facility]) Relevant Medications clopidogrel (Plavix) 75 MG tablet Hypothyroidism ([facility]/HCC) Relevant Medications levothyroxine (Synthroid, Levoxyl) 112 MCG [...] follow-up. Jaimee Enrique NP documented in this encounterCrittenton Behavioral HealthHucmlznssz11-60-6956 History of Present illness Narrative* Xu Clement NP - 10/12/2024 2:00 PM EST [...] wrist extensors , wrist flexor , and artificial glass eye maker strength 5/5. LUE strength deltoid , biceps , triceps , wrist extensors , wrist flexor , and artificial glass eye maker strength 5/5. RLE strength iliopsoas, quadriceps, tibialis [...] reflex 0. LLE Knee reflex 0. Coordination: Wyhubb-xu-rvcj testing normal. Rapid alternating movements are normal. Gait: Steady. Review and summary of old records: Labs on 10/07/2024: Serum immunofixation unremarkable. No monoclonality detected. TSH 1.080. Vitamin B6 - no result. RPR non reactive. Copper 99. Labs on 08/06/2024: Vitamin B12 368. Hemoglobin A1c 5.7% (elevated). EMG of the bilateral lower extremities at [facility] on 07/23/2024: Generalized process such [...] evaluation (vitamin B12, vitamin B6, hemoglobin A1c, PAPI, Lyme ab, and protein electrophoresis) to assess [...] if needed for new or worsening symptoms. Xu Clement NP [facility] Cosigned by Jazmine Benoit DO at 10/13/2024 7:58 AM EST documented in this [facility]11-11-2024 Instructions* Patient Instructions* Xu Clement NP - 10/12/2024 2:00 PM EST - Check labs - MRI of the lumbar spine documented in this [facility]10-15-2024 History of Present illness Narrative* Jazmine Benoit DO - 09/15/2024 3:15 PM EDT Images from the original note were not included. Chief complaint: Leg pain Subjective Adeal Hopkins, 64 y.o., female Patient is here [...] and 0 in the lower extremities Coordination: Xurusk-ev-ljga testing and rapid alternating movements are normal [...] plan, and return instructions documented in this encounterCrittenton Behavioral HealthDsblruzfmt99-04-1015 History of Present illness Narrative* Antonietta Ba, CHANGE MANAGER-GARMENT FITTER - 09/08/2024 1:50 PM EDT Lesions: Location: Abdomen Duration: About 10 years or so Quality: Very itchy, bothersome Modifying factors: Aggravated by picking Associated symptoms: Crusty bump Treatments: None New patient, referred by Lesa Alcantara NP All pertinent medical history, medications, and [...] limited to risks of scarring, darker or cryptographic machine operator pigmentary changes, recurrence, incomplete removal and infection. [...] for any new/changing lesions documented in this encounterCrittenton Behavioral HealthHqrkhrdyrc03-91-9001 History of Present illness Narrative* Bal Baeza, PT - 09/07/2024 10:30 AM EDT [...] her functional mobility. Pt. Works part-time at [employer]. Pt. Had EMG in bilateral LE on [...] to be instructed in home exercise program. Comber Operator Goals: To be met in 10 weeks [...] Please sign below. Date: documented in this encounterCrittenton Behavioral HealthHwkvomohkj73-80-7793 Telephone encounter Note* Telephone Encounter - Lilo Hawthorne - 08/31/2024 10:00 AM EDT Need to double check her last PT 07/30 if cont [facility] HealthOociiqkgrx77-18-9216 Miscellaneous Notes* Telephone Encounter - Lilo Hawthorne - 08/31/2024 10:00 AM EDT Need to double check her last PT 07/30 if cont * Telephone Encounter - Lilo Hawthorne - 08/31/2024 9:59 AM EDT $30.00 copay. documented in this encounterCrittenton Behavioral HealthZhdxxianhd95-62-1260 Telephone encounter Note* Telephone Encounter - Lilo Hawthorne - 08/31/2024 9:59 AM EDT $30.00 copay. [facility] HealthNhxlodfgup34-88-6490 History of Present illness Narrative* Lesa Alcantara, EUGENIE - 08/18/2024 3:00 PM EDT Adela Hopkins [...] dose with Dr. Benoit. documented in this encounterCrittenton Behavioral HealthHysyulwacy58-95-6965 History and physical note Author Fartun Tran [facility] August 10, 2024 6:33pmNote Date/TimeSeptember 2023 4:36pmAlec Ville [id number] Hospitalist H&P Signed Patient: Adela Hopkins V MR#: [id number] : 1960 Acct:[id number] Age/Sex: 64 / F Adm Date: 4 Loc: 3T Room: [address] [place] [address] Type: ADM INOo Attending Dr: Fartun Tran [...] except as mentioned elsewhere in the documentation [facility] Medical History Heart attack Hypertension Vagus nerve disorder Pt reports need for marquez cath for any procedure longer than 15 min. History of code blue after heart cath, bank vault attendant reported sensitive vagus nerve and instructed pt [...] PRN Chest Pain 30 days #25 tabs 04/10/21 [Rx Confirmed 08/10/24] clopidogrel 75 mg tablet [...] % (Auto) 8.2 % (.) 08/10/24 13:06 [place] % (Auto) 4.4 % (.) 08/10/24 13:06 Eos % (Auto) 0.7 % (.) 08/10/24 13:06 Baso % (Auto) 0.6 % (.) 08/10/24 13:06 Nucleat RBC Rel Count 0.1 /100 WBC (0-0.5) 08/10/24 13:06 Neut # (Auto) 6.5 x10E3/uL (1.8-7.7) 08/10/24 13:06 Lymph # (Auto) 0.6 x10E3/uL (1.00-4.8) L 08/10/24 13:06 [place] # (Auto) 0.3 x10E3/uL (0.0-0.8) 08/10/24 13:06 [...] <Electronically signed by Fartun Tran MD> 08/10/24 [address] [facility] Work Phone: 1(311) 114-262009-09-2024 Evaluation note* Diagnosis Onset Date Resolution Status Admit Date AV heart block resolvedSept2023 4:33pmChest painresolvedSept2023 4:33pm Neurocardiogenic syncoperesolvedSept2023 4:76tyUHQM-FkZ-3 positive resolvedSeptember 2023 4:33pmSymptomatic bradycardiaresolvedSeptember 2023 4:33pm [facility] Work Phone: 1(274) 813-923709-04-2024 History of Present illness Narrative* Lesa Alcantara, HOOP PUNCH AND COILER OPERATOR - 08/05/2024 9:45 AM EDT Images from [...] to bleed. She does not follow with buffet server. History of Present Illness The patient presents for an annual wellness visit. She reports a skin lesion that frequently gets caught on her toes, leading to irritation and itchiness. Additionally, she mentions the presence of several skin tags on her neck, which she is considering having removed. She has not previously consulted a buffet server. She acknowledges being overdue for a colonoscopy [...] or concerns. 5. Coronary artery disease involving hydaburg coronary artery of hydaburg heart without angina pectoris(CMS/HCC) Doing well. Denies [...] discomfortdue to its location. Referral to a buffet server will be made for further evaluation and [...] Total - Vitamin B12 documented in this encounterCrittenton Behavioral HealthKidxzvbkoo84-54-7170 History of Present illness Narrative* Bal Baeza, PT - 07/30/2024 2:00 PM EDT [...] her functional mobility. Pt. Works part-time at [employer]. Pt. Had EMG in bilateral LE on [...] to be instructed in home exercise program. Senior Care Goals: To be met in 10 weeks [...] Please sign below. Date: documented in this [facility]08-22-2024 History of Present illness Narrative* MEHREEN DuffT - 07/23/2024 10:00 AM EDT Images from the original note were not included. Reason for Appointment: EMG Patient: Adela Hopkins : 1960 EMG Computer: [employer] Referring Physician: Dr. Jazmine Benoit EMG: [facility] cashier courtesy booth: David Gonzalez RT(R) Office Location: [place] Reason for EMG: c/o low back pain that radiates down bilateral legs L>R, numbness/tingling in bilateral feet/legs. No hx of DM. Taking Plavix. Comments: Procedure was explained to the patient who expressed understanding. Patient appeared to have tolerated the test well despite some discomfort due to the nature of the test. documented in this [facility]02-22-2024 History of Present illness Narrative* Ivan Mejia, - 01/23/2024 9:50 AM EST Subjective Adela Hopkins is a 63 y.o. female Chief Complaint Follow-up 63-year-old female returns for follow-up she is doing well other than chronic exertional dyspnea. She was recently in the emergency room 1 week ago for chest pain syndrome all laboratories, ECGs etc.are reviewed, she was discharged without evidence of acute coronary syndrome She sustained inferior NH in April 2021 with primary PCI of [...] type, unspecified whether angina present, unspecified whether hyd[place] or transplanted heart 2. History of PTCA 3. History of ST elevation myocardial infarction (STEMI) 4. Ischemic cardiomyopathy 5. Hypertension, unspecified type 6. Mixed hyperlipidemia 7. Other fatigue 8. Former smoker 9. Difficulty breathing Scribe Attestation By signing my name below, Nadya, Chyna Shelby LPN attest that this documentation has been prepared [...] exam, discussion and plan. documented in this [facility] Work Phone: 1(915) 465-363902-22-2024 Instructions* Patient Instructions* Myrna Doyle LPN - [...] Provided instructions on exercise. [facility] Work Phone: 1(160) 162-734307-13-2022 Evaluation note* Encounter Date Diagnosis Assessment Notes Treatment Notes Treatment Clinical Notes Jun, Screening for colon cancer (ICD- 10 - Z12.11) [facility] 06-27-2022 Evaluation note* Encounter Date Diagnosis [...] printed, Rash home care material was printed [facility] 10-28-2021 Evaluation note* Encounter Date Diagnosis Assessment Notes Treatment Notes Treatment Clinical Notes 28 Oct, 2021 Contact with and (nowak spected) exposure to [...] Patient care instructions given in writting by [facility] Care At Home document. [facility] Other 10-15-2021 Evaluation note* Encounter Date Diagnosis Assessment Notes Treatment Notes Treatment Clinical Notes Sep, Poison ender (ICD-10 - L23.7) Drink plenty fluids, get plenty of rest. Take the prednisone as prescribed until gone. Continue home medications as prescribed. Continue to use calamine lotion and Benadryl. Follow-up with your family physician if no improvement in 2 to 3 days [facility] Other Discharge summary Author Siobhan Whitfield [facility] August 11, 2024 1:25pmNote Date/TimeSept2023 1:25pm[place] [address] Discharge Summary Signed Patient: Adela Hopkins V MR#: [id number] : 1960 Acct:[id number] Age/Sex: 64 / F Adm Date: 4 Loc: Room: [address] [place] [address]: Siobhan Whitfield MD Copies to: [...] hold. Sheis advised to follow-up with her bank vault attendant and return to the emergency room if [...] DAILY Hold Instructions: Until seen by your bank vault attendant. carvedilol 6.25 mg Tablet 6.25 mg PO BID.WITH.MEALS 30 Days Qty: 60 12RF Hold Instructions: Until seen by your bank vault attendant. Discontinued losartan 25 mg Tablet 25 mg PO DAILY Exam Physical Exam Vital Signs: Temp Pulse Resp BP Pulse Ox O2 Del Method O2 Flow Rate 98.4 F 77 16 131/74 94 L Room Air 1 08/11/24 11:07 08/11/24 11:07 08/11/24 11:07 08/11/24 11:07 08/11/24 11:07 08/11/24 11:07 08/10/24 18:26 [...] % (Auto) 71.7, Lymph % (Auto) 18.8, [place] % (Auto) 9.1, Eos % (Auto) 0.1, Baso % (Auto) 0.3, Nucleat RBC Rel Count 0.2, Neut # (Auto) 4.9, Lymph # (Auto) 1.3, [place] # (Auto) 0.6, Eos # (Auto) 0.0, [...] signed by Siobhan Whitfield MD> 08/11/24 1325 [facility] Work Phone: Evaluation noteNo InformationNort [employer] Other evaluation noteNo assessment information available [facility] Work Phone: Evaluation note* Diagnosis Coronary artery disease, unspecified vessel or lesion type, unspecified whether angina present, unspecified whether [place] or transplanted heart History of PTCA Postsurgical percutaneous transluminal coronary angioplasty status History of ST elevation myocardial infarction (STEMI) Ischemic cardiomyopathy Other specified forms of chronic ischemic heart disease Hypertension, unspecified type Mixed hyperlipidemia Other fatigue Former smoker Personal history of tobacco use, presenting hazards to health Difficulty breathing Other dyspnea and respiratory abnormality documented in this encounter [facility] Work Phone: Evaluation note* Diagnosis Coronary artery disease, unspecified vessel or lesion type, unspecified whether angina present, unspecified whether [place] or transplanted heart History of PTCA Postsurgical percutaneous transluminal coronary angioplasty status Ischemic cardiomyopathy Other specified forms of chronic ischemic heart disease Hypertension, unspecified type Other fatigue Difficulty breathing Other dyspnea and respiratory abnormality documented in this encounter [facility] Work Phone: Evaluation note* Diagnosis Onset Date Resolution Status AV heart block acuteChest gbadxsguyOZLE-[id number]-4 positiveacuteSymptomatic bradycardiaacute [facility] Work Phone: Evaluation note* Diagnosis Onset Date Resolution Status AV heart block acuteChest painacuteNeurocardiogenic tjmgictyjuuoFSXR-[id number]-6 positiveacute Symptomatic bradycardiaacute [facility] Work Phone: Evaluation note* Diagnosis Pain in [...] Primary Acute cystitis with hematuria Acquired hypothyroidism ([facility]/HCC) Unspecified hypothyroidism Moderate major depression ([facility]) Major depressive disorder, single episode, moderate Coronary artery disease involving [place] coronary artery of [place] heart without angina pectoris ([facility]) documented [facility] this encounter [facility]* [...] at a health care facility Essential hypertension ([facility]) Unspecified essential hypertension Stage 3a chronic kidney disease (HCC) ([facility]/HCC) Chronic systolic congestive heart failure ([facility]/HCC) Coronary artery disease involving [place] coronary artery of [place] heart without angina pectoris ([facility]/HCC) Moderate major depression ([facility]) Major depressive disorder, single episode, moderate Pure hypercholesterolemia ([facility]) Pure hypercholesterolemia Changing skin lesion Unspecified disorder of skin and subcutaneous tissue Colon cancer screening Special screening for malignant neoplasms, colon Weakness of both lower extremities documented [facility] encounter [facility]* Diagnosis Witnessed episode of apnea- Primary Essential hypertension ([facility]/HCC) Unspecified essential hypertension Mild persistent asthmatic bronchitis without complication ([facility]) Class 2 severe obesity due to excess calories with serious comorbidity and body mass index (BMI) of39.0 to 39.9 in adult ([facility]) Upper respiratory tract infection, unspecified type Mild intermittent asthma with acute exacerbation ([facility]) Coronary artery disease involving [place] coronary artery of [place] heart without angina pectoris ([facility]) documented [facility] encounter [facility]* Diagnosis Gait instability- Primary Abnormality of gait Weakness Other malaise and fatigue Multilevel degenerative disc disease Polyneuropathy Unspecified hereditary and idiopathic peripheral neuropathy documented in this encounter [facility]* Diagnosis Ischemic cardiomyopathy- Primary Other specified forms of chronic ischemic heart disease Coronary artery disease, unspecified vessel or lesion type, unspecified whether angina present, unspecified whether [place] or transplanted heart Primary hypertension Unspecified essential hypertension Mixed hyperlipidemia BMI 40.0-44.9, adult (Multi) Nonrheumatic mitral valve regurgitation Coronary artery disease, unspecified vessel or lesion type, unspecified whether angina present, unspecified whether [place] or transplanted heart History of PTCA Postsurgical percutaneous transluminal coronary angioplasty status History of ST elevation myocardial infarction (STEMI) Ischemic cardiomyopathy Other specified forms of chronic ischemic heart disease Primary hypertension Unspecified essential hypertension Mixed hyperlipidemia Nonrheumatic mitral valve regurgitation Atypical chest pain Other chest pain Former smoker Personal history of tobacco use, presenting hazards to health BMI 39.0-39.9,adult documented in this encounter [facility] Work Phone: Evaluation note* Diagnosis Onset Date Resolution Status Admit Date Lumbar radiculopathy acuteFebruary 2024 10:47amLumbosacral spondylosisacuteFebruary 2024 10:47amNeck painacuteFebruary 2024 10:47amOther chronic painacuteFebruary 2024 10:47amSacroiliitisacuteFebruary 2024 10:47am [facility] Work Phone: Evaluation note* Diagnosis Left shoulder pain, unspecified chronicity Chronic left shoulder pain Pain in joint, shoulder region documented in this encounter [facility]* Diagnosis Ischemic cardiomyopathy- Primary Other specified forms of chronic ischemic heart disease Coronary artery disease, unspecified vessel or lesion type, unspecified whether angina present, unspecified whether [place] or transplanted heart Primary hypertension Unspecified essential hypertension Mixed hyperlipidemia BMI 40.0-44.9, adult (Multi) Nonrheumatic mitral valve regurgitation Coronary artery disease, unspecified vessel or lesion type, unspecified whether angina present, unspecified whether [place] or transplanted heart History of PTCA Postsurgical percutaneous transluminal coronary angioplasty status History of ST elevation myocardial infarction (STEMI) Ischemic cardiomyopathy Other specified forms of chronic ischemic heart disease Primary hypertension Unspecified essential hypertension Nonrheumatic mitral valve regurgitation documented in this encounter [facility] Work Phone: Evaluation note* Diagnosis Pre-op examination- Primary documented in this encounter [facility] HealthcareEvaluation note* Diagnosis Internal derangement of left shoulder- Primary Post-operative pain Other acute postoperative pain documented in this encounter [facility] HealthcareEvaluation note* Diagnosis S/P arthroscopy of left shoulder- Primary documented in this encounter [facility] HealthcareEvaluation note* Diagnosis S/P arthroscopy of left shoulder- Primary documented in this encounter [facility] HealthcareEvaluation note* Diagnosis Acute left-sided low back pain with bilateral sciatica- Primary Dysuria Coronary artery disease involving [place] coronary artery of [place] heart without angina pectoris documented in this encounter [facility] HealthcareEvaluation note* Diagnosis S/P arthroscopy of left shoulder- Primary documented in this encounter [facility] HealthcareEvaluation note* Diagnosis Acute pain of left shoulder- Primary S/P arthroscopy of left shoulder documented in this encounter [facility] HealthcareEvaluation note* Diagnosis Ischemic cardiomyopathy- Primary Other specified forms of chronic ischemic heart disease Coronary artery disease, unspecified vessel or lesion type, unspecified whether angina present, unspecified whether [place] or transplanted heart Primary hypertension Unspecified essential hypertension Mixed hyperlipidemia BMI 40.0-44.9, adult (Multi) Nonrheumatic mitral valve regurgitation Ischemic cardiomyopathy- Primary Other specified forms of chronic ischemic heart disease Coronary artery disease, unspecified vessel or lesion type, unspecified whether angina present, unspecified whether [place] or transplanted heart Primary hypertension Unspecified essential hypertension Mixed hyperlipidemia Nonrheumatic mitral valve regurgitation BMI 37.0-37.9, adult documented in this encounter [facility] Work Phone: History general Narrative - Reported* Type Description Date Medical History hypothyroid Medical Historyh/o of asthma in winterMedical HistoryPneumoniaMedical History chronic painMedical Historyspinal stenosisMedical HistorycataractsMedical HistoryHeart Attack [id number] History3 Heart StentsSurgical Historytotal hystSurgical HistorygallbladderSurgical HistoryappendixSurgical Historyheart cathSurgical Historytubal ligationSurgical Historyc sectionSurgical History wisdom teethSurgical HistorytonsilsSurgical Historyneck [id number] HistoryctsSurgical Historyknee scopeSurgical Historyshoulder surgerySurgical Historyheart catheterizationSurgical HistoryUlnar Nerve-Tor Braunurgical Historybilateral cataract /21Surgical Historynerve cauterization--neck 02/19Surgical HistoryHeart Surgery/ 3 [id number] HistoryHysterectomy Surgical HistoryNeck SurgeryHospitalization HistorySee aboveHospitalization Yujrpsmvfwmslp58/2016Hospitalization Srjsisiumhefwgvh70/25/17 [facility] Other History of Present illness Narrative* The patient states she has been generally doing well since the last visit. Comorbid Illnesses: cardiac failure, hypertension and hyperlipidemia. * Symptoms: denies chest pain at rest, denies exertional chest pain, improved dyspnea, stable fatigue, stable exercise intolerance, denies palpitations, denies edema, denies orthopnea, denies dizzinessand denies orthostatic dizziness. * Disease Monitoring: [facility] [employer] Work Phone: History of Present illness Narrative* The patient states she has been generally doing well since the last visit. Comorbid Illnesses: cardiac failure, hypertension and hyperlipidemia. * Symptoms: denies chest pain at rest, denies exertional chest pain, improved dyspnea, stable fatigue, stable exercise intolerance, denies palpitations, denies edema, denies orthopnea, denies dizzinessand denies orthostatic dizziness. * Disease Monitoring: [facility] [employer] Work Phone: History of Present illness Narrative* The patient presents with ischemic heart failure. The patient's last LV ejection fraction was 35%. The patient is NYHA functional Class II. This is stage C heart failure. * Symptoms: denies lower extremity edema, resolved dyspnea on exertion, stable fatigue, stable exercise intolerance, denies orthopnea and denies paroxysmal nocturnal dyspnea. [place] [employer] Work Phone: History of Present illness Narrative* [...] medication regimen. She denies medication side effects. [facility] Work Phone: History of Present [...] medication regimen. She denies medication side effects. [facility] 600 DO Work Phone: History of Present [...] medication regimen. She denies medication side effects. [facility] Work Phone: Hospital Discharge instructions Additional Instructions Flonase daily may be beneficial Tessalon Perles to suppress cough Good handwashing Zyrtec or Claritin daily Zofran for nausea vomiting Follow-up with your PCP call Dr. Newell office tomorrow as we discussed for follow-up appointment Humidifier may be beneficial Tylenol if needed for any pain Bananas, rice, applesauce, toast to help form your [facility] Work Phone: Hospital Discharge instructions Additional Instructions [...] NOT operate machinery such as power tools, [employer] mowers, snow blowers, sewing machines, etc. for [...] Follow up with PCP. - Office number [phone].[facility] Work Phone: Reason for referral (narrative)* Consultation (Routine) - Pending ReviewSpecialtyDiagnoses / ProceduresReferred By Contact Referred To ContactGastroenterology Diagnoses Colon cancer screening Procedures [place] OFFICE/OUTPATIENT [facility] MDM 60 MINUTES Lesa Alcantara, EUGENIE [address] [place] [address] Referral IDStatusReasonStart DateExpiration DateVisits RequestedVisits [id number] Review Consult and Treat / * Consultation (Routine) - Pending ReviewSpecialtyDiagnoses / ProceduresReferred By ContactReferred To ContactDermatology Diagnoses Changing skin lesion Procedures [place] OFFICE/OUTPATIENT [facility] MDM 60 MINUTES Lesa Alcantara NP [address] [place] [address] Lora Morillo PA [address] [place] [address] Referral IDStatusReasonStart DateExpiration DateVisits RequestedVisits [id number] Review Consult and Treat [facility] HealthcareReason for referral (narrative)No reason for referral information availableWhite [facility] Work Phone: Reason for visit Narrative* Consultation (Routine) - AuthorizedSpecialtyDiagnoses / ProceduresReferred By ContactReferred To ContactPhysical Therapy Diagnoses Pain in both lower extremities Paresthesia Procedures [place] OFFICE/OUTPATIENT [facility] MDM 60 MINUTES Jazmine Benoit DO [address] [place] [address] [address] [facility] [address] [place] [address] Referral IDStatusReasonStart DateExpiration DateVisits RequestedVisits [id number] Specialty Services Required / [facility] HealthcareReason for visit Narrative* Consultation (Routine) - Closed SpecialtyDiagnoses / ProceduresReferred By ContactReferred To Contact Dermatology Diagnoses Changing skin lesion Procedures [place] OFFICE/OUTPATIENT [facility] MDM 60 MINUTES Lesa Alcantara NP [address] [place] [address] Lora Morillo PA [address] [place] [address] Referral IDStatusReasonStart DateExpiration DateVisits RequestedVisits [id number] Consult and Treat / [facility] HealthcareReason for visit Narrative* Consultation (Routine) - Pending ReviewSpecialtyDiagnoses / ProceduresReferred By ContactReferred To Contact Physical Therapy Diagnoses Pain in both lower extremities Paresthesia Procedures [place] OFFICE/OUTPATIENT [facility] MDM 60 MINUTES Jazmine Benoit DO [address] [place] [address] [address] [facility] [address] [place] [address] Referral IDStatusReasonStart DateExpiration DateVisits RequestedVisits [id number] Review Specialty Services Required / [facility] HealthcareReason for visit Narrative* CV Imaging (Routine) - Authorized SpecialtyDiagnoses / ProceduresReferred By ContactReferred To Contact Cardiology Diagnoses Coronary artery disease, unspecified vessel or lesion type, unspecified whether angina present, unspecified whether [place] or transplanted heart History of PTCA History of ST elevation myocardial infarction (STEMI) Ischemic cardiomyopathy Primary hypertension Nonrheumatic mitral valve regurgitation Procedures Transthoracic Echo Complete [place] ECHO TTHRC R-T 2D W/WOM-MODE COMPL SPEC&COLR D Ivan Mejia, DO [address] [place] [address] Phone: tel: fax: Referral IDStatusReasonStart DateExpiration DateVisits RequestedVisits [id number] Perform Procedure / [facility] Work Phone: Summary Purpose Family History Unknown Family Member Name Dates Details Family [...] coronary artery bypass Unknownfamily memberDeceasedUnknown Advance Directives Advance Directive Response Recorded Date/ Time Advance Directives No October 2:16pm Advance Directive Response Recorded Date/ Time Advance Directives No October 1:16pm TypeDate RecordedPatient RepresentativeExplanationAdvance Directives and Living Will04/12/2025 8:55 [id number] Labs/MagruderTypeDate RecordedPatient RepresentativeExplanationAdvance Directives and Living Will04/12/2025 8:55 AM [id number] Labs/Leonarda Chief Complaint * I am doing [...] disease and cardiomyopathy. * Patient presents to [facility] for cardiovascular evaluation. 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 Agrees to start walking on a treadmill 30 minutes a day 3 times a week. * Overall patient is pleased with current state of cardiovascular health. At this time there are no indications for additional cardiovascular testing or need for medication changes. Chief Complaint and Reason for Visit Chief Complaint Admit Date REFF BY XU JENSEN January 19, 2025 10:47am Back Pain [...] 10, 2024 4:33pm Symptomatic bradycardia August 10, 024 4:33pm Chief Complaint Admit Date REFF BY XU JENSEN January 19, 2025 10:47am Chief Complaint Admit Date REFF BY XU JENSEN January 19, 2025 10:47am Back Pain February 03, 2025 8:05 am M54.2 February 10, 2025 2:3 0pm Chief Complaint Admit Date REFF BY XU JENSEN January 19, 2025 10:47am Back Pain [...] type, unspecified whether angina present, unspecified whether [place] or transplanted heart History of PTCA Ischemic cardiomyopathy Hypertension, unspecified type Other fatigue Difficulty breathing Procedures Transthoracic Echo Complete [place] ECHO TTHRC R-T 2D W/WOM-MODE COMPL SPEC&COLR D Roberto Ivan Lynn, DO [address] [facility] [place] [address] Referral IDStatusReasonStart DateExpiration DateVisits RequestedVisits [id number] Review Perform Procedure [id number] / ProceduresReferred By ContactReferred To ContactCardiology Diagnoses Coronary artery disease, unspecified vessel or lesion type, unspecified whether angina present, unspecified whether [place] or transplanted heart Procedures Follow Up In Cardiology Ivan Mejia, DO [address] [facility] [place] [address] Melanie Tracy, CHANGE MANAGER-GARMENT FITTER [address] [facility] [address] [place] [address] Referral IDStatusCl[facility] DateExpiration DateVisits RequestedVisits [id number]/22/20242/21/202511 Additional Source Comments INFORMATION SOURCE (unrecogn ized section and content) DATE CREATED AUTHOR 05/30/2018 [facility] DATE CREATED AUTHOR AUTHOR'S ORGANIZ ATION 11/24/2021 [facility] DATE CREATED AUTHOR AUTHOR'S ORGANIZ ATION 12/14/2022 [facility] DATE CREATED AUTHOR AUTHOR'S ORGANIZ ATION 01/16/2023 [facility] DATE CREATED AUTHOR AUTHOR'S ORGANIZ ATION 08/08/2023 [facility] DATE CREATED AUTHOR AUTHOR'S ORGANIZ ATION 08/08/2023 [facility] DATE CREATED AUTHOR AUTHOR'S ORGANIZ ATION 02/27/2025 [facility] DATE CREATED AUTHOR AUTHOR'S ORGANIZ ATION 05/03/2025 [facility] DATE CREATED AUTHOR AUTHOR'S ORGANIZ ATION 08/17/2025 [facility] DATE CREATED AUTHOR AUTHOR'S ORGANIZ ATION 09/05/2025 [facility] DATE CREATED AUTHOR AUTHOR'S ORGANIZ ATION 10/05/2025 [facility] REASON FOR VISIT (unrecogniz ed section and content) ReasonCommentsFollow-ra4vFbogakryeVaikuxptv / ProceduresReferred By Contact Referred To ContactCardiology Diagnoses Coronary artery disease, unspecified vessel or lesion type, unspecified whether angina present, unspecified whether [place] or transplanted heart History of PTCA Ischemic cardiomyopathy Hypertension, unspecified type Other fatigue Difficulty breathing Procedures Transthoracic Echo Complete [place] ECHO TTHRC R-T 2D W/WOM-MODE COMPL SPEC&COLR D Ivan Mejia S, DO [address] [address], [address] [address] Referral IDStatusReasonStart DateExpiration DateVisits RequestedVisits [id number] Perform Procedure /[id number] PainNumbnessReasonCommentsUTIReason CommentsHospital Follow-upReasonCommentsAnnual ExamReasonOnset DateCommentsPT cx 08/05/2024Lisasandra had called and lm re: PT today and needed to cx.FU4Called to recommend rs. She said she will get her work schedule tomorrow and will contact w/ availability.FU x24Called to rs and she said that the schedule will be hung up tonight and she will contact 08/10 w/ availability.FU x3 (final)08/10/2024ontacted and she noted off Wed & Th; she requested to schedule [id number].ReasonOnset DateCommentsPT Initial Eval4Contacted and offered scheduling PT [...] could schedule a reassess and cont on.FU 08/31/2024Lisae called back and I confirmed w/ Bal that we can cont off previous referral. I scheduled her 09/01 @ 1:30 w/ Josh Vela, [place].Reason CommentsCoughSymptoms started 1 week ago with a sore throat. Has taken Coricidin HBP, which did not help much.HeadacheReasonCommentsBack PainNumbnessReason CommentsFollow-up6 monthSpecialtyDiagnoses / ProceduresReferred By Contact Referred To ContactCardiology Diagnoses Coronary artery disease, unspecified vessel or lesion type, unspecified whether angina present, unspecified whether [place] or transplanted heart Procedures Follow Up In Cardiology Melanie Tracy, CHANGE MANAGER-GARMENT FITTER [address] [facility] [address], [facility] [address] [place] [address] Phone: tel: fax: Ivan Mejia, DO [address] [facility] [address], [facility] [address] [place] [address] Phone: tel: fax: Referral IDStatusReasonStart DateExpiration DateVisits RequestedVisits [id number]/7/20248/7/[id number]iptlgno Diagnoses / ProceduresReferred By ContactReferred To ContactOrthopaedic Surgery Diagnoses Chronic left shoulder pain Robert Newell MD [address] [facility] [address] [place] [address] Phone: tel: fax: Jr. Saul Hunt, DO [address] [place] [address] Phone: tel: fax: Referral IDStatusReasonStart DateExpiration DateVisits RequestedVisits [id number] Consult and Treat /[id number] Month Follow Up of Chronic ConditionsUrinary symptomsPtReasonCommentsPre-op ExamReasonCommentsPainReasonOnset DateCommentsPT PO Eval05/17/2025Need to send referral back once Eval scheduled for AuthReason CommentsLeg PainLeft sided, starts lower back and radiates down & around x2wks ReasonComments6 month follow up of chronic conditionsReasonCommentsFollow-up8 months follow up Coronary artery disease, unspecified vessel or lesion type, unspecified whether angina present, unspecified whether [place] or transplanted heartSpecialtyDiagnoses / ProceduresReferred By ContactReferred To Contact Cardiology Diagnoses Coronary artery disease, unspecified vessel or lesion type, unspecified whether angina present, unspecified whether [place] or transplanted heart Procedures Follow Up In Cardiology Ivan Mejia, DO [address] [facility] [address], [place] [address] Phone: tel: fax: Melanie Tracy, CHANGE MANAGER-GARMENT FITTER [address] [facility] [address], [address] [place] [address] Phone: tel: fax: Referral IDStatusReasonStart DateExpiration DateVisits RequestedVisits [id number] Care Teams (unrecognized sec tion and content) Team Status: Active Member Role Status Jas Newell MD Primary Care Provider Active Team Status: Active Member Role Status Jas Newell MD Primary Care Provider Active St art: August 25, 2025 Liu Campbell MDAttending ProviderActiveStart: August 25, 2025 Liu Campbell MDOther ProviderActiveStart: August 25, 2025 Team Status: Inactive Member Role Status Jas Newell MD Primary Care Provider Active St art: August 10, 2024 End: August 11Tal Garland ProviderActiveStart: August 10, 2024 End: August 11, 2024Obaydah M Daromar , MDAdmit ProviderActiveStart: August 10, 2024 End: August 11, 2024Manish Greenberg MDOther ProviderActiveStart: August 10, 2024 End: August 11, 2024Kiana Sorensenending ProviderActiveStart: August 10, 2024 End: August 11, 2024 Team Status: Active Member Role Status Jas Newell MD Primary Care Provider Active St art: August 10, 2024 Tal Sanchez ProviderActiveStart: August 10, 2024 Fartun Tran MDAdmit Provider, Other ProviderActiveStart: August 10, 2024 Jose Quezada ProviderActiveStart: August 10, 2024 Team Status: Active Member Role Status Jas Newell MD Primary Care Provider Active St art: August 10, 2024 Tal Sanchez ProviderActiveStart: August 10, 2024 Fartun Tran MDAdmit Provider, Attending ProviderActiveStart: August 10, 2024 Team [...] DateEnd Robert Tobar MD [address] [place] [phone] PCP - Nadzxll25/10/21Team MemberRelationshipSpecialtyStart DateEnd Robert Tobar MD [address] [place] [phone] PCP - Isqdptf75/10/21 Team Status: Inactive Member Role Status Dates Robert Newell MD Primary Care Provider Active St art: August 12, 2024 End: August 12, 2024Tal Chambers ProviderActiveStart: August 12, 2024 End: August 12, 2024 Team Status: Inactive Member Role Status Dates Robert Newell MD Primary Care Provider Active St art: August 15, 2024 End: August 15, 2024Jose Sorensen ProviderActiveStart: August 15, 2024 End: August 15, 2024Team MemberRelationshipSpecialtyStart DateEnd Date Robert Newell MD [address] [place] [address] PCP - GeneralInternal Medicine06/19/23 David Khan DPM [address] [address] Referring PhysicianPodiclearsky rehabilitation [facility]06/22/24Team MemberRelationshipSpecialtyStart DateEnd Date Robert Newell MD [address] [place] [place] [address] PCP - GeneralInternal Medicine06/19/23 David Khan DPM [address] [address] Referring PhysicianPodiclearsky [facility]06/22/24Team MemberRelationshipSpecialtyStart DateEnd Date Robert Newell MD [address] [place] [address] PCP - GeneralInternal Medicine06/19/23 David Khan DPM [address] [address] Referring PhysicianPodiatry06/22/24Team MemberRelationshipSpecialtyStart Robert Snell MD [address] [place] [address] PCP - GeneralInternal Medicine06/19/23 David Khan DPM [address] [address] [place] [address] Referring PhysicianPodiatry06/22/24Team MemberRelationshipSpecialtyStart [facility] Robert Newell MD [address] [place] [address] PCP - GeneralInternal Medicine06/19/23 David Khan DPM [address] [address] [place] [address] Referring PhysicianPodiatry06/22/24Team MemberRelationshipSpecialtyStart [facility] Robert Newell MD [address] [place] [address] PCP - GeneralInternal Medicine06/19/23 David Khan DPM [address] [address] [place] [address] Referring PhysicianPodiatry06/22/24Team MemberRelationshipSpecialtyStart Robert Snell MD [address] [place] [address] PCP - GeneralInternal Medicine06/19/23 David Khan DPM [address] [address] Referring PhysicianPodiatry06/22/24Team MemberRelationshipSpecialtyStart DateMem[facility] Robert Newell MD [address] [place] [address] PCP - GeneralInternal Medicine06/19/23 David Khan DPM [address] [address] Referring PhysicianPodifleming county hospitaly06/22/24Team MemberRelationshipSpecialtyStart DateEnd [facility] Robert Newell MD [address] [place] [address] PCP - GeneralInternal Medicine06/19/23 David Khan DPM [address] [address] Referring PhysicianPodiatry06/22/24Team MemberRelationshipSpecialtyStart DateEnd [facility] Robert Newell MD [address] [place] [address] PCP - GeneralInternal Medicine06/19/23 David Khan DPM [address] [address] Referring PhysicianPodiatry06/22/24 Team Status: Inactive Member Role Status Dates Robert Newell MD Primary Care Provider Active St art: October 20, 2024 End: October 20hristmarina Benoit , DOAttending ProviderActiveStart: October 20, 2024 End: October 20, 2024Team MemberRelationshipSpecialtyStart DateEnd Robert Newell MD [address] [place] [address] PCP - GeneralInternal Medicine06/19/23 David Khan DPM [address] [place] [address] Referring PhysicianPodiatry06/22/24Team MemberRelationshipSpecialtyStart End Robert Newell MD [address] [place] [address] P[facility] - [facility]06/19/23 David Khan DPM [address] [address] [place] [address] Referring PhysicianPodifleming county hospitaly06/22/24Team MemberRelationshipSpecialtyStart End Robert Newell MD [address] [place] [address] PCP - GeneralAurora West Hospitalnal [facility]06/19/23 David Khan DPM [address] [address] [place] [address] Referring PhysicianPodiclearsky [facility]06/22/24Team MemberRelationshipSpecialtyStart End Robert Newell MD [address] [place] [address] PCP - GeneralInternal Medicine06/19/23 David Khan DPM [address] [address] Referring PhysicianPodiatry06/22/24Team MemberRelationshipSpecialtyStart Robert Snell MD [address] [place] [address] PCP - GeneralInternal Medicine06/19/23 David Khan DPM [address] [address] Referring PhysicianPodiatry06/22/24Team MemberRelationshipSpecialtyStart [facility] Robert Newell MD [address] [place] [address] PCP - GeneralInternal Medicine06/19/23 David Khan DPM [address] [address] Referring PhysicianPodiatry06/22/24Team MemberRelationshipSpecialtyStart DateMiss[facility] Robert Tobar MD [address] [place] [address] PCP - GeneralInternal Medicine06/19/23 David Khan DPM [address] [address] Referring PhysicianPodiatry06/22/24Team MemberRelationshipSpecialtyStart Robert Snell L, MD [address] [place] [address] PCP - GeneralInternal Medicine06/19/23 David Khan DPM [address] [address] Referring PhysicianPodiatry06/22/24 Jazmine Benoit DO [address] [address] Referring PhysicianNeurology1/Team MemberRelationshipSpecialtyStart DateEnd [facility] Robert Newell MD [address] [place] [address] PCP - GeneralAurora West Hospitalnal Medicine06/19/23 David Khan DPM [address] [address] Referring PhysicianPodiatry06/22/24 Jazmine Benoit DO [address] [address] Referring PhysicianNeurology1Team MemberRelationshipSpecialtyStart DateEnd [facility] Robert Newell MD [address] [address] [place] [address] PCP - Umwggqb00/10/21 Team Status: Inactive Member Role Status Dates Robert Newell MD Primary Care Provider Active St art: January 19, 2025 End: January 19, 2025Jordan Salazar MDAttstanislav ProviderActiveStart: January 19, 2025 End: January 19, 2025Team MemberRelationshipSpecialtyStart DateEnd [facility] Robert Newell MD [address] [place] [address] PCP - GeneralInternal Medicine06/19/23 David Khan DPM [address] [address] Referring PhysicianPodiatry06/22/24 Jazmine Benoit DO [address] [place] [address] Referring PhysicianNeurology1Team MemberRelationshipSpecialtyStart DateMem[facility] Robert Newell MD [address] [place] [address] PCP - GeneralInternal Medicine06/19/23 David Khan DPM [address] [address] Referring PhysicianPodiatry06/22/24 Jazmine Benoit DO [address] [address] Referring PhysicianNeurology1Team MemberRelationshipSpecialtyStart DateEnd [facility] Robert Newell MD [address] [place] [address] PCP - GeneralInternal Medicine06/19/23 David Khan DPM [address] [address] Referring PhysicianPodiatry06/22/24 Jazmine Benoit DO [address] [place] [address] Referring PhysicianNeurology1 Team Status: Inactive Member Role Status Dates [...] art: February 12, 2025 End: February 12, 2025Jose Zimmer ProviderActiveStart: February 12, 2025 End: February 12, 2025Team MemberRelationshipSpecialtyStart DateEnd [facility] Robert Newell MD [address] [address] PCP - Ltszlgf87/10/21Team MemberRelationshipSpecialtyStart DateEnd Date Robert Newell MD [facility]andra [place] [address] PCP - GeneralInternal Medicine06/19/23 David Khan DPM [address] [address] Referring PhysicianPodiatry06/22/24 Jazmine Benoit DO [address] [place] [address] Referring PhysicianNeurology1Team MemberRelationshipSpecialtyStart [facility] Robert Newell MD [address] [place] [address] PCP - GeneralInternal Medicine06/19/23 David Khan DPM [address] [address] Referring PhysicianPodiatry06/22/24 Jazmine Benoit DO [address] [phone] Referring PhysicianNeurology1Team MemberRelationshipSpecialtyStart [facility] Robert Newell MD [address] [place] [address] PCP - GeneralInternal Medicine06/19/23 David Khan DPM [address] [address] Referring PhysicianPodiatry06/22/24 Jazmine Benoit DO [address] [address] Referring PhysicianNeurology1Team MemberRelationshipSpecialtyStart [facility] Robert Newell MD [address] [place] [address] PCP - GeneralInternal Medicine06/19/23 David Khan DPM [address] [address] Referring PhysicianPodiatry06/22/24 Jazmine Benoit DO [address] [address] Referring PhysicianNeurology1Team MemberRelationshipSpecialtyStart DateMem[facility] Robert Newell MD [address] [place] [address] PCP - GeneralInternal Medicine06/19/23 David Khan DPM [address] [place] [address] Referring PhysicianPodiatry06/22/24 Jazmine Benoit DO [address] [phone] Referring PhysicianNeurology1Team MemberRelationshipSpecialtyStart [facility] Robert Newell MD [address] [place] [address] PCP - GeneralInternal Medicine06/19/23 David Khan DPM [address] [place] [address] Referring PhysicianPodiatry06/22/24 Jazmine Benoit DO [address] [address] Referring PhysicianNeurology1Team MemberRelationshipSpecialtyStart [facility] Robert Tobar MD [address] [place] [address] PCP - GeneralInternal Medicine06/19/23 David Khan DPM [address] [address] [place] [address] Referring PhysicianPodiatry06/22/24 Jazmine Benoit DO [address] [address] Referring PhysicianNeurology1/Team MemberRelationshipSpecialtyStart DateMem[facility] Robert Newell MD [address] [place] [address] PCP - GeneralInternal Medicine06/19/23 David Khan DPM [address] [address] Referring PhysicianPodiatry06/22/24 Jazmine Benoit DO [address] [address] Referring PhysicianNeurology1Team MemberRelationshipSpecialtyStart [facility] Robert Newell MD [address] [place] [address] PCP - GeneralInternal Medicine06/19/23 David Khan DPM [address] [address] Referring PhysicianPodiatry06/22/24 Jazmine Benoit DO [address] [address] Referring PhysicianNeurology1Team MemberRelationshipSpecialtyStart [facility] Robert Newell MD [address] [place] [address] PCP - GeneralInternal Medicine06/19/23 David Khan DPM [address] [address] Referring PhysicianPodiatry06/22/24 Jazmine Benoit DO [address] [place] [address] Referring PhysicianNeurology1Team MemberRelationshipSpecialtyStart [facility] Robert Newell MD [address] [place] [address] PCP - GeneralInternal Medicine06/19/23 David Khan DPM [address] [address] Referring PhysicianPodiatry06/22/24 Jazmine Benoit DO [address] [address] Referring PhysicianNeurology1Team MemberRelationshipSpecialtyStart [facility] Robert Newell MD [address] [place] [address] PCP - GeneralInternal Medicine06/19/23 David Khan DPM [address] [address] Referring PhysicianPodiatry06/22/24 Jazmine Benoit DO [address] [place] [address] Referring PhysicianNeurology1/Team MemberRelationshipSpecialtyStart DateEnd Robert Newell MD [address] [place] [address] PCP - GeneralInternal Medicine06/19/23 Daivd Khan DPM [address] [address] Referring PhysicianPodiatry06/22/24 Jazmine Benoit DO [address] [address] Referring PhysicianNeurology1Team MemberRelationshipSpecialtyStart DateEnd Robert Newell MD [address] [place] [address] PCP - GeneralInternal Medicine06/19/23 David Khan DPM [address] [address] Referring PhysicianPodiatry06/22/24 Jazmine Benoit DO [address] [place] [address] Referring PhysicianNeurology1Team MemberRelationshipSpecialtyStart DateEnd Date Robert Newell MD [address] [place] [address] PCP - GeneralInternal Medicine06/19/23 David Khan DPM [address] [facility] [address] [place] [address] Referring PhysicianPodiatry06/22/24 Jazmine Benoit DO [address] [place], [place] [address] Referring PhysicianNeurolog12/29/24Te MemberRelationshipSpecialtyStart DateEnd Date Robert Newell MD [address] [place] [address] PCP - Qduefzx32/10/21 Goals (unrecognized section and content) Goals may [...] BE BASED ON THE PRIMARY CLINICAL RECORDS. [facility] [employer] [facility]. provides no warranty or guarantee of the accuracy or completeness of information in this document.
--- OUTSIDE RECORDS SUMMARY | 2025-10-06 20:37 | XMS_ITS | Clinical Summary ---
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 Role Phone Jarvis Collins MD Primary Care Provider [phone] David Khan DPM Unavailable [phone] Young Benoit DO Unavailable [phone] Allergies Active AllergyReactionsCriticalityNoted ImosQpcaauanMphxhefaDfi50/13/2023 Other Reaction(s): facial tingling/ rash HrfcvqeclmjgIzlfcXkp80/11/2024 homicidal LvhcsgtlmjwlivLvmsWfn00/13/2023 Other Reaction(s): Head Spinning / Hallucinations / Rash Other Reaction(s): Hives, vomitting/rash VvmqgeblsjsDzfmElh06/13/2023 Other Reaction(s): Tongue Swelling / Rash TicagrelorShortness of sbcryfLswu72/15/2024 Other Reaction(s): Difficulty Breathing OzxlddqiIfpecabKxc48/13/2023 Other Reaction(s): itching Medications MedicationSigDispense QuantityRefillsLast FilledStart [...] 75 MG tablet Indications:Coronary artery disease involving buckland coronary artery of buckland heart without angina pectorisTake 1 tablet (75 [...] hours if needed for wheezing 15 g ctive levothyroxine (Synthroid, Levoxyl) 100 MCG tablet Indications:Acquired [...] MG SL tablet Indications:Coronary artery disease involving buckland coronary artery of buckland heart without angina pectorisPlace 1 tablet (0.4 mg) under the tongue every 5 (five) minutes if needed for chest pain 90 tablet 5Active citalopram (CeleXA) 40 MG tablet Indications:Moderate major depression (HCC)Take 1 tablet (40 mg) by mouth Daily 90 tablet 5Active Semaglutide-Weight Management (Wegovy) 2.4 MG/0.75ML solution auto-injector Indications:Coronary artery disease involving buckland coronary artery of buckland heart without angina pectoris,Severe obesity (BMI 35.0-35.9 with comorbidity) ([facility]),BMI 37.0-37.9, adultInject 2.4 mg under the skin 1 (one) time per week 3 mL 505Active traZODone (Desyrel) 50 MG tablet Indications:Primary insomniaTake 1 tablet (50 mg) by mouth as needed at bedtime for sleep 30 tablet /033447/6Active atorvastatin (Lipitor) 40 MG tablet Take 40 mg by mouth at bedtimeActive gabapentin (Neurontin) 300 MG capsule Indications:Peripheral polyneuropathyTake 1 capsule (300 mg) by mouth at bedtime 30 capsule 5112/05/2025ctive Active Problems ProblemNoted DateDiagnosed DateOSA on CPAP10/06/2025Lesion of ulnar nerve, left upper limb07/11/2024Nonrheumatic mitral valve nbequqtkbzrha86/25/2024Lumbar vismzlqtulyhz09/20/2023ge-related osteoporosis without current pathological tdavidej98/19/5980Jbrxlq53/19/2023sthmatic rehjopygim35/19/2023hronic ykzjefixvsml55/19/2023ongestive heart kujkkfh2106/19/2023oronary artery disease 06/19/2023Essential mchnhvmgxkek24/19/2023astroesophageal reflux disease 06/19/20233764Omhiaonackbujk75/19/2023Internal derangement of left shoulder 06/19/2023Ischemic ilvbwwlmzycgtm23/19/2023Moderate major fzxcxsvxiy66/19/2023 Stage 3a chronic kidney vdizhja2706/19/2023Tension ohvswfks99/19/2023ure ubqoojxsiopxhcgmoewb72/19/2023Microscopic /10/2023 Resolved Problems ProblemNoted DateDiagnosed DateResolved DateST elevation (STEMI) myocardial jgudvhaxyt32History of oimxjvazggwk92 Encounters DateTypeDepartmentCare JlvgQidlkozlfdu12/05/2025Orders Only [facility] [address] [place] [address] Aletha Villeda DO 10/05/2025Telephone [facility] [address] [place] [address] Jarvis Collins MD 10/05/2025Telephone [facility] [address] [place] [address] Margarita Romero LPN Ufhktxituw96/25/2025Telephone [facility] [address] [place] [address] Jarvis Collins MD 08/25/2025Orders Only [facility] [address] [place] [address] Liu Campbell MD 08/16/2025 10:30 AM EDTOffice Visit [facility] [address] [place] [address] Jose Camarena PA Acute pain of left shoulder (Primary Dx); S/P arthroscopy of left tdidqmir65/15/2025Telephone [facility] [address] [place] [address] Jose Camarena PA 08/16/2025amboo flowsheet [facility] [address] [place] [address] Jose Camarena PA 08/16/20255787Tfnulc99/20/2025 1:00 PM EDTOffice Visit [facility] [address] [place] [address] 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, 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 Essential hypertension (Primary Dx); Stage 3a chronic kidney disease ([facility]); Coronary artery disease involving buckland coronary artery of buckland heart without angina pectoris ; Chronic systolic congestive heart failure (HCC); Pure hypercholesterolemia ; Moderate major depression (HCC); Acquired hypothyroidism ; Age-related osteoporosis without current pathological fracture ; Gastroesophageal reflux disease without esophagitis; Lumbar radiculopathy; Primary insomnia; Snoring; Colon cancer screening; Severe obesity (BMI 35.0-35.9 with comorbidity) ([facility]); BMI 37.0-37.9, adult07/21/20259226Fwbpnc90/11/2025 10:45 AM EDTOffice Visit [facility] [address] [place] [address] Jose Camarena PA S/P arthroscopy of left shoulder (Primary Dx)07/12/2025amboo flowsheet [facility] [address] [place] [address] Jose Camarena PA 07/12/2025Travelfrom Last 3 Months Immunizations ImmunizationAdministration DatesNext DueInfluenza, injectable, MDCK, preservative free, fbvwslkyyvlg46/29/2021Influenza, injectable, quadrivalent, preservative free08/23/2020Influenza, seasonal, idczzruimd16/31/2020 Family History Medical HistoryRelationNameCommentsMRSABrotherBrain cancerFatherHeart disease FatherStrokeFatherNo [...] drinks on one occasion?Never06/01/2025PHQ-2AnswerDate RecordedPatient Health Questionnaire-2 Enuge894CommentsNoSex and Gender Information ValueDate RecordedSex Assigned at BirthNot on fileLegal SkcKecmdl74/15/2023 6:48 PM EDTGender IdentityNot on fileSexual OrientationNot on fileOccupationIndustry Job Start DateJob End DateDisability. Works citizen participation specialist as cashierNot on fileNot on fileNot on file Last Filed Vital Signs Vital SignReadingTime TakenCommentsBlood Ciyenarr450/6208 1:14 PM EDT Tknfj9365 1:14 PM IMKYvuqxocpygt55.2 ??C (97.2 ??F)12/03/2024 9:38 AM ESTRespiratory Bnev965512/21/2023 3:06 PM ESTOxygen Vhldibpoyg47%07/21/2025 1:14 PM EDTInhaled Oxygen Concentration--Vovsye12.1 kg (203 lb)07/21/2025 1:14 PM EDT Wyhfcg358.5 cm (5' 2 )07/21/2025 1:14 PM EDTBody Mass Index37.13007/21/2025 1:14 PM EDT Plan of Treatment DateTypeDepartmentCare Team (Latest Contact Info)Yijfsqhgobd19/13/2025 10:30 AM ESTOffice Visit [facility] [address] [place] [address] Jose Camarena PA [address] [facility] [place] [address] 01/26/2026 1:00 PM ESTOffice Visit [facility] [address] [place] [address] Health MaintenanceDue DateLast DoneCommentsCT Gwzfqkgwjini1961FIT-DNA 1961FIT1961FOBT05/13/19612198Xiushycsyypay1961neumococcal Vaccine: Pediatrics (0 to 5 Years) and At-Risk Patients (6 to 64 Years) (1 of 2 - PCV)1980Pap Smear1982Cervical Cancer Eyuwxctbx76/12/1991HPV/Cotest 05/13/19917759Wgshwticu61/21/202508/, 06/26/2023, 10/17/2021OVID-19 Vaccine (2024- season), 12/07/2021Influenza Vaccine (#1) /, 12/01/2020, 08/23/20203130Zcqiegkeduj33 Colorectal Cancer Nvwsbspta31/24/2035 Procedures Procedure NamePriorityDate/TimeAssociated DiagnosisCommentsTITRATION STUDY Tsppjmb8709/22/2025 9:22 AM DIZEBCJYLIDXGCUkccokw46/24/2025 9:36 AM EDTT4, FREE Ywhclvh9007/19/2025 1:03 PM EDT Acquired hypothyroidism UMFMmxkxjn05/18/2025 1:03 PM EDT Acquired hypothyroidism LIPID HWOAMJkhbkiq72/18/2025 1:03 PM EDT Pure hypercholesterolemia COMPREHENSIVE METABOLIC GWIUJZmgrgiv05/18/2025 1:03 PM EDT Essential hypertension CBC (INCLUDES DIFF/PLT)Hgvjndg8907/19/2025 1:03 PM EDT Stage 3a chronic kidney disease (CMS-HCC) BI MAMMOGRAM SCREENING TOMOSYNTHESIS HOAEJNVKKHxezbtj82/21/2024 6:01 PM EDT Breast cancer screening by mammogram from Last 3 Months or Most Recently Relevant to Health Maintenance Results * Titration Study (09/22/2025 9:22 AM EDT) Narrative Authorizing ProviderResult TypeResult StatusNicmigdalia [facility] ORDERABLESFinal Result * Colonoscopy (08/25/2025 9:36 AM EDT)Anatomical RegionLateralityModality Endoscopy Narrative Authorizing ProviderResult TypeResult StatusCamwilda Campbell MDENDOSCOPY PROCEDURE ORDERABLESFinal Result * (ABNORMAL) CBC and differential (07/19/2025 1:03 PM EDT)ComponentValueRef RangeTest MethodAnalysis TimePerformed AtPathologist SignatureWBC5.53.4 - 10.8 x10E3/uLLABCORPRBC3.69(L)3.77 - 5.28 x10E6/zTYZKWUGGPph74.511.1 - 15.9 g/dL GKWXLFLIoe01.234.0 - 46.6 %LCKOYPSZLK0928 - 97 dEPBJRVKRHEH40.226.6 - 33.0 pg UVJJNXFQASW63.731.5 - 35.7 g/sBMTCTYNYIPS82.711.7 - 15.4 %RZOMVNHTvhowejkn610 150 - 450 x10E3/mAOKPWLCMObnozoohmpr62Dsa Estab. %YIEBNRVQrdfft58Iqj Estab. % ROWSTGQQfextqzqs5Lxf Estab. %RHMHVRVJrx0Hxq Estab. %DCWPCMFRehtw0Qba Estab. % LABCORPNeutrophils Abs3.41.4 - 7.0 x10E3/uLLABCORPLymphs Abs1.70.7 - 3.1 x10E3/uLLABCORPMonocytesAbs0.40.1 - 0.9 x10E3/uLLABCORPEos Abs0.10.0 - 0.4 x10E3/uLLABCORPBaso Abs0.00.0 - 0.2 x10E3/uLLABCORPImmature Jpwuaaprfmhh5Qss Estab. %LABCORPImmature Grans Abs0.00.0 - 0.1 x10E3/uLLABCORPSpecimen (Source) Anatomical Location / LateralityCollection Method / VolumeCollection Time Received TimeBloodVenous blood specimen / Wrbfjde6307/19/2025 1:03 PM EDT 07/19/2025 Narrative [facility] - 07/20/2025 6:06 AM EDT Performed at: 01 - [place] [address], [address], [place], [place] ??[id number] [place]: Matt Caal MD, Phone: ??[phone] Authorizing ProviderResult TypeResult StatusRobert Veronique Collins MDLAB BLOOD ORDERABLES Final ResultPerforming OrganizationAddressCity/State/ZIP CodePhone Number [facility] * TSH (07/19/2025 1:03 PM EDT)ComponentValueRef RangeTest MethodAnalysis Time Performed AtPathologist SignatureTSH0.7320.450 - 4.500 uIU/mLLABCORPSpecimen (Source)Anatomical Location / LateralityCollection Method / VolumeCollection TimeReceived TimeBloodVenous blood specimen / Nruzrxa34/ 1:03 PM EDT 07/19/2025 Narrative [facility] - 07/20/2025 6:06 AM EDT Performed at: - [place] [address], [address] [place] [address] ??[phone] [place]: Matt Caal MD, Phone: ??[phone] Authorizing ProviderResult TypeResult Trevor Collins MDLAB BLOOD ORDERABLES Final ResultPerforming OrganizationAddressty/State/ZIP CodePhone Number [facility] * T4, free (07/19/2025 1:03 PM EDT)ComponentValueRef RangeTest MethodAnalysis TimePerformed AtPathologist RdlppmglyP7Zkij(Direct)1.390.82 - 1.77 ng/dL [facility]ABC[facility]PSpecimen (Source)Anatomical Location / LateralityCollection Method / VolumeCollection TimeReceived TimeBloodVenous blood specimen / Unknown 07/19/2025 1:03 PM EDT07/19/2025 Narrative [facility] - 07/20/2025 6:06 AM EDT Performed at: 01 - [address], [address] [place] [phone] [place]: Matt Caal MD, Phone: ??[phone] Authorizing ProviderResult TypeResult Trevor WARD BLOOD ORDERABLES Final ResultPerforming OrganizationAddressCity/State/ZIP CodePhone Number [facility] * Lipid panel (07/19/2025 1:03 PM EDT)ComponentValueRef RangeTest MethodAnalysis TimePerformed AtPathologist SignatureCholesterol, Qkiba648846 - 199 mg/dL DLJTTSVLtnnuokfgerbm479 - 149 mg/dLLABCORPHDL Ypxaohhrogw65>39 mg/dLLABCORP VLDL Cholesterol Djy025 - 40 mg/dLLABCORPLDL Chol Calc (NIH)870 - 99 mg/dL [facility]ABC[facility]PSpecimen (Source)Anatomical Location / LateralityCollection Method / VolumeCollection TimeReceived TimeBloodVenous blood specimen / Unknown 07/19/2025 1:03 PM EDT07/19/2025 Narrative [facility] - 07/20/2025 6:06 AM EDT Performed at: 02 - [facility] [address] ??[id number] [place]: Rodrigo Pablo PhD, Phone: ??[phone] Authorizing ProviderResult TypeResult StatusJarvis WARD BLOOD ORDERABLES Final ResultPerforming OrganizationAddressCity/State/ZIP CodePhone Number [facility] * Comprehensive metabolic panel (07/19/2025 1:03 PM EDT)ComponentValueRef Range Test MethodAnalysis TimePerformed AtPathologist RbspvkxemRdvrrgb1310 - 99 mg/vCYZYMWPSCRP848 - 27 mg/dLLABCORPCreat0.790.57 - 1.00 mg/pSWXRVTVRHHSU13>59 mL/min/1.73LABCORPBUN/Creat Bnycm5940 - 54WGGVNCOAjxqkp590702 - 144 mmol/L [facility]PPotassium4.43.5 - 5.2 mmol/RBBMFAGKTkebdyal78224 - 106 mmol/[facility] Carbon Oumbtsc1969 - 29 mmol/LLABCORPCalcium9.18.7 - 10.3 mg/dLLABCORPProtein Total6.56.0 - 8.5 g/dLLABCORPAlbumin4.23.9 - 4.9 g/dLLABCORPGlobulin Total2.3 1.5 - 4.5 g/dLLABCORPBili Total0.40.0 - 1.2 mg/dLLABCORPAlk Lqteieogasl9097 - 121 IU/RXVHZRSSMQI5201 - 59 IU/WOHOSJZRVCQ646 - 35 IU/[facility]PSpecimen (Source)Anatomical Location / LateralityCollection Method / VolumeCollection TimeReceived TimeBloodVenous blood specimen / Vaxvhok1107/19/2025 1:03 PM EDT 07/19/2025 Narrative [facility] - 07/20/2025 6:06 AM EDT Performed at: 01 - [place] [address] , [address], [place], [place] ??[phone] [place]: Matt Caal MD, Phone: ??[phone] Authorizing ProviderResult TypeResult StatusJarvis WARD BLOOD ORDERABLES [...] IS VERY IMPORTANT TO YOUR HEALTH. ??THE [employer] GUID[employer]INES RECOMMEND THAT WOMEN 40 [...] IS VERY IMPORTANT TO YOUR HEALTH. [employer] GUID[employer]INES RECOMMEND THAT WOMEN 40 [...] RecordedPatient RepresentativeExplanationAdvance Directives and Living Will04/12/2025 8:55 [id number]-[facility] Care Teams Team MemberRelationshipSpecialtyStart DateEnd Jarvis Collins MD [address] [place] [address] PCP - GeneralInternal Medicine06/19/23 David Khan DPM [address] [address] Referring PhysicianPodiatry06/22/24 Young Benoit DO [address] [place] [address] Referring PhysicianNeurology1
--- OUTSIDE RECORDS SUMMARY | 2025-10-06 20:38 | XMS_ITS | Clinical Summary ---
Author Organization [facility] Address [address] [place] [address] Phone Care Team Providers Care Membership Sales Advisor Name Role Phone Jarvis Collins MD Primary Care Provider [phone] Allergies Active AllergyReactionsCriticalityNoted OvwaNnagqillMivtxxjqqzJjzsvWfd87/17/2024 RbyyltsmugoyzqIkidGfl34/17/0128PpalmowelavBqayNsh61/17/2024TramadolItchingLow 12/18/2023 Medications MedicationSigDispense QuantityRefillsLast FilledStart DateEnd DateStatus albuterol 90 mcg/actuation inhaler Inhale 2 puffs. As directed.Active nitroglycerin (Nitrostat) 0.[address] 1 tablet (0.4 mg) under the tongue every 5 minutes if needed for chest pain (Report to the ERor call 911 after the third dose.).Active sacubitriL-valsartan (Entresto) 24-26 mg tablet Take 1 tablet by mouth 2 times a day.09/20/2021ctive clopidogrel (Plavix) 75 mg tablet Indications:History of PTCATAKE ONE TABLET BY MOUTH DAILY 90 tablet ctive citalopram (CeleXA) 40 mg tablet Take 1 tablet (40 mg) by mouth once daily.Active semaglutide, weight loss, (Wegovy) 0.5 mg/0.5 mL pen injector Inject 0.5 mg under the skin 1 (one) time per week.5Active atorvastatin (Lipitor) 40 mg tablet Indications:Mixed hyperlipidemiaTake 1 tablet (40 mg) by mouth once daily. 90 tablet 304/09/046328/09/2026Active ondansetron ODT (Zofran-ODT) 4 mg disintegrating tablet Every 8 hours as needed for nausea and /15/2024Active pantoprazole (ProtoNix) 40 mg EC tablet 1 tablet (40 mg).5Active traZODone (Desyrel) 50 mg tablet Atyiyqo32/20/2025Active levothyroxine (Synthroid, Levoxyl) 100 mcg tablet 5Active carvedilol (Coreg) 3.125 mg tablet Indications:Primary hypertensionTake 1 tablet (3.125 mg) by mouth 2 times a day after meals. 180 tablet 5Active levothyroxine (Synthroid, Levoxyl) 112 mcg tablet Take 1 tablet (112 mcg) by mouth once daily in the morning. Take before meals. 10/04/2025Discontinued(Dose adjustment) gabapentin (Neurontin) 300 mg capsule Take 1 capsule (300 mg) by mouth 2 times a day.10/04/2025Discontinued (Discontinued by another clinician) carvedilol (Coreg) 3.125 mg tablet Indications:Primary hypertensionTAKE 1 TABLET BY MOUTH TWICE A DAY WITH A MEAL 180 tablet Discontinued(Reorder) Active Problems ProblemNoted DateDiagnosed DateBMI 37.0-37.9, adult01/06/2025 Assessment & Plan (10/06/2025 12:19 PM EST): Reviewed the merits of healthy lifestyle choices on overall cardiovascular health. Atypical chest pain01/06/2025Mitral valve glgawpkmuuqlb66/07/2024 Assessment & Plan (10/06/2025 12:18 PM EST): January 2025 TTE MR mild Assessment & Plan (07/08/2024 2:04 PM EDT): January 2023 TTE moderate MR Nrtcsfb9401/23/2024Former xyjlgl4101/23/2024AD (coronary artery disease)12/18/2023 Assessment & Plan (10/06/2025 12:17 PM EST): April 07, 2021 presented with acute inferior WA. At that time had PCI/Nelson proximal RCA with IVUS guidance and provisional PTCA PLV. August 23, 2021 mid RCA 50% with negative IFR after patent stent. Mild/moderate left main with IVUS 40% MLA 2.5 x 2.5 with reference size 4 mm. OM1/mid circumflex PCI/Nelson 2.5 x 15 mm Current daily activity greater than 4 METS without concerning symptoms Assessment & Plan (07/08/2024 2:02 PM EDT): April 07, 2021 presented with acute inferior WA. At that time had PCI/Sweetser proximal RCA with IVUS guidance and provisional PTCA PLV. August 23, 2021 mid RCA 50% with negative IFR after patent stent. Mild/moderate left main with IVUS 40% MLA 2.5 x 2.5 with reference size 4 mm. OM1/mid circumflex PCI/Nelson 2.5 x 15 mm Current daily activity greater than 4 METS without concerning symptoms Difficulty qtfqbsakw70/17/2024History of PTCA12/18/2023History of ST elevation myocardial infarction (STEMI)12/18/20234383Uxgjyqqaqioe95/17/2024 Assessment & Plan (10/06/2025 12:17 PM EST): On high intensity statin July 2025 HDL 57, LDL 87 Assessment & Plan (07/08/2024 2:03 PM EDT): On high intensity statin July 2024 LDL 91, HDL 57 Tzfdyvxrkczw98/17/2024 Assessment & Plan (10/06/2025 12:17 PM EST): Optimal in office Assessment & Plan (07/08/2024 2:03 PM EDT): Optimal in office Ischemic asgkoiqglgcdin71/17/2024 Assessment & Plan (10/06/2025 12:18 PM EST): ICM HF improved EF 55-60% January 2025 TTE ([facility]) January 2024 TTE EF 50-55% Aug 2021 cath EF 35% Nov 2021 TTE EF 55% Assessment & Plan (07/08/2024 2:04 PM EDT): ICM HF improved EF 50-January TTE Aug 2021 cath EF 35% Nov 2021 TTE EF 55% Stage 1 chronic kidney wyunlxj1812/18/2023 Resolved Problems ProblemNoted DateDiagnosed DateResolved DateBMI 40.0-44.9, adult07/08/2024 01/06/2025 Assessment & Plan (07/08/2024 2:04 PM EDT): Reviewed the merits of healthy lifestyle choices on overall cardiovascular health. CHF (NYHA class III, ACC/AHA stage C)Hypersomnolence Sleep apnea Encounters DateTypeDepartmentCare DadqOdcgkmbcsly16/03/2025 11:30 AM ESTOffice Visit [facility] [address] [phone] Dorie Tracy, [employer]SET FITTER-LEATHER CARTRIDGE BELT MAKER Ischemic cardiomyopathy (Primary Dx); Coronary artery disease, unspecified vessel or lesion type, unspecified whether angina present, unspecified whether wrangell or transplanted heart; Primary hypertension; Mixed hyperlipidemia; Nonrheumatic mitral valve regurgitation; BMI 37.0-37.9, adult Discharge Disposition: Home10/04/2025Travelfrom Last 3 Months Family History Medical HistoryRelationNameCommentsMIFatherNo Known ProblemsMotherRelationName StatusCommentsFatherMother Social History Tobacco UseTypesPacks/DayYears UsedDateSmoking Tobacco: FormerCigarettesQuit: 2001Smokeless Tobacco: NeverAlcohol UseStandard Drinks/WeekCommentsYes0 (1 standard drink = 0.6 oz pure alcohol)rarelyCommentsUnknownSex and Gender InformationValueDate RecordedSex Assigned at BirthNot on fileLegal SexFemale 10/27/2022 5:12 PM ESTGender IdentityNot on fileSexual OrientationNot on file Last Filed Vital Signs Vital SignReadingTime TakenCommentsBlood Ktabohog389/62 11:42 AM EST Sejxz037010/04/2025 11:42 AM ESTTemperature--Respiratory Rate--Oxygen Saturation-- Inhaled Oxygen Concentration--Qruyzs46.4 kg (206 lb)10/04/2025 11:42 AM EST Emntdb514.5 cm (5' 2 )10/04/2025 11:42 AM ESTBody Mass Index37.6810/04/2025 11:42 AM EST Plan of Treatment DateTypeDepartmentCare Team (Latest Contact Info)Epwtlvnhzrw44/05/2026 10:50 AM EDTOffice Visit [facility] [address] [facility] [address] [place] [address] James Hernández, [address] [facility] [address] [place], [place] [id number] Health MaintenanceDue DateLast DoneCommentsCT Jtktmwhphbug1961Creatinine Level1961FIT-DNA (Cologuard)1961FIT1961HIV Ngjuzcnwh1961 Potassium Level05/13/19610475Jdwdawwqwhbvu1961MMR Vaccines (1 of 1 - Standard series)2Diabetes Pwdhcumew05/12/1979Hepatitis C Gojesuepr73/12/1979CKD: Urine Protein Neryqnqix94/12/1980Pneumococcal Vaccine (1 of 2 - PCV)1980 Cervical Cancer Vnhnwntrm25/12/1982HPV/Oyazwa1105/13/1982Pap Smear1982 DTaP/Tdap/Td Vaccines (1 - Tdap)1983RSV High Risk: (Elderly (60+) or Population) (1 - Risk 50-74 years 1-dose series)2011Zoster Vaccines (1 of 2)2011Influenza Vaccine (#1)/, 12/02/2020, 08/23/2020, Additional history rycgyqWedvvxaox93/21/202508/, 07/22/2024, 06/26/2023, Additional history existsCOVID-19 Vaccine ( season)5Yearly Adult Sbyktnqg98/509/03/2024Echocardiogram /, 02/20/2024, 11/22/2021, Additional history existsTSH Level /, 01/18/2025, 07/02/2024, Additional history existsLipid Panel, 04/24/20213789Uytkvnriqbf99olorectal Cancer Ngifubkly79/24/2035HIB VaccinesAged OutNo longer eligible based on patient's age to complete this topicHPV VaccinesAged OutNo longer eligible based on patient's age to complete this topicHepatitis A VaccinesAged OutNo longer eligible based on patient's age to complete this topicHepatitis B VaccinesAged OutNo longer eligible based on patient's age to complete this topicIPV Vaccines Aged OutNo longer eligible based on patient's age to complete this topic Meningococcal VaccineAged OutNo longer eligible based on patient's age to complete this topicRotavirus VaccinesAged OutNo longer eligible based on patient's age to complete this topic Procedures Procedure NamePriorityDate/TimeAssociated DiagnosisCommentsTRANSTHORACIC ECHO (TTE) CIGTOZYVXprrdkw27/25/2025 8:38 AM EDT Coronary artery disease, unspecified vessel or lesion type, unspecified whether angina present, unspecified whether wrangell or transplanted heart History of PTCA History of ST elevation myocardial infarction (STEMI) Ischemic cardiomyopathy Primary hypertension Nonrheumatic mitral valve regurgitation LIPID DYVTDZkbuszn24/24/2021 11:34 AM EDT from Last 3 Months or Most Recently Relevant to Health Maintenance Results * TRANSTHORACIC ECHO (TTE) COMPLETE (02/23/2025 8:38 AM EDT)ComponentValueRef RangeTest MethodAnalysis TimePerformed AtPathologist SignatureAV mn btgt5ycNg SYNGOAV pk vel1.51m/sSYNGOLV Biplane EF46%SYNGOLVOT diam2.12cmSYNGOMV E/A ratio0.86SYNGOTricuspid annular plane systolic excursion1.7cmSYNGOMV avg E/e' ratio13.43SYNGOLA vol index A/L28.6ml/q5XZTUVJY EF58%SYNGORV free wall pk S' 9.89cm/mFCPCFWNGY80.1usUdSUPVSNULYi8.19cmSYNGOAortic Valve Area by Continuity of Peak Velocity2.65aq3UPSUDNZ pk icta3laVoYBNIIGeqtas Valve Area by Continuity of VTI2.82ne9DVMXONS A4C EF46.3SYNGOSpecimen (Source)Anatomical Location / LateralityCollection Method / VolumeCollection TimeReceived Time 02/23/2025 7:49 AM EDT Narrative SYNGO - 02/23/2025 1:42 PM EDT ?[address], [place] [address] ? TRANSTHORACIC ECHOCARDIOGRAM REPORT Patient Name: ? RACHAEL HOPKINS ? Reading Physician: ?[id number] Lindy ?[facility], [facility] Study Date: ? 02/23/2025 ? Ordering Provider: ?[id number] JAMES S ?EDGAR MRN/PID: ?[id number] ?Fellow: Accession#: ? [id number] ?Nurse: Date of /Age: ??1960 / 64 ?Feed Project Engineer: ?Isabel Emily RDMS, ?years ? RDCS, RVT Gender Assigned at ??F ? Additional Staff: : Height: ? 157.48 cm ? Admit Date: Weight: ? 97.98 kg ?Admission Status: ? Outpatient BSA / BMI: ?1.98 m2 / 39.51 ? Department Location: ??[facility] ?kg/m2 ? [place] Blood Pressure: 132 /70 mmHg Study Type: ?TRANSTHORACIC ECHO (TTE) COMPLETE Diagnosis/ICD: Atherosclerotic heart disease of wrangell coronary artery without ? angina pectoris-I25.10; Old myocardial infarction-I25.2; ? Essential (primary) hypertension-I10; Ischemic ? cardiomyopathy-I25.5 Indication: ?CAD, CP, HTN, HLD, ICM, MR, PTCA and STEMI CPT Codes: ? Echo Complete w Full Doppler-[id number] Study Detail: The following Echo studies were [...] Area A4C: ? 12.4 cm2 RA Major [place] A4C: 4.3 cm LV SYSTOLIC FUNCTION: ? [...] cm/s AORTA: Asc Ao Diam 2.70 cm [id number] Lindy Daly MD, [facility] Electronically signed on 02/23/2025 at 1:42:36 PM Final Procedure Note Lindy Daly MD - 02/23/[address], [address], [place] [address] TRANSTHORACIC ECHOCARDIOGRAM REPORT Patient Name: RACHAEL HOPKINS Reading Physician: [id number] Daly MD,[facility] Study Date: 02/23/2025 Ordering Provider: [id number] HERNÁNDEZ MRN/PID: [id number] Fellow: Nurse: Date of /Age: 605/13/1960 Feed Project Engineer: Isabel Hunter, years RDCS, RVT Gender Assigned at F Additional Staff: : Height: 157.48 cm Admit Date: Weight: 97.98 kg Admission Status: Outpatient BSA / BMI: 1.98 m2 / 39.51 Department Location: [facility] kg/m2 [place] Blood Pressure: 132 /70 mmHg Study Type: TRANSTHORACIC ECHO (TTE) COMPLETE Diagnosis/ICD: Atherosclerotic heart disease of wrangell coronary arterywithout angina pectoris-I25.10; Old myocardial infarction-I25.2; Essential (primary) hypertension-I10; Ischemic cardiomyopathy-I25.5 Indication: CAD, CP, HTN, HLD, ICM, MR, PTCA and STEMI CPT Codes: Echo Complete w Full Doppler-[id number] Study Detail: The following Echo studies were [...] RA Area A4C: 12.4 cm2 RA Major [place] A4C: 4.3 cm LV SYSTOLIC FUNCTION: Normal [...] cm/s AORTA: Asc Ao Diam 2.70 cm [id number] Lindy Daly MD, FACC Electronically signed on 02/23/2025 at 1:42:36 PM Final Authorizing ProviderResult TypeResult StatusWitiburcio CURRAN ECHO PROCEDURESFinal ResultPerforming OrganizationAddressCity/State/ZIP CodePhone Number SYN[place] * Lipid Panel (04/24/2021 11:34 AM EDT)ComponentValueRef RangeTest Method Analysis TimePerformed AtPathologist HmmvrdrfkJbwibcdwcny4338 - 199 mg/dL [facility] LABComment: . ?AGE ?DESIRABLE ?? BORDERLINE HIGH [...] be performed immediately prior to Metamizole dosing. HDL43.0mg/dLBAPTIST CHILDREN'S [facility] LABComment: . ?AGE ?VERY LOW ?? LOW ? NORMAL ?HIGH ?? 0-19 Y < 35 < 40 40-45 ---- 20-24 Y ---- < 40 >45 ---- >24 Y ---- < 40 40-60 >60 . Cholesterol/HDL Ratio3.2[facility]Comment: REF VALUES DESIRABLE < 3.4 HIGH RISK > 5.0 TOE444 - 99 mg/dLBAPTIST CHILDR[facility]'S [facility] LABComment: . ? NEAR ?BORD ?AGE ?DESIRABLE ??OPTIMAL ?HIGH ? HIGH ? VERY HIGH 0-19 Y 0 - 109 --- 110-129 >/= 130 ---- 20-24 Y 0 - 119 --- 120-159 >/= 160 ---- >24 Y 0 - 99 100-129 130-159 160-189 >/=190 . EWCY371 - 40 mg/dLB[facility] QPFXifdhctoibwcr593 - 149 mg/dLBAP[facility]IST [facility] LABComment: . ?AGE ?DESIRABLE ?? BORDERLINE HIGH [...] EDT Narrative Authorizing ProviderResult TypeResult StatusDorie Tracy [employer]TER-CNPLAB BLOOD ORDERABLESFinal ResultPerforming OrganizationAddressCity/State/ZIP CodePhone Number [facility] from Last 3 Months or Most Recently Relevant to Health Maintenance Insurance Care Teams Team MemberRelationshipSpecialtyStart DateEnd Jarvis Collins MD [address] [place] [phone] PCP - Ptkmtzg59/10/21
--- OUTSIDE RECORDS SUMMARY | 2025-10-06 20:38 | XMS_ITS | Encounter Summary ---
Author Organization [facility] Address [address] [place] [address] Care Team Providers Care Supervisor Mold Yard Name Role Phone Jarvis Collins MD Primary Care Provider [phone] David Khan DPM Unavailable [phone] Young Benoit DO Unavailable [phone] Encounter Details DateTypeDepartmentCare Team (Latest Contact Info)Rxylctjhzrj93/05/2025Orders Only [facility] [address] [facility] [address] [place] [phone] Aletha Villeda DO Social History Tobacco UseTypesPacks/DayYears UsedDateSmoking Tobacco: FormerCigarettes 12/02/1971 - 12/02/1999Smokeless Tobacco: NeverAlcohol UseStandard Drinks/Week CommentsYes0 (1 standard drink = 0.6 oz pure alcohol)Twice a year. Caffeine: Coffee, 4-5 daily. Pop, 3 cans weeklyAUDIT-CAnswerDate RecordedQ1: How often do you have a drink containing alcohol?Monthly or less06/01/2025Q2: How many drinks containing alcohol do you have on a typical day when you are drinking?1 or 2 06/01/2025Q3: How often do you have six or more drinks on one occasion?Never 06/01/2025PHQ-2AnswerDate RecordedPatient Health Questionnaire-2 Score0 06/01/2025CommentsNoSex and Gender InformationValueDate RecordedSex Assigned at BirthNot on fileLegal MolPspysl83/15/2023 6:48 PM EDTGender Identity Not on fileSexual OrientationNot on fileOccupationIndustryJob Start DateJob End DateDisability. 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 on fileNot on fileNot on file documented as of this encounter Plan of Treatment DateTypeDepartmentCare Team (Latest Contact Info)Naxvvqaohjm66/13/2025 10:30 AM ESTOffice Visit [facility] [address] [facility] [address] [place] [address] Jose Camarena, MANU[address] [place] [address] 01/26/2026 1:00 PM ESTOffice Visit [facility] [address] [facility] [address] [place] [address] documented as of this encounter Procedures Procedure NamePriorityDate/TimeAssociated DiagnosisCommentsTITRATION STUDY Xmzwadb0409/22/2025 9:22 AM EDTdocumented in this encounter Results * Titration Study (09/22/2025 9:22 AM EDT) Narrative Authorizing ProviderResult TypeResult StatusNicole [facility] ORDERABLESFinal Result documented in this encounter Visit Diagnoses Not on filedocumented in this encounter Care Teams Team MemberRelationshipSpecialtyStart DateEnd Date Jarvis Collins MD [address] [place] [phone] PCP - GeneralInternal Medicine06/19/23 David Khan DPM [address] [facility] [address] [place] [address] Referring PhysicianPodiatry06/22/24 Young Benoit DO [address] [place] [address] Referring PhysicianNeurolog12/29/24documented as of this encounter
--- OUTSIDE RECORDS SUMMARY | 2025-10-06 20:38 | XMS_ITS | Encounter Summary ---
Author Organization [facility] Address [address] [facility] [place] [address] Care Team Providers Care Laborer Road Name Role Phone Jarvis Collins MD Primary Care Provider [phone] David Khan DPM Unavailable [phone] Young Benoit DO Unavailable [phone] Reason for Visit * ReasonOnset EvvrIcwxeyccZrtyopslna22/04/2025 Encounter Details DateTypeDepartmentCare Team (Latest Contact Info)Nkbwdpisusz21/04/2025Telephone [facility] [address] [facility] [address] [place] [phone] Margarita Romero LPN [facility] Social History Tobacco UseTypesPacks/DayYears UsedDateSmoking Tobacco: FormerCigarettes [...] InformationValueDate RecordedSex Assigned at BirthNot on fileLegal FcoTngdsv68/15/2023 6:48 PM EDTGender Identity Not on fileSexual OrientationNot on fileOccupationIndustryJob Start DateJob End DateDisability. 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. * Telephone Encounter - Jarvis Collins MD - 10/05/2025 10:42 AM EST She can resume at 300 mg at bedtime to start and then can go to 300 mg twice a day if not better caitlin couple of days. Call if no better and we can continue to increase if she is tolerating this and not strong enough. * Telephone Encounter - Margarita Romero LPN - 10/05/2025 10:06 AM EST Pt called to see if she could restart the gabapentin, she is having issues with her legs documented in this encounter Plan of Treatment DateTypeDepartmentCare Team (Latest Contact Info)Zqgedvgvpvq49/13/2025 10:30 AM ESTOffice Visit [facility] [address] [place] [address] Jose Camarena, PA [address] [place] [address] 01/26/2026 1:00 PM ESTOffice Visit [facility] [address] [place] [address] documented as of this encounter Visit Diagnoses Diagnosis Peripheral polyneuropathy documented in this encounter Care Teams Team MemberRelationshipSpecialtyStart DateEnd Date Jarvis Collins MD [address] [place] [address] PCP - GeneralInternal Medicine06/19/23 David Khan DPM [address] [address] Referring PhysicianPodiatry06/22/24 Young Benoit DO [address] [place] [address] Referring PhysicianNeurology1documented as of this encounter
--- OUTSIDE RECORDS SUMMARY | 2025-10-06 20:38 | XMS_ITS | Encounter Summary ---
Author Organization [facility] Address [address] [place] [address] Phone Care Team Providers Care Manager Small Business Name Role Phone Jarvis Collins MD Primary Care Provider [phone] Encounter Details DateTypeDepartmentCare Team (Latest Contact Info)Lztlcycdifb37/03/2025Travel Social History Tobacco UseTypesPacks/DayYears UsedDateSmoking Tobacco: FormerCigarettesQuit: 2002Smokeless Tobacco: NeverAlcohol UseStandard Drinks/WeekCommentsYes0 (1 standard drink = 0.6 oz pure alcohol)rarelyCommentsUnknownSex and Gender InformationValueDate RecordedSex Assigned at BirthNot on fileLegal SexFemale 10/27/2022 5:12 PM ESTGender IdentityNot on fileSexual OrientationNot on file documented as of this encounter Functional Status * BPAnswerDate of MbbtnaoxitFjnqev055/6211 11:42 AM Rg oH MA * PulseAnswerDate of RoxjkmaeqsAwnhhk0500/03/2025 11:42 AM Rg Ho MA * Communicable Disease ScreeningQuestionAnswerDate of AssessmentAuthorDo you have any of the following new or worsening symptoms?None of these10/04/2025 11:27 AM Mary Squires documented as of this encounter Plan of Treatment DateTypeDepartmentCare Team (Latest Contact Info)Xaurdvdrsob61/05/2026 [address] [facility] [address] [place] [address] James Mejia, DO [address] [place] [address] documented as of this encounter Visit Diagnoses Not on filedocumented in this encounter Care Teams Team MemberRelationshipSpecialtyStart DateEnd Jarvis Collins MD [address] [place] [phone] PCP - Mshjqcw08/10/21documented as of this encounter
--- OUTSIDE RECORDS SUMMARY | 2025-10-06 20:38 | XMS_ITS | Encounter Summary ---
Author Organization [facility] Address [address] [place] [address] Care Team Providers Care Saddle Stitcher Name Role Phone Jarvis Collins MD Primary Care Provider [phone] David Khan DPM Unavailable [phone] Young Benoit DO Unavailable [phone] Encounter Details DateTypeDepartmentCare Team (Latest Contact Info)Eacpptyfgqf32/04/2025Telephone [facility] [address] [facility] [address] [place] [address] Jarvis Collins MD [address] [facility] [address] [place] [address] Social History Tobacco UseTypesPacks/DayYears UsedDateSmoking Tobacco: FormerCigarettes [...] InformationValueDate RecordedSex Assigned at BirthNot on fileLegal LmaIzapno06/15/2023 6:48 PM EDTGender Identity Not on fileSexual OrientationNot on fileOccupationIndustryJob Start DateJob End DateDisability. 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 advisor as cashierNot on fileNot on fileNot on file documented as of this encounter Miscellaneous Notes * Telephone Encounter - Margarita Romero LPN - 10/05/2025 10:32 AM EST Left message with MIKEY to see if they had suggestion on her sleep study documented in this encounter Plan of Treatment DateTypeDepartmentCare Team (Latest Contact Info)Bkxgfcgoqxk20/13/2025 10:30 AM ESTOffice Visit [facility] [address] [facility] [address] [place] [phone] Jose Camarena, PA [address] [place] [address] 01/26/2026 1:00 PM ESTOffice Visit [facility] [address] [facility] [address] [place] [address] documented as of this encounter Visit Diagnoses Not on filedocumented in this encounter Care Teams Team MemberRelationshipSpecialtyStart DateEnd Jarvis Collins MD [address] [place] [phone] PCP - GeneralInternal Medicine06/19/23 David Khan DPM [address] [facility] 5 [place] [address] Referring PhysicianPodiatry06/22/24 Young Benoit DO [address] [place] [address] Referring PhysicianNeurology1/documented as of this encounter
[2025-10-06] MEDS: PHENAZOPYRIDINE 100 MG TABLET PO (20:42)
[2025-10-06] MEDS: 0.9 % SODIUM CHLORIDE 1,000 ML 1000 ML IV (20:42)
[2025-10-06] MEDS: KETOROLAC TROMETHAMINE 30 MG/ML VIAL IVP (20:42)
[2025-10-06 20:50] LABS: Cast Seen? SEEN #/LPF (NONE SEEN); Crystals Seen? None Seen #/HPF (None Seen)
[2025-10-06 20:51] LABS: Urine Culture Indicated YES-FRMC
[2025-10-06 20:52] LABS: Alanine Aminotransferase 23 U/L (14-59); Albumin Globulin Ratio 1.0; Albumin Level 3.6 g/dL (3.4-5.0); Alkaline Phosphatase 84 U/L (46-116); Anion Gap 14.9; Aspartate Amino Transferase 21 U/L (15-37); Blood Urea Nitrogen 23.0 mg/dL (7.0-18.0); Calcium 9.0 mg/dL (8.5-10.1); Carbon Dioxide 25.0 mmol/L (21.0-32.0); Chloride 104 mmol/L (98-107); Estimated GFR (African America >60 (>=60 mL/min/1.73m^2); Estimated GFR (Non-African Ame >60 (>=60 mL/min/1.73m^2); Globulin 3.7 g/dL; Glucose 95 mg/dL (74-106); Potassium 3.9 mmol/L (3.5-5.1); Sodium 140 mmol/L (136-145); Total Protein 7.3 g/dL (6.4-8.2)
[2025-10-06 20:55] LABS: Lactate/Lactic Acid 0.5 mmol/L (0.4-2.0)
[2025-10-06] MEDS: CIPROFLOXACIN IN 5 % DEXTROSE 400 MG/200 ML PREMIX 200 MG IV (21:14)
[2025-10-06] MEDS: DIPHENHYDRAMINE HCL 50 MG/ML VIAL 12.5 MG IVP (21:44)
[2025-10-06 22:20] VITALS: BP 127/62; PULSE 81; O2SAT 98
== END 2025-10-06 22:22 | disposition home or self-care (01) ==
PROVIDERS: Emergency Provider Emergency Medicine; PCP Nurse Practitioner Family
DX: N39.0 Urinary tract infection, site not specified (principal); Z87.442 Personal history of urinary calculi; Z88.0 Allergy status to penicillin
CPT/HCPCS: 36415; 74176; 80053; 81001; 83605; 85025; 87086; 96365; 96375; 96376; 99285; J0744; J1200; J1885; J2405

== ENCOUNTER 2025-11-18 08:16 | Outpatient (OUT) | payer OTHER, SELFPAY ==
--- OUTSIDE RECORDS SUMMARY | 2025-11-18 08:17 | XMS_ITS | Clinical Summary ---
Author Organization [facility] Address [address] [place] [address] Care Team Providers Care Neon Tube Pumper Name Role Phone Jarvis Collins MD Primary Care Provider [phone] David Khan DPM Unavailable [phone] Young Benoit DO Unavailable [phone] Allergies Active AllergyReactionsCriticalityNoted TrmdAgrcnxdtZmpzaswhXzm75/13/2023 Other Reaction(s): facial tingling/ rash WpjwtlmjfclaWakjmRll25/11/2024 homicidal ClzxkgntmbwvniRscrOpy60/13/2023 Other Reaction(s): Head Spinning / Hallucinations / Rash Other Reaction(s): Hives, vomitting/rash IxqicmkrwhlSehxWwy40/13/2023 Other Reaction(s): Tongue Swelling / Rash TicagrelorShortness of rovbtgZvro37/15/2024 Other Reaction(s): Difficulty Breathing VhugimdjBolqryaGmj79/13/2023 Other Reaction(s): itching Medications MedicationSigDispense QuantityRefillsLast FilledStart [...] 75 MG tablet Indications:Coronary artery disease involving [place] coronary artery of [place] heart without angina pectorisTake 1 tablet (75 [...] MG SL tablet Indications:Coronary artery disease involving [place] coronary artery of [place] heart without angina pectorisPlace 1 tablet (0.4 mg) under the tongue every 5 (five) minutes if needed for chest pain 90 tablet 5Active citalopram (CeleXA) 40 MG tablet Indications:Moderate major depression (HCC)Take 1 tablet (40 mg) by mouth Daily 90 tablet 5Active Semaglutide-Weight Management (Wegovy) 2.4 MG/0.75ML solution auto-injector Indications:Coronary artery disease involving [place] coronary artery of [place] heart without angina pectoris,Severe obesity (BMI 35.0-35.9 with comorbidity) ([facility]),BMI 37.0-37.9, adultInject 2.4 mg under the skin 1 (one) time per week 3 mL 505Active traZODone (Desyrel) 50 MG tablet Indications:Primary insomniaTake 1 tablet (50 mg) by mouth as needed at bedtime for sleep 30 tablet /590081/6Active atorvastatin (Lipitor) 40 MG tablet Take 40 mg by mouth at bedtimeActive diclofenac sodium (Voltaren) 1 % gel Indications:Acute pain of left shoulder,Impingement of left shoulderApply 2 g topically in the morning and 2 g before bedtime. 15 g tive gabapentin (Neurontin) 300 MG capsule Indications:Peripheral polyneuropathyTake 2 capsules (600 mg) by mouth at bedtime 60 capsule ctive gabapentin (Neurontin) 300 MG capsule Indications:Peripheral polyneuropathyTake 1 capsule (300 mg) by mouth at bedtime 30 capsule Discontinued(Dose adjustment) predniSONE (Deltasone) 20 MG tablet Indications:Acute pain of left shoulder,Impingement of left shoulderTake 2 tablets (40 mg) by mouth Daily for 5 days, THEN 1 tablet (20 mg) Daily for 5 days. Take withfood. 15 tablet Expired Active Problems ProblemNoted DateDiagnosed DateOSA on CPAP10/06/2025Lesion of ulnar nerve, left upper limb07/11/2024Nonrheumatic mitral valve nskmfnzxnvliq59/25/2024Lumbar sekqtqhrnsbap88/20/2023ge-related osteoporosis without current pathological adsupuml35/19/6325Fihmgn56/19/2023sthmatic niqudpdjro72/19/2023hronic vveygbjzjucf80/19/2023ongestive heart aysyuxr4206/19/2023oronary artery disease 06/19/2023Essential crqcybpxnmux90/19/2023astroesophageal reflux disease 06/19/20235618Ostwqrobtoehez06/19/2023Internal derangement of left shoulder 06/19/2023Ischemic gemrxbimwqlwri52/19/2023Moderate major hmpekmdwkv23/19/2023 Stage 3a chronic kidney gmzzkrg9306/19/2023Tension shtiumhr12/19/2023ure rcnglxtxcdhrucchobsi57/19/2023Microscopic cyxgemohc79/10/2023 Resolved Problems ProblemNoted DateDiagnosed DateResolved DateST elevation (STEMI) myocardial mrdyuujnpj27History of yyffgtrvzndw14/29/202101/ Encounters DateTypeDepartmentCare GlntUnbzuwgawke14/26/2025Refill [facility] [address] [place] [address] Gayla Perez LPN Peripheral rwuufmdswfjzik71/13/2025 10:30 AM ESTOffice Visit [facility] [address] [place] [address] Jose Camarena, MANUEL Acute pain of left shoulder (Primary Dx); Impingement of left cemvpniq98/13/2025amboo flowsheet [facility] [address] [place] [address] Jose Camarena PA 10/14/20253587Acrnzn06/06/2025Orders Only [facility] [address] [place] [address] Unallocated, Jin Cook MD 10/06/2025Orders Only [facility] [address] [place] [address] Aletha Villeda DO 10/05/2025Telephone [facility] [address] [place] [address] Jarvis Collins MD 10/05/2025Telephone [facility] [address] [place] [address] Margarita Romero LPN Uvkwldspow78/25/2025Telephone [facility] [address] [place] [address] Jarvis Collins MD 08/25/2025Orders Only [facility] [address] [place] [address] Liu Campbell MD from Last 3 Months Immunizations ImmunizationAdministration DatesNext DueInfluenza, injectable, MDCK, preservative free, eqdrlhpjlwgh06/29/2021Influenza, injectable, quadrivalent, preservative free08/23/2020Influenza, seasonal, verhphvsua49/31/2020 Family History Medical HistoryRelationNameCommentsMRSABrotherBrain cancerFatherHeart disease FatherStrokeFatherNo [...] drinks on one occasion?Never06/01/2025PHQ-2AnswerDate RecordedPatient Health Questionnaire-2 Auzsw975CommentsNoSex and Gender Information ValueDate RecordedSex Assigned at BirthNot on fileLegal LlpRtecgq41/15/2023 6:48 PM EDTGender IdentityNot on fileSexual OrientationNot on fileOccupationIndustry Job Start DateJob End DateDisability. 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 supervisor assembly department as cashierNot on fileNot on fileNot on file Last Filed Vital Signs Vital SignReadingTime TakenCommentsBlood Gesubfpf678/6208 1:14 PM EDT Crjmi220507/21/2025 1:14 PM EBHChjkowtkgbm14.2 ??C (97.2 ??F)12/03/2024 9:38 AM ESTRespiratory Lham810412/21/2023 3:06 PM ESTOxygen Gvlcesrskj34%07/21/2025 1:14 PM EDTInhaled Oxygen Concentration--Iocseg59.1 kg (203 lb)07/21/2025 1:14 PM EDT Zzvshz237.5 cm (5' 2 )07/21/2025 1:14 PM EDTBody Mass Index37.1308 1:14 PM EDT Plan of Treatment DateTypeDepartmentCare Team (Latest Contact Info)Drownggvnel23/25/2026 1:00 PM ESTOffice Visit [facility] [address] [place] [address] Health MaintenanceDue DateLast DoneCommentsCT Cqgicumqpvvd1961FIT-DNA 1961FIT1961FOBT05/13/19619325Pucwbskrkqdvp1961neumococcal Vaccine: Pediatrics (0 to 5 Years) and At-Risk Patients (6 to 64 Years) (1 of 2 - PCV)1980Pap Smear1982Cervical Cancer Czgrvercn28/12/1991HPV/Cotest 05/13/19919423Pmnlgsfwb55/21/202508/, 06/26/2023, 10/17/2021OVID-19 Vaccine ( season)501/, 12/07/2021Influenza Vaccine (#1) 512/, 12/01/2020, 08/23/20203207Kpkuxrwwrzk00/24/70790408/25/2025 Colorectal Cancer Sktoobziv91/24/2035 Procedures Procedure NamePriorityDate/TimeAssociated DiagnosisCommentsCT ABDOMEN PELVIS W AND WO IV UWGDGZRHEhahllq42/05/2025 9:12 AM ESTTITRATION VVHDUDbjkswg67/22/2025 9:22 AM HIKGILCCMJBNKYQnxelog86/24/2025 9:36 AM EDTBI MAMMOGRAM SCREENING TOMOSYNTHESIS NGSZUGHHDPszpgre25/21/2024 6:01 PM EDT Breast cancer screening by mammogram from Last 3 Months or Most Recently Relevant to Health Maintenance Results * CT abdomen pelvis w and wo IV contrast (10/06/2025 9:12 AM EST)Anatomical RegionLateralityModalityBody, Pelvis, AbdomenComputed Tomography Narrative Authorizing ProviderResult TypeResult StatusNoms Provider Unallocated MDIMG CT PROCEDURESFinal Result * Titration Study (09/22/2025 9:22 AM EDT) Narrative Authorizing ProviderResult TypeResult StatusNicole [facility] ORDERABLESFinal Result * Colonoscopy (08/25/2025 9:36 AM EDT)Anatomical RegionLateralityModality Endoscopy Narrative Authorizing ProviderResult TypeResult StatusCameroradha Campbell MDENDOSCOPY PROCEDURE ORDERABLESFinal Result * Bilateral screening mammogram with tomosynthesis (07/22/2024 6:01 PM EDT) Anatomical RegionLateralityModalityBreastBilateralMammographySpecimen (Source) Anatomical Location / LateralityCollection Method / VolumeCollection Time Received Time07/28/2024 9:25 AM EDT Impressions 07/28/2024 10:18 AM EDT BIRADS 1 - Negative Follow-up: ??Routine Screening Mamm Board Certified Radiologists. ??Accredited by the ACR and FDA. MAMMOGRAPHY IS VERY IMPORTANT TO YOUR HEALTH. ??THE [employer] GUIDELINES RECOMMEND THAT WOMEN 40 [...] IS VERY IMPORTANT TO YOUR HEALTH. [employer] GUID[employer]INES RECOMMEND THAT WOMEN 40 [...] BY: Maurilio Guy MD Authorizing ProviderResult TypeResult StatusRobert Veronique Collins MDIMUli BI PROCEDURES Final Result from Last 3 Months or Most Recently Relevant to Health Maintenance Insurance Advance Directives TypeDate RecordedPatient RepresentativeExplanationAdvance Directives and Living Will04/12/2025 8:55 [id number] Labs/Leonarda Care Teams Team MemberRelationshipSpecialtyStart DateEnd Date Jarvis Collins MD [address] [place] [address] PCP - GeneralInternal Medicine06/19/23 David Khan DPM [address] [address] Referring PhysicianPodiatry06/22/24 Young Benoit DO [address] [facility] [address] [place] [address] Referring PhysicianNeurology1
== END 2025-11-18 08:17 | disposition home or self-care (01) ==
LOC: FHNEUROLOG 08:16
PROVIDERS: PCP Nurse Practitioner Family; Visit Provider Psychiatry & Neurology Neurology
DX: G47.33 Obstructive sleep apnea (adult) (pediatric) (principal)
CPT/HCPCS: G0463